=== PATIENT | male | born 1955 | race Caucasian/White ===

== ENCOUNTER 2016-11-06 10:06 | Emergency (ER) | payer OTHER ==
[2016-11-06] MEDS ORDERED: Ketorolac INJ* 30 MG/ML 1 ML VIAL IV PUSH ONE (14:00)
[2016-11-06] MEDS ORDERED: NS 0.9% 1000 ML* 1,000 ML IV ONE (14:03)
[2016-11-06 14:30] LABS: Hematocrit 39 % (42-52); Mean Corpuscular HGB Conc 34 g/dl (31-36); Mean Corpuscular Hemoglobin 28 pg (27-31); Mean Corpuscular Volume 83 fL (80-94); Mean Platelet Volume 8 um3 (7.4-10.4); Red Blood Count 4.63 10^6/ul (4.0-5.4); Red Cell Distribution Width 13 % (10.5-15); White Blood Count 9.7 10^3/ul (3.5-10.8)
[2016-11-06 14:47] LABS: Albumin 3.8 g/dL (3.2-5.2); BUN/Creatinine Ratio 11.4 (8-20); C Reactive Protein 137.71 mg/L (< 5.00); Calcium 9.3 mg/dL (8.6-10.3); EGFR African American 43.8 (>60); EGFR Non-African American 34.1 (>60); Globulin 4.4 g/dL (2-4); Potassium 4.2 mmol/L (3.5-5.0); Total Bilirubin 0.5 mg/dL (0.2-1.0); Total Protein 8.2 g/dL (6.4-8.9)
--- NOTE | 2016-11-06 16:01 | RAD ---
INDICATION: RIGHT lower extremity edema, redness, infection. COMPARISON: January 02, 2016 TECHNIQUE: Jackson scale, color Doppler, and spectral analysis of the deep veins of the RIGHT lower extremity. Vessel compression, phasicity, and augmentation assessed. REPORT: Subcutaneous edema visualized most prominent from level of the knee distal. No loculated soft tissue fluid collection visualized. Normal morphology RIGHT inguinal lymph nodes visualized. The RIGHT common femoral, great saphenous, profunda femoral, femoral, popliteal, and posterior tibial veins are patent. Only one of the peroneal veins could be visualized and appears patent. Patency of the contralateral common femoral vein documented. IMPRESSION: 1. No evidence for above-knee RIGHT lower extremity DVT. 2. Assessment of the RIGHT calf is limited with visualization of only 1 peroneal vein. 3. Extensive subcutaneous edema.
[2016-11-06 17:27] VITALS: BP 164/74
--- NOTE | 2017-01-04 12:41 | ED ---
Lower Extremity - HPI Summary HPI Summary: Pt here w/ possible Rt LE infection. Has redness and swelling which started 5 days ago. Denies fever, chills,N/V/D, weakness, chest pain, SOB. No known injury. Has diabetes - sugars are well controlled. Worse w/ movement, somewhat better w/ rest. - History of Current Complaint Chief Complaint: EDExtremityLower Stated Complaint: INFECTION RIGHT LEG Time Seen by Provider: 11/06/16 13:19 Hx Obtained From: Patient Pain Intensity: 2 Pain Scale Used: 0-10 Numeric - Allergies/Home Medications Allergies/Adverse Reactions: Allergies Allergy/AdvReac Type Severity Reaction Status Date / Time BP med Allergy Rash Uncoded 12/26/16 21:08 PMH/Surg Hx/FS Hx/Imm Hx Previously Healthy: Yes Endocrine/Hematology History: Reports: Hx Diabetes - TYPE 2 / ON ORAL MEDS Denies: Hx Anticoagulant Therapy, Hx Blood Disorders, Hx Thyroid Disease, Hx Coagulopothy Cardiovascular History: Reports: Hx Angina, Hx Hypercholesterolemia, Hx Hypertension, Other Cardiovascular Problems/Disorders - GOUT Denies: Hx Coronary Artery Disease, Hx Deep Vein Thrombosis, Hx Myocardial Infarction, Hx Pacemaker/ICD, Hx Valvular Heart Disease Respiratory History: Denies: Hx Asthma, Hx Chronic Obstructive Pulmonary Disease (COPD) GI History: Denies: Hx Ulcer Musculoskeletal History: Reports: Hx Gout, Other Musculoskeletal History - HIP PAIN Denies: Hx Arthritis, Hx Osteoporosis, Hx Scoliosis Sensory History: Reports: Hx Contacts or Glasses Denies: Hx Hearing Aid Opthamlomology History: Reports: Hx Contacts or Glasses Neurological History: Reports: Hx Headaches Denies: Other Neuro Impairments/Disorders Psychiatric History: Reports: Hx Anxiety, Hx Panic Disorder - Surgical History Surgery Procedure, Year, and Place: POLYPS REMOVED INTESTINE. APPENDECTOMY. KNEE SURGERY 1998 Hx Anesthesia Reactions: No Infectious Disease History: Denies: Hx Clostridium Difficile, Hx Hepatitis, Hx Human Immunodeficiency Virus (HIV), Hx of Known/Suspected MRSA, Hx Shingles, Hx Tuberculosis, Hx Known/ Suspected VRE, Hx Known/Suspected VRSA, History Other Infectious Disease, Traveled Outside the [place] in Last 30 Days - Family History Known Family History: Positive: Cardiac Disease, Other - father - asthma - Social History Alcohol Use: None Hx Substance Use: No Substance Use Type: Reports: None Hx Tobacco Use: No Smoking Status (MU): Never Smoked Tobacco Review of Systems Constitutional: Negative Eyes: Negative Cardiovascular: Negative Respiratory: Negative Positive: no symptoms reported Musculoskeletal: Other - see HPI Skin: Other - see HPI Neurological: Negative Psychological: Normal All Other Systems Reviewed And Are Negative: Yes Physical Exam Triage Information Reviewed: Yes Vital Signs On Initial Exam: Initial Vitals Temp Pulse Resp BP Pulse Ox 98.5 F 94 16 152/81 98 11/06/16 10:13 11/06/16 10:13 11/06/16 10:13 11/06/16 10:13 11/06/16 10:13 Vital Signs Reviewed: Yes Appearance: Positive: Well-Appearing, No Pain Distress, Well-Nourished Skin: Positive: Warm, Dry - mild erythema w/ mild edema over Rt LE - no skin breakdown Musculoskeletal: Positive: Strength/ROM Intact Neurological: Positive: Normal, Sensory/Motor Intact, Alert, Oriented to Person Place, Time Psychiatric: Positive: Normal - Brianna Coma Scale Coma Scale Total: 15 Diagnostics - Vital Signs Vital Signs Temp Pulse Resp BP Pulse Ox 11/06/16 17:09 99.7 F 89 16 164/74 11/06/16 16:05 99.6 F 85 16 147/72 94 11/06/16 11:48 98.5 F 86 18 169/83 98 11/06/16 10:13 98.5 F 94 16 152/81 98 - Laboratory Lab Results: Lab Results 11/06/16 11/06/16 11/06/16 Range/Units 14:20 14:20 14:20 WBC 9.7 (3.5-10.8) 10^3/ul RBC 4.63 (4.0-5.4) 10^6/ul Hgb 13.0 L (14.0-18.0) g/dl Hct 39 L (42-52) % MCV 83 (80-94) fL MCH 28 (27-31) pg MCHC 34 (31-36) g/dl RDW 13 (10.5-15) % Plt Count 335 (150-450) 10^3/ul MPV 8 (7.4-10.4) um3 Neut % (Auto) 71.2 (38-83) % Lymph % (Auto) 16.2 L (25-47) % [place] % (Auto) 9.4 H (1-9) % Eos % (Auto) 1.9 (0-6) % Baso % (Auto) 1.3 (0-2) % Absolute Neuts (auto) 6.9 (1.5-7.7) 10^3/ul Absolute Lymphs (auto) 1.6 (1.0-4.8) 10^3/ul Absolute Monos (auto) 0.9 H (0-0.8) 10^3/ul Absolute Eos (auto) 0.2 (0-0.6) 10^3/ul Absolute Basos (auto) 0.1 (0-0.2) 10^3/ul Absolute Nucleated RBC 0.03 10^3/ul Nucleated RBC % 0.4 Sodium 135 (133-145) mmol/L Potassium 4.2 (3.5-5.0) mmol/L Chloride 101 (101-111) mmol/L Carbon Dioxide 25 (22-32) mmol/L Anion Gap 9 (2-11) mmol/L BUN 23 (6-24) mg/dL Creatinine 2.01 H (0.67-1.17) mg/dL Est GFR ( Amer) 43.8 (>60) Est GFR (Non-Af Amer) 34.1 (>60) BUN/Creatinine Ratio 11.4 (8-20) Glucose 89 (70-100) mg/dL Lactic Acid 0.9 (0.5-2.0) mmol/L Calcium 9.3 (8.6-10.3) mg/dL Total Bilirubin 0.50 (0.2-1.0) mg/dL AST 12 L (13-39) U/L ALT 11 (7-52) U/L Alkaline Phosphatase 52 (34-104) U/L C-Reactive Protein 137.71 H (< 5.00) mg/L Total Protein 8.2 (6.4-8.9) g/dL Albumin 3.8 (3.2-5.2) g/dL Globulin 4.4 H (2-4) g/dL Albumin/Globulin Ratio 0.9 L (1-3) Result Diagrams: 11/06/16 14:20 11/06/16 14:20 Lab Statement: Any lab studies that have been ordered have been reviewed, and results considered in the medical decision making process. Lower Extremity Course/Dx - Course Course Of Treatment: DVT study neg - pt appears to have cellulitis - labs and vitals are unremarkable for systemic infection. Will start PO anbx and have pt f /u w/ PCP in a few days for wound recheck. Also educated about monitoring for gross changes in glucose levels and to report to PCP or ED if these present. Reviewed danger s/sx as well for when to return to ED. Pt voices understanding. - Diagnoses Provider Diagnoses: Cellulitis, leg Discharge - Discharge Plan Condition: Stable Disposition: HOME Patient Education Materials: Cellulitis (ED) Referrals: Daiana Bautista [Primary Care Provider] - Additional Instructions: You appear to have a cellulitis in your leg. This is a skin infection. Complete antibiotics as directed. Follow-up with PCP Friday for wound recheck. In the meantime, rest, elevate and take ibuprofen 600mg with food every 6 hours alternating with acetaminophen 650mg every 6 hours for pain/fever. It is also important that you take your diabetes medications as directed, check your glucose levels and eat a healthy diabetic diet during illness to ensure proper healing. *If symptoms are worse and/or you develop fever, chills, increased glucose despite taking ibuprofen alternating with acetaminophen for pain and fever, return to ED
== END 2016-11-06 17:09 | disposition home or self-care (01) ==
LOC: ED 10:06
DX: L03.119 Cellulitis of unspecified part of limb (principal)
CPT/HCPCS: 36415; 80053; 83605; 85025; 86140; 96374; 99282; J1885

== ENCOUNTER 2016-12-26 21:01 | Emergency (ER) | payer OTHER ==
[2016-12-26 21:08] VITALS: BP 158/78
[2016-12-26] MEDS ORDERED: Sulfamethox/Trimethoprim DS 800/160* TAB PO ONE (21:21)
--- NOTE | 2016-12-26 21:27 | UC ---
Upper Extremity HPI - HPI Summary HPI Summary: Pain, redness, and swelling in R posterior elbow since the middle of last night. Yesterday afternoon had blood draw for annual labs at [facility] in R antecubital fossa. Concerned about blood clots. Denies falls, contusion, trauma to elbow, recent or distant skin injuries, or chronic sources of pressure on the area. - History of Current Complaint Chief Complaint: UCUpperExtremity Stated Complaint: ARM PAIN Time Seen by Provider: 12/26/16 21:03 Hx Obtained From: Patient ?: No Onset/Duration: Gradual Onset, Lasting Hours Severity Initially: Mild Severity Currently: Moderate Location Of Pain: Is Discrete @ Character: Throbbing, Stiffness Aggravating Factor(s): Movement Alleviating Factor(s): Nothing - Allergies/Home Medications Allergies/Adverse Reactions: Allergies Allergy/AdvReac Type Severity Reaction Status Date / Time BP med Allergy Rash Uncoded 12/26/16 21:08 Home Medications: Home Medications Acetaminophen W/ Codeine [Acetaminophen/Codeine #3 300-30 mg] 1 tab PO PRN 12/26 [History] metFORMIN* [Glucophage 500 MG TAB *] 1,000 mg PO DAILY 12/26/16 [History Confirmed 12/26/16] PMH/Surg Hx/FS Hx/Imm Hx Previously Healthy: Yes - Surgical History Surgical History: Yes Surgery Procedure, Year, and Place: POLYPS REMOVED INTESTINE. APPENDECTOMY. KNEE SURGERY 1998 - Family History Known Family History: Positive: Cardiac Disease, Other - father - asthma - Social History Occupation: Retired Lives: With Family Alcohol Use: None Substance Use Type: None Smoking Status (MU): Never Smoked Tobacco - Immunization History Most Recent Influenza Vaccination: FALL 2014 Most Recent Tetanus Shot: UP TO DATE Most Recent Pneumonia Vaccination: 10/12/2013 Review of Systems Constitutional: Negative Skin: Other - redness R elbow Eyes: Negative ENT: Negative Respiratory: Negative Cardiovascular: Negative Gastrointestinal: Negative Genitourinary: Negative Motor: Negative Neurovascular: Negative Musculoskeletal: Negative Neurological: Negative Psychological: Negative All Other Systems Reviewed And Are Negative: Yes Physical Exam Triage Information Reviewed: Yes Appearance: Well-Appearing, Obese Vital Signs: Initial Vital Signs Temp 99.8 F 12/26/16 21:04 Pulse 64 12/26/16 21:04 Resp 16 12/26/16 21:04 BP 158/78 12/26/16 21:04 Pulse Ox 100 12/26/16 21:04 Vital Signs Reviewed: Yes Eye Exam: Normal Eyes: Positive: Conjunctiva Clear ENT Exam: Normal ENT: Positive: Normal ENT inspection, Hearing grossly normal, Pharynx normal, TMs normal Dental Exam: Normal Neck exam: Normal Neck: Positive: Supple, Nontender, No Lymphadenopathy Respiratory Exam: Normal Respiratory: Positive: Chest non-tender, Lungs clear, Normal breath sounds, No respiratory distress, No accessory muscle use Cardiovascular Exam: Normal Cardiovascular: Positive: RRR, No Murmur Musculoskeletal: Positive: Strength Intact, ROM Intact Neurological Exam: Normal Neurological: Positive: Alert Psychological Exam: Normal Skin Exam: Other - Red, hot swollen skin on R posterior elbow approx 10cm x 12cm. No fluctuant mass in skin or bursa, no skin injury visible. Venipuncture site on R antecubital fossa unremarkable. Upper Extremity Course/Dx - Differential Dx/Diagnosis Provider Diagnoses: Cellulitis R elbow Discharge - Discharge Plan Condition: Stable Disposition: HOME Prescriptions: Sulfamethox/Trimethoprim DS* [Bactrim DS 800/160 TAB*] 1 tab PO BID #14 tab Patient Education Materials: Cellulitis (ED) Referrals: Daiana Bautista [Primary Care Provider] - Additional Instructions: Apply warm soaks and elevate the arm when possible. You should see marked improvement in your pain, redness, and swelling within 48 hours. If you are not improving, and especially if you are worsening, please go to the emergency department for further care. Images Front/Back of Body, Lg (Toombs): 1 - well-defined oval area of redness, warmth, tenderness, swelling
== END 2016-12-26 21:30 | disposition home or self-care (01) ==
LOC: UCEAST 21:01
DX: L03.113 Cellulitis of right upper limb (principal); E66.9 Obesity, unspecified; Z88.8 Allergy status to other drugs, medicaments and biological substances
CPT/HCPCS: 99212; A9270-GY; G0463

== ENCOUNTER 2016-12-29 09:41 | Inpatient (IN) | payer OTHER ==
[2016-12-29 11:24] LABS: Hematocrit 33 % (42-52); Hemoglobin 11.2 g/dl (14.0-18.0); Mean Corpuscular HGB Conc 34 g/dl (31-36); Mean Corpuscular Hemoglobin 28 pg (27-31); Mean Corpuscular Volume 82 fL (80-94); Mean Platelet Volume 8 um3 (7.4-10.4); Red Blood Count 4.05 10^6/ul (4.0-5.4); Red Cell Distribution Width 13 % (10.5-15)
[2016-12-29 11:43] LABS: Albumin 3.4 g/dL (3.2-5.2); BUN/Creatinine Ratio 14.1 (8-20); C Reactive Protein 98.19 mg/L (< 5.00); Calcium 8.5 mg/dL (8.6-10.3); EGFR African American 25.1 (>60); EGFR Non-African American 19.5 (>60); Potassium 4.3 mmol/L (3.5-5.0); Total Bilirubin 0.3 mg/dL (0.2-1.0); Total Protein 7.4 g/dL (6.4-8.9)
--- NOTE | 2016-12-29 11:54 | RAD ---
HISTORY: Right upper extremity pain and swelling. COMPARISON: Similar ultrasound examination dated November 06, 2016 TECHNIQUE: Multiple transverse and longitudinal ultrasound images were obtained of the veins of the right lower extremity upper extremity using grayscale, color Doppler, and spectral Doppler imaging with and without compression and with augmentation. FINDINGS: VEINS: The axillary, brachial, basilic and cephalic are compressible throughout their course, with normal flow on color Doppler imaging and normal response to augmentation on spectral Doppler imaging. The subclavian vein exhibits appropriate augmentation and phasicity. The radial and ulnar veins are compressible. Evidence of adequate flow is identified in the right internal jugular and subclavian vein as well. SOFT TISSUES: Sonographic evidence of subcutaneous edema is seen overlying the right forearm. IMPRESSION: No sonographic evidence of deep vein thrombosis.
[2016-12-29] MEDS ORDERED: cefTRIAXone VIAL(*) 1,000 MG in NS 0.9% 50 ML* 50 ML IVPB ONE (12:25)
[2016-12-29] MEDS ORDERED: cefTRIAXone(*) 1 GM ADVAN ONE (13:04)
[2016-12-29] MEDS ORDERED: Acetaminophen TAB* 325 MG PO PRN (14:02)
[2016-12-29] MEDS ORDERED: Ondansetron INJ* 2 MG/ML VIAL IV PRN (14:02)
[2016-12-29] MEDS ORDERED: Dextrose 50% Syringe 50 ML* 25 GM/50 ML SYRINGE IV PUSH PRN (14:05)
[2016-12-29] MEDS: NS 0.9% 1000 ML* 1,000 ML IV SCH (16:22)
[2016-12-29] MEDS: Insulin LISPRO* 1 UNITS UNIT SUBCUT SCH (17:27)
[2016-12-29] MEDS: oxyCODONE/Acetamin 5/325 MG* TAB PO PRN (20:08)
[2016-12-29] MEDS: Heparin VIAL(*) 5000 UNITS/ML VIAL (FIVE THOUSAND) SUBCUT SCH (21:43)
--- NOTE | 2016-12-29 22:25 | HP ---
ATTENDING ADDENDUM NOW INCLUDED ON THIS REPORT CC: Daiana Bautista, [place], [place]* MEDICINE HISTORY AND PHYSICAL: DATE OF ADMISSION: 12/29/16 PROVIDER: Peewee Conn NP ATTENDING PHYSICIAN: Dr. Emily Steel *(as dictated by Peewee Conn NP). PRIMARY CARE PROVIDER: LIDA Melgar, [facility]. CHIEF COMPLAINT: Right upper extremity swelling following blood draw, now with nausea and dizziness. HISTORY OF PRESENT ILLNESS: Mr. Carrillo is a 61-year-old male patient, who reports having a blood draw at the [facility] at [place] on Friday, 25 of December. The patient states the blood draw was normal with no complaints of excess pain or trauma. However, the following day, he reports not being able to bend his arm. He did have the blood drawn from his antecubital site. He reported swelling and pain to the arm and reports it was warm to the touch. He did report to [facility] for further evaluation and was started on Bactrim. The patient states that he was taking his Bactrim; however, the swelling has progressed and has now extended to his hand. He reports pain in the joint, but is able to move the joints. He also reports decreased p.o. intake and dizziness, lightheadedness over the past few days secondary to starting his Bactrim. The patient denies any recent falls or contusions to the right upper extremity as well as recent trauma or injury or compression. He denies any fever or chills at home. He denies any cold or flu symptoms. He does not have any chest, pain, palpitations, or racing heartbeats. He does report right upper extremity edema. He denies any cough or shortness of breath , abdominal pain, vomiting, or diarrhea. He denies any dysuria, although he has decreased urinary output. He denies any focal weakness, sensory loss, visual or hearing changes, or any other than new joint or muscle pains. PAST MEDICAL HISTORY: 1. Hypertension. 2. Hyperlipidemia. 3. Diabetes mellitus, type 2. 4. History of anxiety. 5. History of gout. The patient states that this has resolved since he stopped using alcohol. PAST SURGICAL HISTORY: 1. Appendectomy. 2. Knee surgery. HOME MEDICATIONS: The patient is unsure of what he takes. He does report takin. Metoprolol XL. 2. Metformin. 3. Bactrim. 4. Amlodipine, but he cannot confirm the doses. [facility] The patient basically also takes cholesterol medication and states he was previously on Neurontin, but then it caused some diarrhea. ALLERGIES: Include a BLOOD PRESSURE MEDICATION that is unknown. FAMILY HISTORY: Reports history of heart disease in the father and history of diabetes in his mother. SOCIAL HISTORY: The patient denies any former or current tobacco use. He reports previous alcohol use but has stopped and does not drink currently. He denies any illicit drug use. He is not working. He is currently on disability. He lives alone. His son, Amie Carrillo, is his healthcare proxy in the event of emergency. REVIEW OF SYSTEMS: As previously mentioned, all others not mentioned are negative. PHYSICAL EXAMINATION GENERAL: Mr. Carrillo is a pleasant middle-aged male patient who is lying in ED stretcher in no acute distress. VITAL SIGNS: As follows; temperature 97, heart rate , respiratory rate 22 , blood pressure 129/67, O2 saturation 95% on room air. HEENT: Head is atraumatic, normocephalic. Face is symmetrical. Pupils are equal, round, and reactive to light. Oral mucosa appears moist. The patient has poor dentition. NECK: Supple. No lymphadenopathy appreciated. RESPIRATORY: Lungs are clear to auscultation with no accessory muscle use. CARDIAC: S1, S2 heart sounds. The patient has a systolic murmur. There is no peripheral edema to lower extremities. Distal pulses are 1+ in the lower extremities and 1+ to the upper extremities. There is right upper extremity edema. ABDOMEN: Soft, nontender, nondistended. Bowel sounds are present times all 4 quadrants. MUSCULOSKELETAL: There is no clubbing or cyanosis. The patient appears to have full range of motion. There is some mildly limited range of motion to the right hand finger joints, although they can be moved passively. The patient is able to demonstrate movement, although it does seem to cause some pain. NEURO: The patient is able to move all extremities. Cranial nerves II through XII are grossly intact. The patient with mildly decreased sensation to light touch and pinprick to lower extremities. PSYCH: He is alert and oriented x3. SKIN: Erythema and edema noted to the right upper extremity with notable edema up in the lateral portion of the lower right arm as well as to the dorsal surface of the hand. The venipuncture site to the right antecubital space is not visualized. There was no fluctuance or mass noted over the elbow, wrist joints or finger joints. No open areas or pockets of drainage noted. DIAGNOSTIC STUDIES/LAB DATA: CBC: WBC 9.0, hemoglobin , hematocrit 33, platelet count 242. CMP: Sodium 132, potassium 4.3, chloride 100, carbon dioxide 22, BUN 46, creatinine 3.26, glucose 104, lactic acid 1.1, calcium 8.5. Total bilirubin 0.3, AST 11, ALT 9, alk phos 52. CRP 98.19. Albumin 3.4. Venous Doppler study of the right lower extremity shows no sonographic evidence of deep vein thrombosis, no sonographic evidence of subcutaneous edema in the right forearm. Old medical records were reviewed. ASSESSMENT AND PLAN: Mr. Carrillo is a 61-year-old male patient with past medical history significant for previous cellulitis, hypertension, hyperlipidemia, diabetes, and gout who presents today with concern for continued right upper extremity cellulitis as well as acute kidney injury. We will admit him as observation patient to the medicine floor. Plan is as follows : 1. Cellulitis: Of note, the patient was here at our convenient care in October and was also diagnosed with cellulitis at that time, although that was to the patient's leg. At that time, he was treated with Bactrim and Augmentin. The patient also reports a previous history of gout and of note was seen last year in the hospital with what appeared to be either gout flare-up or arthritis. The patient is not a strong historian, it is unclear as why he keeps getting the recurrent cellulitis. I will check a hemoglobin A1c, although his random glucose does appear to be well controlled. In any case the patient was previously on Bactrim, which may have been contributing to his symptoms of nausea. We will switch him to Kefzol q.8. We will continue to monitor. At this point in time, there does not seem to be significant joint involvement. The majority of the swelling is located over the lateral portion of his right arm as well as dorsum of his hand. We will continue to follow closely. 2. Acute kidney injury: This is an acute on chronic kidney injury. The patient's last labs from October 2016 showed creatinine of 2.01. I am unclear what his baseline is and we will attempt to obtain some labs from the [facility] on Friday; however, his creatinine today is 3.26. He does report poor p.o. intake , which indicates that he likely has hypovolemia secondary to recent nausea. This may also be contributing to his complaints of dizziness and lightheadedness. We will hydrate the patient with normal saline and recheck his BMP tomorrow, also carefully monitor his I's and O's. 3. Hyponatremia: Likely secondary to hypovolemic state, secondary to dehydration from nausea. We will hydrate the patient with fluid and recheck tomorrow. 4. History of hypertension: The patient's blood pressure is currently within normal limits. We will need to confirm with home medications at this time. The patient is able to confirm that he is on amlodipine, metoprolol, which I will continue. The rest of the medications we will confirm with the [facility] tomorrow, Friday. 5. Diabetes mellitus: The patient states he is on metformin, which we will hold while he is here especially in light of his renal function. We will continue him on lispro sliding scale insulin and check fingerstick blood glucose h.s. and a.c. 6. Hyperlipidemia: The patient states he is on a statin medication. He is unable to tell me what medication that is. [facility] and resume when confirmed. 7. Peripheral neuropathy: The patient reports that he was previously on Neurontin, but stopped this because he feels this is causing him diarrhea. Again, we will obtain records from the [facility] to better clarify this. 8. History of anxiety: The patient states he does not take any medications for this. Continue to offer supportive care. 9. History of gout: The patient is not on any maintenance medications and denies any recent flare-ups. 10. FEN: Continue with IV hydration. The patient was ordered consistent carbohydrate diet. 11. Code status: The patient is a full code. 12. DVT prophylaxis: He is ordered subcu heparin. 13. Disposition: Admit to Medicine under observation status. Discharge to home when medically stable. TIME SPENT: Time spent on this admission was approximately 60 minutes, more than half that time was spent [id number] with the patient obtaining history and physical, performing the physical examination, and reviewing the plan of care. Plan of care was also reviewed with my attending, Dr. Steel, who is in agreement. PEEWEE CONN NP ADDENDUM: Mr. Carrillo is a 61-year-old male, who was treated as an outpatient for his arm cellulitis with Bactrim. Today, he presents complaining of continuation of symptoms of arm redness with creatinine elevated from his usual baseline. He is going to be admitted, treated with intravenous antibiotics for cellulitis. His acute renal failure is most likely a combination of spurious elevation of creatinine due to Bactrim as well as most likely the ongoing infection. For further details of the patient's presentation and plan, please see history and physical dictated by Peewee Conn NP, on 12/29/16, with which I agree. EMILY STEEL MD [id number]/[facility] #: [id number]/CPS #: [id number] MAG
--- NOTE | 2016-12-29 22:33 | HP ---
HISTORY AND PHYSICAL:* ADDENDUM: Mr. Carrillo is a 61-year-old male, who was treated as an outpatient for his arm cellulitis with Bactrim. Today, he presents complaining of continuation of symptoms of arm redness with creatinine elevated from his usual baseline. He is going to be admitted, treated with intravenous antibiotics for cellulitis. His acute renal failure is most likely a combination of spurious elevation of creatinine due to Bactrim as well as most likely the ongoing infection. For further details of the patient's presentation and plan, please see history and physical dictated by Keren Padilla NP, on 12/29/16, with which I agree. [id number]/[facility] #: [id number] MTDHeather
[2016-12-30] MEDS: ceFAZolin VIAL(*) 1 GM in NS 0.9% 50 ML* 50 ML IVPB SCH ×3 (00:13→23:55)
[2016-12-30] MEDS: NS 0.9% 1000 ML* 1,000 ML IV SCH (03:20)
[2016-12-30] MEDS: Heparin VIAL(*) 5000 UNITS/ML VIAL (FIVE THOUSAND) SUBCUT SCH ×3 (05:56→22:30)
[2016-12-30 06:05] LABS: Hematocrit 33 % (42-52); Hemoglobin 11.2 g/dl (14.0-18.0); Mean Corpuscular HGB Conc 34 g/dl (31-36); Mean Corpuscular Hemoglobin 28 pg (27-31); Mean Corpuscular Volume 82 fL (80-94); Mean Platelet Volume 9 um3 (7.4-10.4); Red Blood Count 3.98 10^6/ul (4.0-5.4); Red Cell Distribution Width 13 % (10.5-15); White Blood Count 7.8 10^3/ul (3.5-10.8)
[2016-12-30 06:33] LABS: BUN/Creatinine Ratio 15.2 (8-20); C Reactive Protein 69.13 mg/L (< 5.00); Calcium 8.4 mg/dL (8.6-10.3); EGFR African American 29.6 (>60)
[2016-12-30] MEDS: Metoprolol Succinate XL TAB* 25 MG PO SCH (08:34)
[2016-12-30] MEDS: amLODIPine TAB* 5 MG PO SCH (08:35)
[2016-12-30] MEDS: Insulin LISPRO* 1 UNITS UNIT SUBCUT SCH ×3 (08:35→17:29)
--- NOTE | 2016-12-30 08:59 | PN ---
Subjective Date of Service: 12/30/16 Interval History: Patient seen and examined at bedside. Reports right arm swelling and pain is mildly better but still endorses pain with extension/flexion movements of fingers and elbow. Denies CP, SOB, fever/chills. Denies any further dizziness or nausea. Family History: Unchanged from Admission Social History: Unchanged from Admission Past Medical History: Unchanged from Admission Objective Active Medications: Acetaminophen (Tylenol Tab*) 650 mg PO Q4H PRN PRN Reason: FEVER/PAIN Amlodipine Besylate (Norvasc Tab*) 10 mg PO DAILY [facility] Last Admin: 12/30/16 08:35 Dose: 10 mg Dextrose (D50w Syringe 50 Ml*) 12.5 gm IV PUSH .FOR FS < 60 - SS PRN PRN Reason: FS < 60 Heparin Sodium (Porcine) (Heparin Vial(*)) 5,000 units SUBCUT Q8HR [facility] Last Admin: 12/30/16 05:56 Dose: 5,000 units Cefazolin Sodium 1 gm/ Sodium (Chloride) 50 mls @ 200 mls/hr IVPB Q12H [facility] Last Admin: 12/30/16 00:13 Dose: 200 mls/hr Sodium Chloride (Ns 0.9% 1000 Ml*) 1,000 mls @ 100 mls/hr IV PER RATE [facility] Stop: 12/31/16 00:14 Last Admin: 12/30/16 03:20 Dose: 100 mls/hr Insulin Human Lispro (Humalog*) 0 units SUBCUT AC [facility] PRN Reason: Protocol Last Admin: 12/30/16 08:35 Dose: Not Given Metoprolol Succinate (Toprol Xl Tab*) 75 mg PO DAILY [facility] Last Admin: 12/30/16 08:34 Dose: 75 mg Ondansetron HCl (Zofran Inj*) 4 mg IV Q6H PRN PRN Reason: NAUSEA/VOMITING Oxycodone/Acetaminophen (Percocet 5/325 Tab*) 1 tab PO Q4H PRN PRN Reason: Pain Last Admin: 12/29/16 20:08 Dose: 1 tab Vital Signs 12/29/16 12/29/16 12/29/16 15:11 15:24 16:46 Temperature 98.0 F 98.0 F Pulse Rate 63 63 Respiratory 18 18 18 Rate Blood Pressure 143/77 143/77 (mmHg) O2 Sat by Pulse 98 98 Oximetry 12/29/16 12/29/16 12/29/16 19:46 20:08 22:08 Temperature 98.2 F Pulse Rate 65 Respiratory 17 17 16 Rate Blood Pressure 126/62 (mmHg) O2 Sat by Pulse 94 Oximetry 12/30/16 12/30/16 12/30/16 00:25 04:15 07:44 Temperature 97.6 F 97.7 F 97.9 F Pulse Rate 59 64 63 Respiratory 16 Rate Blood Pressure 127/54 132/56 150/71 (mmHg) O2 Sat by Pulse 94 93 94 Oximetry Oxygen Devices in Use Now: None Appearance: Male patient, sitting on edge of bed, eating breakfast, NAD Eyes: PERRLA Ears/Nose/Mouth/Throat: Mucous Membranes Moist Respiratory: Symmetrical Chest Expansion and Respiratory Effort, Clear to Auscultation Cardiovascular: NL Sounds; No Murmurs; No JVD, RRR Abdominal: NL Sounds; No Tenderness; No Distention Extremities: - - RUE edema to lateral and posterior forearm and elbow and along dorsum of right hand and fingers. No fluctuance or mass noted over elbow or wrist. Neurological: Alert and Oriented x 3 Lines/Tubes/Other Access: Clean, Dry and Intact Peripheral IV Nutrition: Taking PO's Result Diagrams: 12/30/16 05:19 12/30/16 05:19 Diagnostic Imaging: Doppler RUE: No sonographic evidence of DVT Assess/Plan/Problems-Billing Assessment: Mr. Carrillo is a 61 yo male with a PMH of HTN, HLD, DM, anxiety, and gout who presented to the ED on 12/29 with concern for dizziness, nausea, RUE edema and pain; patient previously on Bactrim prescribed by with no improvement. Patient also found to have JAJA. - Patient Problems (1) Cellulitis of right upper extremity Code(s): L03.113 - CELLULITIS OF RIGHT UPPER LIMB Comment: Patient seen by [facility] last week and prescribed Bactrim. Patient had little improvement in edema and erythema and reported subsequent dizziness and nausea. No fluctuance or mass seen over elbow, at wrist, or in finger joints. Continue cefazolin. Will consult ID, given recurrence of cellulitis and atypical distribution. (2) Acute kidney injury Code(s): N17.9 - ACUTE KIDNEY FAILURE, UNSPECIFIED Comment: Suspect acute on chronic process Suspect secondary to dehydration and Bactrim Now improving Obtain records from [facility] to establish baseline. (3) Diabetes Code(s): E11.9 - TYPE 2 DIABETES MELLITUS WITHOUT COMPLICATIONS Comment: HgbA1c 5.9 Continue FSBG with Lispro SSI Resume home metformin at discharge. (4) HTN (hypertension) Code(s): I10 - ESSENTIAL (PRIMARY) HYPERTENSION Comment: Mostly normotensive Continue home metoprolol, amlodipine. (5) HLD (hyperlipidemia) Code(s): E78.5 - HYPERLIPIDEMIA, UNSPECIFIED Comment: Obtain [facility] med list. Patient does not have documented hx of statin use. Continue heart healthy diet. (6) DVT prophylaxis Comment: SQ heparin Status and Disposition: OBV to inpatient. Anticipate dc in 2-3 days.
[2016-12-30 09:25] LABS: Uric Acid 9.9 mg/dL (4.4-7.6)
[2016-12-30] MEDS ORDERED: Vancomycin(*) 1,500 MG in NS 0.9% 250 ML* 250 ML IVPB ONE (14:00)
--- NOTE | 2016-12-30 14:18 | RAD ---
Indication: RIGHT forearm swelling and redness radiating into the fingertips. Cellulitis. Comparison: December 30, 2016 radiographs. Technique: Noncontrast MRI from the RIGHT elbow through the RIGHT wrist and metacarpal phalangeal joints. Multiplanar reformation. Report: Normal articular alignment. Negative for fracture. Small elbow joint effusion. No periosteal reaction or osteolysis evident. Extensive infiltrative subcutaneous edema from the visualized distal upper arm through the wrist with relative sparing of the radial aspect. No significant edema evident within the muscular compartments. No appreciable fluid within the dorsal or volar tendons sheaths at the wrist. Negative for subcutaneous emphysema. Soft tissue calcification is noted over the dorsal ulnar aspect of the elbow and proximal forearm. IMPRESSION: 1. The constellation of findings is consistent with extensive cellulitis given the clinical context. 2. Potential olecranon bursitis with calcified loose bodies. Correlate with clinical assessment. 3. No compelling CT evidence for presence of a loculated soft tissue plane abscess collection.
--- NOTE | 2016-12-30 14:50 | RAD ---
Indication: Right hand pain. 4 views of the right hand demonstrates no fracture. No other bone or joint abnormality is noted. IMPRESSION: Unremarkable right hand.
--- NOTE | 2016-12-30 14:51 | RAD ---
Indication: Right forearm swelling. 2 views of the right forearm demonstrates no fracture or dislocation. No other bone or joint abnormality is identified. IMPRESSION: No fracture of the right forearm is noted.
--- NOTE | 2016-12-30 15:26 | RAD ---
INDICATION: Soft tissue swelling COMPARISON: None TECHNIQUE: AP, lateral, and oblique views were obtained. FINDINGS: There are no acute bony findings. There is mild spurring from the coronoid process and olecranon There is diffuse subcutaneous edema with loss of the normal fat muscle interface. This extends into the forearm. There is no joint effusion. The elbow articulates normally. IMPRESSION: DIFFUSE SOFT TISSUE SWELLING ABOUT THE ELBOW EXTENDING INTO THE FOREARM. NO FRACTURE OR FOREIGN BODY.
[2016-12-30] MEDS ORDERED: Vancomycin per Pharmacy* NOTE FOLLOW UP PRN (15:57)
--- NOTE | 2016-12-30 16:14 | CONS ---
CONSULTATION REPORT: DATE OF CONSULTATION: 12/30/16 REQUESTING PROVIDER: Keren Padilla NP CONSULTING SERVICE: Infectious Disease. REASON FOR CONSULTATION: Right arm pain and swelling. IMPRESSION: 1. Right arm swelling and pain from the elbow to the fingertips, worse at the elbow, MCP joint, PIP and DIP joints; decreased finger flexion and extension; decreased elbow extension and flexion. The wrist is nontender and his range of motion is okay at the wrist. He has likely cellulitis, possible suppurative tenosynovitis, possible elbow septic arthritis. Myositis is a consideration as well given the diffuse aspect of this process. He is not febrile. He does not have bad pain with palpation of the musculature of the forearm, so I think myositis less likely as well as a fasciitis less likely. 2. Diabetes. RECOMMENDATIONS: Agree with cefazolin. I will add vancomycin in the event this is a resistant Staphylococcal infection. CT scan is pending. I would also ask Orthopedics to see him given what appears to be joint involvement of the right elbow and flexor tendons of the wrist. HISTORY OF PRESENT ILLNESS: This is a 61-year-old diabetic admitted with right arm pain and swelling. He has no particular injury, though he did have a blood draw last week. He a day later, developed some pain and swelling in the forearm , could not bend his fingers as well. On the , he came to the hospital. He has been afebrile. His CRP was 98 yesterday; it is down to 70 today. He was started on ceftriaxone, changed to cefazolin today. His creatinine was 3.2 yesterday; it is 2.8 today. He is feeling a bit better today. Energy and appetite improved. He has ongoing pain in the elbow and fingers. It is harder to bend both the elbow and the fingers. His wrist feels okay as far as moving that goes. He has not had anything like this in the past. He does not recall any particular injury. PAST MEDICAL HISTORY: 1. Diabetes. 2. Obesity. 3. Hypertension. 4. Hyperlipidemia. 5. Anxiety. 6. Gout. 7. Status post appendectomy. 8. Status post knee surgery. MEDICATIONS: 1. Tylenol. 2. Heparin subcutaneous injection. 3. Cefazolin 1 g every 12 hours. 4. Amlodipine. ALLERGIES: UNKNOWN BLOOD PRESSURE MEDICATION. FAMILY HISTORY: Father with heart disease. Mother with diabetes. SOCIAL HISTORY: He lives in [place]. No travel or sick contacts. No injection drugs. REVIEW OF SYSTEMS: All negative for review of systems except as noted above in the history of present illness. PHYSICAL EXAMINATION: Vital Signs: Temperature 36.6, heart rate 60, respiratory rate 16, blood pressure 150/70, O2 sat 94% on room air. In general , he is awake, not in distress. Neurologic: He is oriented x3. Follows all commands. HEENT: There is no conjunctival hemorrhage. Oropharynx without lesions. Neck: Supple without nuchal rigidity. Heart: Regular rate and rhythm without murmurs, rubs, or gallops. Lungs: Clear to auscultation bilaterally. Abdomen: Soft, nontender, nondistended. Skin: There is no rash or splinter hemorrhages. Musculoskeletal: There is no spine tenderness to palpation. The right elbow has decreased flexion and extension due to pain. It is okay with supination and pronation. The right wrist, there is no pain with flexion and extension. The MCP and PIP symptoms, flexion is decreased due to pain. There is no crepitus or fluctuance or tenderness from the elbow to the wrist nor is there is in the musculature of the fingers. LABORATORY DATA: CRP 70. Creatinine 2.8. White blood cell count 7, hemoglobin 11, platelets 244,000. Please see impression and recommendations outlined above, which I have discussed with Keren Padilla NP. Thanks for asking me to see Mr. Carrillo in consultation. [id number]/[facility] #: [id number] MTDD
[2016-12-30] MEDS: oxyCODONE/Acetamin 5/325 MG* TAB PO PRN (19:39)
[2016-12-31] MEDS: Vancomycin(*) 1,000 MG in NS 0.9% 250 ML* 250 ML IVPB SCH ×2 (04:31→16:53)
[2016-12-31] MEDS: Heparin VIAL(*) 5000 UNITS/ML VIAL (FIVE THOUSAND) SUBCUT SCH ×3 (05:35→21:32)
[2016-12-31 07:05] LABS: BUN/Creatinine Ratio 15.5 (8-20); Calcium 8.5 mg/dL (8.6-10.3); EGFR African American 37.1 (>60); EGFR Non-African American 28.9 (>60); Potassium 4.1 mmol/L (3.5-5.0)
--- NOTE | 2016-12-31 07:51 | RAD ---
INDICATION: Right forearm cellulitis evaluate for effusion. COMPARISON: Comparison is made with a prior x-ray study of the right forearm and CT of the right forearm from December 30, 2016. TECHNIQUE: Axial, sagittal and coronal T1 and T2-weighted images of the right forearm were obtained. FINDINGS: There is a large amount of soft tissue swelling with fluid tracking mainly within the subcutaneous tissues most consistent with cellulitis. In addition there is mild fluid seen within the interfascial muscle planes consistent with fasciitis. The bones are normal in signal intensity without evidence for osteomyelitis. There is a small effusion within the elbow joint. No focal fluid collection or abscess is seen. IMPRESSION: 1. FINDINGS MOST CONSISTENT WITH CELLULITIS AND FASCIITIS. NO EVIDENCE FOR ABSCESS. 2. SMALL EFFUSION WITHIN THE ELBOW JOINT.
[2016-12-31] MEDS: Insulin LISPRO* 1 UNITS UNIT SUBCUT SCH ×3 (07:58→16:59)
--- NOTE | 2016-12-31 08:45 | PN ---
Subjective Date of Service: 12/31/16 Interval History: Patient seen and examined at bedside. He denies fever/chills, CP, SOB, abd pain, n/v. He reports his right arm is starting to feel better today and notes less redness and swelling. Better ROM of noted today. Family History: Unchanged from Admission Social History: Unchanged from Admission Past Medical History: Unchanged from Admission Objective Active Medications: Acetaminophen (Tylenol Tab*) 650 mg PO Q4H PRN PRN Reason: FEVER/PAIN Amlodipine Besylate (Norvasc Tab*) 10 mg PO DAILY [facility] Last Admin: 12/30/16 08:35 Dose: 10 mg Dextrose (D50w Syringe 50 Ml*) 12.5 gm IV PUSH .FOR FS < 60 - SS PRN PRN Reason: FS < 60 Heparin Sodium (Porcine) (Heparin Vial(*)) 5,000 units SUBCUT Q8HR [facility] Last Admin: 12/31/16 05:35 Dose: 5,000 units Cefazolin Sodium 1 gm/ Sodium (Chloride) 50 mls @ 200 mls/hr IVPB Q12H [facility] Last Admin: 12/30/16 23:55 Dose: 200 mls/hr Vancomycin HCl 1,000 mg/ (Sodium Chloride) 250 mls @ 166.667 mls/hr IVPB Q12H [facility] Last Admin: 12/31/16 04:31 Dose: 166.667 mls/hr Insulin Human Lispro (Humalog*) 0 units SUBCUT AC [facility] PRN Reason: Protocol Last Admin: 12/31/16 07:58 Dose: Not Given Metoprolol Succinate (Toprol Xl Tab*) 75 mg PO DAILY [facility] Last Admin: 12/30/16 08:34 Dose: 75 mg Ondansetron HCl (Zofran Inj*) 4 mg IV Q6H PRN PRN Reason: NAUSEA/VOMITING Oxycodone/Acetaminophen (Percocet 5/325 Tab*) 1 tab PO Q4H PRN PRN Reason: Pain Last Admin: 12/30/16 19:39 Dose: 1 tab Pharmacy Consult (Vancomycin Per Pharmacy*) 1 note FOLLOW UP . PRN PRN Reason: PER PROTOCOL Pharmacy Profile Note (Vancomycin Trough Check) 1 note FOLLOW UP 1700 ONE Stop: 01/01/17 17:01 Vital Signs 12/30/16 12/30/16 12/30/16 11:33 15:38 15:47 Temperature 97.9 F 97.6 F 97.6 F Pulse Rate 55 61 61 Respiratory 16 16 16 Rate Blood Pressure 136/71 150/66 150/66 (mmHg) O2 Sat by Pulse 98 96 Oximetry 12/30/16 12/30/16 12/30/16 18:27 18:34 19:39 Temperature 97.8 F 97.8 F Pulse Rate 69 69 Respiratory 16 16 16 Rate Blood Pressure 164/68 164/68 (mmHg) O2 Sat by Pulse 98 98 Oximetry 12/30/16 12/30/16 12/30/16 20:00 21:39 23:20 Temperature 97.9 F Pulse Rate 62 Respiratory 16 16 16 Rate Blood Pressure 155/67 (mmHg) O2 Sat by Pulse 96 Oximetry 12/31/16 12/31/16 03:49 07:35 Temperature 97.7 F 97.7 F Pulse Rate 61 53 Respiratory 16 18 Rate Blood Pressure 156/75 143/64 (mmHg) O2 Sat by Pulse 98 98 Oximetry Oxygen Devices in Use Now: None Appearance: Male patient, lying in bed, NAD Eyes: PERRLA Ears/Nose/Mouth/Throat: Mucous Membranes Moist Respiratory: Symmetrical Chest Expansion and Respiratory Effort, Clear to Auscultation Cardiovascular: NL Sounds; No Murmurs; No JVD, RRR Abdominal: NL Sounds; No Tenderness; No Distention Extremities: - - RUE edema along lateral/posterior forearm, extending from elbow to finger joints. Improved flexion/extension of elbow, finger joint flexion still limited secondary to pain, PROM achieved Neurological: Alert and Oriented x 3, NL Muscle Strength and Tone Lines/Tubes/Other Access: Clean, Dry and Intact Peripheral IV Result Diagrams: 12/30/16 05:19 12/31/16 06:34 Diagnostic Imaging: Doppler RUE: No sonographic evidence of DVT RUE CT: extensive cellulitis, potential olecranon bursitis with calcified loose bodies. No compelling CT evidence for presence of a loculated soft tissue plane abscess collection. RUE MRI: findings most consistent with cellulitis and fascitis. No evidence for abscess. Small effusion within the elbow joint. XR of right hand, forearm, elbow: unremarkable R hand. No fx of right forearm present. Diffuse soft tissue swelling about the elbow, extending into the forearm; no fracture or foreign body of elbow. Assess/Plan/Problems-Billing Assessment: Mr. Carrillo is a 61 yo male with a PMH of HTN, HLD, DM, anxiety, and gout who presented to the ED on 12/29 with concern for dizziness, nausea, RUE edema and pain; patient previously on Bactrim prescribed by CC with no improvement. Patient also found to have JAJA. - Patient Problems (1) Cellulitis of right upper extremity Code(s): L03.113 - CELLULITIS OF RIGHT UPPER LIMB Comment: Improving, previously failed outpatient tx with Bactrim. Patient seen in consultation by Dr. Rodriguez, orthopedics, who saw no significant fluid collection in need of aspiration. Continue cefazolin and vancomycin. Appreciate ID consult. No sonographic evidence of DVT CT shows extensive cellulitis, potential olecranon bursitis with calcified loose bodies. No compelling CT evidence for presence of a loculated soft tissue plane abscess collection. MRI: findings most consistent with cellulitis and fascitis. No evidence for abscess. Small effusion within the elbow joint. Continue close monitoring of affected extremity. (2) Acute kidney injury Code(s): N17.9 - ACUTE KIDNEY FAILURE, UNSPECIFIED Comment: Suspect acute on chronic process Suspect secondary to dehydration and Bactrim Now improving Obtain records from [facility] to establish baseline, still pending (3) Diabetes Code(s): E11.9 - TYPE 2 DIABETES MELLITUS WITHOUT COMPLICATIONS Comment: HgbA1c 5.9 Continue FSBG with Lispro SSI Resume home metformin at discharge. (4) HTN (hypertension) Code(s): I10 - ESSENTIAL (PRIMARY) HYPERTENSION Comment: Mildly elevated BP, suspect some aspect of pain contributing. Continue home metoprolol, amlodipine. Pain management (5) HLD (hyperlipidemia) Code(s): E78.5 - HYPERLIPIDEMIA, UNSPECIFIED Comment: Obtain [facility] med list (still pending). Patient does not have documented hx of statin use. Continue heart healthy diet. (6) DVT prophylaxis Comment: SQ heparin Status and Disposition: Inpatient. Extended LOS for infection and need for IV abx.
[2016-12-31] MEDS: amLODIPine TAB* 5 MG PO SCH (09:20)
[2016-12-31] MEDS: Metoprolol Succinate XL TAB* 25 MG PO SCH (09:20)
[2016-12-31] MEDS: ceFAZolin VIAL(*) 1 GM in NS 0.9% 50 ML* 50 ML IVPB SCH ×3 (13:00→20:02)
--- NOTE | 2016-12-31 14:21 | PN ---
Progress Note - Progress Note SOAP: Subjective: DOS: 12/31/16 CC: arm infection HPI: 61 yo man with right arm and hand swelling a few days after phlebotomy. No other trauma he recalled. Right elbow and finger joints most painful and stiff. Improved motion in elbow and flexion and fingers, still diffusely swollen. No rash, fever, or diarrhea. Objective: [] Vital Signs Temp 36.5 C 12/31/16 07:35 Pulse 53 12/31/16 07:35 Resp 18 12/31/16 07:35 BP 143/64 12/31/16 07:35 Pulse Ox 98 12/31/16 07:35 Intake & Output 12/30/16 12/31/16 12/31/16 18:59 06:59 18:59 Intake Total 1700 1160 120 Output Total 2225 Balance 1700 -1065 120 Weight 220 lb 1.6 oz Intake: IV Fluids 35 NS (0.9%) 35 IVPB 325 ABX - CEFAZOLIN 65 ABX - VANCOMYCIN 260 Oral 1700 800 120 Output: Urine 2225 Other: Estimated Void Medium # Bowel Movements 0 Estimated Stool Amount Small # Voids 2 Gen:Awake, no distress HEENT:PERRL, MMM Neck:supple Heart:RRR no murmur Lungs:CTA BL Abd:+BS NTND soft Skin: no rash MSK: right elbow olecranon effusion, improved ROM with elbow flex/ext/pronation/ supination though mild snider, diffuse edema through fingers, with no muscle tenderness or crepitus. decr flexion/extension in MCP and PIP joints. wrist flexion and extension normal MRI: fasciitis and cellulitis in forearm Laboratory Results - last 24 hr 12/30/16 12/31/16 12/31/16 17:01 06:34 07:35 Sodium 134 Potassium 4.1 Chloride 105 Carbon Dioxide 21 L Anion Gap 8 BUN 36 H Creatinine 2.32 H Est GFR ( Amer) 37.1 Est GFR (Non-Af Amer) 28.9 BUN/Creatinine Ratio 15.5 Glucose 76 POC Glucose (mg/dL) 89 81 Calcium 8.5 L 12/31/16 11:37 Sodium Potassium Chloride Carbon Dioxide Anion Gap BUN Creatinine Est GFR ( Amer) Est GFR (Non-Af Amer) BUN/Creatinine Ratio Glucose POC Glucose (mg/dL) 188 H Calcium MRI right forearm; cellulitis and fasciitis, small elbow effusion Assessment: 1. Right arm infection; cellulitis and fasciitis; infectious, no evidence of necrotizing fasciitis as he is slowly improving 2. right elbow effusion with decreased but improving ROM so septic joint less likely 3. T2DM 4. gout Plan: 1. continue vancomycin and ceftriaxone, follow exam closely, assuming continued improvement will plan to change to PO abx treatment for home. If elbow getting worse will have IR aspirate. Discussed with Keren Padilla NP 35 minutes floor time >50% face to face counseling regarding next steps in antibiotic treatment, all questions answered.
[2016-12-31] MEDS: oxyCODONE/Acetamin 5/325 MG* TAB PO PRN (20:01)
[2017-01-01] MEDS: ceFAZolin VIAL(*) 1 GM in NS 0.9% 50 ML* 50 ML IVPB SCH ×3 (03:31→19:43)
[2017-01-01] MEDS: Vancomycin(*) 1,000 MG in NS 0.9% 250 ML* 250 ML IVPB SCH ×2 (04:13→18:31)
[2017-01-01] MEDS: Heparin VIAL(*) 5000 UNITS/ML VIAL (FIVE THOUSAND) SUBCUT SCH ×2 (06:04→14:12)
--- NOTE | 2017-01-01 07:45 | PN ---
Subjective Date of Service: 01/01/17 Interval History: Patient seen and examined at bedside. Denies fever/chills, CP, SOB, dizziness, n /v. Feels right hand is more swollen and painful today. Better ROM and less pain in elbow joint today. Patient has been trying to elevate extremity but often still dangles hand over edge of pillow. Family History: Unchanged from Admission Social History: Unchanged from Admission Past Medical History: Unchanged from Admission Objective Active Medications: Acetaminophen (Tylenol Tab*) 650 mg PO Q4H PRN PRN Reason: FEVER/PAIN Amlodipine Besylate (Norvasc Tab*) 10 mg PO DAILY [facility] Last Admin: 12/31/16 09:20 Dose: 10 mg Dextrose (D50w Syringe 50 Ml*) 12.5 gm IV PUSH .FOR FS < 60 - SS PRN PRN Reason: FS < 60 Heparin Sodium (Porcine) (Heparin Vial(*)) 5,000 units SUBCUT Q8HR [facility] Last Admin: 01/01/17 06:04 Dose: 5,000 units Vancomycin HCl 1,000 mg/ (Sodium Chloride) 250 mls @ 166.667 mls/hr IVPB Q12H [facility] Last Admin: 01/01/17 04:13 Dose: 166.667 mls/hr Cefazolin Sodium 1 gm/ Sodium (Chloride) 50 mls @ 200 mls/hr IVPB Q8H [facility] Last Admin: 01/01/17 03:31 Dose: 200 mls/hr Insulin Human Lispro (Humalog*) 0 units SUBCUT AC [facility] PRN Reason: Protocol Last Admin: 12/31/16 16:59 Dose: Not Given Metoprolol Succinate (Toprol Xl Tab*) 75 mg PO DAILY [facility] Last Admin: 12/31/16 09:20 Dose: 75 mg Ondansetron HCl (Zofran Inj*) 4 mg IV Q6H PRN PRN Reason: NAUSEA/VOMITING Oxycodone/Acetaminophen (Percocet 5/325 Tab*) 1 tab PO Q4H PRN PRN Reason: Pain Last Admin: 12/31/16 20:01 Dose: 1 tab Pharmacy Consult (Vancomycin Per Pharmacy*) 1 note FOLLOW UP . PRN PRN Reason: PER PROTOCOL Pharmacy Profile Note (Vancomycin Trough Check) 1 note FOLLOW UP 1700 ONE Stop: 01/01/17 17:01 Vital Signs 12/31/16 12/31/16 12/31/16 08:00 15:36 15:37 Temperature 98.0 F 98.0 F Pulse Rate 58 58 Respiratory 16 16 16 Rate Blood Pressure 151/74 151/74 (mmHg) O2 Sat by Pulse 98 98 Oximetry 12/31/16 12/31/16 12/31/16 19:52 20:00 20:01 Temperature 97.9 F Pulse Rate 61 Respiratory 16 19 19 Rate Blood Pressure 185/85 (mmHg) O2 Sat by Pulse 100 Oximetry 12/31/16 12/31/16 12/31/16 20:10 22:01 23:39 Temperature 97.7 F Pulse Rate 64 Respiratory 18 16 Rate Blood Pressure 164/78 136/54 (mmHg) O2 Sat by Pulse 95 Oximetry 01/01/17 03:56 Temperature 97.6 F Pulse Rate 62 Respiratory 16 Rate Blood Pressure 141/58 (mmHg) O2 Sat by Pulse 97 Oximetry Oxygen Devices in Use Now: None Appearance: Male patient, OOB to chair, NAD Eyes: PERRLA Ears/Nose/Mouth/Throat: Mucous Membranes Moist Respiratory: Symmetrical Chest Expansion and Respiratory Effort, Clear to Auscultation Cardiovascular: NL Sounds; No Murmurs; No JVD, RRR Abdominal: NL Sounds; No Tenderness; No Distention Extremities: - - RUE edema and erythema, improved, though right hand appears mildly more edematous today Neurological: Alert and Oriented x 3 Result Diagrams: 12/30/16 05:19 12/31/16 06:34 Diagnostic Imaging: Doppler RUE: No sonographic evidence of DVT RUE CT: extensive cellulitis, potential olecranon bursitis with calcified loose bodies. No compelling CT evidence for presence of a loculated soft tissue plane abscess collection. RUE MRI: findings most consistent with cellulitis and fascitis. No evidence for abscess. Small effusion within the elbow joint. XR of right hand, forearm, elbow: unremarkable R hand. No fx of right forearm present. Diffuse soft tissue swelling about the elbow, extending into the forearm; no fracture or foreign body of elbow. Assess/Plan/Problems-Billing Assessment: Mr. Carrillo is a 61 yo male with a PMH of HTN, HLD, DM, anxiety, and gout who presented to the ED on 12/29 with concern for dizziness, nausea, RUE edema and pain; patient previously on Bactrim prescribed by CC with no improvement. Patient also found to have JAJA. - Patient Problems (1) Cellulitis of right upper extremity Code(s): L03.113 - CELLULITIS OF RIGHT UPPER LIMB Comment: Slowly improving, previously failed outpatient tx with Bactrim. Patient seen in consultation by Dr. Rodriguez, orthopedics, who saw no significant fluid collection in need of aspiration. Continue cefazolin and vancomycin. Appreciate ID consult. No sonographic evidence of DVT CT shows extensive cellulitis, potential olecranon bursitis with calcified loose bodies. No compelling CT evidence for presence of a loculated soft tissue plane abscess collection. MRI: findings most consistent with cellulitis and fascitis. No evidence for abscess. Small effusion within the elbow joint. Continue close monitoring of affected extremity. (2) Acute kidney injury Code(s): N17.9 - ACUTE KIDNEY FAILURE, UNSPECIFIED Comment: Suspect acute on chronic process Suspect secondary to dehydration and Bactrim Now improving Obtain records from [facility] to establish baseline, still pending (3) Diabetes Code(s): E11.9 - TYPE 2 DIABETES MELLITUS WITHOUT COMPLICATIONS Comment: HgbA1c 5.9 Continue FSBG with Lispro SSI Resume home metformin at discharge. (4) HTN (hypertension) Code(s): I10 - ESSENTIAL (PRIMARY) HYPERTENSION Comment: Mildly elevated BP, suspect some aspect of pain contributing. Continue home metoprolol, amlodipine. Pain management (5) HLD (hyperlipidemia) Code(s): E78.5 - HYPERLIPIDEMIA, UNSPECIFIED Comment: Obtain [facility] med list (still pending). Patient does not have documented hx of statin use. Continue heart healthy diet. (6) DVT prophylaxis Comment: SQ heparin Status and Disposition: Inpatient. Extended LOS for infection and need for IV abx.
[2017-01-01] MEDS: Insulin LISPRO* 1 UNITS UNIT SUBCUT SCH ×3 (08:02→16:49)
[2017-01-01 08:53] LABS: Hematocrit 34 % (42-52); Hemoglobin 11.5 g/dl (14.0-18.0); Mean Corpuscular HGB Conc 34 g/dl (31-36); Mean Corpuscular Hemoglobin 28 pg (27-31); Mean Corpuscular Volume 82 fL (80-94); Mean Platelet Volume 8 um3 (7.4-10.4); Red Blood Count 4.19 10^6/ul (4.0-5.4); Red Cell Distribution Width 13 % (10.5-15); White Blood Count 8.2 10^3/ul (3.5-10.8)
[2017-01-01] MEDS: amLODIPine TAB* 5 MG PO SCH (08:59)
[2017-01-01] MEDS: oxyCODONE/Acetamin 5/325 MG* TAB PO PRN ×2 (09:00→19:44)
[2017-01-01] MEDS: Metoprolol Succinate XL TAB* 25 MG PO SCH (09:00)
[2017-01-01 09:09] LABS: BUN/Creatinine Ratio 15.5 (8-20); C Reactive Protein 38.71 mg/L (< 5.00); Calcium 8.9 mg/dL (8.6-10.3); EGFR African American 44.1 (>60); EGFR Non-African American 34.3 (>60); Potassium 4.7 mmol/L (3.5-5.0)
--- NOTE | 2017-01-01 09:53 | PN ---
Progress Note - Progress Note SOAP: Subjective: DOS: 01/01/17 CC: arm infection HPI: 61 yo man with right arm and hand swelling a few days after phlebotomy. No other trauma he recalled. Elbow, forearm and wrist are improving. Today fingers are more swollen and thumb and index finger hurt to move. The 3-5 fingers do not. No fever, rash, or diarrhea, eating well. Objective: [] Vital Signs Temp 36.4 C 01/01/17 07:42 Pulse 56 01/01/17 07:42 Resp 16 01/01/17 09:00 BP 151/76 01/01/17 07:42 Pulse Ox 98 01/01/17 07:42 Intake & Output 12/31/16 01/01/17 01/01/17 18:59 06:59 18:59 Intake Total 720 1526 Output Total 550 1300 Balance 170 226 Weight 220 lb Intake: IV Fluids 50 20 ABX - VANCOMYCIN 50 NS (0.9%) 20 IVPB 666 ABX - CEFAZOLIN 130 ABX - VANCOMYCIN 536 Oral 670 840 Output: Urine 550 1300 Other: Estimated Void Medium # Bowel Movements 1 Estimated Stool Amount Medium # Voids 1 Gen:Awake, no distress HEENT:PERRL, MMM Neck:supple Heart:RRR no murmur Lungs:CTA BL Abd:+BS NTND soft Skin: no rash MSK: right elbow olecranon effusion, improved ROM with elbow flex/ext/pronation/ supination, no wrist pain with ROM or palpation. 1st MCP and CMC joint are tender to palpation, no erythema or warmth, pain with ROM. Laboratory Results - last 24 hr 12/31/16 12/31/16 12/31/16 11:37 16:52 20:01 WBC RBC Hgb Hct MCV MCH MCHC RDW Plt Count MPV Neut % (Auto) Lymph % (Auto) [place] % (Auto) Eos % (Auto) Baso % (Auto) Absolute Neuts (auto) Absolute Lymphs (auto) Absolute Monos (auto) Absolute Eos (auto) Absolute Basos (auto) Absolute Nucleated RBC Nucleated RBC % Sodium Potassium Chloride Carbon Dioxide Anion Gap BUN Creatinine Est GFR ( Amer) Est GFR (Non-Af Amer) BUN/Creatinine Ratio Glucose POC Glucose (mg/dL) 188 H 95 143 H Calcium C-Reactive Protein 01/01/17 01/01/17 01/01/17 08:00 08:41 08:41 WBC 8.2 RBC 4.19 Hgb 11.5 L Hct 34 L MCV 82 MCH 28 MCHC 34 RDW 13 Plt Count 323 MPV 8 Neut % (Auto) 65.5 Lymph % (Auto) 20.1 L [place] % (Auto) 9.4 H Eos % (Auto) 3.6 Baso % (Auto) 1.4 Absolute Neuts (auto) 5.4 Absolute Lymphs (auto) 1.7 Absolute Monos (auto) 0.8 Absolute Eos (auto) 0.3 Absolute Basos (auto) 0.1 Absolute Nucleated RBC 0.01 Nucleated RBC % 0.1 Sodium 132 L Potassium 4.7 Chloride 103 Carbon Dioxide 21 L Anion Gap 8 BUN 31 H Creatinine 2.00 H Est GFR ( Amer) 44.1 Est GFR (Non-Af Amer) 34.3 BUN/Creatinine Ratio 15.5 Glucose 87 POC Glucose (mg/dL) 93 Calcium 8.9 C-Reactive Protein 38.71 H Assessment: 1. Right arm infection; fasciitis and cellulitis; overall improving, remaining issue is the CMC and MCP joint tenderness, may be due to dependent edema 2. T2DM 3. gout Plan: 1. continue vancomycin and ceftriaxone, schedule tyelnol and add ice pack for fingers; focus on elevating hand Discussed with Keren Padilla NP 35 minutes floor time >50% face to face counseling regarding evaluation and treatment of his hand pain, all questions answered.
[2017-01-01] MEDS ORDERED: Cyclobenzaprine TAB* 10 MG PO PRN (13:15)
--- NOTE | 2017-01-01 13:39 | ED ---
I, Oh,Sokelly, scribed for Chencho Armstrong MD on 12/29/16 at 1022 . Upper Extremity Pain - HPI Summary HPI Summary: This 61 y/o male presents to ED for RUE pain and swelling since yesterday. Positive nausea, lightheaded dizziness, mild exertional SOB. Negative CP, BLACKWOOD, or neck pain. Pt was evaluated 4 days ago and had blood drawn from RUE. Pt went to [facility] 3 days ago for similar RUE swelling and pain, and pt was evaluated for cellulitis. PMHx includes HTN, DM, gout, and anxiety/depression that is medically controlled. - History of Current Complaint Chief Complaint: EDDizziness Stated Complaint: DIZZY/NAUSEA Time Seen by Provider: 12/29/16 10:10 Hx Obtained From: Patient, Medical Records Mechanism Of Injury: Unknown Onset/Duration: Started Days Ago, Still Present Timing: Constant Pain Location: Forearm - RUE Character: Dull Aggravating Factor(s): Nothing Alleviating Factor(s): Nothing Associated Signs & Symptoms: Positive: SOB - exertional, Nausea, Other - lightheaded dizziness. Negative: Chest Pain, Vomiting - Allergies/Home Medications Allergies/Adverse Reactions: Allergies Allergy/AdvReac Type Severity Reaction Status Date / Time BP med Allergy Rash Uncoded 12/26/16 21:08 Home Medications: Home Medications Aspirin 81 MG TAB 1 tab PO DAILY 12/31/16 [History Confirmed 12/31/16] Atorvastatin* [Lipitor*] 80 mg PO DAILY 01/01/17 [History Confirmed 01/01/17] Hydrochlorothiazide TAB* [Hydrodiuril TAB*] 25 mg PO DAILY 01/01/17 [History Confirmed 01/01/17] PMH/Surg Hx/FS Hx/Imm Hx Endocrine/Hematology History: Reports: Hx Diabetes - TYPE 2 / ON ORAL MEDS Denies: Hx Thyroid Disease Cardiovascular History: Reports: Hx Angina, Hx Hypercholesterolemia, Hx Hypertension, Other Cardiovascular Problems/Disorders - GOUT Denies: Hx Coronary Artery Disease, Hx Myocardial Infarction, Hx Pacemaker/ ICD, Hx Valvular Heart Disease Respiratory History: Denies: Hx Asthma, Hx Chronic Obstructive Pulmonary Disease (COPD) GI History: Denies: Hx Ulcer Musculoskeletal History: Reports: Hx Gout, Other Musculoskeletal History - HIP PAIN Denies: Hx Arthritis, Hx Osteoporosis, Hx Scoliosis Sensory History: Reports: Hx Contacts or Glasses Denies: Hx Hearing Aid Opthamlomology History: Reports: Hx Contacts or Glasses Neurological History: Reports: Hx Headaches Denies: Other Neuro Impairments/Disorders Psychiatric History: Reports: Hx Anxiety, Hx Panic Disorder - Surgical History Surgery Procedure, Year, and Place: POLYPS REMOVED INTESTINE. APPENDECTOMY. KNEE SURGERY 1998 Hx Anesthesia Reactions: No Infectious Disease History: Denies: Hx Clostridium Difficile, Hx Hepatitis, Hx Human Immunodeficiency Virus (HIV), Hx of Known/Suspected MRSA, Hx Shingles, Hx Tuberculosis, Hx Known/ Suspected VRE, Hx Known/Suspected VRSA, History Other Infectious Disease, Traveled Outside the [place] in Last 30 Days - Family History Known Family History: Positive: Cardiac Disease, Other - father - asthma - Social History Alcohol Use: None Hx Substance Use: No Substance Use Type: Reports: None Hx Tobacco Use: No Smoking Status (MU): Never Smoked Tobacco Review of Systems Negative: Fever Negative: Chest Pain Positive: Shortness Of Breath - exertional Positive: Nausea. Negative: Vomiting Musculoskeletal: Other - Negative neck pain Positive: Edema - RUE, Other - RUE pain All Other Systems Reviewed And Are Negative: Yes Physical Exam - Summary Physical Exam Summary: VITAL SIGNS: Reviewed. GENERAL: Patient is a well-developed and nourished MALE who is lying comfortable in the stretcher. Patient is not in any acute respiratory distress. HEAD AND FACE: No signs of trauma. No ecchymosis, hematomas or skull depressions. No sinus tenderness. EYES: PERRLA, EOMI x 2, No injected conjunctiva, no nystagmus. EARS: Hearing grossly intact. Ear canals and tympanic membranes are within normal limits. MOUTH: Oropharynx within normal limits. NECK: Supple, trachea is midline, no adenopathy, no JVD, no carotid bruit, no c- spine tenderness, neck with full ROM. CHEST: Symmetric, no tenderness at palpation LUNGS: Clear to auscultation bilaterally. No wheezing or crackles. CVS: Regular rate and rhythm, S1 and S2 present, no murmurs or gallops appreciated. ABDOMEN: Soft, non-tender. No signs of distention. No rebound no guarding, and no masses palpated. Bowel sounds are normal. EXTREMITIES: FROM in all major joints, no edema, no cyanosis or clubbing. RUE: Good cap refills. 2+ radial pulse. Decreased sensation on palm. Swelling from elbow to hand. FROM and intact motor strength. NEURO: Alert and oriented x 3. No acute neurological deficits. Speech is normal and follows commands. SKIN: Dry and warm Triage Information Reviewed: Yes Vital Signs On Initial Exam: Initial Vitals Temp Pulse Resp BP Pulse Ox 97.0 F 57 16 128/62 97 12/29/16 09:48 12/29/16 09:48 12/29/16 09:48 12/29/16 09:48 12/29/16 09:48 Vital Signs Reviewed: Yes Diagnostics - Vital Signs Vital Signs Temp Pulse Resp BP Pulse Ox 12/29/16 09:48 97.0 F 57 16 128/62 97 - Laboratory Lab Results: Lab Results 12/29/16 12/29/16 12/29/16 Range/Units 11:15 11:15 11:15 WBC 9.0 (3.5-10.8) 10^3/ul RBC 4.05 (4.0-5.4) 10^6/ul Hgb 11.2 L (14.0-18.0) g/dl Hct 33 L (42-52) % MCV 82 (80-94) fL MCH 28 (27-31) pg MCHC 34 (31-36) g/dl RDW 13 (10.5-15) % Plt Count 242 (150-450) 10^3/ul MPV 8 (7.4-10.4) um3 Neut % (Auto) 75.0 (38-83) % Lymph % (Auto) 11.9 L (25-47) % [place] % (Auto) 10.4 H (1-9) % Eos % (Auto) 1.7 (0-6) % Baso % (Auto) 1.0 (0-2) % Absolute Neuts (auto) 6.8 (1.5-7.7) 10^3/ul Absolute Lymphs (auto) 1.1 (1.0-4.8) 10^3/ul Absolute Monos (auto) 0.9 H (0-0.8) 10^3/ul Absolute Eos (auto) 0.2 (0-0.6) 10^3/ul Absolute Basos (auto) 0.1 (0-0.2) 10^3/ul Absolute Nucleated RBC 0.01 10^3/ul Nucleated RBC % 0.1 Sodium 132 L (133-145) mmol/L Potassium 4.3 (3.5-5.0) mmol/L Chloride 100 L (101-111) mmol/L Carbon Dioxide 22 (22-32) mmol/L Anion Gap 10 (2-11) mmol/L BUN 46 H (6-24) mg/dL Creatinine 3.26 H (0.67-1.17) mg/dL Est GFR ( Amer) 25.1 (>60) Est GFR (Non-Af Amer) 19.5 (>60) BUN/Creatinine Ratio 14.1 (8-20) Glucose 104 H (70-100) mg/dL POC Glucose (mg/dL) (74-106) mg/dL Hemoglobin A1c (Less than 6.0) % Lactic Acid 1.1 (0.5-2.0) mmol/L Uric Acid (4.4-7.6) mg/dL Calcium 8.5 L (8.6-10.3) mg/dL Total Bilirubin 0.30 (0.2-1.0) mg/dL AST 11 L (13-39) U/L ALT 9 (7-52) U/L Alkaline Phosphatase 52 (34-104) U/L Total Creatine Kinase (10-223) U/L C-Reactive Protein 98.19 H (< 5.00) mg/L Total Protein 7.4 (6.4-8.9) g/dL Albumin 3.4 (3.2-5.2) g/dL Globulin 4.0 (2-4) g/dL Albumin/Globulin Ratio 0.9 L (1-3) 12/29/16 12/29/16 12/30/16 Range/Units 11:15 17:18 05:19 WBC 7.8 (3.5-10.8) 10^3/ul RBC 3.98 L (4.0-5.4) 10^6/ul Hgb 11.2 L (14.0-18.0) g/dl Hct 33 L (42-52) % MCV 82 (80-94) fL MCH 28 (27-31) pg MCHC 34 (31-36) g/dl RDW 13 (10.5-15) % Plt Count 244 (150-450) 10^3/ul MPV 9 (7.4-10.4) um3 Neut % (Auto) 70.8 (38-83) % Lymph % (Auto) 17.0 L (25-47) % [place] % (Auto) 9.4 H (1-9) % Eos % (Auto) 1.8 (0-6) % Baso % (Auto) 1.0 (0-2) % Absolute Neuts (auto) 5.5 (1.5-7.7) 10^3/ul Absolute Lymphs (auto) 1.3 (1.0-4.8) 10^3/ul Absolute Monos (auto) 0.7 (0-0.8) 10^3/ul Absolute Eos (auto) 0.1 (0-0.6) 10^3/ul Absolute Basos (auto) 0.1 (0-0.2) 10^3/ul Absolute Nucleated RBC 0 10^3/ul Nucleated RBC % 0 Sodium (133-145) mmol/L Potassium (3.5-5.0) mmol/L Chloride (101-111) mmol/L Carbon Dioxide (22-32) mmol/L Anion Gap (2-11) mmol/L BUN (6-24) mg/dL Creatinine (0.67-1.17) mg/dL Est GFR ( Amer) (>60) Est GFR (Non-Af Amer) (>60) BUN/Creatinine Ratio (8-20) Glucose (70-100) mg/dL POC Glucose (mg/dL) 92 (74-106) mg/dL Hemoglobin A1c 5.9 (Less than 6.0) % Lactic Acid (0.5-2.0) mmol/L Uric Acid (4.4-7.6) mg/dL Calcium (8.6-10.3) mg/dL Total Bilirubin (0.2-1.0) mg/dL AST (13-39) U/L ALT (7-52) U/L Alkaline Phosphatase (34-104) U/L Total Creatine Kinase (10-223) U/L C-Reactive Protein (< 5.00) mg/L Total Protein (6.4-8.9) g/dL Albumin (3.2-5.2) g/dL Globulin (2-4) g/dL Albumin/Globulin Ratio (1-3) 12/30/16 12/30/16 Range/Units 05:19 07:51 WBC (3.5-10.8) 10^3/ul RBC (4.0-5.4) 10^6/ul Hgb (14.0-18.0) g/dl Hct (42-52) % MCV (80-94) fL MCH (27-31) pg MCHC (31-36) g/dl RDW (10.5-15) % Plt Count (150-450) 10^3/ul MPV (7.4-10.4) um3 Neut % (Auto) (38-83) % Lymph % (Auto) (25-47) % [place] % (Auto) (1-9) % Eos % (Auto) (0-6) % Baso % (Auto) (0-2) % Absolute Neuts (auto) (1.5-7.7) 10^3/ul Absolute Lymphs (auto) (1.0-4.8) 10^3/ul Absolute Monos (auto) (0-0.8) 10^3/ul Absolute Eos (auto) (0-0.6) 10^3/ul Absolute Basos (auto) (0-0.2) 10^3/ul Absolute Nucleated RBC 10^3/ul Nucleated RBC % Sodium 132 L (133-145) mmol/L Potassium 4.0 (3.5-5.0) mmol/L Chloride 105 (101-111) mmol/L Carbon Dioxide 22 (22-32) mmol/L Anion Gap 5 (2-11) mmol/L BUN 43 H (6-24) mg/dL Creatinine 2.82 H (0.67-1.17) mg/dL Est GFR ( Amer) 29.6 (>60) Est GFR (Non-Af Amer) 23.0 (>60) BUN/Creatinine Ratio 15.2 (8-20) Glucose 86 (70-100) mg/dL POC Glucose (mg/dL) 117 H (74-106) mg/dL Hemoglobin A1c (Less than 6.0) % Lactic Acid (0.5-2.0) mmol/L Uric Acid 9.9 H (4.4-7.6) mg/dL Calcium 8.4 L (8.6-10.3) mg/dL Total Bilirubin (0.2-1.0) mg/dL AST (13-39) U/L ALT (7-52) U/L Alkaline Phosphatase (34-104) U/L Total Creatine Kinase 48 (10-223) U/L C-Reactive Protein 69.13 H (< 5.00) mg/L Total Protein (6.4-8.9) g/dL Albumin (3.2-5.2) g/dL Globulin (2-4) g/dL Albumin/Globulin Ratio (1-3) Result Diagrams: 01/01/17 08:41 01/01/17 08:41 Lab Statement: Any lab studies that have been ordered have been reviewed, and results considered in the medical decision making process. - Additional Comments Diagnostic Additional Comments: Venous Doppler Study -- no sonographic evidence of DVT. Re-Evaluation - Re-Evaluation First Eval Re-Evaluation Time: 13:08 Comment: MD in room to update pt on US venous doppler and plan of care. Course/Dx - Course Assessment/Plan: This 61 y/o male presents to ED for RUE pain and swelling since yesterday. Positive nausea, lightheaded dizziness, mild exertional SOB. Negative CP, BLACKWOOD, or neck pain. Pt was evaluated 4 days ago and had blood drawn from RUE. Pt went to [facility] 3 days ago for similar RUE swelling and pain, and pt was evaluated for cellulitis. PMHx includes HTN, DM, gout, and anxiety/ depression that is medically controlled. Blood work is wnl except for mild anemia, sodium of 132, acute on chronic renal failure, and CRP of 98.18. US is negative for sonographic evidence of DVT. Therefore, I believe his symptoms are secondary to Cellulitis s/p IV access not responding to outpatient therapy. Pt was given rocephin IV. Physical exam and findings were discussed with Dr. Thurman, who accepts pt's admission. Pt is hemodynamically stable and A&Ox3. - Diagnoses Differential Diagnosis/HQI/PQRI: Positive: Bursitis, Other - DVT, Cellulitis, Abscess Provider Diagnoses: Cellulitis of the UE - Physician Notifications Discussed Care of Patient With: Miller Thurman Time Discussed With Above Provider: 13:10 Discharge - Discharge Plan Condition: Improved Disposition: ADMITTED TO [facility] The documentation as recorded by the scribeUrban Soohyun accurately reflects the service I personally performed and the decisions made by me, Chencho Armstrong MD.
[2017-01-01] MEDS ORDERED: Vancomycin Trough Check NOTE FOLLOW UP ONE (17:00)
[2017-01-02] MEDS: Heparin VIAL(*) 5000 UNITS/ML VIAL (FIVE THOUSAND) SUBCUT SCH ×4 (02:11→22:52)
[2017-01-02] MEDS: ceFAZolin VIAL(*) 1 GM in NS 0.9% 50 ML* 50 ML IVPB SCH ×3 (03:42→20:21)
[2017-01-02] MEDS: Vancomycin(*) 750 MG in NS 0.9% 250 ML* 250 ML IVPB SCH ×2 (06:14→17:35)
--- NOTE | 2017-01-02 07:53 | PN ---
Subjective Date of Service: 01/02/17 Interval History: Patient seen and examined at bedside. He is sitting in his chair with his hand and wrist dangling over the armrest. He reports that he thinks his wrist is getting more swollen but can't really tell. He denies any increased pain to the wrist or to the upper extremity. We did discuss that this may likely be dependent edema, as his arm appears swollen in different places over the course of the day. Patient encouraged to keep his RUE consistently elevated. He agrees this "makes sense" as he has noticed that the swelling has moved as well. He does report less swelling to the hand today and less redness. He can now fully extend and flex the elbow and has mildly improved ROM to finger joints. Denies fever/chills, CP, SOB or other concerns. Family History: Unchanged from Admission Social History: Unchanged from Admission Past Medical History: Unchanged from Admission Objective Active Medications: Acetaminophen (Tylenol Tab*) 650 mg PO Q4H PRN PRN Reason: FEVER/PAIN Amlodipine Besylate (Norvasc Tab*) 10 mg PO DAILY [facility] Aspirin (Aspirin Ec Low Dose*) 81 mg PO DAILY [facility] Atorvastatin Calcium (Lipitor*) 80 mg PO DAILY [facility] Cyclobenzaprine HCl (Flexeril Tab*) 10 mg PO BID PRN PRN Reason: SPASMS Dextrose (D50w Syringe 50 Ml*) 12.5 gm IV PUSH .FOR FS < 60 - SS PRN PRN Reason: FS < 60 Heparin Sodium (Porcine) (Heparin Vial(*)) 5,000 units SUBCUT Q8HR [facility] Last Admin: 01/02/17 04:43 Dose: 5,000 units Cefazolin Sodium 1 gm/ Sodium (Chloride) 50 mls @ 200 mls/hr IVPB Q8H [facility] Last Admin: 01/02/17 03:42 Dose: 200 mls/hr Vancomycin HCl 750 mg/ Sodium (Chloride) 250 mls @ 166.667 mls/hr IVPB Q12H [facility] Last Admin: 01/02/17 06:14 Dose: 166.667 mls/hr Insulin Human Lispro (Humalog*) 0 units SUBCUT AC [facility] PRN Reason: Protocol Last Admin: 01/01/17 16:49 Dose: Not Given Metoprolol Succinate (Toprol Xl Tab*) 75 mg PO DAILY [facility] Last Admin: 01/01/17 09:00 Dose: 75 mg Ondansetron HCl (Zofran Inj*) 4 mg IV Q6H PRN PRN Reason: NAUSEA/VOMITING Oxycodone/Acetaminophen (Percocet 5/325 Tab*) 1 tab PO Q4H PRN PRN Reason: Pain Last Admin: 01/01/17 19:44 Dose: 1 tab Pharmacy Consult (Vancomycin Per Pharmacy*) 1 note FOLLOW UP . PRN PRN Reason: PER PROTOCOL Pharmacy Profile Note (Vancomycin Trough Check) 1 note FOLLOW UP 0530 ONE Stop: 01/04/17 05:31 Vital Signs 01/01/17 01/01/17 01/01/17 08:00 09:00 11:00 Temperature Pulse Rate Respiratory 16 16 14 Rate Blood Pressure (mmHg) O2 Sat by Pulse Oximetry 01/01/17 01/01/17 01/01/17 15:41 19:44 20:00 Temperature 97.5 F Pulse Rate 56 Respiratory 16 14 12 Rate Blood Pressure 147/67 (mmHg) O2 Sat by Pulse 99 Oximetry 01/01/17 01/01/17 01/02/17 21:44 23:21 03:23 Temperature 98.0 F 98.2 F Pulse Rate 65 57 Respiratory 12 15 15 Rate Blood Pressure 160/65 142/57 (mmHg) O2 Sat by Pulse 99 97 Oximetry 01/02/17 07:29 Temperature 97.7 F Pulse Rate 57 Respiratory 18 Rate Blood Pressure 150/66 (mmHg) O2 Sat by Pulse 99 Oximetry Oxygen Devices in Use Now: None Appearance: Male patient, OOB to chair, NAD Eyes: PERRLA Ears/Nose/Mouth/Throat: Mucous Membranes Moist Neck: NL Appearance and Movements; NL JVP Respiratory: Symmetrical Chest Expansion and Respiratory Effort, Clear to Auscultation Cardiovascular: NL Sounds; No Murmurs; No JVD, RRR Abdominal: NL Sounds; No Tenderness; No Distention Extremities: - - RUE edema, improved, mild erythema over dorsal aspect of right hand Neurological: Alert and Oriented x 3 Lines/Tubes/Other Access: Clean, Dry and Intact Peripheral IV Result Diagrams: 01/01/17 08:41 01/01/17 08:41 Additional Lab and Data: Lab Results 12/29/16 12/29/16 12/29/16 Range/Units 11:15 11:15 11:15 WBC 9.0 (3.5-10.8) 10^3/ul RBC 4.05 (4.0-5.4) 10^6/ul Hgb 11.2 L (14.0-18.0) g/dl Hct 33 L (42-52) % MCV 82 (80-94) fL MCH 28 (27-31) pg MCHC 34 (31-36) g/dl RDW 13 (10.5-15) % Plt Count 242 (150-450) 10^3/ul MPV 8 (7.4-10.4) um3 Neut % (Auto) 75.0 (38-83) % Lymph % (Auto) 11.9 L (25-47) % [place] % (Auto) 10.4 H (1-9) % Eos % (Auto) 1.7 (0-6) % Baso % (Auto) 1.0 (0-2) % Absolute Neuts (auto) 6.8 (1.5-7.7) 10^3/ul Absolute Lymphs (auto) 1.1 (1.0-4.8) 10^3/ul Absolute Monos (auto) 0.9 H (0-0.8) 10^3/ul Absolute Eos (auto) 0.2 (0-0.6) 10^3/ul Absolute Basos (auto) 0.1 (0-0.2) 10^3/ul Absolute Nucleated RBC 0.01 10^3/ul Nucleated RBC % 0.1 Sodium 132 L (133-145) mmol/L Potassium 4.3 (3.5-5.0) mmol/L Chloride 100 L (101-111) mmol/L Carbon Dioxide 22 (22-32) mmol/L Anion Gap 10 (2-11) mmol/L BUN 46 H (6-24) mg/dL Creatinine 3.26 H (0.67-1.17) mg/dL Est GFR ( Amer) 25.1 (>60) Est GFR (Non-Af Amer) 19.5 (>60) BUN/Creatinine Ratio 14.1 (8-20) Glucose 104 H (70-100) mg/dL POC Glucose (mg/dL) (74-106) mg/dL Hemoglobin A1c (Less than 6.0) % Lactic Acid 1.1 (0.5-2.0) mmol/L Uric Acid (4.4-7.6) mg/dL Calcium 8.5 L (8.6-10.3) mg/dL Total Bilirubin 0.30 (0.2-1.0) mg/dL AST 11 L (13-39) U/L ALT 9 (7-52) U/L Alkaline Phosphatase 52 (34-104) U/L Total Creatine Kinase (10-223) U/L C-Reactive Protein 98.19 H (< 5.00) mg/L Total Protein 7.4 (6.4-8.9) g/dL Albumin 3.4 (3.2-5.2) g/dL Globulin 4.0 (2-4) g/dL Albumin/Globulin Ratio 0.9 L (1-3) 12/29/16 12/29/16 12/30/16 Range/Units 11:15 17:18 05:19 WBC 7.8 (3.5-10.8) 10^3/ul RBC 3.98 L (4.0-5.4) 10^6/ul Hgb 11.2 L (14.0-18.0) g/dl Hct 33 L (42-52) % MCV 82 (80-94) fL MCH 28 (27-31) pg MCHC 34 (31-36) g/dl RDW 13 (10.5-15) % Plt Count 244 (150-450) 10^3/ul MPV 9 (7.4-10.4) um3 Neut % (Auto) 70.8 (38-83) % Lymph % (Auto) 17.0 L (25-47) % [place] % (Auto) 9.4 H (1-9) % Eos % (Auto) 1.8 (0-6) % Baso % (Auto) 1.0 (0-2) % Absolute Neuts (auto) 5.5 (1.5-7.7) 10^3/ul Absolute Lymphs (auto) 1.3 (1.0-4.8) 10^3/ul Absolute Monos (auto) 0.7 (0-0.8) 10^3/ul Absolute Eos (auto) 0.1 (0-0.6) 10^3/ul Absolute Basos (auto) 0.1 (0-0.2) 10^3/ul Absolute Nucleated RBC 0 10^3/ul Nucleated RBC % 0 Sodium (133-145) mmol/L Potassium (3.5-5.0) mmol/L Chloride (101-111) mmol/L Carbon Dioxide (22-32) mmol/L Anion Gap (2-11) mmol/L BUN (6-24) mg/dL Creatinine (0.67-1.17) mg/dL Est GFR ( Amer) (>60) Est GFR (Non-Af Amer) (>60) BUN/Creatinine Ratio (8-20) Glucose (70-100) mg/dL POC Glucose (mg/dL) 92 (74-106) mg/dL Hemoglobin A1c 5.9 (Less than 6.0) % Lactic Acid (0.5-2.0) mmol/L Uric Acid (4.4-7.6) mg/dL Calcium (8.6-10.3) mg/dL Total Bilirubin (0.2-1.0) mg/dL AST (13-39) U/L ALT (7-52) U/L Alkaline Phosphatase (34-104) U/L Total Creatine Kinase (10-223) U/L C-Reactive Protein (< 5.00) mg/L Total Protein (6.4-8.9) g/dL Albumin (3.2-5.2) g/dL Globulin (2-4) g/dL Albumin/Globulin Ratio (1-3) 12/30/16 12/30/16 Range/Units 05:19 07:51 WBC (3.5-10.8) 10^3/ul RBC (4.0-5.4) 10^6/ul Hgb (14.0-18.0) g/dl Hct (42-52) % MCV (80-94) fL MCH (27-31) pg MCHC (31-36) g/dl RDW (10.5-15) % Plt Count (150-450) 10^3/ul MPV (7.4-10.4) um3 Neut % (Auto) (38-83) % Lymph % (Auto) (25-47) % [place] % (Auto) (1-9) % Eos % (Auto) (0-6) % Baso % (Auto) (0-2) % Absolute Neuts (auto) (1.5-7.7) 10^3/ul Absolute Lymphs (auto) (1.0-4.8) 10^3/ul Absolute Monos (auto) (0-0.8) 10^3/ul Absolute Eos (auto) (0-0.6) 10^3/ul Absolute Basos (auto) (0-0.2) 10^3/ul Absolute Nucleated RBC 10^3/ul Nucleated RBC % Sodium 132 L (133-145) mmol/L Potassium 4.0 (3.5-5.0) mmol/L Chloride 105 (101-111) mmol/L Carbon Dioxide 22 (22-32) mmol/L Anion Gap 5 (2-11) mmol/L BUN 43 H (6-24) mg/dL Creatinine 2.82 H (0.67-1.17) mg/dL Est GFR ( Amer) 29.6 (>60) Est GFR (Non-Af Amer) 23.0 (>60) BUN/Creatinine Ratio 15.2 (8-20) Glucose 86 (70-100) mg/dL POC Glucose (mg/dL) 117 H (74-106) mg/dL Hemoglobin A1c (Less than 6.0) % Lactic Acid (0.5-2.0) mmol/L Uric Acid 9.9 H (4.4-7.6) mg/dL Calcium 8.4 L (8.6-10.3) mg/dL Total Bilirubin (0.2-1.0) mg/dL AST (13-39) U/L ALT (7-52) U/L Alkaline Phosphatase (34-104) U/L Total Creatine Kinase 48 (10-223) U/L C-Reactive Protein 69.13 H (< 5.00) mg/L Total Protein (6.4-8.9) g/dL Albumin (3.2-5.2) g/dL Globulin (2-4) g/dL Albumin/Globulin Ratio (1-3) Diagnostic Imaging: Doppler RUE: No sonographic evidence of DVT RUE CT: extensive cellulitis, potential olecranon bursitis with calcified loose bodies. No compelling CT evidence for presence of a loculated soft tissue plane abscess collection. RUE MRI: findings most consistent with cellulitis and fascitis. No evidence for abscess. Small effusion within the elbow joint. XR of right hand, forearm, elbow: unremarkable R hand. No fx of right forearm present. Diffuse soft tissue swelling about the elbow, extending into the forearm; no fracture or foreign body of elbow. Assess/Plan/Problems-Billing Assessment: Mr. Carrillo is a 61 yo male with a PMH of HTN, HLD, DM, anxiety, and gout who presented to the ED on 12/29 with concern for dizziness, nausea, RUE edema and pain; patient previously on Bactrim prescribed by [facility] with no improvement. Patient also found to have JAJA. - Patient Problems (1) Cellulitis of right upper extremity Code(s): L03.113 - CELLULITIS OF RIGHT UPPER LIMB Comment: Slowly improving, previously failed outpatient tx with Bactrim. Patient seen in consultation by Dr. Rodriguez, orthopedics, who saw no significant fluid collection in need of aspiration. Continue cefazolin and vancomycin. Encourage extremity elevation and ice packs to hand/ Appreciate ID consult. No sonographic evidence of DVT CT shows extensive cellulitis, potential olecranon bursitis with calcified loose bodies. No compelling CT evidence for presence of a loculated soft tissue plane abscess collection. MRI: findings most consistent with cellulitis and fascitis. No evidence for abscess. Small effusion within the elbow joint. Continue close monitoring of affected extremity. (2) Acute kidney injury Code(s): N17.9 - ACUTE KIDNEY FAILURE, UNSPECIFIED Comment: Suspect acute on chronic process Suspect secondary to dehydration and Bactrim Now improving [facility] show previous creatinine 1.8 (3) Diabetes Code(s): E11.9 - TYPE 2 DIABETES MELLITUS WITHOUT COMPLICATIONS Comment: HgbA1c 5.9 Continue FSBG with Lispro SSI Resume home metformin at discharge. (4) HTN (hypertension) Code(s): I10 - ESSENTIAL (PRIMARY) HYPERTENSION Comment: Worsening BP control trend over the course of the day and overnight. HR averages in 60s with occasional dips in 50s. Will try BID dosing of metoprolol for better BP control. Continue amlodipine. Pain management (5) HLD (hyperlipidemia) Code(s): E78.5 - HYPERLIPIDEMIA, UNSPECIFIED Comment: Continue atorvastatin. (6) DVT prophylaxis Comment: SQ heparin Status and Disposition: Inpatient. Extended LOS for infection and need for IV abx.
[2017-01-02] MEDS: Insulin LISPRO* 1 UNITS UNIT SUBCUT SCH ×3 (07:58→16:53)
[2017-01-02] MEDS: Metoprolol Succinate XL TAB* 25 MG PO SCH (08:06)
[2017-01-02] MEDS: Aspirin EC Low Dose* 81 MG TAB.EC PO SCH (08:06)
[2017-01-02] MEDS: amLODIPine TAB* 5 MG PO SCH (08:06)
[2017-01-02] MEDS: Atorvastatin* 80 MG TAB PO SCH (08:06)
[2017-01-02] MEDS: oxyCODONE/Acetamin 5/325 MG* TAB PO PRN ×2 (08:07→20:20)
[2017-01-02] MEDS ORDERED: Metoprolol Succinate XL TAB* 50 MG PO SCH (09:00)
--- NOTE | 2017-01-02 10:24 | PN ---
Progress Note - Progress Note SOAP: Subjective: DOS: 01/02/17 CC: arm infection HPI: 61 yo man with right arm and hand swelling a few days after phlebotomy. No other trauma he recalled. Elbow ROM nearly back to normal, wrist normal, moving all fingers more. Slept well then woke up with 1st MCP pain, resolved with oxycodone. No fever, rash, or diarrhea. Objective: [] Vital Signs Temp 36.5 C 01/02/17 07:29 Pulse 57 01/02/17 07:29 Resp 16 01/02/17 09:48 BP 150/66 01/02/17 07:29 Pulse Ox 99 01/02/17 07:29 Intake & Output 01/01/17 01/02/17 01/02/17 18:59 06:59 18:59 Intake Total 2245 964 Output Total 200 1000 Balance 2044 Weight 223 lb 6.4 oz Intake: IV Fluids 30 29 NS (0.9%) 30 29 IVPB 55 135 ABX - CEFAZOLIN 55 135 Oral 2160 800 Output: Urine 200 1000 Other: # Bowel Movements 1 # Voids 4 Gen:Awake, no distress HEENT:PERRL, MMM Neck:supple Heart:RRR no murmur Lungs:CTA BL Abd:+BS NTND soft Skin: no rash MSK: right elbow olecranon effusion, improved ROM with elbow flex/ext/pronation/ supination, no wrist pain with ROM or palpation. Dorsal hand edema. 1st MCP tender to palpation, no erythema or warmth, no pain with ROM. Laboratory Results - last 24 hr 01/01/17 01/01/17 01/01/17 12:07 16:42 16:48 POC Glucose (mg/dL) 108 H 114 H Vancomycin Trough 21.4 01/02/17 07:47 POC Glucose (mg/dL) 92 Vancomycin Trough Assessment: 1. Right arm infection; fasciitis and cellulitis; overall improving, remaining issue is MCP joint tenderness, which is also improved 2. T2DM 3. gout Plan: 1. continue vancomycin goal tr 15-20 and ceftriaxone, schedule tylenol and add ice pack for fingers; focus on elevating hand, hand exercise discussed Discussed with Keren Padilla NP 35 minutes floor time >50% face to face counseling regarding evaluation and treatment of hand infection which is slowly improving. All questions answered.
[2017-01-02] MEDS ORDERED: Metoprolol Succinate XL TAB* 25 MG PO ONE (20:00)
[2017-01-03] MEDS: ceFAZolin VIAL(*) 1 GM in NS 0.9% 50 ML* 50 ML IVPB SCH (05:01)
[2017-01-03] MEDS: Heparin VIAL(*) 5000 UNITS/ML VIAL (FIVE THOUSAND) SUBCUT SCH ×3 (05:51→22:21)
[2017-01-03] MEDS: Vancomycin(*) 750 MG in NS 0.9% 250 ML* 250 ML IVPB SCH ×2 (05:51→18:00)
[2017-01-03 05:57] LABS: Hematocrit 31 % (42-52); Hemoglobin 10.3 g/dl (14.0-18.0); Mean Corpuscular HGB Conc 34 g/dl (31-36); Mean Corpuscular Hemoglobin 28 pg (27-31); Mean Corpuscular Volume 82 fL (80-94); Mean Platelet Volume 8 um3 (7.4-10.4); Red Blood Count 3.75 10^6/ul (4.0-5.4); Red Cell Distribution Width 13 % (10.5-15); White Blood Count 9.5 10^3/ul (3.5-10.8)
[2017-01-03 06:16] LABS: BUN/Creatinine Ratio 17.4 (8-20); C Reactive Protein 46.82 mg/L (< 5.00); Calcium 8.4 mg/dL (8.6-10.3); EGFR African American 54.2 (>60); EGFR Non-African American 42.2 (>60); Potassium 4.6 mmol/L (3.5-5.0)
[2017-01-03] MEDS: Insulin LISPRO* 1 UNITS UNIT SUBCUT SCH ×3 (07:28→16:44)
[2017-01-03] MEDS: amLODIPine TAB* 5 MG PO SCH (08:17)
[2017-01-03] MEDS: oxyCODONE/Acetamin 5/325 MG* TAB PO PRN ×2 (08:17→19:45)
[2017-01-03] MEDS: Metoprolol Succinate XL TAB* 50 MG PO SCH ×2 (08:17→19:45)
[2017-01-03] MEDS: Atorvastatin* 80 MG TAB PO SCH (08:17)
[2017-01-03] MEDS: Aspirin EC Low Dose* 81 MG TAB.EC PO SCH (08:17)
--- NOTE | 2017-01-03 09:25 | PN ---
Progress Note - Progress Note Date of Service: 01/03/17 SOAP: Subjective: CC: arm infection HPI: 61 yo man with right arm and hand swelling a few days after phlebotomy. Elbow improving still as is forearm but hand and fingers more swoll No fever, rash, or diarrhea. Objective: [] Vital Signs Temp 36.5 C 01/02/17 07:29 Pulse 57 01/02/17 07:29 Resp 16 01/02/17 09:48 BP 150/66 01/02/17 07:29 Pulse Ox 99 01/02/17 07:29 Intake & Output 01/01/17 01/02/17 01/02/17 18:59 06:59 18:59 Intake Total 2245 964 Output Total 200 1000 Balance 2044 Weight 223 lb 6.4 oz Intake: IV Fluids 30 29 NS (0.9%) 30 29 IVPB 55 135 ABX - CEFAZOLIN 55 135 Oral 2160 800 Output: Urine 200 1000 Other: # Bowel Movements 1 # Voids 4 Gen:Awake, no distress HEENT:PERRL, MMM Neck:supple Heart:RRR no murmur Lungs:CTA BL Abd:+BS NTND soft Skin: no rash MSK: right elbow olecranon effusion, improved ROM with elbow flex/ext/pronation/ supination, no wrist pain with ROM or palpation. Diffuse dorsal hand edema, tender, on crepitus or fluctuance, diffuse finger edema which is non tender. Laboratory Results - last 24 hr 01/02/17 01/02/17 01/03/17 11:50 16:38 05:12 WBC 9.5 RBC 3.75 L Hgb 10.3 L Hct 31 L MCV 82 MCH 28 MCHC 34 RDW 13 Plt Count 275 MPV 8 Neut % (Auto) 72.3 Lymph % (Auto) 15.2 L [place] % (Auto) 8.6 Eos % (Auto) 2.8 Baso % (Auto) 1.1 Absolute Neuts (auto) 6.9 Absolute Lymphs (auto) 1.5 Absolute Monos (auto) 0.8 Absolute Eos (auto) 0.3 Absolute Basos (auto) 0.1 Absolute Nucleated RBC 0 Nucleated RBC % 0 Sodium Potassium Chloride Carbon Dioxide Anion Gap BUN Creatinine Est GFR ( Amer) Est GFR (Non-Af Amer) BUN/Creatinine Ratio Glucose POC Glucose (mg/dL) 138 H 111 H Calcium C-Reactive Protein 01/03/17 01/03/17 05:12 07:27 WBC RBC Hgb Hct MCV MCH MCHC RDW Plt Count MPV Neut % (Auto) Lymph % (Auto) [place] % (Auto) Eos % (Auto) Baso % (Auto) Absolute Neuts (auto) Absolute Lymphs (auto) Absolute Monos (auto) Absolute Eos (auto) Absolute Basos (auto) Absolute Nucleated RBC Nucleated RBC % Sodium 134 Potassium 4.6 Chloride 105 Carbon Dioxide 21 L Anion Gap 8 BUN 29 H Creatinine 1.67 H Est GFR ( Amer) 54.2 Est GFR (Non-Af Amer) 42.2 BUN/Creatinine Ratio 17.4 Glucose 102 H POC Glucose (mg/dL) 80 Calcium 8.4 L C-Reactive Protein 46.82 H Assessment: 1. Right arm infection; fasciitis and cellulitis; overall improving 2. Right hand cellulitis, worse today 3. elevated CRP 4. T2DM 5. gout Plan: 1. continue vancomycin goal tr 15-20 and ceftriaxone, schedule tylenol and add ice pack for fingers; Recheck US for DVT and CT hand for abscess. Ortho re- evaluation. Discussed with Keren Padilla NP 35 minutes floor time >50% face to face counseling regarding evaluation and treatment of hand infection including repeat imaging. All questions answered.
--- NOTE | 2017-01-03 09:54 | PN ---
Subjective Date of Service: 01/03/17 Interval History: Patient seen and examined at bedside. Right hand more edematous today with some decreased ROM. Reports improvement in elbow ROM Denies fever/chills, CP, SOB, n/v. Family History: Unchanged from Admission Social History: Unchanged from Admission Past Medical History: Unchanged from Admission Objective Active Medications: Acetaminophen (Tylenol Tab*) 650 mg PO Q4H PRN PRN Reason: FEVER/PAIN Amlodipine Besylate (Norvasc Tab*) 10 mg PO DAILY [facility] Last Admin: 01/03/17 08:17 Dose: 10 mg Aspirin (Aspirin Ec Low Dose*) 81 mg PO DAILY [facility] Last Admin: 01/03/17 08:17 Dose: 81 mg Atorvastatin Calcium (Lipitor*) 80 mg PO DAILY [facility] Last Admin: 01/03/17 08:17 Dose: 80 mg Cyclobenzaprine HCl (Flexeril Tab*) 10 mg PO BID PRN PRN Reason: SPASMS Dextrose (D50w Syringe 50 Ml*) 12.5 gm IV PUSH .FOR FS < 60 - SS PRN PRN Reason: FS < 60 Heparin Sodium (Porcine) (Heparin Vial(*)) 5,000 units SUBCUT Q8HR [facility] Last Admin: 01/03/17 05:51 Dose: 5,000 units Cefazolin Sodium 1 gm/ Sodium (Chloride) 50 mls @ 200 mls/hr IVPB Q8H [facility] Last Admin: 01/03/17 05:01 Dose: 200 mls/hr Vancomycin HCl 750 mg/ Sodium (Chloride) 250 mls @ 166.667 mls/hr IVPB Q12H [facility] Last Admin: 01/03/17 05:51 Dose: 166.667 mls/hr Insulin Human Lispro (Humalog*) 0 units SUBCUT AC [facility] PRN Reason: Protocol Last Admin: 01/03/17 07:28 Dose: Not Given Metoprolol Succinate (Toprol Xl Tab*) 50 mg PO BID [facility] Last Admin: 01/03/17 08:17 Dose: 50 mg Ondansetron HCl (Zofran Inj*) 4 mg IV Q6H PRN PRN Reason: NAUSEA/VOMITING Oxycodone/Acetaminophen (Percocet 5/325 Tab*) 1 tab PO Q4H PRN PRN Reason: Pain Last Admin: 01/03/17 08:17 Dose: 1 tab Pharmacy Consult (Vancomycin Per Pharmacy*) 1 note FOLLOW UP . PRN PRN Reason: PER PROTOCOL Pharmacy Profile Note (Vancomycin Trough Check) 1 note FOLLOW UP 05 ONE Stop: 01/04/17 05:31 Vital Signs 01/02/17 01/02/17 01/02/17 15:34 19:40 20:00 Temperature 97.3 F 97.5 F Pulse Rate 58 64 Respiratory 16 16 16 Rate Blood Pressure 149/78 171/74 (mmHg) O2 Sat by Pulse 100 100 Oximetry 01/02/17 01/02/17 01/02/17 20:20 22:20 23:44 Temperature 98.3 F Pulse Rate 60 Respiratory 16 16 13 Rate Blood Pressure 159/62 (mmHg) O2 Sat by Pulse Oximetry 01/02/17 01/03/17 01/03/17 23:57 07:35 08:01 Temperature 97.6 F Pulse Rate 64 59 Respiratory 16 17 Rate Blood Pressure 152/75 (mmHg) O2 Sat by Pulse 94 100 Oximetry 01/03/17 01/03/17 08:17 09:54 Temperature Pulse Rate Respiratory 16 16 Rate Blood Pressure (mmHg) O2 Sat by Pulse Oximetry Oxygen Devices in Use Now: None Appearance: Male patient, OOB to chair, NAD Eyes: PERRLA Ears/Nose/Mouth/Throat: Mucous Membranes Moist Respiratory: Symmetrical Chest Expansion and Respiratory Effort, Clear to Auscultation Cardiovascular: NL Sounds; No Murmurs; No JVD, RRR Abdominal: NL Sounds; No Tenderness; No Distention Extremities: - - right hand edema and erythema extending to 1st, 2nd, and 3rd finger joints Neurological: Alert and Oriented x 3 Lines/Tubes/Other Access: Clean, Dry and Intact Peripheral IV Result Diagrams: 01/03/17 05:12 01/03/17 05:12 Additional Lab and Data: Lab Results 12/29/16 12/29/16 12/29/16 Range/Units 11:15 11:15 11:15 WBC 9.0 (3.5-10.8) 10^3/ul RBC 4.05 (4.0-5.4) 10^6/ul Hgb 11.2 L (14.0-18.0) g/dl Hct 33 L (42-52) % MCV 82 (80-94) fL MCH 28 (27-31) pg MCHC 34 (31-36) g/dl RDW 13 (10.5-15) % Plt Count 242 (150-450) 10^3/ul MPV 8 (7.4-10.4) um3 Neut % (Auto) 75.0 (38-83) % Lymph % (Auto) 11.9 L (25-47) % [place] % (Auto) 10.4 H (1-9) % Eos % (Auto) 1.7 (0-6) % Baso % (Auto) 1.0 (0-2) % Absolute Neuts (auto) 6.8 (1.5-7.7) 10^3/ul Absolute Lymphs (auto) 1.1 (1.0-4.8) 10^3/ul Absolute Monos (auto) 0.9 H (0-0.8) 10^3/ul Absolute Eos (auto) 0.2 (0-0.6) 10^3/ul Absolute Basos (auto) 0.1 (0-0.2) 10^3/ul Absolute Nucleated RBC 0.01 10^3/ul Nucleated RBC % 0.1 Sodium 132 L (133-145) mmol/L Potassium 4.3 (3.5-5.0) mmol/L Chloride 100 L (101-111) mmol/L Carbon Dioxide 22 (22-32) mmol/L Anion Gap 10 (2-11) mmol/L BUN 46 H (6-24) mg/dL Creatinine 3.26 H (0.67-1.17) mg/dL Est GFR ( Amer) 25.1 (>60) Est GFR (Non-Af Amer) 19.5 (>60) BUN/Creatinine Ratio 14.1 (8-20) Glucose 104 H (70-100) mg/dL POC Glucose (mg/dL) (74-106) mg/dL Hemoglobin A1c (Less than 6.0) % Lactic Acid 1.1 (0.5-2.0) mmol/L Uric Acid (4.4-7.6) mg/dL Calcium 8.5 L (8.6-10.3) mg/dL Total Bilirubin 0.30 (0.2-1.0) mg/dL AST 11 L (13-39) U/L ALT 9 (7-52) U/L Alkaline Phosphatase 52 (34-104) U/L Total Creatine Kinase (10-223) U/L C-Reactive Protein 98.19 H (< 5.00) mg/L Total Protein 7.4 (6.4-8.9) g/dL Albumin 3.4 (3.2-5.2) g/dL Globulin 4.0 (2-4) g/dL Albumin/Globulin Ratio 0.9 L (1-3) 12/29/16 12/29/16 12/30/16 Range/Units 11:15 17:18 05:19 WBC 7.8 (3.5-10.8) 10^3/ul RBC 3.98 L (4.0-5.4) 10^6/ul Hgb 11.2 L (14.0-18.0) g/dl Hct 33 L (42-52) % MCV 82 (80-94) fL MCH 28 (27-31) pg MCHC 34 (31-36) g/dl RDW 13 (10.5-15) % Plt Count 244 (150-450) 10^3/ul MPV 9 (7.4-10.4) um3 Neut % (Auto) 70.8 (38-83) % Lymph % (Auto) 17.0 L (25-47) % [place] % (Auto) 9.4 H (1-9) % Eos % (Auto) 1.8 (0-6) % Baso % (Auto) 1.0 (0-2) % Absolute Neuts (auto) 5.5 (1.5-7.7) 10^3/ul Absolute Lymphs (auto) 1.3 (1.0-4.8) 10^3/ul Absolute Monos (auto) 0.7 (0-0.8) 10^3/ul Absolute Eos (auto) 0.1 (0-0.6) 10^3/ul Absolute Basos (auto) 0.1 (0-0.2) 10^3/ul Absolute Nucleated RBC 0 10^3/ul Nucleated RBC % 0 Sodium (133-145) mmol/L Potassium (3.5-5.0) mmol/L Chloride (101-111) mmol/L Carbon Dioxide (22-32) mmol/L Anion Gap (2-11) mmol/L BUN (6-24) mg/dL Creatinine (0.67-1.17) mg/dL Est GFR ( Amer) (>60) Est GFR (Non-Af Amer) (>60) BUN/Creatinine Ratio (8-20) Glucose (70-100) mg/dL POC Glucose (mg/dL) 92 (74-106) mg/dL Hemoglobin A1c 5.9 (Less than 6.0) % Lactic Acid (0.5-2.0) mmol/L Uric Acid (4.4-7.6) mg/dL Calcium (8.6-10.3) mg/dL Total Bilirubin (0.2-1.0) mg/dL AST (13-39) U/L ALT (7-52) U/L Alkaline Phosphatase (34-104) U/L Total Creatine Kinase (10-223) U/L C-Reactive Protein (< 5.00) mg/L Total Protein (6.4-8.9) g/dL Albumin (3.2-5.2) g/dL Globulin (2-4) g/dL Albumin/Globulin Ratio (1-3) 12/30/16 12/30/16 Range/Units 05:19 07:51 WBC (3.5-10.8) 10^3/ul RBC (4.0-5.4) 10^6/ul Hgb (14.0-18.0) g/dl Hct (42-52) % MCV (80-94) fL MCH (27-31) pg MCHC (31-36) g/dl RDW (10.5-15) % Plt Count (150-450) 10^3/ul MPV (7.4-10.4) um3 Neut % (Auto) (38-83) % Lymph % (Auto) (25-47) % [place] % (Auto) (1-9) % Eos % (Auto) (0-6) % Baso % (Auto) (0-2) % Absolute Neuts (auto) (1.5-7.7) 10^3/ul Absolute Lymphs (auto) (1.0-4.8) 10^3/ul Absolute Monos (auto) (0-0.8) 10^3/ul Absolute Eos (auto) (0-0.6) 10^3/ul Absolute Basos (auto) (0-0.2) 10^3/ul Absolute Nucleated RBC 10^3/ul Nucleated RBC % Sodium 132 L (133-145) mmol/L Potassium 4.0 (3.5-5.0) mmol/L Chloride 105 (101-111) mmol/L Carbon Dioxide 22 (22-32) mmol/L Anion Gap 5 (2-11) mmol/L BUN 43 H (6-24) mg/dL Creatinine 2.82 H (0.67-1.17) mg/dL Est GFR ( Amer) 29.6 (>60) Est GFR (Non-Af Amer) 23.0 (>60) BUN/Creatinine Ratio 15.2 (8-20) Glucose 86 (70-100) mg/dL POC Glucose (mg/dL) 117 H (74-106) mg/dL Hemoglobin A1c (Less than 6.0) % Lactic Acid (0.5-2.0) mmol/L Uric Acid 9.9 H (4.4-7.6) mg/dL Calcium 8.4 L (8.6-10.3) mg/dL Total Bilirubin (0.2-1.0) mg/dL AST (13-39) U/L ALT (7-52) U/L Alkaline Phosphatase (34-104) U/L Total Creatine Kinase 48 (10-223) U/L C-Reactive Protein 69.13 H (< 5.00) mg/L Total Protein (6.4-8.9) g/dL Albumin (3.2-5.2) g/dL Globulin (2-4) g/dL Albumin/Globulin Ratio (1-3) Diagnostic Imaging: Doppler RUE: No sonographic evidence of DVT RUE CT: extensive cellulitis, potential olecranon bursitis with calcified loose bodies. No compelling CT evidence for presence of a loculated soft tissue plane abscess collection. RUE MRI: findings most consistent with cellulitis and fascitis. No evidence for abscess. Small effusion within the elbow joint. XR of right hand, forearm, elbow: unremarkable R hand. No fx of right forearm present. Diffuse soft tissue swelling about the elbow, extending into the forearm; no fracture or foreign body of elbow. Assess/Plan/Problems-Billing Assessment: Mr. Carrillo is a 61 yo male with a PMH of HTN, HLD, DM, anxiety, and gout who presented to the ED on 12/29 with concern for dizziness, nausea, RUE edema and pain; patient previously on Bactrim prescribed by CC with no improvement. Patient also found to have JAJA. - Patient Problems (1) Cellulitis of right upper extremity Code(s): L03.113 - CELLULITIS OF RIGHT UPPER LIMB Comment: Cellulitis and fascitis of RUE Now with worsening right hand edema, previously failed outpatient tx with Bactrim. CRP increased from previous Continue cefazolin and vancomycin. Encourage extremity elevation and ice packs to hand Appreciate ID consult. Repeat US, CT of RUE to r/o abscess Consult to ortho for evaluation of hand (spoke with Dr. Malagon) (2) Acute kidney injury Code(s): N17.9 - ACUTE KIDNEY FAILURE, UNSPECIFIED Comment: Suspect acute on chronic process Suspect secondary to dehydration and Bactrim [facility] creatinine 1.8 (3) Diabetes Code(s): E11.9 - TYPE 2 DIABETES MELLITUS WITHOUT COMPLICATIONS Comment: HgbA1c 5.9 Continue FSBG with Lispro SSI Resume home metformin at discharge. (4) HTN (hypertension) Code(s): I10 - ESSENTIAL (PRIMARY) HYPERTENSION Comment: Worsening BP control trend over the course of the day and overnight. HR averages in 60s with occasional dips in 50s. Will try BID dosing of metoprolol for better BP control. Continue amlodipine. Pain management (5) HLD (hyperlipidemia) Code(s): E78.5 - HYPERLIPIDEMIA, UNSPECIFIED Comment: Continue atorvastatin. (6) DVT prophylaxis Comment: SQ heparin Status and Disposition: Inpatient. Extended LOS for infection and need for IV abx.
--- NOTE | 2017-01-03 12:16 | RAD ---
INDICATION: RIGHT hand pain and edema. Extensive cellulitis of the RIGHT arm and hand. Anticoagulated. COMPARISON: No relevant prior exams available on the [facility] PACS for comparison. TECHNIQUE: Duplex ultrasound of the RIGHT internal jugular, subclavian, axillary, brachial, radial, ulnar, basilic, and cephalic veins. With the exception of the non accessible subclavian vein compressibility of venous segments assessed. Augmentation and phasicity assessed throughout. REPORT: The deep RIGHT internal jugular, subclavian, axial, brachial, radial, and ulnar veins are patent. The superficial basilic and cephalic veins are patent. Extensive subcutaneous edema at the RIGHT upper arm and forearm. Patency of the LEFT documented subclavian vein documented. IMPRESSION: No evidence for RIGHT upper extremity deep venous thrombosis.
[2017-01-03] MEDS: cefTRIAXone VIAL(*) 1,000 MG in NS 0.9% 50 ML* 50 ML IVPB SCH (13:25)
--- NOTE | 2017-01-03 14:21 | RAD ---
INDICATION: Right hand cellulitis. COMPARISON: Comparison is made with a prior x-ray study of the right hand from December 30, 2016. TECHNIQUE: Axial, sagittal and coronal T1 and T2-weighted images of the right hand were obtained. FINDINGS: There is diffuse soft tissue swelling present in the superficial and deep soft tissues of the hand and wrist. This is most prominent in the subcutaneous tissues along the dorsal aspect of the hand and wrist. No focal fluid collection or abscess is seen. The bones are normal in signal intensity without evidence for osteomyelitis. IMPRESSION: FINDINGS MOST CONSISTENT WITH CELLULITIS AND FASCIITIS. NO EVIDENCE FOR ABSCESS.
[2017-01-04] MEDS ORDERED: Vancomycin Trough Check NOTE FOLLOW UP ONE (05:30)
[2017-01-04 06:48] LABS: BUN/Creatinine Ratio 17.9 (8-20); C Reactive Protein 63.89 mg/L (< 5.00); Calcium 8.5 mg/dL (8.6-10.3); EGFR African American 58.7 (>60); EGFR Non-African American 45.6 (>60); Potassium 4.7 mmol/L (3.5-5.0)
[2017-01-04] MEDS: Heparin VIAL(*) 5000 UNITS/ML VIAL (FIVE THOUSAND) SUBCUT SCH ×2 (06:56→14:15)
--- NOTE | 2017-01-04 07:32 | CONS ---
CONSULTATION NOTE: DATE OF CONSULT: 01/03/17 REASON FOR CONSULTATION: Evaluate for right upper extremity infection. HISTORY OF PRESENT ILLNESS: The patient is a 61-year-old man, who has been an inpatient at [facility] since 12/29/16, who was admitted with right upper extremity infection, presumptive cellulitis with failed outpatient oral antibiotic treatment. The patient's elbow swelling has improved, but his hand swelling has worsened and a new orthopedic consultation request was made. The patient notes that he had a blood draw at the [facility] approximately 10 days ago. The next day, 12/25/16, the patient developed right upper extremity pain and swelling about the forearm and elbow. He describes going to [facility] on 12/25/16 where he was diagnosed with right upper extremity cellulitis and he was discharged on Bactrim oral antibiosis. Unfortunately, the pain and swelling worsened and the patient presented to [facility] on 12/29/16, and was admitted for treatment of cellulitis. The patient was noted in the emergency department on December 29 to have some nausea, dizziness, lightheadedness and some mild exertional shortness of breath as well as swelling from the right elbow to the right hand. The patient denied fever, sweats, chills and has throughout his course in the hospital. An ultrasound of his right upper extremity was negative for DVT. The patient was diagnosed with right upper extremity cellulitis and started on IV ceftriaxone. The patient had imaging to rule out a fluid collection. This included a CT scan on 12/30/16, which showed no fluid collection; however, it showed extensive soft tissue swelling consistent with cellulitis and possibly olecranon bursitis secondary to some calcific loose bodies in the olecranon bursa. An MRI done on the same day was described as showing cellulitis and fasciitis as well as loose bodies in the olecranon bursa. Orthopedic Surgery was first called on 12/30/[address] Rodriguez instructed on the ordering of advanced imaging and diagnosed the patient with cellulitis. The patient has been followed by Dr. Chencho Valiente, who advised regarding the treatment with vancomycin and Ancef, but that has subsequently been changed to ceftriaxone and vancomycin, which are still active now. The patient describes and his progress and consultation notes describe an improvement in his right elbow and forearm symptoms, but a slight worsening in the last day or so in his hand symptoms. Principally they describe increased swelling in the right hand. The patient describes no fever, sweats or chills now. The patient describes swelling in the right hand with minimal pain in the right hand. He denies any current shoulder or elbow pain and denies having any streaking erythema of this arm in the recent past. The patient was diagnosed with cellulitis of the lower leg in October of 2016 and was treated with Bactrim and Augmentin. He also has been treated in the last year for a gouty attack per a Medicine note. No current numbness or tingling. No fevers, sweats or chills. No other joint pain. PHYSICAL EXAMINATION: Temperature is 97.7 degrees Fahrenheit, heart rate 63, respirations 18, blood pressure 154/73 and O2 sat 99% on room air. These were vitals obtained at 7:39 p.m. on January 03. No acute distress. The patient appears comfortable. The patient does not appear in any pain. Appropriate mood and affect, although the patient seems somewhat distracted. The patient's family and guests could barely take their eyes off their telephone screens to listen to my questions. The patient's history, although he was not certain of the timeline of the symptoms, meshes well with the consultation and progress notes from which I gathered much of his history. Alert and oriented x3. Appropriate dress and hygiene. Non-antalgic gait. Well coordinated upper extremities. Right upper extremity exam demonstrates no palpable lymphadenopathy about the right axilla or epitrochleal area about the medial elbow. There is no erythematous streaking of the arm. No pain and full passive range of motion of the right elbow and no weakness with resistive elbow flexion and extension. No bogginess about the olecranon bursa. No soft tissue swelling appreciated about the right elbow. No tenderness to palpation about the right forearm or wrist. No pain with passive range of motion of the wrist. The patient has some global soft tissue swelling, severe about the right hand. However, the patient only has minimal tenderness to palpation. With vigorous palpation, he had some inconsistent tenderness at the level of the MP joints including between the index and long finger, and long finger and ring finger MP joints. No warmth to the right hand. No open skin. No bruising. The patient has limited active and passive range of motion of the fingers secondary to this soft tissue swelling. His fingers are spread in the abducted position, likely secondary to the swelling. No pain with passive range of motion of all digits. Neurovascularly intact distally with cap refill less than 2 seconds to all digits. Sensation intact to all digits and motor intact to AIN, PIN, and ulnar nerve distributed musculature. Hand compartments are soft. IMAGING: MRI and CT reports from 12/30/16 were both reviewed by me and they show no fluid collections. Those reports show soft tissue swelling consistent with cellulitis and/or fasciitis. MRI from 01/03/17, report reviewed by me, and it reads diffuse soft tissue swelling in the superficial and deeper soft tissues of the hand and wrist, most prominent in the dorsal hand and wrist. No fluid collection or abscess consistent with cellulitis and fascitis. LABORATORY DATA: Laboratories: White blood cell count on January 03 of 9.5, white blood cell count within normal range on December 29, December 30 and January 01 as well. CRP 46.82. ASSESSMENT: 1. Right hand soft tissue swelling, severe. 2. Possible right hand cellulitis and/or fasciitis. PLAN: 1. As I discussed with the hospitalist team this morning upon examining the patient, to my mind, the patient has no clear sign of infection currently on exam today. He has no skin erythema. His tenderness to palpation is rather minimal and could be explained by the soft tissue swelling itself. No clear collection on advanced imaging is visualized. However, I have only seen and examined the patient in one point in time and I certainly differ partially to the prior diagnosis of cellulitis. The patient has had no constitutional symptoms of an infection and has had a normal white count, although has an elevated CRP which is certainly nonspecific. No exam sign of necrotizing fasciitis, tendon tenosynovitis, infected joint. 2. I felt that whatever the patient's prior diagnosis, possible elbow or forearm cellulitis, it seems that right now he has a significant amount of dependent soft tissue edema in his hand and fingers. For this, I recommended aggressive physical therapy with a hand therapist, inpatient, to prevent stiffness and to move the fingers and the make the soft tissue swelling resolve more quickly. 3. Just in case, despite the relatively benign exam, I recommended ordering an MRI scan to rule out a collar button abscess or another possible location of fluid collection in the hand that might lead to this significant amount of soft tissue swelling. As was described above, this MRI scan came back showing no fluid collection. 4. Continue IV antibiotics given the past diagnosis of cellulitis, corroborated by Dr. Cooper. 5. I will reexamine the patient in the morning and check on change in hand exam. ADDENDUM: On the morning of 01/04/17, the patient's exam showed erythema of the skin of the hand, mild, about the dorsum. This is clearly an infection and a cellulitis. I appreciate the opportunity to do the consultation. [id number]/CPS #: [id number]
[2017-01-04] MEDS: Insulin LISPRO* 1 UNITS UNIT SUBCUT SCH ×3 (08:35→17:28)
[2017-01-04] MEDS: Atorvastatin* 80 MG TAB PO SCH (09:07)
[2017-01-04] MEDS: Metoprolol Succinate XL TAB* 50 MG PO SCH ×2 (09:08→20:36)
[2017-01-04] MEDS: Aspirin EC Low Dose* 81 MG TAB.EC PO SCH (09:08)
[2017-01-04] MEDS: oxyCODONE/Acetamin 5/325 MG* TAB PO PRN ×2 (09:23→18:03)
--- NOTE | 2017-01-04 09:25 | PN ---
Progress Note - Progress Note Date of Service: 01/04/17 SOAP: Subjective: Denies fevers, sweats, chills. Seen by therapy yesterday and given exercises for R hand. MRI and upper extremity US yesterday. Minimal pain at baseline R hand. Describes taking Objective: NAD. Comfortable-appearing, in no obvious discomfort except when hand examined. RUE: - No palpable annd/or tender lymphadenopathy - No erythematous streaking - FROM, pain-free of elbow, forearm, wrist - No swelling or TTP elbow, forearm, wrist - Hand - Severe hand swelling of soft tissue with fingers abducted - Erythema of skin of hand dorsum - No open skin - TTP mild throughout hand, worst about the index finger MP joint and thumb IP joint - No consistent pain whatsoever with PROM fingers - With AROM, no significant pain, although patient struggles to make anything close to a fist given stiffness throughout hand - NVID Selected Entries 01/04/17 07:23 Temperature 98.3 F Pulse Rate 58 Respiratory 16 Rate Blood Pressure 150/71 (mmHg) O2 Sat by Pulse 100 Oximetry Laboratory Tests 01/03/17 01/03/17 01/04/17 05:12 05:12 06:15 WBC 9.5 Creatinine 1.56 H C-Reactive Protein 46.82 H 63.89 H MRI: (01/03/17) inflammation throughout the hand, subcutaneous tissue and fascia , more dorsal than volar hand; no clear fluid collection US: (01/03/17) negative for DVT Assessment: 1. Right hand cellulitis and severe soft tissue swelling Plan: 1. No current sign on exam of necrotizing fasciitis, infected tenosynovitis, infected joint, compartment syndrome. No fluid collection by MRI (x2). So no surgical indication at this time. 2. There is the question of why hand is not improving despite IV antibiotics, although I have only seen hand yesterday and today, and the upper extremity ( including the elbow and forearm) as a whole has improved significantly on IV antibiotics this week. 3. Continue IV antibiotics. Defer to Dr. Cooper on particular coverage. 4. Aggressive hand therapy to dissipate soft tissue swelling and regain ROM fingers and prevent stiffness.
--- NOTE | 2017-01-04 09:34 | PN ---
Subjective Date of Service: 01/04/17 Interval History: Mr. Carrillo reports feeling well today. He believes that his right hand swelling is essentially unchanged from yesterday. He has some pain with ROM. He denies other complaint including chest pain, SOB, nausea, or abdominal pain. Family History: Unchanged from Admission Social History: Unchanged from Admission Past Medical History: Unchanged from Admission Objective Active Medications: Acetaminophen (Tylenol Tab*) 650 mg PO Q4H PRN Amlodipine Besylate (Norvasc Tab*) 10 mg PO DAILY AMY Aspirin (Aspirin Ec Low Dose*) 81 mg PO DAILY AMY Atorvastatin Calcium (Lipitor*) 80 mg PO DAILY AMY Cyclobenzaprine HCl (Flexeril Tab*) 10 mg PO BID PRN Dextrose (D50w Syringe 50 Ml*) 12.5 gm IV PUSH .FOR FS < 60 - SS PRN Docusate Sodium (Colace Cap*) 100 mg PO DAILY PRN Heparin Sodium (Porcine) (Heparin Vial(*)) 5,000 units SUBCUT Q8HR AMY Ceftriaxone Sodium 1,000 mg/ (Sodium Chloride) 50 mls @ 200 mls/hr IVPB Q24H AMY Vancomycin HCl 500 mg/ Sodium (Chloride) 250 mls @ 166.667 mls/hr IVPB Q12H AMY Insulin Human Lispro (Humalog*) 0 units SUBCUT AC AMY Metoprolol Succinate (Toprol Xl Tab*) 50 mg PO BID AMY Ondansetron HCl (Zofran Inj*) 4 mg IV Q6H PRN Oxycodone/Acetaminophen (Percocet 5/325 Tab*) 1 tab PO Q4H PRN Pharmacy Consult (Vancomycin Per Pharmacy*) 1 note FOLLOW UP . PRN Pharmacy Profile Note (Vancomycin Trough Check) 1 note FOLLOW UP 0530 ONE Polyethylene Glycol/Electrolytes (Miralax*) 17 gm PO DAILY PRN Senna (Senokot Tab*) 1 tab PO BEDTIME PRN Vital Signs 01/03/17 01/03/17 01/03/17 09:54 16:05 19:39 Temperature 98.2 F 97.7 F Pulse Rate 61 63 Respiratory 16 16 18 Rate Blood Pressure 151/75 154/73 (mmHg) O2 Sat by Pulse 100 99 Oximetry 01/03/17 01/03/17 01/03/17 19:45 20:00 21:45 Temperature Pulse Rate Respiratory 18 18 18 Rate Blood Pressure (mmHg) O2 Sat by Pulse Oximetry 01/03/17 01/04/17 01/04/17 23:40 03:56 07:23 Temperature 98.4 F 98.2 F 98.3 F Pulse Rate 61 65 58 Respiratory 16 16 16 Rate Blood Pressure 143/60 158/62 150/71 (mmHg) O2 Sat by Pulse 95 98 100 Oximetry 01/04/17 09:23 Temperature Pulse Rate Respiratory 16 Rate Blood Pressure (mmHg) O2 Sat by Pulse Oximetry Oxygen Devices in Use Now: None Appearance: Male sitting up on edge of bed in NAD Eyes: No Scleral Icterus Ears/Nose/Mouth/Throat: Mucous Membranes Moist Neck: Trachea Midline Respiratory: Symmetrical Chest Expansion and Respiratory Effort, Clear to Auscultation Cardiovascular: NL Sounds; No Murmurs; No JVD, No Edema Abdominal: NL Sounds; No Tenderness; No Distention Lymphatic: No Cervical Adenopathy Extremities: - - Right hand significantly swollen along dorsal aspect, some minimal erythema. Fingers are not significantly swollen. Patient has limited ROM. Skin: No Rash or Ulcers Neurological: Alert and Oriented x 3, NL Muscle Strength and Tone Nutrition: Taking PO's Result Diagrams: 01/03/17 05:12 01/04/17 06:15 Additional Lab and Data: Lab Results 12/29/16 12/29/16 12/29/16 Range/Units 11:15 11:15 11:15 WBC 9.0 (3.5-10.8) 10^3/ul RBC 4.05 (4.0-5.4) 10^6/ul Hgb 11.2 L (14.0-18.0) g/dl Hct 33 L (42-52) % MCV 82 (80-94) fL MCH 28 (27-31) pg MCHC 34 (31-36) g/dl RDW 13 (10.5-15) % Plt Count 242 (150-450) 10^3/ul MPV 8 (7.4-10.4) um3 Neut % (Auto) 75.0 (38-83) % Lymph % (Auto) 11.9 L (25-47) % [place] % (Auto) 10.4 H (1-9) % Eos % (Auto) 1.7 (0-6) % Baso % (Auto) 1.0 (0-2) % Absolute Neuts (auto) 6.8 (1.5-7.7) 10^3/ul Absolute Lymphs (auto) 1.1 (1.0-4.8) 10^3/ul Absolute Monos (auto) 0.9 H (0-0.8) 10^3/ul Absolute Eos (auto) 0.2 (0-0.6) 10^3/ul Absolute Basos (auto) 0.1 (0-0.2) 10^3/ul Absolute Nucleated RBC 0.01 10^3/ul Nucleated RBC % 0.1 Sodium 132 L (133-145) mmol/L Potassium 4.3 (3.5-5.0) mmol/L Chloride 100 L (101-111) mmol/L Carbon Dioxide 22 (22-32) mmol/L Anion Gap 10 (2-11) mmol/L BUN 46 H (6-24) mg/dL Creatinine 3.26 H (0.67-1.17) mg/dL Est GFR ( Amer) 25.1 (>60) Est GFR (Non-Af Amer) 19.5 (>60) BUN/Creatinine Ratio 14.1 (8-20) Glucose 104 H (70-100) mg/dL POC Glucose (mg/dL) (74-106) mg/dL Hemoglobin A1c (Less than 6.0) % Lactic Acid 1.1 (0.5-2.0) mmol/L Uric Acid (4.4-7.6) mg/dL Calcium 8.5 L (8.6-10.3) mg/dL Total Bilirubin 0.30 (0.2-1.0) mg/dL AST 11 L (13-39) U/L ALT 9 (7-52) U/L Alkaline Phosphatase 52 (34-104) U/L Total Creatine Kinase (10-223) U/L C-Reactive Protein 98.19 H (< 5.00) mg/L Total Protein 7.4 (6.4-8.9) g/dL Albumin 3.4 (3.2-5.2) g/dL Globulin 4.0 (2-4) g/dL Albumin/Globulin Ratio 0.9 L (1-3) 12/29/16 12/29/16 12/30/16 Range/Units 11:15 17:18 05:19 WBC 7.8 (3.5-10.8) 10^3/ul RBC 3.98 L (4.0-5.4) 10^6/ul Hgb 11.2 L (14.0-18.0) g/dl Hct 33 L (42-52) % MCV 82 (80-94) fL MCH 28 (27-31) pg MCHC 34 (31-36) g/dl RDW 13 (10.5-15) % Plt Count 244 (150-450) 10^3/ul MPV 9 (7.4-10.4) um3 Neut % (Auto) 70.8 (38-83) % Lymph % (Auto) 17.0 L (25-47) % [place] % (Auto) 9.4 H (1-9) % Eos % (Auto) 1.8 (0-6) % Baso % (Auto) 1.0 (0-2) % Absolute Neuts (auto) 5.5 (1.5-7.7) 10^3/ul Absolute Lymphs (auto) 1.3 (1.0-4.8) 10^3/ul Absolute Monos (auto) 0.7 (0-0.8) 10^3/ul Absolute Eos (auto) 0.1 (0-0.6) 10^3/ul Absolute Basos (auto) 0.1 (0-0.2) 10^3/ul Absolute Nucleated RBC 0 10^3/ul Nucleated RBC % 0 Sodium (133-145) mmol/L Potassium (3.5-5.0) mmol/L Chloride (101-111) mmol/L Carbon Dioxide (22-32) mmol/L Anion Gap (2-11) mmol/L BUN (6-24) mg/dL Creatinine (0.67-1.17) mg/dL Est GFR ( Amer) (>60) Est GFR (Non-Af Amer) (>60) BUN/Creatinine Ratio (8-20) Glucose (70-100) mg/dL POC Glucose (mg/dL) 92 (74-106) mg/dL Hemoglobin A1c 5.9 (Less than 6.0) % Lactic Acid (0.5-2.0) mmol/L Uric Acid (4.4-7.6) mg/dL Calcium (8.6-10.3) mg/dL Total Bilirubin (0.2-1.0) mg/dL AST (13-39) U/L ALT (7-52) U/L Alkaline Phosphatase (34-104) U/L Total Creatine Kinase (10-223) U/L C-Reactive Protein (< 5.00) mg/L Total Protein (6.4-8.9) g/dL Albumin (3.2-5.2) g/dL Globulin (2-4) g/dL Albumin/Globulin Ratio (1-3) 12/30/16 12/30/16 Range/Units 05:19 07:51 WBC (3.5-10.8) 10^3/ul RBC (4.0-5.4) 10^6/ul Hgb (14.0-18.0) g/dl Hct (42-52) % MCV (80-94) fL MCH (27-31) pg MCHC (31-36) g/dl RDW (10.5-15) % Plt Count (150-450) 10^3/ul MPV (7.4-10.4) um3 Neut % (Auto) (38-83) % Lymph % (Auto) (25-47) % [place] % (Auto) (1-9) % Eos % (Auto) (0-6) % Baso % (Auto) (0-2) % Absolute Neuts (auto) (1.5-7.7) 10^3/ul Absolute Lymphs (auto) (1.0-4.8) 10^3/ul Absolute Monos (auto) (0-0.8) 10^3/ul Absolute Eos (auto) (0-0.6) 10^3/ul Absolute Basos (auto) (0-0.2) 10^3/ul Absolute Nucleated RBC 10^3/ul Nucleated RBC % Sodium 132 L (133-145) mmol/L Potassium 4.0 (3.5-5.0) mmol/L Chloride 105 (101-111) mmol/L Carbon Dioxide 22 (22-32) mmol/L Anion Gap 5 (2-11) mmol/L BUN 43 H (6-24) mg/dL Creatinine 2.82 H (0.67-1.17) mg/dL Est GFR ( Amer) 29.6 (>60) Est GFR (Non-Af Amer) 23.0 (>60) BUN/Creatinine Ratio 15.2 (8-20) Glucose 86 (70-100) mg/dL POC Glucose (mg/dL) 117 H (74-106) mg/dL Hemoglobin A1c (Less than 6.0) % Lactic Acid (0.5-2.0) mmol/L Uric Acid 9.9 H (4.4-7.6) mg/dL Calcium 8.4 L (8.6-10.3) mg/dL Total Bilirubin (0.2-1.0) mg/dL AST (13-39) U/L ALT (7-52) U/L Alkaline Phosphatase (34-104) U/L Total Creatine Kinase 48 (10-223) U/L C-Reactive Protein 69.13 H (< 5.00) mg/L Total Protein (6.4-8.9) g/dL Albumin (3.2-5.2) g/dL Globulin (2-4) g/dL Albumin/Globulin Ratio (1-3) Diagnostic Imaging: Doppler RUE: No sonographic evidence of DVT RUE CT: extensive cellulitis, potential olecranon bursitis with calcified loose bodies. No compelling CT evidence for presence of a loculated soft tissue plane abscess collection. RUE MRI: findings most consistent with cellulitis and fascitis. No evidence for abscess. Small effusion within the elbow joint. XR of right hand, forearm, elbow: unremarkable R hand. No fx of right forearm present. Diffuse soft tissue swelling about the elbow, extending into the forearm; no fracture or foreign body of elbow. Assess/Plan/Problems-Billing Assessment: Mr. Carrillo is a 61 yo male with a PMH of HTN, HLD, DM, anxiety, and gout who presented to the ED on 12/29 with concern for dizziness, nausea, RUE edema and pain and diagnosed with RUE cellulitis s/p recent [facility]. - Patient Problems (1) Cellulitis of right upper extremity Comment: - Yesterday pt had worsening right hand edema and rising CRP. Essentially unchanged today. - MRI of upper extremity continues to only show cellulitis and fascitis without fluid collection. - Appreciate ID consult. Continue ceftriaxone and vancomycin. - Appreciate Ortho consult. Encourage extremity elevation and ice packs to hand. (2) Acute kidney injury Comment: - Resolved. - Acute on chronic kidney disease, stage 3. Suspect secondary to dehydration and Bactrim. (3) Diabetes Comment: - BGs well controlled. HgbA1c 5.9. - Continue FSBG with Lispro SSI. - Resume home metformin at discharge. (4) HTN (hypertension) Comment: - SBP 140-150s. - Continue increased dose of metoprolol and continue home amlodipine. (5) HLD (hyperlipidemia) Comment: - Total cholesterol 185. - Continue atorvastatin. (6) DVT prophylaxis Comment: - SQ heparin. (7) Full code status Status and Disposition: Inpatient. Extended LOS for infection and need for IV abx. Anticipate discharge to home when medically stable.
[2017-01-04] MEDS: Vancomycin(*) 750 MG in NS 0.9% 250 ML* 250 ML IVPB SCH (11:37)
[2017-01-04] MEDS: amLODIPine TAB* 5 MG PO SCH (11:45)
[2017-01-04] MEDS: Docusate CAP* 100 MG PO PRN (12:10)
[2017-01-04] MEDS: Polyethylene Glycol 3350* 17 GM PACKET PO PRN (12:10)
[2017-01-04] MEDS: cefTRIAXone VIAL(*) 1,000 MG in NS 0.9% 50 ML* 50 ML IVPB SCH (12:11)
[2017-01-04] MEDS ORDERED: Senna TAB PO PRN (21:00)
[2017-01-05] MEDS: Heparin VIAL(*) 5000 UNITS/ML VIAL (FIVE THOUSAND) SUBCUT SCH ×4 (00:51→22:43)
[2017-01-05 05:42] LABS: EGFR African American 61.9 (>60); EGFR Non-African American 48.1 (>60)
[2017-01-05] MEDS: Vancomycin(*) 500 MG in NS 0.9% 250 ML* 250 ML IVPB SCH ×2 (06:53→17:59)
--- NOTE | 2017-01-05 08:08 | PN ---
Subjective Date of Service: 01/05/17 Interval History: Mr. Carrillo reports that his right hand was very painful this morning but it is much better after pain medication. He concurs that his hand seems a bit less swollen today. He denies chest pain, SOB, nausea, or abdominal pain. Family History: Unchanged from Admission Social History: Unchanged from Admission Past Medical History: Unchanged from Admission Objective Active Medications: Acetaminophen (Tylenol Tab*) 650 mg PO Q4H PRN Amlodipine Besylate (Norvasc Tab*) 10 mg PO DAILY AMY Aspirin (Aspirin Ec Low Dose*) 81 mg PO DAILY AMY Atorvastatin Calcium (Lipitor*) 80 mg PO DAILY AMY Cyclobenzaprine HCl (Flexeril Tab*) 10 mg PO BID PRN Dextrose (D50w Syringe 50 Ml*) 12.5 gm IV PUSH .FOR FS < 60 - SS PRN Docusate Sodium (Colace Cap*) 100 mg PO DAILY PRN Heparin Sodium (Porcine) (Heparin Vial(*)) 5,000 units SUBCUT Q8HR AMY Ceftriaxone Sodium 1,000 mg/ (Sodium Chloride) 50 mls @ 200 mls/hr IVPB Q24H AMY Vancomycin HCl 500 mg/ Sodium (Chloride) 250 mls @ 166.667 mls/hr IVPB Q12H AMY Insulin Human Lispro (Humalog*) 0 units SUBCUT AC AMY Metoprolol Succinate (Toprol Xl Tab*) 50 mg PO BID AMY Ondansetron HCl (Zofran Inj*) 4 mg IV Q6H PRN Oxycodone/Acetaminophen (Percocet 5/325 Tab*) 1 tab PO Q4H PRN Pharmacy Consult (Vancomycin Per Pharmacy*) 1 note FOLLOW UP . PRN Pharmacy Profile Note (Vancomycin Trough Check) 1 note FOLLOW UP 0530 ONE Polyethylene Glycol/Electrolytes (Miralax*) 17 gm PO DAILY PRN Senna (Senokot Tab*) 1 tab PO BEDTIME PRN Vital Signs 01/04/17 01/04/17 01/04/17 09:23 11:23 11:47 Temperature 98.1 F Pulse Rate 57 Respiratory 16 16 16 Rate Blood Pressure 140/67 (mmHg) O2 Sat by Pulse 100 Oximetry 01/04/17 01/04/17 01/04/17 16:26 18:03 19:34 Temperature 97.6 F Pulse Rate 59 Respiratory 16 16 16 Rate Blood Pressure 156/72 (mmHg) O2 Sat by Pulse 99 Oximetry 01/04/17 01/04/17 01/04/17 19:38 19:40 20:34 Temperature 98.1 F Pulse Rate 58 Respiratory 16 16 16 Rate Blood Pressure 154/70 (mmHg) O2 Sat by Pulse 98 Oximetry 01/04/17 01/05/17 01/05/17 23:24 03:36 07:16 Temperature 97.9 F 98.0 F 97.5 F Pulse Rate 57 65 63 Respiratory 16 16 16 Rate Blood Pressure 144/53 160/80 159/74 (mmHg) O2 Sat by Pulse 95 98 99 Oximetry Oxygen Devices in Use Now: None Appearance: Male sitting up in chair in NAD Eyes: No Scleral Icterus Ears/Nose/Mouth/Throat: Mucous Membranes Moist Neck: Trachea Midline Respiratory: Symmetrical Chest Expansion and Respiratory Effort, Clear to Auscultation Cardiovascular: NL Sounds; No Murmurs; No JVD Abdominal: NL Sounds; No Tenderness; No Distention Lymphatic: No Cervical Adenopathy Extremities: - - Right hand less swollen than yesterday, skin intact, ROM limited by pain Skin: No Rash or Ulcers Neurological: Alert and Oriented x 3, NL Muscle Strength and Tone Nutrition: Taking PO's Result Diagrams: 01/03/17 05:12 01/05/17 04:59 Additional Lab and Data: Lab Results 12/29/16 12/29/16 12/29/16 Range/Units 11:15 11:15 11:15 WBC 9.0 (3.5-10.8) 10^3/ul RBC 4.05 (4.0-5.4) 10^6/ul Hgb 11.2 L (14.0-18.0) g/dl Hct 33 L (42-52) % MCV 82 (80-94) fL MCH 28 (27-31) pg MCHC 34 (31-36) g/dl RDW 13 (10.5-15) % Plt Count 242 (150-450) 10^3/ul MPV 8 (7.4-10.4) um3 Neut % (Auto) 75.0 (38-83) % Lymph % (Auto) 11.9 L (25-47) % [place] % (Auto) 10.4 H (1-9) % Eos % (Auto) 1.7 (0-6) % Baso % (Auto) 1.0 (0-2) % Absolute Neuts (auto) 6.8 (1.5-7.7) 10^3/ul Absolute Lymphs (auto) 1.1 (1.0-4.8) 10^3/ul Absolute Monos (auto) 0.9 H (0-0.8) 10^3/ul Absolute Eos (auto) 0.2 (0-0.6) 10^3/ul Absolute Basos (auto) 0.1 (0-0.2) 10^3/ul Absolute Nucleated RBC 0.01 10^3/ul Nucleated RBC % 0.1 Sodium 132 L (133-145) mmol/L Potassium 4.3 (3.5-5.0) mmol/L Chloride 100 L (101-111) mmol/L Carbon Dioxide 22 (22-32) mmol/L Anion Gap 10 (2-11) mmol/L BUN 46 H (6-24) mg/dL Creatinine 3.26 H (0.67-1.17) mg/dL Est GFR ( Amer) 25.1 (>60) Est GFR (Non-Af Amer) 19.5 (>60) BUN/Creatinine Ratio 14.1 (8-20) Glucose 104 H (70-100) mg/dL POC Glucose (mg/dL) (74-106) mg/dL Hemoglobin A1c (Less than 6.0) % Lactic Acid 1.1 (0.5-2.0) mmol/L Uric Acid (4.4-7.6) mg/dL Calcium 8.5 L (8.6-10.3) mg/dL Total Bilirubin 0.30 (0.2-1.0) mg/dL AST 11 L (13-39) U/L ALT 9 (7-52) U/L Alkaline Phosphatase 52 (34-104) U/L Total Creatine Kinase (10-223) U/L C-Reactive Protein 98.19 H (< 5.00) mg/L Total Protein 7.4 (6.4-8.9) g/dL Albumin 3.4 (3.2-5.2) g/dL Globulin 4.0 (2-4) g/dL Albumin/Globulin Ratio 0.9 L (1-3) 12/29/16 12/29/1612/30/17 Range/Units 11:15 17:18 05:19 WBC 7.8 (3.5-10.8) 10^3/ul RBC 3.98 L (4.0-5.4) 10^6/ul Hgb 11.2 L (14.0-18.0) g/dl Hct 33 L (42-52) % MCV 82 (80-94) fL MCH 28 (27-31) pg MCHC 34 (31-36) g/dl RDW 13 (10.5-15) % Plt Count 244 (150-450) 10^3/ul MPV 9 (7.4-10.4) um3 Neut % (Auto) 70.8 (38-83) % Lymph % (Auto) 17.0 L (25-47) % [place] % (Auto) 9.4 H (1-9) % Eos % (Auto) 1.8 (0-6) % Baso % (Auto) 1.0 (0-2) % Absolute Neuts (auto) 5.5 (1.5-7.7) 10^3/ul Absolute Lymphs (auto) 1.3 (1.0-4.8) 10^3/ul Absolute Monos (auto) 0.7 (0-0.8) 10^3/ul Absolute Eos (auto) 0.1 (0-0.6) 10^3/ul Absolute Basos (auto) 0.1 (0-0.2) 10^3/ul Absolute Nucleated RBC 0 10^3/ul Nucleated RBC % 0 Sodium (133-145) mmol/L Potassium (3.5-5.0) mmol/L Chloride (101-111) mmol/L Carbon Dioxide (22-32) mmol/L Anion Gap (2-11) mmol/L BUN (6-24) mg/dL Creatinine (0.67-1.17) mg/dL Est GFR ( Amer) (>60) Est GFR (Non-Af Amer) (>60) BUN/Creatinine Ratio (8-20) Glucose (70-100) mg/dL POC Glucose (mg/dL) 92 (74-106) mg/dL Hemoglobin A1c 5.9 (Less than 6.0) % Lactic Acid (0.5-2.0) mmol/L Uric Acid (4.4-7.6) mg/dL Calcium (8.6-10.3) mg/dL Total Bilirubin (0.2-1.0) mg/dL AST (13-39) U/L ALT (7-52) U/L Alkaline Phosphatase (34-104) U/L Total Creatine Kinase (10-223) U/L C-Reactive Protein (< 5.00) mg/L Total Protein (6.4-8.9) g/dL Albumin (3.2-5.2) g/dL Globulin (2-4) g/dL Albumin/Globulin Ratio (1-3) 12/30/16 12/30/16 Range/Units 05:19 07:51 WBC (3.5-10.8) 10^3/ul RBC (4.0-5.4) 10^6/ul Hgb (14.0-18.0) g/dl Hct (42-52) % MCV (80-94) fL MCH (27-31) pg MCHC (31-36) g/dl RDW (10.5-15) % Plt Count (150-450) 10^3/ul MPV (7.4-10.4) um3 Neut % (Auto) (38-83) % Lymph % (Auto) (25-47) % [place] % (Auto) (1-9) % Eos % (Auto) (0-6) % Baso % (Auto) (0-2) % Absolute Neuts (auto) (1.5-7.7) 10^3/ul Absolute Lymphs (auto) (1.0-4.8) 10^3/ul Absolute Monos (auto) (0-0.8) 10^3/ul Absolute Eos (auto) (0-0.6) 10^3/ul Absolute Basos (auto) (0-0.2) 10^3/ul Absolute Nucleated RBC 10^3/ul Nucleated RBC % Sodium 132 L (133-145) mmol/L Potassium 4.0 (3.5-5.0) mmol/L Chloride 105 (101-111) mmol/L Carbon Dioxide 22 (22-32) mmol/L Anion Gap 5 (2-11) mmol/L BUN 43 H (6-24) mg/dL Creatinine 2.82 H (0.67-1.17) mg/dL Est GFR ( Amer) 29.6 (>60) Est GFR (Non-Af Amer) 23.0 (>60) BUN/Creatinine Ratio 15.2 (8-20) Glucose 86 (70-100) mg/dL POC Glucose (mg/dL) 117 H (74-106) mg/dL Hemoglobin A1c (Less than 6.0) % Lactic Acid (0.5-2.0) mmol/L Uric Acid 9.9 H (4.4-7.6) mg/dL Calcium 8.4 L (8.6-10.3) mg/dL Total Bilirubin (0.2-1.0) mg/dL AST (13-39) U/L ALT (7-52) U/L Alkaline Phosphatase (34-104) U/L Total Creatine Kinase 48 (10-223) U/L C-Reactive Protein 69.13 H (< 5.00) mg/L Total Protein (6.4-8.9) g/dL Albumin (3.2-5.2) g/dL Globulin (2-4) g/dL Albumin/Globulin Ratio (1-3) Diagnostic Imaging: Doppler RUE: No sonographic evidence of DVT RUE CT: extensive cellulitis, potential olecranon bursitis with calcified loose bodies. No compelling CT evidence for presence of a loculated soft tissue plane abscess collection. RUE MRI: findings most consistent with cellulitis and fascitis. No evidence for abscess. Small effusion within the elbow joint. XR of right hand, forearm, elbow: unremarkable R hand. No fx of right forearm present. Diffuse soft tissue swelling about the elbow, extending into the forearm; no fracture or foreign body of elbow. Assess/Plan/Problems-Billing Assessment: Mr. Carrillo is a 61 yo male with a PMH of HTN, HLD, DM, anxiety, and gout who presented to the ED on 12/29 with concern for dizziness, nausea, RUE edema and pain and diagnosed with RUE cellulitis s/p [facility]. - Patient Problems (1) Cellulitis of right upper extremity Comment: - Hand swelling decreased today. - MRI of upper extremity continues to only show cellulitis and fascitis without fluid collection. - Appreciate ID consult. Continue ceftriaxone and vancomycin. - Appreciate Ortho consult. Encourage extremity elevation and ice packs to hand. (2) Acute kidney injury Comment: - Resolved. - Acute on chronic kidney disease, stage 3. Suspect secondary to dehydration and Bactrim. (3) Diabetes Comment: - BGs well controlled. HgbA1c 5.9. - Continue FSBG with Lispro SSI. - Resume home metformin at discharge. (4) HTN (hypertension) Comment: - SBP 140-150s. - Continue increased dose of metoprolol and continue home amlodipine. (5) HLD (hyperlipidemia) Comment: - Total cholesterol 185. - Continue atorvastatin. (6) DVT prophylaxis Comment: - SQ heparin. (7) Full code status Status and Disposition: Inpatient. Extended LOS for infection and need for IV abx. Anticipate discharge to home when medically stable.
[2017-01-05] MEDS: Metoprolol Succinate XL TAB* 50 MG PO SCH ×2 (08:29→19:56)
[2017-01-05] MEDS: Aspirin EC Low Dose* 81 MG TAB.EC PO SCH (08:29)
[2017-01-05] MEDS: amLODIPine TAB* 5 MG PO SCH (08:29)
[2017-01-05] MEDS: Atorvastatin* 80 MG TAB PO SCH (08:30)
[2017-01-05] MEDS: Insulin LISPRO* 1 UNITS UNIT SUBCUT SCH ×3 (08:31→17:14)
[2017-01-05] MEDS: oxyCODONE/Acetamin 5/325 MG* TAB PO PRN ×2 (08:31→16:35)
[2017-01-05] MEDS: Docusate CAP* 100 MG PO PRN (08:31)
[2017-01-05] MEDS: Polyethylene Glycol 3350* 17 GM PACKET PO PRN (08:34)
[2017-01-05] MEDS: cefTRIAXone VIAL(*) 1,000 MG in NS 0.9% 50 ML* 50 ML IVPB SCH (12:43)
[2017-01-06] MEDS: oxyCODONE/Acetamin 5/325 MG* TAB PO PRN ×3 (04:57→21:51)
[2017-01-06] MEDS: Heparin VIAL(*) 5000 UNITS/ML VIAL (FIVE THOUSAND) SUBCUT SCH ×3 (04:58→21:51)
[2017-01-06] MEDS: Vancomycin(*) 500 MG in NS 0.9% 250 ML* 250 ML IVPB SCH ×2 (04:59→17:30)
[2017-01-06 07:06] LABS: EGFR African American 62.8 (>60); EGFR Non-African American 48.9 (>60)
[2017-01-06] MEDS: Insulin LISPRO* 1 UNITS UNIT SUBCUT SCH ×3 (07:40→17:31)
[2017-01-06] MEDS: Aspirin EC Low Dose* 81 MG TAB.EC PO SCH (07:52)
[2017-01-06] MEDS: Atorvastatin* 80 MG TAB PO SCH (07:52)
[2017-01-06] MEDS: amLODIPine TAB* 5 MG PO SCH (07:52)
[2017-01-06] MEDS: Metoprolol Succinate XL TAB* 50 MG PO SCH ×2 (07:52→21:51)
--- NOTE | 2017-01-06 08:46 | PN ---
Subjective Date of Service: 01/06/17 Interval History: Mr. Carrillo feels that the pain and swelling to his right hand are essentially unchanged. He denies other complaint including chest pain, SOB, nausea, or abdominal pain. Family History: Unchanged from Admission Social History: Unchanged from Admission Past Medical History: Unchanged from Admission Objective Active Medications: Acetaminophen (Tylenol Tab*) 650 mg PO Q4H PRN Amlodipine Besylate (Norvasc Tab*) 10 mg PO DAILY AMY Aspirin (Aspirin Ec Low Dose*) 81 mg PO DAILY AMY Atorvastatin Calcium (Lipitor*) 80 mg PO DAILY AMY Cyclobenzaprine HCl (Flexeril Tab*) 10 mg PO BID PRN Dextrose (D50w Syringe 50 Ml*) 12.5 gm IV PUSH .FOR FS < 60 - SS PRN Docusate Sodium (Colace Cap*) 100 mg PO DAILY PRN Heparin Sodium (Porcine) (Heparin Vial(*)) 5,000 units SUBCUT Q8HR AMY Ceftriaxone Sodium 1,000 mg/ (Sodium Chloride) 50 mls @ 200 mls/hr IVPB Q24H AMY Vancomycin HCl 500 mg/ Sodium (Chloride) 250 mls @ 166.667 mls/hr IVPB Q12H AMY Insulin Human Lispro (Humalog*) 0 units SUBCUT AC AMY Metoprolol Succinate (Toprol Xl Tab*) 50 mg PO BID AMY Ondansetron HCl (Zofran Inj*) 4 mg IV Q6H PRN Oxycodone/Acetaminophen (Percocet 5/325 Tab*) 1 tab PO Q4H PRN Pharmacy Consult (Vancomycin Per Pharmacy*) 1 note FOLLOW UP . PRN Pharmacy Profile Note (Vancomycin Trough Check) 1 note FOLLOW UP 0530 ONE Polyethylene Glycol/Electrolytes (Miralax*) 17 gm PO DAILY PRN Senna (Senokot Tab*) 1 tab PO BEDTIME PRN Vital Signs 01/05/17 01/05/17 01/05/17 10:31 11:48 15:35 Temperature 98.1 F 97.7 F Pulse Rate 56 63 Respiratory 16 16 17 Rate Blood Pressure 150/72 197/88 (mmHg) O2 Sat by Pulse 99 99 Oximetry 01/05/17 01/05/17 01/05/17 16:35 18:35 20:00 Temperature Pulse Rate Respiratory 16 18 18 Rate Blood Pressure (mmHg) O2 Sat by Pulse Oximetry 01/05/17 01/05/17 01/05/17 20:33 20:35 23:31 Temperature 98.2 F Pulse Rate 61 66 Respiratory 18 18 Rate Blood Pressure 158/70 161/68 (mmHg) O2 Sat by Pulse 100 96 Oximetry 01/06/17 01/06/17 01/06/17 03:42 04:57 06:57 Temperature 98.0 F Pulse Rate 71 Respiratory 16 16 16 Rate Blood Pressure 149/64 (mmHg) O2 Sat by Pulse 98 Oximetry 01/06/17 07:47 Temperature 97.6 F Pulse Rate 58 Respiratory 18 Rate Blood Pressure 155/78 (mmHg) O2 Sat by Pulse 99 Oximetry Oxygen Devices in Use Now: None Appearance: Male sitting up in chair in NAD Eyes: No Scleral Icterus Ears/Nose/Mouth/Throat: Mucous Membranes Moist Neck: Trachea Midline Respiratory: Symmetrical Chest Expansion and Respiratory Effort, Clear to Auscultation Cardiovascular: NL Sounds; No Murmurs; No JVD Abdominal: NL Sounds; No Tenderness; No Distention Extremities: - - Right hand swelling unchanged, ROM unchanged Skin: No Rash or Ulcers Neurological: Alert and Oriented x 3, NL Muscle Strength and Tone Nutrition: Taking PO's Result Diagrams: 01/03/17 05:12 01/06/17 06:29 Additional Lab and Data: Lab Results 12/29/16 12/29/16 12/29/16 Range/Units 11:15 11:15 11:15 WBC 9.0 (3.5-10.8) 10^3/ul RBC 4.05 (4.0-5.4) 10^6/ul Hgb 11.2 L (14.0-18.0) g/dl Hct 33 L (42-52) % MCV 82 (80-94) fL MCH 28 (27-31) pg MCHC 34 (31-36) g/dl RDW 13 (10.5-15) % Plt Count 242 (150-450) 10^3/ul MPV 8 (7.4-10.4) um3 Neut % (Auto) 75.0 (38-83) % Lymph % (Auto) 11.9 L (25-47) % [place] % (Auto) 10.4 H (1-9) % Eos % (Auto) 1.7 (0-6) % Baso % (Auto) 1.0 (0-2) % Absolute Neuts (auto) 6.8 (1.5-7.7) 10^3/ul Absolute Lymphs (auto) 1.1 (1.0-4.8) 10^3/ul Absolute Monos (auto) 0.9 H (0-0.8) 10^3/ul Absolute Eos (auto) 0.2 (0-0.6) 10^3/ul Absolute Basos (auto) 0.1 (0-0.2) 10^3/ul Absolute Nucleated RBC 0.01 10^3/ul Nucleated RBC % 0.1 Sodium 132 L (133-145) mmol/L Potassium 4.3 (3.5-5.0) mmol/L Chloride 100 L (101-111) mmol/L Carbon Dioxide 22 (22-32) mmol/L Anion Gap 10 (2-11) mmol/L BUN 46 H (6-24) mg/dL Creatinine 3.26 H (0.67-1.17) mg/dL Est GFR ( Amer) 25.1 (>60) Est GFR (Non-Af Amer) 19.5 (>60) BUN/Creatinine Ratio 14.1 (8-20) Glucose 104 H (70-100) mg/dL POC Glucose (mg/dL) (74-106) mg/dL Hemoglobin A1c (Less than 6.0) % Lactic Acid 1.1 (0.5-2.0) mmol/L Uric Acid (4.4-7.6) mg/dL Calcium 8.5 L (8.6-10.3) mg/dL Total Bilirubin 0.30 (0.2-1.0) mg/dL AST 11 L (13-39) U/L ALT 9 (7-52) U/L Alkaline Phosphatase 52 (34-104) U/L Total Creatine Kinase (10-223) U/L C-Reactive Protein 98.19 H (< 5.00) mg/L Total Protein 7.4 (6.4-8.9) g/dL Albumin 3.4 (3.2-5.2) g/dL Globulin 4.0 (2-4) g/dL Albumin/Globulin Ratio 0.9 L (1-3) 06/18/17 06/18/17 06/19/17 Range/Units 11:15 17:18 05:19 WBC 7.8 (3.5-10.8) 10^3/ul RBC 3.98 L (4.0-5.4) 10^6/ul Hgb 11.2 L (14.0-18.0) g/dl Hct 33 L (42-52) % MCV 82 (80-94) fL MCH 28 (27-31) pg MCHC 34 (31-36) g/dl RDW 13 (10.5-15) % Plt Count 244 (150-450) 10^3/ul MPV 9 (7.4-10.4) um3 Neut % (Auto) 70.8 (38-83) % Lymph % (Auto) 17.0 L (25-47) % [place] % (Auto) 9.4 H (1-9) % Eos % (Auto) 1.8 (0-6) % Baso % (Auto) 1.0 (0-2) % Absolute Neuts (auto) 5.5 (1.5-7.7) 10^3/ul Absolute Lymphs (auto) 1.3 (1.0-4.8) 10^3/ul Absolute Monos (auto) 0.7 (0-0.8) 10^3/ul Absolute Eos (auto) 0.1 (0-0.6) 10^3/ul Absolute Basos (auto) 0.1 (0-0.2) 10^3/ul Absolute Nucleated RBC 0 10^3/ul Nucleated RBC % 0 Sodium (133-145) mmol/L Potassium (3.5-5.0) mmol/L Chloride (101-111) mmol/L Carbon Dioxide (22-32) mmol/L Anion Gap (2-11) mmol/L BUN (6-24) mg/dL Creatinine (0.67-1.17) mg/dL Est GFR ( Amer) (>60) Est GFR (Non-Af Amer) (>60) BUN/Creatinine Ratio (8-20) Glucose (70-100) mg/dL POC Glucose (mg/dL) 92 (74-106) mg/dL Hemoglobin A1c 5.9 (Less than 6.0) % Lactic Acid (0.5-2.0) mmol/L Uric Acid (4.4-7.6) mg/dL Calcium (8.6-10.3) mg/dL Total Bilirubin (0.2-1.0) mg/dL AST (13-39) U/L ALT (7-52) U/L Alkaline Phosphatase (34-104) U/L Total Creatine Kinase (10-223) U/L C-Reactive Protein (< 5.00) mg/L Total Protein (6.4-8.9) g/dL Albumin (3.2-5.2) g/dL Globulin (2-4) g/dL Albumin/Globulin Ratio (1-3) 12/30/16 12/30/16 Range/Units 05:19 07:51 WBC (3.5-10.8) 10^3/ul RBC (4.0-5.4) 10^6/ul Hgb (14.0-18.0) g/dl Hct (42-52) % MCV (80-94) fL MCH (27-31) pg MCHC (31-36) g/dl RDW (10.5-15) % Plt Count (150-450) 10^3/ul MPV (7.4-10.4) um3 Neut % (Auto) (38-83) % Lymph % (Auto) (25-47) % [place] % (Auto) (1-9) % Eos % (Auto) (0-6) % Baso % (Auto) (0-2) % Absolute Neuts (auto) (1.5-7.7) 10^3/ul Absolute Lymphs (auto) (1.0-4.8) 10^3/ul Absolute Monos (auto) (0-0.8) 10^3/ul Absolute Eos (auto) (0-0.6) 10^3/ul Absolute Basos (auto) (0-0.2) 10^3/ul Absolute Nucleated RBC 10^3/ul Nucleated RBC % Sodium 132 L (133-145) mmol/L Potassium 4.0 (3.5-5.0) mmol/L Chloride 105 (101-111) mmol/L Carbon Dioxide 22 (22-32) mmol/L Anion Gap 5 (2-11) mmol/L BUN 43 H (6-24) mg/dL Creatinine 2.82 H (0.67-1.17) mg/dL Est GFR ( Amer) 29.6 (>60) Est GFR (Non-Af Amer) 23.0 (>60) BUN/Creatinine Ratio 15.2 (8-20) Glucose 86 (70-100) mg/dL POC Glucose (mg/dL) 117 H (74-106) mg/dL Hemoglobin A1c (Less than 6.0) % Lactic Acid (0.5-2.0) mmol/L Uric Acid 9.9 H (4.4-7.6) mg/dL Calcium 8.4 L (8.6-10.3) mg/dL Total Bilirubin (0.2-1.0) mg/dL AST (13-39) U/L ALT (7-52) U/L Alkaline Phosphatase (34-104) U/L Total Creatine Kinase 48 (10-223) U/L C-Reactive Protein 69.13 H (< 5.00) mg/L Total Protein (6.4-8.9) g/dL Albumin (3.2-5.2) g/dL Globulin (2-4) g/dL Albumin/Globulin Ratio (1-3) Diagnostic Imaging: Doppler RUE: No sonographic evidence of DVT RUE CT: extensive cellulitis, potential olecranon bursitis with calcified loose bodies. No compelling CT evidence for presence of a loculated soft tissue plane abscess collection. RUE MRI: findings most consistent with cellulitis and fascitis. No evidence for abscess. Small effusion within the elbow joint. XR of right hand, forearm, elbow: unremarkable R hand. No fx of right forearm present. Diffuse soft tissue swelling about the elbow, extending into the forearm; no fracture or foreign body of elbow. Assess/Plan/Problems-Billing Assessment: Mr. Carrillo is a 61 yo male with a PMH of HTN, HLD, DM, anxiety, and gout who presented to the ED on 12/29 with concern for dizziness, nausea, RUE edema and pain and diagnosed with RUE cellulitis s/p [facility]. - Patient Problems (1) Cellulitis of right upper extremity Comment: - Hand swelling unchanged today. - MRI of upper extremity continues to only show cellulitis and fascitis without fluid collection. - Appreciate ID consult. Continue ceftriaxone and vancomycin. Question if perhaps patient could have gout attack given that his swelling are unchanged despite treatment. Patient has history of gout with significant hand swelling in the past, colchicine started. - Appreciate Ortho consult. Encourage extremity elevation and ice packs to hand. (2) Acute kidney injury Comment: - Resolved. - Acute on chronic kidney disease, stage 3. Suspect secondary to dehydration and Bactrim. (3) Diabetes Comment: - BGs well controlled. HgbA1c 5.9. - Continue FSBG with Lispro SSI. - Resume home metformin at discharge. (4) HTN (hypertension) Comment: - SBP 150-160s. - Increased dose of metoprolol again, continue max dose amlodipine. Patient has a severe allergy to lisinopril in the past. (5) HLD (hyperlipidemia) Comment: - Total cholesterol 185. - Continue atorvastatin. (6) DVT prophylaxis Comment: - SQ heparin. (7) Full code status Status and Disposition: Inpatient. Extended LOS for infection and need for IV abx. Anticipate discharge to home when medically stable.
[2017-01-06] MEDS ORDERED: Lisinopril TAB* 5 MG PO SCH (09:00)
[2017-01-06 10:04] LABS: C Reactive Protein 45.64 mg/L (< 5.00)
--- NOTE | 2017-01-06 11:06 | PN ---
Progress Note - Progress Note Date of Service: 01/06/17 SOAP: Subjective: []Patient seen OOB in chair. He still c/o pain in the MCP joint of the right hand, about the same the last couple of days. He has been trying to work on ROM of his hand and fingers. Objective: [] Vital Signs Temp 97.6 F 01/06/17 07:47 Pulse 58 01/06/17 07:47 Resp 18 01/06/17 08:00 BP 155/78 01/06/17 07:47 Pulse Ox 99 01/06/17 07:47 Intake & Output 01/05/17 01/06/17 01/06/17 18:59 06:59 18:59 Intake Total 1885 600 812 Balance 1885 600 812 Weight 230 lb 12.8 oz Intake: IVPB 385 ABX - CEFTRIAXONE 385 Oral 1500 600 812 Other: # Bowel Movements 1 Estimated Stool Amount Medium # Voids 1 Laboratory Results - last 24 hr 01/05/17 01/05/17 01/06/17 12:26 16:37 06:29 BUN 28 H Creatinine 1.47 H Est GFR ( Amer) 62.8 Est GFR (Non-Af Amer) 48.9 POC Glucose (mg/dL) 149 H 195 H C-Reactive Protein 45.64 H 01/06/17 07:33 BUN Creatinine Est GFR ( Amer) Est GFR (Non-Af Amer) POC Glucose (mg/dL) 88 C-Reactive Protein Right hand edematous dorsally with 1+ pitting. Remains tender to palpation over the 2nd MCP joint. Motion of this joint and the PIP joint of the second digit minimal. Less tenderness at IP joint of the thumb. Fairly good ROM 3- 5th digits. Sensation intact throughout. Assessment: []Cellulitis right hand ? gout MCP joint - uric acid elevated 9.9 on 12/30/16 Plan: []Currently on Vanco and ceftriaxone continue to encourage ROM hand and fingers Will follow
[2017-01-06] MEDS: cefTRIAXone VIAL(*) 1,000 MG in NS 0.9% 50 ML* 50 ML IVPB SCH (11:23)
--- NOTE | 2017-01-06 12:04 | PN ---
Progress Note - Progress Note Date of Service: 01/06/17 SOAP: Subjective: CC: hand pain HPI: 61 yo man with right arm and hand swelling a few days after phlebotomy. Elbow continues to improve. Right hand swollen, fingers less so. The 1st MCP is most painful. Hurts to move. Objective: [] Vital Signs Temp 36.4 C 01/06/17 07:47 Pulse 58 01/06/17 07:47 Resp 18 01/06/17 08:00 BP 155/78 01/06/17 07:47 Pulse Ox 99 01/06/17 07:47 Intake & Output 01/05/17 01/06/17 01/06/17 18:59 06:59 18:59 Intake Total 1885 600 812 Balance 1885 600 812 Weight 230 lb 12.8 oz Intake: IVPB 385 ABX - CEFTRIAXONE 385 Oral 1500 600 812 Other: # Bowel Movements 1 Estimated Stool Amount Medium # Voids 1 Gen:Awake, no distress HEENT:PERRL, MMM Neck:supple Heart:RRR no murmur Lungs:CTA BL Abd:+BS NTND soft Skin: no rash MSK: right elbow olecranon effusion, improved ROM with elbow flex/ext/pronation/ supination, no wrist pain with ROM or palpation. Diffuse dorsal hand edema, tender, on crepitus or fluctuance, diffuse finger edema which is non tender. Had gout in the past that seemed similar. Laboratory Results - last 24 hr 01/05/17 01/05/17 01/06/17 12:26 16:37 06:29 BUN 28 H Creatinine 1.47 H Est GFR ( Amer) 62.8 Est GFR (Non-Af Amer) 48.9 POC Glucose (mg/dL) 149 H 195 H C-Reactive Protein 45.64 H 01/06/17 01/06/17 07:33 11:27 BUN Creatinine Est GFR ( Amer) Est GFR (Non-Af Amer) POC Glucose (mg/dL) 88 112 H C-Reactive Protein Assessment: 1. Right arm infection; fasciitis and cellulitis; overall improving 2. Right hand cellulitis, worse today 3. elevated CRP 4. T2DM 5. gout 6. Acute kidney injury, resolved 7. CKD Plan: 1. continue vancomycin goal tr 15-20 and ceftriaxone. 2. Gout was raised by orthopedics; will add colchicine .6 po bid Discussed with Nancie Amaral NP
[2017-01-06] MEDS: Colchicine* 0.6 MG TAB PO SCH (21:51)
[2017-01-07] MEDS ORDERED: Vancomycin Trough Check NOTE FOLLOW UP ONE (05:30)
[2017-01-07] MEDS: oxyCODONE/Acetamin 5/325 MG* TAB PO PRN ×3 (05:59→21:54)
[2017-01-07] MEDS: Heparin VIAL(*) 5000 UNITS/ML VIAL (FIVE THOUSAND) SUBCUT SCH ×3 (05:59→21:55)
[2017-01-07 07:40] LABS: EGFR African American 59.1 (>60)
[2017-01-07] MEDS: Insulin LISPRO* 1 UNITS UNIT SUBCUT SCH ×3 (08:01→17:18)
[2017-01-07] MEDS: Vancomycin(*) 500 MG in NS 0.9% 250 ML* 250 ML IVPB SCH ×2 (08:08→21:53)
[2017-01-07] MEDS: Metoprolol Succinate XL TAB* 50 MG PO SCH ×2 (08:14→21:54)
[2017-01-07] MEDS: Atorvastatin* 80 MG TAB PO SCH (08:14)
[2017-01-07] MEDS: Colchicine* 0.6 MG TAB PO SCH ×2 (08:14→22:35)
[2017-01-07] MEDS: Aspirin EC Low Dose* 81 MG TAB.EC PO SCH (08:14)
[2017-01-07] MEDS: amLODIPine TAB* 5 MG PO SCH (08:14)
--- NOTE | 2017-01-07 10:51 | PN ---
Subjective Date of Service: 01/07/17 Interval History: Mr. Carrillo states that he is feeling well but doesn't think that the pain or swelling to his right hand has changed at all overnight. He denies other complaint including chest pain, SOB, nausea, or abdominal pain. Family History: Unchanged from Admission Social History: Unchanged from Admission Past Medical History: Unchanged from Admission Objective Active Medications: Acetaminophen (Tylenol Tab*) 650 mg PO Q4H PRN Amlodipine Besylate (Norvasc Tab*) 10 mg PO DAILY AMY Aspirin (Aspirin Ec Low Dose*) 81 mg PO DAILY AMY Atorvastatin Calcium (Lipitor*) 80 mg PO DAILY AMY Colchicine (Colcrys*) 0.6 mg PO BID AMY Cyclobenzaprine HCl (Flexeril Tab*) 10 mg PO BID PRN Dextrose (D50w Syringe 50 Ml*) 12.5 gm IV PUSH .FOR FS < 60 - SS PRN Docusate Sodium (Colace Cap*) 100 mg PO DAILY PRN Heparin Sodium (Porcine) (Heparin Vial(*)) 5,000 units SUBCUT Q8HR AMY Ceftriaxone Sodium 1,000 mg/ (Sodium Chloride) 50 mls @ 200 mls/hr IVPB Q24H AMY Vancomycin HCl 500 mg/ Sodium (Chloride) 250 mls @ 166.667 mls/hr IVPB Q12H AMY Insulin Human Lispro (Humalog*) 0 units SUBCUT AC AMY Metoprolol Succinate (Toprol Xl Tab*) 75 mg PO BID AMY Ondansetron HCl (Zofran Inj*) 4 mg IV Q6H PRN Oxycodone/Acetaminophen (Percocet 5/325 Tab*) 1 tab PO Q4H PRN Pharmacy Consult (Vancomycin Per Pharmacy*) 1 note FOLLOW UP . PRN Polyethylene Glycol/Electrolytes (Miralax*) 17 gm PO DAILY PRN Senna (Senokot Tab*) 1 tab PO BEDTIME PRN Vital Signs 01/06/17 01/06/17 01/06/17 15:32 16:12 18:12 Temperature 98.9 F Pulse Rate 60 Respiratory 18 16 18 Rate Blood Pressure 150/77 (mmHg) O2 Sat by Pulse 97 Oximetry 01/06/17 01/06/17 01/06/17 19:37 19:38 21:51 Temperature 97.7 F Pulse Rate 62 Respiratory 16 18 17 Rate Blood Pressure 173/75 (mmHg) O2 Sat by Pulse 99 Oximetry 01/06/17 01/07/17 01/07/17 23:51 03:48 05:59 Temperature 97.7 F 97.7 F Pulse Rate 57 59 Respiratory 18 16 14 Rate Blood Pressure 135/58 150/63 (mmHg) O2 Sat by Pulse 97 98 Oximetry 01/07/17 01/07/17 01/07/17 07:21 07:59 08:00 Temperature 97.3 F Pulse Rate 54 Respiratory 16 16 16 Rate Blood Pressure 140/69 (mmHg) O2 Sat by Pulse 100 Oximetry Oxygen Devices in Use Now: None Appearance: Male sitting up in chair in NAD Eyes: No Scleral Icterus Ears/Nose/Mouth/Throat: Mucous Membranes Moist Neck: Trachea Midline Respiratory: Symmetrical Chest Expansion and Respiratory Effort, Clear to Auscultation Cardiovascular: NL Sounds; No Murmurs; No JVD, No Edema Abdominal: NL Sounds; No Tenderness; No Distention Lymphatic: No Cervical Adenopathy Extremities: - - Persistent unchanged edema, ROM unchanged Skin: No Rash or Ulcers Neurological: Alert and Oriented x 3, NL Muscle Strength and Tone Nutrition: Taking PO's Result Diagrams: 01/03/17 05:12 01/07/17 06:36 Additional Lab and Data: Lab Results 12/29/16 12/29/16 12/29/16 Range/Units 11:15 11:15 11:15 WBC 9.0 (3.5-10.8) 10^3/ul RBC 4.05 (4.0-5.4) 10^6/ul Hgb 11.2 L (14.0-18.0) g/dl Hct 33 L (42-52) % MCV 82 (80-94) fL MCH 28 (27-31) pg MCHC 34 (31-36) g/dl RDW 13 (10.5-15) % Plt Count 242 (150-450) 10^3/ul MPV 8 (7.4-10.4) um3 Neut % (Auto) 75.0 (38-83) % Lymph % (Auto) 11.9 L (25-47) % [place] % (Auto) 10.4 H (1-9) % Eos % (Auto) 1.7 (0-6) % Baso % (Auto) 1.0 (0-2) % Absolute Neuts (auto) 6.8 (1.5-7.7) 10^3/ul Absolute Lymphs (auto) 1.1 (1.0-4.8) 10^3/ul Absolute Monos (auto) 0.9 H (0-0.8) 10^3/ul Absolute Eos (auto) 0.2 (0-0.6) 10^3/ul Absolute Basos (auto) 0.1 (0-0.2) 10^3/ul Absolute Nucleated RBC 0.01 10^3/ul Nucleated RBC % 0.1 Sodium 132 L (133-145) mmol/L Potassium 4.3 (3.5-5.0) mmol/L Chloride 100 L (101-111) mmol/L Carbon Dioxide 22 (22-32) mmol/L Anion Gap 10 (2-11) mmol/L BUN 46 H (6-24) mg/dL Creatinine 3.26 H (0.67-1.17) mg/dL Est GFR ( Amer) 25.1 (>60) Est GFR (Non-Af Amer) 19.5 (>60) BUN/Creatinine Ratio 14.1 (8-20) Glucose 104 H (70-100) mg/dL POC Glucose (mg/dL) (74-106) mg/dL Hemoglobin A1c (Less than 6.0) % Lactic Acid 1.1 (0.5-2.0) mmol/L Uric Acid (4.4-7.6) mg/dL Calcium 8.5 L (8.6-10.3) mg/dL Total Bilirubin 0.30 (0.2-1.0) mg/dL AST 11 L (13-39) U/L ALT 9 (7-52) U/L Alkaline Phosphatase 52 (34-104) U/L Total Creatine Kinase (10-223) U/L C-Reactive Protein 98.19 H (< 5.00) mg/L Total Protein 7.4 (6.4-8.9) g/dL Albumin 3.4 (3.2-5.2) g/dL Globulin 4.0 (2-4) g/dL Albumin/Globulin Ratio 0.9 L (1-3) 12/29/16 12/29/16 12/30/16 Range/Units 11:15 17:18 05:19 WBC 7.8 (3.5-10.8) 10^3/ul RBC 3.98 L (4.0-5.4) 10^6/ul Hgb 11.2 L (14.0-18.0) g/dl Hct 33 L (42-52) % MCV 82 (80-94) fL MCH 28 (27-31) pg MCHC 34 (31-36) g/dl RDW 13 (10.5-15) % Plt Count 244 (150-450) 10^3/ul MPV 9 (7.4-10.4) um3 Neut % (Auto) 70.8 (38-83) % Lymph % (Auto) 17.0 L (25-47) % [place] % (Auto) 9.4 H (1-9) % Eos % (Auto) 1.8 (0-6) % Baso % (Auto) 1.0 (0-2) % Absolute Neuts (auto) 5.5 (1.5-7.7) 10^3/ul Absolute Lymphs (auto) 1.3 (1.0-4.8) 10^3/ul Absolute Monos (auto) 0.7 (0-0.8) 10^3/ul Absolute Eos (auto) 0.1 (0-0.6) 10^3/ul Absolute Basos (auto) 0.1 (0-0.2) 10^3/ul Absolute Nucleated RBC 0 10^3/ul Nucleated RBC % 0 Sodium (133-145) mmol/L Potassium (3.5-5.0) mmol/L Chloride (101-111) mmol/L Carbon Dioxide (22-32) mmol/L Anion Gap (2-11) mmol/L BUN (6-24) mg/dL Creatinine (0.67-1.17) mg/dL Est GFR ( Amer) (>60) Est GFR (Non-Af Amer) (>60) BUN/Creatinine Ratio (8-20) Glucose (70-100) mg/dL POC Glucose (mg/dL) 92 (74-106) mg/dL Hemoglobin A1c 5.9 (Less than 6.0) % Lactic Acid (0.5-2.0) mmol/L Uric Acid (4.4-7.6) mg/dL Calcium (8.6-10.3) mg/dL Total Bilirubin (0.2-1.0) mg/dL AST (13-39) U/L ALT (7-52) U/L Alkaline Phosphatase (34-104) U/L Total Creatine Kinase (10-223) U/L C-Reactive Protein (< 5.00) mg/L Total Protein (6.4-8.9) g/dL Albumin (3.2-5.2) g/dL Globulin (2-4) g/dL Albumin/Globulin Ratio (1-3) 12/30/16 12/30/16 Range/Units 05:19 07:51 WBC (3.5-10.8) 10^3/ul RBC (4.0-5.4) 10^6/ul Hgb (14.0-18.0) g/dl Hct (42-52) % MCV (80-94) fL MCH (27-31) pg MCHC (31-36) g/dl RDW (10.5-15) % Plt Count (150-450) 10^3/ul MPV (7.4-10.4) um3 Neut % (Auto) (38-83) % Lymph % (Auto) (25-47) % [place] % (Auto) (1-9) % Eos % (Auto) (0-6) % Baso % (Auto) (0-2) % Absolute Neuts (auto) (1.5-7.7) 10^3/ul Absolute Lymphs (auto) (1.0-4.8) 10^3/ul Absolute Monos (auto) (0-0.8) 10^3/ul Absolute Eos (auto) (0-0.6) 10^3/ul Absolute Basos (auto) (0-0.2) 10^3/ul Absolute Nucleated RBC 10^3/ul Nucleated RBC % Sodium 132 L (133-145) mmol/L Potassium 4.0 (3.5-5.0) mmol/L Chloride 105 (101-111) mmol/L Carbon Dioxide 22 (22-32) mmol/L Anion Gap 5 (2-11) mmol/L BUN 43 H (6-24) mg/dL Creatinine 2.82 H (0.67-1.17) mg/dL Est GFR ( Amer) 29.6 (>60) Est GFR (Non-Af Amer) 23.0 (>60) BUN/Creatinine Ratio 15.2 (8-20) Glucose 86 (70-100) mg/dL POC Glucose (mg/dL) 117 H (74-106) mg/dL Hemoglobin A1c (Less than 6.0) % Lactic Acid (0.5-2.0) mmol/L Uric Acid 9.9 H (4.4-7.6) mg/dL Calcium 8.4 L (8.6-10.3) mg/dL Total Bilirubin (0.2-1.0) mg/dL AST (13-39) U/L ALT (7-52) U/L Alkaline Phosphatase (34-104) U/L Total Creatine Kinase 48 (10-223) U/L C-Reactive Protein 69.13 H (< 5.00) mg/L Total Protein (6.4-8.9) g/dL Albumin (3.2-5.2) g/dL Globulin (2-4) g/dL Albumin/Globulin Ratio (1-3) Diagnostic Imaging: Doppler RUE: No sonographic evidence of DVT RUE CT: extensive cellulitis, potential olecranon bursitis with calcified loose bodies. No compelling CT evidence for presence of a loculated soft tissue plane abscess collection. RUE MRI: findings most consistent with cellulitis and fascitis. No evidence for abscess. Small effusion within the elbow joint. XR of right hand, forearm, elbow: unremarkable R hand. No fx of right forearm present. Diffuse soft tissue swelling about the elbow, extending into the forearm; no fracture or foreign body of elbow. Assess/Plan/Problems-Billing Assessment: Mr. Carrillo is a 61 yo male with a PMH of HTN, HLD, DM, anxiety, and gout who presented to the ED on 12/29 with concern for dizziness, nausea, RUE edema and pain and diagnosed with RUE cellulitis s/p [facility]. - Patient Problems (1) Cellulitis of right upper extremity Comment: - Hand swelling essentially unchanged. - MRI of upper extremity continues to only show cellulitis and fascitis without fluid collection. - Appreciate ID consult. Continue ceftriaxone and vancomycin. Question if perhaps patient could have gout attack given that his swelling are unchanged despite treatment. Patient has history of gout with significant hand swelling in the past, colchicine started. - Appreciate Ortho consult. Encourage extremity elevation and ice packs to hand. (2) Acute kidney injury Comment: - Resolved. - Acute on chronic kidney disease, stage 3. Suspect secondary to dehydration and Bactrim. (3) Diabetes Comment: - BGs well controlled. HgbA1c 5.9. - Continue FSBG with Lispro SSI. - Resume home metformin at discharge. (4) HTN (hypertension) Comment: - SBP now 140-150s. - Increased dose of metoprolol again, continue max dose amlodipine. Patient has a severe allergy to lisinopril in the past. (5) HLD (hyperlipidemia) Comment: - Total cholesterol 185. - Continue atorvastatin. (6) DVT prophylaxis Comment: - SQ heparin. (7) Full code status Status and Disposition: Inpatient. Extended LOS for infection and need for IV abx. Anticipate discharge to home when medically stable.
--- NOTE | 2017-01-07 11:31 | PN ---
Progress Note - Progress Note Date of Service: 01/07/17 SOAP: Subjective: [Pt reports minimal improvement R hand. Cont's to c/o most pain at 2nd MP joint. Pain 8/10 but managed by po meds. Using squeeze ball for ROM. Elevating and moving fingers as able.] Objective: [A and O x 3, NAD R hand with significant edema - pitting. Light erythema over 2 nd MP joint. TTP 2nd MP joint. Limited ROM index finger. Better motion in other fingers, thumb but increase pain with motion. Skin intact Vital Signs: Temp Pulse Resp BP Pulse Ox 97.3 F 54 16 140/69 100 01/07/17 07:21 01/07/17 07:21 01/07/17 08:00 01/07/17 07:21 01/07/17 07:21 Laboratory Results - last 24 hr 01/06/17 01/06/17 01/07/17 11:27 16:14 06:36 BUN Creatinine Est GFR ( Amer) Est GFR (Non-Af Amer) POC Glucose (mg/dL) 112 H 159 H Vancomycin Trough 15.5 01/07/17 01/07/17 06:36 07:52 BUN 29 H Creatinine 1.55 H Est GFR ( Amer) 59.1 Est GFR (Non-Af Amer) 46.0 POC Glucose (mg/dL) 78 Vancomycin Trough ] Assessment: [Cellulitis, ? gout R hand] Plan: [Con't abx per ID Colchicine per medicine Con't PT R hand - encourage ROM hand, fingers Will con't to follow]
[2017-01-07] MEDS: cefTRIAXone VIAL(*) 1,000 MG in NS 0.9% 50 ML* 50 ML IVPB SCH (14:07)
[2017-01-07] MEDS: Docusate CAP* 100 MG PO PRN (21:54)
[2017-01-08] MEDS: Heparin VIAL(*) 5000 UNITS/ML VIAL (FIVE THOUSAND) SUBCUT SCH (05:46)
[2017-01-08 05:48] LABS: BUN/Creatinine Ratio 22.5 (8-20); C Reactive Protein 28.14 mg/L (< 5.00); Calcium 8.5 mg/dL (8.6-10.3); EGFR African American 60.9 (>60); EGFR Non-African American 47.4 (>60); Potassium 5.1 mmol/L (3.5-5.0)
[2017-01-08] MEDS: oxyCODONE/Acetamin 5/325 MG* TAB PO PRN (05:50)
[2017-01-08 07:48] VITALS: BP 135/59
[2017-01-08] MEDS: Atorvastatin* 80 MG TAB PO SCH (08:47)
[2017-01-08] MEDS: Metoprolol Succinate XL TAB* 50 MG PO SCH (08:47)
[2017-01-08] MEDS: Aspirin EC Low Dose* 81 MG TAB.EC PO SCH (08:47)
[2017-01-08] MEDS: amLODIPine TAB* 5 MG PO SCH (08:47)
[2017-01-08] MEDS: Colchicine* 0.6 MG TAB PO SCH (08:47)
[2017-01-08] MEDS ORDERED: Vancomycin(*) 500 MG in NS 0.9% 250 ML* 250 ML IVPB SCH (09:00)
--- NOTE | 2017-01-08 09:44 | PN ---
Progress Note - Progress Note Date of Service: 01/08/17 SOAP: Subjective: CC: hand swelling HPI: 61 yo man with right arm and hand swelling. Elbow and wrist normal Right hand swollenand fingers less swollen. The 1st MCP less painful and pain with ROM resolved. Finger ROM improving. Objective: [] Laboratory Results - last 24 hr 01/07/17 01/07/17 01/08/17 12:30 16:53 05:22 Sodium 134 Potassium 5.1 H Chloride 107 Carbon Dioxide 22 Anion Gap 5 BUN 34 H Creatinine 1.51 H Est GFR ( Amer) 60.9 Est GFR (Non-Af Amer) 47.4 BUN/Creatinine Ratio 22.5 H Glucose 89 POC Glucose (mg/dL) 90 73 L Calcium 8.5 L C-Reactive Protein 28.14 H Gen:Awake, no distress HEENT:PERRL, MMM Neck:supple Heart:RRR no murmur Lungs:CTA BL Abd:+BS NTND soft Skin: no rash MSK: right elbow olecranon effusion, normal ROM with elbow flex/ext/pronation/ supination, no wrist pain with ROM or palpation. Diffuse dorsal hand edema, less tender 1st MCP; finger flexion decreased Assessment: 1. Right arm infection; fasciitis and cellulitis; overall improving 2. possible gout flair 3. elevated CRP, improving 4. T2DM 5. gout 6. CKD Plan: 1. change to doxycycline 100 mg po bid and cipro 500 mg po bid x10 more days, continue colchicine, fu with me and ortho. He agrees to retunr here if worsening pain, swelling, or decreased ability to move fingers 35 minutes floor time >50% face to face in counseling regarding treatment and symptoms to monitor for, need for close follow up, all questions answered. Discussed with Nancie Amaral NP
--- NOTE | 2017-01-08 10:00 | PN ---
Subjective Date of Service: 01/08/17 Interval History: Mr. Carrillo states that he is feeling good today. He feels that there is decreased pain and swelling to his right hand has decreased. He denies other complaint and is eager for discharge to home. Family History: Unchanged from Admission Social History: Unchanged from Admission Past Medical History: Unchanged from Admission Objective Active Medications: Acetaminophen (Tylenol Tab*) 650 mg PO Q4H PRN Amlodipine Besylate (Norvasc Tab*) 10 mg PO DAILY AMY Aspirin (Aspirin Ec Low Dose*) 81 mg PO DAILY AMY Atorvastatin Calcium (Lipitor*) 80 mg PO DAILY AMY Colchicine (Colcrys*) 0.6 mg PO BID AMY Cyclobenzaprine HCl (Flexeril Tab*) 10 mg PO BID PRN Dextrose (D50w Syringe 50 Ml*) 12.5 gm IV PUSH .FOR FS < 60 - SS PRN Docusate Sodium (Colace Cap*) 100 mg PO DAILY PRN Heparin Sodium (Porcine) (Heparin Vial(*)) 5,000 units SUBCUT Q8HR AMY Ceftriaxone Sodium 1,000 mg/ (Sodium Chloride) 50 mls @ 200 mls/hr IVPB Q24H AMY Vancomycin HCl 500 mg/ Sodium (Chloride) 250 mls @ 166.667 mls/hr IVPB 0900, 2100 AMY Metoprolol Succinate (Toprol Xl Tab*) 75 mg PO BID AMY Ondansetron HCl (Zofran Inj*) 4 mg IV Q6H PRN Oxycodone/Acetaminophen (Percocet 5/325 Tab*) 1 tab PO Q4H PRN Pharmacy Consult (Vancomycin Per Pharmacy*) 1 note FOLLOW UP . PRN Polyethylene Glycol/Electrolytes (Miralax*) 17 gm PO DAILY PRN Senna (Senokot Tab*) 1 tab PO BEDTIME PRN Vital Signs 01/07/17 01/07/17 01/07/17 15:46 15:59 17:59 Temperature 97.4 F Pulse Rate 59 Respiratory 16 16 18 Rate Blood Pressure 152/79 (mmHg) O2 Sat by Pulse 99 Oximetry 01/07/17 01/07/17 01/07/17 19:42 19:44 21:54 Temperature 98.0 F Pulse Rate 59 Respiratory 15 16 18 Rate Blood Pressure 143/70 (mmHg) O2 Sat by Pulse 97 Oximetry 01/07/17 01/07/1701/08/17 23:24 23:54 03:35 Temperature 97.8 F 98.0 F Pulse Rate 59 58 Respiratory 16 18 18 Rate Blood Pressure 154/68 151/66 (mmHg) O2 Sat by Pulse 98 96 Oximetry 01/08/17 01/08/17 01/08/17 05:50 07:33 07:48 Temperature 97.5 F Pulse Rate 58 Respiratory 18 18 16 Rate Blood Pressure 135/59 (mmHg) O2 Sat by Pulse 100 Oximetry 01/08/17 07:50 Temperature Pulse Rate Respiratory 18 Rate Blood Pressure (mmHg) O2 Sat by Pulse Oximetry Oxygen Devices in Use Now: None Appearance: Male sitting up in bed in NAD Eyes: No Scleral Icterus Ears/Nose/Mouth/Throat: Mucous Membranes Moist Neck: NL Appearance and Movements; NL JVP Respiratory: Symmetrical Chest Expansion and Respiratory Effort, Clear to Auscultation Cardiovascular: NL Sounds; No Murmurs; No JVD, No Edema Abdominal: NL Sounds; No Tenderness; No Distention Lymphatic: No Cervical Adenopathy Extremities: - - Improvement in swelling and pain Skin: No Rash or Ulcers Neurological: Alert and Oriented x 3, NL Muscle Strength and Tone Nutrition: Taking PO's Result Diagrams: 01/03/17 05:12 01/08/17 05:22 Additional Lab and Data: Lab Results 12/29/16 12/29/16 12/29/16 Range/Units 11:15 11:15 11:15 WBC 9.0 (3.5-10.8) 10^3/ul RBC 4.05 (4.0-5.4) 10^6/ul Hgb 11.2 L (14.0-18.0) g/dl Hct 33 L (42-52) % MCV 82 (80-94) fL MCH 28 (27-31) pg MCHC 34 (31-36) g/dl RDW 13 (10.5-15) % Plt Count 242 (150-450) 10^3/ul MPV 8 (7.4-10.4) um3 Neut % (Auto) 75.0 (38-83) % Lymph % (Auto) 11.9 L (25-47) % [place] % (Auto) 10.4 H (1-9) % Eos % (Auto) 1.7 (0-6) % Baso % (Auto) 1.0 (0-2) % Absolute Neuts (auto) 6.8 (1.5-7.7) 10^3/ul Absolute Lymphs (auto) 1.1 (1.0-4.8) 10^3/ul Absolute Monos (auto) 0.9 H (0-0.8) 10^3/ul Absolute Eos (auto) 0.2 (0-0.6) 10^3/ul Absolute Basos (auto) 0.1 (0-0.2) 10^3/ul Absolute Nucleated RBC 0.01 10^3/ul Nucleated RBC % 0.1 Sodium 132 L (133-145) mmol/L Potassium 4.3 (3.5-5.0) mmol/L Chloride 100 L (101-111) mmol/L Carbon Dioxide 22 (22-32) mmol/L Anion Gap 10 (2-11) mmol/L BUN 46 H (6-24) mg/dL Creatinine 3.26 H (0.67-1.17) mg/dL Est GFR ( Amer) 25.1 (>60) Est GFR (Non-Af Amer) 19.5 (>60) BUN/Creatinine Ratio 14.1 (8-20) Glucose 104 H (70-100) mg/dL POC Glucose (mg/dL) (74-106) mg/dL Hemoglobin A1c (Less than 6.0) % Lactic Acid 1.1 (0.5-2.0) mmol/L Uric Acid (4.4-7.6) mg/dL Calcium 8.5 L (8.6-10.3) mg/dL Total Bilirubin 0.30 (0.2-1.0) mg/dL AST 11 L (13-39) U/L ALT 9 (7-52) U/L Alkaline Phosphatase 52 (34-104) U/L Total Creatine Kinase (10-223) U/L C-Reactive Protein 98.19 H (< 5.00) mg/L Total Protein 7.4 (6.4-8.9) g/dL Albumin 3.4 (3.2-5.2) g/dL Globulin 4.0 (2-4) g/dL Albumin/Globulin Ratio 0.9 L (1-3) 12/29/16 12/29/16 12/30/16 Range/Units 11:15 17:18 05:19 WBC 7.8 (3.5-10.8) 10^3/ul RBC 3.98 L (4.0-5.4) 10^6/ul Hgb 11.2 L (14.0-18.0) g/dl Hct 33 L (42-52) % MCV 82 (80-94) fL MCH 28 (27-31) pg MCHC 34 (31-36) g/dl RDW 13 (10.5-15) % Plt Count 244 (150-450) 10^3/ul MPV 9 (7.4-10.4) um3 Neut % (Auto) 70.8 (38-83) % Lymph % (Auto) 17.0 L (25-47) % [place] % (Auto) 9.4 H (1-9) % Eos % (Auto) 1.8 (0-6) % Baso % (Auto) 1.0 (0-2) % Absolute Neuts (auto) 5.5 (1.5-7.7) 10^3/ul Absolute Lymphs (auto) 1.3 (1.0-4.8) 10^3/ul Absolute Monos (auto) 0.7 (0-0.8) 10^3/ul Absolute Eos (auto) 0.1 (0-0.6) 10^3/ul Absolute Basos (auto) 0.1 (0-0.2) 10^3/ul Absolute Nucleated RBC 0 10^3/ul Nucleated RBC % 0 Sodium (133-145) mmol/L Potassium (3.5-5.0) mmol/L Chloride (101-111) mmol/L Carbon Dioxide (22-32) mmol/L Anion Gap (2-11) mmol/L BUN (6-24) mg/dL Creatinine (0.67-1.17) mg/dL Est GFR ( Amer) (>60) Est GFR (Non-Af Amer) (>60) BUN/Creatinine Ratio (8-20) Glucose (70-100) mg/dL POC Glucose (mg/dL) 92 (74-106) mg/dL Hemoglobin A1c 5.9 (Less than 6.0) % Lactic Acid (0.5-2.0) mmol/L Uric Acid (4.4-7.6) mg/dL Calcium (8.6-10.3) mg/dL Total Bilirubin (0.2-1.0) mg/dL AST (13-39) U/L ALT (7-52) U/L Alkaline Phosphatase (34-104) U/L Total Creatine Kinase (10-223) U/L C-Reactive Protein (< 5.00) mg/L Total Protein (6.4-8.9) g/dL Albumin (3.2-5.2) g/dL Globulin (2-4) g/dL Albumin/Globulin Ratio (1-3) 12/30/16 12/30/16 Range/Units 05:19 07:51 WBC (3.5-10.8) 10^3/ul RBC (4.0-5.4) 10^6/ul Hgb (14.0-18.0) g/dl Hct (42-52) % MCV (80-94) fL MCH (27-31) pg MCHC (31-36) g/dl RDW (10.5-15) % Plt Count (150-450) 10^3/ul MPV (7.4-10.4) um3 Neut % (Auto) (38-83) % Lymph % (Auto) (25-47) % [place] % (Auto) (1-9) % Eos % (Auto) (0-6) % Baso % (Auto) (0-2) % Absolute Neuts (auto) (1.5-7.7) 10^3/ul Absolute Lymphs (auto) (1.0-4.8) 10^3/ul Absolute Monos (auto) (0-0.8) 10^3/ul Absolute Eos (auto) (0-0.6) 10^3/ul Absolute Basos (auto) (0-0.2) 10^3/ul Absolute Nucleated RBC 10^3/ul Nucleated RBC % Sodium 132 L (133-145) mmol/L Potassium 4.0 (3.5-5.0) mmol/L Chloride 105 (101-111) mmol/L Carbon Dioxide 22 (22-32) mmol/L Anion Gap 5 (2-11) mmol/L BUN 43 H (6-24) mg/dL Creatinine 2.82 H (0.67-1.17) mg/dL Est GFR ( Amer) 29.6 (>60) Est GFR (Non-Af Amer) 23.0 (>60) BUN/Creatinine Ratio 15.2 (8-20) Glucose 86 (70-100) mg/dL POC Glucose (mg/dL) 117 H (74-106) mg/dL Hemoglobin A1c (Less than 6.0) % Lactic Acid (0.5-2.0) mmol/L Uric Acid 9.9 H (4.4-7.6) mg/dL Calcium 8.4 L (8.6-10.3) mg/dL Total Bilirubin (0.2-1.0) mg/dL AST (13-39) U/L ALT (7-52) U/L Alkaline Phosphatase (34-104) U/L Total Creatine Kinase 48 (10-223) U/L C-Reactive Protein 69.13 H (< 5.00) mg/L Total Protein (6.4-8.9) g/dL Albumin (3.2-5.2) g/dL Globulin (2-4) g/dL Albumin/Globulin Ratio (1-3) Diagnostic Imaging: Doppler RUE: No sonographic evidence of DVT RUE CT: extensive cellulitis, potential olecranon bursitis with calcified loose bodies. No compelling CT evidence for presence of a loculated soft tissue plane abscess collection. RUE MRI: findings most consistent with cellulitis and fascitis. No evidence for abscess. Small effusion within the elbow joint. XR of right hand, forearm, elbow: unremarkable R hand. No fx of right forearm present. Diffuse soft tissue swelling about the elbow, extending into the forearm; no fracture or foreign body of elbow. Assess/Plan/Problems-Billing Assessment: Mr. Carrillo is a 61 yo male with a PMH of HTN, HLD, DM, anxiety, and gout who presented to the ED on 12/29 with concern for dizziness, nausea, RUE edema and pain and diagnosed with RUE cellulitis s/p [facility]. - Patient Problems (1) Cellulitis of right upper extremity Comment: - Hand swelling improved. - MRI of upper extremity continues to only show cellulitis and fascitis without fluid collection. - Appreciate ID consult. Switch to oral doxycycline and cipro for 14 day. Question if perhaps patient could have gout attack given that his swelling are unchanged despite treatment. Patient has history of gout with significant hand swelling in the past, continue colchicine. - Appreciate Ortho consult. Encourage extremity elevation and ice packs to hand. (2) Acute kidney injury Comment: - Resolved. - Acute on chronic kidney disease, stage 3. Suspect secondary to dehydration and Bactrim. (3) Diabetes Comment: - BGs well controlled. HgbA1c 5.9. - Continue FSBG with Lispro SSI. - Resume home metformin at discharge. (4) HTN (hypertension) Comment: - SBP now 140-150s. - Increased dose of metoprolol again, continue max dose amlodipine. Patient has a severe allergy to lisinopril in the past. (5) HLD (hyperlipidemia) Comment: - Total cholesterol 185. - Continue atorvastatin. (6) DVT prophylaxis Comment: - SQ heparin. (7) Full code status Status and Disposition: Inpatient. Extended LOS for infection and need for IV abx. Anticipate discharge to home when medically stable.
--- NOTE | 2017-01-08 10:47 | PN ---
Progress Note - Progress Note Date of Service: 01/08/17 SOAP: Subjective: []Patient seen OOB resting in his chair. He reports overall improvement in pain in his right hand. He feels his motion is improving as well. Objective: [] Vital Signs Temp 97.5 F 01/08/17 07:33 Pulse 58 01/08/17 07:33 Resp 18 01/08/17 07:50 BP 135/59 01/08/17 07:33 Pulse Ox 100 01/08/17 07:33 Intake & Output 01/07/17 01/08/17 01/08/17 18:59 06:59 18:59 Intake Total 1472 950 250 Balance 1472 950 250 Weight 233 lb 14.4 oz Intake: IV Fluids 322 290 ABX - CEFTRIAXONE 52 ABX - VANCOMYCIN 270 270 NS (0.9%) 20 IVPB 20 250 ABX - CEFTRIAXONE 10 ABX - VANCOMYCIN 10 250 Oral 1130 660 Other: Estimated Void Medium Large # Bowel Movements 1 0 Estimated Stool Amount Medium # Voids 3 Laboratory Results - last 24 hr 01/07/17 01/07/17 01/08/17 12:30 16:53 05:22 Sodium 134 Potassium 5.1 H Chloride 107 Carbon Dioxide 22 Anion Gap 5 BUN 34 H Creatinine 1.51 H Est GFR ( Amer) 60.9 Est GFR (Non-Af Amer) 47.4 BUN/Creatinine Ratio 22.5 H Glucose 89 POC Glucose (mg/dL) 90 73 L Calcium 8.5 L C-Reactive Protein 28.14 H Right hand erythema has improved, still swollen. He has better ROM of thumb and index finger today. Less tender over MCP joint and index finger Assessment: []Cellulitis/ fasciitis improving Possible gout flare- improving on colchicine Plan: []Dr. Cooper recommends transition to po doxycycline and Cipro for 10days Follow up with Dr. Hopper in 7- 10 days, Ortho office and Dr. Cooper as scheduled
[2017-01-08] MEDS: cefTRIAXone VIAL(*) 1,000 MG in NS 0.9% 50 ML* 50 ML IVPB SCH (11:34)
--- NOTE | 2017-01-09 07:09 | DS ---
CC: Daiana Bautista; Dr. Horta; Dr. Cooper.* DISCHARGE SUMMARY: DATE OF ADMISSION: 12/29/16 DATE OF DISCHARGE: 01/08/17 PRIMARY CARE PHYSICIAN: Daiana Bautista NP ORTHOPEDIC SURGEON: Dr. Horta. ATTENDING PHYSICIAN: Dr. Emily Steel* (dictation provided by Nancie Amaral NP) PRIMARY DIAGNOSES: 1. Right hand cellulitis. 2. Suspected gout. 3. Acute kidney injury (now resolved). SECONDARY DIAGNOSES: 1. Hypertension. 2. Hyperlipidemia. 3. Type 2 diabetes, non-insulin dependant. 4. Anxiety. 5. History of gout. 6. Chronic kidney disease. PAST SURGICAL HISTORY: 1. Appendectomy. 2. Knee surgery. MEDICATIONS AT THE TIME OF DISCHARGE: Will be: 1. Cipro 500 mg p.o. b.i.d. x14 days. 2. Doxycycline 100 mg p.o. b.i.d. x14 days. 3. Metoprolol succinate 75 mg p.o. b.i.d. (increased dose). 4. Amlodipine 10 mg p.o. daily. 5. Cyclobenzaprine 10 mg p.o. b.i.d. p.r.n. 6. Colchicine 0.6 mg p.o. b.i.d. 7. Atorvastatin 80 mg p.o. daily. 8. Aspirin 81 mg p.o. daily. 9. Metformin 1000 mg p.o. daily. HOSPITAL COURSE: Mr. Carrillo is a 61-year-old male who presented to the emergency room on 12/29/16 with concern for right upper extremity swelling following a blood draw. Please see the dictated H and P from Keren Padilla NP for complete details. In brief, the patient reports that he had a blood draw prior to admission at the [facility] on 12/25/16. Shortly thereafter, he noted pain and swelling in his antecubital area and then into the elbow. He went to [facility] where he was started on Bactrim. Despite Bactrim he continued to have pain and swelling and then became lightheaded and dizzy over the ensuing few days. In the emergency room, it was found that he had cellulitis to the right upper extremity. He also had acute kidney injury. It was suspected that the acute kidney injury was secondary to Bactrim and dehydration. The patient had venous Doppler study to the arm on 12/29/16 which was read as follows: "Sonographic evidence of subcutaneous edema is seen overlying the right forearm. No sonographic evidence of DVT." He had an upper extremity CT on 12/30/16 which was read as follows: "The constellation of findings is consistent with extensive cellulitis given the clinical context. Potential olecranon bursitis with calcified loose bodies correlate with clinical assessment. No compelling CT evidence for presence of a loculated soft tissue plain abscess collection." The patient then had an upper extremity MRI which is read as follows: "Findings most consistent with cellulitis and fascitis. No evidence for abscess, small effusion within the elbow joint". The patient was seen in consultation by Dr. Cooper from Infectious Diseases. Please see his note for complete details, but in brief he recommended the patient continue with cephazolin and added vancomycin out of concern for any possible resistant staphylococcal infection. The patient was seen in consult by Dr. Hopper from orthopedic services. He agreed that there was cellulitis, but found no evidence for abscess, necrotizing fascitis, infected tenosynovitis , infected joint or compartment syndrome. Mr. Andersen hand remains swollen and painful over the ensuing few days. He did go for a repeat venous Doppler study on 01/03/17 which showed "no evidence for right upper extremity DVT." He then had a repeat upper extremity MRI which showed "findings most consistent with cellulitis and fascitis. No evidence for abscess." The patient continued on ceftriaxone and vancomycin throughout the hospitalization and he was followed by orthopedic services and ID. His white blood cell count remained normal throughout the hospitalization. He remained afebrile. His acute kidney injury from admission where his creatinine was 3.26 resolved with fluids and discontinuation of Bactrim and his creatinine at the time of discharge is 1.51. Mr. Andersen hand remains swollen, but it is improved from arrival. He has pain at the right MCP joint that is improved. He range of motion continues to improve. Plans are for him to be discharged to home to complete a 14-day course of antibiotics with close followup with both orthopedic services and infectious diseases. The patient is also to continue with physical therapy exercises. Because Mr. Andersen hand swelling has improved so minimally despite broad- spectrum antibiotics intravenously. There was also concern that perhaps this is reflective of a gout attack. He does have a history of gout in the past to the hand and he has been started on colchicine in the event that that is also playing a role. Mr. Carrillo is medically stable for discharge home today to follow up with Dr. Horta and Dr. Cooper. DISPOSITION: Home. DIET: Consistent carbohydrate. ACTIVITY: As tolerated with physical therapy exercises for the right hand. FOLLOWUP PLANS: 1. Please follow up with Dr. Horta on January 15 at 10:30 a.m. 2. Please follow up with Dr. Cooper. His office will call for an appointment. 3. Please follow up with nurse practitioner Daiana Bautista within the next month regarding monitoring for his kidney and other comorbid conditions. I will note that the patient's potassium was unexpectedly high this morning at 5.1. I have asked that he recheck his potassium on Friday and have those results sent to Daiana Bautista's office. NANCIE AMARAL, ALISON [id number]/[facility] #: [id number] MTDHeather
== END 2017-01-08 13:15 | disposition home or self-care (01) | DRG 383 ==
LOC: ED 09:41 → MED 13:33 → OBSVTOIN 12-30 09:30
PROVIDERS: ADMIT Internal Medicine; ATTEND Internal Medicine
DX: L03.113 Cellulitis of right upper limb (principal); E11.22 Type 2 diabetes mellitus with diabetic chronic kidney disease; E13.42 Other specified diabetes mellitus with diabetic polyneuropathy; N17.9 Acute kidney failure, unspecified; N18.3 Chronic kidney disease, stage 3 (moderate); E87.1 Hypo-osmolality and hyponatremia; I12.9 Hypertensive chronic kidney disease with stage 1 through stage 4 chronic kidney disease, or unspecified chronic kidney disease; E78.5 Hyperlipidemia, unspecified; M72.9 Fibroblastic disorder, unspecified; F41.9 Anxiety disorder, unspecified; M10.9 Gout, unspecified; Z79.84 Long term (current) use of oral hypoglycemic drugs; Z79.82 Long term (current) use of aspirin
CPT/HCPCS: 36415; 80048; 80053; 80202; 82550; 82565; 83036; 83605; 84520; 84550; 85025; 86140; 93005; A9270-GY; J0690; J0696; J1644; J3370

== ENCOUNTER 2017-01-09 02:52 | Emergency (ER) | payer OTHER ==
--- NOTE | 2017-01-09 03:50 | ED ---
Trista Reyes Rebecca, scribed for Serge Jaramillo MD on 01/09/17 at 0316 . Complex/Multi-Sys Presentation - HPI Summary HPI Summary: Pt is a 61 y/o M who presents to ED c/o sx consistent with his typical panic attacks s/p his cat startling him. Reports at 0100 this morning his cat jumped on the bed and got close to him, which is typically alright but tonight it let to onset of sx similar to prior panic attacks. He currently c/o SOB and a "trapped feeling." Sx began suddenly at 0100 and have been constant since onset. Sx aggravated by his cat startling him, alleviated by nothing. PMHx anxiety and panic disorder. Pt was D/C 12 hours ago from [address] [place] [address]. - History Of Current Complaint Chief Complaint: EDGeneral Time Seen by Provider: 01/09/17 03:07 Hx Obtained From: Patient Onset/Duration: Sudden Onset, Still Present Timing: Constant Severity Currently: None Aggravating Factor(s): Cat startling him Alleviating Factor(s): Nothing Associated Signs And Symptoms: Positive: SOB, Other - "trapped feeling" - Allergies/Home Medications Allergies/Adverse Reactions: Allergies Allergy/AdvReac Type Severity Reaction Status Date / Time Lisinopril Allergy Difficulty Verified 01/06/17 15:37 Breathing Niacin Allergy Rash Verified 01/06/17 15:37 PMH/Surg Hx/FS Hx/Imm Hx Endocrine/Hematology History: Reports: Hx Diabetes - TYPE 2 / ON ORAL MEDS Denies: Hx Thyroid Disease Cardiovascular History: Reports: Hx Angina, Hx Hypercholesterolemia, Hx Hypertension, Other Cardiovascular Problems/Disorders - GOUT Denies: Hx Coronary Artery Disease, Hx Myocardial Infarction, Hx Pacemaker/ ICD, Hx Valvular Heart Disease Respiratory History: Denies: Hx Asthma, Hx Chronic Obstructive Pulmonary Disease (COPD) GI History: Denies: Hx Ulcer Musculoskeletal History: Reports: Hx Gout, Other Musculoskeletal History - HIP PAIN Denies: Hx Arthritis, Hx Osteoporosis, Hx Scoliosis Sensory History: Reports: Hx Contacts or Glasses Denies: Hx Hearing Aid Opthamlomology History: Reports: Hx Contacts or Glasses Neurological History: Reports: Hx Headaches Denies: Other Neuro Impairments/Disorders Psychiatric History: Reports: Hx Anxiety, Hx Panic Disorder - Surgical History Surgery Procedure, Year, and Place: POLYPS REMOVED INTESTINE. APPENDECTOMY. KNEE SURGERY 1998 Hx Anesthesia Reactions: No Infectious Disease History: Denies: Hx Clostridium Difficile, Hx Hepatitis, Hx Human Immunodeficiency Virus (HIV), Hx of Known/Suspected MRSA, Hx Shingles, Hx Tuberculosis, Hx Known/ Suspected VRE, Hx Known/Suspected VRSA, History Other Infectious Disease, Traveled Outside the [place] in Last 30 Days - Family History Known Family History: Positive: Cardiac Disease, Other - father - asthma - Social History Alcohol Use: None Hx Substance Use: No Substance Use Type: Reports: None Hx Tobacco Use: No Smoking Status (MU): Never Smoked Tobacco Review of Systems Positive: Other - "trapped feeling" Positive: Shortness Of Breath All Other Systems Reviewed And Are Negative: Yes Physical Exam Triage Information Reviewed: Yes Vital Signs On Initial Exam: Initial Vitals Temp Pulse Resp BP Pulse Ox 98 F 66 20 175/80 97 01/09/17 02:52 01/09/17 02:52 01/09/17 02:52 01/09/17 02:52 01/09/17 02:52 Vital Signs Reviewed: Yes Appearance: Positive: Well-Appearing, No Pain Distress Skin: Positive: Warm Head/Face: Positive: Normal Head/Face Inspection Eyes: Positive: ANDERS ENT: Positive: Hearing grossly normal Neck: Positive: Supple Respiratory/Lung Sounds: Positive: Clear to Auscultation, Breath Sounds Present Cardiovascular: Positive: RRR Abdomen Description: Positive: Nontender, Soft Bowel Sounds: Positive: Present Musculoskeletal: Positive: Strength/ROM Intact Neurological: Positive: Alert, Oriented to Person Place, Time Psychiatric: Positive: Affect/Mood Appropriate Diagnostics - Vital Signs Vital Signs Temp Pulse Resp BP Pulse Ox 01/09/17 02:52 98 F 66 20 175/80 97 - Laboratory Lab Statement: Any lab studies that have been ordered have been reviewed, and results considered in the medical decision making process. - Radiology CXR Xray Interpretation: No Acute Changes Radiology Interpretation Completed By: ED Physician Re-Evaluation - Re-Evaluation First Eval Change: Improved Complex Multi-Symp Course/Dx Assessment/Plan: Pt is a 61 y/o M who presents to ED c/o SOB and "trapped feeling" which are sx consistent with his typical panic attacks s/p his cat startling him at 0100 this morning. Sx have been constant since onset. PMHx anxiety and panic disorder. Pt was D/C 12 hours ago from [address] [place] [address]. CXR reveals no acute findings. Pt will be D/C to home with Dx of URI. He understands and agrees. - Diagnoses Provider Diagnoses: Upper respiratory infection Discharge - Discharge Plan Condition: Stable Disposition: HOME Patient Education Materials: Upper Respiratory Infection (ED) Referrals: Daiana Bautista [Primary Care Provider] - 3 Days The documentation as recorded by the Trista gifford Rebecca accurately reflects the service I personally performed and the decisions made by , Serge Jaramillo MD.
[2017-01-09 03:59] VITALS: BP 159/74
--- NOTE | 2017-01-09 07:33 | RAD ---
HISTORY: Shortness of breath COMPARISONS: Sepsis February 19, 2016 VIEWS: 2: Frontal dual-energy and lateral views of the chest. FINDINGS: CARDIOMEDIASTINAL SILHOUETTE: The cardiomediastinal silhouette is normal. MELISA: The melisa are normal. PLEURA: The costophrenic angles are sharp. No pleural abnormalities are noted. LUNG PARENCHYMA: There is hyperinflation with flattening of the diaphragm and expansion of the AP diameter of the chest. ABDOMEN: The upper abdomen is clear. There is no subphrenic gas. BONES AND SOFT TISSUES: Degenerative changes are noted along the spine. OTHER: None. IMPRESSION: HYPERINFLATION, CONSISTENT WITH COPD. NO ACTIVE CARDIOPULMONARY DISEASE.
== END 2017-01-09 03:57 | disposition home or self-care (01) ==
LOC: ED 02:52
DX: J06.9 Acute upper respiratory infection, unspecified (principal); E11.9 Type 2 diabetes mellitus without complications; Z79.84 Long term (current) use of oral hypoglycemic drugs; E78.00 Pure hypercholesterolemia, unspecified; I10 Essential (primary) hypertension; M10.9 Gout, unspecified; F41.0 Panic disorder [episodic paroxysmal anxiety]
CPT/HCPCS: 71020

== ENCOUNTER 2017-07-02 08:33 | Emergency (ER) | payer OTHER ==
[2017-07-02 09:59] LABS: Hematocrit 35 % (42-52); Hemoglobin 11.9 g/dl (14.0-18.0); Mean Corpuscular HGB Conc 34 g/dl (31-36); Mean Corpuscular Hemoglobin 28 pg (27-31); Mean Corpuscular Volume 83 fL (80-94); Mean Platelet Volume 8 um3 (7.4-10.4); Red Blood Count 4.21 10^6/ul (4.0-5.4); Red Cell Distribution Width 14 % (10.5-15); White Blood Count 10.1 10^3/ul (3.5-10.8)
[2017-07-02 10:18] LABS: Albumin 3.4 g/dL (3.2-5.2); BUN/Creatinine Ratio 13.9 (8-20); C Reactive Protein 53.54 mg/L (< 5.00); Calcium 8.7 mg/dL (8.6-10.3); EGFR African American 34.9 (>60); EGFR Non-African American 27.1 (>60); Globulin 3.9 g/dL (2-4); Potassium 4.3 mmol/L (3.5-5.0); Total Bilirubin 0.4 mg/dL (0.2-1.0); Total Protein 7.3 g/dL (6.4-8.9); Uric Acid 9.2 mg/dL (4.4-7.6)
[2017-07-02 10:58] LABS: Erythrocyte Sed Rate 87 mm/Hr (0-20)
[2017-07-02] MEDS ORDERED: NS 0.9% 1000 ML* 1,000 ML BOLUS SCH (11:30)
--- NOTE | 2017-07-02 12:46 | RAD ---
INDICATION: Pain and swelling. COMPARISON: November 06, 2016 TECHNIQUE: Duplex interrogation of the Lowerextremity was performed. FINDINGS: Deep veins: The common femoral, great saphenous, profunda femoris, proximal, mid, and distal deep femoral, popliteal, posterior tibial, and peroneal veins are patent. There is normal compressibility, augmentation, and phasic flow. Superficial veins: There are no findings of superficial thrombophlebitis. Popliteal fossa:There is no evidence of a popliteal cyst. Soft tissues:There is dependent edema. IMPRESSION: Normal examination. No evidence of deep venous thrombosis
[2017-07-02 14:03] LABS: BUN/Creatinine Ratio 13.9 (8-20); Calcium 8.6 mg/dL (8.6-10.3); Potassium 4.3 mmol/L (3.5-5.0)
[2017-07-02 14:59] LABS: Urine Bacteria Absent (Absent); Urine Bilirubin Negative (Negative); Urine Glucose 1+(50 mg/dL) (Negative); Urine Nitrite Negative (Negative)
[2017-07-02] MEDS ORDERED: HYDROcodone/ACETAMIN 5-325 MG* 1 TAB PO ONE (15:15)
[2017-07-02 15:29] VITALS: BP 168/74
--- NOTE | 2017-07-03 11:07 | ED ---
Wesly Reyes Gabriel, scribed for Courtney Carrillo MD on 07/02/17 at 0911 . Lower Extremity - HPI Summary HPI Summary: This patient is a 61 year old M resenting to [facility] with a chief complaint of RLE pain since 06/27/17. The patient rates the pain 8/10 in severity and throughout the entire right leg. Patient reports edema and chills. Patient denies injury, nausea, and vomiting. Patient states he has had cellulitis but no clots in his legs. In January he had an infection in his arm and was hospitalized for 10 days. History of NIDDM and gout. - History of Current Complaint Chief Complaint: EDExtremityLower Stated Complaint: RIGHT LEG PAIN Time Seen by Provider: 07/02/17 09:02 Hx Obtained From: Patient Mechanism Of Injury: Other - none Onset of Pain: Days - 06/27/17 Onset/Duration: Still Present Severity Initially: Moderate Severity Currently: Moderate Pain Intensity: 8 Pain Scale Used: 0-10 Numeric Timing: Constant Location: Is Diffuse - throught RLE Associated Signs And Symptoms: Positive: Negative - injury, nausea, vomiting, Swelling, Knee Pain, Other - chills Aggravating Factor(s): Nothing Alleviating Factor(s): Nothing Able to Bear Weight: Yes - Risk Factors Gout Risk Factors: Age Over 40, Male, Diabetes, Renal Disease - Allergies/Home Medications Allergies/Adverse Reactions: Allergies Allergy/AdvReac Type Severity Reaction Status Date / Time Lisinopril Allergy Difficulty Verified 07/02/17 08:44 Breathing Niacin Allergy Rash Verified 07/02/17 08:44 PMH/Surg Hx/FS Hx/Imm Hx Previously Healthy: No Endocrine/Hematology History: Reports: Hx Diabetes - TYPE 2 / ON ORAL MEDS Denies: Hx Thyroid Disease Cardiovascular History: Reports: Hx Angina, Hx Hypercholesterolemia, Hx Hypertension Denies: Hx Coronary Artery Disease, Hx Myocardial Infarction, Hx Pacemaker/ ICD, Hx Valvular Heart Disease Respiratory History: Denies: Hx Asthma, Hx Chronic Obstructive Pulmonary Disease (COPD) GI History: Denies: Hx Ulcer Musculoskeletal History: Reports: Hx Gout Denies: Hx Arthritis, Hx Osteoporosis, Hx Scoliosis Sensory History: Reports: Hx Contacts or Glasses Denies: Hx Hearing Aid Opthamlomology History: Reports: Hx Contacts or Glasses Neurological History: Reports: Hx Headaches Denies: Other Neuro Impairments/Disorders Psychiatric History: Reports: Hx Anxiety, Hx Panic Disorder - Surgical History Surgery Procedure, Year, and Place: POLYPS REMOVED INTESTINE. APPENDECTOMY. KNEE SURGERY 1998 Hx Anesthesia Reactions: No Infectious Disease History: No Infectious Disease History: Denies: Hx Clostridium Difficile, Hx Hepatitis, Hx Human Immunodeficiency Virus (HIV), Hx of Known/Suspected MRSA, Hx Shingles, Hx Tuberculosis, Hx Known/ Suspected VRE, Hx Known/Suspected VRSA, History Other Infectious Disease, Traveled Outside the [place] in Last 30 Days - Family History Known Family History: Positive: Cardiac Disease, Hypertension, Other - father - asthma - Social History Lives: With Family Alcohol Use: None Hx Substance Use: No Substance Use Type: Reports: None Hx Tobacco Use: No Smoking Status (MU): Never Smoked Tobacco Review of Systems Constitutional: Negative - injury Positive: Chills Negative: Vomiting, Nausea Positive: Edema - RLE , Other - RLE pain All Other Systems Reviewed And Are Negative: Yes Physical Exam - Summary Physical Exam Summary: Appearance: Well-appearing, Mild pain distress, Obese Skin: Warm, color reflects adequate perfusion; pt's RLE is not red, or hot, minimal swelling, no foot ulcers or lesions Head: Normal Head/Face inspection Eyes: Conjunctiva clear ENT: Normal appearance Neck: Supple Respiratory: Lungs clear, Normal breath sounds, no respiratory distress Cardio: RRR, No murmur, pulses normal, brisk capillary refill Abdomen: soft, nontender Bowel sounds: present Musculoskeletal: Strength Intact/ ROM intact. 1+ Edema in RLE with minimal calf tenderness Neuro: Alert, muscle tone normal,facial symmetry, speech normal, sensory/motor intact Triage Information Reviewed: Yes Vital Signs On Initial Exam: Initial Vitals Temp Pulse Resp BP Pulse Ox 98.6 F 57 16 144/76 98 07/02/17 08:45 07/02/17 08:45 07/02/17 08:45 07/02/17 08:45 07/02/17 08:45 Vital Signs Reviewed: Yes Diagnostics - Vital Signs Vital Signs Temp Pulse Resp BP Pulse Ox 07/02/17 08:45 98.6 F 57 16 144/76 98 - Laboratory Lab Results: Lab Results 07/02/17 07/02/17 07/02/17 Range/Units 09:30 09:30 09:30 WBC 10.1 (3.5-10.8) 10^3/ul RBC 4.21 (4.0-5.4) 10^6/ul Hgb 11.9 L (14.0-18.0) g/dl Hct 35 L (42-52) % MCV 83 (80-94) fL MCH 28 (27-31) pg MCHC 34 (31-36) g/dl RDW 14 (10.5-15) % Plt Count 274 (150-450) 10^3/ul MPV 8 (7.4-10.4) um3 Neut % (Auto) 75.4 (38-83) % Lymph % (Auto) 12.8 L (25-47) % [place] % (Auto) 9.5 H (1-9) % Eos % (Auto) 1.6 (0-6) % Baso % (Auto) 0.7 (0-2) % Absolute Neuts (auto) 7.6 (1.5-7.7) 10^3/ul Absolute Lymphs (auto) 1.3 (1.0-4.8) 10^3/ul Absolute Monos (auto) 1.0 H (0-0.8) 10^3/ul Absolute Eos (auto) 0.2 (0-0.6) 10^3/ul Absolute Basos (auto) 0.1 (0-0.2) 10^3/ul Absolute Nucleated RBC 0 10^3/ul Nucleated RBC % 0 ESR 87 H (0-20) mm/Hr INR (Anticoag Therapy) 0.99 (0.77-1.02) Sodium 133 (133-145) mmol/L Potassium 4.3 (3.5-5.0) mmol/L Chloride 103 (101-111) mmol/L Carbon Dioxide 24 (22-32) mmol/L Anion Gap 6 (2-11) mmol/L BUN 34 H (6-24) mg/dL Creatinine 2.45 H (0.67-1.17) mg/dL Est GFR ( Amer) 34.9 (>60) Est GFR (Non-Af Amer) 27.1 (>60) BUN/Creatinine Ratio 13.9 (8-20) Glucose 134 H (70-100) mg/dL POC Glucose (mg/dL) (70-100) mg/dL Lactic Acid (0.5-2.0) mmol/L Uric Acid 9.2 H (4.4-7.6) mg/dL Calcium 8.7 (8.6-10.3) mg/dL Total Bilirubin 0.40 (0.2-1.0) mg/dL AST 11 L (13-39) U/L ALT 11 (7-52) U/L Alkaline Phosphatase 47 (34-104) U/L C-Reactive Protein 53.54 H (< 5.00) mg/L Total Protein 7.3 (6.4-8.9) g/dL Albumin 3.4 (3.2-5.2) g/dL Globulin 3.9 (2-4) g/dL Albumin/Globulin Ratio 0.9 L (1-3) Urine Color Urine Appearance Urine pH (5-9) Ur Specific [place] (1.010-1.030) Urine Protein (Negative) Urine Ketones (Negative) Urine Blood (Negative) Urine Nitrate (Negative) Urine Bilirubin (Negative) Urine Urobilinogen (Negative) Ur Leukocyte Esterase (Negative) Urine WBC (Auto) (Absent) Urine RBC (Auto) (Absent) Urine Bacteria (Absent) Urine Glucose (Negative) 07/02/17 07/02/17 07/02/17 Range/Units 09:30 13:34 14:08 WBC (3.5-10.8) 10^3/ul RBC (4.0-5.4) 10^6/ul Hgb (14.0-18.0) g/dl Hct (42-52) % MCV (80-94) fL MCH (27-31) pg MCHC (31-36) g/dl RDW (10.5-15) % Plt Count (150-450) 10^3/ul MPV (7.4-10.4) um3 Neut % (Auto) (38-83) % Lymph % (Auto) (25-47) % [place] % (Auto) (1-9) % Eos % (Auto) (0-6) % Baso % (Auto) (0-2) % Absolute Neuts (auto) (1.5-7.7) 10^3/ul Absolute Lymphs (auto) (1.0-4.8) 10^3/ul Absolute Monos (auto) (0-0.8) 10^3/ul Absolute Eos (auto) (0-0.6) 10^3/ul Absolute Basos (auto) (0-0.2) 10^3/ul Absolute Nucleated RBC 10^3/ul Nucleated RBC % ESR (0-20) mm/Hr INR (Anticoag Therapy) (0.77-1.02) Sodium 135 (133-145) mmol/L Potassium 4.3 (3.5-5.0) mmol/L Chloride 104 (101-111) mmol/L Carbon Dioxide 27 (22-32) mmol/L Anion Gap 4 (2-11) mmol/L BUN 33 H (6-24) mg/dL Creatinine 2.38 H (0.67-1.17) mg/dL Est GFR ( Amer) 36.0 (>60) Est GFR (Non-Af Amer) 28.0 (>60) BUN/Creatinine Ratio 13.9 (8-20) Glucose 83 (70-100) mg/dL POC Glucose (mg/dL) 71 (70-100) mg/dL Lactic Acid 0.7 (0.5-2.0) mmol/L Uric Acid (4.4-7.6) mg/dL Calcium 8.6 (8.6-10.3) mg/dL Total Bilirubin (0.2-1.0) mg/dL AST (13-39) U/L ALT (7-52) U/L Alkaline Phosphatase (34-104) U/L C-Reactive Protein (< 5.00) mg/L Total Protein (6.4-8.9) g/dL Albumin (3.2-5.2) g/dL Globulin (2-4) g/dL Albumin/Globulin Ratio (1-3) Urine Color Urine Appearance Urine pH (5-9) Ur Specific [place] (1.010-1.030) Urine Protein (Negative) Urine Ketones (Negative) Urine Blood (Negative) Urine Nitrate (Negative) Urine Bilirubin (Negative) Urine Urobilinogen (Negative) Ur Leukocyte Esterase (Negative) Urine WBC (Auto) (Absent) Urine RBC (Auto) (Absent) Urine Bacteria (Absent) Urine Glucose (Negative) 07/02/17 Range/Units 14:28 WBC (3.5-10.8) 10^3/ul RBC (4.0-5.4) 10^6/ul Hgb (14.0-18.0) g/dl Hct (42-52) % MCV (80-94) fL MCH (27-31) pg MCHC (31-36) g/dl RDW (10.5-15) % Plt Count (150-450) 10^3/ul MPV (7.4-10.4) um3 Neut % (Auto) (38-83) % Lymph % (Auto) (25-47) % Town[place] % (Auto) (1-9) % Eos % (Auto) (0-6) % Baso % (Auto) (0-2) % Absolute Neuts (auto) (1.5-7.7) 10^3/ul Absolute Lymphs (auto) (1.0-4.8) 10^3/ul Absolute Monos (auto) (0-0.8) 10^3/ul Absolute Eos (auto) (0-0.6) 10^3/ul Absolute Basos (auto) (0-0.2) 10^3/ul Absolute Nucleated RBC 10^3/ul Nucleated RBC % ESR (0-20) mm/Hr INR (Anticoag Therapy) (0.77-1.02) Sodium (133-145) mmol/L Potassium (3.5-5.0) mmol/L Chloride (101-111) mmol/L Carbon Dioxide (22-32) mmol/L Anion Gap (2-11) mmol/L BUN (6-24) mg/dL Creatinine (0.67-1.17) mg/dL Est GFR ( Amer) (>60) Est GFR (Non-Af Amer) (>60) BUN/Creatinine Ratio (8-20) Glucose (70-100) mg/dL POC Glucose (mg/dL) (70-100) mg/dL Lactic Acid (0.5-2.0) mmol/L Uric Acid (4.4-7.6) mg/dL Calcium (8.6-10.3) mg/dL Total Bilirubin (0.2-1.0) mg/dL AST (13-39) U/L ALT (7-52) U/L Alkaline Phosphatase (34-104) U/L C-Reactive Protein (< 5.00) mg/L Total Protein (6.4-8.9) g/dL Albumin (3.2-5.2) g/dL Globulin (2-4) g/dL Albumin/Globulin Ratio (1-3) Urine Color Yellow Urine Appearance Clear Urine pH 6.0 (5-9) Ur Specific [place] 1.012 (1.010-1.030) Urine Protein 3+(>=500 mg/dl) H (Negative) Urine Ketones Negative (Negative) Urine Blood 1+ H (Negative) Urine Nitrate Negative (Negative) Urine Bilirubin Negative (Negative) Urine Urobilinogen Negative (Negative) Ur Leukocyte Esterase Negative (Negative) Urine WBC (Auto) Trace(0-5/hpf) (Absent) Urine RBC (Auto) Trace(0-2/hpf) (Absent) Urine Bacteria Absent (Absent) Urine Glucose 1+(50 mg/dl) H (Negative) Result Diagrams: 07/02/17 09:30 07/02/17 13:34 Lab Statement: Any lab studies that have been ordered have been reviewed, and results considered in the medical decision making process. - Additional Comments Diagnostic Additional Comments: Venous Doppler study reveals, per radiologist, Normal examination. No evidence of deep venous thrombosis ED physician has reviewed this radiology report. Re-Evaluation - Re-Evaluation First Eval Re-Evaluation Time: 13:30 Change: Unchanged - renal function still abnormal after hydration. Second Eval Re-Evaluation Time: 14:00 Change: Unchanged - FS glu 71, pt given sandwich Third Eval Re-Evaluation Time: 15:20 Change: Improved - discussed discharge plan to have f/u labs and eval on . Pt given percocet x 2 for pain. Lower Extremity Course/Dx - Course Course Of Treatment: elevated 9.2. Elevated creatinine is new, but has been this elevated on 12/30/16, was also this elevated in 2016. After a l liter of saline creatinine went from 2.45 to 2.[address]. D[address] Steel and Pt's PCP at [facility], Daiana Bautista. Will manage care as an outpt. cephalexin interval decreased to tid fro qid for his renal function. norco interval decreased from q 4 to q 8 based on his renal function. Pt and family are agreeable to discharge and voice understanding of follow up and treatment plan. - Diagnoses Differential Diagnosis/HQI/PQRI: Positive: Arthritis, Cellulitis, DVT, Gout, Infection, Septic Arthritis, Sprain, Strain Provider Diagnoses: Uncontrolled hypertension, Pain in right lower leg, Acute kidney injury superimposed on chronic kidney disease, Elevated uric acid in blood - Physician Notifications Discussed Care Of Patient With: Emily Steel Time Discussed With Above Provider: 14:24 Instructed by Provider To: Other - We discussed patient care with Dr. Steel and they stated that the patient could most likely be treated as an outpatient. Discussed with Daiana Bautista and she will order labs in 2 days and follow up. She would like pt on antibiotics because of his history of cellulitis and foot ulcers and his diabetes. Have adjusted his cephalexin for his kidney function. Discharge - Discharge Plan Condition: Stable Disposition: HOME Prescriptions: Cephalexin CAP* [Keflex 500 CAP*] 500 mg PO TID #30 cap HYDROcodone/ACETAMIN 5-325 MG* [[place] 5-325 TAB*] 1 tab PO Q8H PRN #12 tab MDD 3 PRN Reason: Pain Patient Education Materials: Impaired Kidney Function (ED), Leg Pain (ED) Referrals: Daiana Bautista [Primary Care Provider] - (Friday07/04/17 at 0900 definite, with repeat labs. ) Additional Instructions: We talked to Daiana Bautista about your tests today. She recommended the antibiotic because you have had a lot of problems with foot ulcers. She will also repeat labs to check on your kidney function. You were given one liter of fluids while you were in the ER, and it did not change your kidney function. We gave you a copy of your tests done today. Please bring these with you to your appointment with Daiana Bautista on this Friday07/04/17 at 0900. Patients Cephalexin dose has been adjusted due to his decreased renal function. Consult Consult: 14:39 We discussed patient care with Dr. Bautista, patients PCP and they stated that she will see the patient on Friday and repeat his labs. The documentation as recorded by the Wesly gifford Gabriel accurately reflects the service I personally performed and the decisions made by me, Courtney Carrillo MD.
== END 2017-07-02 15:28 | disposition home or self-care (01) ==
LOC: ED 08:33
DX: I10 Essential (primary) hypertension (principal); N18.9 Chronic kidney disease, unspecified; M79.605 Pain in left leg; E79.0 Hyperuricemia without signs of inflammatory arthritis and tophaceous disease
CPT/HCPCS: 36415; 80048; 80053; 81003; 81015; 83605; 84550; 85025; 85610; 85652; 86140; 99283

== ENCOUNTER 2017-08-12 06:48 | Emergency (ER) | payer OTHER ==
[2017-08-12 08:01] LABS: ABS Basophils 0.1 10^3/ul (0-0.2); ABS Eosinophils 0.2 10^3/ul (0-0.6); ABS Lymphocytes 1.2 10^3/ul (1.0-4.8); ABS Monocytes 0.6 10^3/ul (0-0.8); ABS Neutrophils 4.7 10^3/ul (1.5-7.7); ABS Nucleated RBC 0 10^3/ul; Eosinophil % 2.5 % (0-6); Hematocrit 33 % (42-52); Hemoglobin 11.2 g/dl (14.0-18.0); Lymphocyte % 17.8 % (25-47); Mean Corpuscular HGB Conc 34 g/dl (31-36); Mean Corpuscular Hemoglobin 28 pg (27-31); Mean Corpuscular Volume 82 fL (80-94); Mean Platelet Volume 8 um3 (7.4-10.4); Nucleated Red Blood Cells % 0; Platelet Count 236 10^3/ul (150-450); Red Blood Count 4.04 10^6/ul (4.0-5.4); Red Cell Distribution Width 14 % (10.5-15); White Blood Count 6.7 10^3/ul (3.5-10.8)
[2017-08-12 08:11] LABS: EGFR Non-African American 29.3 (>60)
[2017-08-12 09:03] LABS: Urine Appearance Clear; Urine Blood Negative (Negative); Urine Color Yellow; Urine Ketones Negative (Negative); Urine Protein 3+(>=500 mg/dL) (Negative); Urine Specific Gravity 1.012 (1.010-1.030); Urine Urobilinogen Negative (Negative)
[2017-08-12 10:33] VITALS: BP 183/81
--- NOTE | 2017-08-13 17:34 | ED ---
Lalit Reyes Angela, scribed for Chencho Armstrong MD on 08/12/17 at 0717 . Psychiatric Complaint - HPI Summary HPI Summary: This pt is a 61 y/o male [facility] c/o recent panic attacks for the past few mornings. Pt reports that today he woke up at 03:00 from sleep with a panic attack. He states that when he has a panic attack, he can't breathe , feels "sick to his stomach," and can't lay or sit up. Denies SI or HI. Pt notes his PCP has recently prescribed him new thyroid and chest pain medications. He reports his panic attack episodes began after these new medications. Pt denies chest pain or SOB. - History Of Current Complaint Chief Complaint: EDGeneral Time Seen by Provider: 08/12/17 07:06 Hx Obtained From: Patient Onset/Duration: Lasting Days, Still Present Timing: Days Severity Initially: Mild Severity Currently: Moderate Character: Manic Aggravating Factor(s): Nothing Alleviating Factor(s): Nothing Associated Signs And Symptoms: Positive: Paranoid Behavior, Sleep Disturbance Has Suicidal: Denies: Thoughts, With A Plan Has Homicidal: Denies: Thoughts, With A Plan - Allergies/Home Medications Allergies/Adverse Reactions: Allergies Allergy/AdvReac Type Severity Reaction Status Date / Time MS Lisinopril [Lisinopril] Allergy Difficulty Verified 07/02/17 08:44 Breathing MS Niacin [Niacin] Allergy Rash Verified 07/02/17 08:44 Home Medications: Home Medications Aspirin EC Low Dose* [Ecotrin EC Low Dose 81 MG*] 81 mg PO DAILY 08/12/17 [ History Confirmed 08/12/17] Cholecalciferol TAB* [Vitamin D TAB*] 3,000 units PO DAILY 08/12/17 [History Confirmed 08/12/17] Isosorbide Mononitrate ER TAB* [Imdur ER TAB*] 30 mg PO DAILY 08/12/17 [History Confirmed 08/12/17] Levothyroxine TAB* [Synthroid TAB*] 25 mcg PO DAILY 08/12/17 [History Confirmed 08/12/17] Metoprolol Succinate XL TAB* [Toprol XL TAB*] 125 mg PO DAILY 08/12/17 [History Confirmed 08/12/17] Senna/Docusate (NF) [Sennokot-S] 1 tab PO DAILY 08/12/17 [History Confirmed ] PMH/Surg Hx/FS Hx/Imm Hx Endocrine/Hematology History: Reports: Hx Diabetes - TYPE 2 / ON ORAL MEDS Denies: Hx Thyroid Disease Cardiovascular History: Reports: Hx Angina, Hx Hypercholesterolemia, Hx Hypertension, Other Cardiovascular Problems/Disorders - GOUT Denies: Hx Coronary Artery Disease, Hx Myocardial Infarction, Hx Pacemaker/ ICD, Hx Valvular Heart Disease Respiratory History: Denies: Hx Asthma, Hx Chronic Obstructive Pulmonary Disease (COPD) GI History: Denies: Hx Ulcer Musculoskeletal History: Reports: Hx Gout, Other Musculoskeletal History - HIP PAIN Denies: Hx Arthritis, Hx Osteoporosis, Hx Scoliosis Sensory History: Reports: Hx Contacts or Glasses Denies: Hx Hearing Aid Opthamlomology History: Reports: Hx Contacts or Glasses Neurological History: Reports: Hx Headaches Denies: Other Neuro Impairments/Disorders Psychiatric History: Reports: Hx Anxiety, Hx Panic Disorder - Surgical History Surgery Procedure, Year, and Place: POLYPS REMOVED INTESTINE. APPENDECTOMY. KNEE SURGERY 1998 Hx Anesthesia Reactions: No Infectious Disease History: No Infectious Disease History: Denies: Hx Clostridium Difficile, Hx Hepatitis, Hx Human Immunodeficiency Virus (HIV), Hx of Known/Suspected MRSA, Hx Shingles, Hx Tuberculosis, Hx Known/ Suspected VRE, Hx Known/Suspected VRSA, History Other Infectious Disease, Traveled Outside the [place] in Last 30 Days - Family History Known Family History: Positive: Cardiac Disease, Hypertension, Other - father - asthma - Social History Alcohol Use: None Hx Substance Use: No Substance Use Type: Reports: None Hx Tobacco Use: No Smoking Status (MU): Never Smoked Tobacco Review of Systems Negative: Fever, Chills Negative: Chest Pain Negative: Shortness Of Breath Psychological: Other - panic attacks All Other Systems Reviewed And Are Negative: Yes Physical Exam - Summary Physical Exam Summary: VITAL SIGNS: Reviewed. GENERAL: Patient is a well-developed and nourished male who is lying comfortable in the stretcher. Patient is not in any acute respiratory distress. HEAD AND FACE: No signs of trauma. No ecchymosis, hematomas or skull depressions. No sinus tenderness. EYES: PERRLA, EOMI x 2, No injected conjunctiva, no nystagmus. EARS: Hearing grossly intact. Ear canals and tympanic membranes are within normal limits. MOUTH: Oropharynx within normal limits. NECK: Supple, trachea is midline, no adenopathy, no JVD, no carotid bruit, no c- spine tenderness, neck with full ROM. CHEST: Symmetric, no tenderness at palpation LUNGS: Clear to auscultation bilaterally. No wheezing or crackles. CVS: Regular rate and rhythm, S1 and S2 present, no murmurs or gallops appreciated. ABDOMEN: Soft, non-tender. No signs of distention. No rebound no guarding, and no masses palpated. Bowel sounds are normal. EXTREMITIES: FROM in all major joints, no edema, no cyanosis or clubbing. NEURO: Alert and oriented x 3. No acute neurological deficits. Speech is normal and follows commands. SKIN: Dry and warm PSYCH: quiet, and denies any suicidal thoughts or plan. No homicidal thoughts or plan. No signs of psychosis or pressure speech. No tangential speech. Triage Information Reviewed: Yes Vital Signs On Initial Exam: Initial Vitals Temp Pulse Resp BP Pulse Ox 98.0 F 63 18 166/78 97 08/12/17 06:50 08/12/17 06:50 08/12/17 06:50 08/12/17 06:50 08/12/17 06:50 Vital Signs Reviewed: Yes Diagnostics - Vital Signs Vital Signs Temp Pulse Resp BP Pulse Ox 08/12/17 06:50 98.0 F 63 18 166/78 97 - Laboratory Lab Results: Lab Results 08/12/17 08/12/17 08/12/17 Range/Units 07:45 07:45 08:44 WBC 6.7 (3.5-10.8) 10^3/ul RBC 4.04 (4.0-5.4) 10^6/ul Hgb 11.2 L (14.0-18.0) g/dl Hct 33 L (42-52) % MCV 82 (80-94) fL MCH 28 (27-31) pg MCHC 34 (31-36) g/dl RDW 14 (10.5-15) % Plt Count 236 (150-450) 10^3/ul MPV 8 (7.4-10.4) um3 Neut % (Auto) 69.4 (38-83) % Lymph % (Auto) 17.8 L (25-47) % [place] % (Auto) 8.9 (1-9) % Eos % (Auto) 2.5 (0-6) % Baso % (Auto) 1.4 (0-2) % Absolute Neuts (auto) 4.7 (1.5-7.7) 10^3/ul Absolute Lymphs (auto) 1.2 (1.0-4.8) 10^3/ul Absolute Monos (auto) 0.6 (0-0.8) 10^3/ul Absolute Eos (auto) 0.2 (0-0.6) 10^3/ul Absolute Basos (auto) 0.1 (0-0.2) 10^3/ul Absolute Nucleated RBC 0 10^3/ul Nucleated RBC % 0 Sodium 135 (133-145) mmol/L Potassium 4.7 (3.5-5.0) mmol/L Chloride 106 (101-111) mmol/L Carbon Dioxide 24 (22-32) mmol/L Anion Gap 5 (2-11) mmol/L BUN 31 H (6-24) mg/dL Creatinine 2.29 H (0.67-1.17) mg/dL Est GFR ( Amer) 37.7 (>60) Est GFR (Non-Af Amer) 29.3 (>60) BUN/Creatinine Ratio 13.5 (8-20) Glucose 112 H (70-100) mg/dL Calcium 8.8 (8.6-10.3) mg/dL Total Bilirubin 0.30 (0.2-1.0) mg/dL AST 11 L (13-39) U/L ALT 9 (7-52) U/L Alkaline Phosphatase 45 (34-104) U/L Total Protein 6.9 (6.4-8.9) g/dL Albumin 3.3 (3.2-5.2) g/dL Globulin 3.6 (2-4) g/dL Albumin/Globulin Ratio 0.9 L (1-3) TSH 4.52 (0.34-5.60) mcIU/mL Urine Color Urine Appearance Urine pH (5-9) Ur Specific [place] (1.010-1.030) Urine Protein (Negative) Urine Ketones (Negative) Urine Blood (Negative) Urine Nitrate (Negative) Urine Bilirubin (Negative) Urine Urobilinogen (Negative) Ur Leukocyte Esterase (Negative) Urine WBC (Auto) (Absent) Urine RBC (Auto) (Absent) Urine Bacteria (Absent) Urine Glucose (Negative) Salicylates < 2.50 (<30) mg/dL Urine Opiates Screen Presumptive positive H (None Detect) Acetaminophen < 15 mcg/mL Ur Barbiturates Screen None detected (None Detect) Ur Phencyclidine Scrn None detected (None Detect) Ur Amphetamines Screen None detected (None Detect) U Benzodiazepines Scrn None detected (None Detect) Urine Cocaine Screen None detected (None Detect) U Cannabinoids Screen None detected (None Detect) Serum Alcohol < 10 (<10) mg/dL 08/12/17 Range/Units 08:44 WBC (3.5-10.8) 10^3/ul RBC (4.0-5.4) 10^6/ul Hgb (14.0-18.0) g/dl Hct (42-52) % MCV (80-94) fL MCH (27-31) pg MCHC (31-36) g/dl RDW (10.5-15) % Plt Count (150-450) 10^3/ul MPV (7.4-10.4) um3 Neut % (Auto) (38-83) % Lymph % (Auto) (25-47) % [place] % (Auto) (1-9) % Eos % (Auto) (0-6) % Baso % (Auto) (0-2) % Absolute Neuts (auto) (1.5-7.7) 10^3/ul Absolute Lymphs (auto) (1.0-4.8) 10^3/ul Absolute Monos (auto) (0-0.8) 10^3/ul Absolute Eos (auto) (0-0.6) 10^3/ul Absolute Basos (auto) (0-0.2) 10^3/ul Absolute Nucleated RBC 10^3/ul Nucleated RBC % Sodium (133-145) mmol/L Potassium (3.5-5.0) mmol/L Chloride (101-111) mmol/L Carbon Dioxide (22-32) mmol/L Anion Gap (2-11) mmol/L BUN (6-24) mg/dL Creatinine (0.67-1.17) mg/dL Est GFR ( Amer) (>60) Est GFR (Non-Af Amer) (>60) BUN/Creatinine Ratio (8-20) Glucose (70-100) mg/dL Calcium (8.6-10.3) mg/dL Total Bilirubin (0.2-1.0) mg/dL AST (13-39) U/L ALT (7-52) U/L Alkaline Phosphatase (34-104) U/L Total Protein (6.4-8.9) g/dL Albumin (3.2-5.2) g/dL Globulin (2-4) g/dL Albumin/Globulin Ratio (1-3) TSH (0.34-5.60) mcIU/mL Urine Color Yellow Urine Appearance Clear Urine pH 7.0 (5-9) Ur Specific [place] 1.012 (1.010-1.030) Urine Protein 3+(>=500 mg/dl) H (Negative) Urine Ketones Negative (Negative) Urine Blood Negative (Negative) Urine Nitrate Negative (Negative) Urine Bilirubin Negative (Negative) Urine Urobilinogen Negative (Negative) Ur Leukocyte Esterase Negative (Negative) Urine WBC (Auto) Absent (Absent) Urine RBC (Auto) Absent (Absent) Urine Bacteria Absent (Absent) Urine Glucose 1+(50 mg/dl) H (Negative) Salicylates (<30) mg/dL Urine Opiates Screen (None Detect) Acetaminophen mcg/mL Ur Barbiturates Screen (None Detect) Ur Phencyclidine Scrn (None Detect) Ur Amphetamines Screen (None Detect) U Benzodiazepines Scrn (None Detect) Urine Cocaine Screen (None Detect) U Cannabinoids Screen (None Detect) Serum Alcohol (<10) mg/dL Result Diagrams: 08/12/17 07:45 08/12/17 07:45 Lab Statement: Any lab studies that have been ordered have been reviewed, and results considered in the medical decision making process. - EKG 07:29 Cardiac Rate: NL EKG Rhythm: Sinus Rhythm - at 61 bpm EKG Interpretation: No ST elevation. Normal axis. Course/Dx - Course Course Of Treatment: This pt is a 61 y/o male presenting to [facility] c/o recent panic attacks for the past few mornings. Pt reports that today he woke up at 03: 00 from sleep with a panic attack. He states that when he has a panic attack, he can't breathe, feels "sick to his stomach," and can't lay or sit up. Denies SI or HI. Pt notes his PCP has recently prescribed him new thyroid and chest pain medications. He reports his panic attack episodes began after these new medications. Pt denies chest pain or SOB. Test results without any significant abnormalities except for slight anemia, chronic renal failure. Urinalysis is negative for UTI. Urine toxicology shows positive presumptive for opiates. In the ED course, the pt has been stable since arrival. It seems he had a panic attack this morning. He reported he began to have these symptoms after he started to take levothyroxine. Since the pt is asymptomatic and test results are negative, I will discharge the pt home with follow up from PCP. Pt is hemodynamically stable, alert and oriented x3. - Differential Dx/Clinical Impression Differential Diagnosis/HQI/PQRI: Positive: Acute Psychosis, Anxiety, Depression Provider Diagnosis: Anxiety Discharge - Discharge Plan Condition: Stable Disposition: HOME Prescriptions: hydrOXYzine HCL TAB* [Atarax 25 MG TAB*] 25 mg PO TID PRN #20 tab PRN Reason: Anxiety Patient Education Materials: Anxiety (ED) Referrals: Daiana Bautista [Primary Care Provider] - 3 Days Additional Instructions: Please follow up with your primary care provider. RETURN TO THE ED FOR ANY WORSENING SYMPTOMS. The documentation as recorded by the Lalit gifford Angela accurately reflects the service I personally performed and the decisions made by me, Chencho Armstrong MD.
== END 2017-08-12 10:33 | disposition home or self-care (01) ==
LOC: ED 06:48
DX: F41.9 Anxiety disorder, unspecified (principal); Z88.8 Allergy status to other drugs, medicaments and biological substances
CPT/HCPCS: 36415; 80053; 80307; 80320; 80329; 81003; 81015; 84443; 85025; 93005; 99283; G0480

== ENCOUNTER 2017-08-23 11:27 | Inpatient (IN) | payer OTHER ==
[2017-08-23 12:13] LABS: ABS Basophils 0.1 10^3/ul (0-0.2); ABS Eosinophils 0.3 10^3/ul (0-0.6); ABS Lymphocytes 1.5 10^3/ul (1.0-4.8); ABS Monocytes 0.9 10^3/ul (0-0.8); ABS Neutrophils 6.2 10^3/ul (1.5-7.7); ABS Nucleated RBC 0 10^3/ul; Eosinophil % 3.1 % (0-6); Hematocrit 30 % (42-52); Lymphocyte % 16.4 % (25-47); Mean Corpuscular HGB Conc 33 g/dl (31-36); Mean Corpuscular Hemoglobin 28 pg (27-31); Mean Corpuscular Volume 84 fL (80-94); Mean Platelet Volume 8 um3 (7.4-10.4); Nucleated Red Blood Cells % 0; Platelet Count 242 10^3/ul (150-450); Red Blood Count 3.61 10^6/ul (4.0-5.4); Red Cell Distribution Width 15 % (10.5-15)
[2017-08-23 12:25] LABS: EGFR Non-African American 32.6 (>60)
--- NOTE | 2017-08-23 12:48 | RAD ---
INDICATION: 3 days shortness of breath with worsening. Hypertension. Cardiac disease. Comparison: August 18, 2017 Technique: Upright AP 1220 hours Report: Clear lungs and pleural spaces accounting for normal bronchovascular markings and superimposed soft tissues with large body habitus. Negative for pneumothorax. Top normal heart size. Unremarkable central pulmonary vasculature and mediastinal contours. IMPRESSION: No evidence for acute intrathoracic disease.
[2017-08-23 14:38] LABS: Urine Appearance Clear; Urine Blood 1+ (Negative); Urine Color Yellow; Urine Ketones Negative (Negative); Urine Protein 3+(>=500 mg/dL) (Negative); Urine Specific Gravity 1.012 (1.010-1.030); Urine Urobilinogen Negative (Negative)
[2017-08-23] MEDS ORDERED: Furosemide IV* 10 MG/ML VIAL (40 MG) IV SLOW PU ONE (15:34)
[2017-08-23] MEDS ORDERED: Dextrose 50% Syringe 50 ML* 25 GM/50 ML SYRINGE IV PUSH PRN (17:43)
--- NOTE | 2017-08-23 18:32 | ED ---
Benson Reyes Thomas, scribed for Chencho Armstrong MD on 08/23/17 at 1214 . Shortness of Breath - HPI Summary HPI Summary: The patient is a 61 year old male presenting with shortness of breath at rest for the last week. He has gained 20 pounds in the last month. He has swelling to his face, legs, and abdomen. He denies chest pain. - History of Current Complaint Chief Complaint: EDShortnessOfBreath Time Seen by Provider: 08/23/17 11:35 Hx Obtained From: Patient Onset/Duration: Lasting Weeks - 1, Still Present Current Severity: Moderate Dyspnea At: Rest Aggrevating Factors: Other - Exertion Alleviating Factors: Nothing Associated Signs & Symptoms: Negative - chest pain, Edema - face, legs, abdomen Related History: Obesity - Allergy/Home Medications Allergies/Adverse Reactions: Allergies Allergy/AdvReac Type Severity Reaction Status Date / Time MS Lisinopril [Lisinopril] Allergy Difficulty Verified 07/02/17 08:44 Breathing MS Niacin [Niacin] Allergy Rash Verified 07/02/17 08:44 PMH/Surg Hx/FS Hx/Imm Hx Endocrine/Hematology History: Reports: Hx Diabetes - TYPE 2 / ON ORAL MEDS Denies: Hx Thyroid Disease Cardiovascular History: Reports: Hx Angina, Hx Hypercholesterolemia, Hx Hypertension, Other Cardiovascular Problems/Disorders - GOUT Denies: Hx Coronary Artery Disease, Hx Myocardial Infarction, Hx Pacemaker/ ICD, Hx Valvular Heart Disease Respiratory History: Denies: Hx Asthma, Hx Chronic Obstructive Pulmonary Disease (COPD), Other Respiratory Problems/Disorders GI History: Denies: Hx Ulcer Musculoskeletal History: Reports: Hx Gout, Other Musculoskeletal History - HIP PAIN Denies: Hx Arthritis, Hx Osteoporosis, Hx Scoliosis Sensory History: Reports: Hx Contacts or Glasses Denies: Hx Hearing Aid Opthamlomology History: Reports: Hx Contacts or Glasses Neurological History: Reports: Hx Headaches Denies: Other Neuro Impairments/Disorders Psychiatric History: Reports: Hx Anxiety, Hx Panic Disorder - Surgical History Surgery Procedure, Year, and Place: POLYPS REMOVED INTESTINE. APPENDECTOMY. KNEE SURGERY 1998 Hx Anesthesia Reactions: No Infectious Disease History: No Infectious Disease History: Denies: Hx Clostridium Difficile, Hx Hepatitis, Hx Human Immunodeficiency Virus (HIV), Hx of Known/Suspected MRSA, Hx Shingles, Hx Tuberculosis, Hx Known/ Suspected VRE, Hx Known/Suspected VRSA, History Other Infectious Disease, Traveled Outside the [place] in Last 30 Days - Family History Known Family History: Positive: Cardiac Disease, Hypertension, Other - father - asthma - Social History Alcohol Use: None Hx Substance Use: No Substance Use Type: Reports: None Hx Tobacco Use: No Smoking Status (MU): Never Smoked Tobacco Review of Systems Negative: Chest Pain Positive: Shortness Of Breath Positive: Other - Abdomen swelling Positive: Edema - legs All Other Systems Reviewed And Are Negative: Yes Physical Exam - Summary Physical Exam Summary: VITAL SIGNS: Reviewed. GENERAL: Patient is an elderly male in some distress secondary to shortness of breath. . HEAD AND FACE: Swelling to the face. No signs of trauma. No ecchymosis, hematomas or skull depressions. No sinus tenderness. EYES: PERRLA, EOMI x 2, No injected conjunctiva, no nystagmus. EARS: Hearing grossly intact. Ear canals and tympanic membranes are within normal limits. MOUTH: Oropharynx within normal limits. NECK: Supple, trachea is midline, no adenopathy, no JVD, no carotid bruit, no c- spine tenderness, neck with full ROM. CHEST: Symmetric, no tenderness at palpation LUNGS: Crackles in both bases of the lungs. CVS: Regular rate and rhythm, S1 and S2 present, no murmurs or gallops appreciated. ABDOMEN: Soft, non-tender. Swelling. No rebound no guarding, and no masses palpated. Bowel sounds are normal. EXTREMITIES: Swelling to the bilateral lower extremities, 2+. FROM in all major joints, no edema, no cyanosis or clubbing. NEURO: Alert and oriented x 3. No acute neurological deficits. Speech is normal and follows commands. SKIN: Dry and warm Triage Information Reviewed: Yes Vital Signs On Initial Exam: Initial Vitals Temp Pulse Resp BP Pulse Ox 98.2 F 65 24 154/78 97 08/23/17 11:28 08/23/17 11:28 08/23/17 11:28 08/23/17 11:28 08/23/17 11:28 Vital Signs Reviewed: Yes Diagnostics - Vital Signs Vital Signs Temp Pulse Resp BP Pulse Ox 08/23/17 12:08 94 08/23/17 12:00 63 16 102/52 95 08/23/17 11:41 154/68 08/23/17 11:28 98.2 F 65 24 154/78 97 - Laboratory Lab Results: Lab Results 08/23/17 08/23/17 08/23/17 Range/Units 12:00 12:00 12:00 WBC 9.0 (3.5-10.8) 10^3/ul RBC 3.61 L (4.0-5.4) 10^6/ul Hgb 10.0 L (14.0-18.0) g/dl Hct 30 L (42-52) % MCV 84 (80-94) fL MCH 28 (27-31) pg MCHC 33 (31-36) g/dl RDW 15 (10.5-15) % Plt Count 242 (150-450) 10^3/ul MPV 8 (7.4-10.4) um3 Neut % (Auto) 69.0 (38-83) % Lymph % (Auto) 16.4 L (25-47) % Stephenson % (Auto) 10.1 H (1-9) % Eos % (Auto) 3.1 (0-6) % Baso % (Auto) 1.4 (0-2) % Absolute Neuts (auto) 6.2 (1.5-7.7) 10^3/ul Absolute Lymphs (auto) 1.5 (1.0-4.8) 10^3/ul Absolute Monos (auto) 0.9 H (0-0.8) 10^3/ul Absolute Eos (auto) 0.3 (0-0.6) 10^3/ul Absolute Basos (auto) 0.1 (0-0.2) 10^3/ul Absolute Nucleated RBC 0 10^3/ul Nucleated RBC % 0 APTT (26.0-36.3) seconds D-Dimer, Quantitative (Less Than 230) ng/mL ABG pH (7.35-7.45) ABG pCO2 (35-45) mmHg ABG pO2 (80-100) mmHg ABG HCO3 (19-31) mmol/L ABG O2 Saturation (95-98) % ABG Base Excess (-2.0-2.0) Sodium 133 (133-145) mmol/L Potassium 4.7 (3.5-5.0) mmol/L Chloride 105 (101-111) mmol/L Carbon Dioxide 22 (22-32) mmol/L Anion Gap 6 (2-11) mmol/L BUN 31 H (6-24) mg/dL Creatinine 2.09 H (0.67-1.17) mg/dL Est GFR ( Amer) 41.9 (>60) Est GFR (Non-Af Amer) 32.6 (>60) BUN/Creatinine Ratio 14.8 (8-20) Glucose 118 H (70-100) mg/dL Lactic Acid 1.6 (0.5-2.0) mmol/L Calcium 8.6 (8.6-10.3) mg/dL Total Bilirubin 0.30 (0.2-1.0) mg/dL AST 10 L (13-39) U/L ALT 10 (7-52) U/L Alkaline Phosphatase 44 (34-104) U/L Total Creatine Kinase 84 (10-223) U/L CK-MB (CK-2) 4.6 (0.6-6.3) ng/mL Troponin I 0.00 (<0.04) ng/mL C-Reactive Protein 13.32 H (< 5.00) mg/L B-Natriuretic Peptide ( - 100) pg/mL Total Protein 6.6 (6.4-8.9) g/dL Albumin 3.3 (3.2-5.2) g/dL Globulin 3.3 (2-4) g/dL Albumin/Globulin Ratio 1.0 (1-3) Urine Color Urine Appearance Urine pH (5-9) Ur Specific Hastings (1.010-1.030) Urine Protein (Negative) Urine Ketones (Negative) Urine Blood (Negative) Urine Nitrate (Negative) Urine Bilirubin (Negative) Urine Urobilinogen (Negative) Ur Leukocyte Esterase (Negative) Urine WBC (Auto) (Absent) Urine RBC (Auto) (Absent) Urine Bacteria (Absent) Urine Glucose (Negative) Influenza A (Rapid) (Negative) Influenza B (Rapid) (Negative) 08/23/17 08/23/17 08/23/17 Range/Units 12:00 12:00 12:18 WBC (3.5-10.8) 10^3/ul RBC (4.0-5.4) 10^6/ul Hgb (14.0-18.0) g/dl Hct (42-52) % MCV (80-94) fL MCH (27-31) pg MCHC (31-36) g/dl RDW (10.5-15) % Plt Count (150-450) 10^3/ul MPV (7.4-10.4) um3 Neut % (Auto) (38-83) % Lymph % (Auto) (25-47) % Stephenson % (Auto) (1-9) % Eos % (Auto) (0-6) % Baso % (Auto) (0-2) % Absolute Neuts (auto) (1.5-7.7) 10^3/ul Absolute Lymphs (auto) (1.0-4.8) 10^3/ul Absolute Monos (auto) (0-0.8) 10^3/ul Absolute Eos (auto) (0-0.6) 10^3/ul Absolute Basos (auto) (0-0.2) 10^3/ul Absolute Nucleated RBC 10^3/ul Nucleated RBC % APTT 30.9 (26.0-36.3) seconds D-Dimer, Quantitative 370 H (Less Than 230) ng/mL ABG pH (7.35-7.45) ABG pCO2 (35-45) mmHg ABG pO2 (80-100) mmHg ABG HCO3 (19-31) mmol/L ABG O2 Saturation (95-98) % ABG Base Excess (-2.0-2.0) Sodium (133-145) mmol/L Potassium (3.5-5.0) mmol/L Chloride (101-111) mmol/L Carbon Dioxide (22-32) mmol/L Anion Gap (2-11) mmol/L BUN (6-24) mg/dL Creatinine (0.67-1.17) mg/dL Est GFR ( Amer) (>60) Est GFR (Non-Af Amer) (>60) BUN/Creatinine Ratio (8-20) Glucose (70-100) mg/dL Lactic Acid (0.5-2.0) mmol/L Calcium (8.6-10.3) mg/dL Total Bilirubin (0.2-1.0) mg/dL AST (13-39) U/L ALT (7-52) U/L Alkaline Phosphatase (34-104) U/L Total Creatine Kinase (10-223) U/L CK-MB (CK-2) (0.6-6.3) ng/mL Troponin I (<0.04) ng/mL C-Reactive Protein (< 5.00) mg/L B-Natriuretic Peptide 390 H ( - 100) pg/mL Total Protein (6.4-8.9) g/dL Albumin (3.2-5.2) g/dL Globulin (2-4) g/dL Albumin/Globulin Ratio (1-3) Urine Color Urine Appearance Urine pH (5-9) Ur Specific Hastings (1.010-1.030) Urine Protein (Negative) Urine Ketones (Negative) Urine Blood (Negative) Urine Nitrate (Negative) Urine Bilirubin (Negative) Urine Urobilinogen (Negative) Ur Leukocyte Esterase (Negative) Urine WBC (Auto) (Absent) Urine RBC (Auto) (Absent) Urine Bacteria (Absent) Urine Glucose (Negative) Influenza A (Rapid) Negative (Negative) Influenza B (Rapid) Negative (Negative) 08/23/17 08/23/17 Range/Units 12:30 14:25 WBC (3.5-10.8) 10^3/ul RBC (4.0-5.4) 10^6/ul Hgb (14.0-18.0) g/dl Hct (42-52) % MCV (80-94) fL MCH (27-31) pg MCHC (31-36) g/dl RDW (10.5-15) % Plt Count (150-450) 10^3/ul MPV (7.4-10.4) um3 Neut % (Auto) (38-83) % Lymph % (Auto) (25-47) % Stephenson % (Auto) (1-9) % Eos % (Auto) (0-6) % Baso % (Auto) (0-2) % Absolute Neuts (auto) (1.5-7.7) 10^3/ul Absolute Lymphs (auto) (1.0-4.8) 10^3/ul Absolute Monos (auto) (0-0.8) 10^3/ul Absolute Eos (auto) (0-0.6) 10^3/ul Absolute Basos (auto) (0-0.2) 10^3/ul Absolute Nucleated RBC 10^3/ul Nucleated RBC % APTT (26.0-36.3) seconds D-Dimer, Quantitative (Less Than 230) ng/mL ABG pH 7.38 (7.35-7.45) ABG pCO2 38 (35-45) mmHg ABG pO2 68 L (80-100) mmHg ABG HCO3 23.0 (19-31) mmol/L ABG O2 Saturation 97.4 (95-98) % ABG Base Excess -2.4 L (-2.0-2.0) Sodium (133-145) mmol/L Potassium (3.5-5.0) mmol/L Chloride (101-111) mmol/L Carbon Dioxide (22-32) mmol/L Anion Gap (2-11) mmol/L BUN (6-24) mg/dL Creatinine (0.67-1.17) mg/dL Est GFR ( Amer) (>60) Est GFR (Non-Af Amer) (>60) BUN/Creatinine Ratio (8-20) Glucose (70-100) mg/dL Lactic Acid (0.5-2.0) mmol/L Calcium (8.6-10.3) mg/dL Total Bilirubin (0.2-1.0) mg/dL AST (13-39) U/L ALT (7-52) U/L Alkaline Phosphatase (34-104) U/L Total Creatine Kinase (10-223) U/L CK-MB (CK-2) (0.6-6.3) ng/mL Troponin I (<0.04) ng/mL C-Reactive Protein (< 5.00) mg/L B-Natriuretic Peptide ( - 100) pg/mL Total Protein (6.4-8.9) g/dL Albumin (3.2-5.2) g/dL Globulin (2-4) g/dL Albumin/Globulin Ratio (1-3) Urine Color Yellow Urine Appearance Clear Urine pH 5.0 (5-9) Ur Specific Hastings 1.012 (1.010-1.030) Urine Protein 3+(>=500 mg/dl) H (Negative) Urine Ketones Negative (Negative) Urine Blood 1+ H (Negative) Urine Nitrate Negative (Negative) Urine Bilirubin Negative (Negative) Urine Urobilinogen Negative (Negative) Ur Leukocyte Esterase Negative (Negative) Urine WBC (Auto) Trace(0-5/hpf) (Absent) Urine RBC (Auto) Trace(0-2/hpf) (Absent) Urine Bacteria Absent (Absent) Urine Glucose 1+(50 mg/dl) H (Negative) Influenza A (Rapid) (Negative) Influenza B (Rapid) (Negative) Result Diagrams: 08/23/17 12:00 08/23/17 12:00 Lab Statement: Any lab studies that have been ordered have been reviewed, and results considered in the medical decision making process. - Radiology CXR Xray Interpretation: No Acute Changes - No evidence for acute intrathoracic disease. Dr. Armstrong has reviewed this report. Radiology Interpretation Completed By: Radiologist - EKG 11:44 Cardiac Rate: NL EKG Rhythm: Sinus Rhythm - at 61 BPM EKG Interpretation: No ST elevations. Course/Dx - Course Assessment/Plan: The patient is a 61 year old male presenting with shortness of breath at rest for the last week. He has gained 20 pounds in the last month. He has swelling to his face, legs, and abdomen. He denies chest pain. Test results are without significant abnormalities except a slight anemia, chronic renal failure, BNP 390, urinalysis negative for UTI. ABG shows 7.38, pCO2 38, pO2 68, H203 23, O2 sat 97.4, and base excess -2.4. Influenza A and B are negative. In the ED course, the patient was given Lasix. The patient was asked to ambulate, but when he does so he becomes short of breath with taking only ten steps. The D -dimer is elevated; however, because of renal failure, I am unable to do a CTA of the chest. Therefore, we will do a VQ scan, but VQ scan is not available on the weekends at this hospital. I discussed the case with Dr. Steel, who accepts the patient for admission. She will treat the patient prophylactically for PE. The patient is hemodynamically stable and alert and oriented x3. - Diagnoses Differential Diagnosis/HQI/PQRI: Positive: Bronchitis, CHF, Chest Wall Pain, COPD Exacerbation, Pneumonia, Pulmonary Embolism Provider Diagnoses: Bilateral lower extremity edema, CHF (congestive heart failure), Rule out PE - Physician Notifications Discussed Care of Patient With: Emily Steel Time Discussed With Above Provider: 15:52 Instructed by Provider To: Admit As Inpatient Discharge - Discharge Plan Condition: Stable Disposition: ADMITTED TO [facility] documentation as recorded by the Benson gifford Thomas accurately reflects the service I personally performed and the decisions made by , Chencho Armstrong MD.
[2017-08-23] MEDS: Furosemide IV* 10 MG/ML 10 ML VIAL (100 MG) IV SCH (21:09)
[2017-08-23] MEDS: Heparin VIAL(*) 5000 UNITS/ML VIAL (FIVE THOUSAND) SUBCUT SCH (21:15)
[2017-08-23] MEDS: Insulin LISPRO* 1 UNITS UNIT SUBCUT SCH (21:15)
--- NOTE | 2017-08-23 23:10 | HP ---
CC: Daiana Bautista NP * HISTORY AND PHYSICAL: DATE OF ADMISSION: 08/23/17 PRIMARY CARE PROVIDER: Daiana Bautista NP, from [facility]. CHIEF COMPLAINT: "Swollen all over and can't breathe." HISTORY OF PRESENT ILLNESS: Mr. Carrillo is a 61-year-old male with history of hypertension, hyperlipidemia, diabetes, chronic kidney disease, who presented to the hospital complaining of gaining 20 pounds in the past 2 weeks. The patient stated it originally started around the time of 08/12/17 when he presented to the emergency department complaining of attacks of anxiety when he lies flat in the middle of the night. He was treated with Thorazine and discharged home. A week later, he saw his primary care provider who started him on a "diuretic," but the diuretic did not work and the patient continued to gain weight. Today, he presented with generalized edema with oxygen saturation in the high 80% on room air. He is going to be admitted with diagnosis of anasarca. PAST MEDICAL HISTORY: 1. Hypertension. 2. Hyperlipidemia. 3. Diabetes, type 2. 4. Anxiety. 5. History of gout. 6. History of chronic kidney disease, stage 3. PAST SURGICAL HISTORY: Appendectomy, knee surgery. MEDICATIONS: Include: 1. He was recently started on unknown diuretic. 2. Metoprolol succinate 125 mg daily. 3. Levothyroxine 25 mcg daily. 4. Imdur 30 mg daily. 5. Vitamin D3 3000 units daily. 6. Aspirin 81 mg daily. 7. Metformin 1000 mg daily. 8. Hydroxyzine 25 mg 3 times a day. 9. Amlodipine 10 mg daily. ALLERGIES: Include LISINOPRIL and NIACIN. FAMILY HISTORY: Positive for father with history of MD and pacemaker. SOCIAL HISTORY: The patient is on disability for what he states was a bad episode of Lyme disease a couple of years ago and problems with bilateral hips ever since. He denies any tobacco, alcohol, or drug use. He lives alone. His surrogate decision maker is his son. REVIEW OF SYSTEMS: Positive for paroxysmal nocturnal dyspnea. Positive for orthopnea. Positive for weight gain of approximately 20 pounds. Positive for shortness of breath. All the remaining 12 systems were reviewed with the patient, and were otherwise negative. PHYSICAL EXAMINATION GENERAL: The patient is a very pleasant 61-year-old male, whose weight is 240 pounds. The patient is in no acute distress. Alert, awake, and oriented x3. VITAL SIGNS: Blood pressure of 147/80, heart rate of 59 and regular, respiratory rate 12, oxygen saturation 95% on 2 L oxygen via nasal cannula, temperature of 98.2. HEENT: Head: Atraumatic, normocephalic. Eyes: Pupils are equal and reactive to light and accommodation. Oropharynx clear. Mucosa moist. NECK: Supple. Positive for JVD bilaterally. No bruits bilaterally. RESPIRATORY: Diffuse rales in bilateral lung auscultation. ABDOMEN: Protuberant, distended, soft, nontender. Bowel sounds are present in all 4 quadrants. EXTREMITIES: There is +2 pitting pedal edema over the entire bilateral lower extremities. Pulses are poorly palpable. There is edema, but there is good capillary refill and no clubbing or cyanosis. PSYCHIATRIC: Oriented x3, with no evidence of anxiety or depression. NEURO: Cranial nerves II through XII grossly intact. Motor strength is 5/5 bilaterally. SKIN: On evaluation of the skin, no ecchymotic areas or rashes noted. DIAGNOSTIC STUDIES/LAB DATA: Showed white blood cell count of 9.0, hemoglobin 10.3, hematocrit 30, and platelets 242. Sodium 133, potassium 4.7, chloride 105 , carbon dioxide 22, BUN 31, creatinine 2.09. Liver function tests are unremarkable. Brain natriuretic peptide was 390. C-reactive protein was 13. TSH last checked on 08/12/17 was 4.5. D-dimer of 370 consistent with prior report. ABG showed pH of 7.38, PCO2 of 38, PO2 of 68. Urinalysis shows +3 protein, otherwise unremarkable. Portable chest x-ray. Impression: "No evidence of acute intrathoracic disease. " EKG shows normal sinus rhythm with heart rate of 61 beats per minute with nonspecific intraventricular conduction delay. No ST changes. ASSESSMENT AND PLAN: 1. Generalized anasarca and the patient with history of chronic kidney disease and proteinuria on urinalysis. At this point, the patient is going to be evaluated for possibility of nephrotic syndrome versus CHF. The patient is going to be admitted to telemetry monitored bed and diuresed with intravenous Lasix. Daily weights as well as input and output summaries are going to be obtained. I will also evaluate the patient for nephrotic syndrome with 24-hour urine collection for protein. 2. In regards to the patient's diabetes, metformin is going to be held. I do not believe the patient should be on metformin for his creatinine at baseline of above 2. He is going to be on insulin sliding scale for the time being. 3. For hypertension, the patient is going to be continued on metoprolol, but I will hold the patient's Imdur and Norvasc. I suspect the patient's blood pressure may be lower once diureses started. 4. In regards to elevated D-dimer, at this point, the patient's D-dimer had been elevated in the past at the same level. He does not complain of chest pain , he has rales on lung evaluation. I suspect the congestive heart failure and anasarca is more likely cause of the patient's hypoxemia and not pulmonary embolism. 5. For DVT prophylaxis, the patient is going to be placed on heparin subcutaneously. 6. The patient's code status is full. His surrogate is his son. TIME SPENT: Approximately 65 minutes was spent on admission of this patient, more than half that time was spent [id number] with the patient doing the interview and physical exam. [id number]/CPS #: [id number] MTDD
[2017-08-24] MEDS: Albuterol 2.5 MG/3 ML NEB.SOL* (0.083%) INH PRN ×2 (04:55→15:38)
[2017-08-24] MEDS: Levothyroxine TAB* 25 MCG TAB PO SCH (05:44)
[2017-08-24] MEDS: Heparin VIAL(*) 5000 UNITS/ML VIAL (FIVE THOUSAND) SUBCUT SCH ×3 (05:45→20:55)
[2017-08-24 06:30] LABS: ABS Basophils 0.1 10^3/ul (0-0.2); ABS Eosinophils 0.2 10^3/ul (0-0.6); ABS Lymphocytes 1.6 10^3/ul (1.0-4.8); ABS Monocytes 0.8 10^3/ul (0-0.8); ABS Neutrophils 5.1 10^3/ul (1.5-7.7); ABS Nucleated RBC 0 10^3/ul; Eosinophil % 2.3 % (0-6); Hematocrit 29 % (42-52); Hemoglobin 9.9 g/dl (14.0-18.0); Lymphocyte % 20.3 % (25-47); Mean Corpuscular HGB Conc 34 g/dl (31-36); Mean Corpuscular Hemoglobin 28 pg (27-31); Mean Corpuscular Volume 82 fL (80-94); Mean Platelet Volume 8 um3 (7.4-10.4); Nucleated Red Blood Cells % 0; Platelet Count 239 10^3/ul (150-450); Red Blood Count 3.54 10^6/ul (4.0-5.4); Red Cell Distribution Width 15 % (10.5-15); White Blood Count 7.8 10^3/ul (3.5-10.8)
[2017-08-24 06:39] LABS: EGFR Non-African American 30.2 (>60)
[2017-08-24] MEDS: Insulin LISPRO* 1 UNITS UNIT SUBCUT SCH ×4 (08:22→20:54)
[2017-08-24] MEDS: Furosemide IV* 10 MG/ML 10 ML VIAL (100 MG) IV SCH ×2 (08:40→16:49)
[2017-08-24] MEDS: Aspirin EC Low Dose* 81 MG TAB.EC PO SCH (08:40)
[2017-08-24] MEDS: Cholecalciferol TAB* 1000 UNITS PO SCH (08:40)
[2017-08-24] MEDS: Metoprolol Succinate XL TAB* 50 MG PO SCH (08:41)
--- NOTE | 2017-08-24 12:50 | ECHO ---
Patient: GISELLE SOLANO [facility] Rec#: [id number] : 1955 Date: 08/24/2017 Age: 61y Height: 177.8 cm / 70.0 in Weight: 106.6 kg / 234.9 lbs Sex: M BSA: 2.2 Room#: 447 Admit Date#: 08/23/2017 Type: Inpatient Referring: Emily Steel MD Reading: Trey Garcia MD Cafeteria Aide: Velvet Espinal RN RDCS CC: Daiana Bautista Transthoracic Echocardiogram Indication: CHF, anasarca BP: 134/47 HR: 68 Rhythm: NSR Findings History: HTN, HLD, DM, CKD, obesity Technical Comments: The study quality is fair. The study is technically limited due to patient body habitus. Completed at 1130. Left Ventricle: The left ventricular chamber size is normal. Mild to moderate concentric left ventricular hypertrophy is observed. There is a prominent septal knuckle.and mild dynamic LVOT obstruction. Global left ventricular wall motion and contractility are within normal limits. There is normal left ventricular systolic function. The estimated ejection fraction is 60-65%. There is septal flattening of the interventricular septum consistent with right ventricular volume or pressure overload. Abnormal left ventricular diastolic function is observed. The left ventricular diastolic filling pattern is consistent with pseudonormalization. Left Atrium: The left atrium is slightly dilated. Right Ventricle: The right ventricle wall thickness is mildly increased. The right ventricular cavity size is normal. The right ventricular global systolic function is normal. Right Atrium: The right atrial cavity size is normal. Aortic Valve: The aortic valve is trileaflet. The aortic valve leaflets are mildly thickened. There is aortic annular calcification. There is no evidence of aortic regurgitation. There is no evidence of aortic stenosis. Mitral Valve: The mitral valve leaflets are mildly thickened. There is mild mitral regurgitation. There is no evidence of mitral stenosis. Tricuspid Valve: The tricuspid valve leaflets are normal. There is trace to mild tricuspid regurgitation. Unable to estimate the right ventricular systolic pressure. Pulmonic Valve: The pulmonic valve appears normal. There is a trace pulmonic regurgitation. There is no pulmonic stenosis. Pericardium: There is no significant pericardial effusion. A pericardial fat pad is visualized. Aorta: There is mild dilatation of the ascending aorta. The aortic arch is not well visualized. There is no dilation of the aortic root. Pulmonary Artery: The main pulmonary artery is not well visualized. Venous: The inferior vena cava is dilated. There is less than 50% respiratory change in the inferior vena cava dimension. Summary: There was not any prior study for comparison. Conclusions Mild to moderate concentric left ventricular hypertrophy is observed. There is a prominent septal knuckle and mild dynamic LVOT obstruction. The estimated ejection fraction is 60-65%. There is septal flattening of the interventricular septum consistent with right ventricular volume or pressure overload. The left ventricular diastolic filling pattern is consistent with pseudonormalization. The right ventricle wall thickness is mildly increased. The aortic valve leaflets are mildly thickened. There is mild mitral regurgitation. There is trace to mild tricuspid regurgitation. Measurements Name Value Normal Range RVDdMajor (2D) 4.4 cm (2.2 - 4.4) RVAW (2D) 0.9 cm (0.2 - 0.5) RAd ISD 4CH 4.7 cm (3.4 - 4.9) RA (A4C)W 4 cm (2.9 - 4.6) IVSd (2D) 1.4 cm (0.6 - 1) LVPWd (2D) 1.3 cm (0.6 - 1) LVIDd (2D) 4 cm (3.6 - 5.4) LVIDs (2D) 3.1 cm - LV FS (2D) 23 % (25 - 45) Aortic Annulus 2 cm (1.4 - 2.6) Ao root diameter (2D) 2.8 cm (2.1 - 3.5) Ascending Ao 3.5 cm (2.1 - 3.4) LA dimension (AP) 2D 3.5 cm (2.3 - 3.8) LAd ISD 4CH 5.4 cm (2.9 - 5.3) LA ISD 4CH W 3.9 cm (2.5 - 4.5) Name Value Normal Range LA ESV SP 4CH (A/L) 58 ml - LA ESV SP 2CH (A/L) 70 ml - LA ESV BP (A/L) 68 ml - LA ESV BP (A/L) index 31 ml/m2 - LA ESV SP 4CH (MOD) 49 ml - LA ESV SP 2CH (MOD) 65 ml - Name Value Normal Range MV E-wave Vmax 1.5 m/sec - MV deceleration time 185 msec - MV A-wave Vmax 0.9 m/sec - MV E:A ratio 1.7 ratio - LV septal e' Vmax 0.08 m/sec - LV lateral e' Vmax 0.09 m/sec - LV E:e' septal ratio 18.8 ratio - LV E:e' lateral ratio 16.7 ratio - Name Value Normal Range AV Vmax 2.2 m/sec - AV VTI 50.2 cm - AV peak gradient 19.5 mmHg - AV mean gradient 10.4 mmHg - LVOT diameter 2 cm - LVOT Vmax 2.2 m/sec - LVOT VTI 46.7 cm - LVOT peak gradient 19 mmHg - LVOT mean gradient 10 mmHg - LAURA (continuity Vmax) 3.2 cm2 - LAURA (continuity VTI) 3 cm2 - Name Value Normal Range MV Vmax 1.6 m/sec - MV VTI 43.8 cm - MV peak gradient 10.3 mmHg - MV mean gradient 3.7 mmHg - MV PHT 81 msec - MVA (PHT) 2.7 cm2 - MVA (continuity VTI) 3.5 cm2 - Name Value Normal Range IVC diameter 2.2 cm - Name Value Normal Range PV Vmax 1.2 m/sec -
--- NOTE | 2017-08-24 15:23 | PN ---
Subjective Date of Service: 08/24/17 Interval History: pt feels a little better. Still SOB, urinating "a lot" Objective Active Medications: Acetaminophen (Tylenol Tab*) 650 mg PO Q4H PRN PRN Reason: FEVER/PAIN Albuterol (Ventolin 2.5 Mg/3 Ml Neb.Janessa*) 2.5 mg INH [id number] AWAKE PRN PRN Reason: sob/wheezing Last Admin: 08/24/17 04:55 Dose: 2.5 mg Albuterol/Ipratropium (Duoneb (Albuterol 2.5 Mg/Ipratropium 0.5 Mg)) 1 neb INH [id number] AWAKE [facility] Aspirin (Aspirin Ec Low Dose*) 81 mg PO DAILY [facility] Last Admin: 08/24/17 08:40 Dose: 81 mg Cholecalciferol (Vitamin D Tab*) 3,000 units PO DAILY [facility] Last Admin: 08/24/17 08:40 Dose: 3,000 units Dextrose (D50w Syringe 50 Ml*) 12.5 gm IV PUSH .FOR FS < 60 - SS PRN PRN Reason: FS < 60 Furosemide (Lasix Iv*) 40 mg IV 0800,1700 [facility] Last Admin: 08/24/17 08:40 Dose: 40 mg Heparin Sodium (Porcine) (Heparin Vial(*)) 5,000 units SUBCUT Q8HR [facility] Last Admin: 08/24/17 14:04 Dose: 5,000 units Hydroxyzine HCl (Atarax Tab*) 25 mg PO TID PRN PRN Reason: ANXIETY Insulin Human Lispro (Humalog*) 0 units SUBCUT ACHS [facility] PRN Reason: Protocol Last Admin: 08/24/17 12:39 Dose: 1 unit Levothyroxine Sodium (Synthroid Tab*) 25 mcg PO DAILY@0600 [facility] Last Admin: 08/24/17 05:44 Dose: 25 mcg Metoprolol Succinate (Toprol Xl Tab*) 125 mg PO DAILY [facility] Last Admin: 08/24/17 08:41 Dose: 125 mg Vital Signs - 8 hr 08/24/17 08/24/17 08/24/17 07:45 08:00 11:36 Temperature 98.0 F 97.8 F Pulse Rate 67 58 Respiratory 16 16 20 Rate Blood Pressure 155/75 151/71 (mmHg) O2 Sat by Pulse 92 97 Oximetry Oxygen Devices in Use Now: None Appearance: 61 yo m in nAD, aAOx3 Eyes: No Scleral Icterus Ears/Nose/Mouth/Throat: NL Teeth, Lips, Gums, Mucous Membranes Moist Neck: NL Appearance and Movements; NL JVP, Trachea Midline Respiratory: - - rales b/l upper lung wheezes b/l Cardiovascular: NL Sounds; No Murmurs; No JVD, RRR Abdominal: NL Sounds; No Tenderness; No Distention Lymphatic: No Cervical Adenopathy Extremities: No Clubbing, Cyanosis, - - b/l leg edema +2 Skin: No Rash or Ulcers, No Nodules or Sclerosis Result Diagrams: 08/24/17 06:09 08/24/17 06:09 Additional Lab and Data: Lab Results 08/23/17 08/23/17 08/23/17 Range/Units 12:00 12:00 12:00 WBC 9.0 (3.5-10.8) 10^3/ul RBC 3.61 L (4.0-5.4) 10^6/ul Hgb 10.0 L (14.0-18.0) g/dl Hct 30 L (42-52) % MCV 84 (80-94) fL MCH 28 (27-31) pg MCHC 33 (31-36) g/dl RDW 15 (10.5-15) % Plt Count 242 (150-450) 10^3/ul MPV 8 (7.4-10.4) um3 Neut % (Auto) 69.0 (38-83) % Lymph % (Auto) 16.4 L (25-47) % [place] % (Auto) 10.1 H (1-9) % Eos % (Auto) 3.1 (0-6) % Baso % (Auto) 1.4 (0-2) % Absolute Neuts (auto) 6.2 (1.5-7.7) 10^3/ul Absolute Lymphs (auto) 1.5 (1.0-4.8) 10^3/ul Absolute Monos (auto) 0.9 H (0-0.8) 10^3/ul Absolute Eos (auto) 0.3 (0-0.6) 10^3/ul Absolute Basos (auto) 0.1 (0-0.2) 10^3/ul Absolute Nucleated RBC 0 10^3/ul Nucleated RBC % 0 APTT (26.0-36.3) seconds D-Dimer, Quantitative (Less Than 230) ng/mL ABG pH (7.35-7.45) ABG pCO2 (35-45) mmHg ABG pO2 (80-100) mmHg ABG HCO3 (19-31) mmol/L ABG O2 Saturation (95-98) % ABG Base Excess (-2.0-2.0) Sodium 133 (133-145) mmol/L Potassium 4.7 (3.5-5.0) mmol/L Chloride 105 (101-111) mmol/L Carbon Dioxide 22 (22-32) mmol/L Anion Gap 6 (2-11) mmol/L BUN 31 H (6-24) mg/dL Creatinine 2.09 H (0.67-1.17) mg/dL Est GFR ( Amer) 41.9 (>60) Est GFR (Non-Af Amer) 32.6 (>60) BUN/Creatinine Ratio 14.8 (8-20) Glucose 118 H (70-100) mg/dL Lactic Acid 1.6 (0.5-2.0) mmol/L Calcium 8.6 (8.6-10.3) mg/dL Total Bilirubin 0.30 (0.2-1.0) mg/dL AST 10 L (13-39) U/L ALT 10 (7-52) U/L Alkaline Phosphatase 44 (34-104) U/L Total Creatine Kinase 84 (10-223) U/L CK-MB (CK-2) 4.6 (0.6-6.3) ng/mL Troponin I 0.00 (<0.04) ng/mL C-Reactive Protein 13.32 H (< 5.00) mg/L B-Natriuretic Peptide ( - 100) pg/mL Total Protein 6.6 (6.4-8.9) g/dL Albumin 3.3 (3.2-5.2) g/dL Globulin 3.3 (2-4) g/dL Albumin/Globulin Ratio 1.0 (1-3) Urine Color Urine Appearance Urine pH (5-9) Ur Specific [place] (1.010-1.030) Urine Protein (Negative) Urine Ketones (Negative) Urine Blood (Negative) Urine Nitrate (Negative) Urine Bilirubin (Negative) Urine Urobilinogen (Negative) Ur Leukocyte Esterase (Negative) Urine WBC (Auto) (Absent) Urine RBC (Auto) (Absent) Urine Bacteria (Absent) Urine Glucose (Negative) Influenza A (Rapid) (Negative) Influenza B (Rapid) (Negative) 08/23/17 08/23/17 08/23/17 Range/Units 12:00 12:00 12:18 WBC (3.5-10.8) 10^3/ul RBC (4.0-5.4) 10^6/ul Hgb (14.0-18.0) g/dl Hct (42-52) % MCV (80-94) fL MCH (27-31) pg MCHC (31-36) g/dl RDW (10.5-15) % Plt Count (150-450) 10^3/ul MPV (7.4-10.4) um3 Neut % (Auto) (38-83) % Lymph % (Auto) (25-47) % [place] % (Auto) (1-9) % Eos % (Auto) (0-6) % Baso % (Auto) (0-2) % Absolute Neuts (auto) (1.5-7.7) 10^3/ul Absolute Lymphs (auto) (1.0-4.8) 10^3/ul Absolute Monos (auto) (0-0.8) 10^3/ul Absolute Eos (auto) (0-0.6) 10^3/ul Absolute Basos (auto) (0-0.2) 10^3/ul Absolute Nucleated RBC 10^3/ul Nucleated RBC % APTT 30.9 (26.0-36.3) seconds D-Dimer, Quantitative 370 H (Less Than 230) ng/mL ABG pH (7.35-7.45) ABG pCO2 (35-45) mmHg ABG pO2 (80-100) mmHg ABG HCO3 (19-31) mmol/L ABG O2 Saturation (95-98) % ABG Base Excess (-2.0-2.0) Sodium (133-145) mmol/L Potassium (3.5-5.0) mmol/L Chloride (101-111) mmol/L Carbon Dioxide (22-32) mmol/L Anion Gap (2-11) mmol/L BUN (6-24) mg/dL Creatinine (0.67-1.17) mg/dL Est GFR ( Amer) (>60) Est GFR (Non-Af Amer) (>60) BUN/Creatinine Ratio (8-20) Glucose (70-100) mg/dL Lactic Acid (0.5-2.0) mmol/L Calcium (8.6-10.3) mg/dL Total Bilirubin (0.2-1.0) mg/dL AST (13-39) U/L ALT (7-52) U/L Alkaline Phosphatase (34-104) U/L Total Creatine Kinase (10-223) U/L CK-MB (CK-2) (0.6-6.3) ng/mL Troponin I (<0.04) ng/mL C-Reactive Protein (< 5.00) mg/L B-Natriuretic Peptide 390 H ( - 100) pg/mL Total Protein (6.4-8.9) g/dL Albumin (3.2-5.2) g/dL Globulin (2-4) g/dL Albumin/Globulin Ratio (1-3) Urine Color Urine Appearance Urine pH (5-9) Ur Specific [place] (1.010-1.030) Urine Protein (Negative) Urine Ketones (Negative) Urine Blood (Negative) Urine Nitrate (Negative) Urine Bilirubin (Negative) Urine Urobilinogen (Negative) Ur Leukocyte Esterase (Negative) Urine WBC (Auto) (Absent) Urine RBC (Auto) (Absent) Urine Bacteria (Absent) Urine Glucose (Negative) Influenza A (Rapid) Negative (Negative) Influenza B (Rapid) Negative (Negative) 08/23/17 08/23/17 Range/Units 12:30 14:25 WBC (3.5-10.8) 10^3/ul RBC (4.0-5.4) 10^6/ul Hgb (14.0-18.0) g/dl Hct (42-52) % MCV (80-94) fL MCH (27-31) pg MCHC (31-36) g/dl RDW (10.5-15) % Plt Count (150-450) 10^3/ul MPV (7.4-10.4) um3 Neut % (Auto) (38-83) % Lymph % (Auto) (25-47) % [place] % (Auto) (1-9) % Eos % (Auto) (0-6) % Baso % (Auto) (0-2) % Absolute Neuts (auto) (1.5-7.7) 10^3/ul Absolute Lymphs (auto) (1.0-4.8) 10^3/ul Absolute Monos (auto) (0-0.8) 10^3/ul Absolute Eos (auto) (0-0.6) 10^3/ul Absolute Basos (auto) (0-0.2) 10^3/ul Absolute Nucleated RBC 10^3/ul Nucleated RBC % APTT (26.0-36.3) seconds D-Dimer, Quantitative (Less Than 230) ng/mL ABG pH 7.38 (7.35-7.45) ABG pCO2 38 (35-45) mmHg ABG pO2 68 L (80-100) mmHg ABG HCO3 23.0 (19-31) mmol/L ABG O2 Saturation 97.4 (95-98) % ABG Base Excess -2.4 L (-2.0-2.0) Sodium (133-145) mmol/L Potassium (3.5-5.0) mmol/L Chloride (101-111) mmol/L Carbon Dioxide (22-32) mmol/L Anion Gap (2-11) mmol/L BUN (6-24) mg/dL Creatinine (0.67-1.17) mg/dL Est GFR ( Amer) (>60) Est GFR (Non-Af Amer) (>60) BUN/Creatinine Ratio (8-20) Glucose (70-100) mg/dL Lactic Acid (0.5-2.0) mmol/L Calcium (8.6-10.3) mg/dL Total Bilirubin (0.2-1.0) mg/dL AST (13-39) U/L ALT (7-52) U/L Alkaline Phosphatase (34-104) U/L Total Creatine Kinase (10-223) U/L CK-MB (CK-2) (0.6-6.3) ng/mL Troponin I (<0.04) ng/mL C-Reactive Protein (< 5.00) mg/L B-Natriuretic Peptide ( - 100) pg/mL Total Protein (6.4-8.9) g/dL Albumin (3.2-5.2) g/dL Globulin (2-4) g/dL Albumin/Globulin Ratio (1-3) Urine Color Yellow Urine Appearance Clear Urine pH 5.0 (5-9) Ur Specific [place] 1.012 (1.010-1.030) Urine Protein 3+(>=500 mg/dl) H (Negative) Urine Ketones Negative (Negative) Urine Blood 1+ H (Negative) Urine Nitrate Negative (Negative) Urine Bilirubin Negative (Negative) Urine Urobilinogen Negative (Negative) Ur Leukocyte Esterase Negative (Negative) Urine WBC (Auto) Trace(0-5/hpf) (Absent) Urine RBC (Auto) Trace(0-2/hpf) (Absent) Urine Bacteria Absent (Absent) Urine Glucose 1+(50 mg/dl) H (Negative) Influenza A (Rapid) (Negative) Influenza B (Rapid) (Negative) Assess/Plan/Problems-Billing Assessment: 61 yo M with h/o HTN, CKD stage 3, DM presents with anasarca - Patient Problems (1) Anasarca associated with disorder of kidney Comment: suspect due to proteinuria 24 U collection for protein is pending cont Lasix slowsly improving (2) HTN (hypertension) Comment: SBP now 140-150s. cont metoprolol , restart amlodipine. Patient has a severe allergy to lisinopril in the past. Holding Imdur (3) Diabetes Comment: holding metformin due to creatinine>1.5. cont ISS (4) CKD stage 3 due to type 2 diabetes mellitus Comment: creat at baseline (5) DVT prophylaxis Comment: - SQ heparin. Status and Disposition: inpatient
[2017-08-24] MEDS: amLODIPine TAB* 5 MG PO SCH (16:49)
[2017-08-24] MEDS ORDERED: Albuterol/Ipratropium NEB.SOL* Albuterol 2.5 MG/Ipratropium 0.5 MG 3 ML INH SCH (19:00)
[2017-08-24] MEDS: Albuterol/Ipratropium NEB.SOL* Albuterol 2.5 MG/Ipratropium 0.5 MG 3 ML INH SCH (21:06)
[2017-08-25] MEDS: Albuterol/Ipratropium NEB.SOL* Albuterol 2.5 MG/Ipratropium 0.5 MG 3 ML INH SCH ×4 (01:35→20:54)
[2017-08-25] MEDS: Heparin VIAL(*) 5000 UNITS/ML VIAL (FIVE THOUSAND) SUBCUT SCH ×3 (05:38→21:12)
[2017-08-25] MEDS: Levothyroxine TAB* 25 MCG TAB PO SCH (05:38)
[2017-08-25 06:30] LABS: EGFR Non-African American 29.3 (>60)
[2017-08-25] MEDS: Furosemide IV* 10 MG/ML 10 ML VIAL (100 MG) IV SCH ×2 (08:50→17:09)
[2017-08-25] MEDS: Cholecalciferol TAB* 1000 UNITS PO SCH (08:51)
[2017-08-25] MEDS: Aspirin EC Low Dose* 81 MG TAB.EC PO SCH (08:51)
[2017-08-25] MEDS: Metoprolol Succinate XL TAB* 50 MG PO SCH (08:51)
[2017-08-25] MEDS: Insulin LISPRO* 1 UNITS UNIT SUBCUT SCH ×4 (08:52→20:47)
[2017-08-25] MEDS: amLODIPine TAB* 5 MG PO SCH (08:52)
[2017-08-25] MEDS: Isosorbide Mononitrate ER TAB* 30 MG PO SCH (08:58)
[2017-08-25] MEDS: Acetaminophen TAB* 325 MG PO PRN (10:56)
--- NOTE | 2017-08-25 16:39 | PN ---
Subjective Date of Service: 08/25/17 Interval History: pt feels less SOB, legs still swollen Objective Active Medications: Acetaminophen (Tylenol Tab*) 650 mg PO Q4H PRN PRN Reason: FEVER/PAIN Last Admin: 08/25/17 10:56 Dose: 650 mg Albuterol (Ventolin 2.5 Mg/3 Ml Neb.Janessa*) 2.5 mg INH [id number] AWAKE PRN PRN Reason: sob/wheezing Last Admin: 08/24/17 15:38 Dose: 2.5 mg Albuterol/Ipratropium (Duoneb (Albuterol 2.5 Mg/Ipratropium 0.5 Mg)) 1 neb INH [id number] AWAKE [facility] Last Admin: 08/25/17 13:07 Dose: 1 neb Amlodipine Besylate (Norvasc Tab*) 10 mg PO DAILY [facility] Last Admin: 08/25/17 08:52 Dose: 10 mg Aspirin (Aspirin Ec Low Dose*) 81 mg PO DAILY [facility] Last Admin: 08/25/17 08:51 Dose: 81 mg Cholecalciferol (Vitamin D Tab*) 3,000 units PO DAILY [facility] Last Admin: 08/25/17 08:51 Dose: 3,000 units Dextrose (D50w Syringe 50 Ml*) 12.5 gm IV PUSH .FOR FS < 60 - SS PRN PRN Reason: FS < 60 Furosemide (Lasix Iv*) 40 mg IV 0800,1700 [facility] Last Admin: 08/25/17 08:50 Dose: 40 mg Heparin Sodium (Porcine) (Heparin Vial(*)) 5,000 units SUBCUT Q8HR [facility] Last Admin: 08/25/17 14:16 Dose: 5,000 units Hydroxyzine HCl (Atarax Tab*) 25 mg PO TID PRN PRN Reason: ANXIETY Insulin Human Lispro (Humalog*) 0 units SUBCUT ACHS [facility] PRN Reason: Protocol Last Admin: 08/25/17 12:32 Dose: Not Given Isosorbide Mononitrate (Imdur Er Tab*) 30 mg PO DAILY [facility] Last Admin: 08/25/17 08:58 Dose: 30 mg Levothyroxine Sodium (Synthroid Tab*) 25 mcg PO DAILY@0600 [facility] Last Admin: 08/25/17 05:38 Dose: 25 mcg Metoprolol Succinate (Toprol Xl Tab*) 125 mg PO DAILY [facility] Last Admin: 08/25/17 08:51 Dose: 125 mg Vital Signs - 8 hr 08/25/17 08/25/17 11:24 13:07 Temperature 98.8 F Pulse Rate 63 67 Respiratory 18 17 Rate Blood Pressure 155/72 (mmHg) O2 Sat by Pulse 97 95 Oximetry Oxygen Devices in Use Now: None Appearance: 61 yo M in NAD, AAOx3 Eyes: No Scleral Icterus, PERRLA Ears/Nose/Mouth/Throat: NL Teeth, Lips, Gums, Mucous Membranes Moist Neck: NL Appearance and Movements; NL JVP, Trachea Midline Respiratory: Symmetrical Chest Expansion and Respiratory Effort, - - crackles at b/l bases Cardiovascular: NL Sounds; No Murmurs; No JVD, RRR Abdominal: NL Sounds; No Tenderness; No Distention Lymphatic: No Cervical Adenopathy Extremities: No Clubbing, Cyanosis, - - extensive edema b/l legs still present Skin: No Nodules or Sclerosis Neurological: Alert and Oriented x 3, NL Muscle Strength and Tone Result Diagrams: 08/24/17 06:09 08/25/17 05:48 Additional Lab and Data: Lab Results 08/23/17 08/23/17 08/23/17 Range/Units 12:00 12:00 12:00 WBC 9.0 (3.5-10.8) 10^3/ul RBC 3.61 L (4.0-5.4) 10^6/ul Hgb 10.0 L (14.0-18.0) g/dl Hct 30 L (42-52) % MCV 84 (80-94) fL MCH 28 (27-31) pg MCHC 33 (31-36) g/dl RDW 15 (10.5-15) % Plt Count 242 (150-450) 10^3/ul MPV 8 (7.4-10.4) um3 Neut % (Auto) 69.0 (38-83) % Lymph % (Auto) 16.4 L (25-47) % [place] % (Auto) 10.1 H (1-9) % Eos % (Auto) 3.1 (0-6) % Baso % (Auto) 1.4 (0-2) % Absolute Neuts (auto) 6.2 (1.5-7.7) 10^3/ul Absolute Lymphs (auto) 1.5 (1.0-4.8) 10^3/ul Absolute Monos (auto) 0.9 H (0-0.8) 10^3/ul Absolute Eos (auto) 0.3 (0-0.6) 10^3/ul Absolute Basos (auto) 0.1 (0-0.2) 10^3/ul Absolute Nucleated RBC 0 10^3/ul Nucleated RBC % 0 APTT (26.0-36.3) seconds D-Dimer, Quantitative (Less Than 230) ng/mL ABG pH (7.35-7.45) ABG pCO2 (35-45) mmHg ABG pO2 (80-100) mmHg ABG HCO3 (19-31) mmol/L ABG O2 Saturation (95-98) % ABG Base Excess (-2.0-2.0) Sodium 133 (133-145) mmol/L Potassium 4.7 (3.5-5.0) mmol/L Chloride 105 (101-111) mmol/L Carbon Dioxide 22 (22-32) mmol/L Anion Gap 6 (2-11) mmol/L BUN 31 H (6-24) mg/dL Creatinine 2.09 H (0.67-1.17) mg/dL Est GFR ( Amer) 41.9 (>60) Est GFR (Non-Af Amer) 32.6 (>60) BUN/Creatinine Ratio 14.8 (8-20) Glucose 118 H (70-100) mg/dL Lactic Acid 1.6 (0.5-2.0) mmol/L Calcium 8.6 (8.6-10.3) mg/dL Total Bilirubin 0.30 (0.2-1.0) mg/dL AST 10 L (13-39) U/L ALT 10 (7-52) U/L Alkaline Phosphatase 44 (34-104) U/L Total Creatine Kinase 84 (10-223) U/L CK-MB (CK-2) 4.6 (0.6-6.3) ng/mL Troponin I 0.00 (<0.04) ng/mL C-Reactive Protein 13.32 H (< 5.00) mg/L B-Natriuretic Peptide ( - 100) pg/mL Total Protein 6.6 (6.4-8.9) g/dL Albumin 3.3 (3.2-5.2) g/dL Globulin 3.3 (2-4) g/dL Albumin/Globulin Ratio 1.0 (1-3) Urine Color Urine Appearance Urine pH (5-9) Ur Specific [place] (1.010-1.030) Urine Protein (Negative) Urine Ketones (Negative) Urine Blood (Negative) Urine Nitrate (Negative) Urine Bilirubin (Negative) Urine Urobilinogen (Negative) Ur Leukocyte Esterase (Negative) Urine WBC (Auto) (Absent) Urine RBC (Auto) (Absent) Urine Bacteria (Absent) Urine Glucose (Negative) Influenza A (Rapid) (Negative) Influenza B (Rapid) (Negative) 08/23/17 08/23/17 08/23/17 Range/Units 12:00 12:00 12:18 WBC (3.5-10.8) 10^3/ul RBC (4.0-5.4) 10^6/ul Hgb (14.0-18.0) g/dl Hct (42-52) % MCV (80-94) fL MCH (27-31) pg MCHC (31-36) g/dl RDW (10.5-15) % Plt Count (150-450) 10^3/ul MPV (7.4-10.4) um3 Neut % (Auto) (38-83) % Lymph % (Auto) (25-47) % [place] % (Auto) (1-9) % Eos % (Auto) (0-6) % Baso % (Auto) (0-2) % Absolute Neuts (auto) (1.5-7.7) 10^3/ul Absolute Lymphs (auto) (1.0-4.8) 10^3/ul Absolute Monos (auto) (0-0.8) 10^3/ul Absolute Eos (auto) (0-0.6) 10^3/ul Absolute Basos (auto) (0-0.2) 10^3/ul Absolute Nucleated RBC 10^3/ul Nucleated RBC % APTT 30.9 (26.0-36.3) seconds D-Dimer, Quantitative 370 H (Less Than 230) ng/mL ABG pH (7.35-7.45) ABG pCO2 (35-45) mmHg ABG pO2 (80-100) mmHg ABG HCO3 (19-31) mmol/L ABG O2 Saturation (95-98) % ABG Base Excess (-2.0-2.0) Sodium (133-145) mmol/L Potassium (3.5-5.0) mmol/L Chloride (101-111) mmol/L Carbon Dioxide (22-32) mmol/L Anion Gap (2-11) mmol/L BUN (6-24) mg/dL Creatinine (0.67-1.17) mg/dL Est GFR ( Amer) (>60) Est GFR (Non-Af Amer) (>60) BUN/Creatinine Ratio (8-20) Glucose (70-100) mg/dL Lactic Acid (0.5-2.0) mmol/L Calcium (8.6-10.3) mg/dL Total Bilirubin (0.2-1.0) mg/dL AST (13-39) U/L ALT (7-52) U/L Alkaline Phosphatase (34-104) U/L Total Creatine Kinase (10-223) U/L CK-MB (CK-2) (0.6-6.3) ng/mL Troponin I (<0.04) ng/mL C-Reactive Protein (< 5.00) mg/L B-Natriuretic Peptide 390 H ( - 100) pg/mL Total Protein (6.4-8.9) g/dL Albumin (3.2-5.2) g/dL Globulin (2-4) g/dL Albumin/Globulin Ratio (1-3) Urine Color Urine Appearance Urine pH (5-9) Ur Specific [place] (1.010-1.030) Urine Protein (Negative) Urine Ketones (Negative) Urine Blood (Negative) Urine Nitrate (Negative) Urine Bilirubin (Negative) Urine Urobilinogen (Negative) Ur Leukocyte Esterase (Negative) Urine WBC (Auto) (Absent) Urine RBC (Auto) (Absent) Urine Bacteria (Absent) Urine Glucose (Negative) Influenza A (Rapid) Negative (Negative) Influenza B (Rapid) Negative (Negative) 08/23/17 08/23/17 Range/Units 12:30 14:25 WBC (3.5-10.8) 10^3/ul RBC (4.0-5.4) 10^6/ul Hgb (14.0-18.0) g/dl Hct (42-52) % MCV (80-94) fL MCH (27-31) pg MCHC (31-36) g/dl RDW (10.5-15) % Plt Count (150-450) 10^3/ul MPV (7.4-10.4) um3 Neut % (Auto) (38-83) % Lymph % (Auto) (25-47) % [place] % (Auto) (1-9) % Eos % (Auto) (0-6) % Baso % (Auto) (0-2) % Absolute Neuts (auto) (1.5-7.7) 10^3/ul Absolute Lymphs (auto) (1.0-4.8) 10^3/ul Absolute Monos (auto) (0-0.8) 10^3/ul Absolute Eos (auto) (0-0.6) 10^3/ul Absolute Basos (auto) (0-0.2) 10^3/ul Absolute Nucleated RBC 10^3/ul Nucleated RBC % APTT (26.0-36.3) seconds D-Dimer, Quantitative (Less Than 230) ng/mL ABG pH 7.38 (7.35-7.45) ABG pCO2 38 (35-45) mmHg ABG pO2 68 L (80-100) mmHg ABG HCO3 23.0 (19-31) mmol/L ABG O2 Saturation 97.4 (95-98) % ABG Base Excess -2.4 L (-2.0-2.0) Sodium (133-145) mmol/L Potassium (3.5-5.0) mmol/L Chloride (101-111) mmol/L Carbon Dioxide (22-32) mmol/L Anion Gap (2-11) mmol/L BUN (6-24) mg/dL Creatinine (0.67-1.17) mg/dL Est GFR ( Amer) (>60) Est GFR (Non-Af Amer) (>60) BUN/Creatinine Ratio (8-20) Glucose (70-100) mg/dL Lactic Acid (0.5-2.0) mmol/L Calcium (8.6-10.3) mg/dL Total Bilirubin (0.2-1.0) mg/dL AST (13-39) U/L ALT (7-52) U/L Alkaline Phosphatase (34-104) U/L Total Creatine Kinase (10-223) U/L CK-MB (CK-2) (0.6-6.3) ng/mL Troponin I (<0.04) ng/mL C-Reactive Protein (< 5.00) mg/L B-Natriuretic Peptide ( - 100) pg/mL Total Protein (6.4-8.9) g/dL Albumin (3.2-5.2) g/dL Globulin (2-4) g/dL Albumin/Globulin Ratio (1-3) Urine Color Yellow Urine Appearance Clear Urine pH 5.0 (5-9) Ur Specific [place] 1.012 (1.010-1.030) Urine Protein 3+(>=500 mg/dl) H (Negative) Urine Ketones Negative (Negative) Urine Blood 1+ H (Negative) Urine Nitrate Negative (Negative) Urine Bilirubin Negative (Negative) Urine Urobilinogen Negative (Negative) Ur Leukocyte Esterase Negative (Negative) Urine WBC (Auto) Trace(0-5/hpf) (Absent) Urine RBC (Auto) Trace(0-2/hpf) (Absent) Urine Bacteria Absent (Absent) Urine Glucose 1+(50 mg/dl) H (Negative) Influenza A (Rapid) (Negative) Influenza B (Rapid) (Negative) Assess/Plan/Problems-Billing Assessment: 61 yo M with h/o HTN, CKD stage 3, DM presents with anasarca - Patient Problems (1) Anasarca associated with disorder of kidney Comment: suspect due to proteinuria 24 U collection for protein is pending cont Lasix slowly improving appreciate Dr. Will's consult. echo shows EF 65% and no major valvular abnormalities (2) HTN (hypertension) Comment: SBP now 140-150s. cont metoprolol , amlodipine. Patient has a severe allergy to lisinopril in the past. restarting Imdur (3) Diabetes Comment: holding metformin due to creatinine>1.5. cont ISS (4) CKD stage 3 due to type 2 diabetes mellitus Comment: creat with mild worsening during diuresis (5) DVT prophylaxis Comment: - SQ heparin. Status and Disposition: inpatient
--- NOTE | 2017-08-25 20:08 | CONS ---
CC: Daiana Bautista NP, [facility] * NEPHROLOGY CONSULTATION: DATE OF CONSULT: 08/25/17 HISTORY OF PRESENT ILLNESS: Mr. Carrillo is a 61-year-old gentleman who has approximately a 5-year known history of diabetes mellitus, but thinks he probably had diabetes for about 10 years prior to that. His course has been complicated by the development of neuropathy approximately 3 to 4 years ago. He has not had been told that he has retinopathy. There is also the possibility there is diabetic gastroparesis and that he has early satiety and delayed gastric emptying. He presented on this occasion because of worsening edema and shortness of breath. He tells me that his medications have been changed around a great deal recently. He was recently started on levothyroxine for hypothyroidism. He had a diuretic added to his regimen because of worsening of swelling, but his swelling got worse even in the phase of the diuretic. There has been an attempt to diurese him here in the hospital and with this, it has been noted that his creatinine has been rising precipitating this consultation. He is a little less swollen now than he was on presentation , but he stills thinks he has a great deal of swelling. He does not have a history of orthopnea nor paroxysmal nocturnal dyspnea, but he does have occasional episodes of left parasternal dull chest pain. He tells me recently he was started on a medication for the chest pain. From his drug list, my guess is that it is the Imdur. He has a history of hypertension. He is unsure how long duration that has been. He has a history of anxiety. He has had gout in the past. He carries a history of stage 3 chronic kidney disease. PAST SURGICAL HISTORY: Previous surgical history is significant for surgery on his knees. He has had an appendectomy. MEDICATIONS: His medications at the time of admission included: 1. The previously mentioned unknown diuretic. 2. Metoprolol 125 mg daily. 3. Levothyroxine 25 mcg daily. 4. Imdur 30 mg daily. 5. Vitamin D 3000 units daily. 6. Aspirin 81 mg daily. 7. Metformin 1000 mg daily. 8. Hydroxyzine 25 mg 3 times a day. 9. Amlodipine 10 mg daily. ALLERGIES: He is allergic to LISINOPRIL, he does not know the nature of that allergy and to NIACIN, which produced a rash. FAMILY HISTORY: Significant that his father had coronary artery disease. SOCIAL HISTORY: He is disabled with pain to his hips and his legs, which he states is related to an episode of Lyme disease. He does not use tobacco, alcohol, or recreational drugs. He has had a history of taking ibuprofen in the past for aches and pains, but he has not had any for a few months. REVIEW OF SYSTEMS: Interestingly enough, he was noted to have both paroxysmal nocturnal dyspnea and orthopnea on history and physical; however, he denied these to me. He claims to have had a 20-pound weight gain recently, but he tells me he does not weigh himself. He does have a history of dyspnea on exertion. No visual defects. No swallowing problems. No nausea or vomiting. No changes in his bowel habits. PHYSICAL EXAMINATION: He is an obese, edematous white gentleman, who appears to be comfortable, but sitting at 90 degrees. His blood pressure is 155/72 with a pulse of 63, respiratory rate of 18, he is afebrile. HEENT: He is normocephalic. He is anicteric. His extraocular muscles are intact. Mucous membranes are moist. The chest revealed diffuse rales and he had some rhonchi to the mid lung sanchez laterally on both sides. Heart revealed a regular rhythm. I was unable to hear any murmurs. The abdomen is protuberant, distended. Bowel sounds are positive. He is nontender. Bones, Joints, Extremities: He has got 2+ edema well up above his knees. He has got trophic changes to his lower extremities starting at about the level of his ankles. Neuro: He moves all 4 extremities well. He seems alert and oriented. LABORATORY DATA: Review of his laboratory studies reveals a white count of 7.8 , hemoglobin of 9.9. He had a hemoglobin of 11.2 on 08/12/17. He has got normochromic, normocytic indices. Platelet count of 239,000. At the time of admission, his pH was 7.38, pCO2 38, pO2 68. Sodium 136, potassium 4.4, total CO2 20, chloride 105, BUN 29, creatinine 2.9. At the time of admission, his creatinine was 2.09. He has had a creatinine in the mid 2s in June. His creatinine in December 2016 was approximately 1.5. He did have an episode of worsening renal function at that time with an episode of cellulitis at that time ; however, that recovered. Glucose 77. Uric acid 9.2. Calcium 8.3 with an albumin of 3.3. TSH was 4.52 on 08/12/17. Urinalysis revealed 3+ glucose, 3+ protein, 1+ blood with trace rbc's and trace wbc's. 24-hour urine protein revealed 5360 mg. IMPRESSION: 1. Diabetes mellitus type 2. 2. Chronic renal disease stage 3. 3. Nephrotic syndrome. 4. Hypothyroidism. 5. Hypertension. 6. Diabetic neuropathy. 7. Diabetic gastroparesis. Likely, his renal function was actually worse then would have been predicted on the basis of dilution and probably as he is being diuresed, that level of renal insufficiency is being unmasked. We do have ways to go and my guess is perhaps 15 pounds of fluid to be diuresed. I would like to leave him with trace edema in order to avoid orthostatic hypotension. At some point, we should see a phosphorus. It would be appropriate this stage to see a 1,25-dihydroxyvitamin D level. It certainly would be nice to get him on angiotensin receptor lona since he has an allergy to lisinopril; however, I would be very cautious of this at this stage of his renal insufficiency. Some nephro protection can be gotten from the nondihydropyridine calcium channel blockers like diltiazem or verapamil and perhaps conversion from amlodipine would be reasonable. We should see an erythropoietin level to help evaluate his normochromic normocytic anemia. I have discussed the case with Dr. Steel. [id number]/[facility] #: [id number] MAG
[2017-08-25] MEDS: hydrOXYzine HCL TAB* 25 MG PO PRN (23:59)
[2017-08-26] MEDS: Albuterol/Ipratropium NEB.SOL* Albuterol 2.5 MG/Ipratropium 0.5 MG 3 ML INH SCH ×2 (01:06→08:28)
[2017-08-26] MEDS: Heparin VIAL(*) 5000 UNITS/ML VIAL (FIVE THOUSAND) SUBCUT SCH ×3 (05:58→20:18)
[2017-08-26] MEDS: Levothyroxine TAB* 25 MCG TAB PO SCH (05:58)
[2017-08-26 06:18] LABS: EGFR Non-African American 28.2 (>60)
[2017-08-26] MEDS: Insulin LISPRO* 1 UNITS UNIT SUBCUT SCH ×4 (07:57→22:43)
[2017-08-26] MEDS: amLODIPine TAB* 5 MG PO SCH (08:41)
[2017-08-26] MEDS: Metoprolol Succinate XL TAB* 50 MG PO SCH (08:41)
[2017-08-26] MEDS: Cholecalciferol TAB* 1000 UNITS PO SCH (08:41)
[2017-08-26] MEDS: Furosemide IV* 10 MG/ML 10 ML VIAL (100 MG) IV SCH ×2 (08:41→18:06)
[2017-08-26] MEDS: Aspirin EC Low Dose* 81 MG TAB.EC PO SCH (08:41)
[2017-08-26] MEDS: Isosorbide Mononitrate ER TAB* 30 MG PO SCH (08:41)
[2017-08-26] MEDS: Acetaminophen TAB* 325 MG PO PRN (10:28)
--- NOTE | 2017-08-26 15:59 | PN ---
Subjective Date of Service: 08/26/17 Interval History: Pt feels better, breathing is easier. wt loss and diuresis stalled-lost only 1 lbs in 24H Objective Active Medications: Acetaminophen (Tylenol Tab*) 650 mg PO Q4H PRN PRN Reason: FEVER/PAIN Last Admin: 08/26/17 10:28 Dose: 650 mg Albuterol (Ventolin 2.5 Mg/3 Ml Neb.Janessa*) 2.5 mg INH RT.[id number] AWAKE PRN PRN Reason: sob/wheezing Last Admin: 08/24/17 15:38 Dose: 2.5 mg Amlodipine Besylate (Norvasc Tab*) 10 mg PO DAILY [facility] Last Admin: 08/26/17 08:41 Dose: 10 mg Aspirin (Aspirin Ec Low Dose*) 81 mg PO DAILY [facility] Last Admin: 08/26/17 08:41 Dose: 81 mg Cholecalciferol (Vitamin D Tab*) 3,000 units PO DAILY [facility] Last Admin: 08/26/17 08:41 Dose: 3,000 units Dextrose (D50w Syringe 50 Ml*) 12.5 gm IV PUSH .FOR FS < 60 - SS PRN PRN Reason: FS < 60 Furosemide (Lasix Iv*) 60 mg IV 0800,1700 [facility] Heparin Sodium (Porcine) (Heparin Vial(*)) 5,000 units SUBCUT Q8HR [facility] Last Admin: 08/26/17 14:39 Dose: 5,000 units Hydroxyzine HCl (Atarax Tab*) 25 mg PO TID PRN PRN Reason: ANXIETY Last Admin: 08/25/17 23:59 Dose: 25 mg Insulin Human Lispro (Humalog*) 0 units SUBCUT ACHS [facility] PRN Reason: Protocol Last Admin: 08/26/17 11:54 Dose: Not Given Isosorbide Mononitrate (Imdur Er Tab*) 30 mg PO DAILY [facility] Last Admin: 08/26/17 08:41 Dose: 30 mg Levothyroxine Sodium (Synthroid Tab*) 25 mcg PO DAILY@0600 [facility] Last Admin: 08/26/17 05:58 Dose: 25 mcg Metoprolol Succinate (Toprol Xl Tab*) 125 mg PO DAILY [facility] Last Admin: 08/26/17 08:41 Dose: 125 mg Vital Signs - 8 hr 08/26/17 08/26/17 08:30 08:55 Pulse Rate 66 64 Respiratory 14 15 Rate O2 Sat by Pulse 95 95 Oximetry Oxygen Devices in Use Now: None Appearance: 61 yo M in nAD, aAOx3 Eyes: No Scleral Icterus, PERRLA Ears/Nose/Mouth/Throat: NL Teeth, Lips, Gums, Mucous Membranes Moist Neck: NL Appearance and Movements; NL JVP, Trachea Midline Respiratory: Symmetrical Chest Expansion and Respiratory Effort, Clear to Auscultation Cardiovascular: NL Sounds; No Murmurs; No JVD, RRR Abdominal: NL Sounds; No Tenderness; No Distention, No Hepatosplenomegaly Lymphatic: No Cervical Adenopathy Extremities: No Clubbing, Cyanosis, - - leg edema unchanged Skin: No Nodules or Sclerosis Neurological: Alert and Oriented x 3, NL Muscle Strength and Tone Result Diagrams: 08/24/17 06:09 08/26/17 05:28 Additional Lab and Data: Lab Results 08/23/17 08/23/17 08/23/17 Range/Units 12:00 12:00 12:00 WBC 9.0 (3.5-10.8) 10^3/ul RBC 3.61 L (4.0-5.4) 10^6/ul Hgb 10.0 L (14.0-18.0) g/dl Hct 30 L (42-52) % MCV 84 (80-94) fL MCH 28 (27-31) pg MCHC 33 (31-36) g/dl RDW 15 (10.5-15) % Plt Count 242 (150-450) 10^3/ul MPV 8 (7.4-10.4) um3 Neut % (Auto) 69.0 (38-83) % Lymph % (Auto) 16.4 L (25-47) % Alcorn % (Auto) 10.1 H (1-9) % Eos % (Auto) 3.1 (0-6) % Baso % (Auto) 1.4 (0-2) % Absolute Neuts (auto) 6.2 (1.5-7.7) 10^3/ul Absolute Lymphs (auto) 1.5 (1.0-4.8) 10^3/ul Absolute Monos (auto) 0.9 H (0-0.8) 10^3/ul Absolute Eos (auto) 0.3 (0-0.6) 10^3/ul Absolute Basos (auto) 0.1 (0-0.2) 10^3/ul Absolute Nucleated RBC 0 10^3/ul Nucleated RBC % 0 APTT (26.0-36.3) seconds D-Dimer, Quantitative (Less Than 230) ng/mL ABG pH (7.35-7.45) ABG pCO2 (35-45) mmHg ABG pO2 (80-100) mmHg ABG HCO3 (19-31) mmol/L ABG O2 Saturation (95-98) % ABG Base Excess (-2.0-2.0) Sodium 133 (133-145) mmol/L Potassium 4.7 (3.5-5.0) mmol/L Chloride 105 (101-111) mmol/L Carbon Dioxide 22 (22-32) mmol/L Anion Gap 6 (2-11) mmol/L BUN 31 H (6-24) mg/dL Creatinine 2.09 H (0.67-1.17) mg/dL Est GFR ( Amer) 41.9 (>60) Est GFR (Non-Af Amer) 32.6 (>60) BUN/Creatinine Ratio 14.8 (8-20) Glucose 118 H (70-100) mg/dL Lactic Acid 1.6 (0.5-2.0) mmol/L Calcium 8.6 (8.6-10.3) mg/dL Total Bilirubin 0.30 (0.2-1.0) mg/dL AST 10 L (13-39) U/L ALT 10 (7-52) U/L Alkaline Phosphatase 44 (34-104) U/L Total Creatine Kinase 84 (10-223) U/L CK-MB (CK-2) 4.6 (0.6-6.3) ng/mL Troponin I 0.00 (<0.04) ng/mL C-Reactive Protein 13.32 H (< 5.00) mg/L B-Natriuretic Peptide ( - 100) pg/mL Total Protein 6.6 (6.4-8.9) g/dL Albumin 3.3 (3.2-5.2) g/dL Globulin 3.3 (2-4) g/dL Albumin/Globulin Ratio 1.0 (1-3) Urine Color Urine Appearance Urine pH (5-9) Ur Specific [place] (1.010-1.030) Urine Protein (Negative) Urine Ketones (Negative) Urine Blood (Negative) Urine Nitrate (Negative) Urine Bilirubin (Negative) Urine Urobilinogen (Negative) Ur Leukocyte Esterase (Negative) Urine WBC (Auto) (Absent) Urine RBC (Auto) (Absent) Urine Bacteria (Absent) Urine Glucose (Negative) Influenza A (Rapid) (Negative) Influenza B (Rapid) (Negative) 08/23/17 08/23/17 08/23/17 Range/Units 12:00 12:00 12:18 WBC (3.5-10.8) 10^3/ul RBC (4.0-5.4) 10^6/ul Hgb (14.0-18.0) g/dl Hct (42-52) % MCV (80-94) fL MCH (27-31) pg MCHC (31-36) g/dl RDW (10.5-15) % Plt Count (150-450) 10^3/ul MPV (7.4-10.4) um3 Neut % (Auto) (38-83) % Lymph % (Auto) (25-47) % Alcorn % (Auto) (1-9) % Eos % (Auto) (0-6) % Baso % (Auto) (0-2) % Absolute Neuts (auto) (1.5-7.7) 10^3/ul Absolute Lymphs (auto) (1.0-4.8) 10^3/ul Absolute Monos (auto) (0-0.8) 10^3/ul Absolute Eos (auto) (0-0.6) 10^3/ul Absolute Basos (auto) (0-0.2) 10^3/ul Absolute Nucleated RBC 10^3/ul Nucleated RBC % APTT 30.9 (26.0-36.3) seconds D-Dimer, Quantitative 370 H (Less Than 230) ng/mL ABG pH (7.35-7.45) ABG pCO2 (35-45) mmHg ABG pO2 (80-100) mmHg ABG HCO3 (19-31) mmol/L ABG O2 Saturation (95-98) % ABG Base Excess (-2.0-2.0) Sodium (133-145) mmol/L Potassium (3.5-5.0) mmol/L Chloride (101-111) mmol/L Carbon Dioxide (22-32) mmol/L Anion Gap (2-11) mmol/L BUN (6-24) mg/dL Creatinine (0.67-1.17) mg/dL Est GFR ( Amer) (>60) Est GFR (Non-Af Amer) (>60) BUN/Creatinine Ratio (8-20) Glucose (70-100) mg/dL Lactic Acid (0.5-2.0) mmol/L Calcium (8.6-10.3) mg/dL Total Bilirubin (0.2-1.0) mg/dL AST (13-39) U/L ALT (7-52) U/L Alkaline Phosphatase (34-104) U/L Total Creatine Kinase (10-223) U/L CK-MB (CK-2) (0.6-6.3) ng/mL Troponin I (<0.04) ng/mL C-Reactive Protein (< 5.00) mg/L B-Natriuretic Peptide 390 H ( - 100) pg/mL Total Protein (6.4-8.9) g/dL Albumin (3.2-5.2) g/dL Globulin (2-4) g/dL Albumin/Globulin Ratio (1-3) Urine Color Urine Appearance Urine pH (5-9) Ur Specific [place] (1.010-1.030) Urine Protein (Negative) Urine Ketones (Negative) Urine Blood (Negative) Urine Nitrate (Negative) Urine Bilirubin (Negative) Urine Urobilinogen (Negative) Ur Leukocyte Esterase (Negative) Urine WBC (Auto) (Absent) Urine RBC (Auto) (Absent) Urine Bacteria (Absent) Urine Glucose (Negative) Influenza A (Rapid) Negative (Negative) Influenza B (Rapid) Negative (Negative) 08/23/17 08/23/17 Range/Units 12:30 14:25 WBC (3.5-10.8) 10^3/ul RBC (4.0-5.4) 10^6/ul Hgb (14.0-18.0) g/dl Hct (42-52) % MCV (80-94) fL MCH (27-31) pg MCHC (31-36) g/dl RDW (10.5-15) % Plt Count (150-450) 10^3/ul MPV (7.4-10.4) um3 Neut % (Auto) (38-83) % Lymph % (Auto) (25-47) % Alcorn % (Auto) (1-9) % Eos % (Auto) (0-6) % Baso % (Auto) (0-2) % Absolute Neuts (auto) (1.5-7.7) 10^3/ul Absolute Lymphs (auto) (1.0-4.8) 10^3/ul Absolute Monos (auto) (0-0.8) 10^3/ul Absolute Eos (auto) (0-0.6) 10^3/ul Absolute Basos (auto) (0-0.2) 10^3/ul Absolute Nucleated RBC 10^3/ul Nucleated RBC % APTT (26.0-36.3) seconds D-Dimer, Quantitative (Less Than 230) ng/mL ABG pH 7.38 (7.35-7.45) ABG pCO2 38 (35-45) mmHg ABG pO2 68 L (80-100) mmHg ABG HCO3 23.0 (19-31) mmol/L ABG O2 Saturation 97.4 (95-98) % ABG Base Excess -2.4 L (-2.0-2.0) Sodium (133-145) mmol/L Potassium (3.5-5.0) mmol/L Chloride (101-111) mmol/L Carbon Dioxide (22-32) mmol/L Anion Gap (2-11) mmol/L BUN (6-24) mg/dL Creatinine (0.67-1.17) mg/dL Est GFR ( Amer) (>60) Est GFR (Non-Af Amer) (>60) BUN/Creatinine Ratio (8-20) Glucose (70-100) mg/dL Lactic Acid (0.5-2.0) mmol/L Calcium (8.6-10.3) mg/dL Total Bilirubin (0.2-1.0) mg/dL AST (13-39) U/L ALT (7-52) U/L Alkaline Phosphatase (34-104) U/L Total Creatine Kinase (10-223) U/L CK-MB (CK-2) (0.6-6.3) ng/mL Troponin I (<0.04) ng/mL C-Reactive Protein (< 5.00) mg/L B-Natriuretic Peptide ( - 100) pg/mL Total Protein (6.4-8.9) g/dL Albumin (3.2-5.2) g/dL Globulin (2-4) g/dL Albumin/Globulin Ratio (1-3) Urine Color Yellow Urine Appearance Clear Urine pH 5.0 (5-9) Ur Specific [place] 1.012 (1.010-1.030) Urine Protein 3+(>=500 mg/dl) H (Negative) Urine Ketones Negative (Negative) Urine Blood 1+ H (Negative) Urine Nitrate Negative (Negative) Urine Bilirubin Negative (Negative) Urine Urobilinogen Negative (Negative) Ur Leukocyte Esterase Negative (Negative) Urine WBC (Auto) Trace(0-5/hpf) (Absent) Urine RBC (Auto) Trace(0-2/hpf) (Absent) Urine Bacteria Absent (Absent) Urine Glucose 1+(50 mg/dl) H (Negative) Influenza A (Rapid) (Negative) Influenza B (Rapid) (Negative) Assess/Plan/Problems-Billing Assessment: 61 yo M with h/o HTN, CKD stage 3, DM presents with anasarca - Patient Problems (1) Anasarca associated with disorder of kidney Comment: due to proteinuria/nephrotic syndrome-pt has over 5 grams of protine on his 24H urine collection will increase Lasix to 60 mg BID slowly improving appreciate Dr. Will's consult. echo shows EF 65% and no major valvular abnormalities (2) HTN (hypertension) Comment: SBP now 140-150s. cont metoprolol , amlodipine, Imdur. Patient has a severe allergy to lisinopril in the past. (3) Diabetes Comment: holding metformin due to creatinine>1.5. cont ISS (4) CKD stage 3 due to type 2 diabetes mellitus Comment: creat with mild worsening during diuresis (5) DVT prophylaxis Comment: - SQ heparin. Status and Disposition: inpatient
[2017-08-26] MEDS: hydrOXYzine HCL TAB* 25 MG PO PRN (23:05)
[2017-08-27] MEDS: Heparin VIAL(*) 5000 UNITS/ML VIAL (FIVE THOUSAND) SUBCUT SCH ×3 (05:26→21:32)
[2017-08-27] MEDS: Levothyroxine TAB* 25 MCG TAB PO SCH (05:26)
[2017-08-27] MEDS: Insulin LISPRO* 1 UNITS UNIT SUBCUT SCH ×4 (08:21→21:32)
[2017-08-27] MEDS: Furosemide IV* 10 MG/ML 10 ML VIAL (100 MG) IV SCH ×2 (09:00→18:05)
[2017-08-27] MEDS: Isosorbide Mononitrate ER TAB* 30 MG PO SCH (09:01)
[2017-08-27] MEDS: amLODIPine TAB* 5 MG PO SCH (09:01)
[2017-08-27] MEDS: Aspirin EC Low Dose* 81 MG TAB.EC PO SCH (09:01)
[2017-08-27] MEDS: Cholecalciferol TAB* 1000 UNITS PO SCH (09:01)
[2017-08-27] MEDS: Metoprolol Succinate XL TAB* 50 MG PO SCH (09:01)
[2017-08-27] MEDS: Losartan TAB* 25 MG PO SCH (11:37)
[2017-08-27] MEDS ORDERED: Metolazone TAB* 5 MG PO ONE (16:30)
--- NOTE | 2017-08-27 16:37 | PN ---
Subjective Date of Service: 08/27/17 Interval History: has lost 16 lbs since admission. still LE's markedly edematous. still has to sleep with head elevated off bed Objective Active Medications: Acetaminophen (Tylenol Tab*) 650 mg PO Q4H PRN PRN Reason: FEVER/PAIN Last Admin: 08/26/17 10:28 Dose: 650 mg Albuterol (Ventolin 2.5 Mg/3 Ml Neb.Janessa*) 2.5 mg INH [id number] AWAKE PRN PRN Reason: sob/wheezing Last Admin: 08/24/17 15:38 Dose: 2.5 mg Amlodipine Besylate (Norvasc Tab*) 10 mg PO DAILY [facility] Last Admin: 08/27/17 09:01 Dose: 10 mg Aspirin (Aspirin Ec Low Dose*) 81 mg PO DAILY [facility] Last Admin: 08/27/17 09:01 Dose: 81 mg Cholecalciferol (Vitamin D Tab*) 3,000 units PO DAILY [facility] Last Admin: 08/27/17 09:01 Dose: 3,000 units Dextrose (D50w Syringe 50 Ml*) 12.5 gm IV PUSH .FOR FS < 60 - SS PRN PRN Reason: FS < 60 Furosemide (Lasix Iv*) 60 mg IV 0800,1700 [facility] Last Admin: 08/27/17 09:00 Dose: 60 mg Heparin Sodium (Porcine) (Heparin Vial(*)) 5,000 units SUBCUT Q8HR [facility] Last Admin: 08/27/17 14:05 Dose: 5,000 units Hydroxyzine HCl (Atarax Tab*) 25 mg PO TID PRN PRN Reason: ANXIETY Last Admin: 08/26/17 23:05 Dose: 25 mg Insulin Human Lispro (Humalog*) 0 units SUBCUT ACHS [facility] PRN Reason: Protocol Last Admin: 08/27/17 11:43 Dose: Not Given Isosorbide Mononitrate (Imdur Er Tab*) 30 mg PO DAILY [facility] Last Admin: 08/27/17 09:01 Dose: 30 mg Levothyroxine Sodium (Synthroid Tab*) 25 mcg PO DAILY@0600 [facility] Last Admin: 08/27/17 05:26 Dose: 25 mcg Losartan Potassium (Cozaar Tab*) 25 mg PO DAILY [facility] Last Admin: 08/27/17 11:37 Dose: 25 mg Metoprolol Succinate (Toprol Xl Tab*) 125 mg PO DAILY [facility] Last Admin: 08/27/17 09:01 Dose: 125 mg Vital Signs - 8 hr 08/27/17 08/27/17 09:14 11:29 Temperature 98.3 F Pulse Rate 57 Respiratory 18 16 Rate Blood Pressure 141/61 (mmHg) O2 Sat by Pulse 96 Oximetry Oxygen Devices in Use Now: None Appearance: 61 yo M in nAD, aAOx3 Eyes: No Scleral Icterus, PERRLA Ears/Nose/Mouth/Throat: NL Teeth, Lips, Gums, Mucous Membranes Moist Neck: NL Appearance and Movements; NL JVP, Trachea Midline Respiratory: Symmetrical Chest Expansion and Respiratory Effort, Clear to Auscultation Cardiovascular: NL Sounds; No Murmurs; No JVD, RRR Abdominal: NL Sounds; No Tenderness; No Distention Lymphatic: No Cervical Adenopathy Extremities: No Clubbing, Cyanosis, - - +2 pitting edema entire b/l LE's Skin: No Rash or Ulcers, No Nodules or Sclerosis Neurological: Alert and Oriented x 3, NL Muscle Strength and Tone Result Diagrams: 08/24/17 06:09 08/26/17 05:28 Additional Lab and Data: Lab Results 08/23/17 08/23/17 08/23/17 Range/Units 12:00 12:00 12:00 WBC 9.0 (3.5-10.8) 10^3/ul RBC 3.61 L (4.0-5.4) 10^6/ul Hgb 10.0 L (14.0-18.0) g/dl Hct 30 L (42-52) % MCV 84 (80-94) fL MCH 28 (27-31) pg MCHC 33 (31-36) g/dl RDW 15 (10.5-15) % Plt Count 242 (150-450) 10^3/ul MPV 8 (7.4-10.4) um3 Neut % (Auto) 69.0 (38-83) % Lymph % (Auto) 16.4 L (25-47) % [place] % (Auto) 10.1 H (1-9) % Eos % (Auto) 3.1 (0-6) % Baso % (Auto) 1.4 (0-2) % Absolute Neuts (auto) 6.2 (1.5-7.7) 10^3/ul Absolute Lymphs (auto) 1.5 (1.0-4.8) 10^3/ul Absolute Monos (auto) 0.9 H (0-0.8) 10^3/ul Absolute Eos (auto) 0.3 (0-0.6) 10^3/ul Absolute Basos (auto) 0.1 (0-0.2) 10^3/ul Absolute Nucleated RBC 0 10^3/ul Nucleated RBC % 0 APTT (26.0-36.3) seconds D-Dimer, Quantitative (Less Than 230) ng/mL ABG pH (7.35-7.45) ABG pCO2 (35-45) mmHg ABG pO2 (80-100) mmHg ABG HCO3 (19-31) mmol/L ABG O2 Saturation (95-98) % ABG Base Excess (-2.0-2.0) Sodium 133 (133-145) mmol/L Potassium 4.7 (3.5-5.0) mmol/L Chloride 105 (101-111) mmol/L Carbon Dioxide 22 (22-32) mmol/L Anion Gap 6 (2-11) mmol/L BUN 31 H (6-24) mg/dL Creatinine 2.09 H (0.67-1.17) mg/dL Est GFR ( Amer) 41.9 (>60) Est GFR (Non-Af Amer) 32.6 (>60) BUN/Creatinine Ratio 14.8 (8-20) Glucose 118 H (70-100) mg/dL Lactic Acid 1.6 (0.5-2.0) mmol/L Calcium 8.6 (8.6-10.3) mg/dL Total Bilirubin 0.30 (0.2-1.0) mg/dL AST 10 L (13-39) U/L ALT 10 (7-52) U/L Alkaline Phosphatase 44 (34-104) U/L Total Creatine Kinase 84 (10-223) U/L CK-MB (CK-2) 4.6 (0.6-6.3) ng/mL Troponin I 0.00 (<0.04) ng/mL C-Reactive Protein 13.32 H (< 5.00) mg/L B-Natriuretic Peptide ( - 100) pg/mL Total Protein 6.6 (6.4-8.9) g/dL Albumin 3.3 (3.2-5.2) g/dL Globulin 3.3 (2-4) g/dL Albumin/Globulin Ratio 1.0 (1-3) Urine Color Urine Appearance Urine pH (5-9) Ur Specific [place] (1.010-1.030) Urine Protein (Negative) Urine Ketones (Negative) Urine Blood (Negative) Urine Nitrate (Negative) Urine Bilirubin (Negative) Urine Urobilinogen (Negative) Ur Leukocyte Esterase (Negative) Urine WBC (Auto) (Absent) Urine RBC (Auto) (Absent) Urine Bacteria (Absent) Urine Glucose (Negative) Influenza A (Rapid) (Negative) Influenza B (Rapid) (Negative) 08/23/17 08/23/17 08/23/17 Range/Units 12:00 12:00 12:18 WBC (3.5-10.8) 10^3/ul RBC (4.0-5.4) 10^6/ul Hgb (14.0-18.0) g/dl Hct (42-52) % MCV (80-94) fL MCH (27-31) pg MCHC (31-36) g/dl RDW (10.5-15) % Plt Count (150-450) 10^3/ul MPV (7.4-10.4) um3 Neut % (Auto) (38-83) % Lymph % (Auto) (25-47) % [place] % (Auto) (1-9) % Eos % (Auto) (0-6) % Baso % (Auto) (0-2) % Absolute Neuts (auto) (1.5-7.7) 10^3/ul Absolute Lymphs (auto) (1.0-4.8) 10^3/ul Absolute Monos (auto) (0-0.8) 10^3/ul Absolute Eos (auto) (0-0.6) 10^3/ul Absolute Basos (auto) (0-0.2) 10^3/ul Absolute Nucleated RBC 10^3/ul Nucleated RBC % APTT 30.9 (26.0-36.3) seconds D-Dimer, Quantitative 370 H (Less Than 230) ng/mL ABG pH (7.35-7.45) ABG pCO2 (35-45) mmHg ABG pO2 (80-100) mmHg ABG HCO3 (19-31) mmol/L ABG O2 Saturation (95-98) % ABG Base Excess (-2.0-2.0) Sodium (133-145) mmol/L Potassium (3.5-5.0) mmol/L Chloride (101-111) mmol/L Carbon Dioxide (22-32) mmol/L Anion Gap (2-11) mmol/L BUN (6-24) mg/dL Creatinine (0.67-1.17) mg/dL Est GFR ( Amer) (>60) Est GFR (Non-Af Amer) (>60) BUN/Creatinine Ratio (8-20) Glucose (70-100) mg/dL Lactic Acid (0.5-2.0) mmol/L Calcium (8.6-10.3) mg/dL Total Bilirubin (0.2-1.0) mg/dL AST (13-39) U/L ALT (7-52) U/L Alkaline Phosphatase (34-104) U/L Total Creatine Kinase (10-223) U/L CK-MB (CK-2) (0.6-6.3) ng/mL Troponin I (<0.04) ng/mL C-Reactive Protein (< 5.00) mg/L B-Natriuretic Peptide 390 H ( - 100) pg/mL Total Protein (6.4-8.9) g/dL Albumin (3.2-5.2) g/dL Globulin (2-4) g/dL Albumin/Globulin Ratio (1-3) Urine Color Urine Appearance Urine pH (5-9) Ur Specific [place] (1.010-1.030) Urine Protein (Negative) Urine Ketones (Negative) Urine Blood (Negative) Urine Nitrate (Negative) Urine Bilirubin (Negative) Urine Urobilinogen (Negative) Ur Leukocyte Esterase (Negative) Urine WBC (Auto) (Absent) Urine RBC (Auto) (Absent) Urine Bacteria (Absent) Urine Glucose (Negative) Influenza A (Rapid) Negative (Negative) Influenza B (Rapid) Negative (Negative) 08/23/17 08/23/17 Range/Units 12:30 14:25 WBC (3.5-10.8) 10^3/ul RBC (4.0-5.4) 10^6/ul Hgb (14.0-18.0) g/dl Hct (42-52) % MCV (80-94) fL MCH (27-31) pg MCHC (31-36) g/dl RDW (10.5-15) % Plt Count (150-450) 10^3/ul MPV (7.4-10.4) um3 Neut % (Auto) (38-83) % Lymph % (Auto) (25-47) % [place] % (Auto) (1-9) % Eos % (Auto) (0-6) % Baso % (Auto) (0-2) % Absolute Neuts (auto) (1.5-7.7) 10^3/ul Absolute Lymphs (auto) (1.0-4.8) 10^3/ul Absolute Monos (auto) (0-0.8) 10^3/ul Absolute Eos (auto) (0-0.6) 10^3/ul Absolute Basos (auto) (0-0.2) 10^3/ul Absolute Nucleated RBC 10^3/ul Nucleated RBC % APTT (26.0-36.3) seconds D-Dimer, Quantitative (Less Than 230) ng/mL ABG pH 7.38 (7.35-7.45) ABG pCO2 38 (35-45) mmHg ABG pO2 68 L (80-100) mmHg ABG HCO3 23.0 (19-31) mmol/L ABG O2 Saturation 97.4 (95-98) % ABG Base Excess -2.4 L (-2.0-2.0) Sodium (133-145) mmol/L Potassium (3.5-5.0) mmol/L Chloride (101-111) mmol/L Carbon Dioxide (22-32) mmol/L Anion Gap (2-11) mmol/L BUN (6-24) mg/dL Creatinine (0.67-1.17) mg/dL Est GFR ( Amer) (>60) Est GFR (Non-Af Amer) (>60) BUN/Creatinine Ratio (8-20) Glucose (70-100) mg/dL Lactic Acid (0.5-2.0) mmol/L Calcium (8.6-10.3) mg/dL Total Bilirubin (0.2-1.0) mg/dL AST (13-39) U/L ALT (7-52) U/L Alkaline Phosphatase (34-104) U/L Total Creatine Kinase (10-223) U/L CK-MB (CK-2) (0.6-6.3) ng/mL Troponin I (<0.04) ng/mL C-Reactive Protein (< 5.00) mg/L B-Natriuretic Peptide ( - 100) pg/mL Total Protein (6.4-8.9) g/dL Albumin (3.2-5.2) g/dL Globulin (2-4) g/dL Albumin/Globulin Ratio (1-3) Urine Color Yellow Urine Appearance Clear Urine pH 5.0 (5-9) Ur Specific [place] 1.012 (1.010-1.030) Urine Protein 3+(>=500 mg/dl) H (Negative) Urine Ketones Negative (Negative) Urine Blood 1+ H (Negative) Urine Nitrate Negative (Negative) Urine Bilirubin Negative (Negative) Urine Urobilinogen Negative (Negative) Ur Leukocyte Esterase Negative (Negative) Urine WBC (Auto) Trace(0-5/hpf) (Absent) Urine RBC (Auto) Trace(0-2/hpf) (Absent) Urine Bacteria Absent (Absent) Urine Glucose 1+(50 mg/dl) H (Negative) Influenza A (Rapid) (Negative) Influenza B (Rapid) (Negative) Assess/Plan/Problems-Billing Assessment: 61 yo M with h/o HTN, CKD stage 3, DM presents with anasarca - Patient Problems (1) Anasarca associated with disorder of kidney Comment: due to proteinuria/nephrotic syndrome-pt has over 5 grams of protine on his 24H urine collection will increase Lasix to 60 mg BID and add Zaroxolyn today slowly improving appreciate Dr. Will's consult. echo shows EF 65% and no major valvular abnormalities (2) HTN (hypertension) Comment: SBP now 140-150s. Losartan started today cont metoprolol , amlodipine, Imdur. Patient has a severe allergy to lisinopril in the past. (3) Diabetes Comment: holding metformin due to creatinine>1.5. cont ISS (4) CKD stage 3 due to type 2 diabetes mellitus Comment: creat with mild worsening during diuresis (5) DVT prophylaxis Comment: - SQ heparin. Status and Disposition: inpatient
[2017-08-27] MEDS: hydrOXYzine HCL TAB* 25 MG PO PRN (21:40)
[2017-08-27] MEDS: Acetaminophen TAB* 325 MG PO PRN (21:40)
[2017-08-28] MEDS: Heparin VIAL(*) 5000 UNITS/ML VIAL (FIVE THOUSAND) SUBCUT SCH ×2 (05:15→13:36)
[2017-08-28] MEDS: Levothyroxine TAB* 25 MCG TAB PO SCH (05:15)
[2017-08-28 06:01] LABS: ABS Basophils 0.1 10^3/ul (0-0.2); ABS Eosinophils 0.2 10^3/ul (0-0.6); ABS Lymphocytes 1.5 10^3/ul (1.0-4.8); ABS Monocytes 1.1 10^3/ul (0-0.8); ABS Neutrophils 3.8 10^3/ul (1.5-7.7); ABS Nucleated RBC 0 10^3/ul; Eosinophil % 3.3 % (0-6); Hematocrit 29 % (42-52); Hemoglobin 9.7 g/dl (14.0-18.0); Lymphocyte % 22.5 % (25-47); Mean Corpuscular HGB Conc 33 g/dl (31-36); Mean Corpuscular Hemoglobin 27 pg (27-31); Mean Corpuscular Volume 82 fL (80-94); Mean Platelet Volume 8 um3 (7.4-10.4); Nucleated Red Blood Cells % 0; Platelet Count 246 10^3/ul (150-450); Red Blood Count 3.56 10^6/ul (4.0-5.4); Red Cell Distribution Width 14 % (10.5-15); White Blood Count 6.7 10^3/ul (3.5-10.8)
[2017-08-28 06:21] LABS: EGFR Non-African American 25.5 (>60)
[2017-08-28] MEDS: Insulin LISPRO* 1 UNITS UNIT SUBCUT SCH ×2 (07:47→12:16)
[2017-08-28] MEDS ORDERED: Metolazone TAB* 5 MG PO SCH (09:00)
[2017-08-28 09:35] VITALS: BP 154/82
[2017-08-28] MEDS: Acetaminophen TAB* 325 MG PO PRN (09:38)
[2017-08-28] MEDS: Metoprolol Succinate XL TAB* 50 MG PO SCH (09:40)
[2017-08-28] MEDS: Losartan TAB* 25 MG PO SCH (09:41)
[2017-08-28] MEDS: Cholecalciferol TAB* 1000 UNITS PO SCH (09:42)
[2017-08-28] MEDS: Aspirin EC Low Dose* 81 MG TAB.EC PO SCH (09:42)
[2017-08-28] MEDS: amLODIPine TAB* 5 MG PO SCH (09:43)
[2017-08-28] MEDS: Isosorbide Mononitrate ER TAB* 30 MG PO SCH (09:43)
[2017-08-28] MEDS: Furosemide IV* 10 MG/ML 10 ML VIAL (100 MG) IV SCH ×2 (10:27→10:34)
[2017-08-28] MEDS ORDERED: Furosemide IV* 10 MG/ML 10 ML VIAL (100 MG) IV SCH (18:00)
--- NOTE | 2017-08-29 11:21 | DS ---
ADDENDUM NOW INCLUDED ON THIS REPORT CC: Daiana Bautista NP; Dr. Will * DISCHARGE SUMMARY: DATE OF ADMISSION: 08/23/17 DATE OF DISCHARGE: 08/28/17 PRIMARY CARE PROVIDER: Daiana Bautista NP from [facility]. DISCHARGE DIAGNOSIS: Anasarca due to nephrotic syndrome secondary to chronic kidney disease. SECONDARY DIAGNOSES: 1. Hypertension. 2. Hyperlipidemia. 3. Diabetes. 4. Anxiety. 5. History of gout. 6. History of chronic kidney disease, stage 3. MEDICATIONS AT DISCHARGE: Include: 1. Lasix 40 mg twice a day. 2. Zaroxolyn 5 mg in the morning daily. 3. Metoprolol succinate 125 mg daily. 4. Cozaar 25 mg daily. 5. Synthroid 25 mcg daily. 6. Imdur 30 mg daily. 7. Atarax 25 mg t.i.d. p.r.n. anxiety. 8. Vitamin D3, 3000 units daily. 9. Aspirin 81 mg daily. 10. Norvasc 10 mg daily. LABORATORY DATA AND STUDIES PERFORMED DURING THE HOSPITAL STAY: Included: On , white blood cell count of 6.7, hemoglobin of 9.7, hematocrit of 29, MCA of 82, and platelets of 246. Sodium was 134, potassium 3.7, chloride 100, carbon dioxide 27, BUN 34, creatinine 2.58. The patient's sugars for the past 3 days were ranging between 79 to 147 without the use of metformin, on diabetic diet only. The patients vitamin D3 level was 17. Brain natriuretic peptide was 390 at admission and C-reactive protein was 13. Liver function tests were unremarkable at admission. The patient's 24-hour urine collection, protein level was over 5 g, 5360 mg; total urine volume at that point was 4000 mL and urine random total protein was 134. Transthoracic echocardiogram obtained on 08/23/17 showed EF of 60% to 65% with mild dynamic LVOT obstruction and moderate concentric LVH and left ventricular diastolic filling pattern consistent with pseudonormalization. There was mild mitral regurgitation and aortic valve leaflets were mildly thickened and mild tricuspid regurgitation. CONSULTATIONS DURING THE HOSPITAL STAY: Included Dr. Will from Nephrology. HOSPITALIZATION COURSE: Louie Carrillo is a 61-year-old male who presented to the hospital with worsening shortness of breath, edema and anxiety. The patient stated that originally he came into the hospital 2 weeks before complaining of shortness of breath when he lies down and he thought it was anxiety attacks. He was placed on Atarax and discharged home. He presented once again to the hospital. He stated that he gained approximately 20 pounds. He was hypoxemic and had generalized anasarca. He was noted to have marked proteinuria on his urinalysis and noted to have nephrotic syndrome range proteinuria on 24-hour urine collection. He was admitted to the hospital and diuresed with intravenous Lasix for several days. He was initially placed on 40 mg of Lasix for a couple of days and was increased to 60 mg of Lasix. On the last day prior to discharge, he was given a dose of Zaroxolyn. His weight improved dramatically from 254 pounds at admission to 232 pounds at discharge. He diuresed over 20 pounds. At discharge, the patient was recommended to continue diuretic at p.o. version of 40 mg of Lasix daily with an addition of Zaroxolyn in the morning. The patient's weight at discharge was 232 pounds and he is asked to weigh himself daily and to call Dr. Will, follow up with his primary care provider's office if his weight increases 5 pounds or above. He was educated on both diabetic and renal diet. Due to his renal function worsening during diuresis with a creatinine of 2.58 at the time of discharge, his metformin was discontinued. His sugars were actually rather well controlled with a glucose levels in between 150s to 75 on diabetic diet. He was educated at home to use diabetic, renal and cardiac diet. His blood pressure also had been rather uncontrolled and he was started on losartan due to his history of TORRI inhibitor allergy. 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 Otherwise, his breathing is not impaired and he is able to lie flat without any dyspnea. He is going to be discharged home. Recommendation is to follow up with Ms. Bautista and Dr. Will within the next week. We are also setting the patient with telemedicine as well as visiting nurse association at discharge. PHYSICAL EXAMINATION AT TIME OF DISCHARGE: Blood pressure of 143/66, heart rate of 57 and regular, respiratory rate 16, oxygen saturation 96% on room air. General: The patient is a very pleasant 61-year-old male with a weight today of 232 pounds. The patient is in no acute distress. Alert, awake, and oriented x3. HEENT: Head atraumatic, normocephalic. Eyes: Pupils equal, reactive to light and accommodation. Oropharynx clear. Mucosa moist. Neck: Supple. No JVD. No bruits bilaterally. Cardiovascular: Regular rate and rhythm. No murmur. Respiratory: Clear to auscultation bilaterally. Abdomen: Soft, nontender. Bowel sounds present in all 4 quadrants. Extremities: There is diffuse bilateral lower extremity edema +2 over the entire feet to the groins. The edema is definitely less pronounced than it was but still it is +2. On psychiatric evaluation, the patient is oriented x3 with no evidence of anxiety or depression. Please note that this is a short summary of the patient's hospitalization. Please refer to further medical record for details. TIME SPENT: Approximately 35 minutes were spent on the patient's discharge. ADDENDUM: Please note that the patient has low vitamin D level. This patient was placed on Calcitriol at 0.25 mcg daily at discharge. [id number]/CPS #: [id number] A- [id number]/CPS #: [id number] MAG
--- NOTE | 2017-08-29 12:03 | DS ---
DISCHARGE SUMMARY: ADDENDUM: Please note that the patient has low vitamin D level. This patient was placed on Calcitriol at 0.25 mcg daily at discharge. [id number]/[facility] #: [id number] [facility]PITALHeather
== END 2017-08-28 16:00 | disposition home health service (06) | DRG 468 ==
LOC: ED 11:27 → MEDTELE 16:42
PROVIDERS: ADMIT Internal Medicine; ATTEND Internal Medicine
DX: I12.9 Hypertensive chronic kidney disease with stage 1 through stage 4 chronic kidney disease, or unspecified chronic kidney disease (principal); E11.22 Type 2 diabetes mellitus with diabetic chronic kidney disease; K31.84 Gastroparesis; E11.40 Type 2 diabetes mellitus with diabetic neuropathy, unspecified; N18.3 Chronic kidney disease, stage 3 (moderate); E78.5 Hyperlipidemia, unspecified; M10.9 Gout, unspecified; I08.1 Rheumatic disorders of both mitral and tricuspid valves; I51.7 Cardiomegaly; R09.02 Hypoxemia; R06.00 Dyspnea, unspecified; F41.0 Panic disorder [episodic paroxysmal anxiety]; E03.9 Hypothyroidism, unspecified; E11.43 Type 2 diabetes mellitus with diabetic autonomic (poly)neuropathy; Z79.82 Long term (current) use of aspirin; Z88.8 Allergy status to other drugs, medicaments and biological substances; Z82.49 Family history of ischemic heart disease and other diseases of the circulatory system; Z82.5 Family history of asthma and other chronic lower respiratory diseases
CPT/HCPCS: 36415; 36600; 71045; 80048; 80053; 81003; 81015; 82550; 82553; 82652; 82668; 82803; 83605; 83735; 83880; 84100; 84156; 84484; 85025; 85379; 85730; 86140; 87040; 87502; 93005; 93306; 94640; 94760; 99284; A9270-GY; J1644; J1940

== ENCOUNTER 2017-10-10 10:14 | Emergency (ER) | payer OTHER ==
[2017-10-10 11:01] LABS: ABS Basophils 0.1 10^3/ul (0-0.2); ABS Eosinophils 0.3 10^3/ul (0-0.6); ABS Lymphocytes 1.5 10^3/ul (1.0-4.8); ABS Monocytes 0.6 10^3/ul (0-0.8); ABS Neutrophils 4.4 10^3/ul (1.5-7.7); ABS Nucleated RBC 0 10^3/ul; Eosinophil % 3.9 % (0-6); Hematocrit 31 % (42-52); Hemoglobin 10.5 g/dl (14.0-18.0); Lymphocyte % 21.8 % (25-47); Mean Corpuscular HGB Conc 34 g/dl (31-36); Mean Corpuscular Hemoglobin 27 pg (27-31); Mean Corpuscular Volume 80 fL (80-94); Mean Platelet Volume 7.4 um3 (7.4-10.4); Nucleated Red Blood Cells % 0; Platelet Count 267 10^3/ul (150-450); Red Blood Count 3.91 10^6/ul (4.0-5.4); Red Cell Distribution Width 15 % (10.5-15); White Blood Count 6.9 10^3/ul (3.5-10.8)
[2017-10-10 11:16] LABS: EGFR Non-African American 27.1 (>60)
[2017-10-10] MEDS ORDERED: Furosemide IV* 10 MG/ML 10 ML VIAL (100 MG) IV ONE (11:23)
[2017-10-10] MEDS ORDERED: Furosemide IV* 10 MG/ML VIAL (40 MG) ONE (11:26)
--- NOTE | 2017-10-10 11:26 | RAD ---
HISTORY: Difficulty breathing COMPARISONS: August 23, 2017 VIEWS: 4: Frontal dual-energy and lateral views of the chest. FINDINGS: CARDIOMEDIASTINAL SILHOUETTE: The cardiomediastinal silhouette is normal. MELISA: The melisa are normal. PLEURA: The costophrenic angles are sharp. No pleural abnormalities are noted. LUNG PARENCHYMA: There is hyperinflation with flattening of the diaphragm and expansion of the AP diameter of the chest. ABDOMEN: The upper abdomen is clear. There is no subphrenic gas. BONES AND SOFT TISSUES: No bone or soft tissue abnormalities are noted. OTHER: None. IMPRESSION: HYPERINFLATION, CONSISTENT WITH COPD. NO ACTIVE CARDIOPULMONARY DISEASE.
[2017-10-10 13:46] VITALS: BP 156/74
--- NOTE | 2017-10-10 16:46 | ED ---
Bebeto Reyes Jason, scribed for Amando Farrell MD on 10/10/17 at 1154 . Lower Extremity - HPI Summary HPI Summary: 61 year old male with a history of CHF and was directed from Urgent care for further evaluation after presenting there with worsening Bilateral lower extremity edema and some SOB after his lasix medication ran out 3 days ago. He denies any CP, palpitations. He denies any history of PE/DVT. Patient reports that he was given a precription for Lasix at Urgent care. - History of Current Complaint Chief Complaint: EDShortnessOfBreath Stated Complaint: DIFF BREATHING Time Seen by Provider: 10/10/17 10:50 Hx Obtained From: Patient Onset/Duration: Still Present - 3 days ago Pain Intensity: 0 Pain Scale Used: 0-10 Numeric Timing: Constant Associated Signs And Symptoms: Positive: Negative - CP, palpitation, fevers, chills, nausea, and vomiting. Aggravating Factor(s): Nothing Alleviating Factor(s): Nothing - Allergies/Home Medications Allergies/Adverse Reactions: Allergies Allergy/AdvReac Type Severity Reaction Status Date / Time lisinopril Allergy Difficulty Verified 10/10/17 10:22 Breathing niacin Allergy Rash Verified 10/10/17 10:22 PMH/Surg Hx/FS Hx/Imm Hx Previously Healthy: No Endocrine/Hematology History: Reports: Hx Diabetes - TYPE 2 / ON ORAL MEDS Denies: Hx Thyroid Disease Cardiovascular History: Reports: Hx Angina, Hx Hypercholesterolemia, Hx Hypertension, Other Cardiovascular Problems/Disorders - GOUT Denies: Hx Coronary Artery Disease, Hx Myocardial Infarction, Hx Pacemaker/ ICD, Hx Valvular Heart Disease Respiratory History: Reports: Hx Pneumonia Denies: Hx Asthma, Hx Chronic Obstructive Pulmonary Disease (COPD), Other Respiratory Problems/Disorders GI History: Denies: Hx Ulcer Musculoskeletal History: Reports: Hx Gout, Other Musculoskeletal History - HIP PAIN Denies: Hx Arthritis, Hx Osteoporosis, Hx Scoliosis Sensory History: Reports: Hx Contacts or Glasses Denies: Hx Hearing Aid Opthamlomology History: Reports: Hx Contacts or Glasses Neurological History: Reports: Hx Headaches Denies: Other Neuro Impairments/Disorders Psychiatric History: Reports: Hx Anxiety, Hx Panic Disorder - Surgical History Surgery Procedure, Year, and Place: POLYPS REMOVED INTESTINE. APPENDECTOMY. KNEE SURGERY 1998 Hx Anesthesia Reactions: No Infectious Disease History: No Infectious Disease History: Denies: Hx Clostridium Difficile, Hx Hepatitis, Hx Human Immunodeficiency Virus (HIV), Hx of Known/Suspected MRSA, Hx Shingles, Hx Tuberculosis, Hx Known/ Suspected VRE, Hx Known/Suspected VRSA, History Other Infectious Disease, Traveled Outside the [place] in Last 30 Days - Family History Known Family History: Positive: Cardiac Disease, Hypertension, Other - father - asthma - Social History Alcohol Use: None Alcohol Amount: quit Hx Substance Use: No Substance Use Type: Reports: None Hx Tobacco Use: No Smoking Status (MU): Never Smoked Tobacco Review of Systems Negative: Fever, Chills Negative: Palpitations, Chest Pain Positive: Shortness Of Breath - minimal Negative: Vomiting, Nausea Positive: Other - bilateral lower extremity swelling All Other Systems Reviewed And Are Negative: Yes Physical Exam - Summary Physical Exam Summary: Constitutional: Well-developed, Well-nourished, Alert. (-) Distressed Skin: Warm, Dry HENT: Normocephalic; Atraumatic Eyes: Conjunctiva normal Neck: Musculoskeletal ROM normal neck. (-) JVD, (-) Stridor, (-) Tracheal deviation Cardio: Rhythm regular, rate normal, Heart sounds normal; Intact distal pulses; The pedal pulses are 2+ and symmetric. Radial pulses are 2+ and symmetric. (-) Murmur Pulmonary/Chest wall: Effort normal. (-) Respiratory distress, (-) Wheezes, (-) Rales Abd: Soft, (-) Tenderness, (-) Distension, (-) Guarding, (-) Rebound Musculoskeletal: 2+ bilateral lower extremity lower edema Lymph: (-) Cervical adenopathy Neuro: Alert, Oriented x3 Psych: Mood and affect Normal Triage Information Reviewed: Yes Vital Signs On Initial Exam: Initial Vitals BP 139/69 10/10/17 10:20 Vital Signs Reviewed: Yes Diagnostics - Vital Signs Vital Signs Temp Pulse Resp BP Pulse Ox 10/10/17 11:40 57 14 138/79 96 10/10/17 11:00 56 16 96 10/10/17 10:30 57 15 145/87 97 10/10/17 10:21 98.2 F 75 22 139/69 97 10/10/17 10:20 139/69 - Laboratory Lab Results: Lab Results 10/10/17 10/10/17 10/10/17 Range/Units 10:50 10:50 10:50 WBC 6.9 (3.5-10.8) 10^3/ul RBC 3.91 L (4.0-5.4) 10^6/ul Hgb 10.5 L (14.0-18.0) g/dl Hct 31 L (42-52) % MCV 80 (80-94) fL MCH 27 (27-31) pg MCHC 34 (31-36) g/dl RDW 15 (10.5-15) % Plt Count 267 (150-450) 10^3/ul MPV 7.4 (7.4-10.4) um3 Neut % (Auto) 64.2 (38-83) % Lymph % (Auto) 21.8 L (25-47) % Aurora % (Auto) 8.7 H (0-7) % Eos % (Auto) 3.9 (0-6) % Baso % (Auto) 1.4 (0-2) % Absolute Neuts (auto) 4.4 (1.5-7.7) 10^3/ul Absolute Lymphs (auto) 1.5 (1.0-4.8) 10^3/ul Absolute Monos (auto) 0.6 (0-0.8) 10^3/ul Absolute Eos (auto) 0.3 (0-0.6) 10^3/ul Absolute Basos (auto) 0.1 (0-0.2) 10^3/ul Absolute Nucleated RBC 0 10^3/ul Nucleated RBC % 0 Sodium 137 L (139-145) mmol/L Potassium 4.8 (3.5-5.0) mmol/L Chloride 106 (101-111) mmol/L Carbon Dioxide 25 (22-32) mmol/L Anion Gap 6 (2-11) mmol/L BUN 43 H (6-24) mg/dL Creatinine 2.45 H (0.67-1.17) mg/dL Est GFR ( Amer) 34.9 (>60) Est GFR (Non-Af Amer) 27.1 (>60) BUN/Creatinine Ratio 17.6 (8-20) Glucose 98 (70-100) mg/dL Lactic Acid (0.5-2.0) mmol/L Calcium 8.8 (8.6-10.3) mg/dL Total Bilirubin 0.30 (0.2-1.0) mg/dL AST 11 L (13-39) U/L ALT 13 (7-52) U/L Alkaline Phosphatase 47 (34-104) U/L Troponin I 0.00 (<0.04) ng/mL B-Natriuretic Peptide 353 H ( - 100) pg/mL Total Protein 7.3 (6.4-8.9) g/dL Albumin 3.5 (3.2-5.2) g/dL Globulin 3.8 (2-4) g/dL Albumin/Globulin Ratio 0.9 L (1-3) 10/10/17 Range/Units 10:50 WBC (3.5-10.8) 10^3/ul RBC (4.0-5.4) 10^6/ul Hgb (14.0-18.0) g/dl Hct (42-52) % MCV (80-94) fL MCH (27-31) pg MCHC (31-36) g/dl RDW (10.5-15) % Plt Count (150-450) 10^3/ul MPV (7.4-10.4) um3 Neut % (Auto) (38-83) % Lymph % (Auto) (25-47) % Aurora % (Auto) (0-7) % Eos % (Auto) (0-6) % Baso % (Auto) (0-2) % Absolute Neuts (auto) (1.5-7.7) 10^3/ul Absolute Lymphs (auto) (1.0-4.8) 10^3/ul Absolute Monos (auto) (0-0.8) 10^3/ul Absolute Eos (auto) (0-0.6) 10^3/ul Absolute Basos (auto) (0-0.2) 10^3/ul Absolute Nucleated RBC 10^3/ul Nucleated RBC % Sodium (139-145) mmol/L Potassium (3.5-5.0) mmol/L Chloride (101-111) mmol/L Carbon Dioxide (22-32) mmol/L Anion Gap (2-11) mmol/L BUN (6-24) mg/dL Creatinine (0.67-1.17) mg/dL Est GFR ( Amer) (>60) Est GFR (Non-Af Amer) (>60) BUN/Creatinine Ratio (8-20) Glucose (70-100) mg/dL Lactic Acid 0.5 (0.5-2.0) mmol/L Calcium (8.6-10.3) mg/dL Total Bilirubin (0.2-1.0) mg/dL AST (13-39) U/L ALT (7-52) U/L Alkaline Phosphatase (34-104) U/L Troponin I (<0.04) ng/mL B-Natriuretic Peptide ( - 100) pg/mL Total Protein (6.4-8.9) g/dL Albumin (3.2-5.2) g/dL Globulin (2-4) g/dL Albumin/Globulin Ratio (1-3) Result Diagrams: 10/10/17 10:50 10/10/17 10:50 Lab Statement: Any lab studies that have been ordered have been reviewed, and results considered in the medical decision making process. - Radiology cxr Radiology Interpretation Completed By: Radiologist - CXR reveals, per radiologist, HYPERINFLATION, CONSISTENT WITH COPD. NO ACTIVE CARDIOPULMONARY DISEASE. ED physician has reviewed this radiology report. - EKG 1031 Cardiac Rate: Bradycardia EKG Rhythm: Sinus Bradycardia - [address] Segment: Normal Ectopy: None Re-Evaluation - Re-Evaluation First Eval Re-Evaluation Time: 13:05 Change: Improved Comment: Patient condition improveed. Pt is hemodynamically stable and has good urine output after IV lasix. Patient will be discharged. Patient is agreeable with this plan. Lower Extremity Course/Dx - Course Course Of Treatment: 61 year old male who presents with worsening leg edema and mild SOB after his Lasix ran out. Owrk up is remarkable for BNP of 353, XCR shows no edema. Patient is completely HD stable and was given a dose of IV Lasix with good urine output. Patient is safe for discharge home with strict return precautions and will otherwise follow up with his PCP. Patient already has a Prescription for Lasix - Diagnoses Provider Diagnoses: CHF (congestive heart failure), Medication refill Discharge - Sign-Out/Discharge Documenting (check all that apply): Discharge - Discharge Plan Condition: Improved Disposition: HOME Patient Education Materials: Heart Failure (ED) Referrals: Daiana Bautista [Primary Care Provider] - Additional Instructions: RETURN TO THE EMERGENCY DEPARTMENT FOR CHANGING OR WORSENING SYMPTOMS - Billing Disposition and Condition Condition: IMPROVED Disposition: HOME The documentation as recorded by the Bebeto gifford Jason accurately reflects the service I personally performed and the decisions made by , Amando Farrell MD.
== END 2017-10-10 13:49 | disposition home or self-care (01) ==
LOC: ED 10:14
DX: I11.0 Hypertensive heart disease with heart failure (principal); I50.9 Heart failure, unspecified; E11.9 Type 2 diabetes mellitus without complications; I20.9 Angina pectoris, unspecified
CPT/HCPCS: 36415; 71046; 80053; 83605; 83880; 84484; 85025; 93005; 99283; J1940

== ENCOUNTER 2017-10-12 20:42 | Emergency (ER) | payer OTHER ==
[2017-10-12 21:32] LABS: ABS Basophils 0.1 10^3/ul (0-0.2); ABS Eosinophils 0.3 10^3/ul (0-0.6); ABS Lymphocytes 1.6 10^3/ul (1.0-4.8); ABS Monocytes 0.7 10^3/ul (0-0.8); ABS Neutrophils 5.3 10^3/ul (1.5-7.7); ABS Nucleated RBC 0 10^3/ul; Eosinophil % 3.7 % (0-6); Hematocrit 31 % (42-52); Hemoglobin 10.4 g/dl (14.0-18.0); Lymphocyte % 19.7 % (25-47); Mean Corpuscular HGB Conc 34 g/dl (31-36); Mean Corpuscular Hemoglobin 27 pg (27-31); Mean Corpuscular Volume 80 fL (80-94); Nucleated Red Blood Cells % 0; Platelet Count 287 10^3/ul (150-450); Red Blood Count 3.84 10^6/ul (4.0-5.4); Red Cell Distribution Width 15 % (10.5-15)
[2017-10-12 21:40] LABS: INR 0.97 (0.77-1.02)
[2017-10-12 21:42] LABS: EGFR Non-African American 22.8 (>60)
--- NOTE | 2017-10-12 21:47 | RAD ---
HISTORY: Shortness of breath COMPARISONS: October 10, 2017 VIEWS: 1: frontal portable view of the chest at 9:38 PM FINDINGS: LINES AND TUBES: None. CARDIOMEDIASTINAL SILHOUETTE: The cardiomediastinal silhouette is normal for portable technique. PLEURA: The costophrenic angles are sharp. No pleural abnormalities are noted. LUNG PARENCHYMA: The lungs are clear. ABDOMEN: The upper abdomen is clear. There is no subphrenic gas. BONES AND SOFT TISSUES: No bone or soft tissue abnormalities are noted. IMPRESSION: NO ACTIVE CARDIOPULMONARY DISEASE.
[2017-10-12 23:25] VITALS: BP 136/62
--- NOTE | 2017-10-12 23:26 | ED ---
Frederick Reyes Julia, scribed for Harleen Lacey MD on 10/12/17 at 2109 . Shortness of Breath - HPI Summary HPI Summary: This patient is a 61 year old M presenting to [facility] with a chief complaint of SOB and intermittent throat tightening since 18:30. SOB aggravated by exertion. Pt states he took "water pill" at 18:30. He has been taking it for the past month. He was in ED two days ago because he ran out of his prescription. He was given another prescription and has been taking them since . He states he takes one pill in the morning and one at night. - History of Current Complaint Chief Complaint: EDShortnessOfBreath Time Seen by Provider: 10/12/17 20:55 Hx Obtained From: Patient Onset/Duration: Lasting Hours Timing: Constant Dyspnea At: Rest Aggrevating Factors: Other - exertion Associated Signs & Symptoms: Nasal Congestion - "throat tightening" - Allergy/Home Medications Allergies/Adverse Reactions: Allergies Allergy/AdvReac Type Severity Reaction Status Date / Time lisinopril Allergy Difficulty Verified 10/12/17 21:09 Breathing niacin Allergy Rash Verified 10/12/17 21:09 PMH/Surg Hx/FS Hx/Imm Hx Endocrine/Hematology History: Reports: Hx Diabetes - TYPE 2 / ON ORAL MEDS Denies: Hx Thyroid Disease Cardiovascular History: Reports: Hx Angina, Hx Hypercholesterolemia, Hx Hypertension, Other Cardiovascular Problems/Disorders - GOUT Denies: Hx Coronary Artery Disease, Hx Myocardial Infarction, Hx Pacemaker/ ICD, Hx Valvular Heart Disease Respiratory History: Reports: Hx Pneumonia Denies: Hx Asthma, Hx Chronic Obstructive Pulmonary Disease (COPD), Other Respiratory Problems/Disorders GI History: Denies: Hx Ulcer Musculoskeletal History: Reports: Hx Gout, Other Musculoskeletal History - HIP PAIN Denies: Hx Arthritis, Hx Osteoporosis, Hx Scoliosis Sensory History: Reports: Hx Contacts or Glasses Denies: Hx Hearing Aid Opthamlomology History: Reports: Hx Contacts or Glasses Neurological History: Reports: Hx Headaches Denies: Other Neuro Impairments/Disorders Psychiatric History: Reports: Hx Anxiety, Hx Panic Disorder - Surgical History Surgery Procedure, Year, and Place: POLYPS REMOVED INTESTINE. APPENDECTOMY. KNEE SURGERY 1998 Hx Anesthesia Reactions: No Infectious Disease History: No Infectious Disease History: Denies: Hx Clostridium Difficile, Hx Hepatitis, Hx Human Immunodeficiency Virus (HIV), Hx of Known/Suspected MRSA, Hx Shingles, Hx Tuberculosis, Hx Known/ Suspected VRE, Hx Known/Suspected VRSA, History Other Infectious Disease, Traveled Outside the [place] in Last 30 Days - Family History Known Family History: Positive: Cardiac Disease, Hypertension, Other - father - asthma, emphysema - Social History Alcohol Use: None Alcohol Amount: quit Hx Substance Use: No Substance Use Type: Reports: None Hx Tobacco Use: No Smoking Status (MU): Never Smoked Tobacco Review of Systems Positive: Other - throat tightening Positive: Shortness Of Breath All Other Systems Reviewed And Are Negative: Yes Physical Exam - Summary Physical Exam Summary: VITAL SIGNS: Reviewed. GENERAL: Patient is a well-developed and nourished male who is lying comfortable in the stretcher. Patient is not in any acute respiratory distress. HEAD AND FACE: No signs of trauma. No ecchymosis, hematomas or skull depressions. No sinus tenderness. EYES: PERRLA, EOMI x 2, No injected conjunctiva, no nystagmus. EARS: Hearing grossly intact. Ear canals and tympanic membranes are within normal limits. MOUTH: Oropharynx within normal limits. NECK: Supple, trachea is midline, no adenopathy, no JVD, no carotid bruit, no c- spine tenderness, neck with full ROM. CHEST: Symmetric, no tenderness at palpation LUNGS: Clear to auscultation bilaterally. No wheezing or crackles. CVS: Regular rate and rhythm, S1 and S2 present, no murmurs or gallops appreciated. ABDOMEN: Soft, non-tender. Abdomen is distended. No rebound no guarding, and no masses palpated. Bowel sounds are normal. EXTREMITIES: FROM in all major joints, bilateral lower extremity edema, no cyanosis or clubbing. NEURO: Alert and oriented x 3. No acute neurological deficits. Speech is normal and follows commands. SKIN: Dry and warm Triage Information Reviewed: Yes Vital Signs On Initial Exam: Initial Vitals Temp Pulse Resp BP Pulse Ox 97.8 F 59 24 158/76 99 10/12/17 20:45 10/12/17 20:45 10/12/17 20:45 10/12/17 20:45 10/12/17 20:45 Vital Signs Reviewed: Yes Diagnostics - Vital Signs Vital Signs Temp Pulse Resp BP Pulse Ox 10/12/17 20:45 97.8 F 59 24 158/76 99 - Laboratory Result Diagrams: 10/12/17 21:15 10/12/17 21:15 Lab Statement: Any lab studies that have been ordered have been reviewed, and results considered in the medical decision making process. - Radiology CXR Radiology Interpretation Completed By: Radiologist - NO ACTIVE CARDIOPULMONARY DISEASE. ED Physcian has reviewed this report. - EKG 2127 Cardiac Rate: Bradycardia - at 57 BPM EKG Rhythm: Sinus Bradycardia EKG Interpretation: Normal axis. Normal interval. No ischemic changes. Re-Evaluation - Re-Evaluation 1 Re-Evaluation Time: 22:45 Comment: Results discussed with pt. Pt will be discharged. Pt instructed to decrease Lasix to 40mg once a day and to keep appointment with Dr. Will. Course/Dx - Course Course Of Treatment: Pt presents with SOB and intermittent throat tightening since 18:30. SOB aggravated by exertion. Pt states he took "water pill" at 18: 30. Pt has a hx of renal insufficency. Pt's difficulty breathing is most likely due to anxiety. Kidney function is slightly worse than before. Pt instructed to decrease Laasix to 40mg once a day. And EKG and CXR are of no acute concern.Bloodwork obtained. Pt is instructed to follow up with Dr. Will as scheduled on 11/02/17. - Diagnoses Provider Diagnoses: Anxiety, Chronic renal insufficiency Discharge - Sign-Out/Discharge Documenting (check all that apply): Discharge - Discharge Plan Condition: Stable Disposition: HOME Patient Education Materials: Anxiety (ED), Impaired Kidney Function (ED) Referrals: Alonzo Will MD [Medical Doctor] - 2 Weeks (Follow up with Dr. Will as scheduled on 11/02/17.) Additional Instructions: Decrease Lasix to 40mg once a day. RETURN TO THE EMERGENCY DEPARTMENT FOR CHANGING OR WORSENING SYMPTOMS. The documentation as recorded by the Frederick gifford Julia accurately reflects the service I personally performed and the decisions made by me, Harleen Lacey MD.
== END 2017-10-12 23:07 | disposition home or self-care (01) ==
LOC: ED 20:42
DX: F41.9 Anxiety disorder, unspecified (principal); E11.22 Type 2 diabetes mellitus with diabetic chronic kidney disease; I12.9 Hypertensive chronic kidney disease with stage 1 through stage 4 chronic kidney disease, or unspecified chronic kidney disease; N18.9 Chronic kidney disease, unspecified; Z79.84 Long term (current) use of oral hypoglycemic drugs; R06.02 Shortness of breath; E78.00 Pure hypercholesterolemia, unspecified; Z88.8 Allergy status to other drugs, medicaments and biological substances
CPT/HCPCS: 36415; 71045; 80053; 83735; 83880; 84484; 85025; 85610; 85730; 93005; 99282

== ENCOUNTER 2017-10-30 20:22 | Emergency (ER) | payer OTHER ==
--- NOTE | 2017-10-30 22:00 | RAD ---
INDICATION: Cough and congestion. COMPARISON: Comparison is made with a prior study from October 10, 2017. TECHNIQUE: Dual-energy PA and lateral views of the chest were obtained. FINDINGS: The heart is within normal limits in size. Mediastinal and hilar contours appear within normal limits. There is a small patchy infiltrate adjacent to the left heart border. The lungs are otherwise clear. No pleural effusion is seen. IMPRESSION: SMALL LEFT LOWER LOBE INFILTRATE.
[2017-10-30] MEDS ORDERED: Albuterol/Ipratropium NEB.SOL* Albuterol 2.5 MG/Ipratropium 0.5 MG 3 ML INH ONE (22:09)
[2017-10-30 22:20] LABS: ABS Basophils 0.1 10^3/ul (0-0.2); ABS Eosinophils 0.3 10^3/ul (0-0.6); ABS Lymphocytes 1.2 10^3/ul (1.0-4.8); ABS Monocytes 0.8 10^3/ul (0-0.8); ABS Nucleated RBC 0 10^3/ul; Eosinophil % 3.6 % (0-6); Hematocrit 30 % (42-52); Hemoglobin 10.1 g/dl (14.0-18.0); Lymphocyte % 15.8 % (25-47); Mean Corpuscular HGB Conc 34 g/dl (31-36); Mean Corpuscular Hemoglobin 27 pg (27-31); Mean Corpuscular Volume 80 fL (80-94); Mean Platelet Volume 7.3 um3 (7.4-10.4); Nucleated Red Blood Cells % 0.1; Platelet Count 232 10^3/ul (150-450); Red Blood Count 3.78 10^6/ul (4.0-5.4); Red Cell Distribution Width 15 % (10.5-15); White Blood Count 7.3 10^3/ul (3.5-10.8)
[2017-10-30 22:37] LABS: EGFR Non-African American 22.6 (>60)
--- NOTE | 2017-10-30 22:42 | ED ---
Respiratory - HPI Summary HPI Summary: 61 male presents to ED with complaints of shortness of breath, cough, nasal and chest congestion that has been ongoing for the past 2 days. States cough is productive at times. Denies hemoptysis. States shortness of breath is worse on exertion and when lying down. She is having coughing fits. Denies fever chills, nausea or vomiting, bodyaches, abdominal pain, headache or chest pain. Was seen by PCP today and given an antibiotic that he cannot recall the name of. States he took 1 days dose and has not had relief. Is also taking over-the -counter cough medication he is not know the name of. Past medical history significant for hypertension, anemia and chronic kidney disease and diabetes. No known respiratory issues. Does have history of pneumonia - History of Current Complaint Chief Complaint: EDUpperRespComplaint Stated Complaint: COUGH Time Seen by Provider: 10/30/17 21:13 Hx Obtained From: Patient Onset/Duration: Sudden Onset, Lasting Days, Still Present Initial Severity: Mild Current Severity: Moderate Pain Intensity: 6 Character: Wheezing, Cough (Productive) Sputum Amount: Scant Sputum Color: Yellow Aggravating Factor(s): URI, Deep Breaths, Recumbent Position Associated Signs and Symptoms: SOB - Quadrant, Wheezing, Chest Pain with Cough - Endocrine - Allergy/Home Medications Allergies/Adverse Reactions: Allergies Allergy/AdvReac Type Severity Reaction Status Date / Time lisinopril Allergy Difficulty Verified 10/30/17 20:30 Breathing niacin Allergy Rash Verified 10/30/17 20:30 Home Medications: Home Medications Furosemide TAB* [Lasix TAB*] 40 mg PO DAILY 10/30/17 [History Confirmed 10/30/17 ] PMH/Surg Hx/FS Hx/Imm Hx Endocrine/Hematology History: Reports: Hx Diabetes - TYPE 2 / ON ORAL MEDS Denies: Hx Thyroid Disease Cardiovascular History: Reports: Hx Angina, Hx Hypercholesterolemia, Hx Hypertension, Other Cardiovascular Problems/Disorders - GOUT Denies: Hx Coronary Artery Disease, Hx Myocardial Infarction, Hx Pacemaker/ ICD, Hx Valvular Heart Disease Respiratory History: Reports: Hx Pneumonia Denies: Hx Asthma, Hx Chronic Obstructive Pulmonary Disease (COPD), Other Respiratory Problems/Disorders GI History: Denies: Hx Ulcer Musculoskeletal History: Reports: Hx Gout, Other Musculoskeletal History - HIP PAIN Denies: Hx Arthritis, Hx Osteoporosis, Hx Scoliosis Sensory History: Reports: Hx Contacts or Glasses Denies: Hx Hearing Aid Opthamlomology History: Reports: Hx Contacts or Glasses Neurological History: Reports: Hx Headaches Denies: Other Neuro Impairments/Disorders Psychiatric History: Reports: Hx Anxiety, Hx Panic Disorder - Surgical History Surgery Procedure, Year, and Place: POLYPS REMOVED INTESTINE. APPENDECTOMY. KNEE SURGERY 1998 Hx Anesthesia Reactions: No Infectious Disease History: No Infectious Disease History: Denies: Hx Clostridium Difficile, Hx Hepatitis, Hx Human Immunodeficiency Virus (HIV), Hx of Known/Suspected MRSA, Hx Shingles, Hx Tuberculosis, Hx Known/ Suspected VRE, Hx Known/Suspected VRSA, History Other Infectious Disease, Traveled Outside the [place] in Last 30 Days - Family History Known Family History: Positive: Cardiac Disease, Hypertension, Other - father - asthma, emphysema - Social History Alcohol Use: None Alcohol Amount: quit Hx Substance Use: No Substance Use Type: Reports: None Hx Tobacco Use: No Smoking Status (MU): Never Smoked Tobacco Review of Systems Constitutional: Negative ENT: Negative Cardiovascular: Negative Positive: Shortness Of Breath, Cough Gastrointestinal: Negative Musculoskeletal: Negative Neurological: Negative All Other Systems Reviewed And Are Negative: Yes Physical Exam Triage Information Reviewed: Yes Vital Signs On Initial Exam: Initial Vitals Temp Pulse Resp BP Pulse Ox 98.4 F 64 16 162/75 95 10/30/17 20:25 10/30/17 20:25 10/30/17 20:25 10/30/17 20:25 10/30/17 20:25 95 O2 noted. Vital Signs Reviewed: Yes Appearance: Positive: Well-Appearing, No Pain Distress, Well-Nourished Skin: Positive: Warm, Skin Color Reflects Adequate Perfusion, Dry. Negative: Cold, Numb, Cyanosis @, Pale, Erythema @ Head/Face: Positive: Normal Head/Face Inspection Eyes: Positive: Conjunctiva Clear ENT: Positive: Pharynx normal Neck: Positive: Supple, Nontender Respiratory/Lung Sounds: Positive: Clear to Auscultation, Breath Sounds Present , Decreased Breath Sounds, Rhonchi - Left lower, Wheezes - Diffuse worse on left lower lung field. Audible wheezing was heard without stethoscope as well. Negative: Subcutaneous Emphysema, Stridor, Tracheal Deviation, Unable to speak in full sentences, Fatigue Cardiovascular: Positive: Normal, RRR, Pulses are Symmetrical in both Upper and Lower Extremities. Negative: Murmur, Rub Abdomen Description: Positive: Nontender, Soft Bowel Sounds: Positive: Present Musculoskeletal: Positive: Normal, Strength/ROM Intact Neurological: Positive: Normal, Sensory/Motor Intact, Alert, Oriented to Person Place, Time, NV Bundle Intact Distally, Normal Gait Diagnostics - Vital Signs Vital Signs Temp Pulse Resp BP Pulse Ox 10/30/17 22:20 65 20 95 10/30/17 20:25 98.4 F 64 16 162/75 95 - Laboratory Lab Results: Lab Results 10/30/17 10/30/17 10/30/17 Range/Units 21:46 22:09 22:09 WBC 7.3 (3.5-10.8) 10^3/ul RBC 3.78 L (4.0-5.4) 10^6/ul Hgb 10.1 L (14.0-18.0) g/dl Hct 30 L (42-52) % MCV 80 (80-94) fL MCH 27 (27-31) pg MCHC 34 (31-36) g/dl RDW 15 (10.5-15) % Plt Count 232 (150-450) 10^3/ul MPV 7.3 L (7.4-10.4) um3 Neut % (Auto) 68.0 (38-83) % Lymph % (Auto) 15.8 L (25-47) % [place] % (Auto) 11.3 H (0-7) % Eos % (Auto) 3.6 (0-6) % Baso % (Auto) 1.3 (0-2) % Absolute Neuts (auto) 5.0 (1.5-7.7) 10^3/ul Absolute Lymphs (auto) 1.2 (1.0-4.8) 10^3/ul Absolute Monos (auto) 0.8 (0-0.8) 10^3/ul Absolute Eos (auto) 0.3 (0-0.6) 10^3/ul Absolute Basos (auto) 0.1 (0-0.2) 10^3/ul Absolute Nucleated RBC 0 10^3/ul Nucleated RBC % 0.1 Sodium 134 L (139-145) mmol/L Potassium 4.3 (3.5-5.0) mmol/L Chloride 102 (101-111) mmol/L Carbon Dioxide 24 (22-32) mmol/L Anion Gap 8 (2-11) mmol/L BUN 42 H (6-24) mg/dL Creatinine 2.87 H (0.67-1.17) mg/dL Est GFR ( Amer) 29.0 (>60) Est GFR (Non-Af Amer) 22.6 (>60) BUN/Creatinine Ratio 14.6 (8-20) Glucose 88 (70-100) mg/dL Lactic Acid (0.5-2.0) mmol/L Calcium 8.7 (8.6-10.3) mg/dL Total Bilirubin 0.30 (0.2-1.0) mg/dL AST 12 L (13-39) U/L ALT 14 (7-52) U/L Alkaline Phosphatase 38 (34-104) U/L Total Protein 7.4 (6.4-8.9) g/dL Albumin 3.6 (3.2-5.2) g/dL Globulin 3.8 (2-4) g/dL Albumin/Globulin Ratio 0.9 L (1-3) Influenza A (Rapid) Negative (Negative) Influenza B (Rapid) Negative (Negative) 10/30/17 Range/Units 22:09 WBC (3.5-10.8) 10^3/ul RBC (4.0-5.4) 10^6/ul Hgb (14.0-18.0) g/dl Hct (42-52) % MCV (80-94) fL MCH (27-31) pg MCHC (31-36) g/dl RDW (10.5-15) % Plt Count (150-450) 10^3/ul MPV (7.4-10.4) um3 Neut % (Auto) (38-83) % Lymph % (Auto) (25-47) % [place] % (Auto) (0-7) % Eos % (Auto) (0-6) % Baso % (Auto) (0-2) % Absolute Neuts (auto) (1.5-7.7) 10^3/ul Absolute Lymphs (auto) (1.0-4.8) 10^3/ul Absolute Monos (auto) (0-0.8) 10^3/ul Absolute Eos (auto) (0-0.6) 10^3/ul Absolute Basos (auto) (0-0.2) 10^3/ul Absolute Nucleated RBC 10^3/ul Nucleated RBC % Sodium (139-145) mmol/L Potassium (3.5-5.0) mmol/L Chloride (101-111) mmol/L Carbon Dioxide (22-32) mmol/L Anion Gap (2-11) mmol/L BUN (6-24) mg/dL Creatinine (0.67-1.17) mg/dL Est GFR ( Amer) (>60) Est GFR (Non-Af Amer) (>60) BUN/Creatinine Ratio (8-20) Glucose (70-100) mg/dL Lactic Acid 0.4 L (0.5-2.0) mmol/L Calcium (8.6-10.3) mg/dL Total Bilirubin (0.2-1.0) mg/dL AST (13-39) U/L ALT (7-52) U/L Alkaline Phosphatase (34-104) U/L Total Protein (6.4-8.9) g/dL Albumin (3.2-5.2) g/dL Globulin (2-4) g/dL Albumin/Globulin Ratio (1-3) Influenza A (Rapid) (Negative) Influenza B (Rapid) (Negative) Result Diagrams: 10/30/17 22:09 10/30/17 22:09 Lab Statement: Any lab studies that have been ordered have been reviewed, and results considered in the medical decision making process. - Radiology chest Xray Interpretation: Positive (See Comments) Radiology Interpretation Completed By: Radiologist - IMPRESSION: SMALL LEFT LOWER LOBE INFILTRATE. Re-Evaluation - Re-Evaluation First Eval Re-Evaluation Time: 22:50 Change: Improved - Had relief after DuoNeb. Wheezing was still present however improved some. Updated on labs and imaging results. Up-to-date on plan patient under understands and agrees. Will be discharged. Disposition - Course Course Of Treatment: Labs, ABGs, chest x-ray, influenza swab obtained. Labs unremarkable other than chronic anemia and renal disease. ABG is normal with a O2 of 95%. Influenza negative. Patient had slightly elevated blood pressure however is already being treated for HTN recheck and follow-up with PCP. Chest x-ray showed small left lower lobe infiltrate. Patient given DuoNeb while in ED and had significant relief. Given first dose of azithromycin and prednisone while in ED. Discontinue anitbiotic (believed to be amoxicillin) given prior as unknown. JULIAN wallace was low risk 1 and recommends outpatient treatment. will continue at short 3 day course prednisone and azithromycin at home along with inhaler. Recommend coricidin, salt water garlges, saline nasal sprays. O2 96% at discharge. Increase fluid intake and get plenty of rest. Follow-up with PCP in one to 2 days to ensure improvement. Aware worsening signs and symptoms to watch out for. No other concerns at this time. Normal physical exam otherwise. - Differential Dx - Cardiopulmonary Differential Diagnoses - Cardiopulmonary: Bronchitis, Lower Resp Infection - Diagnoses Provider Diagnoses: Pneumonia Discharge - Sign-Out/Discharge Documenting (check all that apply): Discharge - Discharge Plan Condition: Good Disposition: HOME Prescriptions: Albuterol HFA INHALER* [Ventolin HFA Inhaler*] 1 - 2 puff INH Q4H PRN #1 mdi PRN Reason: Sob/Wheezing Azithromycin TAB* [Zithromax TAB (Z-TABITHA) 250 mg #6 tabs] 250 mg PO DAILY #4 tab predniSONE TAB* [Deltasone TAB*] 20 mg PO DAILY #2 tab Patient Education Materials: Community Acquired Pneumonia (ED) Referrals: Daiana Bautista [Primary Care Provider] - Additional Instructions: Take prescribed medication as directed starting tomorrow. Discontinue other antibiotic. Remember that the steroid can ambulate your glucose and be sure to keep a close eye over the next 1-2 weeks. Recommend taking CordicinBP which is [id number] to help with congestion and cough. Use inhaler every 4 hours for shortness of breath and wheezing. Increase fluid intake and get plenty of rest. Hot showers and humidified air. Salt water gargles and nasal saline rinses. If symptoms worsen, persist or new symptoms develop please return to ED as we discussed. Follow-up with her primary care provider in 2 days to ensure improvement, sooner if needed. - Billing Disposition and Condition Condition: GOOD Disposition: HOME
[2017-10-30] MEDS ORDERED: predniSONE TAB* 20 MG PO ONE (23:27)
[2017-10-30] MEDS ORDERED: Azithromycin TAB* 250 MG PO ONE (23:29)
[2017-10-30 23:54] VITALS: BP 134/65
== END 2017-10-31 00:15 | disposition home or self-care (01) ==
LOC: ED 20:22
DX: J18.9 Pneumonia, unspecified organism (principal); R06.02 Shortness of breath; R05 Cough; R09.89 Other specified symptoms and signs involving the circulatory and respiratory systems
CPT/HCPCS: 36415; 36600; 71046; 80053; 82803; 83605; 85025; 87502; 94640; 99283; A9270-GY; J7512

== ENCOUNTER 2017-11-02 14:57 | Inpatient (IN) | payer OTHER ==
[2017-11-02] MEDS ORDERED: methylPREDNISolone 125 MG* 2 ML VIAL IV ONE (15:19)
[2017-11-02] MEDS ORDERED: cefTRIAXone(*) 1 GM in NS 0.9% 50 ML* 50 ML IVPB ONE (15:19)
[2017-11-02] MEDS ORDERED: Albuterol/Ipratropium NEB.SOL* Albuterol 2.5 MG/Ipratropium 0.5 MG 3 ML INH ONE (15:19)
[2017-11-02] MEDS ORDERED: cefTRIAXone(*) 1 GM ADVAN/BAG ONE (15:23)
[2017-11-02 15:29] LABS: ABS Basophils 0.1 10^3/ul (0-0.2); ABS Eosinophils 0.1 10^3/ul (0-0.6); ABS Lymphocytes 1.7 10^3/ul (1.0-4.8); ABS Monocytes 0.8 10^3/ul (0-0.8); ABS Neutrophils 5.6 10^3/ul (1.5-7.7); ABS Nucleated RBC 0 10^3/ul; Eosinophil % 1.3 % (0-6); Hematocrit 30 % (42-52); Hemoglobin 10.1 g/dl (14.0-18.0); Lymphocyte % 20.6 % (25-47); Mean Corpuscular HGB Conc 34 g/dl (31-36); Mean Corpuscular Hemoglobin 27 pg (27-31); Mean Corpuscular Volume 80 fL (80-94); Mean Platelet Volume 7.9 um3 (7.4-10.4); Nucleated Red Blood Cells % 0.1; Platelet Count 238 10^3/ul (150-450); Red Blood Count 3.76 10^6/ul (4.0-5.4); Red Cell Distribution Width 14 % (10.5-15); White Blood Count 8.3 10^3/ul (3.5-10.8)
[2017-11-02 15:39] LABS: INR 0.94 (0.77-1.02)
[2017-11-02 15:44] LABS: EGFR Non-African American 19.9 (>60)
--- NOTE | 2017-11-02 16:25 | RAD ---
Indication: Shortness of breath. Single frontal view of the chest performed at 1610 hours was reviewed. Comparison is made with previous exam dated October 30, 2017. No mediastinal shift is noted. Heart is of normal size and configuration. Lung sanchez appear clear. IMPRESSION: NO ACTIVE CARDIOPULMONARY DISEASE IS NOTED.
--- NOTE | 2017-11-02 17:52 | ED ---
Benson Reyes Thomas, scribed for Jt Haskins MD on 11/02/17 at 1521 . Shortness of Breath - HPI Summary HPI Summary: The patient is a 61 year old male complaining of shortness of breath for the last 1-2 weeks that has worsened in the last few days. The shortness of breath is aggravated by lying supine and exertion. The patient complains of a mildly productive cough and bilateral pedal edema. He [place] [facility] [place], after which he was put on antibiotics and steroids. The patient denies fevers and chills. - History of Current Complaint Chief Complaint: EDShortnessOfBreath Time Seen by Provider: 11/02/17 15:03 Hx Obtained From: Patient Onset/Duration: Lasting Weeks - 1-2, Still Present, Worse Since Timing: Constant Aggrevating Factors: Recumbent Position, Other - Exertion Alleviating Factors: Other - He is on steroids and abx Associated Signs & Symptoms: Cough (Productive) - mildly - Allergy/Home Medications Allergies/Adverse Reactions: Allergies Allergy/AdvReac Type Severity Reaction Status Date / Time lisinopril Allergy Difficulty Verified 11/02/17 15:00 Breathing niacin Allergy Rash Verified 11/02/17 15:00 PMH/Surg Hx/FS Hx/Imm Hx Endocrine/Hematology History: Reports: Hx Diabetes - TYPE 2 / ON ORAL MEDS Denies: Hx Thyroid Disease Cardiovascular History: Reports: Hx Angina, Hx Hypercholesterolemia, Hx Hypertension, Other Cardiovascular Problems/Disorders - GOUT Denies: Hx Coronary Artery Disease, Hx Myocardial Infarction, Hx Pacemaker/ ICD, Hx Valvular Heart Disease Respiratory History: Reports: Hx Pneumonia Denies: Hx Asthma, Hx Chronic Obstructive Pulmonary Disease (COPD), Other Respiratory Problems/Disorders GI History: Denies: Hx Ulcer Musculoskeletal History: Reports: Hx Gout, Other Musculoskeletal History - HIP PAIN Denies: Hx Arthritis, Hx Osteoporosis, Hx Scoliosis Sensory History: Reports: Hx Contacts or Glasses Denies: Hx Hearing Aid Opthamlomology History: Reports: Hx Contacts or Glasses Neurological History: Reports: Hx Headaches Denies: Other Neuro Impairments/Disorders Psychiatric History: Reports: Hx Anxiety, Hx Panic Disorder - Surgical History Surgery Procedure, Year, and Place: POLYPS REMOVED INTESTINE. APPENDECTOMY. KNEE SURGERY 1998 Hx Anesthesia Reactions: No Infectious Disease History: No Infectious Disease History: Denies: Hx Clostridium Difficile, Hx Hepatitis, Hx Human Immunodeficiency Virus (HIV), Hx of Known/Suspected MRSA, Hx Shingles, Hx Tuberculosis, Hx Known/ Suspected VRE, Hx Known/Suspected VRSA, History Other Infectious Disease, Traveled Outside the [place] in Last 30 Days - Family History Known Family History: Positive: Cardiac Disease, Hypertension, Other - father - asthma, emphysema - Social History Alcohol Use: None Alcohol Amount: quit Hx Substance Use: No Substance Use Type: Reports: None Hx Tobacco Use: No Smoking Status (MU): Never Smoked Tobacco Review of Systems Negative: Fever, Chills Positive: Shortness Of Breath, Cough Positive: Edema All Other Systems Reviewed And Are Negative: Yes Physical Exam - Summary Physical Exam Summary: General: well-appearing, no pain distress, mild to moderate respiratory distress Skin: warm, color reflects adequate perfusion, dry Head: normal Eyes: EOMI, ANDERS ENT: normal Neck: supple, nontender Respiratory: He has wheezes bilaterally. He has mild to moderate respiratory distress. Cardiovascular: RRR Abdomen: soft, nontender Bowel: present Musculoskeletal: Strength/ROM intact. There is bilateral pedal edema. Neurological: normal, sensory/motor intact, A&O x3 Psychological: affect/mood appropriate Triage Information Reviewed: Yes Vital Signs On Initial Exam: Initial Vitals Temp Pulse Resp BP Pulse Ox 97.6 F 66 22 121/55 95 11/02/17 15:01 11/02/17 15:01 11/02/17 15:01 11/02/17 15:01 11/02/17 15:01 Vital Signs Reviewed: Yes Diagnostics - Vital Signs Vital Signs Temp Pulse Resp BP Pulse Ox 11/02/17 15:09 64 26 125/65 94 11/02/17 15:08 65 15 95 11/02/17 15:01 97.6 F 66 22 121/55 95 - Laboratory Lab Results: Lab Results 11/02/17 11/02/17 11/02/17 Range/Units 15:15 15:15 15:15 WBC (3.5-10.8) 10^3/ul RBC (4.0-5.4) 10^6/ul Hgb (14.0-18.0) g/dl Hct (42-52) % MCV (80-94) fL MCH (27-31) pg MCHC (31-36) g/dl RDW (10.5-15) % Plt Count (150-450) 10^3/ul MPV (7.4-10.4) um3 Neut % (Auto) (38-83) % Lymph % (Auto) (25-47) % [place] % (Auto) (0-7) % Eos % (Auto) (0-6) % Baso % (Auto) (0-2) % Absolute Neuts (auto) (1.5-7.7) 10^3/ul Absolute Lymphs (auto) (1.0-4.8) 10^3/ul Absolute Monos (auto) (0-0.8) 10^3/ul Absolute Eos (auto) (0-0.6) 10^3/ul Absolute Basos (auto) (0-0.2) 10^3/ul Absolute Nucleated RBC 10^3/ul Nucleated RBC % INR (Anticoag Therapy) 0.94 (0.77-1.02) APTT 26.8 (26.0-36.3) seconds VBG pH (7.33-7.43) VBG pCO2 (41-51) mmHg VBG pO2 (35-45) mmHg VBG HCO3 (24-28) mmol/L VBG O2 Saturation (70-80) % VBG Base Excess (0-4) Sodium 133 L (139-145) mmol/L Potassium 3.7 (3.5-5.0) mmol/L Chloride 101 (101-111) mmol/L Carbon Dioxide 21 L (22-32) mmol/L Anion Gap 11 (2-11) mmol/L BUN 63 H (6-24) mg/dL Creatinine 3.20 H (0.67-1.17) mg/dL Est GFR ( Amer) 25.6 (>60) Est GFR (Non-Af Amer) 19.9 (>60) BUN/Creatinine Ratio 19.7 (8-20) Glucose 181 H (70-100) mg/dL Lactic Acid 1.4 (0.5-2.0) mmol/L Calcium 8.5 L (8.6-10.3) mg/dL Magnesium 2.2 (1.9-2.7) mg/dL Total Bilirubin 0.20 (0.2-1.0) mg/dL AST 12 L (13-39) U/L ALT 18 (7-52) U/L Alkaline Phosphatase 39 (34-104) U/L Total Creatine Kinase 136 (10-223) U/L CK-MB (CK-2) 3.2 (0.6-6.3) ng/mL Troponin I 0.01 (<0.04) ng/mL C-Reactive Protein 2.57 (< 5.00) mg/L B-Natriuretic Peptide ( - 100) pg/mL Total Protein 7.4 (6.4-8.9) g/dL Albumin 3.6 (3.2-5.2) g/dL Globulin 3.8 (2-4) g/dL Albumin/Globulin Ratio 0.9 L (1-3) Lipase 51 (11.0-82.0) U/L TSH 0.94 (0.34-5.60) mcIU/mL 11/02/17 11/02/17 11/02/17 Range/Units 15:15 15:15 15:46 WBC 8.3 (3.5-10.8) 10^3/ul RBC 3.76 L (4.0-5.4) 10^6/ul Hgb 10.1 L (14.0-18.0) g/dl Hct 30 L (42-52) % MCV 80 (80-94) fL MCH 27 (27-31) pg MCHC 34 (31-36) g/dl RDW 14 (10.5-15) % Plt Count 238 (150-450) 10^3/ul MPV 7.9 (7.4-10.4) um3 Neut % (Auto) 67.9 (38-83) % Lymph % (Auto) 20.6 L (25-47) % [place] % (Auto) 9.2 H (0-7) % Eos % (Auto) 1.3 (0-6) % Baso % (Auto) 1.0 (0-2) % Absolute Neuts (auto) 5.6 (1.5-7.7) 10^3/ul Absolute Lymphs (auto) 1.7 (1.0-4.8) 10^3/ul Absolute Monos (auto) 0.8 (0-0.8) 10^3/ul Absolute Eos (auto) 0.1 (0-0.6) 10^3/ul Absolute Basos (auto) 0.1 (0-0.2) 10^3/ul Absolute Nucleated RBC 0 10^3/ul Nucleated RBC % 0.1 INR (Anticoag Therapy) (0.77-1.02) APTT (26.0-36.3) seconds VBG pH 7.36 (7.33-7.43) VBG pCO2 36 L (41-51) mmHg VBG pO2 53 H (35-45) mmHg VBG HCO3 21.2 L (24-28) mmol/L VBG O2 Saturation 91.8 H (70-80) % VBG Base Excess -4.6 L (0-4) Sodium (139-145) mmol/L Potassium (3.5-5.0) mmol/L Chloride (101-111) mmol/L Carbon Dioxide (22-32) mmol/L Anion Gap (2-11) mmol/L BUN (6-24) mg/dL Creatinine (0.67-1.17) mg/dL Est GFR ( Amer) (>60) Est GFR (Non-Af Amer) (>60) BUN/Creatinine Ratio (8-20) Glucose (70-100) mg/dL Lactic Acid (0.5-2.0) mmol/L Calcium (8.6-10.3) mg/dL Magnesium (1.9-2.7) mg/dL Total Bilirubin (0.2-1.0) mg/dL AST (13-39) U/L ALT (7-52) U/L Alkaline Phosphatase (34-104) U/L Total Creatine Kinase (10-223) U/L CK-MB (CK-2) (0.6-6.3) ng/mL Troponin I (<0.04) ng/mL C-Reactive Protein (< 5.00) mg/L B-Natriuretic Peptide 401 H ( - 100) pg/mL Total Protein (6.4-8.9) g/dL Albumin (3.2-5.2) g/dL Globulin (2-4) g/dL Albumin/Globulin Ratio (1-3) Lipase (11.0-82.0) U/L TSH (0.34-5.60) mcIU/mL Result Diagrams: 11/02/17 15:15 11/02/17 15:15 Lab Statement: Any lab studies that have been ordered have been reviewed, and results considered in the medical decision making process. - Radiology CXR Xray Interpretation: No Acute Changes - Impression: No active cardiopulmonary disease is noted. Dr. Haskins has reviewed this report. Radiology Interpretation Completed By: Radiologist - EKG 15:45 Cardiac Rate: NL EKG Rhythm: Sinus Rhythm - at 64 BPM Ectopy: None EKG Interpretation: Minimal ST elevations in anterior leads. Course/Dx - Course Course Of Treatment: IMPROVED IN ED AFTER DUONEB AND SOLUMEDROL. ADMIT HOSPITALIST. Assessment/Plan: Medications reviewed. - Diagnoses Provider Diagnoses: COPD (chronic obstructive pulmonary disease), Dyspnea, Bronchitis, Edema of both legs - Physician Notifications Discussed Care of Patient With: Miller Thurman Time Discussed With Above Provider: 17:08 Instructed by Provider To: Admit As Inpatient Discharge - Sign-Out/Discharge Documenting (check all that apply): Discharge - Patient admitted by Dr. Thurman - Discharge Plan Condition: Stable Disposition: ADMITTED TO [facility] Referrals: Daiana Bautista [Primary Care Provider] - - Billing Disposition and Condition Condition: STABLE [place] [place] The documentation as recorded by the Benson gifford Thomas accurately reflects the service I personally performed and the decisions made by , Jt Haskins MD.
[2017-11-02] MEDS ORDERED: NS 0.9% 1000 ML* 1,000 ML IV SCH (19:15)
--- NOTE | 2017-11-02 22:19 | HP ---
HISTORY AND PHYSICAL: DATE OF ADMISSION: 11/02/17 PROVIDER: Sarmad Costa NP ATTENDING PHYSICIAN: Dr. Ramsey* (report dictated by Sarmad Costa NP). PRIMARY CARE PROVIDER: Daiana Bautista NP, [facility]. CHIEF COMPLAINT: Shortness of breath. HISTORY OF PRESENT ILLNESS: Mr. Carrillo is a 61-year-old male with a past medical history of hypertension, hyperlipidemia, type 2 diabetes, chronic kidney disease, and history of anasarca secondary to nephrotic syndrome secondary to chronic kidney disease, who presents to the emergency department today with report of shortness of breath and cough and wheezing. The patient was seen by his primary care provider this week and was given a prescription for antibiotics for possible pneumonia. He then presented to the emergency department on 10/30/17 for shortness of breath, cough, and was diagnosed with COPD exacerbation, possible pneumonia and was discharged home on azithromycin and prednisone. The patient reports that for the past couple of days, he has continued to have cough and shortness of breath and wheezing reporting today. He became short of breath, he became dizzy and thought he was going to pass out. He came to the emergency department for further evaluation. I also note that he was seen on 10/10/17 in the ER for possible CHF and on 10/12/17 again for shortness of breath, which was thought to be secondary to anxiety per the ER provider's notes. In the emergency department, the patient was given 125 mg of IV Solu-Medrol and ceftriaxone. He has no noted leukocytosis and he is oxygenating well on room air. He does have significant wheezing and loud cough. The patient reports that he has had occasional sputum production. He denies any fevers or chills. He reports p.o. intake reporting he has not been eating or drinking much. He denies abdominal pain, difficulty urinating and no diarrhea or constipation. He reports some lower extremity swelling at his baseline and denies that this is any worse. Denies orthopnea. He denies a history of tobacco abuse and denies ever being diagnosed with asthma or COPD in the past. PAST MEDICAL HISTORY: 1. Hypertension. 2. Hyperlipidemia. 3. Type 2 diabetes. 4. Anxiety. 5. Gout. 6. History of chronic kidney disease stage 3. 7. History of anasarca secondary to nephrotic syndrome secondary to chronic kidney disease, is followed by Dr. Will. 8. Possible congestive heart failure. 9. Diabetic neuropathy. 10. Diabetic gastroparesis. PAST SURGICAL HISTORY: 1. Knee surgery. 2. Appendectomy. CURRENT MEDICATIONS: 1. Prednisone 20 mg p.o. daily. 2. Norvasc 10 mg p.o. daily. 3. Metoprolol succinate XL 125 mg p.o. daily. 4. Zaroxolyn 5 mg p.o. daily. 5. Cozaar 25 mg p.o. daily. 6. Synthroid 125 mcg p.o. daily. 7. Isosorbide mononitrate ER 30 mg p.o. daily. 8. Lasix 20 mg p.o. daily. 9. Vitamin D 3000 units p.o. daily. 10. Calcitriol 0.25 mcg p.o. daily. 11. Azithromycin 250 mg p.o. daily. 12. Aspirin 81 mg p.o. daily. 13. Albuterol HFA inhaler 1 to 2 puffs INH q. 4 hours p.r.n. ALLERGIES: LISINOPRIL, NIACIN. FAMILY HISTORY: Reviewed and noncontributory. SOCIAL HISTORY: The patient denies tobacco abuse. Rare alcohol use. He is on disability. He lives alone and has 4 children. His son, Tone Carrillo is his health care proxy. REVIEW OF SYSTEMS: A 14-point review of systems was performed. All the positives and negatives are mentioned in the history of present illness. Otherwise negative. PHYSICAL EXAMINATION GENERAL APPEARANCE: Chronically ill, obese male, sitting up in the emergency department stretcher, alert and oriented x3, in no acute distress. VITAL SIGNS: Temperature 97.6, heart rate 67, respirations 21, O2 sat 95% on room air, blood pressure 143/73. HEENT: Head is normocephalic, atraumatic. Pupils are equal and reactive to light. Oropharynx is clear. Moist mucous membranes. Poor dentition. NECK: Supple. LUNGS: Bilateral expiratory and inspiratory wheezing. Mild coarse rhonchi throughout. CARDIAC: S1, S2. Regular rate and rhythm. No murmur, rub, or gallop appreciated. ABDOMEN: Obese, soft, nontender, nondistended, bowel sounds throughout. EXTREMITIES: No clubbing or cyanosis is noted. 1 to 2+ lower extremity edema noted bilaterally. NEURO: Alert and oriented x3. Cranial nerves II through XII are grossly intact. ASSESSMENT AND PLAN: Mr. Carrillo is a 61-year-old male with a past medical history of hypertension, hyperlipidemia, type 2 diabetes, chronic kidney disease , congestive heart failure, history of nephrotic syndrome who presents to the emergency department today with report of 7 to 10 days of cough, runny nose, shortness of breath and wheezing and diagnosed with pneumonia earlier this week and started on azithromycin and prednisone who had worsening shortness of breath and presents to the emergency department today. 1. Chronic obstructive pulmonary disease exacerbation. The patient was given a dose of ceftriaxone in the emergency department. He will be continued on ceftriaxone 1 g q. 24 hours. He received Solu-Medrol 125 mg IV in the ER. We will continue him on 40 mg IV q. 8 hours. He is oxygenating well on room air. It is unclear if he has accompanied pneumonia but my suspicion is that this was viral illness, which developed into the chronic obstructive pulmonary disease exacerbation. He denies any history of tobacco abuse or asthma in the past, unable to identify a history of exposures. It appears that he has some reactive airway disease from his viral illness. I do feel that he would benefit to see Dr. Oviedo, cracker sprayer as an outpatient. We will continue DuoNeb. Obtain sputum culture. The patient's chest x-ray impression reads "no active cardiopulmonary disease is noted." 2. Chronic kidney disease. The creatinine appears to be a little bit above his baseline, most likely secondary to poor p.o. intake. He is also on diuretics. Plan to hold diuretics. He was not given any IV fluids in the emergency department. Plan to give him 1 L as he does appear to be dry. Recheck creatinine in the morning. 3. Hypertension, controlled. Continue amlodipine, isosorbide mononitrate, losartan. 4. Hypothyroidism. Continue Synthroid 25 mcg p.o. daily. 5. Congestive heart failure? I did see the patient has congested heart failure listed on his medical record and he is on Lasix and Zaroxolyn. He does have a history of anasarca secondary to his renal function. It is unclear though as to why he is on these diuretics. May need to obtain records from his PCP or discuss with Dr. Will. 6. Type 2 diabetes. Fingerstick blood glucose a.c. and h.s., lispro sliding scale. 7. DVT prophylaxis. Heparin subcu. 8. Code status. Full code. 9. Inpatient to medical unit. TIME SPENT: Approximately 60 minutes was spent on this admission. SARMAD COSTA, BENCH CARPENTER [id number]/CPS #: [id number] MAG
[2017-11-02] MEDS: Heparin VIAL(*) 5000 UNITS/ML VIAL (FIVE THOUSAND) SUBCUT SCH (22:22)
[2017-11-02] MEDS: methylPREDNISolone SOD 40 MG* 1 ML VIAL IV SCH (22:22)
[2017-11-02] MEDS: Albuterol/Ipratropium NEB.SOL* Albuterol 2.5 MG/Ipratropium 0.5 MG 3 ML INH PRN (23:10)
[2017-11-03] MEDS: Albuterol/Ipratropium NEB.SOL* Albuterol 2.5 MG/Ipratropium 0.5 MG 3 ML INH PRN (03:33)
[2017-11-03 04:24] LABS: Urine Appearance Clear; Urine Blood Negative (Negative); Urine Color Yellow; Urine Ketones Negative (Negative); Urine Protein 3+(>=500 mg/dL) (Negative); Urine Specific Gravity 1.015 (1.010-1.030); Urine Urobilinogen Negative (Negative)
[2017-11-03] MEDS: methylPREDNISolone SOD 40 MG* 1 ML VIAL IV SCH ×2 (05:29→13:31)
[2017-11-03] MEDS: Levothyroxine TAB* 25 MCG TAB PO SCH (05:29)
[2017-11-03] MEDS: Heparin VIAL(*) 5000 UNITS/ML VIAL (FIVE THOUSAND) SUBCUT SCH ×3 (05:29→21:42)
[2017-11-03 06:05] LABS: ABS Basophils 0 10^3/ul (0-0.2); ABS Eosinophils 0 10^3/ul (0-0.6); ABS Lymphocytes 0.6 10^3/ul (1.0-4.8); ABS Monocytes 0.1 10^3/ul (0-0.8); ABS Neutrophils 5.9 10^3/ul (1.5-7.7); ABS Nucleated RBC 0 10^3/ul; Eosinophil % 0 % (0-6); Hematocrit 29 % (42-52); Hemoglobin 9.7 g/dl (14.0-18.0); Lymphocyte % 8.9 % (25-47); Mean Corpuscular HGB Conc 34 g/dl (31-36); Mean Corpuscular Hemoglobin 27 pg (27-31); Mean Corpuscular Volume 80 fL (80-94); Mean Platelet Volume 8.3 um3 (7.4-10.4); Nucleated Red Blood Cells % 0; Platelet Count 219 10^3/ul (150-450); Red Blood Count 3.62 10^6/ul (4.0-5.4); Red Cell Distribution Width 15 % (10.5-15); White Blood Count 6.5 10^3/ul (3.5-10.8)
[2017-11-03 06:27] LABS: EGFR Non-African American 21.6 (>60)
[2017-11-03] MEDS ORDERED: Dextrose 50% Syringe 50 ML* 25 GM/50 ML SYRINGE IV PUSH PRN (07:31)
[2017-11-03] MEDS: Metoprolol Succinate XL TAB* 50 MG PO SCH (08:13)
[2017-11-03] MEDS: Aspirin EC TAB* 81 MG TAB.EC PO SCH (08:13)
[2017-11-03] MEDS: Isosorbide Mononitrate ER TAB* 30 MG PO SCH (08:14)
[2017-11-03] MEDS: Losartan TAB* 25 MG PO SCH (08:14)
[2017-11-03] MEDS: amLODIPine TAB* 5 MG PO SCH (08:14)
[2017-11-03] MEDS: Cholecalciferol TAB* 1000 UNITS PO SCH (08:15)
[2017-11-03] MEDS ORDERED: Calcitriol CAP* 0.25 MCG PO SCH (09:00)
[2017-11-03] MEDS ORDERED: Insulin LISPRO* 1 UNITS UNIT SUBCUT ONE (09:33)
[2017-11-03] MEDS: Insulin LISPRO* 1 UNITS UNIT SUBCUT SCH ×4 (09:36→21:41)
[2017-11-03] MEDS ORDERED: Furosemide IV* 10 MG/ML 2 ML VIAL (20 MG) IV SLOW PU ONE (10:28)
[2017-11-03] MEDS: Albuterol/Ipratropium NEB.SOL* Albuterol 2.5 MG/Ipratropium 0.5 MG 3 ML INH SCH ×4 (11:01→23:16)
[2017-11-03] MEDS ORDERED: cefTRIAXone(*) 1 GM in NS 0.9% 50 ML* 50 ML IVPB SCH (15:00)
--- NOTE | 2017-11-03 16:19 | PN ---
Subjective Date of Service: 11/03/17 Interval History: Patient states his is still significantly short of breath, much worse with exertion, worsened from baseline. Patient has an infrequent cough which brings up white sputum. Patient denies F/C, N/V, abdominal pain, diarrhea, constipation , or other pain. Patient states that he has been having some leg swelling and has not been weighing himself at home. Family History: Unchanged from Admission Social History: Unchanged from Admission Past Medical History: Unchanged from Admission Objective Active Medications: Albuterol/Ipratropium (Duoneb (Albuterol 2.5 Mg/Ipratropium 0.5 Mg)) 1 neb INH [id number] AWAKE [facility] Last Admin: 11/03/17 14:51 Dose: 1 neb Amlodipine Besylate (Norvasc Tab*) 10 mg PO DAILY [facility] Last Admin: 11/03/17 08:14 Dose: 10 mg Aspirin (Aspirin Ec Tab*) 81 mg PO DAILY [facility] Last Admin: 11/03/17 08:13 Dose: 81 mg Cholecalciferol (Vitamin D Tab*) 3,000 units PO DAILY [facility] Last Admin: 11/03/17 08:15 Dose: 3,000 units Dextrose (D50w Syringe 50 Ml*) 12.5 gm IV PUSH .FOR FS < 60 - SS PRN PRN Reason: FS < 60 Furosemide (Lasix Tab*) 40 mg PO DAILY [facility] Heparin Sodium (Porcine) (Heparin Vial(*)) 5,000 units SUBCUT Q8HR [facility] Last Admin: 11/03/17 13:29 Dose: 5,000 units Doxycycline Hyclate 100 mg/ (Sodium Chloride) 250 mls @ 250 mls/hr IVPB Q12H [facility] Insulin Human Lispro (Humalog*) 0 units SUBCUT ACHS [facility] PRN Reason: Protocol Last Admin: 11/03/17 12:30 Dose: 9 units Isosorbide Mononitrate (Imdur Er Tab*) 30 mg PO DAILY [facility] Last Admin: 11/03/17 08:14 Dose: 30 mg Levothyroxine Sodium (Synthroid Tab*) 25 mcg PO 0600 [facility] Last Admin: 11/03/17 05:29 Dose: 25 mcg Losartan Potassium (Cozaar Tab*) 25 mg PO DAILY [facility] Last Admin: 11/03/17 08:14 Dose: 25 mg Metolazone (Zaroxolyn Tab*) 5 mg PO DAILY@0830 [facility] Metoprolol Succinate (Toprol Xl Tab*) 125 mg PO DAILY [facility] Last Admin: 11/03/17 08:13 Dose: 125 mg Prednisone (Deltasone Tab*) 50 mg PO DAILY [facility] Vital Signs - 8 hr 11/03/17 11/03/17 11/03/17 10:58 11:02 14:57 Temperature 97.7 F Pulse Rate 72 78 72 Respiratory 18 16 17 Rate Blood Pressure 130/51 (mmHg) O2 Sat by Pulse 98 98 97 Oximetry 11/03/17 15:25 Temperature 97.6 F Pulse Rate 81 Respiratory 22 Rate Blood Pressure 152/64 (mmHg) O2 Sat by Pulse 98 Oximetry Oxygen Devices in Use Now: None Appearance: Patient is a 61yo male who appears stated age and is sitting in the bed with increased WOB. Eyes: No Scleral Icterus, PERRLA Ears/Nose/Mouth/Throat: NL Teeth, Lips, Gums, Clear Oropharnyx, Mucous Membranes Moist Neck: NL Appearance and Movements; NL JVP, Trachea Midline Respiratory: Symmetrical Chest Expansion and Respiratory Effort, - - Wheezes and rhonchi throughout. Cardiovascular: NL Sounds; No Murmurs; No JVD, RRR, - - 1+ edema in B/L LE. Abdominal: NL Sounds; No Tenderness; No Distention, No Hepatosplenomegaly Lymphatic: No Cervical Adenopathy Extremities: No Clubbing, Cyanosis Skin: No Rash or Ulcers, No Nodules or Sclerosis Neurological: Alert and Oriented x 3, NL Sensation, NL Muscle Strength and Tone , - - CN II-XII intact. Result Diagrams: 11/03/17 05:28 11/03/17 05:28 Additional Lab and Data: Lab Results Microbiology and Other Data: Microbiology 11/03/17 15:35 Influenza Types A,B Antigen (RASHEED) - Final Nasal Specimen received for Influenza A/B Molecular testing Assess/Plan/Problems-Billing Assessment: Patient is a 61yo male with a PMH for Nephrotic syndrome with CKD III, CHF, HTN , DMII, HLD who presents with wheezing and cough for over a week and is being treated with steroids, antibiotics, inhalers for bronchitis and is being diuresed for fluid overload. - Patient Problems (1) Bronchitis Current Visit: Yes Status: Acute Code(s): J40 - BRONCHITIS, NOT SPECIFIED ACUTE OR CHRONIC SNOMED Code(s): 16946998 Comment: Patient is wheezing significantly. No history of obstructive lung disease. No infiltrate on exam. Likely bronchitis, continue steroids, inhalers, and antibiotics for anti-inflammatory properties. (2) (HFpEF) heart failure with preserved ejection fraction Current Visit: Yes Status: Acute Code(s): I50.30 - UNSPECIFIED DIASTOLIC ( CONGESTIVE) HEART FAILURE SNOMED Code(s): 85020933 Comment: Patient's weight is increased 10 pounds since August, likely a component of fluid overload contributing to SOB. Resume home diuretics. Monitor renal function closely. (3) CKD stage 3 due to type 2 diabetes mellitus Current Visit: No Status: Acute Code(s): E11.22 - TYPE 2 DIABETES MELLITUS W DIABETIC CHRONIC KIDNEY DISEASE; N18.3 - CHRONIC KIDNEY DISEASE, STAGE 3 ( MODERATE) SNOMED Code(s): 683763724296 Comment: Cret increased from baseline and better with fluids but patient has increased weight 10 pounds since August dry weight. Resume home diuretics and monitor closely. (4) Diabetes Current Visit: No Status: Chronic Code(s): E11.9 - TYPE 2 DIABETES MELLITUS WITHOUT COMPLICATIONS SNOMED Code(s): 20638419 Comment: SSI, Blood Glucose only moderately well controlled likely due to steroids. (5) HLD (hyperlipidemia) Current Visit: No Status: Chronic Code(s): E78.5 - HYPERLIPIDEMIA, UNSPECIFIED SNOMED Code(s): 23450551 Comment: Continue atorvastatin. (6) HTN (hypertension) Current Visit: No Status: Chronic Code(s): I10 - ESSENTIAL (PRIMARY) HYPERTENSION SNOMED Code(s): 81575867 Comment: SBP controlled. cont metoprolol, amlodipine, Imdur, losartan, diuretics. (7) DVT prophylaxis Current Visit: No Status: Acute Priority: Medium Code(s): VRX5432 - SNOMED Code(s): 977824588 Comment: - SQ heparin. (8) Full code status Current Visit: No Status: Acute Code(s): Z78.9 - OTHER SPECIFIED HEALTH STATUS SNOMED Code(s): 901043988 Status and Disposition: Admitted inpatient.
[2017-11-03] MEDS: DOXYcycline IV* 100 MG in NS 0.9% 250 ML* 250 ML IVPB SCH (17:13)
[2017-11-04] MEDS ORDERED: Acetaminophen TAB* 325 MG PO PRN (00:32)
[2017-11-04] MEDS: traMADol TAB* 50 MG PO PRN ×3 (03:18→23:21)
[2017-11-04] MEDS: DOXYcycline IV* 100 MG in NS 0.9% 250 ML* 250 ML IVPB SCH ×2 (04:22→17:06)
[2017-11-04] MEDS: Heparin VIAL(*) 5000 UNITS/ML VIAL (FIVE THOUSAND) SUBCUT SCH ×3 (05:35→21:05)
[2017-11-04] MEDS: Levothyroxine TAB* 25 MCG TAB PO SCH (05:35)
[2017-11-04 06:47] LABS: ABS Basophils 0 10^3/ul (0-0.2); ABS Eosinophils 0 10^3/ul (0-0.6); ABS Lymphocytes 0.7 10^3/ul (1.0-4.8); ABS Monocytes 0.5 10^3/ul (0-0.8); ABS Neutrophils 11.4 10^3/ul (1.5-7.7); ABS Nucleated RBC 0 10^3/ul; Eosinophil % 0 % (0-6); Hematocrit 30 % (42-52); Lymphocyte % 5.9 % (25-47); Mean Corpuscular HGB Conc 33 g/dl (31-36); Mean Corpuscular Hemoglobin 27 pg (27-31); Mean Corpuscular Volume 79 fL (80-94); Mean Platelet Volume 8.4 um3 (7.4-10.4); Nucleated Red Blood Cells % 0; Platelet Count 263 10^3/ul (150-450); Red Blood Count 3.76 10^6/ul (4.0-5.4); Red Cell Distribution Width 14 % (10.5-15); White Blood Count 12.7 10^3/ul (3.5-10.8)
[2017-11-04 07:05] LABS: EGFR Non-African American 23.5 (>60)
[2017-11-04] MEDS: Metolazone TAB* 5 MG PO SCH (07:36)
[2017-11-04] MEDS: Albuterol/Ipratropium NEB.SOL* Albuterol 2.5 MG/Ipratropium 0.5 MG 3 ML INH SCH ×3 (07:48→11:40)
[2017-11-04] MEDS: Metoprolol Succinate XL TAB* 50 MG PO SCH (09:13)
[2017-11-04] MEDS: Losartan TAB* 25 MG PO SCH (09:14)
[2017-11-04] MEDS: predniSONE TAB* 50 MG PO SCH (09:14)
[2017-11-04] MEDS: Furosemide TAB* 40 MG PO SCH (09:14)
[2017-11-04] MEDS: Isosorbide Mononitrate ER TAB* 30 MG PO SCH (09:14)
[2017-11-04] MEDS: amLODIPine TAB* 5 MG PO SCH (09:14)
[2017-11-04] MEDS: Aspirin EC TAB* 81 MG TAB.EC PO SCH (09:14)
[2017-11-04] MEDS: Insulin GLARGINE(*) 1 UNITS UNIT SUBCUT SCH (09:15)
[2017-11-04] MEDS: Cholecalciferol TAB* 1000 UNITS PO SCH (09:15)
[2017-11-04] MEDS: Insulin LISPRO* 1 UNITS UNIT SUBCUT SCH ×4 (09:16→21:05)
[2017-11-04] MEDS: Albuterol 2.5 MG/3 ML NEB.SOL* (0.083%) INH PRN ×4 (12:15→23:34)
--- NOTE | 2017-11-04 16:12 | PN ---
Subjective Date of Service: 11/04/17 Interval History: Patient has decreased SOB today but persistent wheezing and orthopnea. Increased urination after diuretics yesterday. Comparable swelling in legs to yesterday. Patient denied F/C, N/V, abdominal pain, Diarrhea, CP. Patient has persistent dry cough, Patient states that he has a pain in his side from coughing. Family History: Unchanged from Admission Social History: Unchanged from Admission Past Medical History: Unchanged from Admission Objective Active Medications: Acetaminophen (Tylenol Tab*) 650 mg PO Q6H PRN PRN Reason: FEVER/PAIN Albuterol (Ventolin 2.5 Mg/3 Ml Neb.Janessa*) 2.5 mg INH Q4H PRN PRN Reason: SOB/WHEEZING Last Admin: 11/04/17 12:15 Dose: 2.5 mg Amlodipine Besylate (Norvasc Tab*) 10 mg PO DAILY [facility] Last Admin: 11/04/17 09:14 Dose: 10 mg Aspirin (Aspirin Ec Tab*) 81 mg PO DAILY [facility] Last Admin: 11/04/17 09:14 Dose: 81 mg Cholecalciferol (Vitamin D Tab*) 3,000 units PO DAILY [facility] Last Admin: 11/04/17 09:15 Dose: 3,000 units Dextrose (D50w Syringe 50 Ml*) 12.5 gm IV PUSH .FOR FS < 60 - SS PRN PRN Reason: FS < 60 Furosemide (Lasix Tab*) 40 mg PO DAILY [facility] Last Admin: 11/04/17 09:14 Dose: 40 mg Heparin Sodium (Porcine) (Heparin Vial(*)) 5,000 units SUBCUT Q8HR [facility] Last Admin: 11/04/17 14:58 Dose: Not Given Doxycycline Hyclate 100 mg/ (Sodium Chloride) 250 mls @ 250 mls/hr IVPB Q12H [facility] Last Admin: 11/04/17 04:22 Dose: 250 mls/hr Insulin Glargine (Lantus(*)) 15 units SUBCUT Q24H [facility] Last Admin: 11/04/17 09:15 Dose: 15 unit Insulin Human Lispro (Humalog*) 0 units SUBCUT ACHS [facility] PRN Reason: Protocol Last Admin: 11/04/17 12:25 Dose: 9 units Isosorbide Mononitrate (Imdur Er Tab*) 30 mg PO DAILY [facility] Last Admin: 11/04/17 09:14 Dose: 30 mg Levothyroxine Sodium (Synthroid Tab*) 25 mcg PO 0600 [facility] Last Admin: 11/04/17 05:35 Dose: 25 mcg Losartan Potassium (Cozaar Tab*) 25 mg PO DAILY [facility] Last Admin: 11/04/17 09:14 Dose: 25 mg Metolazone (Zaroxolyn Tab*) 5 mg PO DAILY@0830 [facility] Last Admin: 11/04/17 07:36 Dose: 5 mg Metoprolol Succinate (Toprol Xl Tab*) 125 mg PO DAILY [facility] Last Admin: 11/04/17 09:13 Dose: 125 mg Prednisone (Deltasone Tab*) 50 mg PO DAILY [facility] Last Admin: 11/04/17 09:14 Dose: 50 mg Tramadol HCl (Ultram*) 50 mg PO Q6H PRN PRN Reason: PAIN Last Admin: 11/04/17 12:26 Dose: 50 mg Vital Signs - 8 hr 11/04/17 11/04/17 11/04/17 11:07 12:15 12:26 Temperature 97.6 F Pulse Rate 79 79 Respiratory 16 16 18 Rate Blood Pressure 160/67 (mmHg) O2 Sat by Pulse 96 96 Oximetry 11/04/17 11/04/17 14:58 15:56 Temperature 97.8 F Pulse Rate 71 Respiratory 18 18 Rate Blood Pressure 146/54 (mmHg) O2 Sat by Pulse 95 Oximetry Oxygen Devices in Use Now: None Appearance: Patient is a 62yo male who appears stated age and is sitting in the bed in [facility]. Eyes: No Scleral Icterus, PERRLA Ears/Nose/Mouth/Throat: NL Teeth, Lips, Gums, Clear Oropharnyx, Mucous Membranes Moist Neck: NL Appearance and Movements; NL JVP, Trachea Midline Respiratory: Symmetrical Chest Expansion and Respiratory Effort, - - Wheezes and Rhonchi throughout. Cardiovascular: NL Sounds; No Murmurs; No JVD, RRR, - - 2+ edema in B/L LE. Abdominal: NL Sounds; No Tenderness; No Distention, No Hepatosplenomegaly Lymphatic: No Cervical Adenopathy Extremities: No Edema, No Clubbing, Cyanosis Skin: No Rash or Ulcers, No Nodules or Sclerosis Neurological: Alert and Oriented x 3, NL Sensation, NL Muscle Strength and Tone , - - CN II-XII intact Result Diagrams: 11/04/17 06:19 11/04/17 06:19 Additional Lab and Data: Lab Results Microbiology and Other Data: Microbiology 11/03/17 15:35 Influenza Types A,B Antigen (RASHEED) - Final Nasal Specimen received for Influenza A/B Molecular testing Assess/Plan/Problems-Billing Assessment: Patient is a 61yo male with a PMH for Nephrotic syndrome with CKD III, CHF, HTN , DMII, HLD who presents with wheezing and cough for over a week and is being treated with steroids, antibiotics, inhalers for bronchitis and is being diuresed for fluid overload. - Patient Problems (1) Bronchitis Current Visit: Yes Status: Acute Code(s): J40 - BRONCHITIS, NOT SPECIFIED ACUTE OR CHRONIC SNOMED Code(s): 09077832 Comment: Patient is wheezing significantly. No history of obstructive lung disease. No infiltrate on exam. Likely bronchitis, continue steroids, inhalers, and antibiotics for anti-inflammatory properties. Slightly increased form yesterday. (2) (HFpEF) heart failure with preserved ejection fraction Current Visit: Yes Status: Acute Code(s): I50.30 - UNSPECIFIED DIASTOLIC ( CONGESTIVE) HEART FAILURE SNOMED Code(s): 84929537 Comment: Patient's weight is increased 10 pounds since August and then 4 more pounds since yesterday despite subjective diuresis. Likely a component of fluid overload contributing to SOB. Resume home diuretics. Monitor renal function closely. Wrap legs and keep elevated. (3) CKD stage 3 due to type 2 diabetes mellitus Current Visit: No Status: Acute Code(s): E11.22 - TYPE 2 DIABETES MELLITUS W DIABETIC CHRONIC KIDNEY DISEASE; N18.3 - CHRONIC KIDNEY DISEASE, STAGE 3 ( MODERATE) SNOMED Code(s): 340433371126 Comment: Cret increased from baseline and better with fluids but patient has increased weight 10 pounds since August dry weight. Resume home diuretics and monitor closely. (4) Diabetes Current Visit: No Status: Chronic Code(s): E11.9 - TYPE 2 DIABETES MELLITUS WITHOUT COMPLICATIONS SNOMED Code(s): 17117167 Comment: SSI and basal coverage. Blood Glucose only moderately well controlled likely due to steroids. (5) HLD (hyperlipidemia) Current Visit: No Status: Chronic Code(s): E78.5 - HYPERLIPIDEMIA, UNSPECIFIED SNOMED Code(s): 42180491 Comment: Continue atorvastatin. (6) HTN (hypertension) Current Visit: No Status: Chronic Code(s): I10 - ESSENTIAL (PRIMARY) HYPERTENSION SNOMED Code(s): 54965014 Comment: SBP controlled. cont metoprolol, amlodipine, Imdur, losartan, diuretics. (7) DVT prophylaxis Current Visit: No Status: Acute Priority: Medium Code(s): SLH4887 - SNOMED Code(s): 144996182 Comment: - SQ heparin. (8) Full code status Current Visit: No Status: Acute Code(s): Z78.9 - OTHER SPECIFIED HEALTH STATUS SNOMED Code(s): 504969962 Status and Disposition: Admitted inpatient.
[2017-11-05] MEDS: DOXYcycline IV* 100 MG in NS 0.9% 250 ML* 250 ML IVPB SCH ×2 (05:33→17:11)
[2017-11-05] MEDS: Levothyroxine TAB* 25 MCG TAB PO SCH (05:43)
[2017-11-05] MEDS: Heparin VIAL(*) 5000 UNITS/ML VIAL (FIVE THOUSAND) SUBCUT SCH ×3 (05:44→22:07)
[2017-11-05] MEDS: Albuterol 2.5 MG/3 ML NEB.SOL* (0.083%) INH PRN ×3 (05:46→22:06)
[2017-11-05] MEDS: Metoprolol Succinate XL TAB* 50 MG PO SCH (08:28)
[2017-11-05] MEDS: Metolazone TAB* 5 MG PO SCH (08:29)
[2017-11-05] MEDS: Cholecalciferol TAB* 1000 UNITS PO SCH (08:29)
[2017-11-05] MEDS: Losartan TAB* 25 MG PO SCH (08:29)
[2017-11-05] MEDS: Aspirin EC TAB* 81 MG TAB.EC PO SCH (08:30)
[2017-11-05] MEDS: predniSONE TAB* 50 MG PO SCH (08:30)
[2017-11-05] MEDS: amLODIPine TAB* 5 MG PO SCH (08:31)
[2017-11-05] MEDS: Furosemide TAB* 40 MG PO SCH (08:31)
[2017-11-05] MEDS: Isosorbide Mononitrate ER TAB* 30 MG PO SCH (08:31)
[2017-11-05] MEDS: Insulin GLARGINE(*) 1 UNITS UNIT SUBCUT SCH (08:32)
[2017-11-05] MEDS: Insulin LISPRO* 1 UNITS UNIT SUBCUT SCH ×4 (08:32→22:07)
[2017-11-05 08:44] LABS: ABS Basophils 0 10^3/ul (0-0.2); ABS Eosinophils 0 10^3/ul (0-0.6); ABS Lymphocytes 0.8 10^3/ul (1.0-4.8); ABS Monocytes 0.8 10^3/ul (0-0.8); ABS Neutrophils 11.3 10^3/ul (1.5-7.7); ABS Nucleated RBC 0 10^3/ul; Eosinophil % 0 % (0-6); Hematocrit 31 % (42-52); Hemoglobin 10.3 g/dl (14.0-18.0); Lymphocyte % 5.9 % (25-47); Mean Corpuscular HGB Conc 33 g/dl (31-36); Mean Corpuscular Hemoglobin 27 pg (27-31); Mean Corpuscular Volume 79 fL (80-94); Mean Platelet Volume 8.3 um3 (7.4-10.4); Nucleated Red Blood Cells % 0.1; Platelet Count 291 10^3/ul (150-450); Red Blood Count 3.88 10^6/ul (4.0-5.4); Red Cell Distribution Width 15 % (10.5-15); White Blood Count 12.9 10^3/ul (3.5-10.8)
[2017-11-05 09:20] LABS: EGFR Non-African American 23.9 (>60)
[2017-11-05] MEDS ORDERED: Furosemide IV* 10 MG/ML VIAL (40 MG) IV SLOW PU ONE (09:24)
[2017-11-05] MEDS: traMADol TAB* 50 MG PO PRN ×2 (10:23→22:07)
--- NOTE | 2017-11-05 11:41 | PN ---
Subjective Date of Service: 11/05/17 Interval History: Patient states his breathing is improved subjectively and that he is now able to lay flat when sleeping which was not previously possible. Patient states he has been urinating a lot. Denies F/C, N/V, CP, Abdominal pain, Dysuria, Rash, Dizziness, palpitations, or other pain. Patient states agreement with plan of care, but has not been compliant with keeping feet elevated and continues to gain weight. Family History: Unchanged from Admission Social History: Unchanged from Admission Past Medical History: Unchanged from Admission Objective Active Medications: Acetaminophen (Tylenol Tab*) 650 mg PO Q6H PRN PRN Reason: FEVER/PAIN Albuterol (Ventolin 2.5 Mg/3 Ml Neb.Janessa*) 2.5 mg INH Q4H PRN PRN Reason: SOB/WHEEZING Last Admin: 11/05/17 10:44 Dose: 2.5 mg Amlodipine Besylate (Norvasc Tab*) 10 mg PO DAILY [facility] Last Admin: 11/05/17 08:31 Dose: 10 mg Aspirin (Aspirin Ec Tab*) 81 mg PO DAILY [facility] Last Admin: 11/05/17 08:30 Dose: 81 mg Cholecalciferol (Vitamin D Tab*) 3,000 units PO DAILY [facility] Last Admin: 11/05/17 08:29 Dose: 3,000 units Dextrose (D50w Syringe 50 Ml*) 12.5 gm IV PUSH .FOR FS < 60 - SS PRN PRN Reason: FS < 60 Furosemide (Lasix Iv*) 20 mg IV SLOW PU BID [facility] Heparin Sodium (Porcine) (Heparin Vial(*)) 5,000 units SUBCUT Q8HR [facility] Last Admin: 11/05/17 05:44 Dose: 5,000 units Doxycycline Hyclate 100 mg/ (Sodium Chloride) 250 mls @ 250 mls/hr IVPB Q12H [facility] Last Admin: 11/05/17 05:33 Dose: 250 mls/hr Insulin Glargine (Lantus(*)) 15 units SUBCUT Q24H [facility] Last Admin: 11/05/17 08:32 Dose: 15 unit Insulin Human Lispro (Humalog*) 0 units SUBCUT ACHS [facility] PRN Reason: Protocol Last Admin: 11/05/17 08:32 Dose: 2 units Isosorbide Mononitrate (Imdur Er Tab*) 30 mg PO DAILY [facility] Last Admin: 11/05/17 08:31 Dose: 30 mg Levothyroxine Sodium (Synthroid Tab*) 25 mcg PO 0600 [facility] Last Admin: 11/05/17 05:43 Dose: 25 mcg Losartan Potassium (Cozaar Tab*) 25 mg PO DAILY [facility] Last Admin: 11/05/17 08:29 Dose: 25 mg Metolazone (Zaroxolyn Tab*) 5 mg PO DAILY@0830 [facility] Last Admin: 11/05/17 08:29 Dose: 5 mg Metoprolol Succinate (Toprol Xl Tab*) 125 mg PO DAILY [facility] Last Admin: 11/05/17 08:28 Dose: 125 mg Prednisone (Deltasone Tab*) 50 mg PO DAILY [facility] Last Admin: 11/05/17 08:30 Dose: 50 mg Tramadol HCl (Ultram*) 50 mg PO Q6H PRN PRN Reason: PAIN Last Admin: 11/05/17 10:23 Dose: 50 mg Vital Signs - 8 hr 11/05/17 11/05/17 11/05/17 05:31 07:37 08:00 Temperature 97.7 F 97.1 F Pulse Rate 73 76 Respiratory 20 20 20 Rate Blood Pressure 158/68 156/70 (mmHg) O2 Sat by Pulse 96 97 Oximetry 11/05/17 11/05/17 10:23 10:46 Temperature Pulse Rate 66 Respiratory 18 18 Rate Blood Pressure (mmHg) O2 Sat by Pulse 96 Oximetry Oxygen Devices in Use Now: None Appearance: Patient is a 62yo male who appears stated age and is sitting in the bed in [facility]. Eyes: No Scleral Icterus, PERRLA Ears/Nose/Mouth/Throat: NL Teeth, Lips, Gums, Clear Oropharnyx, Mucous Membranes Moist Neck: NL Appearance and Movements; NL JVP, Trachea Midline Respiratory: Symmetrical Chest Expansion and Respiratory Effort, - - Expiratory Wheezes and prolonged expiratory phase throughout. Cardiovascular: NL Sounds; No Murmurs; No JVD, RRR, - - 3+ pitting edema in B/L LE. Abdominal: NL Sounds; No Tenderness; No Distention, No Hepatosplenomegaly Lymphatic: No Cervical Adenopathy Extremities: No Clubbing, Cyanosis Skin: No Rash or Ulcers, No Nodules or Sclerosis Neurological: Alert and Oriented x 3, NL Sensation, NL Muscle Strength and Tone , - - CN II-XII intact. Result Diagrams: 11/05/17 08:21 11/05/17 08:21 Additional Lab and Data: Lab Results Microbiology and Other Data: Microbiology 11/03/17 15:35 Influenza Types A,B Antigen (RASHEED) - Final Nasal Specimen received for Influenza A/B Molecular testing Assess/Plan/Problems-Billing Assessment: Patient is a 61yo male with a PMH for Nephrotic syndrome with CKD III, CHF, HTN , DMII, HLD who presents with wheezing and cough for over a week and is being treated with steroids, antibiotics, inhalers for bronchitis and is being diuresed for fluid overload. - Patient Problems (1) Bronchitis Current Visit: Yes Status: Acute Code(s): J40 - BRONCHITIS, NOT SPECIFIED ACUTE OR CHRONIC SNOMED Code(s): 72903634 Comment: Patient is wheezing significantly. No history of obstructive lung disease. No infiltrate on exam. Likely bronchitis, continue steroids, inhalers, and antibiotics for anti-inflammatory properties. Slightly decreased from yesterday. Plan for 5 days of steroids and antibiotics. (2) (HFpEF) heart failure with preserved ejection fraction Current Visit: Yes Status: Acute Code(s): I50.30 - UNSPECIFIED DIASTOLIC ( CONGESTIVE) HEART FAILURE SNOMED Code(s): 60751436 Comment: Patient's weight is increased 10 pounds since August and then 4 more pounds since yesterday despite subjective diuresis. Likely a component of fluid overload contributing to SOB. Increase Lasix, continue Metolazone. Monitor renal function closely. Wrap legs and keep elevated. (3) CKD stage 3 due to type 2 diabetes mellitus Current Visit: No Status: Acute Code(s): E11.22 - TYPE 2 DIABETES MELLITUS W DIABETIC CHRONIC KIDNEY DISEASE; N18.3 - CHRONIC KIDNEY DISEASE, STAGE 3 ( MODERATE) SNOMED Code(s): 605737248593 Comment: Cret increased from baseline and better with fluids but patient has increased weight 18 pounds since August dry weight. (4) Diabetes Current Visit: No Status: Chronic Code(s): E11.9 - TYPE 2 DIABETES MELLITUS WITHOUT COMPLICATIONS SNOMED Code(s): 08536739 Comment: SSI and basal coverage. Blood Glucose only moderately well controlled likely due to steroids. (5) HLD (hyperlipidemia) Current Visit: No Status: Chronic Code(s): E78.5 - HYPERLIPIDEMIA, UNSPECIFIED SNOMED Code(s): 51357240 Comment: Continue atorvastatin. (6) HTN (hypertension) Current Visit: No Status: Chronic Code(s): I10 - ESSENTIAL (PRIMARY) HYPERTENSION SNOMED Code(s): 64856499 Comment: SBP controlled. cont metoprolol, amlodipine, Imdur, losartan, diuretics. (7) DVT prophylaxis Current Visit: No Status: Acute Priority: Medium Code(s): KLA6105 - SNOMED Code(s): 971501154 Comment: - SQ heparin. (8) Full code status Current Visit: No Status: Acute Code(s): Z78.9 - OTHER SPECIFIED HEALTH STATUS SNOMED Code(s): 794138971 Status and Disposition: Admitted inpatient.
[2017-11-05] MEDS ORDERED: Furosemide IV* 10 MG/ML 2 ML VIAL (20 MG) IV SLOW PU SCH (21:00)
[2017-11-05] MEDS: Furosemide IV* 10 MG/ML VIAL (40 MG) IV SLOW PU SCH (22:07)
[2017-11-06] MEDS: traMADol TAB* 50 MG PO PRN (05:41)
[2017-11-06] MEDS: Levothyroxine TAB* 25 MCG TAB PO SCH (05:41)
[2017-11-06] MEDS: Heparin VIAL(*) 5000 UNITS/ML VIAL (FIVE THOUSAND) SUBCUT SCH ×3 (05:42→20:56)
[2017-11-06] MEDS: DOXYcycline IV* 100 MG in NS 0.9% 250 ML* 250 ML IVPB SCH ×2 (05:44→18:20)
[2017-11-06 06:34] LABS: ABS Basophils 0 10^3/ul (0-0.2); ABS Eosinophils 0 10^3/ul (0-0.6); ABS Monocytes 0.7 10^3/ul (0-0.8); ABS Neutrophils 8.2 10^3/ul (1.5-7.7); ABS Nucleated RBC 0 10^3/ul; Eosinophil % 0 % (0-6); Hematocrit 32 % (42-52); Hemoglobin 10.6 g/dl (14.0-18.0); Lymphocyte % 10.2 % (25-47); Mean Corpuscular HGB Conc 34 g/dl (31-36); Mean Corpuscular Hemoglobin 27 pg (27-31); Mean Corpuscular Volume 79 fL (80-94); Mean Platelet Volume 8.5 um3 (7.4-10.4); Nucleated Red Blood Cells % 0.1; Platelet Count 287 10^3/ul (150-450); Red Blood Count 3.97 10^6/ul (4.0-5.4); Red Cell Distribution Width 14 % (10.5-15); White Blood Count 9.9 10^3/ul (3.5-10.8)
[2017-11-06 06:52] LABS: EGFR Non-African American 23.3 (>60)
[2017-11-06] MEDS: Metoprolol Succinate XL TAB* 50 MG PO SCH (08:29)
[2017-11-06] MEDS: Losartan TAB* 25 MG PO SCH (08:29)
[2017-11-06] MEDS: Furosemide IV* 10 MG/ML VIAL (40 MG) IV SLOW PU SCH (08:29)
[2017-11-06] MEDS: Cholecalciferol TAB* 1000 UNITS PO SCH (08:30)
[2017-11-06] MEDS: Isosorbide Mononitrate ER TAB* 30 MG PO SCH (08:31)
[2017-11-06] MEDS: amLODIPine TAB* 5 MG PO SCH (08:31)
[2017-11-06] MEDS: Aspirin EC TAB* 81 MG TAB.EC PO SCH (08:31)
[2017-11-06] MEDS: predniSONE TAB* 50 MG PO SCH (08:31)
[2017-11-06] MEDS: Metolazone TAB* 5 MG PO SCH (08:32)
[2017-11-06] MEDS ORDERED: Furosemide IV* 10 MG/ML 10 ML VIAL (100 MG) IV ONE (08:56)
[2017-11-06] MEDS: Insulin LISPRO* 1 UNITS UNIT SUBCUT SCH ×4 (09:08→20:56)
[2017-11-06] MEDS: Insulin GLARGINE(*) 1 UNITS UNIT SUBCUT SCH (09:45)
--- NOTE | 2017-11-06 16:59 | PN ---
Subjective Date of Service: 11/06/17 Interval History: Pt feel better. Breathing is much improved. edema slowly improving Family History: Unchanged from Admission Social History: Unchanged from Admission Past Medical History: Unchanged from Admission Objective Active Medications: Acetaminophen (Tylenol Tab*) 650 mg PO Q6H PRN PRN Reason: FEVER/PAIN Albuterol (Ventolin 2.5 Mg/3 Ml Neb.Janessa*) 2.5 mg INH Q4H PRN PRN Reason: SOB/WHEEZING Last Admin: 11/05/17 22:06 Dose: 2.5 mg Amlodipine Besylate (Norvasc Tab*) 10 mg PO DAILY [facility] Last Admin: 11/06/17 08:31 Dose: 10 mg Aspirin (Aspirin Ec Tab*) 81 mg PO DAILY [facility] Last Admin: 11/06/17 08:31 Dose: 81 mg Cholecalciferol (Vitamin D Tab*) 3,000 units PO DAILY [facility] Last Admin: 11/06/17 08:30 Dose: 3,000 units Dextrose (D50w Syringe 50 Ml*) 12.5 gm IV PUSH .FOR FS < 60 - SS PRN PRN Reason: FS < 60 Furosemide (Lasix Iv*) 60 mg IV 0800,1700 [facility] Heparin Sodium (Porcine) (Heparin Vial(*)) 5,000 units SUBCUT Q8HR [facility] Last Admin: 11/06/17 14:10 Dose: 5,000 units Insulin Human Lispro (Humalog*) 0 units SUBCUT ACHS [facility] PRN Reason: Protocol Last Admin: 11/06/17 12:31 Dose: 3 units Isosorbide Mononitrate (Imdur Er Tab*) 30 mg PO DAILY [facility] Last Admin: 11/06/17 08:31 Dose: 30 mg Levothyroxine Sodium (Synthroid Tab*) 25 mcg PO 0600 [facility] Last Admin: 11/06/17 05:41 Dose: 25 mcg Losartan Potassium (Cozaar Tab*) 25 mg PO DAILY [facility] Last Admin: 11/06/17 08:29 Dose: 25 mg Metolazone (Zaroxolyn Tab*) 5 mg PO DAILY@0830 [facility] Last Admin: 11/06/17 08:32 Dose: 5 mg Metoprolol Succinate (Toprol Xl Tab*) 125 mg PO DAILY [facility] Last Admin: 11/06/17 08:29 Dose: 125 mg Tramadol HCl (Ultram*) 50 mg PO Q6H PRN PRN Reason: PAIN Last Admin: 11/06/17 05:41 Dose: 50 mg Vital Signs - 8 hr 11/06/17 11/06/17 11/06/17 10:15 11:27 13:57 Temperature 97.5 F Pulse Rate 62 69 Respiratory 16 16 15 Rate Blood Pressure 139/62 139/63 (mmHg) O2 Sat by Pulse 96 98 Oximetry 11/06/17 15:50 Temperature 97.6 F Pulse Rate 57 Respiratory 16 Rate Blood Pressure 133/71 (mmHg) O2 Sat by Pulse 97 Oximetry Oxygen Devices in Use Now: None Appearance: 62 yo M in NAD, AAOx3 Eyes: No Scleral Icterus, PERRLA Ears/Nose/Mouth/Throat: NL Teeth, Lips, Gums, Mucous Membranes Moist Neck: NL Appearance and Movements; NL JVP, Trachea Midline Respiratory: Symmetrical Chest Expansion and Respiratory Effort, Clear to Auscultation Cardiovascular: NL Sounds; No Murmurs; No JVD Abdominal: NL Sounds; No Tenderness; No Distention, No Hepatosplenomegaly Lymphatic: No Cervical Adenopathy Extremities: No Clubbing, Cyanosis, - - +2 pitting edema entire LE's b/l Skin: No Rash or Ulcers, No Nodules or Sclerosis Neurological: Alert and Oriented x 3, NL Muscle Strength and Tone Result Diagrams: 11/06/17 05:58 11/06/17 05:58 Additional Lab and Data: Lab Results Microbiology and Other Data: Microbiology 11/03/17 15:35 Influenza Types A,B Antigen (RASHEED) - Final Nasal Specimen received for Influenza A/B Molecular testing Assess/Plan/Problems-Billing Assessment: Patient is a 61yo male with a PMH for Nephrotic syndrome with CKD III, CHF, HTN , DMII, HLD who presents with wheezing and cough for over a week and is being treated with steroids, antibiotics, inhalers for bronchitis and is being diuresed for fluid overload. - Patient Problems (1) SOB (shortness of breath) Comment: on presentation was likley related to a combination of acute bronchitis and fluid retention due to anasarca (2) Bronchitis Comment: Today no wheezing appreciated. will stop steroids and doxy and monitor. (3) Acute kidney injury Comment: - Resolved after diuresis - Acute on chronic kidney disease, stage 3. (4) Anasarca associated with disorder of kidney Comment: due to proteinuria/nephrotic syndrome-pt had over 5 grams of protein on his 24H urine collection in 08/31 will increase Lasix to 60 mg BID and cont Zaroxolyn today slowly improving echo showe EF 65% and no major valvular abnormalities in 08/31 (5) CKD stage 3 due to type 2 diabetes mellitus Comment: Creat increased from baseline now improved after diuresis. Wt gain of 18 pounds since August (6) Diabetes Comment: SSI . Blood Glucose only moderately well controlled likely due to steroids. (7) DVT prophylaxis Comment: - SQ heparin. Status and Disposition: Admitted inpatient.
[2017-11-06] MEDS: Furosemide IV* 10 MG/ML 10 ML VIAL (100 MG) IV SCH (17:37)
[2017-11-07] MEDS: Levothyroxine TAB* 25 MCG TAB PO SCH (05:27)
[2017-11-07] MEDS: Heparin VIAL(*) 5000 UNITS/ML VIAL (FIVE THOUSAND) SUBCUT SCH (05:27)
[2017-11-07] MEDS: Insulin LISPRO* 1 UNITS UNIT SUBCUT SCH ×2 (07:53→12:39)
[2017-11-07 08:24] VITALS: BP 156/65
[2017-11-07] MEDS: Metolazone TAB* 5 MG PO SCH (08:26)
[2017-11-07] MEDS: Aspirin EC TAB* 81 MG TAB.EC PO SCH (08:26)
[2017-11-07] MEDS: amLODIPine TAB* 5 MG PO SCH (08:26)
[2017-11-07] MEDS: Metoprolol Succinate XL TAB* 50 MG PO SCH (08:26)
[2017-11-07] MEDS: Cholecalciferol TAB* 1000 UNITS PO SCH (08:26)
[2017-11-07] MEDS: Isosorbide Mononitrate ER TAB* 30 MG PO SCH (08:27)
[2017-11-07] MEDS: Losartan TAB* 25 MG PO SCH (08:27)
[2017-11-07] MEDS: Furosemide IV* 10 MG/ML 10 ML VIAL (100 MG) IV SCH (08:31)
[2017-11-07] MEDS ORDERED: Furosemide IV* 10 MG/ML 10 ML VIAL (100 MG) IV SCH (09:00)
--- NOTE | 2017-11-07 12:15 | DS ---
CC: Daiana Bautista NP; Dr. Bo DISCHARGE SUMMARY: DATE OF ADMISSION: 11/02/17 DATE OF DISCHARGE: 11/07/17 PRIMARY CARE PROVIDER: Daiana Bautista NP from [facility]. DISCHARGE DIAGNOSES: 1. Shortness of breath due to combination of acute diastolic congestive heart failure as well as acute bronchitis. 2. Anasarca. SECONDARY DIAGNOSES: 1. History of nephrotic syndrome. 2. History of chronic kidney disease stage 3 due to diabetes. 3. Diabetes type 2. At this point, diet controlled. 4. Hypertension. 5. Hyperlipidemia. 6. Anxiety. 7. History of gout. MEDICATIONS AT DISCHARGE: Include: 1. Lasix, which was increased back to 40 mg BID 2. Amlodipine 10 mg daily. 3. Albuterol inhaler on p.r.n. basis. 4. Aspirin 81 mg daily. 5. Calcitriol 0.25 mcg daily. 6. Vitamin D 3000 units daily. 7. Imdur 30 mg daily. 8. Levothyroxine 25 mcg daily. 9. Losartan 25 mg daily. 10. Zaroxolyn 5 mg daily. 11. Metoprolol succinate 125 mg daily. LABORATORY DATA AND STUDIES PERFORMED DURING THE HOSPITAL STAY: Included: On 11/06/17, white blood cell count of 9.9, hemoglobin 10.6, hematocrit of 32, and platelets of 287. On 11/06/17, sodium of 133, potassium 4.3, chloride 102, carbon dioxide 20, BUN 93, creatinine 2.78. The patient's hemoglobin A1c was noted to be 7.1 during the hospital stay. Portable chest x-ray obtained on admission, impression: "No active cardiopulmonary disease was noted." Influenza test obtained on admission was negative. Urine cultures were negative. HOSPITALIZATION COURSE: Louie Carrillo is a 62-year-old male with history of anasarca due to nephrotic syndrome secondary to chronic kidney disease and diabetes, who presented to the hospital complaining of shortness of breath. A couple of days prior, he was in the emergency department diagnosed with upper respiratory infection and treated with prednisone and azithromycin. During the hospital stay, initially he was placed on doxycycline and steroids for respiratory wheezes and bronchospasm. He was diagnosed with acute bronchitis. He also was noted to be approximately 18 pounds over his weight from August 2017 and was also diagnosed with possible acute diastolic CHF and anasarca and treated aggressively with intravenous furosemide with fair results. By the time of discharge, the patient was comfortable and not short of breath anymore with only mild wheezes at the bases of his lungs. His weight at discharge is 244 pounds. The patient was recommended to increase his Lasix to twice a day as he previously took. He is recommended to check his weight on a daily basis and maintain his weight at 244 pounds or below. If his weight increases over 3 pounds above that limit, the patient is to call either his primary care provider or Dr. Bo for further recommendations. DIET AT DISCHARGE: Diabetic and cardiac. PHYSICAL EXAM AT THE TIME OF DISCHARGE: Blood pressure 132/59, heart rate of 59 and regular, respiratory rate 20, oxygen saturation 97% on room air, temperature 97.7. General: This is a very pleasant 62-year-old male who is in no acute distress. Alert, awake, and oriented x3. HEENT: Head is atraumatic, normocephalic. Eyes: Pupils are equal and reactive to light and accommodation. Oropharynx clear. Mucosa moist. Neck: Supple. No JVD. No bruits bilaterally. Cardiovascular: Regular rate and rhythm with 1/6 systolic ejection murmur on auscultation of the right upper sternal border. Respiratory : Faint bibasilar wheezes. Abdomen: Soft, nontender. Bowel sounds present in all 4 quadrants. Extremities: There is +2 bilateral pitting edema that is improved from prior. Pulses are +2 bilaterally. There is no clubbing or cyanosis. Neuro Evaluation: Speech clear. Cranial nerves II through XII grossly intact. Motor strength is 5/5 bilaterally. Please note that this is a short summary of the patient's hospitalization. Please refer to further medical records for details. TIME SPENT: Approximately 40 minutes was spent on the patient's discharge. [id number]/[facility] #: [id number] [facility] SYSTEMHeather
== END 2017-11-07 13:00 | disposition home or self-care (01) | DRG 194 ==
LOC: ED 14:57 → MED 17:41
PROVIDERS: ADMIT Internal Medicine; ATTEND Internal Medicine
DX: I13.0 Hypertensive heart and chronic kidney disease with heart failure and stage 1 through stage 4 chronic kidney disease, or unspecified chronic kidney disease (principal); I50.31 Acute diastolic (congestive) heart failure; N17.9 Acute kidney failure, unspecified; J20.9 Acute bronchitis, unspecified; E78.00 Pure hypercholesterolemia, unspecified; M10.9 Gout, unspecified; F41.0 Panic disorder [episodic paroxysmal anxiety]; N18.3 Chronic kidney disease, stage 3 (moderate); E11.22 Type 2 diabetes mellitus with diabetic chronic kidney disease; E11.40 Type 2 diabetes mellitus with diabetic neuropathy, unspecified; E11.21 Type 2 diabetes mellitus with diabetic nephropathy; E11.43 Type 2 diabetes mellitus with diabetic autonomic (poly)neuropathy; K31.84 Gastroparesis; E03.9 Hypothyroidism, unspecified; Z88.1 Allergy status to other antibiotic agents; Z88.8 Allergy status to other drugs, medicaments and biological substances; Z87.01 Personal history of pneumonia (recurrent); Z86.010 Personal history of colon polyps; Z82.49 Family history of ischemic heart disease and other diseases of the circulatory system; Z82.5 Family history of asthma and other chronic lower respiratory diseases; Z72.89 Other problems related to lifestyle; Z79.82 Long term (current) use of aspirin
CPT/HCPCS: 36415; 71045; 80048; 80053; 81003; 81015; 82550; 82553; 82803; 83036; 83605; 83690; 83735; 83880; 84443; 84484; 85025; 85610; 85730; 86140; 87040; 87086; 87502; 93005; 94640; 99284; A9270-GY; J0696; J1644; J1940; J2920; J2930; J7512

== ENCOUNTER 2018-03-31 15:39 | Emergency (ER) | payer OTHER ==
--- NOTE | 2018-03-31 16:36 | ED ---
Complex/Multi-Sys Presentation - HPI Summary HPI Summary: This patient is a 62 year old M BIBA to [facility] upon referral from the [place] [facility] with a chief complaint lower back pain since several months ago. The patient reports his back pain worsened since 2 days ago. Patient notes the pain is worse on the left side of his back. The patient rates the pain 10/10 in severity. Symptoms aggravated by position change. Symptoms alleviated by nothing. Pt also notes intermittent left hand swelling for several months. The patient reports that the swelling in his hand began after his nephew fell on his hand. Patient reports cough, congestion, difficulty walking, nausea, and fever for the last few days. Patient denies dysuria or diarrhea. Per triage note , patient reports shortness of breath and generalized malaise. Patient notes that he has been taking aspirin and ibuprofen. - History Of Current Complaint Chief Complaint: EDGeneral Time Seen by Provider: 03/31/18 16:22 Hx Obtained From: Patient Onset/Duration: Gradual Onset, Lasting Weeks, Still Present, Worse Since - 2 days ago Timing: Constant Severity Currently: Severe Severity Initially: Severe Location: Pain At: - lower back Aggravating Factor(s): position change Alleviating Factor(s): nothing Associated Signs And Symptoms: Positive: Weakness, SOB, Cough, Edema - in left hand, Nausea, Back Pain - L>R, Decreased Oral Intake, Fever. Negative: Diarrhea , Dysuria - Allergies/Home Medications Allergies/Adverse Reactions: Allergies Allergy/AdvReac Type Severity Reaction Status Date / Time lisinopril Allergy Difficulty Verified 03/31/18 16:24 Breathing niacin Allergy Rash Verified 03/31/18 16:24 PMH/Surg Hx/FS Hx/Imm Hx Endocrine/Hematology History: Reports: Hx Diabetes - TYPE 2 / ON ORAL MEDS, Hx Thyroid Disease Cardiovascular History: Reports: Hx Angina, Hx Hypercholesterolemia, Hx Hypertension Denies: Hx Coronary Artery Disease, Hx Myocardial Infarction, Hx Pacemaker/ ICD, Hx Valvular Heart Disease, Other Cardiovascular Problems/Disorders Respiratory History: Reports: Hx Chronic Obstructive Pulmonary Disease (COPD), Hx Pneumonia, Other Respiratory Problems/Disorders - uses albuterol inhaler at home Denies: Hx Asthma GI History: Denies: Hx Ulcer History: Reports: Other Problems/Disorders - Chronic kidney disease stage 3 Musculoskeletal History: Reports: Hx Gout, Other Musculoskeletal History - HIP PAIN Denies: Hx Arthritis, Hx Osteoporosis, Hx Scoliosis Sensory History: Reports: Hx Contacts or Glasses Denies: Hx Hearing Aid Opthamlomology History: Reports: Hx Contacts or Glasses Neurological History: Reports: Hx Headaches Denies: Other Neuro Impairments/Disorders Psychiatric History: Reports: Hx Anxiety, Hx Panic Disorder - Surgical History Surgery Procedure, Year, and Place: POLYPS REMOVED INTESTINE. APPENDECTOMY. KNEE SURGERY 1998 Hx Anesthesia Reactions: No - Immunization History Immunizations Up to Date: Yes Infectious Disease History: No Infectious Disease History: Denies: Hx Clostridium Difficile, Hx Hepatitis, Hx Human Immunodeficiency Virus (HIV), Hx of Known/Suspected MRSA, Hx Shingles, Hx Tuberculosis, Hx Known/ Suspected VRE, Hx Known/Suspected VRSA, History Other Infectious Disease, Traveled Outside the [place] in Last 30 Days - Family History Known Family History: Positive: Cardiac Disease, Hypertension, Other - father - asthma, emphysema - Social History Alcohol Use: None Alcohol Amount: quit Hx Substance Use: No Substance Use Type: Reports: None Hx Tobacco Use: No Smoking Status (MU): Never Smoked Tobacco Review of Systems Positive: Fever, Fatigue Positive: Other - nasal congestion Positive: Shortness Of Breath, Cough Positive: Nausea. Negative: Diarrhea Negative: dysuria Musculoskeletal: Other - lower back pain Positive: Edema - swelling in left hand All Other Systems Reviewed And Are Negative: Yes Physical Exam - Summary Physical Exam Summary: Appearance: The patient is well-nourished in no acute distress and in no acute pain. Skin: The skin is warm and dry and skin color reflects adequate perfusion. HEENT: The head is normocephalic and atraumatic. The pupils are equal and reactive. The conjunctivae are clear and without drainage. Nares are patent and without drainage. Mouth reveals moist mucous membranes and the throat is without erythema and exudate. The external ears are intact. The ear canals are patent and without drainage. The tympanic membranes are intact. Neck: The neck is supple with full range of motion and non-tender. There are no carotid bruits. There is no neck vein distension. Respiratory: Chest is non-tender. Lungs are clear to auscultation and breath sounds are symmetrical and equal. Cardiovascular: Heart is regular rate and rhythm. There is no murmur or rub auscultated. Pulses are symmetrical and equal. Abdomen: The abdomen is soft and non-tender. There are normal bowel sounds heard in all four quadrants and there is no organomegaly palpated. Musculoskeletal: Tenderness on left paralumbar area with decreased ROM secondary to pain. Left hand is diffusely swollen and tender. There is good capillary refill. There is peripheral edema elicited. There is no calf tenderness elicited. Neurological: Patient is alert and oriented to person, place and time. The patient has symmetrical motor strength in all four extremities. Cranial nerves are grossly intact. Deep tendon reflexes are symmetrical and equal in all four extremities. Psychiatric: The patient has an appropriate affect and does not exhibit any anxiety or depression. Triage Information Reviewed: Yes Vital Signs On Initial Exam: Initial Vitals Temp Pulse Resp BP Pulse Ox 98 F 64 16 155/87 100 03/31/18 15:51 03/31/18 15:51 03/31/18 15:51 03/31/18 15:51 03/31/18 15:51 Vital Signs Reviewed: Yes Diagnostics - Vital Signs Vital Signs Temp Pulse Resp BP Pulse Ox 03/31/18 15:51 98 F 64 16 155/87 100 - Laboratory Result Diagrams: 03/31/18 17:50 03/31/18 17:50 Lab Statement: Any lab studies that have been ordered have been reviewed, and results considered in the medical decision making process. - Radiology Left Hand XR Xray Interpretation: No Acute Changes - IMPRESSION: NO ACUTE OSSEOUS INJURY. IF SYMPTOMS PERSIST, RECOMMEND REPEAT IMAGING. Dr. Ricardo has reviewed this report Radiology Interpretation Completed By: Radiologist - CT Lumbar Spine CT CT Interpretation: No Acute Changes - IMPRESSION: SCOLIOSIS. DEGENERATIVE DISC DISEASE AND OSTEOARTHRITIS. THERE IS NO ACUTE OSSEOUS INJURY TO THE CERVICAL SPINE. THE APPEARANCE IS SIMILAR TO FEBRUARY 12, [address] Ricardo has reviewed this report. CT Interpretation Completed By: Radiologist - EKG 17:31 Cardiac Rate: NL - at 62 bpm EKG Rhythm: Sinus Rhythm ST Segment: Normal Ectopy: None EKG Interpretation: NSR at [address], no ectopy, no STEMI Re-Evaluation - Re-Evaluation 1st re-eval Re-Evaluation Time: 19:04 Change: Improved Comment: discussed imaging results with patient Complex Multi-Symp Course/Dx Course Of Treatment: Mr. Carrillo presented to the emergency department with a couple weeks of low back pain getting gradually worse in the last couple of days it's been quite severe. It is worse with movement although he still has some pain when lying perfectly still it is very minor. He also complains of pain in his left hand after his nephew fell on it 2 days ago. His left hand was swollen he was tender to any range of motion and took paraspinal palpation in the lumbar area. X-ray of his left hand and CT of his low back were both unremarkable for acute fracture. He did have a spot of blood in his urine but clinically this is not telesales representative of a kidney stone with bilateral pain and aggravation by movement. He was given a prescription for tramadol and recommended close follow-up. - Diagnoses Provider Diagnoses: Low back strain, Contusion of left hand Discharge - Sign-Out/Discharge Documenting (check all that apply): Patient Departure - discharge - Discharge Plan Condition: Stable Disposition: HOME Prescriptions: traMADol TAB* [Ultram*] 50 mg PO Q6HR PRN #20 tab MDD 4 PRN Reason: Pain Patient Education Materials: Low Back Strain (ED) Referrals: Daiana Bautista [Primary Care Provider] - Additional Instructions: Follow up with primary care physician in 2-3 days. Return to the emergency department with any new or worsening symptoms. - Billing Disposition and Condition Condition: STABLE Disposition: Home - Attestation Statements Document Initiated by Scribe: Yes Documenting Scribe: Flor Ryder Provider For Whom Debbie is Documenting (Include Credential): Mando Ricardo MD Scribe Attestation: Flor Reyes, scribed for Mando Ricardo MD on 03/31/18 at 2030. Scribe Documentation Reviewed: Yes Provider Attestation: The documentation as recorded by the suryaibFlor trevino accurately reflects the service I personally performed and the decisions made by me, Mando Ricardo MD
--- NOTE | 2018-03-31 17:38 | RAD ---
HISTORY: trauma COMPARISONS: None TECHNIQUE: Multiple contiguous axial CT scans were obtained of the lumbar spine without intravenous contrast, with coronal and sagittal multiplanar reformations. FINDINGS: SPINAL CANAL: Evaluation of the central canal is limited on CT technique; however, there is no obvious canalicular mass or epidural hemorrhage. ALIGNMENT: There is a scoliotic curvature of the spine. VERTEBRAL BODIES: Again noted is deformity of the L5 vertebral body similar to 2016 examination. There is multilevel anterolateral marginal osteophyte formation. The vertebral bodies are otherwise preserved in height without acute displaced fracture. JOINTS: There is diffuse facet osteoarthritis most pronounced at L4-L5 and L5-S1 on the right MUSCULATURE: Unremarkable INTERVERTEBRAL DISCS: There is diffuse loss of intervertebral disc height throughout the spine. AXIAL IMAGES: There is bilateral neuroforaminal narrowing most pronounced at L5-S1. There is no osseous central canal stenosis. The appearance is similar to 2016 examination. SOFT TISSUES: The visualized soft tissues of the abdomen are unremarkable. OTHER: None IMPRESSION: SCOLIOSIS. DEGENERATIVE DISC DISEASE AND OSTEOARTHRITIS. THERE IS NO ACUTE OSSEOUS INJURY TO THE CERVICAL SPINE. THE APPEARANCE IS SIMILAR TO FEBRUARY 12, 2016 EXAMINATION.
--- NOTE | 2018-03-31 17:39 | RAD ---
HISTORY: Left hand injury COMPARISONS: September 02, 2015 VIEWS: 3 , Frontal, lateral, and oblique views of the left hand FINDINGS: BONE DENSITY: Normal. BONES: There is a small exostosis versus remote posttraumatic deformity of the distal fifth metacarpal. This is stable. There is no acute displaced fracture . JOINTS: There is no arthropathy. ALIGNMENT: There is no dislocation. SOFT TISSUES: Unremarkable. OTHER FINDINGS: None. IMPRESSION: NO ACUTE OSSEOUS INJURY. IF SYMPTOMS PERSIST, RECOMMEND REPEAT IMAGING.
[2018-03-31 18:00] LABS: ABS Basophils 0.1 10^3/ul (0-0.2); ABS Eosinophils 0.4 10^3/ul (0-0.6); ABS Lymphocytes 1.5 10^3/ul (1.0-4.8); ABS Neutrophils 7.7 10^3/ul (1.5-7.7); ABS Nucleated RBC 0 10^3/ul; Eosinophil % 3.4 % (0-6); Hematocrit 30 % (42-52); Hemoglobin 10.1 g/dl (14.0-18.0); Lymphocyte % 14.1 % (25-47); Mean Corpuscular HGB Conc 33 g/dl (31-36); Mean Corpuscular Hemoglobin 26 pg (27-31); Mean Corpuscular Volume 78 fL (80-94); Mean Platelet Volume 7.5 um3 (7.4-10.4); Nucleated Red Blood Cells % 0; Platelet Count 333 10^3/ul (150-450); Red Cell Distribution Width 14 % (10.5-15); White Blood Count 10.7 10^3/ul (3.5-10.8)
[2018-03-31 18:05] LABS: INR 1.13 (0.77-1.02)
[2018-03-31 18:09] LABS: Urine Appearance Clear; Urine Blood 1+ (Negative); Urine Color Yellow; Urine Ketones Negative (Negative); Urine Protein 3+(>=500 mg/dL) (Negative); Urine Red Blood Cell 2+(6-10/hpf) (Absent); Urine Specific Gravity 1.013 (1.010-1.030); Urine Urobilinogen Negative (Negative); Urine White Blood Cell Trace(0-5/hpf) (Absent)
[2018-03-31 18:25] LABS: EGFR Non-African American 22.5 (>60)
[2018-03-31 19:54] VITALS: BP 156/78
== END 2018-03-31 19:57 | disposition home or self-care (01) ==
LOC: ED 15:39
DX: S39.012A Strain of muscle, fascia and tendon of lower back, initial encounter (principal); S60.222A Contusion of left hand, initial encounter; W50.0XXA Accidental hit or strike by another person, initial encounter; Y92.9 Unspecified place or not applicable; E11.9 Type 2 diabetes mellitus without complications; M41.9 Scoliosis, unspecified; M51.36 Other intervertebral disc degeneration, lumbar region; M47.9 Spondylosis, unspecified; Z88.8 Allergy status to other drugs, medicaments and biological substances; Z79.84 Long term (current) use of oral hypoglycemic drugs
CPT/HCPCS: 36415; 72131; 80053; 81003; 81015; 83605; 83735; 83880; 84443; 84484; 85025; 85610; 86140; 87086; 93005; 99284

== ENCOUNTER 2018-06-04 07:12 | Inpatient (IN) | payer OTHER ==
[2018-06-04] MEDS ORDERED: NS 0.9% 1000 ML* 1,000 ML IV ONE (07:33)
[2018-06-04] MEDS ORDERED: Ondansetron INJ* 2 MG/ML VIAL IV ONE (07:33)
[2018-06-04] MEDS ORDERED: Morphine VIAL* 4 MG/ML VIAL (1 ml vial) IV ONE (07:33)
[2018-06-04] MEDS ORDERED: Piperacillin/Tazobac ADVAN(*) 3.375 GM in NS 0.9% 100 ML* 100 ML IVPB ONE (07:37)
[2018-06-04] MEDS ORDERED: Vancomycin(*) 1,000 MG in NS 0.9% 250 ML* 250 ML IVPB ONE (07:37)
--- NOTE | 2018-06-04 07:45 | ED ---
Lower Extremity - HPI Summary HPI Summary: Pt. is a 62 y.o male who presents to the ER for a worsening infection to his right great toe x roughly 2 months. Hx of DM and is currently managed by diet. Pt. states he has been following with the [place] [facility] for wound care. Pt. states that he finished an antibiotic a few days ago but is unsure of name of antibx. Pt. states that wound was feeling better with antibx but pain has increased since stopping antibx. Pt. denies fever/chills, N/V. Past medical hx of DM, HTN , COPD, CKD. Moving and touching right foot makes sx worse. Pt. states pain starts in right foot and radiates into hip. Nothing makes sxs better. - History of Current Complaint Chief Complaint: EDExtremityLower Stated Complaint: RT FOOT PAIN Time Seen by Provider: 06/04/18 07:22 Hx Obtained From: Patient Pain Intensity: 10 - Allergies/Home Medications Allergies/Adverse Reactions: Allergies Allergy/AdvReac Type Severity Reaction Status Date / Time lisinopril Allergy Difficulty Verified 03/31/18 16:24 Breathing niacin Allergy Rash Verified 03/31/18 16:24 PMH/Surg Hx/FS Hx/Imm Hx Previously Healthy: Yes Endocrine/Hematology History: Reports: Hx Diabetes - TYPE 2 / ON ORAL MEDS, Hx Thyroid Disease Cardiovascular History: Reports: Hx Angina, Hx Hypercholesterolemia, Hx Hypertension Denies: Hx Coronary Artery Disease, Hx Myocardial Infarction, Hx Pacemaker/ ICD, Hx Valvular Heart Disease, Other Cardiovascular Problems/Disorders Respiratory History: Reports: Hx Chronic Obstructive Pulmonary Disease (COPD), Hx Pneumonia, Other Respiratory Problems/Disorders - uses albuterol inhaler at home Denies: Hx Asthma GI History: Denies: Hx Ulcer History: Reports: Other Problems/Disorders - Chronic kidney disease stage 3 Musculoskeletal History: Reports: Hx Gout, Other Musculoskeletal History - HIP PAIN Denies: Hx Arthritis, Hx Osteoporosis, Hx Scoliosis Sensory History: Reports: Hx Contacts or Glasses Denies: Hx Hearing Aid Opthamlomology History: Reports: Hx Contacts or Glasses Neurological History: Reports: Hx Headaches Denies: Other Neuro Impairments/Disorders Psychiatric History: Reports: Hx Anxiety, Hx Panic Disorder - Surgical History Surgery Procedure, Year, and Place: POLYPS REMOVED INTESTINE. APPENDECTOMY. KNEE SURGERY 1998 Hx Anesthesia Reactions: No Infectious Disease History: No Infectious Disease History: Denies: Hx Clostridium Difficile, Hx Hepatitis, Hx Human Immunodeficiency Virus (HIV), Hx of Known/Suspected MRSA, Hx Shingles, Hx Tuberculosis, Hx Known/ Suspected VRE, Hx Known/Suspected VRSA, History Other Infectious Disease, Traveled Outside the [place] in Last 30 Days - Family History Known Family History: Positive: Cardiac Disease, Hypertension, Other - father - asthma, emphysema - Social History Alcohol Use: None Alcohol Amount: quit Hx Substance Use: No Substance Use Type: Reports: None Hx Tobacco Use: No Smoking Status (MU): Never Smoked Tobacco Review of Systems Constitutional: Negative Negative: Fever, Chills Gastrointestinal: Negative Positive: Other - wound and pain to right great toe All Other Systems Reviewed And Are Negative: Yes Physical Exam Triage Information Reviewed: Yes Vital Signs On Initial Exam: Initial Vitals Temp Pulse Resp BP Pulse Ox 97.1 F 67 20 153/71 99 06/04/18 07:12 06/04/18 07:12 06/04/18 07:12 06/04/18 07:12 06/04/18 07:12 Vital Signs Reviewed: Yes Appearance: Positive: Pain Distress - Pt. lying in bed, appears in pain but nontoxic. Appears older than stated age. Family member present. Skin: Positive: Warm, Dry Head/Face: Positive: Normal Head/Face Inspection Eyes: Positive: Normal, EOMI Neck: Positive: Supple Cardiovascular: Positive: Normal, RRR Musculoskeletal: Positive: Other - Maceration noted around right right great nailbed with surrouding erythema that extends to foot. Area is very tender to palpation. Ulceratio noted to the pedal aspect of distal toe. +1 pitting edema. Palpable PT pulse. Neurological: Positive: Normal, CN Intact II-III Psychiatric: Positive: Affect/Mood Appropriate Diagnostics - Vital Signs Vital Signs Temp Pulse Resp BP Pulse Ox 06/04/18 07:31 15 157/84 06/04/18 07:30 68 21 99 06/04/18 07:12 97.1 F 67 20 153/71 99 - Laboratory Result Diagrams: 06/04/18 07:47 06/04/18 07:47 Lab Statement: Any lab studies that have been ordered have been reviewed, and results considered in the medical decision making process. Lower Extremity Course/Dx - Course Course Of Treatment: Pt. presenting for worsening wound to right great toe despite a course of PO antibx. Pt. is afebrile with stable VS. Labs, cultures and xray ordered. Will start on vanc and zosyn and IV fluids. Morphine ordered for pain. CBC shows mild leukocytosis. CKD. Glucose 116. Xray is consistent with osteomylitis in great toe, reading per radiology. I spoke with hopsitalist , Dr. Hester, and she will admit pt. for IV antibx and likely orthopedic consult. Results discussed with pt. He understands and agrees with plan. - Diagnoses Differential Diagnosis/HQI/PQRI: Positive: Arthritis, Cellulitis, Fracture ( Closed), Gout, Infection, Osteomyelitis, Sprain, Strain Provider Diagnoses: Osteomyelitis Discharge - Sign-Out/Discharge Documenting (check all that apply): Patient Departure - Discharge Plan Condition: Stable Disposition: ADMITTED TO [facility] Referrals: Daiana Bautista [Primary Care Provider] - - Billing Disposition and Condition Condition: STABLE Disposition: Admitted to [facility]
[2018-06-04 08:08] LABS: ABS Basophils 0.1 10^3/ul (0-0.2); ABS Eosinophils 0.3 10^3/ul (0-0.6); ABS Lymphocytes 0.9 10^3/ul (1.0-4.8); ABS Neutrophils 8.9 10^3/ul (1.5-7.7); ABS Nucleated RBC 0 10^3/ul; Eosinophil % 2.7 % (0-6); Hematocrit 30 % (42-52); Hemoglobin 10.4 g/dl (14.0-18.0); Lymphocyte % 8.1 % (25-47); Mean Corpuscular HGB Conc 34 g/dl (31-36); Mean Corpuscular Hemoglobin 26 pg (27-31); Mean Corpuscular Volume 76 fL (80-94); Mean Platelet Volume 7.8 fL (7.4-10.4); Nucleated Red Blood Cells % 0.1; Platelet Count 309 10^3/ul (150-450); Red Blood Count 4.01 10^6/ul (4.00-5.40); Red Cell Distribution Width 15 % (10.5-15); White Blood Count 11.2 10^3/ul (3.5-10.8)
[2018-06-04 08:17] LABS: EGFR Non-African American 27.5 (>60)
[2018-06-04] MEDS ORDERED: Acetaminophen TAB* 325 MG PO ONE (09:05)
[2018-06-04] MEDS ORDERED: Albuterol HFA INHALER* 8 gm MDI INH PRN (10:33)
[2018-06-04] MEDS ORDERED: Dextrose 50% Syringe 50 ML* 25 GM/50 ML SYRINGE IV PUSH PRN (10:41)
[2018-06-04] MEDS ORDERED: Acetaminophen TAB* 325 MG PO PRN (10:42)
[2018-06-04] MEDS ORDERED: Vancomycin(*) 500 MG in NS 0.9% 250 ML* 250 ML IVPB ONE (11:00)
[2018-06-04] MEDS ORDERED: Vancomycin per Pharmacy* NOTE FOLLOW UP SCH (11:00)
[2018-06-04] MEDS: Furosemide TAB* 40 MG PO SCH ×2 (11:55→21:41)
[2018-06-04] MEDS: Losartan TAB* 25 MG PO SCH (11:55)
[2018-06-04] MEDS: Isosorbide Mononitrate ER TAB* 30 MG PO SCH (11:55)
[2018-06-04] MEDS: Calcitriol CAP* 0.25 MCG PO SCH (11:55)
[2018-06-04] MEDS: amLODIPine TAB* 5 MG PO SCH (11:55)
[2018-06-04] MEDS: Levothyroxine TAB* 25 MCG TAB PO SCH (11:55)
[2018-06-04] MEDS: Metoprolol Succinate XL TAB* 25 MG PO SCH (11:55)
[2018-06-04] MEDS: Aspirin EC TAB* 81 MG TAB.EC PO SCH (11:58)
[2018-06-04] MEDS: Cholecalciferol TAB* 1000 UNITS PO SCH (11:58)
[2018-06-04] MEDS: Metolazone TAB* 5 MG PO SCH (11:58)
[2018-06-04] MEDS: Insulin LISPRO* 1 UNITS UNIT SUBCUT SCH ×3 (12:12→20:16)
[2018-06-04] MEDS: Cefepime 1 GM in Dextrose(*) 1 GM/50 ML BAG IV SCH ×2 (12:12→23:10)
[2018-06-04] MEDS: Gabapentin CAP(*) 100 MG PO SCH ×2 (13:40→21:41)
[2018-06-04] MEDS: Heparin VIAL(*) 5000 UNITS/ML VIAL (FIVE THOUSAND) SUBCUT SCH ×2 (13:40→21:41)
[2018-06-04] MEDS: Morphine INJ* 2 MG/ML 1 ML SYRINGE (TWO MG - NEW SYRINGE VERSION) IV PRN ×2 (13:45→21:41)
--- NOTE | 2018-06-04 15:30 | HP ---
CC: Daiana Bautista NP, at the [facility]; Dr. Ruperto Whitaker* HISTORY AND PHYSICAL: DATE OF ADMISSION: 06/04/18 TIME OF EVALUATION: 09:15 a.m. PRIMARY CARE PROVIDER: Daiana Bautista NP, at the [facility]. CONSULTING ORTHOPEDIST: Dr. Ruperto Whitaker. CHIEF COMPLAINT: "My toe hurts." HISTORY OF PRESENT ILLNESS: Mr. Carrillo is a 62-year-old male with a past medical history of hypertension, hyperlipidemia, anxiety, gout, CKD x3, nephrotic syndrome, possible congestive heart failure, type 2 diabetes with diabetic neuropathy and diabetic gastroparesis, who presents to the emergency room with complaints of right toe pain. The patient states that he has had right hallux pain for months. He states that he is being followed at the [place], saw the diesel automotive technician in [place] and had some debridement done and was advised to have dry gauze dressings every day for discharge. He was treated with an unknown antibiotic as an outpatient for roughly 20 days and he states that he did not feel any improvement as the toe was still swollen, red, the wound still had drainage and over this past week, the pain has also increased to the point that he could not tolerate anymore and came into the emergency room today. He denies fever, chills, diaphoresis, chest pain, palpitation, shortness of breath, or other complaints. PAST MEDICAL HISTORY: 1. Type 2 diabetes with diabetic neuropathy and gastroparesis. 2. Hypertension. 3. Hyperlipidemia. 4. Anxiety. 5. Gout. 6. Nephrotic syndrome with CKD stage 3. 7. Possible congestive heart failure. PAST SURGICAL HISTORY: 1. Status post knee surgery. 2. Status post appendectomy. MEDICATION LIST: 1. Albuterol HFA 1 to 2 puffs inhale q.4 hours p.r.n. shortness of breath. 2. Amlodipine 10 mg p.o. daily. 3. Aspirin 81 mg p.o. daily. 4. Calcitriol 0.25 mcg p.o. daily. 5. Cholecalciferol 2000 units p.o. daily. 6. Furosemide 40 mg p.o. b.i.d. 7. Imdur 30 mg p.o. daily. 8. Levothyroxine 25 mcg p.o. daily. 9. Losartan 25 mg p.o. daily. 10. Metolazone 5 mg p.o. daily. 11. Metoprolol succinate 125 mg p.o. daily. ALLERGIES: With LISINOPRIL, the patient had difficulty breathing and with NIACIN, she had a rash. FAMILY HISTORY: The patient's father had a history of NM, pacemaker, and also asthma. SOCIAL HISTORY: The patient denies history of tobacco or drug use. He is a former drinker, but has quit 5 years ago. REVIEW OF SYSTEMS: A 14-point review of systems was performed and all the pertinent negative and positive findings are in the HPI. PHYSICAL EXAMINATION GENERAL: The patient is a pleasant elderly gentleman, sitting in the ED stretcher, in no acute distress. VITAL SIGNS: Temperature 98.0, heart rate is 66, respiratory rate is 18, oxygen saturation 99% on room air, blood pressure is 141/66. CHEST: Breath sounds bilaterally with no added sounds. CVS: Normal S1 and S2. Regular rate and rhythm. ABDOMEN: Obese. Bowel sounds present. EXTREMITIES: The patient has hyperkeratosis of his foot. The right hallux is edematous, erythematous with a callus that appears to have been recently debrided. There is no discharge at this time. Pulses are diminished on both feet, but capillary refill is good. Sensation is decreased. DIAGNOSTIC STUDIES/LAB DATA: The patient had a CBC that showed WBC of 11.2, hemoglobin of 10.4, hematocrit of 30, platelets 309,000 with 79% neutrophils. Chemistry showed a sodium of 138, potassium of 4.8, chloride of 109, bicarb of 21, BUN of 44, creatinine of 2.4, glucose of 160, lactic acid of 0.5, calcium of 8.8. LFTs showed a total bilirubin of 0.3, AST of 12, ALT of 21, alk phos of 51. Right foot x-ray shows findings suggestive of osteomyelitis involving the distal phalanx of the great toe. ASSESSMENT AND PLAN: Mr. Carrillo is a 62-year-old male with a past medical history of hypertension, hyperlipidemia, type 2 diabetes with diabetic neuropathy, and gastroparesis, anxiety, gout, nephrotic syndrome, with CKD stage 3, possible congestive heart failure, who presents to the emergency room with complaints of right hallux pain, found to have diabetic foot infection/ osteomyelitis. 1. Diabetic foot infection/hallux osteomyelitis. The patient would be admitted as an inpatient to the medical floor and he would be treated empirically with vancomycin and cefepime. Consultation will be requested with orthopedist (Dr. Whitaker) to determine a further debridement or any other surgical approach is indicated. I am going to check his CRP and ESR. We will also check an MALLORIE. 2. Type 2 diabetes. The patient states that all his diabetes medications were discontinued because his numbers were "very good" and he was supposed to just treated with diet. I am going to request the records from the [facility] and we will also check hemoglobin A1c. For now, we are going to monitor his fingersticks and cover with lispro sliding scale. 3. Hypertension. It is controlled. We will continue aspirin, Imdur, metoprolol. 4. Nephrotic syndrome/chronic kidney disease stage 3. The patient's renal function is stable and we will continue metolazone and furosemide. 5. DVT prophylaxis: The patient has a score of 2 on the DVT Prophylaxis Risk Assessment Guide and will be started on subcutaneous heparin. 6. Code status is full. TIME SPENT: Approximately 50 minutes were spent with the patient interview, medical records review, physical examination to complete this admission, more than half of this time was spent [id number] with the patient and coordination of care. [id number]/[facility] #: [id number] MAG
--- NOTE | 2018-06-04 19:27 | CONS ---
CONSULTATION REPORT: DATE OF CONSULT: 06/04/18 HISTORY OF PRESENT ILLNESS: Louie is a pleasant 62-year-old gentleman who is currently living with his mother in the area, but he has been getting his medical care in the past at the [facility]. He is not sure how long ago he saw his primary care doctor, but claims he saw a program coordinator executive education within the last month. At any rate, he has had ulceration of the right great toe with swelling and drainage for an indefinite period of time. He is having some tenderness and streaking now up into the midfoot and he has a plain radiograph that clearly shows osteomyelitis of the distal phalanx. I discussed with Louie today the possibility of losing his great toe, which I would proceed with in the near future and I think he needs to have this in order to debulk the infection load in his right foot. PAST MEDICAL HISTORY: His medical history is outlined in the previous note from the intake physician including his history of angina, hypercholesterolemia , hypertension, coronary artery disease. He is also a type 2 diabetic, supposedly oral controlled or diet controlled. There is also a history of some anxiety. He also has asthma, uses alcohol inhaler and he is doing some wheezing today at bedside. PHYSICAL EXAM: Examination of the right foot shows a warm erythematous foot. Swelling is mostly limited to the great toe which is greatly enlarged, puffy red with a large plantar ulcer that looks chronic, probably a month or 2 at least, and some clear serous drainage, nothing particularly foul smelling. DIAGNOSTIC STUDIES: Plain radiographs do show osteolytic lesion of the distal phalanx right great toe. ASSESSMENT AND PLAN: The patient with chronic osteomyelitis of his right great toe, diabetic ulcer and poor soft tissues. Plan will be first MTP disarticulation right great toe. We will work toward medical clearance and scheduling. [id number]/[facility] #: [id number] MAG
[2018-06-05] MEDS: Heparin VIAL(*) 5000 UNITS/ML VIAL (FIVE THOUSAND) SUBCUT SCH ×3 (05:59→21:17)
[2018-06-05] MEDS ORDERED: Vancomycin Random Level* NOTE FOLLOW UP ONE (06:00)
[2018-06-05] MEDS: Insulin LISPRO* 1 UNITS UNIT SUBCUT SCH ×4 (08:00→21:04)
[2018-06-05 08:34] LABS: ABS Basophils 0.1 10^3/ul (0-0.2); ABS Eosinophils 0.1 10^3/ul (0-0.6); ABS Lymphocytes 1.1 10^3/ul (1.0-4.8); ABS Monocytes 1.3 10^3/ul (0-0.8); ABS Neutrophils 8.3 10^3/ul (1.5-7.7); ABS Nucleated RBC 0 10^3/ul; Eosinophil % 0.8 % (0-6); Hematocrit 29 % (42-52); Hemoglobin 9.6 g/dl (14.0-18.0); Lymphocyte % 10.2 % (25-47); Mean Corpuscular HGB Conc 33 g/dl (31-36); Mean Corpuscular Hemoglobin 25 pg (27-31); Mean Corpuscular Volume 76 fL (80-94); Mean Platelet Volume 7.6 fL (7.4-10.4); Nucleated Red Blood Cells % 0.1; Platelet Count 250 10^3/ul (150-450); Red Blood Count 3.81 10^6/ul (4.00-5.40); Red Cell Distribution Width 15 % (10.5-15); White Blood Count 10.9 10^3/ul (3.5-10.8)
[2018-06-05 08:42] LABS: INR 1.24 (0.77-1.02)
[2018-06-05 08:50] LABS: EGFR Non-African American 24.7 (>60)
[2018-06-05] MEDS: Levothyroxine TAB* 25 MCG TAB PO SCH (09:00)
[2018-06-05] MEDS: Metoprolol Succinate XL TAB* 25 MG PO SCH (09:00)
[2018-06-05] MEDS: amLODIPine TAB* 5 MG PO SCH (09:00)
[2018-06-05] MEDS: Isosorbide Mononitrate ER TAB* 30 MG PO SCH (09:01)
[2018-06-05] MEDS: Gabapentin CAP(*) 100 MG PO SCH ×3 (09:01→21:16)
[2018-06-05] MEDS: Losartan TAB* 25 MG PO SCH (09:01)
[2018-06-05] MEDS: Furosemide TAB* 40 MG PO SCH ×2 (09:02→21:16)
[2018-06-05] MEDS: Metolazone TAB* 5 MG PO SCH (09:02)
[2018-06-05] MEDS: Calcitriol CAP* 0.25 MCG PO SCH (09:04)
[2018-06-05] MEDS: Aspirin EC TAB* 81 MG TAB.EC PO SCH (09:04)
[2018-06-05] MEDS: Cholecalciferol TAB* 1000 UNITS PO SCH (09:04)
[2018-06-05] MEDS ORDERED: Bupivacaine 0.5% SDV PF* 30ML VIAL ONE ×2 (09:16→11:09)
[2018-06-05] MEDS ORDERED: Lidocaine 2% PF * 5 ML VIAL ONE ×2 (09:16→11:08)
[2018-06-05] MEDS ORDERED: Famotidine IV* 10 MG/ML 2 ML (20 mg) IV ONE (09:36)
[2018-06-05] MEDS ORDERED: Ondansetron INJ* 2 MG/ML VIAL ONE (09:36)
[2018-06-05] MEDS ORDERED: Buffered Lidocaine 0.9% SYRIN* 5 ML/SYR SYRINGE INTRADERM ONE (09:36)
[2018-06-05] MEDS ORDERED: fentaNYL* 50 MCG/ML 2 ML VIAL (100 MCG VIAL) IV PRN (09:39)
[2018-06-05] MEDS ORDERED: Naloxone* 0.4 MG/ML 1 ML VIAL IV PRN (09:39)
[2018-06-05] MEDS ORDERED: Vancomycin(*) 1,250 MG in NS 0.9% 250 ML* 250 ML IVPB ONE (10:00)
[2018-06-05] MEDS: Cefepime 1 GM in Dextrose(*) 1 GM/50 ML BAG IV SCH ×2 (11:04→22:36)
--- NOTE | 2018-06-05 11:13 | PN ---
Subjective Date of Service: 06/05/18 Interval History: HOSPITALIST PROGRESS NOTE Patient seen and examined at bedside. Care reviewed and d/w Darlene Abrams RN. He feels a little better today. States his toe pain is less intense, was able to get some sleep last night. He has no complaints of chest pain at rest or with exertion and denies dyspnea or palpitations. Family History: Unchanged from Admission Social History: Unchanged from Admission Past Medical History: Unchanged from Admission Objective Active Medications: Acetaminophen (Tylenol Tab*) 650 mg PO Q6H PRN PRN Reason: pain/fever Last Admin: 06/05/18 00:32 Dose: 650 mg Albuterol (Ventolin Hfa Inhaler*) 2 puff INH Q4H PRN PRN Reason: SOB/WHEEZING Last Admin: 06/04/18 13:49 Dose: 2 puff Amlodipine Besylate (Norvasc Tab*) 10 mg PO DAILY [facility] Last Admin: 06/05/18 09:00 Dose: 10 mg Aspirin (Aspirin Ec Tab*) 81 mg PO DAILY [facility] Last Admin: 06/05/18 09:04 Dose: Not Given Calcitriol (Rocaltrol Cap*) 0.25 mcg PO DAILY [facility] Last Admin: 06/05/18 09:04 Dose: Not Given Cholecalciferol (Vitamin D Tab*) 3,000 units PO DAILY [facility] Last Admin: 06/05/18 09:04 Dose: Not Given Dextrose (D50w Syringe 50 Ml*) 12.5 gm IV PUSH .FOR FS < 60 - SS PRN PRN Reason: FS < 60 Fentanyl Citrate (Fentanyl*) 25 mcg IV Q5M PRN PRN Reason: PAIN - MODERATE Furosemide (Lasix Tab*) 40 mg PO BID [facility] Last Admin: 06/05/18 09:02 Dose: 40 mg Gabapentin (Neurontin Cap(*)) 100 mg PO TID [facility] Last Admin: 06/05/18 09:01 Dose: 100 mg Heparin Sodium (Porcine) (Heparin Vial(*)) 5,000 units SUBCUT Q8HR [facility] Last Admin: 06/05/18 05:59 Dose: Not Given Cefepime HCl (Maxipime 1 Gm In Dextrose Duplex (*)) 1 gm in 50 mls @ 100 mls/ hr IV Q12H [facility] Last Admin: 06/04/18 23:10 Dose: 100 mls/hr Lactated Ringer's (Lactated Ringers 1000 Ml Bag*) 1,000 mls @ 125 mls/hr IV PER RATE [facility] Vancomycin HCl 1,250 mg/ (Sodium Chloride) 250 mls @ 166.667 mls/hr IVPB ONCE ONE Stop: 06/05/18 11:29 Insulin Human Lispro (Humalog*) 0 units SUBCUT ACHS [facility]; Protocol Last Admin: 06/05/18 08:00 Dose: Not Given Isosorbide Mononitrate (Imdur Er Tab*) 30 mg PO DAILY [facility] Last Admin: 06/05/18 09:01 Dose: 30 mg Levothyroxine Sodium (Synthroid Tab*) 25 mcg PO DAILY [facility] Last Admin: 06/05/18 09:00 Dose: 25 mcg Losartan Potassium (Cozaar Tab*) 25 mg PO DAILY [facility] Last Admin: 06/05/18 09:01 Dose: 25 mg Metolazone (Zaroxolyn Tab*) 5 mg PO DAILY [facility] Last Admin: 06/05/18 09:02 Dose: 5 mg Metoprolol Succinate (Toprol Xl Tab*) 125 mg PO DAILY [facility] Last Admin: 06/05/18 09:00 Dose: 125 mg Morphine Sulfate (Morphine Inj ((Syringe))*) 2 mg IV Q1H PRN PRN Reason: SEVERE PAIN Last Admin: 06/04/18 21:41 Dose: 2 mg Naloxone HCl (Narcan*) 0.08 mg IV Q2M PRN PRN Reason: severe induced resp depression Ondansetron HCl (Zofran Inj*) 4 mg .SEE ORDER ONCE ONE Stop: 06/05/18 09:37 Pharmacy Consult (Vancomycin Per Pharmacy*) 1 note FOLLOW UP .VANC PER PHARMACY [facility] Pharmacy Consult (Vancomycin Random Level*) 1 note FOLLOW UP ONCE ONE Stop: 06/06/18 06:01 Vital Signs - 8 hr 06/05/18 06/05/18 06/05/18 03:52 08:00 08:59 Temperature 98.5 F 99.3 F Pulse Rate 68 69 Respiratory 16 22 22 Rate Blood Pressure 134/54 140/63 (mmHg) O2 Sat by Pulse 95 95 Oximetry 06/05/18 09:01 Temperature Pulse Rate Respiratory 22 Rate Blood Pressure (mmHg) O2 Sat by Pulse Oximetry Oxygen Devices in Use Now: None Appearance: Pleasant elderly gentleman lying in bed in NAD Eyes: No Scleral Icterus Ears/Nose/Mouth/Throat: Mucous Membranes Moist Neck: Trachea Midline Respiratory: Symmetrical Chest Expansion and Respiratory Effort, Clear to Auscultation Cardiovascular: RRR - Normal S1 and S2 Abdominal: NL Sounds; No Tenderness; No Distention Extremities: - - Right hallux edema and erythema Neurological: Alert and Oriented x 3, NL Muscle Strength and Tone Result Diagrams: 06/05/18 08:26 06/05/18 08:26 Microbiology and Other Data: Microbiology 06/04/18 07:47 Aerobic Blood Culture - Preliminary Blood Venous Anaerobic Blood Culture - Preliminary No Growth Day 1 Blood MRSA/MSSA (PCR) - Final Mrsa Positive S.aureus Positive Assess/Plan/Problems-Billing Assessment: Mr Carrillo is a 62yo M with PMH of type 2 DM, diabetic neuropathy and gastroparesis, HTN HLD, gout, anxiety, nephrotic syndrome with CKD stage 3, diastolic CHF, who presented to ED with c/o 2 months of right hallux wound, pain , worsening with edema and erythema, found to have hallux osteomyelitis. - Patient Problems (1) MRSA (methicillin resistant Staphylococcus aureus) septicemia Comment: - Patient spiked fever yesterday and blood culture is growing MRSA. - Source is toe osteomyelitis. - Check transthoracic echocardiogram. - Repeat blood cultures. (2) Toe osteomyelitis, right Comment: - With diabetic foot infection. - Ortho input appreciated - plan for MTP disarticulation today. - Patient has no c/o chest pain, palpitations or dyspnea. Echo from 08/31 shows preserved EF and no wall motions abnormalities. EKG negative for ischemic changes. RCRI is 2 predicting a 2.4-3.6% risk of cardiac complications. Patient is optimized for proposed procedure. - Continue Vancomycin and Cefepime. (3) Diabetes Comment: - A1c is 6.8. - Continue Lispro SS. (4) HTN (hypertension) Comment: - Controlled. - Continue metoprolol, amlodipine, Imdur, losartan, diuretics. (5) HLD (hyperlipidemia) Comment: - Continue atorvastatin. (6) Nephrotic syndrome Comment: - Continue Furosemide and metolazone. (7) DVT prophylaxis Comment: - SQ heparin. (8) Full code status Status and Disposition: Inpatient for management of toe osteomyelitis / diabetic foot infection / MRSA septicemia failed outpatient therapy.
[2018-06-05] MEDS: Morphine INJ* 2 MG/ML 1 ML SYRINGE (TWO MG - NEW SYRINGE VERSION) IV PRN (11:33)
[2018-06-05] MEDS ORDERED: Midazolam* 1 MG/ML 5 ML VIAL (5 MG) ONE (12:01)
[2018-06-05] MEDS ORDERED: KETAMINE HCL* 50 MG/ML 10 ML VIAL ONE (12:01)
[2018-06-05] MEDS ORDERED: fentaNYL* 50 MCG/ML 2 ML VIAL (100 MCG VIAL) ONE (12:01)
[2018-06-05] MEDS ORDERED: Propofol* 10 MG/ML 20 ML BTL IV PUSH ONE (12:51)
[2018-06-05] MEDS ORDERED: Perflutren Lipid Microsphere* 3 ML VIAL ONE (15:17)
[2018-06-05] MEDS: HYDROcodone/ACETAMIN 5-325 MG* 1 TAB PO PRN (15:51)
--- NOTE | 2018-06-05 19:12 | ECHO ---
Patient: GISELLE SOLANO [facility] Rec#: [id number] : 1955 Date: 06/05/2018 Age: 62y Height: 178 cm / 70.1 in Weight: 103.5 kg / 228.1 lbs Sex: M BSA: 2.21 Room#: 422 Admit Date#: 06/04/2018 Type: Inpatient Referring: Cortney Vigil MD Reading: Nirali Bauer MD Quilt Maker: Izabela Gonzalez RDCS CC: Daiana Bautista Transthoracic Echocardiogram Indication: Bacteremia BP: 140/63 HR: 66 Rhythm: NSR Findings History: HTN, HLD, DM, CKD, obesity. Technical Comments: The study was technically limited due to the patient's inability to lay in the left lateral decubitus position. Completed at 1610. Left Ventricle: The left ventricular chamber size is normal. Mild to moderate concentric left ventricular hypertrophy is observed. There is a prominent septal knuckle. Global left ventricular wall motion and contractility are within normal limits. There is normal left ventricular systolic function. The estimated ejection fraction is 60-65%. There is septal flattening of the interventricular septum consistent with right ventricular volume or pressure overload. Abnormal left ventricular diastolic function is observed. Left Atrium: The left atrium is mildly dilated. Right Ventricle: The right ventricle is moderately dilated. The right ventricular global systolic function is normal. Right Atrium: The right atrium is slightly dilated. Aortic Valve: The aortic valve structure is not well visualized. The aortic valve leaflets are mildly thickened. There is aortic annular calcification. There is no evidence of aortic regurgitation. There is no evidence of aortic stenosis. The mean gradient of the aortic valve is 10 mmHg. The peak instantaneous gradient of the aortic valve is 20 mmHg. The aortic valve area, by VTI's, is calculated at 2.3 cm2. Mitral Valve: There is mitral annular calcification. The mitral valve leaflets are mildly thickened. There is mild mitral regurgitation. There is no evidence of mitral stenosis. No vegetation is observed on the mitral valve. Tricuspid Valve: The tricuspid valve leaflets are normal. There is trace tricuspid regurgitation. Unable to estimate the right ventricular systolic pressure. There is no tricuspid stenosis. No vegetation is observed on the tricuspid valve. Pulmonic Valve: The pulmonic valve appears normal. There is a trace pulmonic regurgitation. There is no pulmonic stenosis. No vegetation is observed on the pulmonic valve. Pericardium: There is no significant pericardial effusion. A pericardial fat pad is visualized. Aorta: There is no dilatation of the ascending aorta. The aortic arch is not well visualized. The aortic root is normal in size. Pulmonary Artery: The main pulmonary artery is not well visualized. Venous: The inferior vena cava is dilated. There is a greater than 50% respiratory change in the inferior vena cava dimension. Contrast: Definity was used to optimize study. 3 mL of diluted Definity were utilized. Intravenous contrast was used to enhance endocardial border definition. Conclusions Mild to moderate concentric left ventricular hypertrophy is observed with septal prominence. Global left ventricular wall motion and contractility are within normal limits. The estimated ejection fraction is 60-65%. Abnormal left ventricular diastolic function is observed. The right ventricle is moderately dilated. The right ventricular global systolic function is normal. Sclerotic valves but no vegetations noted. The aortic valve leaflets are mildly thickened with good excursion and function. There is mitral annular calcification. The mitral valve leaflets are mildly thickened. There is mild mitral regurgitation. There is trace tricuspid regurgitation. There is a trace pulmonic regurgitation. Compared with prior echo of 08/23/17, LVH seen previously, ventricular function is stable, septal flattening seen previously, valvular sclerosis and insufficiency not significantly changed. Measurements Name Value Normal Range RVIDd (AP) 2D 3.7 cm (0.9 - 2.6) RVDdMajor (2D) 5.1 cm (2.2 - 4.4) RAd ISD 4CH 4.9 cm (3.4 - 4.9) RA (A4C)W 4.7 cm (2.9 - 4.6) IVSd (2D) 1.3 cm (0.6 - 1) LVPWd (2D) 1.3 cm (0.6 - 1) LVIDd (2D) 4.3 cm (3.6 - 5.4) LVIDs (2D) 3 cm - LV FS (2D) 30 % (25 - 45) Aortic Annulus 2.2 cm (1.4 - 2.6) Ao root diameter (2D) 3 cm (2.1 - 3.5) Ascending Ao 2.8 cm (2.1 - 3.4) LA dimension (AP) 2D 4.4 cm (2.3 - 3.8) LAd ISD 4CH 5.7 cm (2.9 - 5.3) LA ISD 4CH W 4.3 cm (2.5 - 4.5) Name Value Normal Range LA ESV BP (A/L) index 36 ml/m2 - Name Value Normal Range MV E-wave Vmax 1.3 m/sec - MV deceleration time 224 msec - MV A-wave Vmax 0.9 m/sec - MV E:A ratio 1.4 ratio - LV septal e' Vmax 0.07 m/sec - LV lateral e' Vmax 0.11 m/sec - LV E:e' septal ratio 18.5 ratio - LV E:e' lateral ratio 11.8 ratio - Name Value Normal Range AV Vmax 2.3 m/sec - AV VTI 49.4 cm - AV peak gradient 20 mmHg - AV mean gradient 10 mmHg - LVOT diameter 2 cm - LVOT Vmax 1.7 m/sec - LVOT VTI 36.9 cm - LVOT peak gradient 11 mmHg - LVOT mean gradient 3 mmHg - LAURA (continuity Vmax) 2.3 cm2 - LAURA (continuity VTI) 2.3 cm2 - Name Value Normal Range MV Vmax 1.5 m/sec - MV VTI 42.6 cm - MV peak gradient 9 mmHg - MV mean gradient 3 mmHg - MV PHT 84 msec - MVA (PHT) 2.6 cm2 - MVA (continuity VTI) 2.7 cm2 - Name Value Normal Range IVC diameter 2.2 cm - Name Value Normal Range PV Vmax 1.4 m/sec - PV peak gradient 8 mmHg -
[2018-06-06] MEDS: Morphine INJ* 2 MG/ML 1 ML SYRINGE (TWO MG - NEW SYRINGE VERSION) IV PRN (03:25)
[2018-06-06] MEDS ORDERED: Vancomycin Random Level* NOTE FOLLOW UP ONE (06:00)
[2018-06-06 06:22] LABS: ABS Basophils 0.1 10^3/ul (0-0.2); ABS Eosinophils 0.1 10^3/ul (0-0.6); ABS Monocytes 1.3 10^3/ul (0-0.8); ABS Neutrophils 8.5 10^3/ul (1.5-7.7); ABS Nucleated RBC 0 10^3/ul; Eosinophil % 1.3 % (0-6); Hematocrit 27 % (42-52); Lymphocyte % 9.1 % (25-47); Mean Corpuscular HGB Conc 33 g/dl (31-36); Mean Corpuscular Hemoglobin 25 pg (27-31); Mean Corpuscular Volume 76 fL (80-94); Mean Platelet Volume 8.4 fL (7.4-10.4); Nucleated Red Blood Cells % 0.1; Platelet Count 263 10^3/ul (150-450); Red Blood Count 3.58 10^6/ul (4.00-5.40); Red Cell Distribution Width 15 % (10.5-15); White Blood Count 11.1 10^3/ul (3.5-10.8)
[2018-06-06 06:44] LABS: EGFR Non-African American 22.2 (>60)
[2018-06-06] MEDS: Heparin VIAL(*) 5000 UNITS/ML VIAL (FIVE THOUSAND) SUBCUT SCH ×3 (07:08→20:52)
[2018-06-06] MEDS: Metoprolol Succinate XL TAB* 25 MG PO SCH (08:17)
[2018-06-06] MEDS: Metolazone TAB* 5 MG PO SCH (08:18)
[2018-06-06] MEDS: HYDROcodone/ACETAMIN 5-325 MG* 1 TAB PO PRN ×4 (08:18→20:50)
[2018-06-06] MEDS: Cholecalciferol TAB* 1000 UNITS PO SCH (08:18)
[2018-06-06] MEDS: Levothyroxine TAB* 25 MCG TAB PO SCH (08:18)
[2018-06-06] MEDS: amLODIPine TAB* 5 MG PO SCH (08:18)
[2018-06-06] MEDS: Isosorbide Mononitrate ER TAB* 30 MG PO SCH (08:18)
[2018-06-06] MEDS: Calcitriol CAP* 0.25 MCG PO SCH (08:18)
[2018-06-06] MEDS: Losartan TAB* 25 MG PO SCH (08:19)
[2018-06-06] MEDS: Gabapentin CAP(*) 100 MG PO SCH ×3 (08:19→20:50)
[2018-06-06] MEDS: Aspirin EC TAB* 81 MG TAB.EC PO SCH (08:19)
[2018-06-06] MEDS: Insulin LISPRO* 1 UNITS UNIT SUBCUT SCH ×4 (08:22→20:43)
[2018-06-06] MEDS: Furosemide TAB* 40 MG PO SCH ×2 (08:46→20:50)
--- NOTE | 2018-06-06 09:53 | PN ---
Progress Note - Progress Note Date of Service: 06/06/18 SOAP: Subjective: [Pt was seen in bed today sitting and eating breakfast. Pt states that he is doing better and feels that his pain is well controlled on pain medication. He denies any chest pain, SOB, Nausea, vomiting, palpitations, fevers or chills. ] Objective: [Gen:A&Ox3, NAD MSK, RLE: Dressing is c/d/i, Able to df/pf. No TTP along the calf. Able to wiggle exposed toes. ] Assessment: [S/P Right first MTP disarticulation ] Plan: [- Continue with heel WB in post op shoe Continue with current pain medication Discharge when ready per hospitalists Follow up with Dr. Whitaker in 10 days ]
[2018-06-06] MEDS: Cefepime 1 GM in Dextrose(*) 1 GM/50 ML BAG IV SCH (11:49)
[2018-06-06] MEDS ORDERED: Vancomycin(*) 1,000 MG in NS 0.9% 250 ML* 250 ML IVPB ONE (12:30)
--- NOTE | 2018-06-06 16:27 | PN ---
Subjective Date of Service: 06/06/18 Interval History: HOSPITALIST PROGRESS NOTE Patient seen and examined at bedside. Care reviewed and d/w Darlene Abrams RN. He feels better today. Pain is well controlled, denies N/V, tolerating diet well. Family History: Unchanged from Admission Social History: Unchanged from Admission Past Medical History: Unchanged from Admission Objective Active Medications: Acetaminophen (Tylenol Tab*) 650 mg PO Q6H PRN PRN Reason: pain/fever Last Admin: 06/05/18 00:32 Dose: 650 mg Hydrocodone Bitart/Acetaminophen ([place] 5-325 Tab*) 1 tab PO Q4H PRN PRN Reason: PAIN Last Admin: 06/06/18 12:34 Dose: 1 tab Albuterol (Ventolin Hfa Inhaler*) 2 puff INH Q4H PRN PRN Reason: SOB/WHEEZING Last Admin: 06/04/18 13:49 Dose: 2 puff Amlodipine Besylate (Norvasc Tab*) 10 mg PO DAILY [facility] Last Admin: 06/06/18 08:18 Dose: 10 mg Aspirin (Aspirin Ec Tab*) 81 mg PO DAILY [facility] Last Admin: 06/06/18 08:19 Dose: 81 mg Calcitriol (Rocaltrol Cap*) 0.25 mcg PO DAILY [facility] Last Admin: 06/06/18 08:18 Dose: 0.25 mcg Cholecalciferol (Vitamin D Tab*) 3,000 units PO DAILY [facility] Last Admin: 06/06/18 08:18 Dose: 3,000 units Dextrose (D50w Syringe 50 Ml*) 12.5 gm IV PUSH .FOR FS < 60 - SS PRN PRN Reason: FS < 60 Furosemide (Lasix Tab*) 40 mg PO BID [facility] Last Admin: 06/06/18 08:46 Dose: 40 mg Gabapentin (Neurontin Cap(*)) 100 mg PO TID [facility] Last Admin: 06/06/18 12:34 Dose: 100 mg Heparin Sodium (Porcine) (Heparin Vial(*)) 5,000 units SUBCUT Q8HR [facility] Last Admin: 06/06/18 12:36 Dose: 5,000 units Cefepime HCl (Maxipime 1 Gm In Dextrose Duplex (*)) 1 gm in 50 mls @ 100 mls/ hr IV Q12H [facility] Last Admin: 11/24/18 11:49 Dose: 100 mls/hr Insulin Human Lispro (Humalog*) 0 units SUBCUT ACHS [facility]; Protocol Last Admin: 06/06/18 12:36 Dose: 3 units Isosorbide Mononitrate (Imdur Er Tab*) 30 mg PO DAILY [facility] Last Admin: 06/06/18 08:18 Dose: 30 mg Levothyroxine Sodium (Synthroid Tab*) 25 mcg PO DAILY [facility] Last Admin: 06/06/18 08:18 Dose: 25 mcg Losartan Potassium (Cozaar Tab*) 25 mg PO DAILY [facility] Last Admin: 06/06/18 08:19 Dose: 25 mg Metolazone (Zaroxolyn Tab*) 5 mg PO DAILY [facility] Last Admin: 06/06/18 08:18 Dose: 5 mg Metoprolol Succinate (Toprol Xl Tab*) 125 mg PO DAILY [facility] Last Admin: 06/06/18 08:17 Dose: 125 mg Morphine Sulfate (Morphine Inj ((Syringe))*) 2 mg IV Q1H PRN PRN Reason: SEVERE PAIN Last Admin: 06/06/18 03:25 Dose: 2 mg Pharmacy Consult (Vancomycin Per Pharmacy*) 1 note FOLLOW UP .VANC PER PHARMACY [facility] Pharmacy Consult (Vancomycin Random Level*) 1 note FOLLOW UP ONCE ONE Stop: 06/07/18 06:01 Vital Signs - 8 hr 06/06/18 06/06/18 06/06/18 11:21 11:52 12:34 Temperature 98.3 F Pulse Rate 61 Respiratory 18 18 18 Rate Blood Pressure 115/55 (mmHg) O2 Sat by Pulse 99 Oximetry 06/06/18 15:13 Temperature Pulse Rate Respiratory 22 Rate Blood Pressure (mmHg) O2 Sat by Pulse Oximetry Oxygen Devices in Use Now: None Appearance: Pleasant elderly gentleman sitting up in bed in [facility]. Eyes: No Scleral Icterus Ears/Nose/Mouth/Throat: Mucous Membranes Moist Neck: Trachea Midline Respiratory: Symmetrical Chest Expansion and Respiratory Effort, Clear to Auscultation Cardiovascular: RRR - Normal S1 and S2 Extremities: - - CDI to right foot, good capillary refill, no calf tenderness Neurological: Alert and Oriented x 3, NL Muscle Strength and Tone Result Diagrams: 06/06/18 05:47 06/06/18 05:47 Microbiology and Other Data: Microbiology 06/04/18 07:47 Aerobic Blood Culture - Preliminary Blood Venous Anaerobic Blood Culture - Preliminary No Growth Day 1 Blood MRSA/MSSA (PCR) - Final Mrsa Positive S.aureus Positive Assess/Plan/Problems-Billing Assessment: Mr Carrillo is a 62yo M with PMH of type 2 DM, diabetic neuropathy and gastroparesis, HTN HLD, gout, anxiety, nephrotic syndrome with CKD stage 3, diastolic CHF, who presented to ED with c/o 2 months of right hallux wound, pain , worsening with edema and erythema, found to have hallux osteomyelitis. - Patient Problems (1) MRSA (methicillin resistant Staphylococcus aureus) septicemia Comment: - Patient spiked fever yesterday and blood culture is growing MRSA. - Source is toe osteomyelitis. - Transthoracic echocardiogram negative for vegetations - will d/w ID if transesophageal echo indicated. - Repeat blood cultures pending. (2) Toe osteomyelitis, right Comment: - With diabetic foot infection. - Ortho input appreciated - s/p 1st MTP disarticulation 06/05/18. Heel WB with post op shoe as tolerated. - PT evaluation. - Continue Vancomycin. (3) Diabetes Comment: - A1c is 6.8. - Continue Lispro SS. (4) HTN (hypertension) Comment: - Controlled. - Continue metoprolol, amlodipine, Imdur, losartan, diuretics. (5) HLD (hyperlipidemia) Comment: - Continue atorvastatin. (6) Nephrotic syndrome Comment: - Continue Furosemide and metolazone. (7) DVT prophylaxis Comment: - SQ heparin. (8) Full code status Status and Disposition: Inpatient for management of toe osteomyelitis / diabetic foot infection / MRSA septicemia failed outpatient therapy.
[2018-06-07] MEDS: HYDROcodone/ACETAMIN 5-325 MG* 1 TAB PO PRN ×5 (00:35→21:08)
[2018-06-07] MEDS: Heparin VIAL(*) 5000 UNITS/ML VIAL (FIVE THOUSAND) SUBCUT SCH ×3 (05:09→20:58)
[2018-06-07] MEDS ORDERED: Vancomycin Random Level* NOTE FOLLOW UP ONE (06:00)
[2018-06-07 06:42] LABS: EGFR Non-African American 17.5 (>60)
[2018-06-07] MEDS: Insulin LISPRO* 1 UNITS UNIT SUBCUT SCH ×4 (08:06→20:59)
[2018-06-07] MEDS: Furosemide TAB* 40 MG PO SCH ×2 (08:56→20:59)
[2018-06-07] MEDS: Gabapentin CAP(*) 100 MG PO SCH ×3 (08:56→20:58)
[2018-06-07] MEDS: Losartan TAB* 25 MG PO SCH (08:56)
[2018-06-07] MEDS: Cholecalciferol TAB* 1000 UNITS PO SCH (08:57)
[2018-06-07] MEDS: Aspirin EC TAB* 81 MG TAB.EC PO SCH (08:57)
[2018-06-07] MEDS: amLODIPine TAB* 5 MG PO SCH (08:57)
[2018-06-07] MEDS: Metolazone TAB* 5 MG PO SCH (08:58)
[2018-06-07] MEDS: Metoprolol Succinate XL TAB* 25 MG PO SCH (08:58)
[2018-06-07] MEDS: Metoprolol Succinate XL TAB* 100 MG PO SCH (08:58)
[2018-06-07] MEDS: Isosorbide Mononitrate ER TAB* 30 MG PO SCH (08:58)
[2018-06-07] MEDS: Levothyroxine TAB* 25 MCG TAB PO SCH (08:58)
[2018-06-07] MEDS: Calcitriol CAP* 0.25 MCG PO SCH (08:59)
--- NOTE | 2018-06-07 09:07 | PN ---
Progress Note - Progress Note Date of Service: 06/07/18 SOAP: Subjective: Pt was seen in bed today. Pt states that he is doing better and feels that his pain is well controlled on pain medication. He denies any chest pain, SOB, Nausea, vomiting, palpitations, fevers or chills. ] Objective: [Gen:A&Ox3, NAD MSK, RLE: Dressing is c/d/i, Able to df/pf. No TTP along the calf. Able to wiggle exposed toes. ] Vital Signs Temp 97.8 F 06/07/18 08:22 Pulse 73 06/07/18 08:22 Resp 18 06/07/18 08:56 BP 135/54 06/07/18 08:22 Pulse Ox 94 06/07/18 08:22 Intake & Output 06/06/18 06/07/18 06/07/18 18:59 06:59 18:59 Intake Total 1595 240 480 Output Total 825 750 Balance 770 -510 480 Weight 233 lb Intake: IV Fluids 387 ABX - CEFEPIME 52 ABX - VANCOMYCIN 265 NS 70 IVPB 58 ABX - CEFEPIME 58 Oral 1150 240 480 Output: Urine 825 750 Other: Estimated Void Medium Large # Bowel Movements 0 # Voids 1 1 Assessment: [S/P Right first MTP disarticulation ] Plan: [- Continue with heel WB in post op shoe Continue with current pain medication Discharge when ready per hospitalists Follow up with Dr. Whitaker in 10 days Keep splint on and dry until post op visit ]
--- NOTE | 2018-06-07 15:11 | PN ---
Subjective Date of Service: 06/07/18 Interval History: HOSPITALIST PROGRESS NOTE Patient seen and examined at bedside. Care reviewed and d/w Darlene Abrams RN. He feels well today, pain is controlled. Offers no complaints. Family History: Unchanged from Admission Social History: Unchanged from Admission Past Medical History: Unchanged from Admission Objective Active Medications: Acetaminophen (Tylenol Tab*) 650 mg PO Q6H PRN PRN Reason: pain/fever Last Admin: 06/05/18 00:32 Dose: 650 mg Hydrocodone Bitart/Acetaminophen ([place] 5-325 Tab*) 1 tab PO Q4H PRN PRN Reason: PAIN Last Admin: 06/07/18 13:20 Dose: 1 tab Albuterol (Ventolin Hfa Inhaler*) 2 puff INH Q4H PRN PRN Reason: SOB/WHEEZING Last Admin: 06/04/18 13:49 Dose: 2 puff Amlodipine Besylate (Norvasc Tab*) 10 mg PO DAILY [facility] Last Admin: 06/07/18 08:57 Dose: 10 mg Aspirin (Aspirin Ec Tab*) 81 mg PO DAILY [facility] Last Admin: 06/07/18 08:57 Dose: 81 mg Calcitriol (Rocaltrol Cap*) 0.25 mcg PO DAILY [facility] Last Admin: 06/07/18 08:59 Dose: 0.25 mcg Cholecalciferol (Vitamin D Tab*) 3,000 units PO DAILY [facility] Last Admin: 06/07/18 08:57 Dose: 3,000 units Dextrose (D50w Syringe 50 Ml*) 12.5 gm IV PUSH .FOR FS < 60 - SS PRN PRN Reason: FS < 60 Furosemide (Lasix Tab*) 40 mg PO BID [facility] Last Admin: 06/07/18 08:56 Dose: 40 mg Gabapentin (Neurontin Cap(*)) 100 mg PO TID [facility] Last Admin: 06/07/18 13:20 Dose: 100 mg Heparin Sodium (Porcine) (Heparin Vial(*)) 5,000 units SUBCUT Q8HR [facility] Last Admin: 06/07/18 13:21 Dose: 5,000 units Insulin Human Lispro (Humalog*) 0 units SUBCUT ACHS [facility]; Protocol Last Admin: 06/07/18 12:33 Dose: Not Given Isosorbide Mononitrate (Imdur Er Tab*) 30 mg PO DAILY [facility] Last Admin: 06/07/18 08:58 Dose: 30 mg Levothyroxine Sodium (Synthroid Tab*) 25 mcg PO DAILY [facility] Last Admin: 06/07/18 08:58 Dose: 25 mcg Losartan Potassium (Cozaar Tab*) 25 mg PO DAILY [facility] Last Admin: 06/07/18 08:56 Dose: 25 mg Metolazone (Zaroxolyn Tab*) 5 mg PO DAILY [facility] Last Admin: 06/07/18 08:58 Dose: 5 mg Metoprolol Succinate (Toprol Xl Tab*) 100 mg PO DAILY [facility] Last Admin: 06/07/18 08:58 Dose: 100 mg Metoprolol Succinate (Toprol Xl Tab*) 25 mg PO DAILY [facility] Last Admin: 06/07/18 08:58 Dose: 25 mg Morphine Sulfate (Morphine Inj ((Syringe))*) 2 mg IV Q1H PRN PRN Reason: SEVERE PAIN Last Admin: 06/06/18 03:25 Dose: 2 mg Pharmacy Consult (Vancomycin Per Pharmacy*) 1 note FOLLOW UP .VANC PER PHARMACY [facility] Pharmacy Consult (Vancomycin Random Level*) 1 note FOLLOW UP ONCE ONE Stop: 06/08/18 06:01 Vital Signs - 8 hr 06/07/18 06/07/18 06/07/18 08:00 08:06 08:22 Temperature 97.8 F Pulse Rate 73 Respiratory 22 22 16 Rate Blood Pressure 135/54 (mmHg) O2 Sat by Pulse 95 94 Oximetry 06/07/18 06/07/18 06/07/18 08:56 10:48 12:50 Temperature 98.2 F Pulse Rate 62 Respiratory 18 24 16 Rate Blood Pressure 119/62 (mmHg) O2 Sat by Pulse 96 Oximetry 06/07/18 13:20 Temperature Pulse Rate Respiratory 16 Rate Blood Pressure (mmHg) O2 Sat by Pulse Oximetry Oxygen Devices in Use Now: None Appearance: Pleasant gentleman sitting up in bed in NAD Eyes: No Scleral Icterus Ears/Nose/Mouth/Throat: Mucous Membranes Moist Neck: Trachea Midline Respiratory: Symmetrical Chest Expansion and Respiratory Effort, Clear to Auscultation Cardiovascular: RRR - Normal S1 and S2 Extremities: - - CDI to right foot Neurological: Alert and Oriented x 3, NL Muscle Strength and Tone Result Diagrams: 06/06/18 05:47 06/07/18 05:34 Microbiology and Other Data: Microbiology 06/04/18 07:47 Aerobic Blood Culture - Preliminary Blood Venous Anaerobic Blood Culture - Preliminary No Growth Day 1 Blood MRSA/MSSA (PCR) - Final Mrsa Positive S.aureus Positive Assess/Plan/Problems-Billing Assessment: Mr Carrillo is a 62yo M with PMH of type 2 DM, diabetic neuropathy and gastroparesis, HTN HLD, gout, anxiety, nephrotic syndrome with CKD stage 3, diastolic CHF, who presented to ED with c/o 2 months of right hallux wound, pain , worsening with edema and erythema, found to have hallux osteomyelitis. - Patient Problems (1) MRSA (methicillin resistant Staphylococcus aureus) septicemia Comment: - Patient spiked fever on admission and blood culture grew MRSA. - Source is toe osteomyelitis. - Transthoracic echocardiogram negative for vegetations - will d/w ID if transesophageal echo indicated. - Repeat blood cultures show no growth so far. (2) Toe osteomyelitis, right Comment: - With diabetic foot infection. - Ortho input appreciated - s/p 1st MTP disarticulation 06/05/18. Heel WB with post op shoe as tolerated. - PT evaluation. - Continue Vancomycin. (3) Diabetes Comment: - A1c is 6.8. - Continue Lispro SS. (4) HTN (hypertension) Comment: - Controlled. - Continue metoprolol, amlodipine, Imdur, losartan, diuretics. (5) HLD (hyperlipidemia) Comment: - Continue atorvastatin. (6) Nephrotic syndrome Comment: - Continue Furosemide and metolazone. (7) DVT prophylaxis Comment: - SQ heparin. (8) Full code status Status and Disposition: Inpatient for management of toe osteomyelitis / diabetic foot infection / MRSA septicemia failed outpatient therapy.
--- NOTE | 2018-06-08 03:45 | OP ---
DATE OF OPERATION: 06/05/18 - ROOM #422 DATE OF : 57 SURGEON: Bhaskar Whitaker MD PHP MYSQL DEVELOPER: Gena Peterson PA-C. PRE-OP DIAGNOSES: Right first toe infection, osteomyelitis. POST-OP DIAGNOSES: Right first toe infection, osteomyelitis. OPERATIVE PROCEDURE: Disarticulation, right first MTP joint. DESCRIPTION OF PROCEDURE: The patient was taken to the operating room where a transverse elliptical incision was made over the base of the first proximal phalanx. We dissected proximally to disarticulate the MTP joint and the toe sent to Pathology. Local cultures were sent. We dropped the tourniquet to obtain hemostasis. We irrigated thoroughly closing with dorsal to plantar deep 2-0 Vicryl sutures and Prolene for the skin and a compression dressing applied. [id number]/[facility] #: [id number] MTDHeather
[2018-06-08] MEDS: HYDROcodone/ACETAMIN 5-325 MG* 1 TAB PO PRN ×3 (05:54→21:34)
[2018-06-08] MEDS: Heparin VIAL(*) 5000 UNITS/ML VIAL (FIVE THOUSAND) SUBCUT SCH ×3 (05:54→21:34)
[2018-06-08] MEDS ORDERED: Vancomycin Random Level* NOTE FOLLOW UP ONE (06:00)
[2018-06-08 07:11] LABS: EGFR Non-African American 15.4 (>60)
[2018-06-08] MEDS: Insulin LISPRO* 1 UNITS UNIT SUBCUT SCH ×4 (09:42→20:06)
[2018-06-08] MEDS: Metoprolol Succinate XL TAB* 25 MG PO SCH (09:57)
[2018-06-08] MEDS: Metolazone TAB* 5 MG PO SCH (09:57)
[2018-06-08] MEDS: Isosorbide Mononitrate ER TAB* 30 MG PO SCH (09:57)
[2018-06-08] MEDS: Metoprolol Succinate XL TAB* 100 MG PO SCH (09:57)
[2018-06-08] MEDS: Levothyroxine TAB* 25 MCG TAB PO SCH (09:57)
[2018-06-08] MEDS: Cholecalciferol TAB* 1000 UNITS PO SCH (09:57)
[2018-06-08] MEDS: Aspirin EC TAB* 81 MG TAB.EC PO SCH (09:58)
[2018-06-08] MEDS: Gabapentin CAP(*) 100 MG PO SCH ×3 (09:58→20:01)
[2018-06-08] MEDS: amLODIPine TAB* 5 MG PO SCH (09:58)
[2018-06-08] MEDS: Calcitriol CAP* 0.25 MCG PO SCH (09:58)
[2018-06-08] MEDS: Furosemide TAB* 40 MG PO SCH ×2 (09:58→20:01)
[2018-06-08] MEDS: Losartan TAB* 25 MG PO SCH (09:58)
[2018-06-08] MEDS ORDERED: Vancomycin(*) 750 MG in NS 0.9% 250 ML* 250 ML IVPB ONE (11:00)
--- NOTE | 2018-06-08 14:08 | PN ---
Subjective Date of Service: 06/08/18 Interval History: HOSPITALIST PROGRESS NOTE Patient seen and examined at bedside. Care reviewed and d/w Kianna Field RN. He offers no complaints today. Pain is controlled. Still feels a little unsteady with heel WB and walker. Family History: Unchanged from Admission Social History: Unchanged from Admission Past Medical History: Unchanged from Admission Objective Active Medications: Acetaminophen (Tylenol Tab*) 650 mg PO Q6H PRN PRN Reason: pain/fever Last Admin: 06/05/18 00:32 Dose: 650 mg Hydrocodone Bitart/Acetaminophen ([place] 5-325 Tab*) 1 tab PO Q4H PRN PRN Reason: PAIN Last Admin: 06/08/18 05:54 Dose: 1 tab Albuterol (Ventolin Hfa Inhaler*) 2 puff INH Q4H PRN PRN Reason: SOB/WHEEZING Last Admin: 06/04/18 13:49 Dose: 2 puff Amlodipine Besylate (Norvasc Tab*) 10 mg PO DAILY [facility] Last Admin: 06/08/18 09:58 Dose: 10 mg Aspirin (Aspirin Ec Tab*) 81 mg PO DAILY [facility] Last Admin: 06/08/18 09:58 Dose: 81 mg Calcitriol (Rocaltrol Cap*) 0.25 mcg PO DAILY [facility] Last Admin: 06/08/18 09:58 Dose: 0.25 mcg Cholecalciferol (Vitamin D Tab*) 3,000 units PO DAILY [facility] Last Admin: 06/08/18 09:57 Dose: 3,000 units Dextrose (D50w Syringe 50 Ml*) 12.5 gm IV PUSH .FOR FS < 60 - SS PRN PRN Reason: FS < 60 Furosemide (Lasix Tab*) 40 mg PO BID [facility] Last Admin: 06/08/18 09:58 Dose: 40 mg Gabapentin (Neurontin Cap(*)) 100 mg PO TID [facility] Last Admin: 06/08/18 09:58 Dose: 100 mg Heparin Sodium (Porcine) (Heparin Vial(*)) 5,000 units SUBCUT Q8HR [facility] Last Admin: 06/08/18 05:54 Dose: 5,000 units Linezolid (Zyvox 600 Mg Ivpremix(*)) 600 mg in 300 mls @ 300 mls/hr IVPB Q12H [facility] Insulin Human Lispro (Humalog*) 0 units SUBCUT ACHS [facility]; Protocol Last Admin: 06/08/18 09:42 Dose: Not Given Isosorbide Mononitrate (Imdur Er Tab*) 30 mg PO DAILY [facility] Last Admin: 06/08/18 09:57 Dose: 30 mg Levothyroxine Sodium (Synthroid Tab*) 25 mcg PO DAILY@0600 [facility] Losartan Potassium (Cozaar Tab*) 25 mg PO DAILY [facility] Last Admin: 06/08/18 09:58 Dose: 25 mg Metolazone (Zaroxolyn Tab*) 5 mg PO DAILY@0830 [facility] Metoprolol Succinate (Toprol Xl Tab*) 100 mg PO DAILY [facility] Last Admin: 06/08/18 09:57 Dose: 100 mg Metoprolol Succinate (Toprol Xl Tab*) 25 mg PO DAILY [facility] Last Admin: 06/08/18 09:57 Dose: 25 mg Morphine Sulfate (Morphine Inj ((Syringe))*) 2 mg IV Q1H PRN PRN Reason: SEVERE PAIN Last Admin: 06/06/18 03:25 Dose: 2 mg Vital Signs - 8 hr 06/08/18 06/08/18 06/08/18 08:00 08:32 09:58 Temperature 98.6 F Pulse Rate 68 Respiratory 19 13 16 Rate Blood Pressure 134/64 (mmHg) O2 Sat by Pulse 97 97 Oximetry Oxygen Devices in Use Now: None Appearance: Pleasant gentleman sitting up in bed in NAD. Eyes: No Scleral Icterus Ears/Nose/Mouth/Throat: Mucous Membranes Moist Neck: Trachea Midline Respiratory: Symmetrical Chest Expansion and Respiratory Effort, Clear to Auscultation Cardiovascular: RRR - Normal S1 and S2 Extremities: - - CDI to right foot Neurological: Alert and Oriented x 3, NL Muscle Strength and Tone Result Diagrams: 06/06/18 05:47 06/08/18 06:35 Microbiology and Other Data: Microbiology 06/04/18 07:47 Aerobic Blood Culture - Preliminary Blood Venous Anaerobic Blood Culture - Preliminary No Growth Day 1 Blood MRSA/MSSA (PCR) - Final Mrsa Positive S.aureus Positive Assess/Plan/Problems-Billing Assessment: Mr Carrillo is a 62yo M with PMH of type 2 DM, diabetic neuropathy and gastroparesis, HTN HLD, gout, anxiety, nephrotic syndrome with CKD stage 3, diastolic CHF, who presented to ED with c/o 2 months of right hallux wound, pain , worsening with edema and erythema, found to have hallux osteomyelitis. - Patient Problems (1) MRSA (methicillin resistant Staphylococcus aureus) septicemia Comment: - Patient spiked fever on admission and blood culture grew MRSA. - Source is toe osteomyelitis. - Transthoracic echocardiogram negative for vegetations - will d/w ID if transesophageal echo indicated. - Repeat blood cultures show no growth so far. (2) Toe osteomyelitis, right Comment: - With diabetic foot infection. - Ortho input appreciated - s/p 1st MTP disarticulation 06/05/18. Heel WB with post op shoe as tolerated. - PT evaluation. - ID recommended switching Vanco to Linezolide. (3) Diabetes Comment: - A1c is 6.8. - Continue Lispro SS. (4) HTN (hypertension) Comment: - Controlled. - Continue metoprolol, amlodipine, Imdur, losartan, diuretics. (5) HLD (hyperlipidemia) Comment: - Continue atorvastatin. (6) Nephrotic syndrome Comment: - Continue Furosemide and metolazone. (7) DVT prophylaxis Comment: - SQ heparin. (8) Full code status Status and Disposition: Inpatient for management of toe osteomyelitis / diabetic foot infection / MRSA septicemia failed outpatient therapy.
--- NOTE | 2018-06-08 14:23 | CONS ---
CONSULTATION REPORT: DATE OF CONSULT: 06/08/18 REQUESTING PHYSICIAN: Dr. Marx. CONSULTING SERVICE: Infectious Disease. REASON FOR CONSULT: Foot infection. IMPRESSION: 1. Acute osteomyelitis, right great toe due to Methicillin-resistant Staphylococcus aureus with Methicillin-resistant Staphylococcus aureus in 1 of 4 blood culture bottles, cleared on followup after antibiotics. Now status post great toe amputation, which he tolerated well. He had only 1 of 4 bottles growing Staph. A transthoracic echocardiogram was benign. He has no new murmur and no peripheral stigmata of infective endocarditis. I think his pretest probability for infective endocarditis is low and does not require transesophageal echocardiogram. 2. Nephrotic syndrome. 3. Acute kidney injury, question acute tubular necrosis in contribution of vancomycin. 4. Diabetes with neuropathy and gastroparesis. RECOMMENDATIONS: We will continue his IV antibiotics. Because of his increase in creatinine, we will stop the vancomycin and place him on linezolid 600 mg IV twice daily. He will have 10 days of IV antibiotics from the time of his negative blood cultures, which were on 06/06/18. HISTORY OF PRESENT ILLNESS: This is a 62-year-old male with diabetes, nephrotic syndrome, and a right great toe ulceration, which has been present about 6 weeks. He was treated with oral antibiotics as an outpatient for a couple of weeks and following with his primary. He was not having much improvement and had worsening redness and started having a little bit of pain, so he came to the hospital on 06/04/18. The blood cultures drawn, that 1 of 4 growing MRSA. He had a fever, he was started on vancomycin. He had amputation of the great toe on 06/05/18, which he tolerated well. Followup blood cultures on the 06/05/18 and 06/06/18 are negative. He has had some malaise, but energy is getting better. He is putting weight on the foot. His creatinine was 2.4 on admission and is 4 now. BUN was 40, it is 65. He is continued on his diuretic regimen for nephrotic syndrome. He is continuing to pee without irrigation or pain. PAST MEDICAL HISTORY: 1. Nephrotic syndrome. 2. Diabetes with neuropathy, nephropathy, and gastroparesis. 3. Obesity. 4. Hypertension. 5. Hyperlipidemia. 6. Anxiety. 7. Gout. 8. Status post appendectomy. MEDICATIONS: 1. Tylenol. 2. Amlodipine. 3. Aspirin. 4. Calcitriol. 5. Cholecalciferol. 6. Lasix. 7. Gabapentin. 8. Heparin subcutaneous injection. 9. Imdur. 10. Levothyroxine. 11. Losartan. 12. Metolazone. 13. Vancomycin. ALLERGIES: LISINOPRIL caused dyspnea and NIACIN caused rash. FAMILY HISTORY: Father had [place] and asthma. SOCIAL HISTORY: He is a , had been in the [employer] sometime in [place]. He is a nonsmoker. No travel. REVIEW OF SYSTEMS: A 14-point review was all negative, except as noted above in the history of present illness. PHYSICAL EXAM: Vital Signs: Temperature 37, heart rate 70, respiratory rate 13 , blood pressure 134/64, oxygen saturation 97% on room air. In general, he is alert, not in distress. Neurologic: He is oriented x3, follows commands. He has decreased sensation to light touch in both feet. HEENT: There is no conjunctival hemorrhage. Oropharynx without lesions. Neck is supple without mass. Heart is regular rate and rhythm without murmurs, rubs, or gallops. Lungs are clear to auscultation bilaterally. Abdomen: Soft, nontender, and nondistended. There is bowel sounds present. Skin: There is no rash or splinter hemorrhage. Musculoskeletal: No spinous tenderness to palpation. The right foot is wrapped. There is 2+ bilateral lower extremity edema, which is pitting. LABORATORY DATA: White blood cell count 11, hemoglobin 9, platelets 263, MCV of 76. Creatinine is 3.99, BUN 65. The vancomycin trough was 19. Please see impressions and recommendations outlined above, which I have discussed with Dr. Marx. Thanks for asking me to see Mr. Carrillo in consultation. [id number]/[facility] #: [id number] [facility] HOSPITALHeather
--- NOTE | 2018-06-08 15:34 | PN ---
Progress Note - Progress Note Date of Service: 06/08/18 SOAP: Subjective: [] Patient was seen and examined at bedside. He denies pain of his RLE. Objective: []General: NAD RLE: Dressing CDI. Able to wiggle exposed toes. Capillary refill less than two seconds distally. BL calves with 2+ pitting edema, no erythema or palpable cords Assessment: []PRE-OP DIAGNOSES: Right first toe infection, osteomyelitis. OPERATIVE PROCEDURE: Disarticulation, right first MTP joint. Plan: []Appreciate ID consult. Needs 10 days of linezolid 600 mg IV BID Heel WB in post op shoe FU Dr Whitaker next week. Keep dressing CDI Vital Signs Temp 98.2 F 06/08/18 12:27 Pulse 59 06/08/18 12:27 Resp 16 06/08/18 14:34 BP 131/68 06/08/18 12:27 Pulse Ox 94 06/08/18 12:27 Intake & Output 06/07/18 06/08/18 06/08/18 18:59 06:59 18:59 Intake Total 1800 520 600 Output Total 1100 Balance 1800 -580 600 Weight 230 lb 9.6 oz Intake: Oral 1800 520 600 Output: Urine 1100 Other: Estimated Void Large # Bowel Movements 0 # Voids 1 Laboratory Last Values WBC 11.1 10^3/ul (3.5-10.8) H 06/06/18 05:47 RBC 3.58 10^6/ul (4.00-5.40) L 06/06/18 05:47 Hgb 9.0 g/dl (14.0-18.0) L 06/06/18 05:47 Hct 27 % (42-52) L 06/06/18 05:47 MCV 76 fL (80-94) L 06/06/18 05:47 MCH 25 pg (27-31) L 06/06/18 05:47 MCHC 33 g/dl (31-36) 06/06/18 05:47 RDW 15 % (10.5-15) 06/06/18 05:47 Plt Count 263 10^3/ul (150-450) 06/06/18 05:47 MPV 8.4 fL (7.4-10.4) 06/06/18 05:47 Neut % (Auto) 76.6 % (38-83) 06/06/18 05:47 Lymph % (Auto) 9.1 % (25-47) L 06/06/18 05:47 [place] % (Auto) 12.0 % (0-7) H 06/06/18 05:47 Eos % (Auto) 1.3 % (0-6) 06/06/18 05:47 Baso % (Auto) 1.0 % (0-2) 06/06/18 05:47 Absolute Neuts (auto) 8.5 10^3/ul (1.5-7.7) H 06/06/18 05:47 Absolute Lymphs (auto) 1.0 10^3/ul (1.0-4.8) 06/06/18 05:47 Absolute Monos (auto) 1.3 10^3/ul (0-0.8) H 06/06/18 05:47 Absolute Eos (auto) 0.1 10^3/ul (0-0.6) 06/06/18 05:47 Absolute Basos (auto) 0.1 10^3/ul (0-0.2) 06/06/18 05:47 Absolute Nucleated RBC 0 10^3/ul 06/06/18 05:47 Nucleated RBC % 0.1 06/06/18 05:47 ESR 120 mm/Hr (0-20) H 06/06/18 05:47 INR (Anticoag Therapy) 1.24 (0.77-1.02) H 06/05/18 08:26 APTT 28.4 seconds (26.0-36.3) 06/05/18 08:26 Sodium 136 mmol/L (135-145) 06/06/18 05:47 Potassium 4.4 mmol/L (3.5-5.0) 06/06/18 05:47 Chloride 105 mmol/L (101-111) 06/06/18 05:47 Carbon Dioxide 21 mmol/L (22-32) L 06/06/18 05:47 Anion Gap 10 mmol/L (2-11) 06/06/18 05:47 BUN 65 mg/dL (6-24) H 06/08/18 06:35 Creatinine 3.99 mg/dL (0.67-1.17) H 06/08/18 06:35 Est GFR ( Amer) 18.6 (>60) 06/08/18 06:35 Est GFR (Non-Af Amer) 15.4 (>60) 06/08/18 06:35 BUN/Creatinine Ratio 17.2 (8-20) 06/06/18 05:47 Glucose 132 mg/dL (70-100) H 06/06/18 05:47 POC Glucose (mg/dL) 124 mg/dL (70-100) H 06/08/18 11:46 Hemoglobin A1c 6.8 % (4.0-5.6) H 06/05/18 08:26 Lactic Acid 0.5 mmol/L (0.5-2.0) 06/04/18 07:47 Calcium 8.5 mg/dL (8.6-10.3) L 06/06/18 05:47 Total Bilirubin 0.30 mg/dL (0.2-1.0) 06/04/18 07:47 AST 12 U/L (13-39) L 06/04/18 07:47 ALT 21 U/L (7-52) 06/04/18 07:47 Alkaline Phosphatase 51 U/L (34-104) 06/04/18 07:47 C-Reactive Protein 224.22 mg/L (<8.01) H 06/06/18 05:47 Total Protein 7.7 g/dL (6.4-8.9) 06/04/18 07:47 Albumin 3.5 g/dL (3.2-5.2) 06/04/18 07:47 Globulin 4.2 g/dL (2-4) H 06/04/18 07:47 Albumin/Globulin Ratio 0.8 (1-3) L 06/04/18 07:47 Random Vancomycin 19.0 mcg/mL 06/08/18 06:35
[2018-06-09] MEDS: HYDROcodone/ACETAMIN 5-325 MG* 1 TAB PO PRN (01:16)
[2018-06-09] MEDS: Levothyroxine TAB* 25 MCG TAB PO SCH (05:43)
[2018-06-09] MEDS: Heparin VIAL(*) 5000 UNITS/ML VIAL (FIVE THOUSAND) SUBCUT SCH ×3 (05:43→21:20)
[2018-06-09] MEDS ORDERED: Vancomycin Random Level* NOTE FOLLOW UP ONE (06:00)
[2018-06-09 06:49] LABS: ABS Basophils 0.1 10^3/ul (0-0.2); ABS Eosinophils 0.3 10^3/ul (0-0.6); ABS Lymphocytes 1.4 10^3/ul (1.0-4.8); ABS Monocytes 0.7 10^3/ul (0-0.8); ABS Neutrophils 4.1 10^3/ul (1.5-7.7); ABS Nucleated RBC 0 10^3/ul; Hematocrit 27 % (42-52); Hemoglobin 8.9 g/dl (14.0-18.0); Lymphocyte % 20.9 %; Mean Corpuscular HGB Conc 33 g/dl (31-36); Mean Corpuscular Hemoglobin 25 pg (27-31); Mean Corpuscular Volume 76 fL (80-94); Mean Platelet Volume 8.5 fL (7.4-10.4); Nucleated Red Blood Cells % 0.1; Platelet Count 300 10^3/ul (150-450); Red Blood Count 3.57 10^6/ul (4.00-5.40); Red Cell Distribution Width 15 % (10.5-15); White Blood Count 6.6 10^3/ul (3.5-10.8)
[2018-06-09 07:06] LABS: EGFR Non-African American 15.6 (>60)
[2018-06-09] MEDS: Insulin LISPRO* 1 UNITS UNIT SUBCUT SCH ×4 (07:24→21:20)
[2018-06-09] MEDS: Cholecalciferol TAB* 1000 UNITS PO SCH (09:15)
[2018-06-09] MEDS: Calcitriol CAP* 0.25 MCG PO SCH (09:16)
[2018-06-09] MEDS: amLODIPine TAB* 5 MG PO SCH (09:16)
[2018-06-09] MEDS: Metolazone TAB* 5 MG PO SCH (09:17)
[2018-06-09] MEDS: Isosorbide Mononitrate ER TAB* 30 MG PO SCH (09:17)
[2018-06-09] MEDS: Gabapentin CAP(*) 100 MG PO SCH ×3 (09:17→21:18)
[2018-06-09] MEDS: Metoprolol Succinate XL TAB* 100 MG PO SCH (09:17)
[2018-06-09] MEDS: Metoprolol Succinate XL TAB* 25 MG PO SCH (09:17)
[2018-06-09] MEDS: Aspirin EC TAB* 81 MG TAB.EC PO SCH (09:17)
[2018-06-09] MEDS: Losartan TAB* 25 MG PO SCH (09:17)
[2018-06-09] MEDS: Linezolid 600 MG IVPREMIX(*) 600 MG/300 ML BAG IVPB SCH ×2 (09:20→21:29)
[2018-06-09] MEDS: Furosemide TAB* 40 MG PO SCH ×2 (10:11→21:19)
--- NOTE | 2018-06-09 12:26 | PN ---
Progress Note - Progress Note Date of Service: 06/09/18 SOAP: Subjective: []Patient seen and examined at bedside. No RLE pain. No other complaints today. Objective: []General: NAD RLE: Dressing CDI. Able to wiggle exposed toes. Capillary refill less than two seconds distally. Lacks sensation distally at baseline. R calf with 2+ pitting edema, no erythema, tenderness or palpable cords L calf with 1+ pitting edema, no erythema, tenderness or palpable cords Assessment: []PRE-OP DIAGNOSES: Right first toe infection, osteomyelitis. OPERATIVE PROCEDURE: Disarticulation, right first MTP joint. Plan: []Appreciate ID consult. Needs 10 days of linezolid 600 mg IV BID Heel WB in post op shoe FU Dr Whitaker next week. Keep dressing CDI Vital Signs Temp 97.9 F 06/09/18 07:58 Pulse 57 06/09/18 07:58 Resp 16 06/09/18 12:15 BP 144/68 06/09/18 07:58 Pulse Ox 99 06/09/18 07:58 Intake & Output 06/08/18 06/09/18 06/09/18 18:59 06:59 18:59 Intake Total 1750 0 Output Total 750 500 Balance 1000 -500 Weight 235 lb 1.6 oz Intake: Oral 1750 0 Output: Urine 750 500 Other: Estimated Void Small # Bowel Movements 0 # Voids 1 Laboratory Last Values WBC 6.6 10^3/ul (3.5-10.8) 06/09/18 06:22 RBC 3.57 10^6/ul (4.00-5.40) L 06/09/18 06:22 Hgb 8.9 g/dl (14.0-18.0) L 06/09/18 06:22 Hct 27 % (42-52) L 06/09/18 06:22 MCV 76 fL (80-94) L 06/09/18 06:22 MCH 25 pg (27-31) L 06/09/18 06:22 MCHC 33 g/dl (31-36) 06/09/18 06:22 RDW 15 % (10.5-15) 06/09/18 06:22 Plt Count 300 10^3/ul (150-450) 06/09/18 06:22 MPV 8.5 fL (7.4-10.4) 06/09/18 06:22 Neut % (Auto) 61.9 % 06/09/18 06:22 Lymph % (Auto) 20.9 % 06/09/18 06:22 Luna % (Auto) 11.3 % 06/09/18 06:22 Eos % (Auto) 5.0 % 06/09/18 06:22 Baso % (Auto) 0.9 % 06/09/18 06:22 Absolute Neuts (auto) 4.1 10^3/ul (1.5-7.7) 06/09/18 06:22 Absolute Lymphs (auto) 1.4 10^3/ul (1.0-4.8) 06/09/18 06:22 Absolute Monos (auto) 0.7 10^3/ul (0-0.8) 06/09/18 06:22 Absolute Eos (auto) 0.3 10^3/ul (0-0.6) 06/09/18 06:22 Absolute Basos (auto) 0.1 10^3/ul (0-0.2) 06/09/18 06:22 Absolute Nucleated RBC 0 10^3/ul 06/09/18 06:22 Nucleated RBC % 0.1 06/09/18 06:22 ESR 120 mm/Hr (0-20) H 06/06/18 05:47 INR (Anticoag Therapy) 1.24 (0.77-1.02) H 06/05/18 08:26 APTT 28.4 seconds (26.0-36.3) 06/05/18 08:26 Sodium 132 mmol/L (135-145) L 06/09/18 06:22 Potassium 5.0 mmol/L (3.5-5.0) 06/09/18 06:22 Chloride 102 mmol/L (101-111) 06/09/18 06:22 Carbon Dioxide 20 mmol/L (22-32) L 06/09/18 06:22 Anion Gap 10 mmol/L (2-11) 06/09/18 06:22 BUN 72 mg/dL (6-24) H 06/09/18 06:22 Creatinine 3.95 mg/dL (0.67-1.17) H 06/09/18 06:22 Est GFR ( Amer) 18.8 (>60) 06/09/18 06:22 Est GFR (Non-Af Amer) 15.6 (>60) 06/09/18 06:22 BUN/Creatinine Ratio 18.2 (8-20) 06/09/18 06:22 Glucose 84 mg/dL (70-100) 06/09/18 06:22 POC Glucose (mg/dL) 91 mg/dL (70-100) 06/09/18 07:18 Hemoglobin A1c 6.8 % (4.0-5.6) H 06/05/18 08:26 Lactic Acid 0.5 mmol/L (0.5-2.0) 06/04/18 07:47 Calcium 8.7 mg/dL (8.6-10.3) 06/09/18 06:22 Total Bilirubin 0.30 mg/dL (0.2-1.0) 06/04/18 07:47 AST 12 U/L (13-39) L 06/04/18 07:47 ALT 21 U/L (7-52) 06/04/18 07:47 Alkaline Phosphatase 51 U/L (34-104) 06/04/18 07:47 C-Reactive Protein 224.22 mg/L (<8.01) H 06/06/18 05:47 Total Protein 7.7 g/dL (6.4-8.9) 06/04/18 07:47 Albumin 3.5 g/dL (3.2-5.2) 06/04/18 07:47 Globulin 4.2 g/dL (2-4) H 06/04/18 07:47 Albumin/Globulin Ratio 0.8 (1-3) L 06/04/18 07:47 Random Vancomycin 16.5 mcg/mL 06/09/18 06:22
[2018-06-09] MEDS: Sodium Citrate/Citric Acid* 15 ML UDC PO SCH ×2 (13:06→21:15)
--- NOTE | 2018-06-09 14:10 | PN ---
Subjective Date of Service: 06/09/18 Interval History: HOSPITALIST PROGRESS NOTE Patient seen and examined at bedside. Care reviewed and d/w Brenda Praod RN. He offers no new complaints today, feels well. Family History: Unchanged from Admission Social History: Unchanged from Admission Past Medical History: Unchanged from Admission Objective Active Medications: Acetaminophen (Tylenol Tab*) 650 mg PO Q6H PRN PRN Reason: pain/fever Last Admin: 06/05/18 00:32 Dose: 650 mg Hydrocodone Bitart/Acetaminophen ([place] 5-325 Tab*) 1 tab PO Q4H PRN PRN Reason: PAIN Last Admin: 06/09/18 01:16 Dose: 1 tab Albuterol (Ventolin Hfa Inhaler*) 2 puff INH Q4H PRN PRN Reason: SOB/WHEEZING Last Admin: 06/04/18 13:49 Dose: 2 puff Amlodipine Besylate (Norvasc Tab*) 10 mg PO DAILY [facility] Last Admin: 06/09/18 09:16 Dose: 10 mg Aspirin (Aspirin Ec Tab*) 81 mg PO DAILY [facility] Last Admin: 06/09/18 09:17 Dose: 81 mg Calcitriol (Rocaltrol Cap*) 0.25 mcg PO DAILY [facility] Last Admin: 06/09/18 09:16 Dose: 0.25 mcg Cholecalciferol (Vitamin D Tab*) 3,000 units PO DAILY [facility] Last Admin: 06/09/18 09:15 Dose: 3,000 units Citric Acid/Sodium Citrate (Bicitra*) 15 ml PO TID [facility] Last Admin: 06/09/18 13:06 Dose: 15 ml Dextrose (D50w Syringe 50 Ml*) 12.5 gm IV PUSH .FOR FS < 60 - SS PRN PRN Reason: FS < 60 Furosemide (Lasix Tab*) 40 mg PO BID [facility] Last Admin: 06/09/18 10:11 Dose: 40 mg Gabapentin (Neurontin Cap(*)) 100 mg PO TID [facility] Last Admin: 06/09/18 13:06 Dose: 100 mg Heparin Sodium (Porcine) (Heparin Vial(*)) 5,000 units SUBCUT Q8HR [facility] Last Admin: 06/09/18 13:06 Dose: 5,000 units Linezolid (Zyvox 600 Mg Ivpremix(*)) 600 mg in 300 mls @ 300 mls/hr IVPB Q12H [facility] Last Admin: 06/09/18 09:20 Dose: 300 mls/hr Insulin Human Lispro (Humalog*) 0 units SUBCUT ACHS [facility]; Protocol Last Admin: 06/09/18 13:06 Dose: 2 units Isosorbide Mononitrate (Imdur Er Tab*) 30 mg PO DAILY [facility] Last Admin: 06/09/18 09:17 Dose: 30 mg Levothyroxine Sodium (Synthroid Tab*) 25 mcg PO DAILY@0600 [facility] Last Admin: 06/09/18 05:43 Dose: 25 mcg Losartan Potassium (Cozaar Tab*) 25 mg PO DAILY [facility] Last Admin: 06/09/18 09:17 Dose: 25 mg Metolazone (Zaroxolyn Tab*) 5 mg PO DAILY@0830 [facility] Last Admin: 06/09/18 09:17 Dose: 5 mg Metoprolol Succinate (Toprol Xl Tab*) 100 mg PO DAILY [facility] Last Admin: 06/09/18 09:17 Dose: 100 mg Metoprolol Succinate (Toprol Xl Tab*) 25 mg PO DAILY [facility] Last Admin: 06/09/18 09:17 Dose: 25 mg Morphine Sulfate (Morphine Inj ((Syringe))*) 2 mg IV Q1H PRN PRN Reason: SEVERE PAIN Last Admin: 06/06/18 03:25 Dose: 2 mg Vital Signs - 8 hr 06/09/18 06/09/18 06/09/18 07:25 07:58 09:17 Temperature 97.9 F Pulse Rate 57 Respiratory 18 14 16 Rate Blood Pressure 144/68 (mmHg) O2 Sat by Pulse 99 Oximetry 06/09/18 06/09/18 06/09/18 11:20 12:15 13:06 Temperature 97.6 F Pulse Rate 60 Respiratory 15 16 16 Rate Blood Pressure 134/81 (mmHg) O2 Sat by Pulse 99 Oximetry 06/09/18 13:45 Temperature Pulse Rate Respiratory Rate Blood Pressure (mmHg) O2 Sat by Pulse 99 Oximetry Oxygen Devices in Use Now: None Appearance: Pleasant gentleman sitting up in a chair in NAD. Eyes: No Scleral Icterus Ears/Nose/Mouth/Throat: Mucous Membranes Moist Neck: Trachea Midline Respiratory: Symmetrical Chest Expansion and Respiratory Effort, Clear to Auscultation Cardiovascular: RRR - Normal S1 and S2 Extremities: - - CDI to right foot Neurological: Alert and Oriented x 3, NL Muscle Strength and Tone Result Diagrams: 06/09/18 06:22 06/09/18 06:22 Microbiology and Other Data: Microbiology 06/04/18 07:47 Aerobic Blood Culture - Preliminary Blood Venous Anaerobic Blood Culture - Preliminary No Growth Day 1 Blood MRSA/MSSA (PCR) - Final Mrsa Positive S.aureus Positive Assess/Plan/Problems-Billing Assessment: Mr Carrillo is a 62yo M with PMH of type 2 DM, diabetic neuropathy and gastroparesis, HTN HLD, gout, anxiety, nephrotic syndrome with CKD stage 3, diastolic CHF, who presented to ED with c/o 2 months of right hallux wound, pain , worsening with edema and erythema, found to have hallux osteomyelitis. - Patient Problems (1) MRSA (methicillin resistant Staphylococcus aureus) septicemia Comment: - Patient spiked fever on admission and blood culture grew MRSA. - Source is toe osteomyelitis. - Transthoracic echocardiogram negative for vegetations - will d/w ID if transesophageal echo indicated. - Repeat blood cultures show no growth so far. (2) Toe osteomyelitis, right Comment: - With diabetic foot infection. - Ortho input appreciated - s/p 1st MTP disarticulation 06/05/18. Heel WB with post op shoe as tolerated. - ID input appreciated - plan for 10 days of Linezolide. (3) JAJA (acute kidney injury) Comment: - On CKD stage 3 - d/w Nephrology - agree with changing Vanco to Linezolide and recommends monitoring of renal function and buffering of acidosis with Bicitra. (4) Diabetes Comment: - A1c is 6.8. - Continue Lispro SS. (5) HTN (hypertension) Comment: - Controlled. - Continue metoprolol, amlodipine, Imdur, losartan, diuretics. (6) HLD (hyperlipidemia) Comment: - Continue atorvastatin. (7) Nephrotic syndrome Comment: - Continue Furosemide and metolazone. (8) DVT prophylaxis Comment: - SQ heparin. (9) Full code status Status and Disposition: Inpatient for management of toe osteomyelitis / diabetic foot infection / MRSA septicemia failed outpatient therapy. Will need KENYATTA. DIL updated at bedside.
[2018-06-10] MEDS: Levothyroxine TAB* 25 MCG TAB PO SCH (06:46)
[2018-06-10] MEDS: Heparin VIAL(*) 5000 UNITS/ML VIAL (FIVE THOUSAND) SUBCUT SCH ×3 (06:47→22:00)
[2018-06-10] MEDS: Morphine INJ* 2 MG/ML 1 ML SYRINGE (TWO MG - NEW SYRINGE VERSION) IV PRN ×2 (06:52→21:53)
[2018-06-10] MEDS: Insulin LISPRO* 1 UNITS UNIT SUBCUT SCH ×4 (08:08→22:12)
[2018-06-10] MEDS: Sodium Citrate/Citric Acid* 15 ML UDC PO SCH ×3 (08:18→21:56)
[2018-06-10] MEDS: Metolazone TAB* 5 MG PO SCH (08:18)
[2018-06-10] MEDS: Gabapentin CAP(*) 100 MG PO SCH ×3 (08:18→21:58)
[2018-06-10] MEDS: Furosemide TAB* 40 MG PO SCH ×2 (08:19→21:58)
[2018-06-10] MEDS: Cholecalciferol TAB* 1000 UNITS PO SCH (08:19)
[2018-06-10] MEDS: Isosorbide Mononitrate ER TAB* 30 MG PO SCH (08:19)
[2018-06-10] MEDS: Aspirin EC TAB* 81 MG TAB.EC PO SCH (08:19)
[2018-06-10] MEDS: Calcitriol CAP* 0.25 MCG PO SCH (08:19)
[2018-06-10] MEDS: Metoprolol Succinate XL TAB* 100 MG PO SCH (08:19)
[2018-06-10] MEDS: Losartan TAB* 25 MG PO SCH (08:19)
[2018-06-10] MEDS: amLODIPine TAB* 5 MG PO SCH (08:19)
[2018-06-10] MEDS: Metoprolol Succinate XL TAB* 25 MG PO SCH (08:19)
[2018-06-10] MEDS: Linezolid 600 MG IVPREMIX(*) 600 MG/300 ML BAG IVPB SCH ×2 (08:27→22:30)
[2018-06-10 10:27] LABS: EGFR Non-African American 16.9 (>60)
--- NOTE | 2018-06-10 18:02 | PN ---
Subjective Date of Service: 06/10/18 Interval History: Feels good, feels tired. No pain. His family is visiting. He has a good appetite, is eating well, moving his bowels, urinating. Family History: Unchanged from Admission Social History: Unchanged from Admission Past Medical History: Unchanged from Admission Objective Active Medications: Acetaminophen (Tylenol Tab*) 650 mg PO Q6H PRN PRN Reason: pain/fever Last Admin: 06/05/18 00:32 Dose: 650 mg Hydrocodone Bitart/Acetaminophen ([place] 5-325 Tab*) 1 tab PO Q4H PRN PRN Reason: PAIN Last Admin: 06/09/18 01:16 Dose: 1 tab Albuterol (Ventolin Hfa Inhaler*) 2 puff INH Q4H PRN PRN Reason: SOB/WHEEZING Last Admin: 06/04/18 13:49 Dose: 2 puff Amlodipine Besylate (Norvasc Tab*) 10 mg PO DAILY [facility] Last Admin: 06/10/18 08:19 Dose: 10 mg Aspirin (Aspirin Ec Tab*) 81 mg PO DAILY [facility] Last Admin: 06/10/18 08:19 Dose: 81 mg Calcitriol (Rocaltrol Cap*) 0.25 mcg PO DAILY [facility] Last Admin: 06/10/18 08:19 Dose: 0.25 mcg Cholecalciferol (Vitamin D Tab*) 3,000 units PO DAILY [facility] Last Admin: 06/10/18 08:19 Dose: 3,000 units Citric Acid/Sodium Citrate (Bicitra*) 15 ml PO TID [facility] Last Admin: 06/10/18 13:48 Dose: 15 ml Dextrose (D50w Syringe 50 Ml*) 12.5 gm IV PUSH .FOR FS < 60 - SS PRN PRN Reason: FS < 60 Furosemide (Lasix Tab*) 40 mg PO BID [facility] Last Admin: 06/10/18 08:19 Dose: 40 mg Gabapentin (Neurontin Cap(*)) 100 mg PO TID [facility] Last Admin: 06/10/18 13:48 Dose: 100 mg Heparin Sodium (Porcine) (Heparin Vial(*)) 5,000 units SUBCUT Q8HR [facility] Last Admin: 06/10/18 13:49 Dose: 5,000 units Linezolid (Zyvox 600 Mg Ivpremix(*)) 600 mg in 300 mls @ 300 mls/hr IVPB Q12H [facility] Last Admin: 06/10/18 08:27 Dose: 300 mls/hr Insulin Human Lispro (Humalog*) 0 units SUBCUT ACHS [facility]; Protocol Last Admin: 06/10/18 17:02 Dose: 2 units Isosorbide Mononitrate (Imdur Er Tab*) 30 mg PO DAILY [facility] Last Admin: 06/10/18 08:19 Dose: 30 mg Levothyroxine Sodium (Synthroid Tab*) 25 mcg PO DAILY@0600 [facility] Last Admin: 06/10/18 06:46 Dose: 25 mcg Losartan Potassium (Cozaar Tab*) 25 mg PO DAILY [facility] Last Admin: 06/10/18 08:19 Dose: 25 mg Metolazone (Zaroxolyn Tab*) 5 mg PO DAILY@0830 [facility] Last Admin: 06/10/18 08:18 Dose: 5 mg Metoprolol Succinate (Toprol Xl Tab*) 100 mg PO DAILY [facility] Last Admin: 06/10/18 08:19 Dose: 100 mg Metoprolol Succinate (Toprol Xl Tab*) 25 mg PO DAILY [facility] Last Admin: 06/10/18 08:19 Dose: 25 mg Morphine Sulfate (Morphine Inj ((Syringe))*) 2 mg IV Q1H PRN PRN Reason: SEVERE PAIN Last Admin: 06/10/18 06:52 Dose: 2 mg Vital Signs - 8 hr 06/10/18 06/10/18 06/10/18 11:18 13:48 14:16 Temperature 98.3 F Pulse Rate 55 Respiratory 18 16 16 Rate Blood Pressure 117/64 (mmHg) O2 Sat by Pulse 95 Oximetry 06/10/18 06/10/18 06/10/18 15:36 15:38 17:03 Temperature 98.5 F 98.5 F Pulse Rate 69 58 Respiratory 17 15 Rate Blood Pressure 129/71 129/61 (mmHg) O2 Sat by Pulse 96 96 92 Oximetry Oxygen Devices in Use Now: None Appearance: alert, resting in bed, nontoxic Eyes: No Scleral Icterus Ears/Nose/Mouth/Throat: NL Teeth, Lips, Gums Neck: NL Appearance and Movements; NL JVP Respiratory: Symmetrical Chest Expansion and Respiratory Effort Cardiovascular: NL Sounds; No Murmurs; No JVD Abdominal: NL Sounds; No Tenderness; No Distention Lymphatic: No Cervical Adenopathy Extremities: - - RLE >LLE, tiffany wrapped and boot, mild erythema extending beyond the tiffany Neurological: Alert and Oriented x 3 Result Diagrams: 06/09/18 06:22 06/10/18 09:35 Microbiology and Other Data: Microbiology 06/04/18 07:47 Aerobic Blood Culture - Preliminary Blood Venous Anaerobic Blood Culture - Preliminary No Growth Day 1 Blood MRSA/MSSA (PCR) - Final Mrsa Positive S.aureus Positive Assess/Plan/Problems-Billing Assessment: Mr Crarillo is a 62yo M with PMH of type 2 DM, diabetic neuropathy and gastroparesis, HTN HLD, gout, anxiety, nephrotic syndrome with CKD stage 3, diastolic CHF, who presented to ED with c/o 2 months of right hallux wound, pain , worsening with edema and erythema, found to have hallux osteomyelitis. - Patient Problems (1) JAJA (acute kidney injury) Current Visit: Yes Status: Acute Code(s): N17.9 - ACUTE KIDNEY FAILURE, UNSPECIFIED SNOMED Code(s): 90846289 Comment: On CKD stage 3 Vanc switched to linezolid with slight improvement today creatinine seems to have peaked (2) MRSA (methicillin resistant Staphylococcus aureus) septicemia Current Visit: Yes Status: Acute Code(s): A41.02 - SEPSIS DUE TO METHICILLIN RESISTANT STAPHYLOCOCCUS AUREUS SNOMED Code(s): 099267494 Comment: Source is toe osteomyelitis. Transthoracic echocardiogram negative for vegetations Repeat blood cultures show no growth. Continue linezolid per ID recommendations (3) Toe osteomyelitis, right Current Visit: Yes Status: Acute Code(s): M86.9 - OSTEOMYELITIS, UNSPECIFIED SNOMED Code(s): 87596243 Comment: With diabetic foot infection. S/p 1st MTP disarticulation 06/05/18. Heel WB with post op shoe as tolerated. (4) Diabetes Current Visit: Yes Status: Chronic Code(s): E11.9 - TYPE 2 DIABETES MELLITUS WITHOUT COMPLICATIONS SNOMED Code(s): 36098455 Comment: A1c is 6.8. Continue Lispro SS. (5) (HFpEF) heart failure with preserved ejection fraction Current Visit: No Status: Acute Code(s): I50.30 - UNSPECIFIED DIASTOLIC ( CONGESTIVE) HEART FAILURE SNOMED Code(s): 235038657 Comment: appears euvolemic today Status and Disposition: Awaiting insurance auth for residential transfer .
[2018-06-10] MEDS ORDERED: Morphine VIAL* 4 MG/ML VIAL (1 ml vial) IV PRN (21:36)
[2018-06-11 05:44] LABS: ABS Basophils 0 10^3/ul (0-0.2); ABS Eosinophils 0.3 10^3/ul (0-0.6); ABS Lymphocytes 1.3 10^3/ul (1.0-4.8); ABS Monocytes 0.6 10^3/ul (0-0.8); ABS Nucleated RBC 0 10^3/ul; Eosinophil % 5.1 %; Hematocrit 26 % (42-52); Hemoglobin 8.7 g/dl (14.0-18.0); Lymphocyte % 20.2 %; Mean Corpuscular HGB Conc 33 g/dl (31-36); Mean Corpuscular Hemoglobin 25 pg (27-31); Mean Corpuscular Volume 76 fL (80-94); Mean Platelet Volume 7.9 fL (7.4-10.4); Nucleated Red Blood Cells % 0; Platelet Count 331 10^3/ul (150-450); Red Blood Count 3.46 10^6/ul (4.00-5.40); Red Cell Distribution Width 15 % (10.5-15); White Blood Count 6.2 10^3/ul (3.5-10.8)
[2018-06-11 06:03] LABS: EGFR Non-African American 18.1 (>60)
[2018-06-11] MEDS: Levothyroxine TAB* 25 MCG TAB PO SCH (06:29)
[2018-06-11] MEDS: Heparin VIAL(*) 5000 UNITS/ML VIAL (FIVE THOUSAND) SUBCUT SCH ×3 (06:30→22:42)
[2018-06-11] MEDS: Insulin LISPRO* 1 UNITS UNIT SUBCUT SCH ×4 (07:31→21:05)
--- NOTE | 2018-06-11 07:45 | PN ---
Subjective Date of Service: 06/11/18 Interval History: Mr. Carrillo feels good. He walked to the hallway and the bathroom without difficulty. He has some pain in the foot that required morphine last night, but he took oxycodone today with some relief. Family History: Unchanged from Admission Social History: Unchanged from Admission Past Medical History: Unchanged from Admission Objective Active Medications: Acetaminophen (Tylenol Tab*) 650 mg PO Q6H PRN PRN Reason: pain/fever Last Admin: 06/05/18 00:32 Dose: 650 mg Hydrocodone Bitart/Acetaminophen ([place] 5-325 Tab*) 1 tab PO Q4H PRN PRN Reason: PAIN Last Admin: 06/09/18 01:16 Dose: 1 tab Albuterol (Ventolin Hfa Inhaler*) 2 puff INH Q4H PRN PRN Reason: SOB/WHEEZING Last Admin: 06/04/18 13:49 Dose: 2 puff Amlodipine Besylate (Norvasc Tab*) 10 mg PO DAILY [facility] Last Admin: 06/10/18 08:19 Dose: 10 mg Aspirin (Aspirin Ec Tab*) 81 mg PO DAILY [facility] Last Admin: 06/10/18 08:19 Dose: 81 mg Calcitriol (Rocaltrol Cap*) 0.25 mcg PO DAILY [facility] Last Admin: 06/10/18 08:19 Dose: 0.25 mcg Cholecalciferol (Vitamin D Tab*) 3,000 units PO DAILY [facility] Last Admin: 06/10/18 08:19 Dose: 3,000 units Citric Acid/Sodium Citrate (Bicitra*) 15 ml PO TID [facility] Last Admin: 06/10/18 21:56 Dose: 15 ml Dextrose (D50w Syringe 50 Ml*) 12.5 gm IV PUSH .FOR FS < 60 - SS PRN PRN Reason: FS < 60 Furosemide (Lasix Tab*) 40 mg PO BID [facility] Last Admin: 06/10/18 21:58 Dose: 40 mg Gabapentin (Neurontin Cap(*)) 100 mg PO TID [facility] Last Admin: 06/10/18 21:58 Dose: 100 mg Heparin Sodium (Porcine) (Heparin Vial(*)) 5,000 units SUBCUT Q8HR [facility] Last Admin: 06/11/18 06:30 Dose: 5,000 units Linezolid (Zyvox 600 Mg Ivpremix(*)) 600 mg in 300 mls @ 300 mls/hr IVPB Q12H [facility] Last Admin: 06/10/18 22:30 Dose: 300 mls/hr Insulin Human Lispro (Humalog*) 0 units SUBCUT ACHS [facility]; Protocol Last Admin: 06/11/18 07:31 Dose: Not Given Isosorbide Mononitrate (Imdur Er Tab*) 30 mg PO DAILY [facility] Last Admin: 06/10/18 08:19 Dose: 30 mg Levothyroxine Sodium (Synthroid Tab*) 25 mcg PO DAILY@0600 [facility] Last Admin: 06/11/18 06:29 Dose: 25 mcg Losartan Potassium (Cozaar Tab*) 25 mg PO DAILY [facility] Last Admin: 06/10/18 08:19 Dose: 25 mg Metolazone (Zaroxolyn Tab*) 5 mg PO DAILY@0830 [facility] Last Admin: 06/10/18 08:18 Dose: 5 mg Metoprolol Succinate (Toprol Xl Tab*) 100 mg PO DAILY [facility] Last Admin: 06/10/18 08:19 Dose: 100 mg Metoprolol Succinate (Toprol Xl Tab*) 25 mg PO DAILY [facility] Last Admin: 06/10/18 08:19 Dose: 25 mg Morphine Sulfate (Morphine Vial*) 2 mg IV Q6H PRN PRN Reason: SEVERE PAIN Vital Signs - 8 hr 06/11/18 06/11/18 06/11/18 00:16 00:31 03:14 Temperature 97.8 F 97.9 F Pulse Rate 55 59 Respiratory 18 16 18 Rate Blood Pressure 120/45 (mmHg) O2 Sat by Pulse 94 95 Oximetry 06/11/18 06/11/18 04:36 07:25 Temperature 97.6 F Pulse Rate 58 Respiratory 15 Rate Blood Pressure 123/50 142/69 (mmHg) O2 Sat by Pulse 96 Oximetry Oxygen Devices in Use Now: None Appearance: resting in bed, daydreaming of being in [place] Eyes: No Scleral Icterus Ears/Nose/Mouth/Throat: NL Teeth, Lips, Gums Neck: NL Appearance and Movements; NL JVP Respiratory: Symmetrical Chest Expansion and Respiratory Effort Cardiovascular: NL Sounds; No Murmurs; No JVD, RRR Abdominal: NL Sounds; No Tenderness; No Distention Lymphatic: No Cervical Adenopathy Extremities: - - 2+ edema b/l, right boot in place Neurological: Alert and Oriented x 3 Result Diagrams: 06/11/18 05:27 06/11/18 05:27 Microbiology and Other Data: Microbiology 06/04/18 07:47 Aerobic Blood Culture - Preliminary Blood Venous Anaerobic Blood Culture - Preliminary No Growth Day 1 Blood MRSA/MSSA (PCR) - Final Mrsa Positive S.aureus Positive Assess/Plan/Problems-Billing Assessment: Mr Carrillo is a 62yo M with PMH of type 2 DM, diabetic neuropathy and gastroparesis, HTN HLD, gout, anxiety, nephrotic syndrome with CKD stage 3, diastolic CHF, who presented to ED with c/o 2 months of right hallux wound, pain , worsening with edema and erythema, found to have hallux osteomyelitis. - Patient Problems (1) JAJA (acute kidney injury) Current Visit: Yes Status: Acute Code(s): N17.9 - ACUTE KIDNEY FAILURE, UNSPECIFIED SNOMED Code(s): 22599998 Comment: On CKD stage 3 Vanc switched to linezolid with ongoing improvement today Needs close nephrology follow up; says he does not have a buccaro (2) MRSA (methicillin resistant Staphylococcus aureus) septicemia Current Visit: Yes Status: Acute Code(s): A41.02 - SEPSIS DUE TO METHICILLIN RESISTANT STAPHYLOCOCCUS AUREUS SNOMED Code(s): 306765882 Comment: Source is toe osteomyelitis. Transthoracic echocardiogram negative for vegetations Repeat blood cultures show no growth (as of 06/06). Continue linezolid per ID recommendations--> end date 06/16 (3) Toe osteomyelitis, right Current Visit: Yes Status: Acute Code(s): M86.9 - OSTEOMYELITIS, UNSPECIFIED SNOMED Code(s): 95923956 Comment: With diabetic foot infection. S/p 1st MTP disarticulation 06/05/18. Heel WB with post op shoe as tolerated. (4) Diabetes Current Visit: Yes Status: Chronic Code(s): E11.9 - TYPE 2 DIABETES MELLITUS WITHOUT COMPLICATIONS SNOMED Code(s): 13303657 Comment: A1c is 6.8. Continue Lispro SS. (5) (HFpEF) heart failure with preserved ejection fraction Current Visit: No Status: Acute Code(s): I50.30 - UNSPECIFIED DIASTOLIC ( CONGESTIVE) HEART FAILURE SNOMED Code(s): 850423969 Comment: a little volume overloaded today; give extra dose of lasix Status and Disposition: Awaiting insurance auth for [facility] transfer .
[2018-06-11] MEDS: Linezolid 600 MG IVPREMIX(*) 600 MG/300 ML BAG IVPB SCH ×2 (08:04→22:49)
[2018-06-11] MEDS: amLODIPine TAB* 5 MG PO SCH (08:10)
[2018-06-11] MEDS: Metoprolol Succinate XL TAB* 100 MG PO SCH (08:10)
[2018-06-11] MEDS: Cholecalciferol TAB* 1000 UNITS PO SCH (08:11)
[2018-06-11] MEDS: Gabapentin CAP(*) 100 MG PO SCH ×3 (08:11→19:48)
[2018-06-11] MEDS: Sodium Citrate/Citric Acid* 15 ML UDC PO SCH ×3 (08:11→19:46)
[2018-06-11] MEDS: Metolazone TAB* 5 MG PO SCH (08:12)
[2018-06-11] MEDS: Isosorbide Mononitrate ER TAB* 30 MG PO SCH (08:12)
[2018-06-11] MEDS: Losartan TAB* 25 MG PO SCH (08:13)
[2018-06-11] MEDS: Aspirin EC TAB* 81 MG TAB.EC PO SCH (08:13)
[2018-06-11] MEDS: Metoprolol Succinate XL TAB* 25 MG PO SCH (08:13)
[2018-06-11] MEDS: Calcitriol CAP* 0.25 MCG PO SCH (08:13)
[2018-06-11] MEDS: Furosemide TAB* 40 MG PO SCH ×2 (08:13→19:49)
--- NOTE | 2018-06-11 09:45 | PN ---
Progress Note - Progress Note Date of Service: 06/11/18 SOAP: Subjective: CC: osteomyelitis HPI: 62 year old man with right great toe osteomyelitis and fever, tolerated amputation well. Feeling better, no fever, rash, or diarrhea. Objective: Vital Signs Temp 36.4 C 06/11/18 07:25 Pulse 58 06/11/18 07:25 Resp 16 06/11/18 08:11 BP 142/69 06/11/18 07:25 Pulse Ox 96 06/11/18 07:25 Intake & Output 06/10/18 06/11/18 06/11/18 18:59 06:59 18:59 Intake Total 1070 600 600 Output Total 1210 725 Balance -140 -125 600 Weight 232 lb 9.6 oz Intake: Oral 1070 600 600 Output: Urine 1210 725 Other: Estimated Void Medium # Voids 3 Gen:awake, no distress HEENT: no thrush Heart:RRR no murmur Lungs:CTA BL Abd:+BS NTND soft Skin: no rash MSK: right foot wrapped Laboratory Results - last 24 hr 06/10/18 06/10/18 06/10/18 09:35 11:41 16:18 WBC RBC Hgb Hct MCV MCH MCHC RDW Plt Count MPV Neut % (Auto) Lymph % (Auto) [place] % (Auto) Eos % (Auto) Baso % (Auto) Absolute Neuts (auto) Absolute Lymphs (auto) Absolute Monos (auto) Absolute Eos (auto) Absolute Basos (auto) Absolute Nucleated RBC Nucleated RBC % Sodium 130 L Potassium 5.1 H Chloride 98 L Carbon Dioxide 21 L Anion Gap 11 BUN 73 H Creatinine 3.67 H Est GFR ( Amer) 20.5 Est GFR (Non-Af Amer) 16.9 BUN/Creatinine Ratio 19.9 Glucose 189 H POC Glucose (mg/dL) 120 H 135 H Calcium 8.6 06/10/18 06/11/18 06/11/18 22:10 05:27 05:27 WBC 6.2 RBC 3.46 L Hgb 8.7 L Hct 26 L MCV 76 L MCH 25 L MCHC 33 RDW 15 Plt Count 331 MPV 7.9 Neut % (Auto) 63.7 Lymph % (Auto) 20.2 [place] % (Auto) 10.3 Eos % (Auto) 5.1 Baso % (Auto) 0.7 Absolute Neuts (auto) 4.0 Absolute Lymphs (auto) 1.3 Absolute Monos (auto) 0.6 Absolute Eos (auto) 0.3 Absolute Basos (auto) 0 Absolute Nucleated RBC 0 Nucleated RBC % 0 Sodium 131 L Potassium 5.0 Chloride 100 L Carbon Dioxide 24 Anion Gap 7 BUN 73 H Creatinine 3.47 H Est GFR ( Amer) 21.9 Est GFR (Non-Af Amer) 18.1 BUN/Creatinine Ratio 21.0 H Glucose 84 POC Glucose (mg/dL) 127 H Calcium 8.5 L 06/11/18 07:21 WBC RBC Hgb Hct MCV MCH MCHC RDW Plt Count MPV Neut % (Auto) Lymph % (Auto) [place] % (Auto) Eos % (Auto) Baso % (Auto) Absolute Neuts (auto) Absolute Lymphs (auto) Absolute Monos (auto) Absolute Eos (auto) Absolute Basos (auto) Absolute Nucleated RBC Nucleated RBC % Sodium Potassium Chloride Carbon Dioxide Anion Gap BUN Creatinine Est GFR ( Amer) Est GFR (Non-Af Amer) BUN/Creatinine Ratio Glucose POC Glucose (mg/dL) 89 Calcium Assessment: 1. MRSA chronic osteomyelitis right great toe s/p 1st MTP disarticulation 2. MRSA bacteremia 07/17 BC, cleared, no stigmata IE 3. obesity 4. T2DM Plan: 1. Day 7 IV antibiotics; will change to doxycycline 100 mg po bid for 21 more days, fu with me 1-[address] Zhang
[2018-06-11] MEDS: HYDROcodone/ACETAMIN 5-325 MG* 1 TAB PO PRN ×2 (12:02→19:46)
--- NOTE | 2018-06-11 14:32 | PN ---
Progress Note - Progress Note Date of Service: 06/11/18 SOAP: Subjective: []Patient seen and examined at bedside. No complaints today. Denies RLE pain, CP , SOB, dizziness, nausea. Objective: []]General: NAD RLE: Dressing changed, incision CDI without discharge or surrounding erythema. Able to wiggle remaining toes. Capillary refill less than two seconds distally. Assessment: []PRE-OP DIAGNOSES: Right first toe infection, osteomyelitis. OPERATIVE PROCEDURE: Disarticulation, right first MTP joint. Plan: [] Heel WB in post op shoe FU Dr Whitaker next week. Keep dressing CDI ABX plans per ID: doxycycline 100 mg po bid for 21 more days, fu with me 1-2 weeks Vital Signs Temp 97.9 F 06/11/18 11:05 Pulse 51 06/11/18 11:05 Resp 18 06/11/18 12:57 BP 118/61 06/11/18 11:05 Pulse Ox 98 06/11/18 11:05 Intake & Output 06/10/18 06/11/18 06/11/18 18:59 06:59 18:59 Intake Total 1070 600 900 Output Total 1210 725 Balance -140 -125 900 Weight 232 lb 9.6 oz Intake: Oral 1070 600 900 Output: Urine 1210 725 Other: Estimated Void Medium # Voids 3 Laboratory Last Values WBC 6.2 10^3/ul (3.5-10.8) 06/11/18 05:27 RBC 3.46 10^6/ul (4.00-5.40) L 06/11/18 05:27 Hgb 8.7 g/dl (14.0-18.0) L 06/11/18 05:27 Hct 26 % (42-52) L 06/11/18 05:27 MCV 76 fL (80-94) L 06/11/18 05:27 MCH 25 pg (27-31) L 06/11/18 05:27 MCHC 33 g/dl (31-36) 06/11/18 05:27 RDW 15 % (10.5-15) 06/11/18 05:27 Plt Count 331 10^3/ul (150-450) 06/11/18 05:27 MPV 7.9 fL (7.4-10.4) 06/11/18 05:27 Neut % (Auto) 63.7 % 06/11/18 05:27 Lymph % (Auto) 20.2 % 06/11/18 05:27 [place] % (Auto) 10.3 % 06/11/18 05:27 Eos % (Auto) 5.1 % 06/11/18 05:27 Baso % (Auto) 0.7 % 06/11/18 05:27 Absolute Neuts (auto) 4.0 10^3/ul (1.5-7.7) 06/11/18 05:27 Absolute Lymphs (auto) 1.3 10^3/ul (1.0-4.8) 06/11/18 05:27 Absolute Monos (auto) 0.6 10^3/ul (0-0.8) 06/11/18 05:27 Absolute Eos (auto) 0.3 10^3/ul (0-0.6) 06/11/18 05:27 Absolute Basos (auto) 0 10^3/ul (0-0.2) 06/11/18 05:27 Absolute Nucleated RBC 0 10^3/ul 06/11/18 05:27 Nucleated RBC % 0 06/11/18 05:27 ESR 120 mm/Hr (0-20) H 06/06/18 05:47 INR (Anticoag Therapy) 1.24 (0.77-1.02) H 06/05/18 08:26 APTT 28.4 seconds (26.0-36.3) 06/05/18 08:26 Sodium 131 mmol/L (135-145) L 06/11/18 05:27 Potassium 5.0 mmol/L (3.5-5.0) 06/11/18 05:27 Chloride 100 mmol/L (101-111) L 06/11/18 05:27 Carbon Dioxide 24 mmol/L (22-32) 06/11/18 05:27 Anion Gap 7 mmol/L (2-11) 06/11/18 05:27 BUN 73 mg/dL (6-24) H 06/11/18 05:27 Creatinine 3.47 mg/dL (0.67-1.17) H 06/11/18 05:27 Est GFR ( Amer) 21.9 (>60) 06/11/18 05:27 Est GFR (Non-Af Amer) 18.1 (>60) 06/11/18 05:27 BUN/Creatinine Ratio 21.0 (8-20) H 06/11/18 05:27 Glucose 84 mg/dL (70-100) 06/11/18 05:27 POC Glucose (mg/dL) 178 mg/dL (70-100) H 06/11/18 11:33 Hemoglobin A1c 6.8 % (4.0-5.6) H 06/05/18 08:26 Lactic Acid 0.5 mmol/L (0.5-2.0) 06/04/18 07:47 Calcium 8.5 mg/dL (8.6-10.3) L 06/11/18 05:27 Total Bilirubin 0.30 mg/dL (0.2-1.0) 06/04/18 07:47 AST 12 U/L (13-39) L 06/04/18 07:47 ALT 21 U/L (7-52) 06/04/18 07:47 Alkaline Phosphatase 51 U/L (34-104) 06/04/18 07:47 C-Reactive Protein 224.22 mg/L (<8.01) H 06/06/18 05:47 Total Protein 7.7 g/dL (6.4-8.9) 06/04/18 07:47 Albumin 3.5 g/dL (3.2-5.2) 06/04/18 07:47 Globulin 4.2 g/dL (2-4) H 06/04/18 07:47 Albumin/Globulin Ratio 0.8 (1-3) L 06/04/18 07:47 Random Vancomycin 16.5 mcg/mL 06/09/18 06:22
[2018-06-12] MEDS: HYDROcodone/ACETAMIN 5-325 MG* 1 TAB PO PRN ×3 (00:15→13:55)
[2018-06-12 05:58] LABS: Hematocrit 27 % (42-52); Hemoglobin 9.1 g/dl (14.0-18.0); Mean Corpuscular HGB Conc 33 g/dl (31-36); Mean Corpuscular Hemoglobin 25 pg (27-31); Mean Corpuscular Volume 76 fL (80-94); Mean Platelet Volume 7.9 fL (7.4-10.4); Platelet Count 344 10^3/ul (150-450); Red Blood Count 3.59 10^6/ul (4.00-5.40); Red Cell Distribution Width 15 % (10.5-15)
[2018-06-12 06:11] LABS: EGFR Non-African American 19.4 (>60)
[2018-06-12] MEDS: Heparin VIAL(*) 5000 UNITS/ML VIAL (FIVE THOUSAND) SUBCUT SCH ×3 (06:17→20:30)
[2018-06-12] MEDS: Levothyroxine TAB* 25 MCG TAB PO SCH (06:18)
[2018-06-12] MEDS: Insulin LISPRO* 1 UNITS UNIT SUBCUT SCH ×4 (08:52→20:29)
[2018-06-12] MEDS: Metolazone TAB* 5 MG PO SCH (09:44)
[2018-06-12] MEDS: Metoprolol Succinate XL TAB* 25 MG PO SCH (09:44)
[2018-06-12] MEDS: Isosorbide Mononitrate ER TAB* 30 MG PO SCH (09:44)
[2018-06-12] MEDS: DOXYcycline CAP(*) 100 MG PO SCH ×2 (09:44→20:31)
[2018-06-12] MEDS: Losartan TAB* 25 MG PO SCH (09:44)
[2018-06-12] MEDS: Metoprolol Succinate XL TAB* 100 MG PO SCH (09:44)
[2018-06-12] MEDS: Gabapentin CAP(*) 100 MG PO SCH ×3 (09:44→20:31)
[2018-06-12] MEDS: Calcitriol CAP* 0.25 MCG PO SCH (09:45)
[2018-06-12] MEDS: Furosemide TAB* 40 MG PO SCH ×2 (09:45→20:31)
[2018-06-12] MEDS: Aspirin EC TAB* 81 MG TAB.EC PO SCH (09:45)
[2018-06-12] MEDS: Cholecalciferol TAB* 1000 UNITS PO SCH (09:45)
[2018-06-12] MEDS: Sodium Citrate/Citric Acid* 15 ML UDC PO SCH ×3 (09:45→20:28)
[2018-06-12] MEDS: amLODIPine TAB* 5 MG PO SCH (09:45)
[2018-06-12] MEDS: oxyCODONE TAB* 5 MG TAB PO PRN (20:31)
[2018-06-13] MEDS: oxyCODONE TAB* 5 MG TAB PO PRN ×2 (02:36→09:03)
[2018-06-13] MEDS: Levothyroxine TAB* 25 MCG TAB PO SCH (05:51)
[2018-06-13] MEDS: Heparin VIAL(*) 5000 UNITS/ML VIAL (FIVE THOUSAND) SUBCUT SCH ×3 (05:52→21:40)
[2018-06-13] MEDS: Insulin LISPRO* 1 UNITS UNIT SUBCUT SCH ×4 (07:52→20:04)
[2018-06-13] MEDS: Furosemide TAB* 40 MG PO SCH ×2 (09:03→20:18)
[2018-06-13] MEDS: Sodium Citrate/Citric Acid* 15 ML UDC PO SCH ×3 (09:03→20:19)
[2018-06-13] MEDS: Cholecalciferol TAB* 1000 UNITS PO SCH (09:04)
[2018-06-13] MEDS: amLODIPine TAB* 5 MG PO SCH (09:04)
[2018-06-13] MEDS: Losartan TAB* 25 MG PO SCH (09:04)
[2018-06-13] MEDS: Metoprolol Succinate XL TAB* 25 MG PO SCH (09:04)
[2018-06-13] MEDS: Isosorbide Mononitrate ER TAB* 30 MG PO SCH (09:05)
[2018-06-13] MEDS: Aspirin EC TAB* 81 MG TAB.EC PO SCH (09:05)
[2018-06-13] MEDS: Metolazone TAB* 5 MG PO SCH (09:05)
[2018-06-13] MEDS: Gabapentin CAP(*) 100 MG PO SCH ×3 (09:05→20:18)
[2018-06-13] MEDS: Calcitriol CAP* 0.25 MCG PO SCH (09:05)
[2018-06-13] MEDS: Metoprolol Succinate XL TAB* 100 MG PO SCH (09:05)
[2018-06-13] MEDS: DOXYcycline CAP(*) 100 MG PO SCH ×2 (09:05→20:18)
[2018-06-13 10:33] LABS: Hematocrit 30 % (42-52); Hemoglobin 9.7 g/dl (14.0-18.0); Mean Corpuscular HGB Conc 32 g/dl (31-36); Mean Corpuscular Hemoglobin 25 pg (27-31); Mean Corpuscular Volume 77 fL (80-94); Mean Platelet Volume 7.8 fL (7.4-10.4); Platelet Count 436 10^3/ul (150-450); Red Blood Count 3.93 10^6/ul (4.00-5.40); Red Cell Distribution Width 15 % (10.5-15); White Blood Count 6.8 10^3/ul (3.5-10.8)
[2018-06-13 10:44] LABS: EGFR Non-African American 19.6 (>60)
--- NOTE | 2018-06-13 11:19 | PN ---
Progress Note - Progress Note Date of Service: 06/13/18 SOAP: Subjective: Pt is doing well. Pain controlled. Denies CP/SOB, F/C, calf pain Objective: PE- 62 y/o WDWN M NAD RLE- dressing c/d/i, calf soft NT, +DF/PF ankle, NVI Vital Signs Temp Pulse Resp BP Pulse Ox 97.7 F 63 16 159/70 98 06/13/18 07:46 06/13/18 07:46 06/13/18 09:05 06/13/18 07:46 06/13/18 07:54 Laboratory Results - last 24 hr 06/12/18 06/12/18 06/12/18 12:16 16:54 19:52 WBC RBC Hgb Hct MCV MCH MCHC RDW Plt Count MPV Sodium Potassium Chloride Carbon Dioxide Anion Gap BUN Creatinine Est GFR ( Amer) Est GFR (Non-Af Amer) BUN/Creatinine Ratio Glucose POC Glucose (mg/dL) 108 H 100 140 H Calcium 06/13/18 06/13/18 06/13/18 07:49 10:16 10:16 WBC 6.8 RBC 3.93 L Hgb 9.7 L Hct 30 L MCV 77 L MCH 25 L MCHC 32 RDW 15 Plt Count 436 MPV 7.8 Sodium 134 L Potassium 5.4 H Chloride 96 L Carbon Dioxide 29 Anion Gap 9 BUN 69 H Creatinine 3.24 H Est GFR ( Amer) 23.7 Est GFR (Non-Af Amer) 19.6 BUN/Creatinine Ratio 21.3 H Glucose 102 H POC Glucose (mg/dL) 80 Calcium 9.2 Assessment: PRE-OP DIAGNOSES: Right first toe infection, osteomyelitis. S/P Disarticulation, right first MTP joint. Plan: Heel WB in post op shoe FU Dr Whitaker next week. Keep dressing CDI ABX plans per ID: doxycycline 100 mg po bid for 21 more days, fu with Dr. Pinto 1-2 weeks
--- NOTE | 2018-06-13 14:20 | PN ---
Subjective Date of Service: 06/13/18 Interval History: Mr. Carrillo feels good, he is cracking jokes and is in good spirits about having to stay until Friday due to insurance issues with senior living approval. He has no pain, he has been walking around his room, and has no complaints. He has a good appetite, is urinating well, moving his bowels, and has no pain. Family History: Unchanged from Admission Social History: Unchanged from Admission Past Medical History: Unchanged from Admission Objective Active Medications: Acetaminophen (Tylenol Tab*) 650 mg PO Q6H PRN PRN Reason: pain/fever Last Admin: 06/05/18 00:32 Dose: 650 mg Albuterol (Ventolin Hfa Inhaler*) 2 puff INH Q4H PRN PRN Reason: SOB/WHEEZING Last Admin: 06/04/18 13:49 Dose: 2 puff Amlodipine Besylate (Norvasc Tab*) 10 mg PO DAILY [facility] Last Admin: 06/13/18 09:04 Dose: 10 mg Aspirin (Aspirin Ec Tab*) 81 mg PO DAILY [facility] Last Admin: 06/13/18 09:05 Dose: 81 mg Calcitriol (Rocaltrol Cap*) 0.25 mcg PO DAILY [facility] Last Admin: 06/13/18 09:05 Dose: 0.25 mcg Cholecalciferol (Vitamin D Tab*) 3,000 units PO DAILY [facility] Last Admin: 06/13/18 09:04 Dose: 3,000 units Citric Acid/Sodium Citrate (Bicitra*) 15 ml PO TID [facility] Last Admin: 06/13/18 13:45 Dose: 15 ml Dextrose (D50w Syringe 50 Ml*) 12.5 gm IV PUSH .FOR FS < 60 - SS PRN PRN Reason: FS < 60 Doxycycline Hyclate (Vibramycin Cap(*)) 100 mg PO BID [facility] Last Admin: 06/13/18 09:05 Dose: 100 mg Furosemide (Lasix Tab*) 40 mg PO BID [facility] Last Admin: 06/13/18 09:03 Dose: 40 mg Gabapentin (Neurontin Cap(*)) 100 mg PO TID [facility] Last Admin: 06/13/18 13:44 Dose: 100 mg Heparin Sodium (Porcine) (Heparin Vial(*)) 5,000 units SUBCUT Q8HR [facility] Last Admin: 12/01/18 13:45 Dose: 5,000 units Insulin Human Lispro (Humalog*) 0 units SUBCUT [facility]; Protocol Last Admin: 06/13/18 13:48 Dose: Not Given Isosorbide Mononitrate (Imdur Er Tab*) 30 mg PO DAILY [facility] Last Admin: 06/13/18 09:05 Dose: 30 mg Levothyroxine Sodium (Synthroid Tab*) 25 mcg PO DAILY@0600 [facility] Last Admin: 06/13/18 05:51 Dose: 25 mcg Losartan Potassium (Cozaar Tab*) 25 mg PO DAILY [facility] Last Admin: 06/13/18 09:04 Dose: 25 mg Metolazone (Zaroxolyn Tab*) 5 mg PO DAILY@0830 [facility] Last Admin: 06/13/18 09:05 Dose: 5 mg Metoprolol Succinate (Toprol Xl Tab*) 100 mg PO DAILY [facility] Last Admin: 06/13/18 09:05 Dose: 100 mg Metoprolol Succinate (Toprol Xl Tab*) 25 mg PO DAILY [facility] Last Admin: 06/13/18 09:04 Dose: 25 mg Morphine Sulfate (Morphine Vial*) 2 mg IV Q6H PRN PRN Reason: SEVERE PAIN Oxycodone HCl (Roxycodone Tab*) 5 mg PO Q4H PRN PRN Reason: PAIN Last Admin: 06/13/18 09:03 Dose: 5 mg Vital Signs - 8 hr 06/13/18 06/13/18 06/13/18 07:46 07:54 09:03 Temperature 97.7 F Pulse Rate 63 Respiratory 18 18 18 Rate Blood Pressure 159/70 (mmHg) O2 Sat by Pulse 94 98 Oximetry 06/13/18 06/13/18 06/13/18 09:05 11:13 13:44 Temperature 97.8 F Pulse Rate 53 Respiratory 16 17 16 Rate Blood Pressure 145/67 (mmHg) O2 Sat by Pulse 97 Oximetry 06/13/18 13:45 Temperature Pulse Rate Respiratory 16 Rate Blood Pressure (mmHg) O2 Sat by Pulse Oximetry Oxygen Devices in Use Now: None Appearance: alert, well appering, pleasant Eyes: No Scleral Icterus Ears/Nose/Mouth/Throat: NL Teeth, Lips, Gums Neck: NL Appearance and Movements; NL JVP Respiratory: Symmetrical Chest Expansion and Respiratory Effort Cardiovascular: NL Sounds; No Murmurs; No JVD, RRR Abdominal: NL Sounds; No Tenderness; No Distention Lymphatic: No Cervical Adenopathy Extremities: - - right foot is wrapped with some erythema proximally Skin: - - seborrheic dermatitis Result Diagrams: 06/13/18 10:16 06/13/18 10:16 Microbiology and Other Data: Microbiology 06/04/18 07:47 Aerobic Blood Culture - Preliminary Blood Venous Anaerobic Blood Culture - Preliminary No Growth Day 1 Blood MRSA/MSSA (PCR) - Final Mrsa Positive S.aureus Positive Assess/Plan/Problems-Billing Assessment: Mr Carrillo is a 62yo M with PMH of type 2 DM, diabetic neuropathy and gastroparesis, HTN HLD, gout, anxiety, nephrotic syndrome with CKD stage 3, diastolic CHF, who presented to ED with c/o 2 months of right hallux wound, pain , worsening with edema and erythema, found to have hallux osteomyelitis. 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 Transthoracic echocardiogram negative for vegetations Repeat blood cultures show no growth (as of 06/06). Continue linezolid per ID recommendations--> end date 06/16 (4) Toe osteomyelitis, right Current Visit: Yes Status: Acute Code(s): M86.9 - OSTEOMYELITIS, UNSPECIFIED SNOMED Code(s): 29834805 Comment: With diabetic foot infection. S/p 1st MTP disarticulation 06/05/18. Heel WB with post op shoe as tolerated. (5) Diabetes Current Visit: Yes Status: Chronic Code(s): E11.9 - TYPE 2 DIABETES MELLITUS WITHOUT COMPLICATIONS SNOMED Code(s): 67255146 Comment: A1c is 6.8. Continue Lispro SS. BGs have been at goal. (6) (HFpEF) heart failure with preserved ejection fraction Current Visit: No Status: Acute Code(s): I50.30 - UNSPECIFIED DIASTOLIC ( CONGESTIVE) HEART FAILURE SNOMED Code(s): 928523490 Comment: euvolemic Status and Disposition: Awaiting insurance auth for senior living transfer .
[2018-06-13] MEDS ORDERED: Sodium Polystyrene ORAL.SOL* 15 GM/60 ML BTL PO ONE (14:34)
[2018-06-14] MEDS: Heparin VIAL(*) 5000 UNITS/ML VIAL (FIVE THOUSAND) SUBCUT SCH ×2 (05:41→12:50)
[2018-06-14] MEDS: Levothyroxine TAB* 25 MCG TAB PO SCH (05:42)
[2018-06-14] MEDS: oxyCODONE TAB* 5 MG TAB PO PRN ×3 (05:47→20:38)
[2018-06-14 07:13] LABS: Hematocrit 27 % (42-52); Hemoglobin 9.1 g/dl (14.0-18.0); Mean Corpuscular HGB Conc 34 g/dl (31-36); Mean Corpuscular Hemoglobin 26 pg (27-31); Mean Corpuscular Volume 76 fL (80-94); Mean Platelet Volume 7.9 fL (7.4-10.4); Platelet Count 350 10^3/ul (150-450); Red Blood Count 3.52 10^6/ul (4.00-5.40); Red Cell Distribution Width 15 % (10.5-15); White Blood Count 6.7 10^3/ul (3.5-10.8)
[2018-06-14 07:32] LABS: EGFR Non-African American 19.4 (>60)
[2018-06-14] MEDS: Sodium Citrate/Citric Acid* 15 ML UDC PO SCH ×3 (08:23→20:39)
[2018-06-14] MEDS: DOXYcycline CAP(*) 100 MG PO SCH ×2 (08:24→20:38)
[2018-06-14] MEDS: Calcitriol CAP* 0.25 MCG PO SCH (08:24)
[2018-06-14] MEDS: Cholecalciferol TAB* 1000 UNITS PO SCH (08:24)
[2018-06-14] MEDS: Metoprolol Succinate XL TAB* 100 MG PO SCH (08:25)
[2018-06-14] MEDS: Aspirin EC TAB* 81 MG TAB.EC PO SCH (08:25)
[2018-06-14] MEDS: Isosorbide Mononitrate ER TAB* 30 MG PO SCH (08:25)
[2018-06-14] MEDS: Metoprolol Succinate XL TAB* 25 MG PO SCH (08:25)
[2018-06-14] MEDS: Metolazone TAB* 5 MG PO SCH (08:25)
[2018-06-14] MEDS: Insulin LISPRO* 1 UNITS UNIT SUBCUT SCH ×4 (08:25→20:45)
[2018-06-14] MEDS: Furosemide TAB* 40 MG PO SCH ×2 (08:25→20:38)
[2018-06-14] MEDS: Gabapentin CAP(*) 100 MG PO SCH ×3 (08:25→20:38)
[2018-06-14] MEDS: amLODIPine TAB* 5 MG PO SCH (08:26)
[2018-06-14] MEDS ORDERED: Patiromer POWDER* 8.4 GM PAK PO ONE (10:12)
[2018-06-15] MEDS: Heparin VIAL(*) 5000 UNITS/ML VIAL (FIVE THOUSAND) SUBCUT SCH ×3 (00:26→14:13)
[2018-06-15] MEDS: Levothyroxine TAB* 25 MCG TAB PO SCH (05:44)
[2018-06-15] MEDS: Sodium Citrate/Citric Acid* 15 ML UDC PO SCH ×2 (07:53→14:13)
[2018-06-15] MEDS: Cholecalciferol TAB* 1000 UNITS PO SCH (07:54)
[2018-06-15] MEDS: Insulin LISPRO* 1 UNITS UNIT SUBCUT SCH ×2 (07:54→11:43)
[2018-06-15] MEDS: Calcitriol CAP* 0.25 MCG PO SCH (07:54)
[2018-06-15] MEDS: Aspirin EC TAB* 81 MG TAB.EC PO SCH (07:55)
[2018-06-15] MEDS: Furosemide TAB* 40 MG PO SCH (07:55)
[2018-06-15] MEDS: Gabapentin CAP(*) 100 MG PO SCH ×2 (07:55→14:08)
[2018-06-15] MEDS: amLODIPine TAB* 5 MG PO SCH (07:56)
[2018-06-15] MEDS: DOXYcycline CAP(*) 100 MG PO SCH (07:56)
[2018-06-15] MEDS: Metoprolol Succinate XL TAB* 25 MG PO SCH (07:56)
[2018-06-15] MEDS: Metoprolol Succinate XL TAB* 100 MG PO SCH (07:57)
[2018-06-15] MEDS: Isosorbide Mononitrate ER TAB* 30 MG PO SCH (07:57)
[2018-06-15] MEDS: Metolazone TAB* 5 MG PO SCH (07:57)
[2018-06-15] MEDS: oxyCODONE TAB* 5 MG TAB PO PRN ×2 (07:57→14:07)
--- NOTE | 2018-06-15 08:21 | PN ---
Progress Note - Progress Note Date of Service: 06/15/18 SOAP: Subjective: CC: osteomyelitis HPI: 62 year old man with right great toe osteomyelitis and fever, tolerated amputation well. Appetite is good, interested in discharge. No fever, rash, or diarrhea. Objective: Vital Signs Temp 36.8 C 06/15/18 02:33 Pulse 55 06/15/18 02:33 Resp 16 06/15/18 07:57 BP 136/66 06/15/18 02:33 Pulse Ox 94 06/15/18 02:33 Intake & Output 06/14/18 06/15/18 06/15/18 18:59 06:59 18:59 Intake Total 240 0 Output Total 425 Balance -185 0 Weight 228 lb Intake: Oral 240 0 Output: Urine 425 Other: # Bowel Movements 0 # Voids 1 Gen:awake, no distress Heart:RRR no murmur Lungs:CTA BL Abd:+BS NTND soft Skin: no rash MSK: right foot wrapped Assessment: 1. MRSA chronic osteomyelitis right great toe s/p 1st MTP disarticulation 2. MRSA bacteremia / BC, cleared, no stigmata IE 3. obesity 4. T2DM Plan: 1. doxycycline 100 mg po bid for 21 more days, fu with me 1-2 weeks 25 minutes floor time>50% face to face discussing antibiotic and rehab plans
[2018-06-15 12:55] VITALS: BP 120/61
--- NOTE | 2018-06-15 13:48 | DS ---
CC: Daiana Bautista NP; Dr. Will; Dr. Cooper; Dr. Whitaker; [facility] * DISCHARGE SUMMARY: DATE OF ADMISSION: 06/04/18 DATE OF DISCHARGE: 06/15/18 PRIMARY CARE PROVIDER: Daiana Bautista NP. DISCHARGE DIAGNOSES: 1. MRSA septicemia. 2. Right toe osteomyelitis, likely MRSA positive, status post amputation of the right great toe performed by Dr. Whitaker on 06/05/18. 3. Acute kidney injury on chronic kidney insufficiency. 4. Mild hyperkalemia, losartan was discontinued. SECONDARY DIAGNOSES: 1. History of type 1 diabetes with diabetic neuropathy and gastroparesis. 2. Hypertension. 3. Hyperlipidemia. 4. Anxiety. 5. Gout. 6. Nephrotic syndrome with chronic kidney disease stage 3. 7. History of possible congestive heart failure in the past. 8. History of knee surgery in the past. 9. Status post appendectomy remotely. MEDICATIONS AT DISCHARGE: Include: 1. Doxycycline 100 mg p.o. b.i.d. for a total of 21 days. 2. Aspirin 81 mg daily. 3. Vitamin D 3000 units p.o. daily. 4. Imdur 30 mg daily. 5. Synthroid 25 mcg daily. 6. Metoprolol succinate 125 mg daily. 7. Albuterol inhaler on a p.r.n. basis. 8. Norvasc 10 mg daily. 9. Calcitriol 0.25 mcg daily. 10. Furosemide 40 mg b.i.d. 11. Zaroxolyn 5 mg daily. LABORATORY DATA: On 06/14/18, sodium 137, potassium 4.1, chloride 98, carbon dioxide 30, BUN 67, creatinine 3.27. That was obtained a day prior to discharge. At that point, the patient received a dose of Kayexalate and the patient's losartan was discontinued. It was recommended for the patient to have another basic metabolic panel drawn in approximately 3 to 5 days. CBC on 06/14/18 showed white blood cell count of 6.7, hemoglobin 9.1, hematocrit 27 and platelets 350,000. Microbiology studies showed aerobic blood cultures were positive for MRSA 1 out of 4 bottles. CONSULTATIONS DURING THE HOSPITAL STAY: Included: 1. Dr. Cooper from Infectious Disease. 2. Dr. Whitaker from Orthopedic surgery. PROCEDURES PERFORMED: Included: On 06/05/18, right great toe amputation due to osteomyelitis performed by Dr. Whitaker. At discharge, the patient reminded to keep his dressings clean, dry and intact until seen by Dr. Whitaker next week for followup. Ambulation at discharge is heel weightbearing, one boot is in place on the right postoperative foot. Transthoracic echocardiogram obtained on 06/05/18 showed moderate LVH, EF of 60 % to 65% with abnormal left ventricular diastolic function observed. The right ventricle is moderately dilated. The aortic valve leaflets are mildly thickened with good excursion and function. There was mitral annulus calcification. There was regurgitation. Venous Doppler study obtained on 06/12/18 showed no right lower extremity DVT and not positive for Bojorquez cyst. HOSPITALIZATION COURSE: Louie Carrillo is a 62-year-old male with history of nephrotic syndrome who presented to the hospital on 06/02/18 with complaints of his toe hurting. The patient was noted to have osteomyelitis of the right great toe and one blood culture positive for MRSA. He was admitted to the medicine service and seen by Dr. Cooper from Infectious Disease. Initially, he was placed on vancomycin and then switched to doxycycline as per Dr. Cooper 's recommendation. The patient underwent right great toe amputation by Dr. Whitaker on 06/05/18. The pathology from this surgery is still pending at the time of dictation. By the time of discharge, he was placed at that point on oral antibiotics from IV vancomycin. It is recommended for the patient to continue vancomycin p.o. for a total of 21 days. Please also note that the patient had suffered from acute kidney injury and chronic renal insufficiency during his hospital stay and by the time of discharge, his creatinine normalized at 3.27, but it is not back to his baseline. It is recommended for the patient to have repeat basic metabolic panel drawn in approximately 3 to 5 days as mentioned above. PHYSICAL EXAMINATION AT THE TIME OF DISCHARGE: Blood pressure 126/59, heart rate of 57 and regular, respiratory rate 16, oxygen saturation 94% on room air, temperature 98.3. General: The patient is a very pleasant 62-year-old male who is in no acute distress. Alert, awake, and oriented x3. HEENT: Head: Atraumatic, normocephalic. Eyes: Pupils are equal and reactive to light and accommodation. Oropharynx is clear. Mucosa moist. Neck: Supple. No JVD. No bruits bilaterally. Cardiovascular: Regular rate and rhythm with 2/6 systolic ejection murmur noted on auscultation of the apex. Respiratory: Clear to auscultation bilaterally. Abdomen: Soft, nontender. Bowel sounds present in all 4 quadrants. Extremities: There is +1 pitting pedal edema, but otherwise there is no clubbing or cyanosis. The right foot has postoperative dressings in place, they were not removed for evaluation by the time of discharge. Neuro Evaluation: Speech clear. Cranial nerves II through XII grossly intact. Motor strength is 5/5 bilaterally. At discharge, the patient is recommended to follow up with Dr. Whitaker next week. The patient is also recommended to follow up with Dr. Cooper in approximately 1 to 2 weeks. The patient is also to follow up with a physician at [facility] for initial history and physical. Basic metabolic panel is recommended to be obtained in approximately 3 to 5 days after discharge. Please note that this is a short summary of the patient's hospitalization. Please refer to further medical records for details. TIME SPENT: Approximately 40 minutes were spent on the patient's discharge. [id number]/[facility] #: [id number] MTDD
== END 2018-06-15 14:05 | DRG 710 ==
LOC: ED 07:12 → MED 09:18
PROVIDERS: ADMIT Internal Medicine; ATTEND Internal Medicine
PROC: 0Y6M0Z9 Detachment at Right Foot, Partial 1st Ray, Open Approach (ICD-10-PCS; principal; 2018-06-05 11:00)
DX: A41.02 Sepsis due to Methicillin resistant Staphylococcus aureus (principal); M86.171 Other acute osteomyelitis, right ankle and foot; N17.9 Acute kidney failure, unspecified; M86.671 Other chronic osteomyelitis, right ankle and foot; I13.0 Hypertensive heart and chronic kidney disease with heart failure and stage 1 through stage 4 chronic kidney disease, or unspecified chronic kidney disease; I50.30 Unspecified diastolic (congestive) heart failure; R65.20 Severe sepsis without septic shock; E11.69 Type 2 diabetes mellitus with other specified complication; E11.40 Type 2 diabetes mellitus with diabetic neuropathy, unspecified; E78.5 Hyperlipidemia, unspecified; F41.9 Anxiety disorder, unspecified; M10.9 Gout, unspecified; E11.22 Type 2 diabetes mellitus with diabetic chronic kidney disease; N18.3 Chronic kidney disease, stage 3 (moderate); E11.43 Type 2 diabetes mellitus with diabetic autonomic (poly)neuropathy; K31.84 Gastroparesis; E11.21 Type 2 diabetes mellitus with diabetic nephropathy; J44.9 Chronic obstructive pulmonary disease, unspecified; E07.9 Disorder of thyroid, unspecified; F41.0 Panic disorder [episodic paroxysmal anxiety]; B95.62 Methicillin resistant Staphylococcus aureus infection as the cause of diseases classified elsewhere; E11.621 Type 2 diabetes mellitus with foot ulcer; L97.519 Non-pressure chronic ulcer of other part of right foot with unspecified severity; E66.9 Obesity, unspecified; E87.5 Hyperkalemia; I34.0 Nonrheumatic mitral (valve) insufficiency; Z88.8 Allergy status to other drugs, medicaments and biological substances; Z82.5 Family history of asthma and other chronic lower respiratory diseases; Z82.49 Family history of ischemic heart disease and other diseases of the circulatory system; Z87.01 Personal history of pneumonia (recurrent); Z68.32 Body mass index [BMI] 32.0-32.9, adult; Z79.82 Long term (current) use of aspirin
CPT/HCPCS: 36415; 80048; 80053; 80202; 82565; 83036; 83605; 84520; 85025; 85027; 85610; 85652; 85730; 86140; 87040; 87070; 87073; 87077; 87150; 87186; 87205; 88305; 88311; 93005; 93306; 96374; 99284; A9270-GY; C8929; G8978-GP-CJ; G8979-GP-CI; J0692; J1644; J2020; J2250; J2270; J2405; J2543; J2704; J3010; J3370

== ENCOUNTER 2018-07-29 03:16 | Emergency (ER) | payer OTHER ==
[2018-07-29] MEDS ORDERED: LORazepam INJ* 2 MG/ML 1 ML VIAL IV PUSH ONE (03:31)
[2018-07-29] MEDS ORDERED: Morphine VIAL* 4 MG/ML VIAL (1 ml vial) IV ONE (03:31)
[2018-07-29] MEDS ORDERED: Ondansetron INJ* 2 MG/ML VIAL IV ONE (03:32)
--- NOTE | 2018-07-29 03:41 | ED ---
Back Pain - HPI Summary HPI Summary: A 62 y/o male brought in by [place] ambulance presents to [facility] with a chief complaint of lower back pain since getting up out of bed to go to the bathroom at 02:00 07/29/18. The patient rates his pain as a constant 6/10. He couldnt stand up or walk due to a sharp pain. He denies numbness or tingling. He sees Dr. Cooper and has a dressing over his right first toe. He comes [place] [facility] [place], and Saturdays for IV abx. He is able to urinate OK, last urinating 30 minutes [employer]ITION [employer]INE [employer]PER[employer]. - History of Current Complaint Chief Complaint: EDBackInjuryPain Stated Complaint: BACK PAIN Time Seen by Provider: 07/29/18 03:18 Hx Obtained From: Patient, EMS Onset/Duration: Sudden Onset, Lasting Hours, Still Present Onset/Duration: Started Hours Ago, Still Present Timing: Constant, Lasting Hours Back Pain Location: Is Discrete @ - lower back Severity Initially: Moderate Severity Currently: Moderate Pain Intensity: 6 Pain Scale Used: 0-10 Numeric Character: Sharp Aggravating Symptom(s): Movement Alleviating Symptom(s): Nothing Associated Signs And Symptoms: Negative: Fever, Numbness, Tingling - Allergies/Home Medications Allergies/Adverse Reactions: Allergies Allergy/AdvReac Type Severity Reaction Status Date / Time lisinopril Allergy Difficulty Verified 07/28/18 14:50 Breathing niacin Allergy Rash Verified 07/28/18 14:50 Home Medications: Home Medications Atorvastatin* [Lipitor*] 80 mg PO DAILY 07/29/18 [History Confirmed 07/29/18] Butalbital/Acetaminophen [Butalbital/Acetaminophen 50-325 mg] 1 tab PO Q8HR PRN 07/29/18 [History Confirmed 07/29/18] Cyclobenzaprine TAB* [Flexeril 10 MG TAB*] 10 mg PO TID PRN 07/29/18 [History Confirmed 07/29/18] Metoprolol Tartrate TAB* [Lopressor TAB*] 75 mg PO BID 07/29/18 [History Confirmed 07/29/18] metFORMIN* [Glucophage 1000 MG TAB *] 1,000 mg PO BID 07/29/18 [History Confirmed 07/29/18] PMH/Surg Hx/FS Hx/Imm Hx Endocrine/Hematology History: Reports: Hx Diabetes - TYPE 2 / ON ORAL MEDS, Hx Thyroid Disease Cardiovascular History: Reports: Hx Angina, Hx Hypercholesterolemia, Hx Hypertension Denies: Hx Coronary Artery Disease, Hx Myocardial Infarction, Hx Pacemaker/ ICD, Hx Valvular Heart Disease, Other Cardiovascular Problems/Disorders Respiratory History: Reports: Hx Chronic Obstructive Pulmonary Disease (COPD), Hx Pneumonia, Other Respiratory Problems/Disorders - uses albuterol inhaler at home Denies: Hx Asthma GI History: Denies: Hx Ulcer History: Reports: Other Problems/Disorders - Chronic kidney disease stage 3 Musculoskeletal History: Reports: Hx Gout, Other Musculoskeletal History - HIP PAIN Denies: Hx Arthritis, Hx Osteoporosis, Hx Scoliosis Sensory History: Reports: Hx Contacts or Glasses Denies: Hx Hearing Aid Opthamlomology History: Reports: Hx Contacts or Glasses Neurological History: Reports: Hx Headaches Denies: Other Neuro Impairments/Disorders Psychiatric History: Reports: Hx Anxiety, Hx Panic Disorder - Surgical History Surgery Procedure, Year, and Place: POLYPS REMOVED INTESTINE. APPENDECTOMY. KNEE SURGERY 1998 Hx Anesthesia Reactions: No Infectious Disease History: No Infectious Disease History: Denies: Hx Clostridium Difficile, Hx Hepatitis, Hx Human Immunodeficiency Virus (HIV), Hx of Known/Suspected MRSA, Hx Shingles, Hx Tuberculosis, Hx Known/ Suspected VRE, Hx Known/Suspected VRSA, History Other Infectious Disease, Traveled Outside the [place] in Last 30 Days - Family History Known Family History: Positive: Cardiac Disease, Hypertension, Other - father - asthma, emphysema - Social History Alcohol Use: None Alcohol Amount: quit Hx Substance Use: No Substance Use Type: Reports: None Hx Tobacco Use: No Smoking Status (MU): Never Smoked Tobacco Review of Systems Negative: Fever Positive: no symptoms reported Positive: Myalgia - lower back pain Negative: Paresthesia, Numbness All Other Systems Reviewed And Are Negative: Yes Physical Exam - Summary Physical Exam Summary: VITAL SIGNS: Reviewed. GENERAL: Patient is a well-developed and nourished MALE who is lying comfortable in the stretcher. Patient is not in any acute respiratory distress. HEAD AND FACE: No signs of trauma. No ecchymosis, hematomas or skull depressions. No sinus tenderness. EYES: PERRLA, EOMI x 2, No injected conjunctiva, no nystagmus. EARS: Hearing grossly intact. Ear canals and tympanic membranes are within normal limits. MOUTH: Oropharynx within normal limits. NECK: Supple, trachea is midline, no adenopathy, no JVD, no carotid bruit, no c- spine tenderness, neck with full ROM. CHEST: Symmetric, no tenderness at palpation LUNGS: Clear to auscultation bilaterally. No wheezing or crackles. CVS: Regular rate and rhythm, S1 and S2 present, no murmurs or gallops appreciated. ABDOMEN: Soft, non-tender. No signs of distention. No rebound no guarding, and no masses palpated. Bowel sounds are normal. EXTREMITIES: Tenderness right lower back, bilateral straight leg test is positive in both legs, dressing over right first toe. NEURO: Alert and oriented x 3. No acute neurological deficits. Speech is normal and follows commands. SKIN: Dry and warm Triage Information Reviewed: Yes Vital Signs On Initial Exam: Initial Vitals Temp Pulse Resp BP Pulse Ox 98 F 67 18 143/81 99 07/29/18 03:20 07/29/18 03:20 07/29/18 03:20 07/29/18 03:20 07/29/18 03:20 Vital Signs Reviewed: Yes Diagnostics - Vital Signs Vital Signs Temp Pulse Resp BP Pulse Ox 07/29/18 03:20 98 F 67 18 143/81 99 - Laboratory Lab Statement: Any lab studies that have been ordered have been reviewed, and results considered in the medical decision making process. Re-Evaluation - Re-Evaluation First Eval Re-Evaluation Time: 04:24 Change: Improved Comment: Patient is feeling better and able to ambulate with a walker. Back Pain Course/Dx - Course Course Of Treatment: A 62 y/o male brought in by [place] ambulance presents to [facility] with a chief complaint of lower back pain since getting up out of bed to go to the bathroom at 02:00 07/29/18. The physical exam revealed tenderness right lower back, bilateral straight leg test is positive in both legs, dressing over right first toe. In the ED course the patient was given Morphine IV, Zofran IV and Ativan IV. Upon re-eval the patient is feeling better and able to ambulate with a walker. The patient will be discharged with a prescription for Percocet. Strict return precautions were given and he was instucted to follow up with his PCP in 1-2 days. The patient is agreeable with this plan. - Diagnoses Provider Diagnoses: Low back pain Discharge - Sign-Out/Discharge Documenting (check all that apply): Patient Departure - DC - Discharge Plan Condition: Stable Disposition: HOME Prescriptions: oxyCODONE/Acetamin 5/325 MG* [Percocet 5/325 TAB*] 1 tab PO Q6H PRN #14 tab MDD 4 PRN Reason: Pain Referrals: Daiana Bautista [Primary Care Provider] - (1-2 days) Additional Instructions: RETURN TO THE EMERGENCY DEPARTMENT FOR CHANGING OR WORSENING SYMPTOMS. FOLLOW UP WITH PCP IN 1-2 DAYS. - Billing Disposition and Condition Condition: STABLE Disposition: Home - Attestation Statements Document Initiated by Debbie: Yes Documenting Karloibe: Cade Peace Provider For Whom Debbie is Documenting (Include Credential): Harleen Lacey MD Scribe Attestation: Cade Reyes scribed for Harleen Lacey MD on 07/29/18 at 0459. Scribe Documentation Reviewed: Yes Provider Attestation: The documentation as recorded by the Cade gifford accurately reflects the service I personally performed and the decisions made by Khurram avelar MD Status of Scrmarcos Document: Viewed
--- OUTSIDE RECORDS SUMMARY | 2018-07-29 04:24 | XMS REPORT | Continuity of Care Document ---
:1955 External Reference #:[id number] Author Name Cheslea Clark Care Team Providers Name Role Phone Daiana Bautista, LIDA Primary Care Physician Unavailable Payers Type Date Identification Numbers Payment Provider Subscriber Policy Number: [id number] Josef Louie E Lorena LEO Group Name: [id number] [address] PayID: [id number] [place] [address] Expires: 2016 Policy Number: [id number] Va/ Non Va Care Louie Carrillo III PayID: [id number] [address] [address] [place] [address] Advance Directives Description No Information Available Problems Date Description Provider Status Onset: 06/09/2018 Sepsis due to methicillin resistant Cortney Hester M.D. Active Staphylococcus aureus Onset: 06/09/2018 Acute osteomyelitis of ankle and/or Cortney Hester M.D. Active foot Onset: 06/09/2018 Type 2 diabetes mellitus Cortney Hester M.D. Active Onset: 06/09/2018 Nephrotic syndrome Cortney Hester M.D. Active Onset: 06/09/2018 Chronic kidney disease stage 3 Cortney Hester M.D. Active Onset: 06/09/2018 Acute renal failure syndrome Cortney Hester M.D. Active Onset: 06/09/2018 Acquired absence of other right toe(s) Cortney Hester M.D. Active Onset: 06/10/2018 Osteomyelitis, unspecified Simran Zhang DO Active Onset: 06/11/2018 Unspecified diastolic (congestive) Simran Zhang DO Active heart failure Family History Date Family Member(s) Problem(s) Comments General Diabetes General Heart Disease General Hypertension Social History Type Date Description Comments Sex Unknown Lives With Alone Occupation Unemployed ETOH Use Denies alcohol use Tobacco Use Start: Unknown Patient has never smoked Smoking Status Reviewed: 06/30/18 Patient has never smoked Exercise Type/Frequency Does not exercise Allergies, Adverse Reactions, Alerts Date Description Reaction Status Severity Comments 01/15/2017 Blood Pressure Med. Active pt didnt know what med. Medications Medication Date Status Form Strength Qnty SIG Indications Ordering Provider Linezolid 06/30/ Active Tablets 600mg 42tabs one by [id number] Arden DKedar 2018 mouth [place], twice a M.D. day Ciprofloxacin HCL 06/30/ Active Tablets 250mg 30tabs one by [id number] Arden D. 2018 mouth [place], twice M.D. daily Doxycycline 06/15/ Active Capsules 100mg one Unknown Hyclate 2018 tablet twice daily for 21 days (per [facility] DC summary) Metoprolol / Active Tablets 75mg 1 by Unknown Tartrate 0000 mouth twice a day Amlodipine / Active Tablets 10mg 1 by Unknown Besylate 0000 mouth every day Cyclobenzaprine / Active Tablets 10mg one by Unknown HCL 0000 mouth three times a day as needed spasm Atorvastatin / Active Tablets 80mg 1 by Unknown Calcium 0000 mouth every day Aspirin 00/ Active Tablets 1 by Unknown 0000 mouth every day Metformin HCL / Active Tablets 1000mg 1 by Unknown 0000 mouth twice a day Vitamin D / Active Unknown 0000 Imdur / Active Unknown 0000 Levothyroxine / Active Tablets 25mcg 1 by Unknown Sodium 0000 mouth every day Metoprolol / Active Tablets ER 100mg 1 by Unknown Succinate ER 0000 24HR mouth every day Calcitriol / Active Capsules 0.25mcg 1 by Unknown 0000 mouth every day Furosemide 00/ Active Tablets 40mg 1 by Unknown 0000 mouth every day Zaroxolyn / Active Tablets 5mg 1 tab by Unknown 0000 mouth daily 30 min before lasix Albuterol Sulfate / Active Unknown 0000 Butalbital-Acetam / Active Tablets 50-325mg 1 tab by Unknown inophen 0000 mouth every 8 hours as needed for severe headahce s, no not take on days when using mapap Cipro / Hx Tablets 500mg 1 by Unknown 0000 - mouth 02/03/ twice a 2016 day Doxycycline / Hx Capsules 100mg 1 by Unknown Monohydrate 0000 - mouth 02/03/ twice a 2016 day Colchicine / Hx Capsules 0.6mg take one Unknown 0000 - by mouth 02/03/ every 2016 day Immunizations Description No Information Available Vital Signs Date Vital Result Comment 06/30/2018 12:11pm Height 70 inches 5'10" Weight 218.00 lb Heart Rate 74 /min BP Systolic 150 mmHg BP Diastolic 80 mmHg Respiratory Rate 14 /min Pain Level 0 BMI (Body Mass Index) 31.3 kg/m2 06/30/2018 9:13am Height 70 inches 5'10" Weight 218.00 lb Heart Rate 60 /min BP Systolic Sitting 154 mmHg BP Diastolic Sitting 80 mmHg Respiratory Rate 14 /min Body Temperature 97.1 F BMI (Body Mass Index) 31.3 kg/m2 06/23/2018 10:18am Height 70 inches 5'10" Heart Rate 64 /min BP Systolic 142 mmHg BP Diastolic 92 mmHg Body Temperature 97.2 F Pain Level 0 06/18/2018 12:05pm Height 70 inches 5'10" Heart Rate 60 /min BP Systolic 124 mmHg BP Diastolic 70 mmHg Body Temperature 97.9 F Pain Level 0 02/04/2017 8:41am Height 70 inches 5'10" Weight 211.38 lb Heart Rate 60 /min BP Systolic Sitting 154 mmHg BP Diastolic Sitting 96 mmHg Respiratory Rate 14 /min Body Temperature 97.2 F BMI (Body Mass Index) 30.3 kg/m2 01/15/2017 10:48am Height 70 inches 5'10" Weight 217.00 lb Heart Rate 66 /min BP Systolic 130 mmHg BP Diastolic 80 mmHg Respiratory Rate 15 /min Body Temperature 97.8 F Pain Level 4 BMI (Body Mass Index) 31.1 kg/m2 Results Description No Information Available Procedures Date Code Description Status 06/05/2018 54477 ECHO Transthorasic Realtime 2D W Doppler & Color Flow Hosp Completed 06/05/2018 23311 Amputation Toe MP JT Completed 06/05/2018 38069 Amputation Toe MP JT Completed 08/24/2017 19112 ECHO Transthorasic Realtime 2D W Doppler & Color Flow Hosp Completed 12/29/2016 14305 EKG, Interpretation Only Completed 02/20/2016 37334 EEG Recording Awake & Asleep Completed 02/19/2016 78758 EEG Recording Awake & Drowsy Completed 10/12/2013 28849 Treadmill Interp/Report Only Completed 10/12/2013 40305 Stress Test Supervsn W/Out I/R Completed Encounters Type Date Location Provider Dx Diagnosis Office Visit 06/18/2018 Orthopedic Bhaskar Whitaker M86.671 Other chronic 11:15a Services Of Nick Ibarra osteomyelitis, right ankle and foot Office Visit 06/15/2018 [facility] Arden Watson M86.671 Other chronic 12:11p Infectious Fred Pinto osteomyelitis, Diseases right ankle and foot Z89.411 Acquired absence of right great toe Office Visit 06/15/2018 [facility] Emily A41.02 Sepsis due to 8:50a Assoc,asher Steel M.D. Methicillin Hospitalists resistant Staphylococcus aureus N17.9 Acute kidney failure, unspecified N18.3 Chronic kidney disease, stage 3 (moderate) E11.22 Type 2 diabetes mellitus w diabetic chronic kidney disease Z89.421 Acquired absence of other right toe(s) M86.9 Osteomyelitis, unspecified E11.69 Type 2 diabetes mellitus with other specified complication Office Visit 06/13/2018 8:49a [facility] Simran N17.9 Acute kidney Assoc,asher Zhang DO failure, Hospitalists unspecified A41.02 Sepsis due to Methicillin resistant Staphylococcus aureus N18.3 Chronic kidney disease, stage 3 (moderate) E11.69 Type 2 diabetes mellitus with other specified complication E11.22 Type 2 diabetes mellitus w diabetic chronic kidney disease M86.9 Osteomyelitis, unspecified I50.30 Unspecified diastolic (congestive) heart failure Office Visit 06/11/2018 [facility] Arden Watson E11.69 Type 2 diabetes 12:05p For Ivan Pinto M.D. 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 Office Visit 06/11/2018 8:48a [facility] Simran N17.9 Acute kidney Assoc,asher Zhang DO failure, Hospitalists unspecified A41.02 Sepsis due to Methicillin resistant Staphylococcus aureus N18.3 Chronic kidney disease, stage 3 (moderate) M86.9 Osteomyelitis, unspecified E11.69 Type 2 diabetes mellitus with other specified complication E11.22 Type 2 diabetes mellitus w diabetic chronic kidney disease I50.30 Unspecified diastolic (congestive) heart failure Office Visit 06/10/2018 8:48a [facility] Simran N17.9 Acute kidney Assoc,pc Vicente, DO failure, Hospitalists unspecified N18.3 Chronic kidney disease, stage 3 (moderate) M86.9 Osteomyelitis, unspecified A41.02 Sepsis due to Methicillin resistant Staphylococcus aureus E11.69 Type 2 diabetes mellitus with other specified complication E11.22 Type 2 diabetes mellitus w diabetic chronic kidney disease I50.30 Unspecified diastolic (congestive) heart failure [facility] Sepsis due to 8:48a Assasher servin M.D. Methicillin Hospitalists resistant Staphylococcus aureus N17.9 Acute kidney failure, unspecified M86.171 Other acute osteomyelitis, right ankle and foot E11.69 Type 2 diabetes mellitus with other specified complication N04.9 Nephrotic syndrome with unspecified morphologic changes E11.22 Type 2 diabetes mellitus w diabetic chronic kidney disease N18.3 Chronic kidney disease, stage 3 (moderate) [facility] A[facility].02 Sepsis due to 8:47a asher Wells M.D. Methicillin Hospitalists resistant Staphylococcus aureus N17.9 Acute kidney failure, unspecified M86.171 Other acute osteomyelitis, right ankle and foot E11.69 Type 2 diabetes mellitus with other specified complication N04.9 Nephrotic syndrome with unspecified morphologic changes E11.22 Type 2 diabetes mellitus w diabetic chronic kidney disease N18.3 Chronic kidney disease, stage 3 (moderate) Office Visit 06/08/2018 [facility] Arden Watson E11.69 Type 2 diabetes 10:49a For Infectious Fred Pinto mellitus with Diseases other specified complication M86.171 Other acute osteomyelitis, right ankle and foot N17.9 Acute kidney failure, unspecified N04.9 Nephrotic syndrome with unspecified morphologic changes R78.81 Bacteremia E11.21 Type 2 diabetes mellitus with diabetic nephropathy Office [facility]/07[facility]2018 [facility] A41.02 Sepsis due to 8:47a Assasher servin M.D. Methicillin Hospitalists resistant Staphylococcus aureus N17.9 Acute kidney failure, unspecified N04.9 Nephrotic syndrome with unspecified morphologic changes M86.171 Other acute osteomyelitis, right ankle and foot E11.69 Type 2 diabetes mellitus with other specified complication E11.22 Type 2 diabetes mellitus w diabetic chronic kidney disease N18.3 Chronic kidney disease, stage 3 (moderate) Office Visit 06/06/2018 [facility] A41.02 Sepsis due to 8:47a asher Wells M.D. Methicillin Hospitalists resistant Staphylococcus aureus N17.9 Acute kidney failure, unspecified M86.171 Other acute osteomyelitis, right ankle and foot E11.69 Type 2 diabetes mellitus with other specified complication Z89.421 Acquired absence of other right toe(s) N04.9 Nephrotic syndrome with unspecified morphologic changes E11.22 Type 2 diabetes mellitus w diabetic chronic kidney disease N18.3 Chronic kidney disease, stage 3 (moderate) Office Visit 06/05/2018 [facility] A41.02 Sepsis due to 8:47a asher Wells M.D. Methicillin Hospitalists resistant Staphylococcus aureus N17.9 Acute kidney failure, unspecified M86.171 Other acute osteomyelitis, right ankle and foot E11.69 Type 2 diabetes mellitus with other specified complication N04.9 Nephrotic syndrome with unspecified morphologic changes E11.22 Type 2 diabetes mellitus w diabetic chronic kidney disease N18.3 Chronic kidney disease, stage 3 (moderate) Office Visit 06/04/2018 8:46a [facility] N17.9 Acute kidney Assasher servin M.D. failure, Hospitalists unspecified M86.171 Other acute osteomyelitis, right ankle and foot N18.3 Chronic kidney disease, stage 3 (moderate) E11.22 Type 2 diabetes mellitus w diabetic chronic kidney disease N04.9 Nephrotic syndrome with unspecified morphologic changes E11.69 Type 2 diabetes mellitus with other specified complication Office Visit 11/07/2017 8:34a [facility] Emily Steel, R06.02 Shortness of asher Wells M.D. breath Hospitalists Office Visit 11/06/2017 8:33a [facility] Emily Steel, R06.02 Shortness of Assasher servin M.D. breath Hospitalists E11.21 Type 2 diabetes mellitus with diabetic nephropathy R05 Cough N18.4 Chronic kidney disease, stage 4 (severe) Office Visit 11/05/2017 8:33a [facility] Jt R06.02 Shortness of Assoc,HOMAR Blanc breath Hospitalists E11.21 Type 2 diabetes mellitus with diabetic nephropathy R05 Cough N18.4 Chronic kidney disease, stage 4 (severe) Office Visit 2017 8:32a [facility] Jt R06.02 Shortness of Assoc,HOMAR Blanc breath Hospitalists E11.21 Type 2 diabetes mellitus with diabetic nephropathy R05 Cough N18.4 Chronic kidney disease, stage 4 (severe) Office Visit 11/03/2017 8:31a [facility] Jt R06.02 Shortness of Assoc,HOMAR Blanc breath Hospitalists E11.21 Type 2 diabetes mellitus with diabetic nephropathy R05 Cough N18.4 Chronic kidney disease, stage 4 (severe) Office Visit 11/02/2017 [facility] J44.1 Chronic 8:29a Assasher servin, ALISON obstructive Hospitalists pulmonary disease w (acute) exacerbation R05 Cough R06.02 Shortness of breath [facility] R60.1 Generalized edema 9:20a asher Wells M.D. Hospitalists E11.22 Type 2 diabetes mellitus w diabetic chronic kidney disease N18.3 Chronic kidney disease, stage 3 (moderate) I10 Essential (primary) hypertension [facility] R60.1 Generalized edema 9:19a asher Wells M.D. 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 Hospitalists E11.22 Type 2 diabetes mellitus w diabetic chronic kidney disease N18.3 Chronic kidney disease, stage 3 (moderate) I10 Essential (primary) hypertension Office Visit 02/04/2017 8:30a [facility] Arden Watson L03.113 Cellulitis of For Ivan Pinto M.D. right upper limb Diseases E11.40 Type 2 diabetes mellitus with diabetic neuropathy, unsp Office Visit 01/15/2017 Orthopedic Guillermina L03.113 Cellulitis of 10:30a Services Of Fred Horta right upper limb C.M.A. 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 right upper limb Hospitalists E11.40 Type 2 diabetes mellitus with diabetic neuropathy, unsp I10 Essential (primary) hypertension N17.9 Acute kidney failure, unspecified Office Visit 01/07/2017 Orthopedic Grace L03.113 Cellulitis of 10:07a Services Of C.MKedarANIRALI Hernandez right upper limb Office Visit 01/07/2017 [facility] Nancie Amaral, L03.113 Cellulitis of 8:29a Assmalathipc N.P. right upper limb Hospitalists N17.9 Acute kidney failure, unspecified E11.40 Type 2 diabetes mellitus with diabetic neuropathy, unsp I10 Essential (primary) hypertension Office Visit 01/06/2017 8:26a [facility] Nancie Munir, L03.113 Cellulitis of Assoc,pc N.P. 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 right upper limb Hospitalists N17.9 Acute kidney failure, unspecified E11.40 Type 2 diabetes mellitus with diabetic neuropathy, unsp I10 Essential (primary) hypertension Office Visit 01/04/2017 [facility], L03.113 Cellulitis of Assoc,pc N.P. right upper limb Hospitalists N17.9 Acute kidney failure, unspecified E11.40 Type 2 diabetes mellitus with diabetic neuropathy, unsp I10 Essential (primary) hypertension Office Visit 01/03/2017 10:11a Orthopedic Bayron F M79.89 Other specified Services Of MD Ruchi soft tissue C.M.A. disorders Office Visit 01/03/2017 2:06p [facility] Arden Watson 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 Infectious Fred Pinto disorders Diseases L03.113 Cellulitis of right upper limb R79.82 Elevated C-reactive protein (CRP) E11.9 Type 2 diabetes mellitus without complications Office Visit 01/03/2017 [facility] L03.113 Cellulitis of 8:43a asher Wells NP right upper limb Hospitalists N17.9 Acute kidney failure, unspecified E11.40 Type 2 diabetes mellitus with diabetic neuropathy, unsp I10 Essential (primary) hypertension Office Visit 01/02/2017 [facility] L03.113 Cellulitis of 8:43a asher Wells, ALISON right upper limb Hospitalists N17.9 Acute kidney failure, unspecified E11.40 Type 2 diabetes mellitus with diabetic neuropathy, unsp I10 Essential (primary) hypertension Office Visit 01/02/2017 11:06a [facility] Arden Watson 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 Infectious Fred Pinto disorders Diseases L03.113 Cellulitis of right upper limb E11.9 Type 2 diabetes mellitus without complications M10.9 Gout, unspecified Office Visit 01/01/2017 [facility] L03.113 Cellulitis of 8:42a Assoc,asher [place], ORTHOTIC PRACTITIONER right upper limb Hospitalists N17.9 Acute kidney failure, unspecified E11.40 Type 2 diabetes mellitus with diabetic neuropathy, unsp I10 Essential (primary) hypertension Office Visit 01/01/2017 10:58a [facility] Arden Watson 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 Infectious Fred Pinto disorders Diseases L03.113 Cellulitis of right upper limb E11.9 Type 2 diabetes mellitus without complications M10.9 Gout, unspecified Office Visit 12/31/2016 [facility] L03.113 Cellulitis of 8:42a Assoc,asher [place], ORTHOTIC PRACTITIONER right upper limb Hospitalists N17.9 Acute kidney failure, unspecified E11.40 Type 2 diabetes mellitus with diabetic neuropathy, unsp I10 Essential (primary) hypertension Office Visit 12/31/2016 10:53a [facility] Arden Watson 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 Infectious Fred Pinto disorders Diseases M25.421 Effusion, right elbow L03.113 Cellulitis of right upper limb E11.9 Type 2 diabetes mellitus without complications Office Visit 12/30/2016 [facility] L03.113 Cellulitis of 8:41a Assoc,asher [place], ORTHOTIC PRACTITIONER right upper limb Hospitalists N17.9 Acute kidney failure, unspecified E11.40 Type 2 diabetes mellitus with diabetic neuropathy, unsp I10 Essential (primary) hypertension Office Visit 12/30/2016 10:46a [facility] Ari Watson M79.631 Pain in right Infectious Fred Pinto forearm Diseases M79.89 Other specified soft tissue disorders E11.9 Type 2 diabetes mellitus without complications Office Visit 12/29/2016 [facility] L03.113 Cellulitis of 8:40a Assoc,pc [place], ORTHOTIC PRACTITIONER right upper limb Hospitalists N17.9 Acute kidney failure, unspecified E11.40 Type 2 diabetes mellitus with diabetic neuropathy, unsp I10 Essential (primary) hypertension Office Visit 02/21/2016 [facility] R41.82 Altered mental 12:40p Assoc,asher Nielsen MD status, Hospitalists unspecified E11.8 Type 2 diabetes mellitus with unspecified complications I10 Essential (primary) hypertension M79.605 Pain in left leg Office Visit 02/20/2016 [facility] Matt R41.82 Altered mental 12:38p Assoc,asher Nielsen MD status, Hospitalists unspecified E11.8 Type 2 diabetes mellitus with unspecified complications I10 Essential (primary) hypertension M79.605 Pain in left leg Office Visit 02/19/2016 [facility] Mary R41.82 Altered mental 4:15p Clinic Fred Lees status, unspecified M79.605 Pain in left leg R20.0 Anesthesia of skin Office Visit 02/19/2016 [facility] Eyal M54.16 Radiculopathy, 12:37p Assoc,asher Dixon N.Hussain. lumbar region Hospitalists R41.82 Altered mental status, unspecified I10 Essential (primary) hypertension E11.8 Type 2 diabetes mellitus with unspecified complications Office Visit 10/12/2013 10:54a [facility] 786.51 Pain Precordial Assoc,asher Thurman M.D. Hospitalists 276.1 Hyposmolality & Or Hyponatremia 250.00 Diabetes Mellitus W/O Compl Type II Or Unspec Controlled Office Visit 10/11/2013 10:46a [facility] 786.51 Pain Precordial Assoc,asher Thurman M.D. Hospitalists 276.1 Hyposmolality & Or Hyponatremia 250.00 Diabetes Mellitus W/O Compl Type II Or Unspec Controlled Plan of Treatment Future Appointment(s):07/15/2018 9:10 am - Arden Pinto M.D. [facility]/18/2018 - Bhaskar Whitaker M.D.M86.671 Other chronic osteomyelitis, right ankle and footNew Medication:Linezolid 600 mg - one by mouth twice a dayCiprofloxacin HCL 250 mg - one by mouth twice dailyFollow up:As needed
--- OUTSIDE RECORDS SUMMARY | 2018-07-29 04:24 | XMS REPORT | Continuity of Care Document ---
:1955 External Reference #:[id number] Author Name EmeterioHaylie juarez Care Team Providers Name Role Phone Daiana Bautista FNP Primary Care Physician Unavailable Payers Type Date Identification Numbers Payment Provider Subscriber Policy Number: [id number] Josef Louie Angelita Lorena BAILEY Group Name: [id number] [address] PayID: [id number] [place] [address] Expires: 2016 Policy Number: [id number] Va/ Non Va Care Louie Riddleley LEO PayID: [id number] [address] [address] [place] [address] Advance Directives Description No Information Available Problems [...] Tablets 250mg 30tabs one by M86.671 Arden DKedar 2018 mouth [place], twice M.D. daily Doxycycline 06/15/ Active Capsules 100mg one Unknown Hyclate 2018 tablet twice daily for 21 days (per [facility] [place]) Metoprolol / Active Tablets 75mg [...] Vital Signs Date Vital Result Comment 06/30/2018 9:13am Height 70 inches 5'10" Weight [...] Available Procedures Date Code Description Status 06/05/2018 72700 ECHO Transthorasic Realtime 2D W Doppler & Color Flow Hosp Completed 06/05/2018 13439 Amputation Toe MP JT Completed 06/05/2018 99130 Amputation Toe MP JT Completed 08/24/2017 83324 ECHO Transthorasic Realtime 2D W Doppler & Color Flow Hosp Completed 12/29/2016 27721 EKG, Interpretation Only Completed 02/20/2016 09681 EEG Recording Awake & Asleep Completed 02/19/2016 95141 EEG Recording Awake & Drowsy Completed 10/12/2013 47324 Treadmill Interp/Report Only Completed 10/12/2013 31000 Stress Test Supervsn W/Out I/R Completed Encounters Type Date Location Provider Dx Diagnosis Office Visit 06/18/2018 Orthopedic Bhaskar Whitaker, M86.671 Other chronic 11:15a Services Of Nick Ibarra osteomyelitis, right ankle and foot Office Visit 06/15/2018 [facility] For Arden Watson M86.671 Other chronic 12:11p Infectious Fred Pinto osteomyelitis, Diseases right ankle and foot 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 Methicillin Hospitalists resistant Staphylococcus aureus N17.9 Acute kidney failure, unspecified N18.3 Chronic kidney disease, stage 3 (moderate) E11.22 Type 2 diabetes mellitus w diabetic chronic kidney disease Z89.421 Acquired absence of other right toe(s) M86.9 Osteomyelitis, unspecified E11.69 Type 2 diabetes mellitus with other specified complication Office Visit 06/13/2018 8:49a [facility] Simran N17.9 Acute kidney Assoc,asher Zhang, DO failure, Hospitalists unspecified A41.02 Sepsis due to Methicillin resistant Staphylococcus aureus N18.3 Chronic kidney disease, stage 3 (moderate) E11.69 Type 2 diabetes mellitus with other specified complication E11.22 Type 2 diabetes mellitus w diabetic chronic kidney disease M86.9 Osteomyelitis, unspecified I50.30 Unspecified diastolic (congestive) heart failure Office Visit 06/11/2018 [facility] Arden Watson E11.69 Type 2 diabetes 12:05p For Ivan Pinto M.D. 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 Office Visit 06/11/2018 8:48a [facility] Simran N17.9 Acute kidney Assoc,pc Vicente, DO failure, Hospitalists unspecified A41.02 Sepsis due to Methicillin resistant Staphylococcus aureus N18.3 Chronic kidney disease, stage 3 (moderate) M86.9 Osteomyelitis, unspecified E11.69 Type 2 diabetes mellitus with other specified complication E11.22 Type 2 diabetes mellitus w diabetic chronic kidney disease I50.30 Unspecified diastolic (congestive) heart failure Office Visit 06/10/2018 8:48a [facility] Simran N17.9 Acute kidney Assoc,pc Vicente, DO failure, Hospitalists unspecified N18.3 Chronic kidney disease, stage 3 (moderate) M86.9 Osteomyelitis, unspecified A41.02 Sepsis due to Methicillin resistant Staphylococcus aureus E11.69 Type 2 diabetes mellitus with other specified complication E11.22 Type 2 diabetes mellitus w diabetic chronic kidney disease I50.30 Unspecified diastolic (congestive) heart failure Office [facility] 06/09[facility] A41.02 Sepsis due to 8:48a Assocasher M.D. Methicillin Hospitalists resistant Staphylococcus aureus N17.9 Acute kidney failure, unspecified M86.171 Other acute osteomyelitis, right ankle and foot E11.69 Type 2 diabetes mellitus with other specified complication N04.9 Nephrotic syndrome with unspecified morphologic changes E11.22 Type 2 diabetes mellitus w diabetic chronic kidney disease N18.3 Chronic kidney disease, stage 3 (moderate) Office Visit 06/08/2018 [facility] A41.02 Sepsis due to 8:47a Assasher servin M.D. Methicillin Hospitalists resistant Staphylococcus aureus N17.9 Acute kidney failure, unspecified M86.171 Other acute osteomyelitis, right ankle and foot E11.69 Type 2 diabetes mellitus with other specified complication N04.9 Nephrotic syndrome with unspecified morphologic changes E11.22 Type 2 diabetes mellitus w diabetic chronic kidney disease N18.3 Chronic kidney disease, stage 3 (moderate) Office Visit 06/08/2018 [facility] Arden Watson E11.69 Type 2 diabetes 10:49a For Ivan Pinto M.D. mellitus with Diseases other specified complication M86.171 Other acute osteomyelitis, right ankle and foot N17.9 Acute kidney failure, unspecified N04.9 Nephrotic syndrome with unspecified morphologic changes R78.81 Bacteremia E11.21 Type 2 diabetes mellitus with diabetic nephropathy Office Visit 06/07/2018 [facility] A41.02 Sepsis due to 8:47a Assasher servin [...] Office Visit 06/06/2018 [facility] Cortney A41.02 Sepsis due to 8:47a asher Wells [...] disease, stage 3 (moderate) Office Visit 06/05/2018 [facility] A41.02 Sepsis due to 8:47a asher Wells [...] Visit 06/04/2018 8:46a [facility] Cortney N17.9 Acute kidney asher Wells M.D. failure, Hospitalists unspecified M86.171 Other acute osteomyelitis, right ankle and foot N18.3 Chronic kidney disease, stage 3 (moderate) E11.22 Type 2 diabetes mellitus w diabetic chronic kidney disease N04.9 Nephrotic syndrome with unspecified morphologic changes E11.69 Type 2 diabetes mellitus with other specified complication Office Visit 11/07/2017 8:34a [facility] Emily Steel, R06.02 Shortness of Assocasher M.D. breath Hospitalists Office Visit 11/06/2017 8:33a [facility] Emily Steel R06.02 Shortness of Assocasher M.D. breath Hospitalists E11.21 Type 2 diabetes mellitus with diabetic nephropathy R05 Cough N18.4 Chronic kidney disease, stage 4 (severe) Office Visit 11/05/2017 8:33a [facility] Jt R06.02 Shortness of Assocasher PA breath Hospitalists E11.21 Type 2 diabetes mellitus with diabetic nephropathy R05 Cough N18.4 Chronic kidney disease, stage 4 (severe) Office Visit 2017 8:32a [facility] Jt R06.02 Shortness of Assoc,HOMAR Balnc breath Hospitalists E11.21 Type 2 diabetes mellitus with diabetic nephropathy R05 Cough N18.4 Chronic kidney disease, stage 4 (severe) Office Visit 11/03/2017 8:31a [facility] Jt R06.02 Shortness of Assoc,HOMAR Blanc breath Hospitalists E11.21 Type 2 diabetes mellitus with diabetic nephropathy R05 Cough N18.4 Chronic kidney disease, stage 4 (severe) Office Visit 11/02/2017 [facility] J44.1 Chronic 8:29a Assasher servin, ALISON obstructive Hospitalists pulmonary disease w (acute) exacerbation R05 Cough R06.02 Shortness of breath [facility] R60.1 Generalized edema 9:20a asher Wells M.D. Hospitalists E11.22 Type 2 diabetes mellitus w diabetic chronic kidney disease N18.3 Chronic kidney disease, stage 3 (moderate) I10 Essential (primary) hypertension Office Visit 08/27/2017 [facility] Milvia, R60.1 Generalized edema 9:19a asher Wells M.D. Hospitalists E11.22 Type 2 diabetes mellitus w diabetic chronic kidney disease N18.3 Chronic kidney disease, stage 3 (moderate) I10 Essential (primary) hypertension Office Visit 08/26/2017 [facility] Milvia, R60.1 Generalized edema 9:18a asher Wells M.D. Hospitalists E11.22 Type 2 diabetes mellitus w diabetic chronic kidney disease N18.3 Chronic kidney disease, stage 3 (moderate) I10 Essential (primary) hypertension Office Visit 08/25/2017 [facility] Milvia, R60.1 Generalized edema 9:17a asher Wells M.D. Hospitalists E11.22 Type 2 diabetes mellitus w diabetic chronic kidney disease N18.3 Chronic kidney disease, stage 3 (moderate) I10 Essential (primary) hypertension Office Visit 08/24/2017 [facility] Milvia, R60.1 Generalized edema 9:15a asher Wells M.D. Hospitalists E11.22 Type 2 diabetes mellitus w diabetic chronic kidney disease N18.3 Chronic kidney disease, stage 3 (moderate) I10 Essential (primary) hypertension Office Visit 08/23/2017 [facility] Emily Steel, R60.1 Generalized edema 9:14a asher Wells M.D. Hospitalists E11.22 Type 2 diabetes mellitus w diabetic chronic kidney disease N18.3 Chronic kidney disease, stage 3 (moderate) I10 Essential (primary) hypertension Office Visit 02/04/2017 8:30a [facility] Arden Watson L03.113 Cellulitis of For Ivan Pinto M.D. 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 L03.113 Cellulitis of right upper limb M10.9 Gout, unspecified R79.82 Elevated C-reactive protein (CRP) Office Visit 01/08/2017 8:29a [facility] Nancie Amaral, L03.113 Cellulitis of Assoc,pc N.PKedar right upper limb Hospitalists E11.40 Type 2 diabetes mellitus with diabetic neuropathy, unsp I10 Essential (primary) hypertension N17.9 Acute kidney failure, unspecified Office Visit 01/07/2017 Orth[facility] Grace L03.113 Cellulitis of 10:07a Services Of NIRALI Samayoa right upper limb Office Visit 01/07/2017 [facility] Nancie Amaral, L03.113 Cellulitis of 8:29a Assmalathi,pc N.P. right upper limb Hospitalists N17.9 Acute kidney failure, unspecified E11.40 Type 2 diabetes mellitus with diabetic neuropathy, unsp I10 Essential (primary) hypertension Office Visit 01/06/2017 8:26a [facility] Nancie Amaral L03.113 Cellulitis of Assoc,pc N.P. 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.113 Cellulitis of Assoc,pc N.P. right upper limb Hospitalists N17.9 Acute kidney failure, unspecified E11.40 Type 2 diabetes mellitus with diabetic neuropathy, unsp I10 Essential (primary) hypertension Office Visit 01/04/2017 8[facility] L03.113 Cellulitis of Assoc,pc N.P. right upper limb Hospitalists N17.9 Acute kidney failure, unspecified E11.40 Type 2 diabetes mellitus with diabetic neuropathy, unsp I10 Essential (primary) hypertension Office Visit 01/03/2017 10:11a Orthopedic Bayron F M79.89 Other specified Services Of MD Ruchi soft tissue C.M.A. 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 Infectious Fred Pinto disorders Diseases L03.113 Cellulitis of right upper limb R79.82 Elevated C-reactive protein (CRP) E11.9 Type 2 diabetes mellitus without complications Office Visit 01/03/2017 [facility] L03.113 Cellulitis of 8:43a asher Wells, BAKERY CLERK right upper limb Hospitalists N17.9 Acute kidney failure, unspecified E11.40 Type 2 diabetes mellitus with diabetic neuropathy, unsp I10 Essential (primary) hypertension Office Visit 01/02/2017 [facility] L03.113 Cellulitis of 8:43a Assasher servin, BAKERY CLERK right upper limb Hospitalists N17.9 Acute kidney failure, unspecified E11.40 Type 2 diabetes mellitus with diabetic neuropathy, unsp I10 Essential (primary) hypertension Office Visit 01/02/2017 11:06a [facility] Arden Watson 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 Infectious Fred Pinto disorders Diseases L03.113 Cellulitis of right upper limb E11.9 Type 2 diabetes mellitus without complications M10.9 Gout, unspecified Office Visit 01/01/2017 [facility] L03.113 Cellulitis of 8:42a asher Wells, BAKERY CLERK right upper limb Hospitalists N17.9 Acute kidney failure, unspecified E11.40 Type 2 diabetes mellitus with diabetic neuropathy, unsp I10 Essential (primary) hypertension Office Visit 01/01/2017 10:58a [facility] Arden Watson 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 Infectious Fred Pinto disorders Diseases L03.113 Cellulitis of right upper limb E11.9 Type 2 diabetes mellitus without complications M10.9 Gout, unspecified Office Visit 12/31/2016 [facility] L03.113 Cellulitis of 8:42a asher Wells, BAKERY CLERK right upper limb Hospitalists N17.9 Acute kidney failure, unspecified E11.40 Type 2 diabetes mellitus with diabetic neuropathy, unsp I10 Essential (primary) hypertension Office Visit 12/31/2016 10:53a [facility] Arden Watson 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 Infectious Fred Pinto disorders Diseases M25.421 Effusion, right elbow L03.113 Cellulitis of right upper limb E11.9 Type 2 diabetes mellitus without complications Office Visit 12/30/2016 [facility] L03.113 Cellulitis of 8:41a asher Wells, BAKERY CLERK right upper limb Hospitalists N17.9 Acute kidney failure, unspecified E11.40 Type 2 diabetes mellitus with diabetic neuropathy, unsp I10 Essential (primary) hypertension Office Visit 12/30/2016 10:46a [facility] Ari Watson M79.631 Pain in right Infectious Fred Pinto forearm Diseases M79.89 Other specified soft tissue disorders E11.9 Type 2 diabetes mellitus without complications Office Visit 12/29/2016 [facility] L03.113 Cellulitis of 8:40a asher Wells, BAKERY CLERK right upper limb Hospitalists N17.9 Acute kidney failure, unspecified E11.40 Type 2 diabetes mellitus with diabetic neuropathy, unsp I10 Essential (primary) hypertension Office Visit 02/21/2016 [facility] Matt R41.82 Altered mental 12:40p asher Wells MD status, Hospitalists unspecified E11.8 Type 2 diabetes mellitus with unspecified complications I10 Essential (primary) hypertension M79.605 Pain in left leg Office Visit 02/20/2016 [facility] Matt R41.82 Altered mental 12:38p Assoc,asher Nielsen MD status, Hospitalists unspecified E11.8 Type 2 diabetes mellitus with unspecified complications I10 Essential (primary) hypertension M79.605 Pain in left leg Office Visit 02/19/2016 [facility] Mary R41.82 Altered mental 4:15p Clinic Fred Lees status, unspecified M79.605 Pain in left leg R20.0 Anesthesia of skin Office Visit 02/19/2016 [facility] Eyal M54.16 Radiculopathy, 12:37p Assoc,asher Dixon N.P. lumbar region Hospitalists R41.82 Altered mental status, unspecified I10 Essential (primary) hypertension E11.8 Type 2 diabetes mellitus with unspecified complications Office Visit 10/12/2013 10:[facility]a [facility] 786.51 Pain Precordial Assoc,asher Thurman M.D. Hospitalists 276.1 Hyposmolality & Or Hyponatremia 250.00 Diabetes Mellitus W/O Compl Type II Or Unspec Controlled Office Visit 10/11/2013 10:46a [facility] 786.51 Pain Precordial Assoc,asher Thurman M.D. Hospitalists 276.1 Hyposmolality & Or Hyponatremia 250.00 Diabetes Mellitus W/O Compl Type II Or Unspec Controlled Plan of Treatment Future Appointment(s):07/15/2018 9:10 am - Arden Pinto M.D. [facility]/11/2018 - Bhaskar Whitaker M.D.M86.671 Other chronic osteomyelitis, right ankle and footFollow up:1 weekZ89.411 Acquired absence of right great toe
--- OUTSIDE RECORDS SUMMARY | 2018-07-29 04:24 | XMS REPORT | Continuity of Care Document ---
:1955 External Reference #:[id number] Author Name BartonSheila viveros Care Team Providers Name Role Phone Daiana Bautista FNP Primary Care Physician Unavailable Payers Type Date Identification Numbers Payment Provider Subscriber Policy Number: [id number] Josef Carrillo III Group Name: [id number] [address] PayID: [id number] [place] [address] Expires: 2016 Policy Number: [id number] Va/ Non Va Care Louie Angelita Lorena BAILEY PayID: [id number] [address] [address] [place] [address] Advance Directives Description No Information Available Problems [...] Patient has never smoked Smoking Status Reviewed: 07/24/18 Patient has never smoked Exercise Type/Frequency Does not exercise Allergies, Adverse Reactions, Alerts Date Description Reaction Status Severity Comments 01/15/2017 Blood Pressure Med. Active pt didnt know what med. Medications Medication Date Status Form Strength Qnty SIG Indications Ordering Provider Ciprofloxacin HCL 06/30/ Active Tablets 250mg 45tabs one by M86.671 Arden Watson 2018 mouth [place], twice M.D. daily Doxycycline 06/15/ Active Capsules 100mg one Unknown Hyclate 2018 tablet twice daily for 21 days (per [facility] DC summary) Metoprolol / Active Tablets 75mg 1 by Unknown Tartrate 0000 mouth twice a day Amlodipine / Active Tablets 10mg 1 by Unknown Besylate 0000 mouth every day Cyclobenzaprine / Active Tablets 10mg one by Unknown HCL 0000 mouth three times a day as needed spasm Atorvastatin / Active Tablets 80mg 1 by Unknown Calcium 0000 mouth every day Aspirin / Active Tablets 1 by Unknown 0000 mouth [...] by Unknown 0000 mouth every day Furosemide / Active Tablets 40mg 1 by Unknown 0000 mouth every day Zaroxolyn / Active Tablets 5mg 1 tab by Unknown 0000 mouth daily 30 min before lasix Albuterol Sulfate / Active Unknown 0000 Butalbital-Acetam / Active Tablets 50-325mg 1 tab by Unknown inophen 0000 mouth every 8 hours as needed for severe headahce s, no not take on days when using mapap Linezolid 06/30/ Hx Tablets 600mg 42tabs one by [id number] Arden Watson 2017 - mouth [place]queen, 07/24/ twice a M.D. 2018 day Cipro / Hx Tablets 500mg 1 by Unknown 0000 - mouth 02/03/ twice a 2016 day Doxycycline / Hx Capsules 100mg 1 by Unknown Monohydrate 0000 - mouth 02/03/ twice a 2016 day Colchicine / Hx Capsules 0.6mg take one Unknown 0000 - by mouth 02/03/ every 2016 day Immunizations Description No Information Available Vital Signs Date Vital Result Comment 07/24/2018 10:59am Height 70 inches 5'10" Weight 225.38 lb Heart Rate 72 /min BP Systolic Sitting 142 mmHg BP Diastolic Sitting 86 mmHg Respiratory Rate 16 /min Body Temperature 96.3 F BMI (Body Mass Index) 32.3 kg/m2 06/30/2018 12:11pm Height 70 inches 5'10" Weight [...] BMI (Body Mass Index) 31.1 kg/m2 Results Test Date Facility Test Result H/L Range Note Comp Metabolic Panel 07/24/2018 [facility] Sodium 136 mmol/L N 135-[address] [place] [address] [phone] Potassium 4.8 mmol/L N 3.5-5.0 Chloride 101 mmol/L N 101-111 Co2 Carbon Dioxide 25 mmol/L N 22-32 Anion Gap 10 mmol/L N 2-11 Glucose 89 mg/dL N 70-100 Blood Urea Nitrogen 53 mg/dL High 6-24 Creatinine 2.71 mg/dL High 0.67-1.17 BUN/Creatinine Ratio 19.6 N 8-20 Calcium 9.3 mg/dL N 8.6-10.3 Total Protein 7.8 g/dL N 6.4-8.9 Albumin 3.6 g/dL N 3.2-5.2 Globulin 4.2 g/dL High 2-4 Albumin/Globulin Ratio 0.9 Low 1-3 Total Bilirubin 0.30 mg/dL N 0.2-1.0 Alkaline Phosphatase 50 U/L N 34-104 Alt 19 U/L N 7-52 Ast 14 U/L N 13-39 Egfr Non- 24.0 >60 Egfr 29.1 >60 1 CBC Auto Diff 07/24/2018 [facility] White Blood 10.2 10^3/uL N 3.5-10.[address] [place] [address] [phone] Red Blood Count 4.14 10^6/uL N 4.00-5.40 Hemoglobin 10.6 g/dL Low 14.0-18.0 Hematocrit 32 % Low 42-52 Mean Corpuscular Volume 77 fL Low 80-94 Mean Corpuscular Hemoglobin 26 pg Low 27-31 Mean Corpuscular HGB Conc 33 g/dL N 31-36 Red Cell Distribution Width 17 % High 10.5-15 Platelet Count 407 10^3/uL N 150-450 Mean Platelet Volume 7.8 fL N 7.4-10.4 Abs Neutrophils 7.3 10^3/uL N 1.5-7.7 Abs Lymphocytes 1.8 10^3/uL N 1.0-4.8 Abs Monocytes 0.7 10^3/uL N 0-0.8 Abs Eosinophils 0.3 10^3/uL N 0-0.6 Abs Basophils 0.1 10^3/uL N 0-0.2 Abs Nucleated RBC 0 10^3/uL Granulocyte % 71.2 % Lymphocyte % 17.6 % Monocyte % 6.9 % Eosinophil % 3.1 % Basophil % 1.2 % Nucleated Red Blood Cells % 0.1 Laboratory test 07/24/2018 [facility] C Reactive 17.97 mg/L High <8.[address] Protein [place] [id number] [phone] 1 Because ethnic data is not always readily available, this report includes an eGFR for both -Americans and non- Americans. The National Kidney Disease Education Program (NKDEP) does not endorse the use of the MDRD equation for patients that are not between the ages of 18 and 70, are , have extremes of body size, muscle mass, or nutritional status, or are non- or non-. According to the National Kidney Foundation, irrespective of diagnosis, the stage of the disease is based on the level of kidney function: Stage Description GFR(mL/min/1.73 m(2)) 1 Kidney damage with normal or decreased GFR 90 2 Kidney damage with mild decrease in GFR 60-89 3 Moderate decrease in GFR 30-59 4 Severe decrease in GFR 15-29 5 Kidney failure <15 (or dialysis) Procedures Date Code Description Status 06/05/2018 80217 ECHO Transthorasic Realtime 2D W Doppler & Color Flow Hosp Completed 06/05/2018 89477 EKG, Interpretation Only Completed 06/05/2018 06441 Amputation Toe MP JT Completed 06/05/2018 56103 Amputation Toe MP JT Completed 08/24/2017 54488 ECHO Transthorasic Realtime 2D W Doppler & Color Flow Hosp Completed 12/29/2016 56723 EKG, Interpretation Only Completed 02/20/2016 96155 EEG Recording Awake & Asleep Completed 02/19/2016 62380 EEG Recording Awake & Drowsy Completed 10/12/2013 90182 Treadmill Interp/Report Only Completed 10/12/2013 43014 Stress Test Supervsn W/Out I/R Completed Encounters Type Date Location Provider Dx Diagnosis Office Visit 06/30/2018 [facility] Ari Hutchins.671 Other chronic 9:30a Infectious Fred Pinto osteomyelitis, Diseases right ankle and foot 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 ankle and foot Office Visit 06/15/2018 [facility] Arden Watson M86.671 Other chronic 12:11p For Infectious [place], osteomyelitis, right Diseases M.D. 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 Methicillin Hospitalists resistant Staphylococcus aureus N17.9 Acute kidney failure, unspecified N18.3 Chronic kidney disease, stage 3 (moderate) E11.22 Type 2 diabetes mellitus w diabetic chronic kidney disease Z89.421 Acquired absence of other right toe(s) M86.9 Osteomyelitis, unspecified E11.69 Type 2 diabetes mellitus with other specified complication Office Visit 06/13/2018 8:49a [facility]ran N17.9 Acute kidney Assoc,asher Zhang, DO failure, Hospitalists unspecified A41.02 Sepsis due to Methicillin resistant Staphylococcus aureus N18.3 Chronic kidney disease, stage 3 (moderate) E11.69 Type 2 diabetes mellitus with other specified complication E11.22 Type 2 diabetes mellitus w diabetic chronic kidney disease M86.9 Osteomyelitis, unspecified I50.30 Unspecified diastolic (congestive) heart failure Office Visit 06/11/2018 [facility] Arden Watson E11.69 Type 2 diabetes 12:05p For Infectious Fred Pinto 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 Office Visit 06/11/2018 8:48a [facility] Simran N17.9 Acute kidney Assoc,asher Zhang, DO failure, Hospitalists unspecified A41.02 Sepsis due to Methicillin resistant Staphylococcus aureus N18.3 Chronic kidney disease, stage 3 (moderate) M86.9 Osteomyelitis, unspecified E11.69 Type 2 diabetes mellitus with other specified complication E11.22 Type 2 diabetes mellitus w diabetic chronic kidney disease I50.30 Unspecified diastolic (congestive) heart failure Office Visit 06/10/2018 8:48a [facility] N17.9 Acute kidney Assoc,asher Zhang, DO failure, Hospitalists unspecified N18.3 Chronic kidney disease, stage 3 (moderate) M86.9 Osteomyelitis, unspecified A41.02 Sepsis due to Methicillin resistant Staphylococcus aureus E11.69 Type 2 diabetes mellitus with other specified complication E11.22 Type 2 diabetes mellitus w diabetic chronic kidney disease I50.30 Unspecified diastolic (congestive) heart failure Office Visit 06/09/2018 [facility] A41.02 Sepsis due to 8:48a Assocasher M.D. Methicillin Hospitalists resistant Staphylococcus aureus N17.9 Acute kidney failure, unspecified M86.171 Other acute osteomyelitis, right ankle and foot E11.69 Type 2 diabetes mellitus with other specified complication N04.9 Nephrotic syndrome with unspecified morphologic changes E11.22 Type 2 diabetes mellitus w diabetic chronic kidney disease N18.3 Chronic kidney disease, stage 3 (moderate) [facility] A[facility] Sepsis due to 8:47a Assocasher M.D. Methicillin Hospitalists resistant Staphylococcus aureus N17.9 Acute kidney failure, unspecified M86.171 Other acute osteomyelitis, right ankle and foot E11.69 Type 2 diabetes mellitus with other specified complication N04.9 Nephrotic syndrome with unspecified morphologic changes E11.22 Type 2 diabetes mellitus w diabetic chronic kidney disease N18.3 Chronic kidney disease, stage 3 (moderate) Office Visit 06/08/2018 [facility] Arden Watson E11.69 Type 2 diabetes 10:49a For Ivan Pinto M.D. mellitus with Diseases other specified complication M86.171 Other acute osteomyelitis, right ankle and foot N17.9 Acute kidney failure, unspecified N04.9 Nephrotic syndrome with unspecified morphologic changes R78.81 Bacteremia E11.21 Type 2 diabetes mellitus with diabetic nephropathy Office Visit 06/07/2018 [facility] A41.02 Sepsis due to 8:47a Assasher servin M.D. Methicillin Hospitalists resistant Staphylococcus aureus N17.9 Acute kidney failure, unspecified N04.9 Nephrotic syndrome with unspecified morphologic changes M86.171 Other acute osteomyelitis, right ankle and foot E11.69 Type 2 diabetes mellitus with other specified complication E11.22 Type 2 diabetes mellitus w diabetic chronic kidney disease N18.3 Chronic kidney disease, stage 3 (moderate) Office Visit 06/06/2018 [facility] A41.02 Sepsis due to 8:47a Assasher servin [...] disease, stage 3 (moderate) Office Visit [facility]/05[facility]2018 [facility] A41.02 Sepsis due to 8:47a asher Wells M.D. Methicillin Hospitalists resistant Staphylococcus aureus N17.9 Acute kidney failure, unspecified M86.171 Other acute osteomyelitis, right ankle and foot E11.69 Type 2 diabetes mellitus with other specified complication N04.9 Nephrotic syndrome with unspecified morphologic changes E11.22 Type 2 diabetes mellitus w diabetic chronic kidney disease N18.3 Chronic kidney disease, stage 3 (moderate) Office Visit 06/04/2018 10:45a [facility] Bhaskar E11.621 Type 2 diabetes Services Of Fred Whitaker mellitus with C.M.A. foot ulcer M86.171 Other acute osteomyelitis, right ankle and foot L97.518 Non-prs chronic ulcer oth prt right foot with oth severity Office Visit 06/04/2018 8:46a [facility] N17.9 Acute kidney Assocasher M.D. failure, Hospitalists unspecified M86.171 Other acute osteomyelitis, right ankle and foot N18.3 Chronic kidney disease, stage 3 (moderate) E11.22 Type 2 diabetes mellitus w diabetic chronic kidney disease N04.9 Nephrotic syndrome with unspecified morphologic changes E11.69 Type 2 diabetes mellitus with other specified complication Office Visit 11/07/2017 8:34a [facility] Emily Steel, R06.02 Shortness of Assocasher M.D. breath Hospitalists Office Visit 11/06/2017 8:33a [facility] Emily Moranhn, R06.02 Shortness of Assoc,asher Ibarra breath Hospitalists E11.21 Type 2 diabetes mellitus with diabetic nephropathy R05 Cough N18.4 Chronic kidney disease, stage 4 (severe) Office Visit 11/05/2017 8:33a [facility] R06.02 Shortness of Assoc,pc Ricardo PA breath Hospitalists E11.21 Type 2 diabetes mellitus with diabetic nephropathy R05 Cough N18.4 Chronic kidney disease, stage 4 (severe) Office Visit 2017 8:32a [facility] R06.02 Shortness of Assoc,pc Ricardo PA breath Hospitalists E11.21 Type 2 diabetes mellitus with diabetic nephropathy R05 Cough N18.4 Chronic kidney disease, stage 4 (severe) Office Visit 11/03/2017 8:31a [facility] R06.02 Shortness of Assoc,pc Ricardo, PA breath Hospitalists E11.21 Type 2 diabetes mellitus with diabetic nephropathy R05 Cough N18.4 Chronic kidney disease, stage 4 (severe) Office Visit 11/02/2017 [facility] J44.1 Chronic 8:29a Assoc,asher Lord, ALISON obstructive Hospitalists pulmonary disease w (acute) exacerbation R05 Cough R06.02 Shortness of breath Office Visit 08/28/2017 [facility] Steel, R60.1 Generalized edema 9:20a asher Wells M.D. Hospitalists E11.22 Type 2 diabetes mellitus w diabetic chronic kidney disease N18.3 Chronic kidney disease, stage 3 (moderate) I10 Essential (primary) hypertension Office Visit 08/27/2017 [facility] Steel, R60.1 Generalized edema 9:19a asher Wells M.D. Hospitalists E11.22 Type 2 diabetes mellitus w diabetic chronic kidney disease N18.3 Chronic kidney disease, stage 3 (moderate) I10 Essential (primary) hypertension Office Visit 08/26/2017 [facility] Emily Steel, R60.1 Generalized edema 9:18a asher Wells M.D. Hospitalists E11.22 Type 2 diabetes mellitus w diabetic chronic kidney disease N18.3 Chronic kidney disease, stage 3 (moderate) I10 Essential (primary) hypertension Office Visit 08/25/2017 [facility] Emily Steel, R60.1 Generalized edema 9:17a asher Wells M.D. Hospitalists E11.22 Type 2 diabetes mellitus w diabetic chronic kidney disease N18.3 Chronic kidney disease, stage 3 (moderate) I10 Essential (primary) hypertension [facility] Generalized edema 9:15a asher Wells M.D. Hospitalists E11.22 Type 2 diabetes mellitus w diabetic chronic kidney disease N18.3 Chronic kidney disease, stage 3 (moderate) I10 Essential (primary) hypertension [facility] R60.1 Generalized edema 9:14a asher Wells M.D. Hospitalists E11.22 Type 2 diabetes mellitus w diabetic chronic kidney disease N18.3 Chronic kidney disease, stage 3 (moderate) I10 Essential (primary) hypertension Office Visit 02/04/2017 8:30a [facility] Arden Watson L03.113 Cellulitis of For Infectious Fred Pinto right upper limb Diseases E11.40 Type 2 diabetes mellitus with diabetic neuropathy, unsp Office Visit 01/15/2017 [facility] Guillermina L03.113 Cellulitis of 10:30a Services Of Nick Horta M.D. right upper limb [facility] L[facility].113 Cellulitis of 8:29a ,pc N.P. 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 right upper limb Hospitalists N17.9 Acute kidney failure, unspecified E11.40 Type 2 diabetes mellitus with diabetic neuropathy, unsp I10 Essential (primary) hypertension Office Visit 01/05/2017 8:26a [facility] Nancie Amaral, L03.113 Cellulitis of Assoc,pc N.P. right upper limb Hospitalists N17.9 Acute kidney failure, unspecified E11.40 Type 2 diabetes mellitus with diabetic neuropathy, unsp I10 Essential (primary) hypertension Office Visit 01/04/2017 8:44a [facility] Nancie Amaral, L03.113 Cellulitis of Assoc,pc N.P. 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 Infectious Fred Pinto disorders Diseases L03.113 Cellulitis of right upper limb R79.82 Elevated C-reactive protein (CRP) E11.9 Type 2 diabetes mellitus without complications Office Visit 01/03/2017 [facility] Bayron Nance M79.89 Other specified 10:11a Services Of Nick Hopper MD soft tissue disorders Office Visit 01/03/2017 [facility] L03.113 Cellulitis of 8:43a asher Wells NP right upper limb Hospitalists N17.9 Acute kidney failure, unspecified E11.40 Type 2 diabetes mellitus with diabetic neuropathy, unsp I10 Essential (primary) hypertension Office Visit 01/02/2017 [facility] L03.113 Cellulitis of 8:43a Assoc,pc [place], CRUSHER FEEDER right upper limb Hospitalists N17.9 Acute kidney failure, unspecified E11.40 Type 2 diabetes mellitus with diabetic neuropathy, unsp I10 Essential (primary) hypertension Office Visit 01/02/2017 11:06a [facility] Arden Watson 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 Infectious Fred Pinto disorders Diseases L03.113 Cellulitis of right upper limb E11.9 Type 2 diabetes mellitus without complications M10.9 Gout, unspecified Office Visit 01/01/2017 [facility] L03.113 Cellulitis of 8:42a asher Wells, CR[employer]EDER right upper limb Hospitalists N17.9 Acute kidney failure, unspecified E11.40 Type 2 diabetes mellitus with diabetic neuropathy, unsp I10 Essential (primary) hypertension Office Visit 01/01/2017 10:58a [facility] Arden Watson 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 Infectious Fred Pinto disorders Diseases L03.113 Cellulitis of right upper limb E11.9 Type 2 diabetes mellitus without complications M10.9 Gout, unspecified Office Visit 12/31/2016 10:53a [facility] Arden Watson 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 Infectious Fred Pinto disorders Diseases M25.421 Effusion, right elbow L03.113 Cellulitis of right upper limb E11.9 Type 2 diabetes mellitus without complications Office Visit 12/31/2016 [facility] L03.113 Cellulitis of 8:42a asher Wells, CRUSHER [employer]EDER right upper limb Hospitalists N17.9 Acute kidney failure, unspecified E11.40 Type 2 diabetes mellitus with diabetic neuropathy, unsp I10 Essential (primary) hypertension Office Visit 12/30/2016 [facility] L03.113 Cellulitis of 8:41a asher Wells, CR[employer]ER right upper limb Hospitalists N17.9 Acute kidney failure, unspecified E11.40 Type 2 diabetes mellitus with diabetic neuropathy, unsp I10 Essential (primary) hypertension Office Visit 12/30/2016 10:46a [facility] Ari Watson M79.631 Pain in right Infectious Fred Pinto forearm Diseases M79.89 Other specified soft tissue disorders E11.9 Type 2 diabetes mellitus without complications Office Visit 12/29/2016 [facility] L03.113 Cellulitis of 8:40a asher [place], ALISON right upper limb Hospitalists N17.9 Acute kidney failure, unspecified E11.40 Type 2 diabetes mellitus with diabetic neuropathy, unsp I10 Essential (primary) hypertension Office Visit 02/21/2016 [facility] Matt R41.82 Altered mental 12:40p Assoc,asher Nielsen MD status, Hospitalists unspecified E11.8 Type 2 diabetes mellitus with unspecified complications I10 Essential (primary) hypertension M79.605 Pain in left leg Office Visit 02/20/2016 [facility] Matt R41.82 Altered mental 12:38p Assoc,asher Nielsen MD status, Hospitalists unspecified E11.8 Type 2 diabetes mellitus with unspecified complications I10 Essential (primary) hypertension M79.605 Pain in left leg Office Visit 02/19/2016 [facility] R41.82 Altered mental 4:15p [facility] Lees status, unspecified M79.605 Pain in left leg R20.0 Anesthesia of skin Office Visit 02/19/2016 [facility] Eyal M54.16 Radiculopathy, 12:37p Assoc,asher Dixon N.Hussain. lumbar region Hospitalists R41.82 Altered mental status, unspecified I10 Essential (primary) hypertension E11.8 Type 2 diabetes mellitus with unspecified complications Office Visit 10/12/2013 10:54a [facility] 786.51 Pain Precordial Assoc,asher Thurman M.D. Hospitalists 276.1 Hyposmolality & Or Hyponatremia 250.00 Diabetes Mellitus W/O Compl Type II Or Unspec Controlled Office Visit 10/11/2013 10:46a [facility] 786.51 Pain Precordial Assoc,asher Thurman M.D. Hospitalists 276.1 Hyposmolality & Or Hyponatremia 250.00 Diabetes Mellitus W/O Compl Type II Or Unspec Controlled Plan of Treatment Future Appointment(s):07/29/2018 10:50 am - Arden Pinto M.D. at [facility]/2019 - Arden Pinto M.D.M86.671 Other chronic osteomyelitis, right ankle and footComments:midline, cipro PO, daptomycin 500 mg IV Q48hrs for 14 days. Weekly cbc, cmp, crp, ckFollow up:end of next weekB95.62 Methicillin resis staph infct causing diseases classd keuqkjR70.69 Type 2 diabetes mellitus with other specified complication
[2018-07-29 05:00] VITALS: BP 145/77
== END 2018-07-29 05:20 | disposition home or self-care (01) ==
LOC: ED 03:16
DX: M54.5 Low back pain (principal); E11.22 Type 2 diabetes mellitus with diabetic chronic kidney disease; I12.9 Hypertensive chronic kidney disease with stage 1 through stage 4 chronic kidney disease, or unspecified chronic kidney disease; N18.3 Chronic kidney disease, stage 3 (moderate); Z79.84 Long term (current) use of oral hypoglycemic drugs; E78.00 Pure hypercholesterolemia, unspecified; Z88.8 Allergy status to other drugs, medicaments and biological substances
CPT/HCPCS: 96374; 96375; 99283; J2060; J2270; J2405

== ENCOUNTER 2018-09-29 07:44 | Emergency (ER) | payer OTHER ==
--- OUTSIDE RECORDS SUMMARY | 2018-09-29 08:24 | XMS REPORT | Continuity of Care Document ---
:1955 External Reference #:[id number] Author Name EmeterioHaylie juarez Care Team Providers Name Role Phone Daiana Bautista FNP Primary Care Physician Unavailable Payers Date Identification Numbers Payment Provider Subscriber Policy Number: [id number] Josef Carrillo III Group Name: [id number] [address] PayID: [id number] [place] [address] Expires: 2016 Policy Number: [id number] Va/ Non Va Care Louie Angelita Lorena BAILEY PayID: [id number] [address] [address] [place] [address] Advance Directives Description No Information Available Problems [...] heart failure Family History Date Family Member(s) Observation Comments General Diabetes General Heart Disease General Hypertension Social History Type Date Description Comments Sex Unknown Lives With Alone Occupation Unemployed ETOH Use Denies alcohol use Tobacco Use Start: Unknown Patient has never smoked Smoking Status Reviewed: 09/15/18 Patient has never smoked Exercise Type/Frequency Does not exercise Allergies, Adverse Reactions, Alerts Date Description Reaction Status Severity Comments 01/15/2017 Blood Pressure Med. Active pt didnt know what med. Medications Medication Date Status Form Strength Qnty SIG Indications Ordering Provider Metoprolol / Active Tablets 75mg 1 by [...] every 8 hours as needed for severe headahces , no not take on days when using [facility] Iron / Active Tablets 325(65Fe) 1 by Lily, 0000 mg mouth Daiana once LIDA Campoverde daily Linezolid 06/30/ Hx Tablets 600mg 42tab one by M86.671 Arden 2017 - s mouth D. 07/24/ twice a Millie, 2018 day M.D. Ciprofloxacin HCL 06/30/ Hx Tablets 250mg 45tab one by [id number] Arden 2018 - s mouth D. twice Macque, 2018 daily M.D. Doxycycline 06/15/ Hx Capsules 100mg one Unknown Hyclate 2018 - tablet 2018 daily for 21 days (per [facility] summary) Cipro / Hx Tablets 500mg 1 by Unknown 0000 - mouth 02/03/ twice a 2016 day Doxycycline / Hx Capsules 100mg 1 by Unknown Monohydrate 0000 - mouth 02/03/ twice a 2017 day Colchicine / Hx Capsules 0.6mg take one Unknown 0000 - by mouth 02/03/ every day 2016 Daptomycin / Hx Solution 500mg iv every Unknown 0000 - Rec 48 hours 08/11/ x 2 wks 2019 at [facility] Immunizations Description No Information Available Vital Signs Date Vital Result Comment 09/15/2018 10:07am Height 70 inches 5'10" Weight 224.25 lb Heart Rate 60 /min BP Systolic Sitting 140 mmHg BP Diastolic Sitting 74 mmHg Respiratory Rate 14 /min Body Temperature 96.9 F BMI (Body Mass Index) 32.2 kg/m2 08/11/2018 10:40am Height 70 inches 5'10" Weight 221.00 lb Heart Rate 72 /min BP Systolic Sitting 138 mmHg BP Diastolic Sitting 66 mmHg Respiratory Rate 14 /min Body Temperature 97.8 F BMI (Body Mass Index) 31.7 kg/m2 08/04/2018 10:31am Height 70 inches 5'10" Weight 221.00 lb Heart Rate 72 /min BP Systolic Sitting 138 mmHg BP Diastolic Sitting 64 mmHg Respiratory Rate 14 /min Body Temperature 99.2 F BMI (Body Mass Index) 31.7 kg/m2 07/29/2018 11:19am Height 70 inches 5'10" Weight 225.00 lb Heart Rate 72 /min BP Systolic Sitting 140 mmHg BP Diastolic Sitting 76 mmHg Respiratory Rate 14 /min Body Temperature 97.3 F BMI (Body Mass Index) 32.3 kg/m2 07/24/2018 10:59am Height 70 inches 5'10" Weight [...] Result H/L Range Note Comp Metabolic Panel 08/03/2018 [facility] Sodium 136 mmol/L N 135-145 [address] [place] [address] [phone] Potassium 4.3 mmol/L N 3.5-5.0 Chloride 102 mmol/L N 101-111 Co2 Carbon Dioxide 26 mmol/L N 22-32 Anion Gap 8 mmol/L N 2-11 Glucose 108 mg/dL High 70-100 Blood Urea Nitrogen 64 mg/dL High 6-24 Creatinine 3.33 mg/dL High 0.67-1.17 BUN/Creatinine Ratio 19.2 N 8-20 Calcium 8.9 mg/dL N 8.6-10.3 Total Protein 8.0 g/dL N 6.4-8.9 Albumin 3.8 g/dL N 3.2-5.2 Globulin 4.2 g/dL High 2-4 Albumin/Globulin Ratio 0.9 Low 1-3 Total Bilirubin 0.30 mg/dL N 0.2-1.0 Alkaline Phosphatase 37 U/L N 34-104 Alt 15 U/L N 7-52 Ast 13 U/L N 13-39 Egfr Non- 19.0 >60 Egfr 22.9 >60 1 Laboratory test 08/03/2018 [facility] Creatine 47 U/L N 10- [address] Kinase(CK) [place] [address] [phone] C Reactive Protein 29.80 mg/L High <8.01 CBC Auto Diff 08/03/2018 [facility] White Blood 9.4 10^3/uL N 3.5-10.[address] [place] [address] [phone] Red Blood Count 3.81 10^6/uL Low 4.00-5.40 Hemoglobin 9.8 g/dL Low 14.0-18.0 Hematocrit 29 % Low 42-52 Mean Corpuscular Volume 76 fL Low 80-94 Mean Corpuscular Hemoglobin 26 pg Low 27-31 Mean Corpuscular HGB Conc 34 g/dL N 31-36 Red Cell Distribution Width 17 % High 10.5-15 Platelet Count 379 10^3/uL N 150-450 Mean Platelet Volume 7.4 fL N 7.4-10.4 Abs Neutrophils 7.0 10^3/uL N 1.5-7.7 Abs Lymphocytes 1.3 10^3/uL N 1.0-4.8 Abs Monocytes 0.7 10^3/uL N 0-0.8 Abs Eosinophils 0.3 10^3/uL N 0-0.6 Abs Basophils 0.1 10^3/uL N 0-0.2 Abs Nucleated RBC 0 10^3/uL Granulocyte % 74.5 % Lymphocyte % 14.1 % Monocyte % 7.3 % Eosinophil % 2.8 % Basophil % 1.3 % Nucleated Red Blood Cells % 0 CBC Auto Diff 07/28/2018 [facility] White Blood 9.2 10^3/uL N 3.5-10.[address] [place] [address] [phone] Red Blood Count 3.74 10^6/uL Low 4.00-5.40 Hemoglobin 9.5 g/dL Low 14.0-18.0 Hematocrit 29 % Low 42-52 Mean Corpuscular Volume 77 fL Low 80-94 Mean Corpuscular Hemoglobin 26 pg Low 27-31 Mean Corpuscular HGB Conc 33 g/dL N 31-36 Red Cell Distribution Width 17 % High 10.5-15 Platelet Count 304 10^3/uL N 150-450 Mean Platelet Volume 7.8 fL N 7.4-10.4 Abs Neutrophils 6.6 10^3/uL N 1.5-7.7 Abs Lymphocytes 1.3 10^3/uL N 1.0-4.8 Abs Monocytes 1.0 10^3/uL High 0-0.8 Abs Eosinophils 0.2 10^3/uL N 0-0.6 Abs Basophils 0.1 10^3/uL N 0-0.2 Abs Nucleated RBC 0 10^3/uL Granulocyte % 72.3 % Lymphocyte % 13.9 % Monocyte % 10.5 % Eosinophil % 2.1 % Basophil % 1.2 % Nucleated Red Blood Cells % 0 Comp Metabolic Panel 07/28/2018 [facility] Sodium 135 mmol/L N 135-[address] [place] [id number] [phone] Potassium 3.9 mmol/L N 3.5-5.0 Chloride 102 mmol/L N 101-111 Co2 Carbon Dioxide 24 mmol/L N 22-32 Anion Gap 9 mmol/L N 2-11 Glucose 113 mg/dL High 70-100 Blood Urea Nitrogen 51 mg/dL High 6-24 Creatinine 3.07 mg/dL High 0.67-1.17 BUN/Creatinine Ratio 16.6 N 8-20 Calcium 8.5 mg/dL Low 8.6-10.3 Total Protein 7.3 g/dL N 6.4-8.9 Albumin 3.6 g/dL N 3.2-5.2 Globulin 3.7 g/dL N 2-4 Albumin/Globulin Ratio 1.0 N 1-3 Total Bilirubin 0.30 mg/dL N 0.2-1.0 Alkaline Phosphatase 40 U/L N 34-104 Alt 18 U/L N 7-52 Ast 13 U/L N 13-39 Egfr Non- 20.8 >60 Egfr 25.2 >60 2 Laboratory test 07/28/2018 [facility] C Reactive 33.22 mg/L High <8.[address] [place] [address] [phone] Creatine Kinase(CK) 42 U/L N 10-223 Iron & Iron Binding 07/28/2018 [facility] Iron 24 g/dL Low 50-[address] [place] [address] [phone] Unsaturated Iron Binding < 315 g/dL Total Iron Binding Capacity 330 g/dL N 250-450 Transferrin 236 mg/dL N 203-362 % Iron Saturation 7 % Low 15-55 Laboratory test 07/28/2018 [facility] Ferritin 42.8 ng/mL N 24 -336 [address] [place] [address] [phone] Comp Metabolic Panel 07/24/2018 [facility] Sodium 136 mmol/L N 135-145 [address] [place] [address] [phone] Potassium 4.8 mmol/L N 3.5-5.0 Chloride 101 [...] Egfr Non- 24.0 >60 Egfr 29.1 >60 3 CBC Auto Diff 07/24/2018 [facility] White Blood 10.2 10^3/uL N 3.5-10.[address] [place] [address] [phone] Red Blood Count 4.14 10^6/uL N 4.00-5.40 [...] Blood Cells % 0.1 Laboratory test 07/24/2018 [facility] C Reactive 17.97 mg/L High <8.[address] [place] [address] [phone] 1 Because ethnic data is not always [...] 15-29 5 Kidney failure <15 (or dialysis) 2 Because ethnic data is not always readily [...] 15-29 5 Kidney failure <15 (or dialysis) 3 Because ethnic data is not always readily [...] dialysis) Procedures Date Code Description Status 06/05/2018 14029 ECHO Transthorasic Realtime 2D W Doppler & Color Flow Hosp Completed 06/05/2018 82868 EKG, Interpretation Only Completed 06/05/2018 95734 Amputation Toe MP JT Completed 06/05/2018 40292 Amputation Toe MP JT Completed 08/24/2017 62552 ECHO Transthorasic Realtime 2D W Doppler & Color Flow Hosp Completed 12/29/2016 35121 EKG, Interpretation Only Completed 02/20/2016 25673 EEG Recording Awake & Asleep Completed 02/19/2016 59417 EEG Recording Awake & Drowsy Completed 10/12/2013 09717 Treadmill Interp/Report Only Completed 10/12/2013 14404 Stress Test Supervsn W/Out I/R Completed Encounters Type Date Location Provider Dx Diagnosis Office Visit 08/11/2018 [facility] Arden Watson I89.0 Lymphedema, not 9:50a Infectious Diseases Lashonda PintoD. elsewhere classified E11.69 Type 2 diabetes mellitus with other specified complication M86.671 Other chronic osteomyelitis, right ankle and foot Office Visit 08/04/2018 10:30a [facility] Arden Watson B95.62 Methicillin resis For Infectious Francisco Pinto. 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 osteomyelitis, Diseases right ankle and foot B95.62 Methicillin resis staph infct causing diseases classd elsr E11.69 Type 2 diabetes mellitus with other specified complication D50.9 Iron deficiency anemia, unspecified Office Visit 07/24/2018 [facility] Arden Watson M86.671 Other chronic 10:50a For Infectious Lashonda PintoD. osteomyelitis, Diseases right ankle and foot B95.62 Methicillin resis staph infct causing diseases classd elswhr E11.69 Type 2 diabetes mellitus with other specified complication Office Visit 06/30/2018 [facility] Arden Watson M86.671 Other chronic 9:30a For Infectious Lashonda PintoD. 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 ankle and foot Office Visit 06/15/2018 [facility] Arden Watson M86.671 Other chronic 12:11p For Infectious Macqueen, osteomyelitis, right Diseases MShayy. 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 Methicillin Hospitalists resistant Staphylococcus aureus N17.9 Acute kidney failure, unspecified N18.3 Chronic kidney disease, stage 3 (moderate) E11.22 Type 2 diabetes mellitus w diabetic chronic kidney disease Z89.421 Acquired absence of other right toe(s) M86.9 Osteomyelitis, unspecified E11.69 Type 2 diabetes mellitus with other specified complication Office Visit 06/13/2018 8:49a [facility] N17.9 Acute kidney Assoc,pc Vicente, DO failure, Hospitalists unspecified A41.02 Sepsis due to Methicillin resistant Staphylococcus aureus N18.3 Chronic kidney disease, stage 3 (moderate) E11.69 Type 2 diabetes mellitus with other specified complication E11.22 Type 2 diabetes mellitus w diabetic chronic kidney disease M86.9 Osteomyelitis, unspecified I50.30 Unspecified diastolic (congestive) heart failure Office Visit 06/11/2018 [facility] Arden Watson E11.69 Type 2 diabetes 12:05p For Ivan Pinto M.D. 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3 Chronic kidney disease, stage 3 (moderate) M86.9 Osteomyelitis, unspecified A41.02 Sepsis due to Methicillin resistant Staphylococcus aureus E11.69 Type 2 diabetes mellitus with other specified complication E11.22 Type 2 diabetes mellitus w diabetic chronic kidney disease I50.30 Unspecified diastolic (congestive) heart failure Office Visit 06/09/2018 [facility] [place] A41.02 Sepsis due to 8:48a Assoc,pc Mir, M.D. Methicillin Hospitalists resistant Staphylococcus aureus N17.9 Acute kidney failure, unspecified M86.171 Other acute osteomyelitis, right ankle and foot E11.69 Type 2 diabetes mellitus with other specified complication N04.9 Nephrotic syndrome with unspecified morphologic changes E11.22 Type 2 diabetes mellitus w diabetic chronic kidney disease N18.3 Chronic kidney disease, stage 3 (moderate) Office Visit 06/08/2018 [facility] A41.02 Sepsis due to 8:47a asher Wells M.D. Methicillin Hospitalists resistant Staphylococcus aureus N17.9 Acute kidney failure, unspecified M86.171 Other acute osteomyelitis, right ankle and foot E11.69 Type 2 diabetes mellitus with other specified complication N04.9 Nephrotic syndrome with unspecified morphologic changes E11.22 Type 2 diabetes mellitus w diabetic chronic kidney disease N18.3 Chronic kidney disease, stage 3 (moderate) Office Visit 06/08/2018 [facility] Arden Watson E11.69 Type 2 diabetes 10:49a For Infectious Fred Pinto mellitus with Diseases other specified complication M86.171 Other acute osteomyelitis, right ankle and foot N17.9 Acute kidney failure, unspecified N04.9 Nephrotic syndrome with unspecified morphologic changes R78.81 Bacteremia E11.21 Type 2 diabetes mellitus with diabetic nephropathy Office Visit 06/07/2018 [facility] A41.02 Sepsis due to 8:47a asher Wells M.D. Methicillin Hospitalists resistant Staphylococcus aureus N17.9 Acute kidney failure, unspecified N04.9 Nephrotic syndrome with unspecified morphologic changes M86.171 Other acute osteomyelitis, right ankle and foot E11.69 Type 2 diabetes mellitus with other specified complication E11.22 Type 2 diabetes mellitus w diabetic chronic kidney disease N18.3 Chronic kidney disease, stage 3 (moderate) Office Visit 06/06/2018 [facility] A41.02 Sepsis due to 8:47a asher [...] disease, stage 3 (moderate) Office Visit 06/05/2018 [facility] [place] A41.02 Sepsis due to 8:47a asher [...] stage 3 (moderate) Office Visit 06/04/2018 8:46a [facility] [place] N17.9 Acute kidney asher Wells M.D. failure, Hospitalists unspecified M86.171 Other acute osteomyelitis, right ankle and foot N18.3 Chronic kidney disease, stage 3 (moderate) E11.22 Type 2 diabetes mellitus w diabetic chronic kidney disease N04.9 Nephrotic syndrome with unspecified morphologic changes E11.69 Type 2 diabetes mellitus with other specified complication Office Visit 06/04/2018 10:45a [facility] Bh[facility] E11.621 Type 2 diabetes [facility] Whitaker mellitus with C.M.A. foot ulcer M86.171 Other acute osteomyelitis, right ankle and foot L97.518 Non-prs chronic ulcer oth prt right foot with oth severity Office Visit 11/07/2017 8:34a [facility] Emily Steel, R06.02 Shortness of asher Wells M.D. breath Hospitalists Office Visit 11/06/2017 8:33a [facility] Emily Steel R06.02 Shortness of asher Wells M.D. breath Hospitalists E11.21 Type 2 diabetes mellitus with diabetic nephropathy R05 Cough N18.4 Chronic kidney disease, stage 4 (severe) Office Visit 11/05/2017 8:33a [facility] [place] R06.02 Shortness of Assocasher PA breath Hospitalists E11.21 Type 2 diabetes mellitus with diabetic nephropathy R05 Cough N18.4 Chronic kidney disease, stage 4 (severe) Office Visit 2017 8:32a [facility] [place] R06.02 Shortness of Assoc,HOMAR Blanc breath Hospitalists E11.21 Type 2 diabetes mellitus with diabetic nephropathy R05 Cough N18.4 Chronic kidney disease, stage 4 (severe) Office Visit 11/03/2017 8:31a [facility] [place] R06.02 Shortness of Assoc,HOMAR Blanc breath Hospitalists E11.21 Type 2 diabetes mellitus with diabetic nephropathy R05 Cough N18.4 Chronic kidney disease, stage 4 (severe) Office Visit 11/02/2017 [facility] [place] J44.1 Chronic 8:29a ahser Wells NP obstructive Hospitalists pulmonary disease w (acute) exacerbation R05 Cough R06.02 Shortness of breath [facility] R60.1 Generalized edema 9:20a asher Wells M.D. Hospitalists E11.22 Type 2 diabetes mellitus w diabetic chronic kidney disease N18.3 Chronic kidney disease, stage 3 (moderate) I10 Essential (primary) hypertension Office Visit 08/27/2017 [facility] Emily Hohn, R60.1 Generalized edema 9:19a asher Wells M.D. Hospitalists E11.22 Type 2 diabetes mellitus w diabetic chronic kidney disease N18.3 Chronic kidney disease, stage 3 (moderate) I10 Essential (primary) hypertension Office Visit 08/26/2017 [facility] Emily Hohn, R60.1 Generalized edema 9:18a asher Wells M.D. Hospitalists E11.22 Type 2 diabetes mellitus w diabetic chronic kidney disease N18.3 Chronic kidney disease, stage 3 (moderate) I10 Essential (primary) hypertension Office Visit 08/25/2017 [facility] Emily Hohn, R60.1 Generalized edema 9:17a asher Wells M.D. Hospitalists E11.22 Type 2 diabetes mellitus w diabetic chronic kidney disease N18.3 Chronic kidney disease, stage 3 (moderate) I10 Essential (primary) hypertension Office Visit 08/24/2017 [facility] Emily Hohn, R60.1 Generalized edema 9:15a asher Wells M.D. Hospitalists E11.22 Type 2 diabetes mellitus w diabetic chronic kidney disease N18.3 Chronic kidney disease, stage 3 (moderate) I10 Essential (primary) hypertension [facility], R60.1 Generalized edema 9:14a asher Wells M.D. Hospitalists E11.22 Type 2 diabetes mellitus w diabetic chronic kidney disease N18.3 Chronic kidney disease, stage 3 (moderate) I10 Essential (primary) hypertension Office Visit 02/04/2017 8:30a [facility] Arden Watson L03.113 Cellulitis of For Infectious Fred Pinto right upper limb Diseases E11.40 Type 2 diabetes mellitus with diabetic neuropathy, unsp Office Visit 01/15/2017 [facility] Guillermina L03.113 Cellulitis of 10:30a Services Of Fred Horta right upper limb C.M.A. 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 right upper limb Hospitalists E11.40 Type 2 diabetes mellitus with diabetic neuropathy, unsp I10 Essential (primary) hypertension N17.9 Acute kidney failure, unspecified Office Visit 01/07/2017 [facility] Grace L03.113 Cellulitis of 10:07a Services Of NIRALI Samayoa right upper limb [facility] L[facility].113 Cellulitis of 8:29a Assmalathi,pc N.P. 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 right upper limb Hospitalists N17.9 Acute kidney failure, unspecified E11.40 Type 2 diabetes mellitus with diabetic neuropathy, unsp I10 Essential (primary) hypertension Office Visit 01/05/2017 [facility] L03.113 Cellulitis of Assoc,pc N.P. right upper limb Hospitalists N17.9 Acute kidney failure, unspecified E11.40 Type 2 diabetes mellitus with diabetic neuropathy, unsp I10 Essential (primary) hypertension Office Visit 01/04/2017 [facility] L03.113 Cellulitis of Assoc,pc N.P. right upper limb Hospitalists N17.9 Acute kidney failure, unspecified E11.40 Type 2 diabetes mellitus with diabetic neuropathy, unsp I10 Essential (primary) hypertension Office Visit 01/03/2017 2:06p [facility] Arden Watson 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 Infectious Fred Pinto disorders Diseases L03.113 Cellulitis of right upper limb R79.82 Elevated C-reactive protein (CRP) E11.9 Type 2 diabetes mellitus without complications Office Visit 01/03/2017 [facility] Bayron Nance M79.89 Other specified 10:11a Services Of Nick Hopper MD soft tissue disorders Office Visit 01/03/2017 [facility] L03.113 Cellulitis of 8:43a asher Wells NP right upper limb Hospitalists N17.9 Acute kidney failure, unspecified E11.40 Type 2 diabetes mellitus with diabetic neuropathy, unsp I10 Essential (primary) hypertension Office Visit 01/02/2017 11:06a [facility] Arden Watson 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 Infectious Fred Pinto disorders Diseases L03.113 Cellulitis of right upper limb E11.9 Type 2 diabetes mellitus without complications M10.9 Gout, unspecified Office Visit 01/02/2017 [facility] L03.113 Cellulitis of 8:43a asher Wells NP right upper limb Hospitalists N17.9 Acute kidney failure, unspecified E11.40 Type 2 diabetes mellitus with diabetic neuropathy, unsp I10 Essential (primary) hypertension Office Visit 01/01/2017 [facility] L03.113 Cellulitis of 8:42a asher Wells [employer] right upper limb Hospitalists N17.9 Acute kidney failure, unspecified E11.40 Type 2 diabetes mellitus with diabetic neuropathy, unsp I10 Essential (primary) hypertension Office Visit 01/01/2017 10:58a [facility] Arden Watson 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 Infectious Fred Pinto disorders Diseases L03.113 Cellulitis of right upper limb E11.9 Type 2 diabetes mellitus without complications M10.9 Gout, unspecified Office Visit 12/31/2016 [facility] L03.113 Cellulitis of 8:42a asher Wells NP right upper limb Hospitalists N17.9 Acute kidney failure, unspecified E11.40 Type 2 diabetes mellitus with diabetic neuropathy, unsp I10 Essential (primary) hypertension Office Visit 12/31/2016 10:53a [facility] Arden Watson 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 Infectious Fred Pinto disorders Diseases M25.421 Effusion, right elbow L03.113 Cellulitis of right upper limb E11.9 Type 2 diabetes mellitus without complications Office Visit 12/30/2016 [facility] L03.113 Cellulitis of 8:41a asher Wells NP right upper limb Hospitalists N17.9 Acute kidney failure, unspecified E11.40 Type 2 diabetes mellitus with diabetic neuropathy, unsp I10 Essential (primary) hypertension Office Visit 12/30/2016 10:46a [facility] Ari Watson M79.631 Pain in right Infectious Fred Pinto forearm Diseases M79.89 Other specified soft tissue disorders E11.9 Type 2 diabetes mellitus without complications Office Visit 12/29/2016 [facility] L03.113 Cellulitis of 8:40a asher Wells NP right upper limb Hospitalists N17.9 Acute kidney failure, unspecified E11.40 Type 2 diabetes mellitus with diabetic neuropathy, unsp I10 Essential (primary) hypertension Office Visit 02/21/2016 [facility] R41.82 Altered mental 12:40p asher Wells MD status, Hospitalists unspecified E11.8 Type 2 diabetes mellitus with unspecified complications I10 Essential (primary) hypertension M79.605 Pain in left [facility] 12:38p asher Wells MD status, Hospitalists unspecified E11.8 Type 2 diabetes mellitus with unspecified complications I10 Essential (primary) hypertension M79.605 Pain in left leg Office Visit 02/19/2016 [facility] R41.82 Altered mental 4:15p [facility] status, unspecified M79.605 Pain in left leg R20.0 Anesthesia of skin Office Visit 02/19/2016 [facility]al M54.16 Radiculopathy, 12:37p Assoc,asher Dixon N.P. lumbar region Hospitalists R41.82 Altered mental status, unspecified I10 Essential (primary) hypertension E11.8 Type 2 diabetes mellitus with unspecified complications Office Visit 10/12/2013 10:54a [facility] 786.51 Pain Precordial Assoc,asher Thurman M.D. Hospitalists 276.1 Hyposmolality & Or Hyponatremia 250.00 Diabetes Mellitus W/O Compl Type II Or Unspec Controlled Office Visit 10/11/2013 10:46a [facility] 786.51 Pain Precordial Assoc,asher Thurman M.D. Hospitalists 276.1 Hyposmolality & Or Hyponatremia 250.00 Diabetes Mellitus W/O Compl Type II Or Unspec Controlled Plan of Treatment 09/15/2018 - Arden Pinto M.D.E11.69 Type 2 diabetes mellitus with other specified [id number] Acquired absence of right great toeI89.0 Lymphedema, not elsewhere classifiedComments:continue to wrap, he could use compression stockings on both feet
--- NOTE | 2018-09-29 08:42 | ED ---
Complex/Multi-Sys Presentation - HPI Summary HPI Summary: Pt is a 62 y/o male who presents to the ED c/o flank pain and toe pain. Last night his RLE was numb, but this has now resolved. He also began to have flank pain, which is rated a 9/10 in severity and described as aching. The pain is located over the small of the back with the kidneys and is non-radiating. This morning at 1:00 he began to have throbbing right great toe pain. The toe pain is constant and is rated a 9/10 in severity. He denies any fever, CP, SOB, abdominal pain, dysuria, hematuria, or neck pain. He has a bandage on his right foot, put on by his mother last night. He is able to ambulate slowly with a shuffling gait. Pt has taken Tylenol for his sx without relief. Pt is accompanied by his daughter. He is on several medications but is unsure of the names, and he took his medications this morning. Pt was recently on antibiotics and is unsure of the name. PMHx DM, HTN, HLD, right great toe amputation, back pain. He denies any hx of kidney stones, but has stage 3 chronic kidney disease as per medical records. Pt has Lyme disease. Pt saw Dr. Pinto last week and has an appointment with him on 10/01/18. He is a wound clinic patient. He is difficult to understand and is unable to give full details of his history. Pt denies any hx of back surgeries. He denies smoking, alcohol use, or drug use. Pt is on disability and lives with his parents. FHx DM from his mother, HTN from his father, and [place] from his grandfather. Pt is allergic to Lisinopril and Niacin. - History Of Current Complaint Chief Complaint: EDBackInjuryPain Time Seen by Provider: 09/29/18 07:56 Hx Obtained From: Patient, Family/Summer Internship - Daughter Onset/Duration: Gradual Onset, Still Present Timing: Constant Severity Currently: Severe - 9/10 Character: Throbbing Aggravating Factor(s): Nothing Alleviating Factor(s): Nothing Associated Signs And Symptoms: Positive: Back Pain. Negative: SOB, Chest Pain, Abdominal Pain, Dysuria, Fever Related History: Similar Episode/Diagnosed As: - hx DM and right great toe amputation - Allergies/Home Medications Allergies/Adverse Reactions: Allergies Allergy/AdvReac Type Severity Reaction Status Date / Time lisinopril Allergy Difficulty Verified 08/01/18 12:07 Breathing niacin Allergy Rash Verified 08/01/18 12:07 PMH/Surg Hx/FS Hx/Imm Hx Endocrine/Hematology History: Reports: Hx Diabetes - TYPE 2 / ON ORAL MEDS, Hx Thyroid Disease Cardiovascular History: Reports: Hx Angina, Hx Hypercholesterolemia, Hx Hypertension Denies: Hx Coronary Artery Disease, Hx Myocardial Infarction, Hx Pacemaker/ ICD, Hx Valvular Heart Disease, Other Cardiovascular Problems/Disorders Respiratory History: Reports: Hx Chronic Obstructive Pulmonary Disease (COPD), Hx Pneumonia, Other Respiratory Problems/Disorders - uses albuterol inhaler at home Denies: Hx Asthma GI History: Denies: Hx Ulcer History: Reports: Other Problems/Disorders - Chronic kidney disease stage 3 Denies: Hx Kidney Stones Musculoskeletal History: Reports: Hx Back Problems - back pain, Hx Gout, Other Musculoskeletal History - HIP PAIN Denies: Hx Arthritis, Hx Osteoporosis, Hx Scoliosis Sensory History: Reports: Hx Contacts or Glasses Denies: Hx Hearing Aid Opthamlomology History: Reports: Hx Contacts or Glasses Neurological History: Reports: Hx Headaches Denies: Other Neuro Impairments/Disorders Psychiatric History: Reports: Hx Anxiety, Hx Depression, Hx Panic Disorder - Surgical History Surgery Procedure, Year, and Place: POLYPS REMOVED INTESTINE. APPENDECTOMY. KNEE SURGERY 1998 Hx Anesthesia Reactions: No Infectious Disease History: Yes - Lyme disease Infectious Disease History: Denies: Hx Clostridium Difficile, Hx Hepatitis, Hx Human Immunodeficiency Virus (HIV), Hx of Known/Suspected MRSA, Hx Shingles, Hx Tuberculosis, Hx Known/ Suspected VRE, Hx Known/Suspected VRSA, History Other Infectious Disease, Traveled Outside the [place] in Last 30 Days - Family History Known Family History: Positive: Cardiac Disease - [place] - grandfather, Hypertension - father, Diabetes - mother, Other - father - asthma, emphysema - Social History Occupation: Disabled Lives: With Family - parents Alcohol Use: None Alcohol Amount: quit Hx Substance Use: No Substance Use Type: Reports: None Hx Tobacco Use: No Smoking Status (MU): Never Smoked Tobacco Review of Systems Negative: Fever Negative: Chest Pain Negative: Shortness Of Breath Negative: Abdominal Pain Negative: dysuria, hematuria Positive: Myalgia - low back, bilateral, Other - right great toe pain, NEGATIVE : neck pain Positive: Other - wound on right foot Positive: Numbness - RLE, resolved All Other Systems Reviewed And Are Negative: Yes Physical Exam - Summary Physical Exam Summary: Appearance: Ill-appearing, moderate pain distress, well-nourished Skin: Warm, dry, bandage on right foot with serous drainage, opening of crease on ventral surface of right second toe, no red streaks, band-aid on left third, fourth, and fifth toes with minimal serous drainage, macerated tissue between the left fourth and fifth toes, redness on left anterior tibia measuring 11 cm in length without streaking Head: Normal Head/Face inspection, atraumatic Eyes: Conjunctiva clear ENT: Normal inspection Neck: Supple, no nodes, no JVD Respiratory: Lungs clear, normal breath sounds, no respiratory distress Cardio: RRR, No murmur, pulses normal, brisk capillary refill Abdomen: Soft, nontender, left-sided surgical scar Bowel sounds: Present Musculoskeletal: Strength Intact/ROM intact, no calf tenderness, 2+ pitting edema of BLE, metatarsal amputation of right great toe, right great toe stub and second toe red and swollen Back: No spinal or thoracic tenderness. No lumbar spinal tenderness. Minor spasm on left paraspinal muscles. Psychological: Normal Neuro: Alert, muscle tone normal, no focal deficit Triage Information Reviewed: Yes Vital Signs On Initial Exam: Initial Vitals Temp Pulse Resp BP Pulse Ox 97.9 F 57 18 147/72 98 09/29/18 07:51 09/29/18 07:51 09/29/18 07:51 09/29/18 07:51 09/29/18 07:51 Vital Signs Reviewed: Yes Diagnostics - Vital Signs Vital Signs Temp Pulse Resp BP Pulse Ox 09/29/18 07:51 97.9 F 57 18 147/72 98 - Laboratory Result Diagrams: 09/29/18 09:25 09/29/18 09:25 Lab Statement: Any lab studies that have been ordered have been reviewed, and results considered in the medical decision making process. - CT CT A/P CT Interpretation Completed By: Radiologist Summary of CT Findings: Mild diverticulosis of the colon without findings of acute diverticulitis. Post. appendectomy. Negative for urolithiasis or obstructive uropathy. Scoliosis and degenerative spondylosis and facet joint osteoarthritis. ED physician reviewed radiology report. Re-Evaluation - Re-Evaluation First Eval Re-Evaluation Time: 11:03 Change: Improved Comment: Discussed discharge plans. Relief of pain, and no new complaints. Nurse bandaged both feet prior to discharge. Complex Multi-Symp Course/Dx Course Of Treatment: Pt is a 62 y/o male who presents to the ED c/o RLE numbness , low back pain, and throbbing right great toe pain. He denies any fever, CP, SOB, abdominal pain, dysuria, hematuria, or neck pain. PMHx DM, HTN, HLD, right great toe amputation, back pain. Pt medications reviewed this visit. Nurses notes reviewed. Allergies noted. A physical exam revealed bandage on right foot with serous drainage, opening of crease on ventral surface of right second toe, no red streaks, band-aid on left third, fourth, and fifth toes with minimal serous drainage, macerated tissue between the left fourth and fifth toes, redness on left anterior tibia measuring 11 cm in length without streaking, left -sided abdominal surgical scar, 2+ pitting edema of BLE, metatarsal amputation of right great toe, right great toe stub and second toe red and swollen, No spinal or thoracic tenderness, No lumbar spinal tenderness, Minor spasm on left paraspinal muscles. BG of 93. A CT A/P revealed Mild diverticulosis of the colon without findings of acute diverticulitis. Post appendectomy. Negative for urolithiasis or obstructive uropathy. Scoliosis and degenerative spondylosis and facet joint osteoarthritis. Final dx are acute low back pain, CKD stage 3 due to type 2 diabetes mellitus, and anemia. He will be discharged home and is agreeable with this plan. - Diagnoses Provider Diagnoses: Acute low back pain, CKD stage 3 due to type 2 diabetes mellitus, Anemia Discharge - Sign-Out/Discharge Documenting (check all that apply): Patient Departure - Discharge Patient Received Moderate/Deep Sedation with Procedure: No - Discharge Plan Condition: Improved Disposition: HOME Prescriptions: oxyCODONE/Acetamin 5/325 MG* [Percocet 5/325 TAB*] 1 tab PO Q12H PRN #6 tab MDD 2 PRN Reason: Pain Patient Education Materials: Acute Low Back Pain (ED) Referrals: Daiana Bautista [Primary Care Provider] - 2 Days Additional Instructions: We did not find a serious cause of your back pain today. You were given morphine for the pain. Dr. Carrillo prescribed more percocet for you, which based on your kidney function, you may take twice a day. Return to the ER if any new or worsening symptoms. Keep your appointment with Dr. Pinto scheduled for 10/01/18. - Attestation Statements Document Initiated by Scribe: Yes Documenting Scribe: Zandra Rayo Provider For Whom Scribe is Documenting (Include Credential): Courtney Carrillo MD Scribe Attestation: Zandra Reyes, scribed for Courtney Carrillo MD on 09/29/18 at 1107.
[2018-09-29] MEDS ORDERED: Morphine INJ* 10 MG/ML 1 ML CARPUJECT IV ONE (09:01)
[2018-09-29] MEDS ORDERED: NS 0.9% 1000 ML** 1,000 ML IV ONE (09:01)
[2018-09-29] MEDS ORDERED: Ondansetron INJ* 2 MG/ML VIAL IV ONE (09:01)
[2018-09-29 09:36] LABS: ABS Basophils 0.1 10^3/ul (0-0.2); ABS Eosinophils 0.2 10^3/ul (0-0.6); ABS Lymphocytes 1.2 10^3/ul (1.0-4.8); ABS Monocytes 0.8 10^3/ul (0-0.8); ABS Neutrophils 6.7 10^3/ul (1.5-7.7); ABS Nucleated RBC 0 10^3/ul; Eosinophil % 1.9 %; Hematocrit 28 % (36-46); Hemoglobin 9.5 g/dL (14.0-18.0); Lymphocyte % 13.5 %; Mean Corpuscular HGB Conc 34 g/dL (31-36); Mean Corpuscular Hemoglobin 26 pg (27-31); Mean Corpuscular Volume 77 fL (80-94); Nucleated Red Blood Cells % 0; Platelet Count 361 10^3/uL (150-450); Red Blood Count 3.64 10^6 /uL (4.18-5.48); Red Cell Distribution Width 15 % (10.5-15)
[2018-09-29 09:58] LABS: Urine Appearance Cloudy; Urine Bacteria Absent (Absent); Urine Bilirubin Negative (Negative); Urine Blood 1+ (Negative); Urine Color Yellow; Urine Glucose Negative (Negative); Urine Ketones Negative (Negative); Urine Nitrite Negative (Negative); Urine Protein 2+(100 mg/dL) (Negative); Urine Red Blood Cell Trace(0-2/hpf) (Absent); Urine Specific Gravity 1.012 (1.010-1.030); Urine Urobilinogen Negative (Negative); Urine White Blood Cell Trace(0-5/hpf) (Absent)
[2018-09-29 10:00] LABS: Albumin 3.6 g/dL (3.2-5.2); Albumin/Globulin Ratio 0.9 (1-3); BUN/Creatinine Ratio 22.4 (8-20); C Reactive Protein 23.47 mg/L (<8.01); Calcium 8.5 mg/dL (8.6-10.3); EGFR African American 27.9 (>60); EGFR Non-African American 23.1 (>60); Globulin 3.8 g/dL (2-4); Potassium 4.2 mmol/L (3.5-5.0); Total Bilirubin 0.3 mg/dL (0.2-1.0); Total Protein 7.4 g/dL (6.4-8.9)
[2018-09-29] MEDS ORDERED: Morphine 10 MG/ML VIAL (1 ml) IV ONE (10:00)
[2018-09-29 11:06] VITALS: BP 150/81
== END 2018-09-29 11:22 | disposition home or self-care (01) ==
LOC: ED 07:44
DX: E11.22 Type 2 diabetes mellitus with diabetic chronic kidney disease (principal); N18.3 Chronic kidney disease, stage 3 (moderate); D64.9 Anemia, unspecified; R10.84 Generalized abdominal pain; M79.674 Pain in right toe(s); M54.9 Dorsalgia, unspecified; I10 Essential (primary) hypertension; E78.5 Hyperlipidemia, unspecified; J44.9 Chronic obstructive pulmonary disease, unspecified; M54.5 Low back pain; Z89.429 Acquired absence of other toe(s), unspecified side
CPT/HCPCS: 36415; 74176; 80053; 81003; 81015; 83605; 85025; 86140; 87086; 96374; 96375; 96376; 99282; J2270; J2405

== ENCOUNTER 2018-10-07 22:11 | Emergency (ER) | payer OTHER ==
[2018-10-08] MEDS ORDERED: Morphine 4 MG/ML VIAL (1 ml) 4 MG/ML VIAL IM ONE (00:25)
[2018-10-08 00:51] LABS: ABS Basophils 0.1 10^3/ul (0-0.2); ABS Eosinophils 0.3 10^3/ul (0-0.6); ABS Lymphocytes 1.4 10^3/ul (1.0-4.8); ABS Monocytes 1.2 10^3/ul (0-0.8); ABS Neutrophils 7.7 10^3/ul (1.5-7.7); ABS Nucleated RBC 0 10^3/ul; Eosinophil % 2.8 %; Hematocrit 28 % (36-46); Hemoglobin 9.2 g/dL (14.0-18.0); Lymphocyte % 13.3 %; Mean Corpuscular HGB Conc 34 g/dL (31-36); Mean Corpuscular Hemoglobin 26 pg (27-31); Mean Corpuscular Volume 77 fL (80-94); Mean Platelet Volume 7.6 fL (7.4-10.4); Nucleated Red Blood Cells % 0; Platelet Count 326 10^3/uL (150-450); Red Blood Count 3.55 10^6 /uL (4.18-5.48); Red Cell Distribution Width 15 % (10.5-15); White Blood Count 10.8 10^3/uL (3.5-10.8)
[2018-10-08 00:56] LABS: Albumin 3.6 g/dL (3.2-5.2); Albumin/Globulin Ratio 0.9 (1-3); C Reactive Protein 77.56 mg/L (<8.01); Calcium 8.5 mg/dL (8.6-10.3); EGFR African American 26.4 (>60); EGFR Non-African American 21.8 (>60); Globulin 4.1 g/dL (2-4); Potassium 4.5 mmol/L (3.5-5.0); Total Bilirubin 0.3 mg/dL (0.2-1.0); Total Protein 7.7 g/dL (6.4-8.9)
--- NOTE | 2018-10-08 01:13 | ED ---
Lower Extremity - HPI Summary HPI Summary: 62-year-old male presents with right foot pain today. He states he has a history of an infected toe that requiring amputation. He currently on antibiotic but unsure which and is followed up dr wu. He denies any fevers. He states his pain medicine last night. He denies any injury. He admits occasional numbness but none currently. He states it is a very sharp pain. He states he tried some ibuprofen with no relief. He sees the wound clinic tomorrow. He denies any drainage. - History of Current Complaint Chief Complaint: EDExtremityLower Stated Complaint: IM HAVING A LOT OF PAIN IN MY RIGHT FOOT PER PT Time Seen by Provider: 10/08/18 00:17 Pain Intensity: 10 - Allergies/Home Medications Allergies/Adverse Reactions: Allergies Allergy/AdvReac Type Severity Reaction Status Date / Time lisinopril Allergy Difficulty Verified 10/07/18 22:17 Breathing niacin Allergy Rash Verified 10/07/18 22:17 PMH/Surg Hx/FS Hx/Imm Hx Endocrine/Hematology History: Reports: Hx Diabetes - TYPE 2 / ON ORAL MEDS, Hx Thyroid Disease Cardiovascular History: Reports: Hx Angina, Hx Hypercholesterolemia, Hx Hypertension Denies: Hx Coronary Artery Disease, Hx Myocardial Infarction, Hx Pacemaker/ ICD, Hx Valvular Heart Disease, Other Cardiovascular Problems/Disorders Respiratory History: Reports: Hx Chronic Obstructive Pulmonary Disease (COPD), Hx Pneumonia, Other Respiratory Problems/Disorders - uses albuterol inhaler at home Denies: Hx Asthma GI History: Denies: Hx Ulcer History: Reports: Other Problems/Disorders - Chronic kidney disease stage 3 Denies: Hx Kidney Stones Musculoskeletal History: Reports: Hx Back Problems - back pain, Hx Gout, Other Musculoskeletal History - HIP PAIN Denies: Hx Arthritis, Hx Osteoporosis, Hx Scoliosis Sensory History: Reports: Hx Contacts or Glasses Denies: Hx Hearing Aid Opthamlomology History: Reports: Hx Contacts or Glasses Neurological History: Reports: Hx Headaches Denies: Other Neuro Impairments/Disorders Psychiatric History: Reports: Hx Anxiety, Hx Depression, Hx Panic Disorder - Surgical History Surgery Procedure, Year, and Place: POLYPS REMOVED INTESTINE. APPENDECTOMY. KNEE SURGERY 1998 Hx Anesthesia Reactions: No Infectious Disease History: Yes Infectious Disease History: Denies: Hx Clostridium Difficile, Hx Hepatitis, Hx Human Immunodeficiency Virus (HIV), Hx of Known/Suspected MRSA, Hx Shingles, Hx Tuberculosis, Hx Known/ Suspected VRE, Hx Known/Suspected VRSA, History Other Infectious Disease, Traveled Outside the [place] in Last 30 Days - Family History Known Family History: Positive: Cardiac Disease - [place] - grandfather, Hypertension - father, Diabetes - mother, Other - father - asthma, emphysema - Social History Alcohol Use: None Alcohol Amount: quit Hx Substance Use: No Substance Use Type: Reports: None Hx Tobacco Use: No Smoking Status (MU): Never Smoked Tobacco Review of Systems Negative: Fever Negative: Chest Pain Negative: Shortness Of Breath Positive: Myalgia - right foot pain All Other Systems Reviewed And Are Negative: Yes Physical Exam Triage Information Reviewed: Yes Vital Signs On Initial Exam: Initial Vitals Temp Pulse Resp BP Pulse Ox 97.6 F 68 16 155/67 100 10/07/18 22:14 10/07/18 22:14 10/07/18 22:14 10/07/18 22:14 10/07/18 22:14 Vital Signs Reviewed: Yes Appearance: Positive: Well-Appearing Skin: Positive: Warm, Dry, Other - no erythema noted to right foot, healing ampuation area Head/Face: Positive: Normal Head/Face Inspection Eyes: Positive: Normal, Conjunctiva Clear ENT: Positive: Pharynx normal Respiratory/Lung Sounds: Positive: Clear to Auscultation, Breath Sounds Present Cardiovascular: Positive: Normal, RRR Musculoskeletal: Positive: Limited @ - right foot due to pain, Other - tenderness over lateral aspect of right foot, no erythema, diffuse swelling noted of leg, sensation grossly intact, good pulses Neurological: Positive: Normal Psychiatric: Positive: Normal Diagnostics - Vital Signs Vital Signs Temp Pulse Resp BP Pulse Ox 10/08/18 01:10 77 16 168/97 98 10/07/18 22:14 97.6 F 68 16 155/67 100 - Laboratory Lab Results: Lab Results 10/08/18 10/08/18 Range/Units 00:32 00:32 WBC 10.8 (3.5-10.8) 10^3/uL RBC 3.55 L (4.18-5.48) 10^6 /uL Hgb 9.2 L (14.0-18.0) g/dL Hct 28 L (36-46) % MCV 77 L (80-94) fL MCH 26 L (27-31) pg MCHC 34 (31-36) g/dL RDW 15 (10.5-15) % Plt Count 326 (150-450) 10^3/uL MPV 7.6 (7.4-10.4) fL Neut % (Auto) 71.9 % Lymph % (Auto) 13.3 % [place] % (Auto) 11.0 % Eos % (Auto) 2.8 % Baso % (Auto) 1.0 % Absolute Neuts (auto) 7.7 (1.5-7.7) 10^3/ul Absolute Lymphs (auto) 1.4 (1.0-4.8) 10^3/ul Absolute Monos (auto) 1.2 H (0-0.8) 10^3/ul Absolute Eos (auto) 0.3 (0-0.6) 10^3/ul Absolute Basos (auto) 0.1 (0-0.2) 10^3/ul Absolute Nucleated RBC 0 10^3/ul Nucleated RBC % 0 Sodium 137 (135-145) mmol/L Potassium 4.5 (3.5-5.0) mmol/L Chloride 103 (101-111) mmol/L Carbon Dioxide 22 (22-32) mmol/L Anion Gap 12 H (2-11) mmol/L BUN 56 H (6-24) mg/dL Creatinine 2.95 H (0.67-1.17) mg/dL Est GFR ( Amer) 26.4 (>60) Est GFR (Non-Af Amer) 21.8 (>60) BUN/Creatinine Ratio 19.0 (8-20) Glucose 111 H (70-100) mg/dL Calcium 8.5 L (8.6-10.3) mg/dL Total Bilirubin 0.30 (0.2-1.0) mg/dL AST 12 L (13-39) U/L ALT 15 (7-52) U/L Alkaline Phosphatase 42 (34-104) U/L C-Reactive Protein 77.56 H (<8.01) mg/L Total Protein 7.7 (6.4-8.9) g/dL Albumin 3.6 (3.2-5.2) g/dL Globulin 4.1 H (2-4) g/dL Albumin/Globulin Ratio 0.9 L (1-3) Result Diagrams: 10/08/18 00:32 10/08/18 00:32 Lab Statement: Any lab studies that have been ordered have been reviewed, and results considered in the medical decision making process. - Radiology foot Radiology Interpretation Completed By: ED Physician Summary of Radiographic Findings: post amputation, no deformity seen on lateral aspect of foot Re-Evaluation - Re-Evaluation First Eval Re-Evaluation Time: 01:30 Change: Improved Comment: some improvement in pain Lower Extremity Course/Dx - Course Course Of Treatment: 62-year-old male presents with right foot pain today. He states he has a history of an infected toe that requiring amputation. He currently on antibiotic but unsure which and is followed up dr wu. He denies any fevers. He states his pain medicine last night. He denies any injury. He admits occasional numbness but none currently. He states it is a very sharp pain. He states he tried some ibuprofen with no relief. He sees the wound clinic tomorrow. He denies any drainage. On exam no erythema noted. Tenderness over lateral aspect of right foot. nontender over amputation. X- ray appears normal. wbc normal. Do not suspect infection at this time. gave a short course of pain medication to go home with. Told to follow up with wound clinic as scheduled today. Patient understands agrees with plan. - Diagnoses Differential Diagnosis/HQI/PQRI: Positive: Fracture (Closed), Sprain, Strain Provider Diagnoses: Right foot pain Discharge - Sign-Out/Discharge Documenting (check all that apply): Patient Departure Patient Received Moderate/Deep Sedation with Procedure: No - Discharge Plan Condition: Good Disposition: HOME Patient Education Materials: R.I.C.E. Treatment (ED) Referrals: Daiana Bautista [Primary Care Provider] - Additional Instructions: keep follow up with wound clinic take tyenlol as needed for pain every 6 hours, use percocet every 6 hours as needed for pain elevate extremity ice follow up with primary Return to ED if develop any fevers or any new or worsening symptoms - Billing Disposition and Condition Condition: GOOD Disposition: Home
[2018-10-08] MEDS ORDERED: Gabapentin CAP(*) 300 MG PO ONE (01:17)
[2018-10-08 02:07] VITALS: BP 178/83
--- NOTE | 2018-10-08 07:12 | PN ---
Progress Note - Progress Note Date of Service: 10/07/18 Note: Pt. seen in ED last night for right lateral foot pain without report of injury per ED provider's note. Final foot xray read per radiology: Foot xray per radiology: IMPRESSION: 1. FINDINGS MOST CONSISTENT WITH A NONDISPLACED SUBACUTE FRACTURE OF THE SECOND PROXIMAL PHALANX. 2. SOFT TISSUE SWELLING, NO SPECIFIC EVIDENCE FOR OSTEOMYELITIS. IF THERE IS A HIGH CLINICAL INDEX OF SUSPICION FOR OSTEOMYELITIS CONSIDER AN MRI STUDY WITHOUT CONTRAST OR A THREE-PHASE BONE SCAN. Per ED note pt. had lateral foot pain on exam. Pt. reportedly currently on antibx and has an appointment with the wound clinic 10/08/18. No change in treatment needed at this time.
== END 2018-10-08 02:06 | disposition home or self-care (01) ==
LOC: ED 22:11
DX: M79.671 Pain in right foot (principal); Z89.429 Acquired absence of other toe(s), unspecified side; E11.22 Type 2 diabetes mellitus with diabetic chronic kidney disease; I12.9 Hypertensive chronic kidney disease with stage 1 through stage 4 chronic kidney disease, or unspecified chronic kidney disease; N18.3 Chronic kidney disease, stage 3 (moderate); Z79.84 Long term (current) use of oral hypoglycemic drugs; J44.9 Chronic obstructive pulmonary disease, unspecified; Z88.8 Allergy status to other drugs, medicaments and biological substances
CPT/HCPCS: 36415; 80053; 85025; 86140; 96372; 99282; A9270-GY; J2270

== ENCOUNTER 2018-11-13 17:17 | Emergency (ER) | payer MEDICARE, MEDICAID ==
--- OUTSIDE RECORDS SUMMARY | 2018-11-13 17:39 | XMS REPORT | Continuity of Care Document ---
:1955 External Reference #:[id number] Author Name EmeterioHaylie juarez Care Team Providers Name Role Phone Daiana Bautista, LIDA Primary Care Physician Unavailable Payers Date Identification Numbers Payment Provider Subscriber Policy Number: [id number] Josef Carrillo III Group Name: [id number] [address] PayID: [id number] [place] [address] Expires: 2016 Policy Number: [id number] Va/ Non Va Care Louie Angelita Lorena BAILEY PayID: [id number] [address] [address] [place] [address] Advance Directives Description No Information Available Problems Active Problems Provider Date Sepsis due to methicillin resistant Cortney Hester M.D. Onset: 06/09/2018 Staphylococcus aureus Acute osteomyelitis of ankle and/or foot Cortney Hester M.D. Onset: 2017 Type 2 diabetes mellitus Cortney Hester M.D. Onset: 06/09/2018 Nephrotic syndrome Cortney Hester M.D. Onset: 06/09/2018 Chronic kidney disease stage 3 Cortney Hester M.D. Onset: 06/09/2018 Acute renal failure syndrome Cortney Hester M.D. Onset: 06/09/2018 Acquired absence of other right toe(s) Cortney Hester M.D. Onset: 06/09/2018 Osteomyelitis, unspecified Simran Zhang DO Onset: 06/10/2018 Unspecified diastolic (congestive) heart Simran Zhang DO Onset: 06/11/2018 failure Family History Date Family Member(s) Observation Comments General Diabetes General Heart Disease General Hypertension Social History Type Date Description Comments Sex Unknown Lives With Alone Occupation Unemployed ETOH Use Denies alcohol use Tobacco Use Start: Unknown Patient has never smoked Smoking Status Reviewed: 11/02/18 Patient has never smoked Exercise Type/Frequency Does not exercise Allergies, Adverse Reactions, Alerts Active Allergies Reaction Severity Comments Date Blood Pressure Med. pt didnt know what med. 01/15/2017 Medications Active Medications SIG Qnty Indications Ordering Date Provider Tramadol HCL one by mouth 10tabs M79.671 Arden Watson 10/08/2018 50mg Tablets twice daily as Fred Pinto needed for pain Terbinafine HCL apply to leg 30gm B35.4 Aredn Watson 09/23/2018 1% Cream rash twice Fred Pinto daily [facility] Iron 1 by mouth once Daiana Bautista 325(65Fe) mg Tablets daily LIDA Campoverde Butalbital-Acetaminophen 1 tab by mouth Unknown every 8 hours 50-325mg Tablets as needed for severe headahces, no not take on days when using mapap Albuterol Sulfate Unknown Zaroxolyn 1 tab by mouth Unknown 5mg Tablets daily 30 min before lasix Furosemide 1 by mouth Unknown 40mg Tablets every day Calcitriol 1 by mouth Unknown 0.25mcg Capsules every day Metoprolol Succinate ER 1 by mouth Unknown 100mg every day Tablets ER 24HR Levothyroxine Sodium 1 by mouth Unknown 25mcg every day Tablets Imdur Unknown Vitamin D Unknown Metformin HCL 1 by mouth Unknown 1000mg Tablets twice a day Aspirin 1 by mouth Unknown Tablets every day Atorvastatin Calcium 1 by mouth Unknown 80mg every day Tablets Cyclobenzaprine HCL one by mouth Unknown 10mg three times a Tablets day as needed spasm Amlodipine Besylate 1 by mouth Unknown 10mg every day Tablets Metoprolol Tartrate 1 by mouth Unknown 75mg twice a day Tablets History Medications Doxycycline Hyclate 1 by mouth twice 30tabs M79.671 Arden Watson 10/08/2018 - a day Fred Pinto 11/01/2018 100mg Tablets Cephalexin 1 by mouth three 42tabs L97.529 Arden Watson 09/23/2018 - 500mg times a day Fred Pinto 11/01/2018 Tablets Linezolid one by mouth 42tabs M86.671 Arden Watson 06/30/2018 - 600mg Tablets twice a day Fred Pinto 07/24/2018 Ciprofloxacin HCL one by mouth 45tabs M86.671 Arden Watson 06/30/2018 - 250mg twice daily Fred Pinto 09/14/2018 Tablets Doxycycline Hyclate one tablet twice Unknown 06/15/2018 - daily for 21 07/27/2018 100mg Capsules days (per [facility] DC summary) Cipro 1 by mouth twice Unknown - 500mg Tablets a day 02/03/2017 Doxycycline 1 by mouth twice Unknown - Monohydrate a day 02/03/2017 100mg Capsules Colchicine take one by Unknown - 0.6mg mouth every day 02/03/2017 Capsules Daptomycin iv every 48 Unknown - 500mg hours x 2 wks at 08/11/2018 [facility] Immunizations Description No Information Available Vital Signs Date Vital Result Comment 11/02/2018 3:11pm Height 70 inches 5'10" Weight 227.00 lb Heart Rate 60 /min BP Systolic Sitting 138 mmHg BP Diastolic Sitting 88 mmHg Respiratory Rate 14 /min Body Temperature 97.9 F BMI (Body Mass Index) 32.6 kg/m2 10/08/2018 3:46pm Height 70 inches 5'10" Weight 225.00 lb Heart Rate 70 /min BP Systolic Sitting 124 mmHg BP Diastolic Sitting 80 mmHg Respiratory Rate 16 /min Body Temperature 98.0 F Pain Level 3 BMI (Body Mass Index) 32.3 kg/m2 10/01/2018 1:16pm Height 70 inches 5'10" Weight 225.00 lb Heart Rate 64 /min BP Systolic Sitting 124 mmHg BP Diastolic Sitting 70 mmHg Respiratory Rate 14 /min Body Temperature 97.6 F BMI (Body Mass Index) 32.3 kg/m2 09/23/2018 9:01am Height 70 inches 5'10" Weight 227.00 lb Heart Rate 72 /min BP Systolic Sitting 72 mmHg BP Diastolic Sitting 78 mmHg Respiratory Rate 16 /min Body Temperature 97.0 F BMI (Body Mass Index) 32.6 kg/m2 09/15/2018 10:07am Height 70 inches 5'10" Weight [...] H/L Range Note Comp Metabolic Panel 08/03/2018 [facility] Sodium 136 mmol/L N 135-[address] [place] [address] [phone] Potassium 4.3 mmol/L N 3.5-5.0 Chloride 102 [...] Egfr 22.9 >60 1 Laboratory test 08/03/2018 [facility] Creatine 47 U/L N 10- [address] Kinase(CK) [place] [address] [phone] C Reactive Protein 29.80 mg/L High <8.01 CBC Auto Diff 08/03/2018 [facility] White Blood 9.4 10^3/uL N 3.5-10.[address] [place] [address] [phone] Red Blood Count 3.81 10^6/uL Low 4.00-5.40 [...] Cells % 0 CBC Auto Diff 07/28/2018 [facility] White Blood 9.2 10^3/uL N 3.5-10.[address] [place] [address] [phone] Red Blood Count 3.74 10^6/uL Low 4.00-5.40 [...] Cells % 0 Comp Metabolic Panel 07/28/2018 [facility] Sodium 135 mmol/L N 135-145 [address] [place] [address] [phone] Potassium 3.9 mmol/L N 3.5-5.0 Chloride 102 [...] Egfr 25.2 >60 2 Laboratory test 07/28/2018 [facility] C Reactive 33.22 mg/L High <8.[address] [place] [address] [phone] Creatine Kinase(CK) 42 U/L N 10-223 Iron & Iron Binding 07/28/2018 [facility] Iron 24 g/dL Low 50-212 [address]acity [address] [place] [address] [phone] Unsaturated Iron Binding < 315 g/dL Total Iron Binding Capacity 330 g/dL N 250-450 Transferrin 236 mg/dL N 203-362 % Iron Saturation 7 % Low 15-55 Laboratory test 07/28/2018 [facility] Ferritin 42.8 ng/mL N 24 -[address] [place] [address] [phone] Comp Metabolic Panel 07/24/2018 [facility] Sodium 136 mmol/L N 135-[address] [place] [address] [phone] Potassium 4.8 mmol/L N 3.5-5.0 Chloride 101 [...] 29.1 >60 3 CBC Auto Diff 07/24/2018 [facility] White Blood 10.2 10^3/uL N 3.5-10.[address] [place] [address] [phone] Red Blood Count 4.14 10^6/uL N 4.00-5.40 [...] Blood Cells % 0.1 Laboratory test 07/24/2018 [facility] C Reactive 17.97 mg/L High <8.[address] [place] [place] [address] [phone] 1 Because ethnic data is not always [...] dialysis) Procedures Date Code Description Status 06/05/2018 00479 ECHO Transthorasic Realtime 2D W Doppler & Color Flow Hosp Completed 06/05/2018 49034 EKG, Interpretation Only Completed 06/05/2018 59025 Amputation Toe MP JT Completed 06/05/2018 02085 Amputation Toe MP JT Completed 08/24/2017 19441 ECHO Transthorasic Realtime 2D W Doppler & Color Flow Hosp Completed 12/29/2016 55273 EKG, Interpretation Only Completed 02/20/2016 61473 EEG Recording Awake & Asleep Completed 02/19/2016 80642 EEG Recording Awake & Drowsy Completed 10/12/2013 40665 Treadmill Interp/Report Only Completed 10/12/2013 40780 Stress Test Supervsn W/Out I/R Completed Encounters Type Date Location Provider Dx Diagnosis Office Visit 10/08/2018 [facility] Ari Watson M79.671 Pain in right 3:20p Infectious Fred Pinto foot Diseases Office Visit 10/01/2018 [facility] Ari Storey L97.529 Non- pressure 1:20p Infectious ALISON Schwartz chronic ulcer Diseases oth prt left foot w unsp severity L03.116 Cellulitis of left lower limb B35.4 Tinea corporis E11.621 Type 2 diabetes mellitus with foot ulcer Office Visit 09/23/2018 [facility] Arden Watson L97.529 Non-pressure 9:10a For Infectious Fred Pinto chronic ulcer oth Diseases prt left foot w unsp severity L03.116 Cellulitis of left lower limb B35.4 Tinea corporis E11.621 Type 2 diabetes mellitus with foot ulcer Office Visit 09/15/2018 [facility] Arden Watson E11.69 Type 2 diabetes 10:30a For Infectious Fred Pinto mellitus with Diseases other specified complication Z89.411 Acquired absence of right great toe I89.0 Lymphedema, not elsewhere classified Office Visit 08/11/2018 9:50a [facility] Arden Watson I89.0 Lymphedema, not Infectious Fred Pinto elsewhere Diseases classified E11.69 Type 2 diabetes mellitus with other specified complication M86.671 Other chronic osteomyelitis, right ankle and foot Office Visit 08/04/2018 10:30a [facility] Arden Watson B95.62 Methicillin resis For Infectious Fred Pinto staph infct Diseases causing diseases classd elsr E11.69 Type 2 diabetes mellitus with other specified complication Z89.411 Acquired absence of right great toe N18.3 Chronic kidney disease, stage 3 (moderate) M86.671 Other chronic osteomyelitis, right ankle and foot D50.9 Iron deficiency anemia, unspecified Office Visit 07/29/2018 [facility] Arden Watson M86.671 Other chronic 10:50a For Infectious Lashonda PintoDKedar osteomyelitis, Diseases right ankle and foot B95.62 Methicillin resis staph infct causing diseases classd elsr E11.69 Type 2 diabetes mellitus with other specified complication D50.9 Iron deficiency anemia, unspecified Office Visit 07/24/2018 [facility] Arden Watson M86.671 Other chronic 10:50a For Infectious Lashonda PintoD. osteomyelitis, Diseases right ankle and foot B95.62 Methicillin resis staph infct causing diseases classd elswhr E11.69 Type 2 diabetes mellitus with other specified complication Office Visit 06/30/2018 [facility] Arden Watson M86.671 Other chronic 9:30a For Infectious Fred Pinto osteomyelitis, Diseases right ankle and foot 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 ankle and foot Office Visit 06/15/2018 [facility] Arden Watson M86.671 Other chronic 12:11p For Infectious [place]queen, osteomyelitis, right Diseases M.D. ankle and foot Z89.411 Acquired absence of right great toe Office Visit 06/15/2018 [facility] Emily A41.02 Sepsis due to 8:50a Assoc,asher Steel M.D. Methicillin Hospitalists resistant Staphylococcus aureus N17.9 Acute kidney failure, unspecified N18.3 Chronic kidney disease, stage 3 (moderate) E11.22 Type 2 diabetes mellitus w diabetic chronic kidney disease Z89.421 Acquired absence of other right toe(s) M86.9 Osteomyelitis, unspecified E11.69 Type 2 diabetes mellitus with other specified complication Office Visit 06/13/2018 8:49a [facility] Simran N17.9 Acute kidney Assoc,asher Zhang, DO failure, Hospitalists unspecified A41.02 Sepsis due to Methicillin resistant Staphylococcus aureus N18.3 Chronic kidney disease, stage 3 (moderate) E11.69 Type 2 diabetes mellitus with other specified complication E11.22 Type 2 diabetes mellitus w diabetic chronic kidney disease M86.9 Osteomyelitis, unspecified I50.30 Unspecified diastolic (congestive) heart failure Office Visit 06/11/2018 [facility] Arden Watson E11.69 Type 2 diabetes 12:05p For Infectious Francisco Pinto. 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 [facility] Assoc,asher Zhang, DO failure, Hospitalists unspecified A41.02 Sepsis due to Methicillin resistant Staphylococcus aureus N18.3 Chronic kidney disease, stage 3 (moderate) M86.9 Osteomyelitis, unspecified E11.69 Type 2 diabetes mellitus with other specified complication E11.22 Type 2 diabetes mellitus w diabetic chronic kidney disease I50.30 Unspecified diastolic (congestive) heart failure Office Visit 06/10/2018 8:48a [facility] Simran N17.9 Acute kidney Assoc,pc Vicente, DO failure, Hospitalists unspecified N18.3 Chronic kidney disease, stage 3 (moderate) M86.9 Osteomyelitis, unspecified A41.02 Sepsis due to Methicillin resistant Staphylococcus aureus E11.69 Type 2 diabetes mellitus with other specified complication E11.22 Type 2 diabetes mellitus w diabetic chronic kidney disease I50.30 Unspecified diastolic (congestive) heart failure [facility] Sepsis due to 8:48a Assocasher M.D. Methicillin Hospitalists resistant Staphylococcus aureus N17.9 Acute kidney failure, unspecified M86.171 Other acute osteomyelitis, right ankle and foot E11.69 Type 2 diabetes mellitus with other specified complication N04.9 Nephrotic syndrome with unspecified morphologic changes E11.22 Type 2 diabetes mellitus w diabetic chronic kidney disease N18.3 Chronic kidney disease, stage 3 (moderate) [facility] Sepsis due to 8:47a Assocasher M.D. Methicillin Hospitalists resistant Staphylococcus aureus N17.9 Acute kidney failure, unspecified M86.171 Other acute osteomyelitis, right ankle and foot E11.69 Type 2 diabetes mellitus with other specified complication N04.9 Nephrotic syndrome with unspecified morphologic changes E11.22 Type 2 diabetes mellitus w diabetic chronic kidney disease N18.3 Chronic kidney disease, stage 3 (moderate) Office Visit 06/08/2018 [facility] Arden Watson E11.69 Type 2 diabetes 10:49a For Ivan Pinto M.D. mellitus with Diseases other specified complication M86.171 Other acute osteomyelitis, right ankle and foot N17.9 Acute kidney failure, unspecified N04.9 Nephrotic syndrome with unspecified morphologic changes R78.81 Bacteremia E11.21 Type 2 diabetes mellitus with diabetic nephropathy [facility] A[facility] Sepsis due to 8:47a [...] disease, stage 3 (moderate) [facility] A[facility].02 Sepsis due to 8:47a [...] disease, stage 3 (moderate) Office Visit 06/05/2018 [facility] Cortney A41.02 Sepsis due to 8:47a [...] stage 3 (moderate) Office Visit 06/04/2018 8:46a [facility] Cortney N17.9 Acute kidney asher Wells [...] with oth severity Office Visit 11/07/2017 8:34a [facility] Emily Steel, R06.02 Shortness of asher Wells M.D. breath Hospitalists Office Visit 11/06/2017 8:33a [facility] Emily Steel, R06.02 Shortness of asher Wells M.D. breath Hospitalists E11.21 Type 2 diabetes mellitus with diabetic nephropathy R05 Cough N18.4 Chronic kidney disease, stage 4 (severe) Office Visit 11/05/2017 8:33a [facility] Jt R06.02 Shortness of Assoc,HOMAR Blanc breath Hospitalists E11.21 Type 2 diabetes mellitus with diabetic nephropathy R05 Cough N18.4 Chronic kidney disease, stage 4 (severe) Office Visit 2017 8:32a [facility] Jt R06.02 Shortness of Assoc,HOMAR Blanc breath Hospitalists E11.21 Type 2 diabetes mellitus with diabetic nephropathy R05 Cough N18.4 Chronic kidney disease, stage 4 (severe) Office Visit 11/03/2017 8:31a [facility] Jt R06.02 Shortness of Assoc,HOMAR Blanc breath Hospitalists E11.21 Type 2 diabetes mellitus with diabetic nephropathy R05 Cough N18.4 Chronic kidney disease, stage 4 (severe) Office Visit 11/02/2017 [facility] Juana J44.1 Chronic 8:29a asher Wells, ALISON obstructive Hospitalists pulmonary disease w (acute) exacerbation R05 Cough R06.02 Shortness of breath [facility] R60.1 Generalized edema 9:20a asher Wells M.D. Hospitalists E11.22 Type 2 diabetes mellitus w diabetic chronic kidney disease N18.3 Chronic kidney disease, stage 3 (moderate) I10 Essential (primary) hypertension [facility]2017 [facility], R60.1 Generalized edema 9:19a asher Wells M.D. 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 right upper limb Diseases E11.40 Type 2 diabetes mellitus with diabetic neuropathy, unsp Office Visit 01/15/2017 [facility] Guillermina L03.113 Cellulitis of 10:30a Services Of Fred Horta right upper limb C.M.A. 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 right upper limb Hospitalists E11.40 Type 2 diabetes mellitus with diabetic neuropathy, unsp I10 Essential (primary) hypertension N17.9 Acute kidney failure, unspecified Office Visit 01/07/2017 [facility] Grace L03.113 Cellulitis of 10:07a Services Of CKedarMNIRALI Parrish right upper limb Office Visit 01/07/2017 [facility] Nancie Amaral, L03.113 Cellulitis of 8:29a Assmalathi,pc N.P. right upper limb Hospitalists N17.9 Acute kidney failure, unspecified E11.40 Type 2 diabetes mellitus with diabetic neuropathy, unsp I10 Essential (primary) hypertension Office Visit 01/06/2017 2:22p [facility] Arden Watson 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 Infectious Fred Pinto disorders Diseases L03.113 Cellulitis of right upper limb M10.9 Gout, unspecified R79.82 Elevated C-reactive protein (CRP) Office [facility] 01/06[facility]2017 [facility] L03.113 Cellulitis of Assoc,pc N.P. right upper limb Hospitalists N17.9 Acute kidney failure, unspecified E11.40 Type 2 diabetes mellitus with diabetic neuropathy, unsp I10 Essential (primary) hypertension Office Visit 01/05/2017 8:26a [facility], L03.113 Cellulitis of Assoc,pc N.P. right upper limb Hospitalists N17.9 Acute kidney failure, unspecified E11.40 Type 2 diabetes mellitus with diabetic neuropathy, unsp I10 Essential (primary) hypertension Office Visit 01/04/2017 8:44a [facility] Munir, L03.113 Cellulitis of Assoc,pc N.P. right upper limb Hospitalists N17.9 Acute kidney failure, unspecified E11.40 Type 2 diabetes mellitus with diabetic neuropathy, unsp I10 Essential (primary) hypertension Office Visit 01/03/2017 [facility] L03.113 Cellulitis of 8:43a asher Wells, ALISON right upper limb Hospitalists N17.9 Acute kidney failure, unspecified E11.40 Type 2 diabetes mellitus with diabetic neuropathy, unsp I10 Essential (primary) hypertension Office Visit 01/03/2017 10:11a [facility] Bayron F M79.89 Other specified Services Of MD Ruchi soft tissue C.M.A. disorders Office Visit 01/03/2017 2:06p [facility] Arden Watson 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 Infectious Fred Pinto disorders Diseases L03.113 Cellulitis of right upper limb R79.82 Elevated C-reactive protein (CRP) E11.9 Type 2 diabetes mellitus without complications Office Visit 01/02/2017 [facility] L03.113 Cellulitis of 8:43a asher Wells, [employer] AP[employer]IS[employer] right upper limb Hospitalists N17.9 Acute kidney failure, unspecified E11.40 Type 2 diabetes mellitus with diabetic neuropathy, unsp I10 Essential (primary) hypertension Office Visit 01/02/2017 11:06a [facility] Arden Watson 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 Infectious Fred Pinto disorders Diseases L03.113 Cellulitis of right upper limb E11.9 Type 2 diabetes mellitus without complications M10.9 Gout, unspecified Office Visit 01/01/2017 10:58a [facility] Arden Watson 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 Infectious Fred Pinto disorders Diseases L03.113 Cellulitis of right upper limb E11.9 Type 2 diabetes mellitus without complications M10.9 Gout, unspecified Office Visit 01/01/2017 [facility] L03.113 Cellulitis of 8:42a asher Wells, ALISON right upper limb Hospitalists N17.9 Acute kidney failure, unspecified E11.40 Type 2 diabetes mellitus with diabetic neuropathy, unsp I10 Essential (primary) hypertension Office Visit 12/31/2016 [facility] L03.113 Cellulitis of 8:42a asher Wells [employer] right upper limb Hospitalists N17.9 Acute kidney failure, unspecified E11.40 Type 2 diabetes mellitus with diabetic neuropathy, unsp I10 Essential (primary) hypertension Office Visit 12/31/2016 10:53a [facility] Arden Watson 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 Infectious Fred Pinto disorders Diseases M25.421 Effusion, right elbow L03.113 Cellulitis of right upper limb E11.9 Type 2 diabetes mellitus without complications Office Visit 12/30/2016 [facility] L03.113 Cellulitis of 8:41a asher Wells, [employer] right upper limb Hospitalists N17.9 Acute kidney failure, unspecified E11.40 Type 2 diabetes mellitus with diabetic neuropathy, unsp I10 Essential (primary) hypertension Office Visit 12/30/2016 10:46a [facility] Ari Watson M79.631 Pain in right Infectious Fred Pinto forearm Diseases M79.89 Other specified soft tissue disorders E11.9 Type 2 diabetes mellitus without complications Office Visit 12/29/2016 [facility] L03.113 Cellulitis of 8:40a asher Wells, [employer] right upper limb Hospitalists N17.9 Acute kidney failure, unspecified E11.40 Type 2 diabetes mellitus with diabetic neuropathy, unsp I10 Essential (primary) hypertension Office Visit 02/21/2016 [facility] Matt R41.82 Altered mental 12:40p Assoc,asher Nielsen MD status, Hospitalists unspecified E11.8 Type 2 diabetes mellitus with unspecified complications I10 Essential (primary) hypertension M79.605 Pain in left leg Office Visit 02/20/2016 [facility] Matt R41.82 Altered mental 12:38p Assoc,asher Nielsen MD status, Hospitalists unspecified E11.8 Type 2 diabetes mellitus with unspecified complications I10 Essential (primary) hypertension M79.605 Pain in left leg Office Visit 02/19/2016 [facility] R41.82 Altered mental 4:15p [facility] status, unspecified M79.605 Pain in left leg R20.0 Anesthesia of skin Office Visit 02/19/2016 [facility] Eyal M54.16 Radiculopathy, 12:37p Assoc,asher Dixon N.P. lumbar region Hospitalists R41.82 Altered mental status, unspecified I10 Essential (primary) hypertension E11.8 Type 2 diabetes mellitus with unspecified complications Office Visit 10/12/2013 10:54a [facility] 786.51 Pain Precordial Assoc,asher Thurman M.D. Hospitalists 276.1 Hyposmolality & Or Hyponatremia 250.00 Diabetes Mellitus W/O Compl Type II Or Unspec Controlled Office Visit 10/11/2013 10:46a [facility] 786.51 Pain Precordial Assoc,asher Thurman M.D. Hospitalists 276.1 Hyposmolality & Or Hyponatremia 250.00 Diabetes Mellitus W/O Compl Type II Or Unspec Controlled Plan of Treatment 10/08/2018 - Arden Pinto M.D.M79.671 Pain in right footNew Medication: Tramadol HCL 50 mg - one by mouth twice daily as needed for painDoxycycline Hyclate 100 mg - 1 by mouth twice a dayComments:slight erythema lateral foot with tenderness; CRP done in ER yesterday is increased while on keflex;may be early foot infection will add doxycycline and he will continue keflex that he has been on for left foot cellulitis, which is improved . To ER if worsening pain or redness.
[2018-11-13] MEDS ORDERED: Furosemide IV* 10 MG/ML VIAL (40 MG) IV SLOW PU ONE (18:04)
[2018-11-13 18:45] LABS: ABS Basophils 0.1 10^3/ul (0-0.2); ABS Eosinophils 0.2 10^3/ul (0-0.6); ABS Lymphocytes 1.2 10^3/ul (1.0-4.8); ABS Monocytes 0.6 10^3/ul (0-0.8); ABS Neutrophils 5.3 10^3/ul (1.5-7.7); Eosinophil % 3.3 %; Hematocrit 27 % (42-52); Hemoglobin 9.1 g/dL (14.0-18.0); Lymphocyte % 16.2 %; Mean Corpuscular HGB Conc 33 g/dL (31-36); Mean Corpuscular Hemoglobin 26 pg (27-31); Mean Corpuscular Volume 79 fL (80-94); Mean Platelet Volume 7.7 fL (7.4-10.4); Platelet Count 270 10^3/uL (150-450); Red Blood Count 3.43 10^6 /uL (4.18-5.48); Red Cell Distribution Width 17 % (10.5-15); White Blood Count 7.5 10^3/uL (3.5-10.8)
[2018-11-13 19:07] LABS: Albumin 3.8 g/dL (3.2-5.2); BUN/Creatinine Ratio 13.5 (8-20); C Reactive Protein 27.54 mg/L (<8.01); Calcium 8.5 mg/dL (8.6-10.3); EGFR African American 26.2 (>60); EGFR Non-African American 21.6 (>60); Globulin 3.9 g/dL (2-4); Potassium 4.4 mmol/L (3.5-5.0); Total Bilirubin 0.3 mg/dL (0.2-1.0); Total Protein 7.7 g/dL (6.4-8.9)
[2018-11-13 19:09] LABS: Troponin I 0.01 ng/mL (<0.04)
--- NOTE | 2018-11-13 19:14 | ED ---
Respiratory - HPI Summary HPI Summary: 63-year-old male presents with shortness of breath for the past 3 days. He states he feels like he is retaining fluids. He states it is worse at night and when he tried to lay down. He states has to sleep on more pills. Has not checked his weight. He denies any fevers. He admits to dry cough. Has history of bronchitis associated feels different. He is nonsmoker. He denies any chest pain. He states the shortness breath is intermittent. He states he is not able to to walk as far as he normally is able to. He denies abdominal pain. No nausea vomiting. Has been following up with the wound clinic for her right foot. He states that they discharged him because he was doing well. not currently on antibiotics. - History of Current Complaint Chief Complaint: EDExtremityLower Stated Complaint: DIFFICULTY BREATHING AND BOTH LEGS SWOLLEN PER PT Time Seen by Provider: 11/13/18 17:55 Pain Intensity: 0 - Allergy/Home Medications Allergies/Adverse Reactions: Allergies Allergy/AdvReac Type Severity Reaction Status Date / Time lisinopril Allergy Difficulty Verified 11/13/18 17:32 Breathing niacin Allergy Rash Verified 11/13/18 17:32 PMH/Surg Hx/FS Hx/Imm Hx Endocrine/Hematology History: Reports: Hx Diabetes - TYPE 2 / ON ORAL MEDS, Hx Thyroid Disease Cardiovascular History: Reports: Hx Angina, Hx Hypercholesterolemia, Hx Hypertension Denies: Hx Coronary Artery Disease, Hx Myocardial Infarction, Hx Pacemaker/ ICD, Hx Valvular Heart Disease, Other Cardiovascular Problems/Disorders Respiratory History: Reports: Hx Chronic Obstructive Pulmonary Disease (COPD), Hx Pneumonia, Other Respiratory Problems/Disorders - uses albuterol inhaler at home Denies: Hx Asthma GI History: Denies: Hx Ulcer History: Reports: Other Problems/Disorders - Chronic kidney disease stage 3 Denies: Hx Kidney Stones Musculoskeletal History: Reports: Hx Back Problems - back pain, Hx Gout, Other Musculoskeletal History - HIP PAIN Denies: Hx Arthritis, Hx Osteoporosis, Hx Scoliosis Sensory History: Reports: Hx Contacts or Glasses Denies: Hx Hearing Aid Opthamlomology History: Reports: Hx Contacts or Glasses Neurological History: Reports: Hx Headaches Denies: Other Neuro Impairments/Disorders Psychiatric History: Reports: Hx Anxiety, Hx Depression, Hx Panic Disorder - Surgical History Surgery Procedure, Year, and Place: POLYPS REMOVED INTESTINE. APPENDECTOMY. KNEE SURGERY 1998 Hx Anesthesia Reactions: No Infectious Disease History: No Infectious Disease History: Denies: Hx Clostridium Difficile, Hx Hepatitis, Hx Human Immunodeficiency Virus (HIV), Hx of Known/Suspected MRSA, Hx Shingles, Hx Tuberculosis, Hx Known/ Suspected VRE, Hx Known/Suspected VRSA, History Other Infectious Disease, Traveled Outside the [place] in Last 30 Days - Family History Known Family History: Positive: Cardiac Disease - [place] - grandfather, Hypertension - father, Diabetes - mother, Other - father - asthma, emphysema - Social History Alcohol Use: None Alcohol Amount: quit Hx Substance Use: No Substance Use Type: Reports: None Hx Tobacco Use: No Smoking Status (MU): Never Smoked Tobacco Review of Systems Negative: Fever Negative: Chest Pain Positive: Shortness Of Breath, Cough Negative: Abdominal Pain All Other Systems Reviewed And Are Negative: Yes Physical Exam Triage Information Reviewed: Yes Vital Signs On Initial Exam: Initial Vitals Temp Pulse Resp BP Pulse Ox 99.7 F 57 20 148/68 97 11/13/18 17:27 11/13/18 17:27 11/13/18 17:27 11/13/18 17:27 11/13/18 17:27 Vital Signs Reviewed: Yes Appearance: Positive: Well-Appearing Skin: Positive: Warm, Dry Head/Face: Positive: Normal Head/Face Inspection Eyes: Positive: Normal, EOMI, ANDERS, Conjunctiva Clear ENT: Positive: Pharynx normal Respiratory/Lung Sounds: Positive: Clear to Auscultation, Breath Sounds Present Cardiovascular: Positive: Normal, RRR Abdomen Description: Positive: Nontender, Soft Bowel Sounds: Positive: Present Musculoskeletal: Positive: Normal Neurological: Positive: Normal Psychiatric: Positive: Normal Diagnostics - Vital Signs Vital Signs Temp Pulse Resp BP Pulse Ox 11/13/18 18:26 59 157/74 98 11/13/18 18:01 63 96 11/13/18 17:27 99.7 F 57 20 148/68 97 - Laboratory Lab Results: Lab Results 11/13/18 11/13/18 11/13/18 Range/Units 18:17 18:18 18:18 WBC 7.5 (3.5-10.8) 10^3/uL RBC 3.43 L (4.18-5.48) 10^6 /uL Hgb 9.1 L (14.0-18.0) g/dL Hct 27 L (42-52) % MCV 79 L (80-94) fL MCH 26 L (27-31) pg MCHC 33 (31-36) g/dL RDW 17 H (10.5-15) % Plt Count 270 (150-450) 10^3/uL MPV 7.7 (7.4-10.4) fL Neut % (Auto) 71.0 % Lymph % (Auto) 16.2 % [place] % (Auto) 8.4 % Eos % (Auto) 3.3 % Baso % (Auto) 1.1 % Absolute Neuts (auto) 5.3 (1.5-7.7) 10^3/ul Absolute Lymphs (auto) 1.2 (1.0-4.8) 10^3/ul Absolute Monos (auto) 0.6 (0-0.8) 10^3/ul Absolute Eos (auto) 0.2 (0-0.6) 10^3/ul Absolute Basos (auto) 0.1 (0-0.2) 10^3/ul Absolute Nucleated RBC 0.0 10^3/ul Nucleated RBC % 0.0 Sodium 138 (135-145) mmol/L Potassium 4.4 (3.5-5.0) mmol/L Chloride 109 (101-111) mmol/L Carbon Dioxide 22 (22-32) mmol/L Anion Gap 7 (2-11) mmol/L BUN 40 H (6-24) mg/dL Creatinine 2.96 H (0.67-1.17) mg/dL Est GFR ( Amer) 26.2 (>60) Est GFR (Non-Af Amer) 21.6 (>60) BUN/Creatinine Ratio 13.5 (8-20) Glucose 138 H (70-100) mg/dL Lactic Acid 0.7 (0.5-2.0) mmol/L Calcium 8.5 L (8.6-10.3) mg/dL Total Bilirubin 0.30 (0.2-1.0) mg/dL AST 13 (13-39) U/L ALT 12 (7-52) U/L Alkaline Phosphatase 50 (34-104) U/L Troponin I 0.01 (<0.04) ng/mL C-Reactive Protein 27.54 H (<8.01) mg/L B-Natriuretic Peptide (<=100) pg/mL Total Protein 7.7 (6.4-8.9) g/dL Albumin 3.8 (3.2-5.2) g/dL Globulin 3.9 (2-4) g/dL Albumin/Globulin Ratio 1.0 (1-3) /09/29 Range/Units 18:18 WBC (3.5-10.8) 10^3/uL RBC (4.18-5.48) 10^6 /uL Hgb (14.0-18.0) g/dL Hct (42-52) % MCV (80-94) fL MCH (27-31) pg MCHC (31-36) g/dL RDW (10.5-15) % Plt Count (150-450) 10^3/uL MPV (7.4-10.4) fL Neut % (Auto) % Lymph % (Auto) % [place] % (Auto) % Eos % (Auto) % Baso % (Auto) % Absolute Neuts (auto) (1.5-7.7) 10^3/ul Absolute Lymphs (auto) (1.0-4.8) 10^3/ul Absolute Monos (auto) (0-0.8) 10^3/ul Absolute Eos (auto) (0-0.6) 10^3/ul Absolute Basos (auto) (0-0.2) 10^3/ul Absolute Nucleated RBC 10^3/ul Nucleated RBC % Sodium (135-145) mmol/L Potassium (3.5-5.0) mmol/L Chloride (101-111) mmol/L Carbon Dioxide (22-32) mmol/L Anion Gap (2-11) mmol/L BUN (6-24) mg/dL Creatinine (0.67-1.17) mg/dL Est GFR ( Amer) (>60) Est GFR (Non-Af Amer) (>60) BUN/Creatinine Ratio (8-20) Glucose (70-100) mg/dL Lactic Acid (0.5-2.0) mmol/L Calcium (8.6-10.3) mg/dL Total Bilirubin (0.2-1.0) mg/dL AST (13-39) U/L ALT (7-52) U/L Alkaline Phosphatase (34-104) U/L Troponin I (<0.04) ng/mL C-Reactive Protein (<8.01) mg/L B-Natriuretic Peptide 577 H (<=100) pg/mL Total Protein (6.4-8.9) g/dL Albumin (3.2-5.2) g/dL Globulin (2-4) g/dL Albumin/Globulin Ratio (1-3) Result Diagrams: 11/13/18 18:18 11/13/18 18:18 Lab Statement: Any lab studies that have been ordered have been reviewed, and results considered in the medical decision making process. - Radiology chest Radiology Interpretation Completed By: Radiologist Summary of Radiographic Findings: IMPRESSION: FINDINGS CONSISTENT WITH COPD, NO EVIDENCE FOR ACUTE DISEASE. Re-Evaluation - Re-Evaluation First Eval Re-Evaluation Time: 19:21 Comment: states has been feeling better but a little wheezing. Second Eval Re-Evaluation Time: 20:26 Change: Improved Comment: feeling better would like to go home Disposition - Course Course Of Treatment: 63-year-old male presents with shortness of breath for the past 3 days. He states he feels like he is retaining fluids. He states it is worse at night and when he tried to lay down. He states has to sleep on more pills. Has not checked his weight. He denies any fevers. He admits to dry cough. Has history of bronchitis associated feels different. He is nonsmoker. He denies any chest pain. He states the shortness breath is intermittent. He states he is not able to to walk as far as he normally is able to. He denies abdominal pain. No nausea vomiting. Has been following up with the wound clinic for her right foot. He states that they discharged him because he was doing well. not currently on antibiotics. On exam lungs clear to auscultation with decreased breath sounds heard. Having edema noted to bilteral legs. no wound seen on right foot. EKG shows sinus bradycardia. wbc normal. Anemic consistent with previous. kidney function consistent with previous. BNP is 500. Gave Lasix and feeling better. ambulated to bathroom without difficulty o2 stat not drop below 97. chest xray shows copd. gave breathing treatment and feeling better. discussed patient states this does not feel like normal bronchitis so will hold off on steriods at this time. told to use inhaler otherwise. discussed increasing lasix and patient would like to do it gradually. will increase lasix to 60mg in morning and 40mg at night for next week. told to limit salt intake and elevated legs. told needs to follow up Friday or Friday to reevaluate lasix dose to see if needs to be increased from there. told if develop worsening sob or chest pain to return. patient understand and agrees with plan. - Differential Dx - Cardiopulmonary Differential Diagnoses - Cardiopulmonary: Bronchitis, CHF, Lower Resp Infection - Diagnoses Provider Diagnoses: Shortness of breath, (HFpEF) heart failure with preserved ejection fraction Discharge - Sign-Out/Discharge Documenting (check all that apply): Patient Departure Patient Received Moderate/Deep Sedation with Procedure: No - Discharge Plan Condition: Good Disposition: HOME Prescriptions: Furosemide TAB* [Lasix TAB*] 20 mg PO DAILY #7 tab Patient Education Materials: Heart Failure (ED) Referrals: Daiana Bautista [Primary Care Provider] - Additional Instructions: increase lasix to 60mg morning and 40mg at night use compression socks, elevated legs record daily weight limit salt intake Follow up with primary within 4 days Return to ED if develop chest pain, worsening shortness of breath or any new or worsening symptoms - Billing Disposition and Condition Condition: GOOD Disposition: Home
[2018-11-13] MEDS ORDERED: Albuterol/Ipratropium NEB.SOL* Albuterol 2.5 MG/Ipratropium 0.5 MG 3 ML INH ONE (19:20)
[2018-11-13 20:56] VITALS: BP 141/69
== END 2018-11-13 20:54 | disposition home or self-care (01) ==
LOC: ED 17:17
DX: I11.0 Hypertensive heart disease with heart failure (principal); I50.30 Unspecified diastolic (congestive) heart failure; E11.9 Type 2 diabetes mellitus without complications; E07.9 Disorder of thyroid, unspecified; E78.00 Pure hypercholesterolemia, unspecified; J44.9 Chronic obstructive pulmonary disease, unspecified; F41.9 Anxiety disorder, unspecified; F32.9 Major depressive disorder, single episode, unspecified; R06.02 Shortness of breath; Z88.8 Allergy status to other drugs, medicaments and biological substances; Z79.84 Long term (current) use of oral hypoglycemic drugs; Z79.51 Long term (current) use of inhaled steroids
CPT/HCPCS: 36415; 71046; 80053; 83605; 83880; 84484; 85025; 86140; 93005; 96374; 99282; A9270-GY; J1940

== ENCOUNTER 2018-11-17 10:12 | Emergency (ER) | payer MEDICARE, MEDICAID ==
[2018-11-17 12:10] LABS: ABS Basophils 0.1 10^3/ul (0-0.2); ABS Eosinophils 0.3 10^3/ul (0-0.6); ABS Lymphocytes 1.4 10^3/ul (1.0-4.8); ABS Monocytes 0.5 10^3/ul (0-0.8); ABS Neutrophils 5.5 10^3/ul (1.5-7.7); Eosinophil % 3.3 %; Hematocrit 30 % (42-52); Hemoglobin 10.1 g/dL (14.0-18.0); Lymphocyte % 17.6 %; Mean Corpuscular HGB Conc 34 g/dL (31-36); Mean Corpuscular Hemoglobin 26 pg (27-31); Mean Corpuscular Volume 78 fL (80-94); Nucleated Red Blood Cells % 0.1; Platelet Count 304 10^3/uL (150-450); Red Blood Count 3.85 10^6 /uL (4.18-5.48); Red Cell Distribution Width 16 % (10.5-15); White Blood Count 7.8 10^3/uL (3.5-10.8)
[2018-11-17 12:21] LABS: BUN/Creatinine Ratio 13.5 (8-20); C Reactive Protein 15.62 mg/L (<8.01); Calcium 9.1 mg/dL (8.6-10.3); EGFR African American 24.8 (>60); EGFR Non-African American 20.5 (>60); Globulin 4.1 g/dL (2-4); Potassium 4.4 mmol/L (3.5-5.0); Total Bilirubin 0.3 mg/dL (0.2-1.0); Total Protein 8.1 g/dL (6.4-8.9)
[2018-11-17 12:23] LABS: Troponin I 0.01 ng/mL (<0.04)
--- NOTE | 2018-11-17 13:05 | ED ---
Lower Extremity - HPI Summary HPI Summary: Patient is a 63 y/o male who presents to the ED c/o edema. He was here on for SOB and edema, and his Lasix dose was increased. Patient still reports intermittent SOB and BLE edema. Pain is rated a 4/10 in severity. He denies any CP, abdominal pain, fever, or chills. He was sent here by his PCP for further evaluation, who believes that the diuretic is no longer working. Patient is accompanied by his daughter. PMHx DM, HTN, CHF, COPD, CKD. He denies the use of blood thinners. - History of Current Complaint Chief Complaint: EDExtremityLower Stated Complaint: RETAINING FLUID PER PT Time Seen by Provider: 11/17/18 12:59 Hx Obtained From: Patient, Family/Career Resource Specialist - Daughter, Medical Records Mechanism Of Injury: Other - No injury Onset/Duration: Still Present Severity Currently: Moderate Pain Intensity: 4 Pain Scale Used: 0-10 Numeric Timing: Constant Location: Is Discrete @ - BLE Associated Signs And Symptoms: Positive: Swelling Aggravating Factor(s): Nothing Alleviating Factor(s): Nothing - Allergies/Home Medications Allergies/Adverse Reactions: Allergies Allergy/AdvReac Type Severity Reaction Status Date / Time lisinopril Allergy Difficulty Verified 11/17/18 13:31 Breathing niacin Allergy Rash Verified 11/17/18 13:31 PMH/Surg Hx/FS Hx/Imm Hx Endocrine/Hematology History: Reports: Hx Diabetes - TYPE 2 / ON ORAL MEDS, Hx Thyroid Disease Cardiovascular History: Reports: Hx Angina, Hx Congestive Heart Failure, Hx Hypercholesterolemia, Hx Hypertension Denies: Hx Coronary Artery Disease, Hx Myocardial Infarction, Hx Pacemaker/ ICD, Hx Valvular Heart Disease, Other Cardiovascular Problems/Disorders Respiratory History: Reports: Hx Chronic Obstructive Pulmonary Disease (COPD), Hx Pneumonia, Other Respiratory Problems/Disorders - uses albuterol inhaler at home Denies: Hx Asthma GI History: Denies: Hx Ulcer History: Reports: Other Problems/Disorders - Chronic kidney disease stage 3 Denies: Hx Kidney Stones Musculoskeletal History: Reports: Hx Back Problems - back pain, Hx Gout, Other Musculoskeletal History - HIP PAIN Denies: Hx Arthritis, Hx Osteoporosis, Hx Scoliosis Sensory History: Reports: Hx Contacts or Glasses Denies: Hx Hearing Aid Opthamlomology History: Reports: Hx Contacts or Glasses Neurological History: Reports: Hx Headaches Denies: Other Neuro Impairments/Disorders Psychiatric History: Reports: Hx Anxiety, Hx Depression, Hx Panic Disorder - Surgical History Surgery Procedure, Year, and Place: POLYPS REMOVED INTESTINE. APPENDECTOMY. KNEE SURGERY 1998 Hx Anesthesia Reactions: No Infectious Disease History: No Infectious Disease History: Denies: Hx Clostridium Difficile, Hx Hepatitis, Hx Human Immunodeficiency Virus (HIV), Hx of Known/Suspected MRSA, Hx Shingles, Hx Tuberculosis, Hx Known/ Suspected VRE, Hx Known/Suspected VRSA, History Other Infectious Disease, Traveled Outside the [place] in Last 30 Days - Family History Known Family History: Positive: Cardiac Disease - [place] - grandfather, Hypertension - father, Diabetes - mother, Other - father - asthma, emphysema - Social History Alcohol Use: None Alcohol Amount: quit Hx Substance Use: No Substance Use Type: Reports: None Hx Tobacco Use: No Smoking Status (MU): Never Smoked Tobacco Review of Systems Negative: Fever, Chills Negative: Chest Pain Positive: Shortness Of Breath - intermittent Negative: Abdominal Pain Positive: Edema - BLE All Other Systems Reviewed And Are Negative: Yes Physical Exam - Summary Physical Exam Summary: GENERAL: Patient is a well-developed and nourished M who is lying comfortable in the stretcher. Patient is not in any acute respiratory distress. HEAD AND FACE: Normocephalic EYES: PERRLA, EOMI x 2. EARS: Hearing grossly intact. MOUTH: Oropharynx within normal limits. NECK: Supple, trachea is midline, no adenopathy, no JVD, no carotid bruit. CHEST: Symmetric, no tenderness at palpation LUNGS: Clear to auscultation bilaterally. No wheezing or crackles. CVS: Regular rate and rhythm, S1 and S2 present, no murmurs or gallops appreciated. ABDOMEN: Soft, non-tender. Bowel sounds are normal. No abnormal abdominal pulsations. EXTREMITIES: Full ROM in all major joints, no cyanosis or clubbing. 3+ pitting edema of BLE. Erythema on anterior aspect of left foot. Right great toe amputation. NEURO: Alert and oriented x 3. No acute neurological deficits. Speech is normal and follows commands. SKIN: Dry and warm Triage Information Reviewed: Yes Vital Signs On Initial Exam: Initial Vitals Temp Pulse Resp BP Pulse Ox 98.7 F 55 18 142/65 98 11/17/18 10:26 11/17/18 10:26 11/17/18 10:26 11/17/18 10:26 11/17/18 10:26 Vital Signs Reviewed: Yes Diagnostics - Vital Signs Vital Signs Temp Pulse Resp BP Pulse Ox 11/17/18 12:15 97.9 F 59 18 151/76 96 11/17/18 10:26 98.7 F 55 18 142/65 98 - Laboratory Lab Results: Lab Results 11/17/18 11/17/18 11/17/18 Range/Units 11:55 11:55 11:55 WBC 7.8 (3.5-10.8) 10^3/uL RBC 3.85 L (4.18-5.48) 10^6 /uL Hgb 10.1 L (14.0-18.0) g/dL Hct 30 L (42-52) % MCV 78 L (80-94) fL MCH 26 L (27-31) pg MCHC 34 (31-36) g/dL RDW 16 H (10.5-15) % Plt Count 304 (150-450) 10^3/uL MPV 8.0 (7.4-10.4) fL Neut % (Auto) 71.0 % Lymph % (Auto) 17.6 % [place] % (Auto) 6.7 % Eos % (Auto) 3.3 % Baso % (Auto) 1.4 % Absolute Neuts (auto) 5.5 (1.5-7.7) 10^3/ul Absolute Lymphs (auto) 1.4 (1.0-4.8) 10^3/ul Absolute Monos (auto) 0.5 (0-0.8) 10^3/ul Absolute Eos (auto) 0.3 (0-0.6) 10^3/ul Absolute Basos (auto) 0.1 (0-0.2) 10^3/ul Absolute Nucleated RBC 0.0 10^3/ul Nucleated RBC % 0.1 Sodium 137 (135-145) mmol/L Potassium 4.4 (3.5-5.0) mmol/L Chloride 106 (101-111) mmol/L Carbon Dioxide 21 L (22-32) mmol/L Anion Gap 10 (2-11) mmol/L BUN 42 H (6-24) mg/dL Creatinine 3.10 H (0.67-1.17) mg/dL Est GFR ( Amer) 24.8 (>60) Est GFR (Non-Af Amer) 20.5 (>60) BUN/Creatinine Ratio 13.5 (8-20) Glucose 84 (70-100) mg/dL Lactic Acid 0.6 (0.5-2.0) mmol/L Calcium 9.1 (8.6-10.3) mg/dL Total Bilirubin 0.30 (0.2-1.0) mg/dL AST 14 (13-39) U/L ALT 13 (7-52) U/L Alkaline Phosphatase 55 (34-104) U/L Troponin I 0.01 (<0.04) ng/mL C-Reactive Protein 15.62 H (<8.01) mg/L B-Natriuretic Peptide (<=100) pg/mL Total Protein 8.1 (6.4-8.9) g/dL Albumin 4.0 (3.2-5.2) g/dL Globulin 4.1 H (2-4) g/dL Albumin/Globulin Ratio 1.0 (1-3) /01/29 Range/Units 11:55 WBC (3.5-10.8) 10^3/uL RBC (4.18-5.48) 10^6 /uL Hgb (14.0-18.0) g/dL Hct (42-52) % MCV (80-94) fL MCH (27-31) pg MCHC (31-36) g/dL RDW (10.5-15) % Plt Count (150-450) 10^3/uL MPV (7.4-10.4) fL Neut % (Auto) % Lymph % (Auto) % [place] % (Auto) % Eos % (Auto) % Baso % (Auto) % Absolute Neuts (auto) (1.5-7.7) 10^3/ul Absolute Lymphs (auto) (1.0-4.8) 10^3/ul Absolute Monos (auto) (0-0.8) 10^3/ul Absolute Eos (auto) (0-0.6) 10^3/ul Absolute Basos (auto) (0-0.2) 10^3/ul Absolute Nucleated RBC 10^3/ul Nucleated RBC % Sodium (135-145) mmol/L Potassium (3.5-5.0) mmol/L Chloride (101-111) mmol/L Carbon Dioxide (22-32) mmol/L Anion Gap (2-11) mmol/L BUN (6-24) mg/dL Creatinine (0.67-1.17) mg/dL Est GFR ( Amer) (>60) Est GFR (Non-Af Amer) (>60) BUN/Creatinine Ratio (8-20) Glucose (70-100) mg/dL Lactic Acid (0.5-2.0) mmol/L Calcium (8.6-10.3) mg/dL Total Bilirubin (0.2-1.0) mg/dL AST (13-39) U/L ALT (7-52) U/L Alkaline Phosphatase (34-104) U/L Troponin I (<0.04) ng/mL C-Reactive Protein (<8.01) mg/L B-Natriuretic Peptide 337 H (<=100) pg/mL Total Protein (6.4-8.9) g/dL Albumin (3.2-5.2) g/dL Globulin (2-4) g/dL Albumin/Globulin Ratio (1-3) Result Diagrams: 11/17/18 11:55 11/17/18 11:55 Lab Statement: Any lab studies that have been ordered have been reviewed, and results considered in the medical decision making process. - Radiology CXR Radiology Interpretation Completed By: Radiologist Summary of Radiographic Findings: NO ACTIVE CARDIOPULMONARY DISEASE IS NOTED. ED physician reviewed radiology report. - Ultrasound No standard instances Ultrasound Interpretation Completed By: Radiologist Summary of Ultrasound Findings: Venous Doppler Study: NO EVIDENCE OF DEEP VENOUS THROMBOSIS OF EITHER LOWER EXTREMITY IS PRESENT. Popliteal cyst in the right measuring 4.8 x 1.3 x 2.8 cm. ED physician reviewed radiology report. - EKG 14:34 Cardiac Rate: Bradycardia - 55 bpm EKG Rhythm: Sinus Bradycardia ST Segment: Normal Summary of EKG Findings: Nl axis, nl intervals Re-Evaluation - Re-Evaluation First Eval Re-Evaluation Time: 15:50 Change: Unchanged Comment: Discussed discharge plan. Lower Extremity Course/Dx - Course Course Of Treatment: Patient is a 63 y/o male who presents to the ED c/o BLE edema and SOB. He was here on 11/13/18 for SOB and edema, and his Lasix dose was increased. A physical exam revealed 3+ pitting edema of BLE. Erythema on anterior aspect of left foot. Right great toe amputation. A CXR was negative. An EKG revealed bradycardia at a rate of 55 bpm. A venous Doppler study revealed NO EVIDENCE OF DEEP VENOUS THROMBOSIS OF EITHER LOWER EXTREMITY IS PRESENT. Popliteal cyst in the right measuring 4.8 x 1.3 x 2.8 cm. All bloodwork is at baseline, vital signs are completely stable. In the course patient received 60 mg IV Lasix and Fentanyl. Final dx of BLE edema and popliteal cyst. Patient will be discharged. I discussed results with patient, and he reports feeling better. He is hemodynamically stable and safe for discharge. Strict return precautions given and he will otherwise follow up with his PCP. - Diagnoses Provider Diagnoses: Edema of both lower extremities, Popliteal cyst - Physician Notifications Discussed Care Of Patient With: Emily Steel Time Discussed With Above Provider: 15:48 Instructed by Provider To: Other - She reviewed the records and does not see a reason to admit the patient since normal vitals and labs are at baseline. Discharge - Sign-Out/Discharge Documenting (check all that apply): Patient Departure - Discharge Patient Received Moderate/Deep Sedation with Procedure: No - Discharge Plan Condition: Good Disposition: HOME Patient Education Materials: Leg Edema (ED) Referrals: Daiana Bautista [Primary Care Provider] - (1-3 days) Additional Instructions: RETURN TO THE EMERGENCY DEPARTMENT FOR CHANGING OR WORSENING SYMPTOMS. - Billing Disposition and Condition Condition: GOOD Disposition: Home - Attestation Statements Document Initiated by Debbie: Yes Documenting Scribe: Zandra Rayo Provider For Whom Debbie is Documenting (Include Credential): Savana Farrell MD Scribe Attestation: Zandra Reyes, scribed for Savana Farrell MD on 11/17/18 at 1814. Scribe Documentation Reviewed: Yes Provider Attestation: The documentation as recorded by the Zandra gifford accurately reflects the service I personally performed and the decisions made by me, Savana Farrell MD Status of Scribe Document: Viewed
[2018-11-17] MEDS ORDERED: fentaNYL* 50 MCG/ML 2 ML VIAL (100 MCG VIAL) IV SLOW PU ONE (13:55)
[2018-11-17] MEDS ORDERED: Furosemide IV* 10 MG/ML 10 ML VIAL (100 MG) IV ONE (14:50)
[2018-11-17 16:09] VITALS: BP 156/72
== END 2018-11-17 16:07 | disposition home or self-care (01) ==
LOC: ED 10:12
DX: R60.0 Localized edema (principal); M71.21 Synovial cyst of popliteal space [Baker], right knee; E07.9 Disorder of thyroid, unspecified; Z79.84 Long term (current) use of oral hypoglycemic drugs; E78.00 Pure hypercholesterolemia, unspecified; E11.22 Type 2 diabetes mellitus with diabetic chronic kidney disease; N18.3 Chronic kidney disease, stage 3 (moderate); I13.0 Hypertensive heart and chronic kidney disease with heart failure and stage 1 through stage 4 chronic kidney disease, or unspecified chronic kidney disease; I50.9 Heart failure, unspecified; J44.9 Chronic obstructive pulmonary disease, unspecified; F32.9 Major depressive disorder, single episode, unspecified; F41.9 Anxiety disorder, unspecified; R00.1 Bradycardia, unspecified
CPT/HCPCS: 36415; 71045; 80053; 83605; 83880; 84484; 85025; 86140; 93005; 93970; 96374; 96375; 99283; J1940; J3010

== ENCOUNTER → 2018-12-24 07:34 | Emergency (ER) | payer MEDICARE, MEDICAID ==
[~2018-12-24 07:34] MED LIST: Acetaminophen TAB* 325 MG PO ONE; Dexamethasone IV* 4 MG/ML 5 ML VIAL (20 MG) IVPB ONE; Lactated Ringers 1000 ML Bag* 1,000 ML IV SCH; cefTRIAXone(*) 1 GM in NS 0.9% 50 ML* 50 ML IVPB ONE
--- NOTE | 2018-12-24 08:45 | ED ---
Upper Extremity Pain - HPI Summary HPI Summary: Pt is a 63 y/o M presenting to the ED with a chief complaint of R hand edema. He states it began to appear edematous 3-4 days ago on 12/20-12/21, then he began experiencing pain that shoots up through his R arm. He believes he hit his hand in his sleep which initially caused the edema. He has hx of HTN, DM, and gout. He initially thought it was gout but the pain through his R arm is abnormal. He reports nausea, and subjective fever. He denies excessive intake of red meat, wine, or cheeses, CP, SOB, dysuria, or burning with urination. He also reports he had his R great toe amputated, he has some associated sores, but the last time it was checked was approximately 2-3 weeks ago. It was amputated because of decreased kidney function d/t HTN complications. - History of Current Complaint Chief Complaint: EDExtremityUpper Stated Complaint: PAIN/SWELLING IN RT ARM PER PT Time Seen by Provider: 12/24/18 07:57 Hx Obtained From: Patient Mechanism Of Injury: Other - believes he hit his hand in the night Onset/Duration: Started Days Ago, Still Present Timing: Constant, Lasting Days Severity Initially: Mild Severity Currently: Moderate Pain Location: Arm - R, Hand - R Character: Sharp - "shooting pain" Aggravating Factor(s): Nothing Alleviating Factor(s): Nothing Associated Signs & Symptoms: Positive: Redness, Fever. Negative: Chest Pain, SOB - Allergies/Home Medications Allergies/Adverse Reactions: Allergies Allergy/AdvReac Type Severity Reaction Status Date / Time lisinopril Allergy Difficulty Verified 12/24/18 07:50 Breathing niacin Allergy Rash Verified 12/24/18 07:50 PMH/Surg Hx/FS Hx/Imm Hx Previously Healthy: No Endocrine/Hematology History: Reports: Hx Diabetes - TYPE 2 / ON ORAL MEDS, Hx Thyroid Disease Cardiovascular History: Reports: Hx Angina, Hx Congestive Heart Failure, Hx Hypercholesterolemia, Hx Hypertension Denies: Hx Coronary Artery Disease, Hx Myocardial Infarction, Hx Pacemaker/ ICD, Hx Valvular Heart Disease, Other Cardiovascular Problems/Disorders Respiratory History: Reports: Hx Chronic Obstructive Pulmonary Disease (COPD), Hx Pneumonia, Other Respiratory Problems/Disorders - uses albuterol inhaler at home Denies: Hx Asthma GI History: Denies: Hx Ulcer History: Reports: Other Problems/Disorders - Chronic kidney disease stage 3 Denies: Hx Kidney Stones Musculoskeletal History: Reports: Hx Back Problems - back pain, Hx Gout, Other Musculoskeletal History - HIP PAIN Denies: Hx Arthritis, Hx Osteoporosis, Hx Scoliosis Sensory History: Reports: Hx Contacts or Glasses Denies: Hx Hearing Aid Opthamlomology History: Reports: Hx Contacts or Glasses Neurological History: Reports: Hx Headaches Denies: Other Neuro Impairments/Disorders Psychiatric History: Reports: Hx Anxiety, Hx Depression, Hx Panic Disorder - Surgical History Surgery Procedure, Year, and Place: POLYPS REMOVED INTESTINE. APPENDECTOMY. KNEE SURGERY 1998 Hx Anesthesia Reactions: No - Immunization History Immunizations Up to Date: Yes Infectious Disease History: No Infectious Disease History: Denies: Hx Clostridium Difficile, Hx Hepatitis, Hx Human Immunodeficiency Virus (HIV), Hx of Known/Suspected MRSA, Hx Shingles, Hx Tuberculosis, Hx Known/ Suspected VRE, Hx Known/Suspected VRSA, History Other Infectious Disease, Traveled Outside the [place] in Last 30 Days - Family History Known Family History: Positive: Cardiac Disease - [place] - grandfather, Hypertension - father, Diabetes - mother, Other - father - asthma, emphysema - Social History Alcohol Use: None Alcohol Amount: quit Hx Substance Use: No Substance Use Type: Reports: None Hx Tobacco Use: No Smoking Status (MU): Never Smoked Tobacco Review of Systems Positive: Fever Negative: Chest Pain Negative: Shortness Of Breath Positive: Nausea Negative: burning, dysuria Positive: Myalgia - R hand, shooting up R arm, Edema All Other Systems Reviewed And Are Negative: Yes Physical Exam - Summary Physical Exam Summary: Constitutional: Well-developed, Well-nourished, Alert. (-) Distressed Skin: Significant amount of chronic skin changes in the LE; erythema not c/w cellulitis, appears more as hyperpigmentation. Skin is peeling diffusely on the pts body d/t sun exposure. HENT: Normocephalic; Atraumatic Eyes: Conjunctiva normal Neck: Musculoskeletal ROM normal neck. (-) JVD, (-) Stridor, (-) Tracheal deviation Cardio: Rhythm regular, rate normal, Heart sounds normal; Intact distal pulses; The pedal pulses are 2+ and symmetric. Radial pulses are 2+ and symmetric. Pulmonary/Chest wall: Effort normal. (-) Respiratory distress, (-) Wheezes, (-) Rales Abd: Soft, (-) tenderness, (-) Distension, (-) Guarding, (-) Rebound Musculoskeletal: Majority of the great toe on the R foot is amputated. The second toe on the R foot has dry skin. There are chronic deformities in each toe on the R foot, skin breakdown between the second and third toes, and onychomycosis of every nail. The L foot has skin breakdown between the first and second toes. There is a fair amount of 2+ pitting edema in the bilateral LE that is relatively symmetric. Pedal pulses bilaterally intact. On the RUE, the R hand is notably edematous. Edema is mostly prominent on the dorsum with erythema present. There is no breakdown of the skin. R hand is asymmetrically warmer in comparison to L hand, there is onychomycosis in almost every digit of the R hand. The web spaces are clean. All compartments of the RUE are supple, ROM is intact, pulses are strong and intact, the skin is warm and well-perfused. Capillary refill is intact. Upper and lower RUE is nonedematous, edema is localized to the wrist and hand only. Neuro: Alert, Oriented x3 Psych: Mood and affect Normal Triage Information Reviewed: Yes Vital Signs On Initial Exam: Initial Vitals Temp Pulse Resp BP Pulse Ox 98.2 F 94 20 154/74 97 12/24/18 07:39 12/24/18 07:39 12/24/18 07:39 12/24/18 07:39 12/24/18 07:39 Vital Signs Reviewed: Yes Diagnostics - Vital Signs Vital Signs Temp Pulse Resp BP Pulse Ox 12/24/18 08:23 85 140/80 97 12/24/18 08:10 92 97 12/24/18 07:54 85 132/72 96 12/24/18 07:53 82 96 12/24/18 07:39 98.2 F 94 20 154/74 97 - Laboratory Result Diagrams: 12/24/18 10:23 12/24/18 10:23 Lab Statement: Any lab studies that have been ordered have been reviewed, and results considered in the medical decision making process. Re-Evaluation - Re-Evaluation 1st re-eval Re-Evaluation Time: 12:35 Change: Improved Comment: I spoke with the patient about discharge plans, and he is stable and agreeable. I informed him of the plans to give him steroids and Keflex, and he is agreeable and willing to take the medications. Course/Dx - Course Course Of Treatment: Pt is a 63 y/o M presenting to the ED with a chief complaint of R hand edema. He states it began to appear edematous 3-4 days ago on 12/20-12/21, then he began experiencing pain that shoots up through his R arm. He reports nausea, and subjective fever. He denies excessive intake of red meat , wine, or cheeses, CP, SOB, dysuria, or burning with urination. On exam, the pt's skin has ignificant amount of chronic skin changes in the LE; erythema not c/w cellulitis, appears more as hyperpigmentation. Skin is peeling diffusely on the pts body d/t sun exposure. In musculoskeletal: Majority of the great toe on the R foot is amputated. The second toe on the R foot has dry skin. There are chronic deformities in each toe on the R foot, skin breakdown between the second and third toes, and onychomycosis of every nail. The L foot has skin breakdown between the first and second toes. There is a fair amount of 2+ pitting edema in the bilateral LE that is relatively symmetric. Pedal pulses bilaterally intact. On the RUE, the R hand is notably edematous. Edema is mostly prominent on the dorsum with erythema present. There is no breakdown of the skin. R hand is asymmetrically warmer in comparison to L hand, there is onychomycosis in almost every digit of the R hand. The web spaces are clean. All compartments of the RUE are supple, ROM is intact, pulses are strong and intact, the skin is warm and well-perfused. Capillary refill is intact. Upper and lower RUE is nonedematous, edema is localized to the wrist and hand only. The pts BUN is up, his CRP is 100, and his uric acid is 12.5. Due to these findings, it seems to be more like cellulitis with gout. Ill give the patient Decadron with some steroids to treat this. Due to the pt being stable, nonsystemic, afebrile, and not tachycardic, the pt will be discharged with dx of acute gouty arthritis with concomitant cellulitis. He will be sent home with prescriptions to alleviate the inflammatory site. He is stable and agreeable with this plan. - Diagnoses Provider Diagnoses: Acute gouty arthritis, Cellulitis Discharge - Sign-Out/Discharge Documenting (check all that apply): Patient Departure Patient Received Moderate/Deep Sedation with Procedure: No - Discharge Plan Condition: Good Disposition: HOME Prescriptions: Cephalexin CAP* [Keflex CAP*] 500 mg PO QID 7 Days #28 cap methylPREDNISolone [Medrol Dosepak 4 MG*] 0 mg PO .SEE TABITHA INSTRUCTION #1 tab predniSONE [Prednisone 20 MG TAB] 20 mg PO BID 3 Days #6 tablet Patient Education Materials: Cellulitis (ED), Gout (ED) Referrals: Daiana Bautista [Primary Care Provider] - Additional Instructions: Please take your prescribed medications as instructed. Please follow up with your primary care physician within the next 2-3 days. Return to the emergency department with any new or worsening symptoms. - Billing Disposition and Condition Condition: GOOD Disposition: Home - Attestation Statements Document Initiated by Debbie: Yes Documenting Scribe: Re Celeste Provider For Whom Debbie is Documenting (Include Credential): Serge Denise MD. Scribe Attestation: Re Reyes scribed for Serge Denise MD. on 12/24/18 at 1711. Scribe Documentation Reviewed: Yes Provider Attestation: The documentation as recorded by the Re gifford accurately reflects the service I personally performed and the decisions made by , Serge Denise MD. Status of Scribe Document: Viewed
[2018-12-24 10:33] LABS: ABS Basophils 0.1 10^3/ul (0-0.2); ABS Lymphocytes 1.1 10^3/ul (1.0-4.8); ABS Neutrophils 7.1 10^3/ul (1.5-7.7); Eosinophil % 0.5 %; Hematocrit 29 % (42-52); Hemoglobin 9.9 g/dL (14.0-18.0); Lymphocyte % 11.6 %; Mean Corpuscular HGB Conc 34 g/dL (31-36); Mean Corpuscular Hemoglobin 26 pg (27-31); Mean Corpuscular Volume 78 fL (80-94); Platelet Count 298 10^3/uL (150-450); Red Blood Count 3.77 10^6 /uL (4.18-5.48); Red Cell Distribution Width 16 % (10-15); White Blood Count 9.3 10^3/uL (3.5-10.8)
[2018-12-24 10:53] LABS: Albumin 3.9 g/dL (3.2-5.2); C Reactive Protein 99.66 mg/L (<8.01); Calcium 9.2 mg/dL (8.6-10.3); EGFR African American 21.5 (>60); EGFR Non-African American 17.8 (>60); Globulin 4.1 g/dL (2-4); Magnesium 2.5 mg/dL (1.9-2.7); Potassium 3.9 mmol/L (3.5-5.0); Total Bilirubin 0.5 mg/dL (0.2-1.0); Uric Acid 12.5 mg/dL (4.4-7.6)
[2018-12-24 13:02] VITALS: BP 168/88
== END | disposition home or self-care (01) ==
LOC: ED 07:34
DX: M10.041 Idiopathic gout, right hand (principal); L03.113 Cellulitis of right upper limb; R50.9 Fever, unspecified; R11.0 Nausea; B35.1 Tinea unguium; E11.9 Type 2 diabetes mellitus without complications; Z79.84 Long term (current) use of oral hypoglycemic drugs; J44.9 Chronic obstructive pulmonary disease, unspecified; E11.22 Type 2 diabetes mellitus with diabetic chronic kidney disease; N18.3 Chronic kidney disease, stage 3 (moderate); Z89.411 Acquired absence of right great toe; Z88.8 Allergy status to other drugs, medicaments and biological substances
CPT/HCPCS: 36415; 80053; 82550; 83605; 83735; 84550; 85025; 86140; 96361; 96365; 96375; 99283; A9270-GY; J0696; J1100

== ENCOUNTER 2019-04-03 22:05 | Emergency (ER) | payer MEDICAID, MEDICARE ==
--- NOTE | 2019-04-04 00:39 | ED ---
Lower Extremity - HPI Summary HPI Summary: The patient is a 63 y/o M presenting to [facility] with a chief complaint of increasing edema in the BLE worsening over the last four days. He reports that he has run out of his medications that he usually takes (unsure of which ones, but states he still has his diuretics and has been taking them). He notes that the pain he is experiencing in his legs has caused him difficulty ambulating. He does use compression socks, which his daughter applies daily. He additionally c/o decreased appetite. Currently, his symptoms are rated 8/10 in severity. PMHx: DM, thyroid disease, angina, CHF, HLD, HTN, COPD, PNA, kidney disease, gout, right foot surgery with great toe amputation. FHx: cardiac disease, HTN, DM. Nonsmoker, no EtOH, no substance use. Medications reviewed. Allergies noted. - History of Current Complaint Chief Complaint: EDExtremityLower Stated Complaint: DIFFICULTY WALKING PER PT Time Seen by Provider: 04/04/19 00:31 Hx Obtained From: Patient Mechanism Of Injury: Other - ran out of medications Onset of Pain: Days Onset/Duration: Days - four Severity Initially: Moderate Severity Currently: Severe Pain Intensity: 8 Pain Scale Used: 0-10 Numeric Timing: Lasting Days Location: Is Discrete @ - BLE Character Of Pain: Aching Associated Signs And Symptoms: Positive: Swelling - BLE, Other - decreased appetite Aggravating Factor(s): Ambulation Alleviating Factor(s): Rest - Allergies/Home Medications Allergies/Adverse Reactions: Allergies Allergy/AdvReac Type Severity Reaction Status Date / Time lisinopril Allergy Difficulty Verified 04/03/19 22:09 Breathing niacin Allergy Rash Verified 04/03/19 22:09 PMH/Surg Hx/FS Hx/Imm Hx Endocrine/Hematology History: Reports: Hx Diabetes - TYPE 2 / ON ORAL MEDS, Hx Thyroid Disease Cardiovascular History: Reports: Hx Angina, Hx Congestive Heart Failure, Hx Hypercholesterolemia, Hx Hypertension Denies: Hx Coronary Artery Disease, Hx Myocardial Infarction, Hx Pacemaker/ ICD, Hx Valvular Heart Disease, Other Cardiovascular Problems/Disorders Respiratory History: Reports: Hx Chronic Obstructive Pulmonary Disease (COPD), Hx Pneumonia, Other Respiratory Problems/Disorders - uses albuterol inhaler at home Denies: Hx Asthma GI History: Denies: Hx Ulcer History: Reports: Other Problems/Disorders - Chronic kidney disease stage 3 Denies: Hx Kidney Stones Musculoskeletal History: Reports: Hx Back Problems - back pain, Hx Gout, Other Musculoskeletal History - HIP PAIN Denies: Hx Arthritis, Hx Osteoporosis, Hx Scoliosis Sensory History: Reports: Hx Contacts or Glasses Denies: Hx Hearing Aid Opthamlomology History: Reports: Hx Contacts or Glasses Neurological History: Reports: Hx Headaches Denies: Other Neuro Impairments/Disorders Psychiatric History: Reports: Hx Anxiety, Hx Depression, Hx Panic Disorder - Surgical History Surgical History: Yes Surgery Procedure, Year, and Place: POLYPS REMOVED INTESTINE. APPENDECTOMY. KNEE SURGERY 1998. right big toe amputation Hx Anesthesia Reactions: No Infectious Disease History: No Infectious Disease History: Denies: Hx Clostridium Difficile, Hx Hepatitis, Hx Human Immunodeficiency Virus (HIV), Hx of Known/Suspected MRSA, Hx Shingles, Hx Tuberculosis, Hx Known/ Suspected VRE, Hx Known/Suspected VRSA, History Other Infectious Disease, Traveled Outside the in Last 30 Days - Family History Known Family History: Positive: Cardiac Disease - [place] - grandfather, Hypertension - father, Diabetes - mother, Other - father - asthma, emphysema - Social History Alcohol Use: None Alcohol Amount: quit Hx Substance Use: No Substance Use Type: Reports: None Hx Tobacco Use: No Smoking Status (MU): Never Smoked Tobacco Review of Systems Positive: Other - Negative: decreased appetite. Positive: Edema - BLE, Other - difficulty ambulating secondary to pain in BLE All Other Systems Reviewed And Are Negative: Yes Physical Exam - Summary Physical Exam Summary: Appearance: Well-appearing, Well-nourished, lying in bed comfortably Skin: Area of cellulitis on the left anterior mid-leg without fluctuance or drainage which seems to be what is bothering him, Warm, dry Eyes: sclera anicteric, no conjunctival pallor ENT: mucous membranes moist, pharynx appears normal Neck: Supple, nontender Respiratory: Clear to auscultation, no signs of respiratory distress Cardiovascular: Normal S1, S2. No murmurs. Normal distal pulses in tibial and radial bilaterally. Abdomen: Soft, nontender, normal active bowel sounds present Musculoskeletal: Normal, Strength/ROM Intact Neurological: A&Ox3, awake and alert, mentation is normal, speech is fluent and appropriate Psychiatric: affect is normal, does not appear anxious or depressed Triage Information Reviewed: Yes Vital Signs On Initial Exam: Initial Vitals Temp Pulse Resp BP Pulse Ox 98.6 F 88 16 166/87 97 04/03/19 22:08 04/03/19 22:08 04/03/19 22:08 04/03/19 22:08 04/03/19 22:08 Vital Signs Reviewed: Yes Diagnostics - Vital Signs Vital Signs Temp Pulse Resp BP Pulse Ox 04/03/19 22:08 98.6 F 88 16 166/87 97 - Laboratory Lab Statement: Any lab studies that have been ordered have been reviewed, and results considered in the medical decision making process. Lower Extremity Course/Dx - Course Course Of Treatment: Pt is a 63 y/o M with cc of increasing BLE edema over the last four days after not having medications. Upon physical exam, the pt exhibits an area of cellulitis on the left anterior mid-leg without any fluctuance or drainage that appears to be the region of which he is experiencing pain from. He is administered Keflex in the ED to start the course of treatment for dx of cellulitis. He understands and agrees with plan for discharge and need to return to the ED for any new or worsening symptoms. - Diagnoses Provider Diagnoses: Cellulitis Discharge ED - Sign-Out/Discharge Documenting (check all that apply): Patient Departure - Patient will be discharged home. Patient Received Moderate/Deep Sedation with Procedure: No - Discharge Plan Condition: Stable Disposition: HOME Prescriptions: Cephalexin CAP* [Keflex CAP*] 500 mg PO QID 7 Days #28 cap Patient Education Materials: Cellulitis (ED) Referrals: Daiana Bautista [Primary Care Provider] - 3 Days (if not improving) - Billing Disposition and Condition Condition: STABLE Disposition: Home - Attestation Statements Document Initiated by Debbie: Yes Documenting Scribe: Dian Foley Provider For Whom Debbie is Documenting (Include Credential): MD Karlo Wellsiburiel Attestation: Dian Reyes scribed for Dr. aMndo Anderson MD on 04/05/19 at 045. Scribe Documentation Reviewed: Yes Provider Attestation: The documentation as recorded by the Dian gifford accurately reflects the service I personally performed and the decisions made by me, Dr. Mando Anderson MD Status of Scribe Document: Viewed
[2019-04-04] MEDS ORDERED: Cephalexin CAP* 500 MG PO ONE (00:43)
[2019-04-04 01:31] VITALS: BP 168/89
== END 2019-04-04 01:31 | disposition home or self-care (01) ==
LOC: ED 22:05
DX: L03.116 Cellulitis of left lower limb (principal); R60.0 Localized edema; I13.0 Hypertensive heart and chronic kidney disease with heart failure and stage 1 through stage 4 chronic kidney disease, or unspecified chronic kidney disease; I50.9 Heart failure, unspecified; N18.3 Chronic kidney disease, stage 3 (moderate); E11.22 Type 2 diabetes mellitus with diabetic chronic kidney disease; Z79.84 Long term (current) use of oral hypoglycemic drugs; J44.9 Chronic obstructive pulmonary disease, unspecified; Z89.411 Acquired absence of right great toe; Z88.8 Allergy status to other drugs, medicaments and biological substances; Z82.49 Family history of ischemic heart disease and other diseases of the circulatory system; Z83.3 Family history of diabetes mellitus; Z82.5 Family history of asthma and other chronic lower respiratory diseases
CPT/HCPCS: 99282; A9270-GY

== ENCOUNTER 2019-06-01 09:19 | Emergency (ER) | payer MEDICARE ==
--- NOTE | 2019-06-01 09:50 | ED ---
Complex/Multi-Sys Presentation - HPI Summary HPI Summary: Patient is a 63-year-old male who presents emergency department for complaints of worsening shortness of breath and wound and redness to his left lower leg. Patient has a history of diabetes and CHF. Currently taking lasix. Patient notes he has felt more short of breath over the last few days. Denies cough, fever, chest pain. Patient no wrist a wound to his left lower leg last week that has developed redness and warmth. Patient denies fever or chills. Symptoms are moderate in severity. No current modifying factors. - History Of Current Complaint Chief Complaint: EDExtremityLower Time Seen by Provider: 06/01/19 09:32 Hx Obtained From: Patient - Allergies/Home Medications Allergies/Adverse Reactions: Allergies Allergy/AdvReac Type Severity Reaction Status Date / Time lisinopril Allergy Difficulty Verified 06/01/19 09:26 Breathing niacin Allergy Rash Verified 06/01/19 09:26 Home Medications: Home Medications Ferrous Sulfate TAB* 325 mg PO DAILY 06/01/19 [History Confirmed 06/01/19] Losartan TAB* [Cozaar TAB*] 25 mg PO DAILY 06/01/19 [History Confirmed 06/01/19] Metolazone TAB* [Zaroxolyn TAB*] 2.5 mg PO DAILY 06/01/19 [History Confirmed ] Metoprolol Succinate XL TAB* [Toprol XL TAB*] 25 mg PO DAILY 06/01/19 [History Confirmed 06/01/19] Metoprolol Succinate XL TAB* [Toprol XL TAB*] 100 mg PO DAILY 06/01/19 [History Confirmed 06/01/19] PMH/Surg Hx/FS Hx/Imm Hx Previously Healthy: Yes Endocrine/Hematology History: Reports: Hx Diabetes - TYPE 2 / ON ORAL MEDS, Hx Thyroid Disease Cardiovascular History: Reports: Hx Angina, Hx Congestive Heart Failure, Hx Hypercholesterolemia, Hx Hypertension Denies: Hx Coronary Artery Disease, Hx Myocardial Infarction, Hx Pacemaker/ ICD, Hx Valvular Heart Disease, Other Cardiovascular Problems/Disorders Respiratory History: Reports: Hx Chronic Obstructive Pulmonary Disease (COPD), Hx Pneumonia, Other Respiratory Problems/Disorders - uses albuterol inhaler at home Denies: Hx Asthma GI History: Denies: Hx Ulcer History: Reports: Other Problems/Disorders - Chronic kidney disease stage 3 Denies: Hx Kidney Stones Musculoskeletal History: Reports: Hx Back Problems - back pain, Hx Gout, Other Musculoskeletal History - HIP PAIN Denies: Hx Arthritis, Hx Osteoporosis, Hx Scoliosis Sensory History: Reports: Hx Contacts or Glasses Denies: Hx Hearing Aid Opthamlomology History: Reports: Hx Contacts or Glasses Neurological History: Reports: Hx Headaches Denies: Other Neuro Impairments/Disorders Psychiatric History: Reports: Hx Anxiety, Hx Depression, Hx Panic Disorder - Surgical History Surgery Procedure, Year, and Place: POLYPS REMOVED INTESTINE. APPENDECTOMY. KNEE SURGERY 1998. right big toe amputation Hx Anesthesia Reactions: No Infectious Disease History: No Infectious Disease History: Denies: Hx Clostridium Difficile, Hx Hepatitis, Hx Human Immunodeficiency Virus (HIV), Hx of Known/Suspected MRSA, Hx Shingles, Hx Tuberculosis, Hx Known/ Suspected VRE, Hx Known/Suspected VRSA, History Other Infectious Disease, Traveled Outside the in Last 30 Days - Family History Known Family History: Positive: Cardiac Disease - [place] - grandfather, Hypertension - father, Diabetes - mother, Other - father - asthma, emphysema - Social History Occupation: Retired Lives: With Family Alcohol Use: None Alcohol Amount: quit Hx Substance Use: No Substance Use Type: Reports: None Hx Tobacco Use: No Smoking Status (MU): Never Smoked Tobacco Review of Systems Constitutional: Negative Negative: Fever Cardiovascular: Negative Negative: Palpitations, Chest Pain Positive: Shortness Of Breath. Negative: Cough Gastrointestinal: Negative Negative: Vomiting Positive: Other - leg swelling. Positive: Other - Wound and redness to left lower garg. All Other Systems Reviewed And Are Negative: Yes Physical Exam Triage Information Reviewed: Yes Vital Signs On Initial Exam: Initial Vitals Temp Pulse Resp BP Pulse Ox 97.4 F 53 20 162/80 98 06/01/19 09:21 06/01/19 09:21 06/01/19 09:21 06/01/19 09:21 06/01/19 09:21 Vital Signs Reviewed: Yes Appearance: Positive: Well-Appearing - Pt. sitting on bed in NAD. Pleasant. Skin: Positive: Warm, Dry Head/Face: Positive: Normal Head/Face Inspection Eyes: Positive: Normal, EOMI Neck: Positive: Supple Respiratory/Lung Sounds: Positive: Other - Mild crackles in bases. Cardiovascular: Positive: Normal, RRR Musculoskeletal: Positive: Other - +1 pitting bilaterally. To right anterior lower leg there is a superficial abrasion with erythema and warmth spreading. No calf tenderness. Neurological: Positive: Normal, CN Intact II-III Psychiatric: Positive: Affect/Mood Appropriate Procedures - Sedation Patient Received Moderate/Deep Sedation with Procedure: No Diagnostics - Vital Signs Vital Signs Temp Pulse Resp BP Pulse Ox 06/01/19 09:21 97.4 F 53 20 162/80 98 - Laboratory Result Diagrams: 06/01/19 10:36 06/01/19 10:36 Lab Statement: Any lab studies that have been ordered have been reviewed, and results considered in the medical decision making process. Complex Multi-Symp Course/Dx Course Of Treatment: Patient with wound and mild cellulitis to left lower leg. He complains of increased shortness of breath and has mild crackles on exam. Vital signs are stable with a appropriate oxygen saturation on room air. Basic labs and chest x-ray ordered. EKG done at 1004 shows a sinus bracycardia of 55bpm, normal axis, no ST elevation or depression, similar to prior tracing. CXR shows mild pulmonary interstitial fluid per radiology. CBC shows normal WBC and chronic anemia, minimally elevated CRP, chronic renal insufficiency, BNP elevated at 447. Pt. given 60mg IV lasix and SOB improving. Pt. comfortable with dc. Will start on keflex for cellulitis. To call pcp tomorrow for f.u in 2- 3 days. Will return to er if sxs change or worsen. - Diagnoses Provider Diagnoses: CHF (congestive heart failure), Cellulitis Discharge ED - Sign-Out/Discharge Documenting (check all that apply): Patient Departure - Discharge Plan Condition: Improved Disposition: HOME Prescriptions: Cephalexin CAP* [Keflex CAP*] 500 mg PO QID #40 cap Patient Education Materials: Heart Failure (ED), Cellulitis (ED) Referrals: Daiana Bautista [Primary Care Provider] - Additional Instructions: Call your PCP tomorrow for a recheck in 2-3 days Take antibiotic as directed Elevate legs and apply warm compresses Decrease salt and fluid intake Return to ER if symptoms change or worsen - Billing Disposition and Condition Condition: IMPROVED Disposition: Home - Attestation Statements Provider Attestation: I was available for consult. This patient was seen by the [facility]. The patient was not presented to, seen by, or examined by me. Michele Vaughan MD
[2019-06-01 10:43] LABS: ABS Basophils 0.1 10^3/ul (0-0.2); ABS Eosinophils 0.2 10^3/ul (0-0.6); ABS Lymphocytes 1.5 10^3/ul (1.0-4.8); ABS Monocytes 0.9 10^3/ul (0-0.8); ABS Neutrophils 4.7 10^3/ul (1.5-7.7); Eosinophil % 2.9 %; Hematocrit 30 % (42-52); Hemoglobin 10.2 g/dL (14.0-18.0); Lymphocyte % 20.5 %; Mean Corpuscular HGB Conc 34 g/dL (31-36); Mean Corpuscular Hemoglobin 27 pg (27-31); Mean Corpuscular Volume 80 fL (80-94); Mean Platelet Volume 7.5 fL (7.4-10.4); Platelet Count 253 10^3/uL (150-450); Red Cell Distribution Width 16 % (10-15); White Blood Count 7.4 10^3/uL (3.5-10.8)
[2019-06-01 11:39] LABS: Albumin 3.9 g/dL (3.2-5.2); Albumin/Globulin Ratio 1.1 (1-3); BUN/Creatinine Ratio 17.1 (8-20); C Reactive Protein 10.25 mg/L (<8.01); Calcium 8.8 mg/dL (8.6-10.3); EGFR African American 23.8 (>60); EGFR Non-African American 19.7 (>60); Globulin 3.7 g/dL (2-4); Potassium 4.7 mmol/L (3.5-5.0); Total Bilirubin 0.4 mg/dL (0.2-1.0); Total Protein 7.6 g/dL (6.4-8.9)
[2019-06-01] MEDS ORDERED: Furosemide IV* 10 MG/ML 10 ML VIAL (100 MG) IV ONE (11:45)
[2019-06-01 13:54] VITALS: BP 180/96
== END 2019-06-01 13:52 | disposition home or self-care (01) ==
LOC: ED 09:19
DX: I11.0 Hypertensive heart disease with heart failure (principal); I50.9 Heart failure, unspecified; L03.116 Cellulitis of left lower limb; Z79.84 Long term (current) use of oral hypoglycemic drugs; Z79.899 Other long term (current) drug therapy; E11.9 Type 2 diabetes mellitus without complications; E07.9 Disorder of thyroid, unspecified; E78.00 Pure hypercholesterolemia, unspecified; J44.9 Chronic obstructive pulmonary disease, unspecified; F41.9 Anxiety disorder, unspecified; F32.9 Major depressive disorder, single episode, unspecified; Z90.89 Acquired absence of other organs; Z88.8 Allergy status to other drugs, medicaments and biological substances
CPT/HCPCS: 36415; 71045; 80053; 83880; 85025; 86140; 93005; 96374; 99282; J1940

== ENCOUNTER 2019-06-26 13:42 | Emergency (ER) | payer MEDICARE ==
[2019-06-26 14:35] LABS: ABS Basophils 0.1 10^3/ul (0-0.2); ABS Eosinophils 0.3 10^3/ul (0-0.6); ABS Lymphocytes 1.2 10^3/ul (1.0-4.8); ABS Monocytes 0.8 10^3/ul (0-0.8); ABS Neutrophils 4.8 10^3/ul (1.5-7.7); Eosinophil % 3.7 %; Hematocrit 30 % (42-52); Hemoglobin 10.1 g/dL (14.0-18.0); Lymphocyte % 16.4 %; Mean Corpuscular HGB Conc 34 g/dL (31-36); Mean Corpuscular Hemoglobin 27 pg (27-31); Mean Corpuscular Volume 80 fL (80-94); Mean Platelet Volume 7.8 fL (7.4-10.4); Nucleated Red Blood Cells % 0.2; Platelet Count 250 10^3/uL (150-450); Red Cell Distribution Width 16 % (10-15); White Blood Count 7.1 10^3/uL (3.5-10.8)
[2019-06-26 14:50] LABS: Albumin 3.8 g/dL (3.2-5.2); BUN/Creatinine Ratio 18.2 (8-20); C Reactive Protein 59.35 mg/L (<8.01); Calcium 8.4 mg/dL (8.6-10.3); EGFR African American 20.1 (>60); EGFR Non-African American 16.6 (>60); Globulin 3.9 g/dL (2-4); Potassium 4.4 mmol/L (3.5-5.0); Total Bilirubin 0.3 mg/dL (0.2-1.0); Total Protein 7.7 g/dL (6.4-8.9)
--- NOTE | 2019-06-26 16:12 | ED ---
Respiratory - HPI Summary HPI Summary: This patient is a 63 year old male with a Hx of CHF presenting to [facility] with a chief complaint of SOB. He states he feels pulmonary chest pain on inspiration and expiration. He denies fever, N/V/D. He took Lasix to some relief for his symptoms. He had a MRSA infection one year ago. - History of Current Complaint Chief Complaint: EDShortnessOfBreath Stated Complaint: SHORT OF BREATH Time Seen by Provider: 06/26/19 16:03 Hx Obtained From: Patient Onset/Duration: Lasting Hours Pain Intensity: 3 Character: Dyspnea at Rest - Allergy/Home Medications Allergies/Adverse Reactions: Allergies Allergy/AdvReac Type Severity Reaction Status Date / Time lisinopril Allergy Difficulty Verified 06/26/19 13:47 Breathing niacin Allergy Rash Verified 06/26/19 13:47 PMH/Surg Hx/FS Hx/Imm Hx Endocrine/Hematology History: Reports: Hx Diabetes - TYPE 2 / ON ORAL MEDS, Hx Thyroid Disease Cardiovascular History: Reports: Hx Angina, Hx Congestive Heart Failure, Hx Hypercholesterolemia, Hx Hypertension Denies: Hx Coronary Artery Disease, Hx Myocardial Infarction, Hx Pacemaker/ ICD, Hx Valvular Heart Disease, Other Cardiovascular Problems/Disorders Respiratory History: Reports: Hx Chronic Obstructive Pulmonary Disease (COPD), Hx Pneumonia, Other Respiratory Problems/Disorders - uses albuterol inhaler at home Denies: Hx Asthma GI History: Denies: Hx Ulcer History: Reports: Other Problems/Disorders - Chronic kidney disease stage 3 Denies: Hx Kidney Stones Musculoskeletal History: Reports: Hx Back Problems - back pain, Hx Gout, Other Musculoskeletal History - HIP PAIN Denies: Hx Arthritis, Hx Osteoporosis, Hx Scoliosis Sensory History: Reports: Hx Contacts or Glasses Denies: Hx Hearing Aid Opthamlomology History: Reports: Hx Contacts or Glasses Neurological History: Reports: Hx Headaches Denies: Other Neuro Impairments/Disorders Psychiatric History: Reports: Hx Anxiety, Hx Depression, Hx Panic Disorder - Surgical History Surgery Procedure, Year, and Place: POLYPS REMOVED INTESTINE. APPENDECTOMY. KNEE SURGERY 1998. right big toe amputation Hx Anesthesia Reactions: No Infectious Disease History: No Infectious Disease History: Denies: Hx Clostridium Difficile, Hx Hepatitis, Hx Human Immunodeficiency Virus (HIV), Hx of Known/Suspected MRSA, Hx Shingles, Hx Tuberculosis, Hx Known/ Suspected VRE, Hx Known/Suspected VRSA, History Other Infectious Disease, Traveled Outside the [place] in Last 30 Days - Family History Known Family History: Positive: Cardiac Disease - [place] - grandfather, Hypertension - father, Diabetes - mother, Other - father - asthma, emphysema - Social History Alcohol Use: None Alcohol Amount: quit Hx Substance Use: No Substance Use Type: Reports: None Hx Tobacco Use: No Smoking Status (MU): Never Smoked Tobacco Review of Systems Negative: Fever Positive: Chest Pain - Pulmonary Positive: Shortness Of Breath Negative: Vomiting, Diarrhea, Nausea All Other Systems Reviewed And Are Negative: Yes Physical Exam - Summary Physical Exam Summary: VITAL SIGNS: Reviewed. GENERAL: Patient is a well-developed and nourished MALE who is lying comfortable in the stretcher. Patient is not in any acute respiratory distress. HEAD AND FACE: No signs of trauma. No ecchymosis, hematomas or skull depressions. No sinus tenderness. EYES: PERRLA, EOMI x 2, No injected conjunctiva, no nystagmus. EARS: Hearing grossly intact. Ear canals and tympanic membranes are within normal limits. MOUTH: Oropharynx within normal limits. NECK: Supple, trachea is midline, no adenopathy, no JVD, no carotid bruit, no c- spine tenderness, neck with full ROM. CHEST: Symmetric, no tenderness at palpation. LUNGS: Crackles in bases of the lungs bilaterally, decreased breath sounds. CVS: Regular rate and rhythm, S1 and S2 present, no murmurs or gallops appreciated. ABDOMEN: Soft, non-tender. No signs of distention. No rebound, no guarding, and no masses palpated. Bowel sounds are normal. EXTREMITIES: FROM in all major joints, no edema, no cyanosis or clubbing. Right big toe amputation. NEURO: Alert and oriented x 3. No acute neurological deficits. Speech is normal and follows commands. SKIN: Dry and warm. Triage Information Reviewed: Yes Vital Signs On Initial Exam: Initial Vitals Temp Pulse Resp BP Pulse Ox 98.7 F 59 16 178/82 98 06/26/19 13:43 06/26/19 13:43 06/26/19 13:43 06/26/19 13:43 06/26/19 13:43 Vital Signs Reviewed: Yes Procedures - Sedation Patient Received Moderate/Deep Sedation with Procedure: No Diagnostics - Vital Signs Vital Signs Temp Pulse Resp BP Pulse Ox 06/26/19 13:43 98.7 F 59 16 178/82 98 - Laboratory Lab Results: Lab Results 06/26/19 06/26/19 06/26/19 Range/Units 14:23 14:23 14:23 WBC 7.1 (3.5-10.8) 10^3/uL RBC 3.80 L (4.18-5.48) 10^6 /uL Hgb 10.1 L (14.0-18.0) g/dL Hct 30 L (42-52) % MCV 80 (80-94) fL MCH 27 (27-31) pg MCHC 34 (31-36) g/dL RDW 16 H (10-15) % Plt Count 250 (150-450) 10^3/uL MPV 7.8 (7.4-10.4) fL Neut % (Auto) 67.8 % Lymph % (Auto) 16.4 % Anson % (Auto) 10.6 % Eos % (Auto) 3.7 % Baso % (Auto) 1.5 % Absolute Neuts (auto) 4.8 (1.5-7.7) 10^3/ul Absolute Lymphs (auto) 1.2 (1.0-4.8) 10^3/ul Absolute Monos (auto) 0.8 (0-0.8) 10^3/ul Absolute Eos (auto) 0.3 (0-0.6) 10^3/ul Absolute Basos (auto) 0.1 (0-0.2) 10^3/ul Absolute Nucleated RBC 0.0 10^3/ul Nucleated RBC % 0.2 Sodium 134 L (135-145) mmol/L Potassium 4.4 (3.5-5.0) mmol/L Chloride 104 (101-111) mmol/L Carbon Dioxide 21 L (22-32) mmol/L Anion Gap 9 (2-11) mmol/L BUN 68 H (6-24) mg/dL Creatinine 3.73 H (0.67-1.17) mg/dL Est GFR ( Amer) 20.1 (>60) Est GFR (Non-Af Amer) 16.6 (>60) BUN/Creatinine Ratio 18.2 (8-20) Glucose 105 H (70-100) mg/dL Lactic Acid 0.7 (0.5-2.0) mmol/L Calcium 8.4 L (8.6-10.3) mg/dL Total Bilirubin 0.30 (0.2-1.0) mg/dL AST 10 L (13-39) U/L ALT 13 (7-52) U/L Alkaline Phosphatase 50 (34-104) U/L Troponin I 0.00 (<0.03) ng/mL C-Reactive Protein 59.35 H (<8.01) mg/L B-Natriuretic Peptide (<=100) pg/mL Total Protein 7.7 (6.4-8.9) g/dL Albumin 3.8 (3.2-5.2) g/dL Globulin 3.9 (2-4) g/dL Albumin/Globulin Ratio 1.0 (1-3) 06/26/19 Range/Units 14:23 WBC (3.5-10.8) 10^3/uL RBC (4.18-5.48) 10^6 /uL Hgb (14.0-18.0) g/dL Hct (42-52) % MCV (80-94) fL MCH (27-31) pg MCHC (31-36) g/dL RDW (10-15) % Plt Count (150-450) 10^3/uL MPV (7.4-10.4) fL Neut % (Auto) % Lymph % (Auto) % Anson % (Auto) % Eos % (Auto) % Baso % (Auto) % Absolute Neuts (auto) (1.5-7.7) 10^3/ul Absolute Lymphs (auto) (1.0-4.8) 10^3/ul Absolute Monos (auto) (0-0.8) 10^3/ul Absolute Eos (auto) (0-0.6) 10^3/ul Absolute Basos (auto) (0-0.2) 10^3/ul Absolute Nucleated RBC 10^3/ul Nucleated RBC % Sodium (135-145) mmol/L Potassium (3.5-5.0) mmol/L Chloride (101-111) mmol/L Carbon Dioxide (22-32) mmol/L Anion Gap (2-11) mmol/L BUN (6-24) mg/dL Creatinine (0.67-1.17) mg/dL Est GFR ( Amer) (>60) Est GFR (Non-Af Amer) (>60) BUN/Creatinine Ratio (8-20) Glucose (70-100) mg/dL Lactic Acid (0.5-2.0) mmol/L Calcium (8.6-10.3) mg/dL Total Bilirubin (0.2-1.0) mg/dL AST (13-39) U/L ALT (7-52) U/L Alkaline Phosphatase (34-104) U/L Troponin I (<0.03) ng/mL C-Reactive Protein (<8.01) mg/L B-Natriuretic Peptide 230 H (<=100) pg/mL Total Protein (6.4-8.9) g/dL Albumin (3.2-5.2) g/dL Globulin (2-4) g/dL Albumin/Globulin Ratio (1-3) Result Diagrams: 06/26/19 14:23 06/26/19 14:23 Lab Statement: Any lab studies that have been ordered have been reviewed, and results considered in the medical decision making process. - Radiology CXR Radiology Interpretation Completed By: Radiologist Summary of Radiographic Findings: No radiographic evidence of acute cardiopulmonary disease. ED Physician has reviewed this report. - EKG 1513 Cardiac Rate: Bradycardia - 53 BPM EKG Rhythm: Sinus Bradycardia Summary of EKG Findings: No ST elevations. ED Physician has reviewed and interpreted this report. Disposition - Course Assessment/Plan: This patient is a 63 year old male with a Hx of CHF presenting to [facility] with a chief complaint of SOB. He states he feels pulmonary chest pain on inspiration and expiration. He denies fever, N/V/D. He took Lasix to some relief for his symptoms. He had a MRSA infection one year ago. Blood work without any significant abnormality except for slight anemia, sodium 138, BUN is 68, creatinine is 3.73 which is his baseline. Glucose 105, CRP of 59.3, BNP is 2:30. Chest x-ray impression: No radiographic evidence for acute cardiopulmonary disease. However the patient reports he is having this productive cough that the bronchitis. But because of his multiple comorbidities I would place the patient in 5 the course of azithromycin. I discussed all the findings and test results with the patient. Patient was instructed to return to the emergency room immediately if any of the symptoms return or worsen . Plan of care was discussed with the patient and understands and agrees. All questions were answered at patient satisfaction. There were no further complaints or concerns. Lung exam before discharge: CTA B/L. Good air exchange. No wheezing or crackles heard. CVS: S1 and S2 present. No murmurs appreciated. Patient is alert and oriented x 3. Patient is hemodynamically stable. Patient will be discharged home with follow up reimbursement analyst in the next 2-3 days - Diagnoses Provider Diagnoses: Bronchitis Discharge ED - Sign-Out/Discharge Documenting (check all that apply): Patient Departure - Discharge - Discharge Plan Condition: Stable Disposition: HOME Prescriptions: Azithromycin TAB* [Zithromax TAB (Z-TABITHA) 250 mg #6 tabs] 250 mg PO DAILY #4 tab Patient Education Materials: Acute Bronchitis (ED) Referrals: Daiana Bautista [Primary Care Provider] - Additional Instructions: Return to ED with new or worsening symptoms. - Billing Disposition and Condition Condition: STABLE Disposition: Home - Attestation Statements Document Initiated by Debbie: Yes Documenting Scribe: Bhaskar Jones Provider For Whom Debbie is Documenting (Include Credential): Chencho Armstrong MD Scribe Attestation: Bhaskar Reyes scribed for Chencho Armstrong MD on 06/26/19 at 1834. Scribe Documentation Reviewed: Yes Provider Attestation: The documentation as recorded by the Bhaskar gifford accurately reflects the service I personally performed and the decisions made by , Chencho Armstrong MD Status of Scribe Document: Viewed
[2019-06-26] MEDS ORDERED: cefTRIAXone(*) 1 GM in NS 0.9% 50 ML* 50 ML IVPB ONE (16:13)
[2019-06-26] MEDS ORDERED: Azithromycin TAB* 250 MG PO ONE (18:15)
[2019-06-26 18:33] LABS: Urine Appearance Clear; Urine Bilirubin Negative (Negative); Urine Blood 1+ (Negative); Urine Color Yellow; Urine Glucose Negative (Negative); Urine Ketones Negative (Negative); Urine Nitrite Negative (Negative); Urine Protein 2+(100 mg/dL) (Negative); Urine Specific Gravity 1.011 (1.010-1.030); Urine Urobilinogen Negative (Negative)
[2019-06-26 18:36] LABS: Urine Bacteria Absent (Absent); Urine Red Blood Cell Trace(0-2/hpf) (Absent); Urine White Blood Cell Absent (Absent)
[2019-06-26 18:39] VITALS: BP 167/83
== END 2019-06-26 18:30 | disposition home or self-care (01) ==
LOC: ED 13:42
DX: J40 Bronchitis, not specified as acute or chronic (principal); E11.22 Type 2 diabetes mellitus with diabetic chronic kidney disease; I13.0 Hypertensive heart and chronic kidney disease with heart failure and stage 1 through stage 4 chronic kidney disease, or unspecified chronic kidney disease; N18.3 Chronic kidney disease, stage 3 (moderate); E07.9 Disorder of thyroid, unspecified; E78.00 Pure hypercholesterolemia, unspecified; I50.9 Heart failure, unspecified; J44.9 Chronic obstructive pulmonary disease, unspecified; F41.9 Anxiety disorder, unspecified; F32.9 Major depressive disorder, single episode, unspecified; Z79.84 Long term (current) use of oral hypoglycemic drugs; Z79.899 Other long term (current) drug therapy; Z88.8 Allergy status to other drugs, medicaments and biological substances
CPT/HCPCS: 36415; 71046; 80053; 81003; 81015; 83605; 83880; 84484; 85025; 86140; 87641; 93005; 96365; 96366; 99283; A9270-GY; J0696

== ENCOUNTER 2019-07-17 15:57 | Inpatient (IN) | payer MEDICARE ==
[2019-07-17] MEDS ORDERED: NS 0.9% 1000 ML** 1,000 ML IV ONE (16:22)
--- NOTE | 2019-07-17 16:22 | ED ---
Neurological HPI - HPI Summary HPI Summary: This pt is a 63 y/o male presenting to [facility] c/o an episode of slurred speech, difficulty walking, unresponsive for about 3 minutes today, now resolved. Family member reports patient was in an event and having a conversation at around 1530 today when patient began to slur his words, "went blank," and was unable to walk. Per family member, pt couldn't walk and they took him to their house. Family member states this episode lasted about 3 minutes and then resolved. Per family member, at baseline pt has always struggled to walk as patient shuffles and does not walk secondary to DM and neuropathy. Pt reports feeling lightheaded, nauseous, and "pain all over." Denies weakness, visual changes, abd pain, diarrhea, constipation, fever. Per family members, blood glucose at home MANAGER EDUCATION was 125. Per family member pt is back to baseline but does state patient is a little more weak when ambulating. Family believes there was a rapid change in pt and believe pt had a stroke but patient was never diagnosed with a stroke. PMHx: HTN, DM, Lyme disease, CHF, anemia, thyroid disease. Denies hx of [place]. Pt denies recent medication changes. Denies tobacco use. Allergies to Lisinopril and Niacin. Medications reviewed. Allergies noted. - History of Current Complaint Chief Complaint: EDNeurologicalDeficit Stated Complaint: TROUBLE TALKING/WALKING PER NEPHEW Time Seen by Provider: 07/17/19 16:06 Hx Obtained From: Patient, Family/Internal Control Analyst Onset/Duration: Sudden Onset, Resolved Timing: Sudden Onset Onset Severity: Moderate Current Severity: None Neurological Deficit Location: Generalized Pain Intensity: 0 - denies pain Pain Scale Used: 0-10 Numeric Character: Responsiveness Aggravating: Nothing Alleviating: Nothing Associated Signs and Symptoms: Positive: Lightheadness, Nausea/Vomiting - Nausea. Negative: Visual Changes, Weakness, Fever, Diarrhea - Additional Pertinent History Primary Care Physician: PATTI - Allergy/Home Medications Allergies/Adverse Reactions: Allergies Allergy/AdvReac Type Severity Reaction Status Date / Time lisinopril Allergy Difficulty Verified 06/26/19 13:47 Breathing niacin Allergy Rash Verified 06/26/19 13:47 PMH/Surg Hx/FS Hx/Imm Hx Endocrine/Hematology History: Reports: Hx Diabetes - TYPE 2 / ON ORAL MEDS, Hx Thyroid Disease Cardiovascular History: Reports: Hx Angina, Hx Congestive Heart Failure, Hx Hypercholesterolemia, Hx Hypertension Denies: Hx Coronary Artery Disease, Hx Myocardial Infarction, Hx Pacemaker/ ICD, Hx Valvular Heart Disease, Other Cardiovascular Problems/Disorders Respiratory History: Reports: Hx Chronic Obstructive Pulmonary Disease (COPD), Hx Pneumonia, Other Respiratory Problems/Disorders - uses albuterol inhaler at home Denies: Hx Asthma GI History: Denies: Hx Ulcer History: Reports: Other Problems/Disorders - Chronic kidney disease stage 3 Denies: Hx Kidney Stones Musculoskeletal History: Reports: Hx Back Problems - back pain, Hx Gout, Other Musculoskeletal History - HIP PAIN Denies: Hx Arthritis, Hx Osteoporosis, Hx Scoliosis Sensory History: Reports: Hx Contacts or Glasses Denies: Hx Hearing Aid Opthamlomology History: Reports: Hx Contacts or Glasses Neurological History: Reports: Hx Headaches Denies: Other Neuro Impairments/Disorders Psychiatric History: Reports: Hx Anxiety, Hx Depression, Hx Panic Disorder - Surgical History Surgery Procedure, Year, and Place: POLYPS REMOVED INTESTINE. APPENDECTOMY. KNEE SURGERY 1998. right big toe amputation Hx Anesthesia Reactions: No Infectious Disease History: Yes Infectious Disease History: Denies: Hx Clostridium Difficile, Hx Hepatitis, Hx Human Immunodeficiency Virus (HIV), Hx of Known/Suspected MRSA, Hx Shingles, Hx Tuberculosis, Hx Known/ Suspected VRE, Hx Known/Suspected VRSA, History Other Infectious Disease, Traveled Outside the [place] in Last 30 Days - Family History Known Family History: Positive: Cardiac Disease - [place] - grandfather, Hypertension - father, Diabetes - mother, Other - father - asthma, emphysema - Social History Alcohol Use: None Alcohol Amount: quit Hx Substance Use: No Substance Use Type: Reports: None Hx Tobacco Use: No Smoking Status (MU): Never Smoked Tobacco Review of Systems Negative: Fever, Chills Negative: Other - NEGATIVE: visual changes Positive: Nausea. Negative: Abdominal Pain, Diarrhea, Other - NEGATIVE: constipation Neurological: Other - POSITIVE: lightheadedness Positive: Slurred Speech. Negative: Weakness All Other Systems Reviewed And Are Negative: Yes Physical Exam - Summary Physical Exam Summary: Constitutional: Well-developed, Well-nourished, Alert. (-) Distressed Skin: Warm, Dry HENT: Normocephalic; Atraumatic Eyes: Conjunctiva normal Neck: Musculoskeletal ROM normal neck. (-) JVD, (-) Stridor, (-) Tracheal deviation Cardio: Rhythm regular, rate normal, Heart sounds normal; Intact distal pulses. Radial pulses are 2+ and symmetric. (-) Murmur Pulmonary/Chest wall: Effort normal. (-) Respiratory distress, (-) Wheezes, (-) Rales Abd: Soft. (-) Tenderness, (-) Distension, (-) Guarding, (-) Rebound Musculoskeletal: (-) Edema Lymph: (-) Cervical adenopathy Neuro: Alert, Oriented x3, Strength normal, Cranial nerves II-XII are grossly intact. (-) Dysmetria, (-) Nystagmus, (-) Ataxia by finger to nose testing, (-) Sensory deficit. Psych: Mood and affect Normal Triage Information Reviewed: Yes Vital Signs On Initial Exam: Initial Vitals Temp Pulse Resp BP Pulse Ox 98.2 F 59 19 147/79 98 07/17/19 15:58 07/17/19 15:58 07/17/19 15:58 07/17/19 15:58 07/17/19 15:58 Vital Signs Reviewed: Yes - Brianna Coma Scale Best Eye Response: 4 - Spontaneous Best Motor Response: 6 - Obeys Commands Best Verbal Response: 5 - Oriented Coma Scale Total: 15 Procedures - Sedation Patient Received Moderate/Deep Sedation with Procedure: No Diagnostics - Vital Signs Vital Signs Temp Pulse Resp BP Pulse Ox 07/17/19 15:58 98.2 F 59 19 147/79 98 - Laboratory Result Diagrams: 07/17/19 16:30 07/17/19 16:30 Lab Statement: Any lab studies that have been ordered have been reviewed, and results considered in the medical decision making process. - CT Brain CT CT Interpretation Completed By: Radiologist Summary of CT Findings: IMPRESSION: There is no evidence of intracranial mass or hemorrhage. Dr. Vaughan has reviewed this report. - EKG 16:32 Cardiac Rate: Bradycardia - at 54 bpm EKG Rhythm: Sinus Bradycardia Summary of EKG Findings: EKG at 1632 shows sinus bradycardia at a rate of 54 bpm. No obvious ischemic changes. NIH Scale - NIH Scale Level of Consciousness: Alert/Keenly Responsive Ask Patient the Month and His/Her Age: Both Correct Ask Pt to Open/Close Eyes and Dry Roller/Release Non-Paretic Hand: Both Correctly Best Gaze (Only Horizontal Eye Movement): Normal Visual Field Testing: No Visual Loss Facial Paresis-Pt to Smile & Close Eyes or Grimace Symmetry: Normal/Symmetrical Motor Function - Right Arm: No Drift-Holds 10 Seconds Motor Function - Left Arm: No Drift-Holds 10 Seconds Motor Function - Right Leg: No Drift-Holds 10 Seconds Motor Function - Left Leg: No Drift-Holds 10 Seconds Limb Ataxia-Must be out of Proportion to Weakness Present: Absent Sensory (Use Pinprick to Test Arms/Legs/Trunk/Face): Normal Best Language (Describe Picture, Name Items): No Aphasia Dysarthria (Read Several Words): Normal Extinction and Inattention: No Abnormality Total Score: 0 Re-Evaluation - Re-Evaluation First Eval Re-Evaluation Time: 17:44 Comment: Reviewed admission plan. Course/Dx - Course Course Of Treatment: Patient is here with slurred speech that has resolved. Patient had a NIHSS of 0 upon arrival. Patient had blood work performed which showed CKD at his baseline. Patient had negative CT brain. Patient cannot have a CTA due to his CKD. Neurology was called and they recommended MRI of the brain, carotid ultrasound, and admission to the hospital. - Diagnoses Provider Diagnoses: TIA (transient ischemic attack), CKD (chronic kidney disease), Diabetes - Physician Notifications Discussed Care Of Patient With: Graham Chao Time Discussed With Above Provider: 17:31 Instructed by Provider To: Other - Discussed with Dr. Chao, neurologist, who recommends admission, MRI, and carotid US. [17:19] Discussed with Dr. العراقي, hospitalist, who accepted the pt for admission. Discharge ED - Sign-Out/Discharge Documenting (check all that apply): Patient Departure - Admit to [facility] [place] - Discharge Plan Condition: Stable Disposition: ADMITTED TO [facility] Referrals: Daiana Bautista [Primary Care Provider] - - Billing Disposition and Condition Condition: STABLE Disposition: Admitted to [facility] - Attestation Statements Document Initiated by Scribe: Yes Documenting Scribe: Zuleima Cohn Provider For Whom Scribe is Documenting (Include Credential): Michele Vaughan MD Scribe Attestation: Zuleima Reyes, scribed for Michele Vaughan MD on 07/17/19 at 1846. Scribe Documentation Reviewed: Yes Provider Attestation: The documentation as recorded by the scribe, Zuleima Cohn accurately reflects the service I personally performed and the decisions made by me, Michele Vaughan MD Status of Debbie Document: Viewed
[2019-07-17 16:36] LABS: ABS Basophils 0.1 10^3/ul (0-0.2); ABS Eosinophils 0.2 10^3/ul (0-0.6); ABS Lymphocytes 0.9 10^3/ul (1.0-4.8); ABS Monocytes 0.8 10^3/ul (0-0.8); ABS Neutrophils 5.9 10^3/ul (1.5-7.7); Eosinophil % 2.3 %; Hematocrit 29 % (42-52); Hemoglobin 10.2 g/dL (14.0-18.0); Mean Corpuscular HGB Conc 36 g/dL (31-36); Mean Corpuscular Hemoglobin 28 pg (27-31); Mean Corpuscular Volume 78 fL (80-94); Mean Platelet Volume 7.6 fL (7.4-10.4); Platelet Count 291 10^3/uL (150-450); Red Cell Distribution Width 15 % (10-15); White Blood Count 7.9 10^3/uL (3.5-10.8)
[2019-07-17 16:53] LABS: Albumin 3.8 g/dL (3.2-5.2); BUN/Creatinine Ratio 20.8 (8-20); Calcium 8.4 mg/dL (8.6-10.3); EGFR African American 17.8 (>60); EGFR Non-African American 14.7 (>60); Globulin 3.9 g/dL (2-4); Total Bilirubin 0.4 mg/dL (0.2-1.0); Total Protein 7.7 g/dL (6.4-8.9)
[2019-07-17] MEDS ORDERED: Clopidogrel TAB* 300 MG PO ONE (17:46)
[2019-07-17] MEDS ORDERED: Aspirin 81 mg CHEW TAB* 81 MG TAB.CHEW PO ONE (17:46)
[2019-07-17 18:59] LABS: Urine Appearance Clear; Urine Bilirubin Negative (Negative); Urine Blood 1+ (Negative); Urine Color Yellow; Urine Glucose Negative (Negative); Urine Ketones Negative (Negative); Urine Nitrite Negative (Negative); Urine Protein 2+(100 mg/dL) (Negative); Urine Specific Gravity 1.012 (1.010-1.030); Urine Urobilinogen Negative (Negative)
[2019-07-17 19:14] LABS: Urine Bacteria 1+ (Absent); Urine Red Blood Cell Trace(0-2/hpf) (Absent); Urine White Blood Cell Trace(0-5/hpf) (Absent)
[2019-07-17] MEDS ORDERED: Ondansetron ODT TAB* 4 MG SL PRN (19:23)
--- NOTE | 2019-07-17 21:30 | HP ---
CC: Daiana Bautista NP * [facility] MEDICINE HISTORY AND PHYSICAL: DATE OF ADMISSION: 07/17/19 PRIMARY CARE PHYSICIAN: Daiana Bautista NP ATTENDING PHYSICIAN: Dr. Zuleima العراقي * (dictation provided by Nancie Amaral NP) . CHIEF COMPLAINT: Staring spell. HISTORY OF PRESENT ILLNESS: Mr. Carrillo is a 63-year-old male with a past medical history of chronic anemia, chronic kidney disease and nephrotic syndrome , hypertension, hyperlipidemia, and type 2 diabetes with gastroparesis, who presents today at the hospital with concern for episode of staring. Mr. Carrillo provides the history today, but he does not remember the events that led to his admission. He states that he has been feeling generally in his normal state of health over the past few weeks. Intermittently, he has been not quite feeling himself and perhaps a bit nauseous, but nothing more significant than that. Today, he woke up and was feeling well. He ate lunch and then this afternoon was described to have had an episode where he was staring of in the distance. There are no family members here available at the bedside to describe this episode to me, but this is what it was reported to the emergency room staff. The patient states that he does remember coming to the hospital and was driven in by family and he feels that he is back to baseline and per the emergency room providers, his family concurred. In the emergency room, Mr. Carrillo had a CT of the brain, which showed no acute abnormality. He had labs, which confirmed his chronic anemia and his chronic kidney disease; however, his BUN and creatinine are slightly elevated from baseline. His urine shows no evidence of infection. His EKG shows sinus rhythm with no evidence of ischemia. PAST MEDICAL HISTORY: 1. History of chronic anemia. 2. Chronic kidney disease, stage 4. 3. Nephrotic syndrome. 4. Hypertension. 5. Hyperlipidemia. 6. Anxiety. 7. Gout. 8. History of type 2 diabetes, not currently on medications, diet controlled. PAST SURGICAL HISTORY: 1. History of a right great toe amputation due to osteomyelitis. 2. History of knee surgery in the past. 3. Status post appendectomy. MEDICATIONS: Medications outpatient: The patient states that the ED providers examined the patient's bottles of medications to perform the medication reconciliation; however, the patient states that he is not on antibiotics, which were listed on his medication reconciliation. I have attempted to call the family, but has not gotten an answer tonight. Thus far, the medication reconciliation is as follows, which should be corroborated. He is on: 1. Metoprolol succinate 125 mg p.o. daily. 2. Losartan 25 mg p.o. daily. 3. Ferrous sulfate 325 mg p.o. daily. 4. Amlodipine 10 mg p.o. daily. 5. Metolazone 2.5 mg p.o. daily. 6. Furosemide 20 mg p.o. daily. 7. Levothyroxine 25 mcg p.o. daily. 8. Isosorbide mononitrate ER 30 mg p.o. daily. ALLERGIES: To LISINOPRIL and NIACIN. FAMILY HISTORY: The patient's father had AK, pacemaker, and asthma. SOCIAL HISTORY: No report of tobacco use. The patient is a former drinker, but has not drunk in many years. No report of drug use. His mother, Tricia, will be the healthcare proxy. REVIEW OF SYSTEMS: A 14-point review of systems was completed with Mr. Carrillo and all those not mentioned above were negative. PHYSICAL EXAMINATION GENERAL: Mr. Carrillo is sitting up in the bed. He is in no acute distress. VITAL SIGNS: Temperature 98.2, pulse rate 55, respiratory rate 19, O2 saturation 95% on room air, blood pressure 140/69. HEENT: Extraocular movements are intact. LUNGS: Clear to auscultation bilaterally with no accessory muscle use and good aeration. ABDOMEN: Soft and nontender with bowel sounds positive x4. HEART: S1, S2. No murmur, rub, or gallop and regular. EXTREMITIES: No cyanosis. Positive 1+ edema. NEUROLOGIC: He is alert. He is oriented x3. He moves all extremities equally. There is no facial asymmetry or focal weakness. SKIN: Intact. DIAGNOSTIC STUDIES/LAB DATA: WBC 7.9, hemoglobin 10.2, hematocrit 29, platelet count 291. Sodium 132, potassium 4.0, chloride , BUN 86, creatinine 4.13. Urine shows no evidence of infection. Again, the CT brain is normal. EKG shows sinus bradycardia with heart rate of 54. No evidence of ischemia. ASSESSMENT: Mr. Carrillo is a 63-year-old male with a past medical history of chronic anemia, chronic kidney disease with nephrotic syndrome, apparent diet- controlled diabetes, who presents today to the hospital with concern for an episode of staring off in space with concern for possible transient ischemic attack or potentially a seizure. Our plans are for inpatient admission as I expect his length of stay to be greater than 2 days for the following. 1. Transient ischemic attack versus seizure. Plan to order EEG. The patient will be seeing Dr. Chao in consultation. Dr. Chao has recommended MRI and carotid ultrasound, which have been ordered. The patient was given a Plavix load and aspirin load in the ED. I will continue with aspirin daily until Dr. Chao will see the patient tomorrow and determine whether or not additional Plavix is needed. The patient will have neuro checks per routine. He will be monitored on the telemetry unit. In terms of risk factors, he does have hypertension, which at least here appears generally well controlled. He has diabetes, glucose is normal on arrival. The last seen hemoglobin A1c from our record was in May, we will repeat and we will recheck lipids. 2. Chronic kidney disease. His creatinine and BUN are elevated from baseline. He has received 1 L of IV fluids already in the emergency room. My plan for now is to hold his metolazone and furosemide and to recheck his labs in the a.m. to determine whether or not those should be dosed at that point. I do not plan to give further IV fluids since he has already been hydrated in the ED. 3. Hypertension. Plan to continue his amlodipine, his isosorbide, his losartan and his metoprolol. 4. Hypothyroidism. Continue levothyroxine. 5. Type 2 diabetes. Apparently, the patient is not on any medications. Plan to corroborate with him now and to also double check with his family tomorrow when someone is available. 6. DVT prophylaxis with heparin subcu. 7. Code status is full code. TIME SPENT: Approximately 60 minutes was spent on the admission of this patient ; more than half the time was spent with the patient at the bedside reviewing the events leading up to this hospitalization and performing the physical examination, and reviewing my plan of care. NANCIE AMARAL NP [id number]/[facility] #: [id number] MAG
[2019-07-17] MEDS: Heparin VIAL(*) 5000 UNITS/ML VIAL (FIVE THOUSAND) SUBCUT SCH (22:17)
[2019-07-17] MEDS: Acetaminophen TAB* 325 MG PO PRN (22:46)
[2019-07-18] MEDS: Levothyroxine TAB* 25 MCG TAB PO SCH (05:32)
[2019-07-18] MEDS: Heparin VIAL(*) 5000 UNITS/ML VIAL (FIVE THOUSAND) SUBCUT SCH ×3 (05:33→21:13)
[2019-07-18] MEDS: Metoprolol Succinate XL TAB* 100 MG PO SCH (09:01)
[2019-07-18] MEDS: Losartan TAB* 25 MG PO SCH (09:14)
[2019-07-18] MEDS: Ferrous Sulfate TAB* 325 MG PO SCH (09:14)
[2019-07-18] MEDS: Isosorbide Mononitrate ER TAB* 30 MG PO SCH (09:15)
[2019-07-18] MEDS: Aspirin TAB* 325 MG PO SCH (09:15)
[2019-07-18] MEDS: amLODIPine TAB* 5 MG PO SCH (09:15)
[2019-07-18 09:49] LABS: ABS Basophils 0.1 10^3/ul (0-0.2); ABS Eosinophils 0.1 10^3/ul (0-0.6); ABS Lymphocytes 0.8 10^3/ul (1.0-4.8); ABS Monocytes 0.6 10^3/ul (0-0.8); ABS Neutrophils 4.3 10^3/ul (1.5-7.7); Eosinophil % 2.1 %; Hematocrit 29 % (42-52); Hemoglobin 9.9 g/dL (14.0-18.0); Lymphocyte % 13.4 %; Mean Corpuscular HGB Conc 34 g/dL (31-36); Mean Corpuscular Hemoglobin 27 pg (27-31); Mean Corpuscular Volume 79 fL (80-94); Mean Platelet Volume 7.6 fL (7.4-10.4); Platelet Count 274 10^3/uL (150-450); Red Blood Count 3.65 10^6 /uL (4.18-5.48); Red Cell Distribution Width 15 % (10-15); White Blood Count 5.9 10^3/uL (3.5-10.8)
[2019-07-18 10:07] LABS: BUN/Creatinine Ratio 22.2 (8-20); Calcium 8.3 mg/dL (8.6-10.3); EGFR African American 20.8 (>60); EGFR Non-African American 17.2 (>60)
[2019-07-18] MEDS ORDERED: Iron Sucrose* 200 MG in NS 0.9% 100 ML* 100 ML IVPB ONE (14:37)
[2019-07-18] MEDS: Clopidogrel TAB* 75 MG PO SCH (15:27)
--- NOTE | 2019-07-18 15:41 | CONS ---
CC: Daiana Bautista NP * NEUROLOGY CONSULTATION: DATE OF CONSULT: 07/18/19 LOCATION: He is an inpatient in room 453. REFERRING PROVIDER: Nancie Amaral NP CHIEF COMPLAINT: Episode of confusion and difficulty walking. HISTORY OF PRESENT ILLNESS: Louie Carrillo is a 63-year-old gentleman who presented to the emergency room yesterday with an episode of staring, slurred speech, and difficulty walking. The history was from the patient, the medical record, and I spoke with his mother who was present. He was at a family event yesterday. He had felt fine earlier in the day. He does not recall feeling dizzy, lightheaded, or faint. The next thing he knows he was "not feeling well " and being helped to walk. He was brought by his family into the emergency room. He recalls the ride into the emergency room and being in the emergency room. He has felt fine since. He feels fine today. He reports what other people told him he was like, but he does not recall the episode itself. He denies headache or feeling faint or dizzy. I spoke with his mother. She said he was fine, but then started to slur his speech and seemed very confused. He was red in the face. He was not able to walk independently. They helped him to a bed and laid him down. They had to use a wheelchair. Normally he gets around with a walker or can walk independently. She believes it lasted about 10 to 15 minutes and then he returned to normal. During that time, he tried to interact, but his speech was slurred. It was his mother's opinion that he was always aware of his surroundings, but he is amnestic for the entire episode. There was no evidence of weakness on one side of his body or face according to his mother. She did not notice any involuntary movements such as shaking or jerking. He did not look pale, but rather red in the face. There is no prior history of stroke, transient ischemic attack, or seizures. He was seen by Dr. Mary Lees of Neurology in 2016 when he was in the hospital with lower extremity pain and was treated with narcotics and became confused. He had an EEG, which was interpreted as normal other than mild diffuse slowing. There is no history of head trauma, meningitis, or epilepsy. He had an MRI of the brain on 02/19/16 with indication listed as headache. It was interpreted as normal and I reviewed the images and I agree. PAST MEDICAL HISTORY: Notable for chronic renal insufficiency. His BUN was more elevated than it usually is upon presentation to the emergency room yesterday as was his creatinine. He said he had been drinking fluids well and eating reasonably well. Past medical history is also notable for type 2 diabetes with peripheral neuropathy, peripheral vascular disease, anemia of chronic disease, nephrotic syndrome, hypertension, hyperlipidemia, gout, anxiety disorder. PAST SURGICAL HISTORY: Notable for toe amputations for osteomyelitis, orthopedic surgeries. MEDICATIONS: At home consist of: 1. Metoprolol 125 mg p.o. daily. 2. Amlodipine 10 mg p.o. daily. 3. Metolazone 2.5 mg p.o. daily. 4. Furosemide 20 mg p.o. daily. 5. Levothyroxine 25 mcg p.o. daily. 6. Isosorbide mononitrate ER 30 mg p.o. daily. He does not take aspirin or other antiplatelet agents on a regular basis. ALLERGIES: He is allergic to LISINOPRIL and NIACIN. FAMILY HISTORY: Notable for a father with history of coronary artery disease. Mother is in good health. SOCIAL HISTORY: He used to drink excessively, but not for years. He does not smoke cigarettes. REVIEW OF SYSTEMS: Negative for headaches, change in vision, weight change, faints, shortness of breath, chest pain. He has had some nausea intermittently , but no vomiting. The rest of the 14-point review of systems is unremarkable other than the history of present illness and past medical history. PHYSICAL EXAM: He is an overweight gentleman, who is otherwise well hydrated and well nourished. His heart rate is running in the 50s and in sinus on the monitor. Blood pressure is running from a low of 120/48 to a high of 155/81, most recently 144/66. Respiratory rate is 16 and oxygen saturation is 96% on room air. Lungs are clear bilaterally. Heart is in a regular rate and rhythm with a grade 3/6 systolic murmur at left sternal border. There are no cervical bruits. Oral mucosa is moist and there is no oral trauma. He has amputation of some toes on the right foot. He has 2+ ankle edema bilaterally. Neurological Exam: Pupils are small and about 2 to perhaps 2.5 mm. They react weakly to light by about half a millimeter. Eye movements are normal. Funduscopic exam reveals sharp discs bilaterally. I do not see any hemorrhages or embolic phenomenon. Visual sanchez are full to confrontation bilaterally. Facial musculature is symmetric. Palate and tongue appear normal and speech is clear without dysarthria. Tongue protrudes in the midline and palate rises symmetrically. Facial sensation to light touch is symmetric. Hearing is intact. Shoulder shrug is normal bilaterally. Motor exam reveals ankle dorsiflexor weakness bilaterally, but normal strength proximally and distally in the upper extremities and proximally in the lower extremities. Sensory exam is notable for absent light touch in the lower extremities below the knees. He has absent temperature sensation below the knees. He is diminished to light touch in the hands to above the wrists bilaterally. Temperature sensation is diminished in the hands, but not the forearms. He is areflexic. Plantar responses are equivocal. There is a mild high frequency tremor in the outstretched hands. There is no myoclonus or asterixis. Finger taps are normal in the hands. He is alert and oriented to person, place, and time. His memory seems quite good other than the time around the episode described in the history of present illness. Language is fluent. DIAGNOSTIC STUDIES/LAB DATA: Includes a CT scan of the brain from yesterday, which I reviewed the images of. Interpretation was no evidence of intracranial mass or hemorrhage. I reviewed the images and I believe it does look quite normal. EKG from yesterday reveals sinus bradycardia at a rate of 54. He has a borderline HI interval at 0.20. Other laboratory data is notable for a CBC remarkable for a hemoglobin of 10.2 yesterday, which is consistent with historical values. White blood cell count is not elevated. His chemistries on admission are notable for creatinine of 4.13, which is slightly higher than historical norms. It is down to 3.61 today , which is more similar to values in 2019, but it has been rising it appears over the last couple of years. His BUN yesterday when he came in was 86, which is higher than his historical norms and is down a little bit to 80 today. The rest of his chemistry profile is fairly unremarkable. His electrolytes are fairly normal, calcium is 8.3 on 07/18/19 which is also similar to historical norms. His last TSH in the record is from 2018. IMPRESSION AND PLAN: Impression is that of an episode of confusion, slurred speech, and difficulty walking for which the patient is amnestic. Differential diagnosis includes transient ischemic attack, partial seizure, metabolic or cardiovascular event. He was a little bit more azotemic than usual when he came in, but the event seems more circumscribed than would be expected for a purely metabolic problem. He is a little bit bradycardic and he has not had his TSH checked in a while and he is on levothyroxine, so I would recommend that that be checked. He has orders in for an EEG, carotid ultrasound, and MRI of the brain without contrast , which I agree with. I spoke with Dr. Vaughan on the phone yesterday and recommended that we load Mr. Carrillo with clopidogrel 300 mg as well as aspirin 81 mg and maintain that until his workup is complete and we have more a definitive diagnosis. I put in a maintenance dose of clopidogrel 75 mg today. I put in the order for the TSH. The MRI scan will be done tomorrow since today is a Friday and we will get the EEG in the morning as well. I am not sure when the carotid ultrasound will be done. For now, he appears quite stable. I have discussed the plan with Mr. Carrillo and his daughter who is present in the room. I will sign him out to Dr. Carlos Soriano, who will be on for Neurology starting tomorrow morning. [id number]/[facility] #: [id number] MTDD
[2019-07-18 16:07] LABS: TSH (Thyroid Stimulating Horm) 0.82 mcIU/mL (0.34-5.60)
--- NOTE | 2019-07-18 16:07 | PN ---
Subjective Date of Service: 07/18/19 Interval History: Mr. Carrillo states that he is "not bad." He notes that he had an episode of slurred speech, weakness and difficutly moving b/l LE, which has since resolved. H&P also mentions an episode of staring. He does not remember this event. He c/o occasional chills. He has no other complaints today. Objective Active Medications: Acetaminophen (Tylenol Tab*) 650 mg PO Q6H PRN PRN Reason: PAIN - MILD Last Admin: 07/17/19 22:46 Dose: 650 mg Amlodipine Besylate (Norvasc Tab*) 10 mg PO DAILY [facility] Last Admin: 07/18/19 09:15 Dose: 10 mg Aspirin (Aspirin Tab*) 325 mg PO DAILY [facility] Last Admin: 07/18/19 09:15 Dose: 325 mg Clopidogrel Bisulfate (Plavix Tab*) 75 mg PO DAILY [facility] Last Admin: 07/18/19 15:27 Dose: 75 mg Ferrous Sulfate (Ferrous Sulfate Tab*) 325 mg PO DAILY [facility] Last Admin: 07/18/19 09:14 Dose: 325 mg Heparin Sodium (Porcine) (Heparin Vial(*)) 5,000 units SUBCUT Q8HR [facility] Last Admin: 07/18/19 13:36 Dose: 5,000 units Isosorbide Mononitrate (Imdur Er Tab*) 30 mg PO DAILY [facility] Last Admin: 07/18/19 09:15 Dose: 30 mg Levothyroxine Sodium (Synthroid Tab*) 25 mcg PO DAILY@0600 [facility] Last Admin: 07/18/19 05:32 Dose: 25 mcg Losartan Potassium (Cozaar Tab*) 25 mg PO DAILY [facility] Last Admin: 07/18/19 09:14 Dose: 25 mg Metoprolol Succinate (Toprol Xl Tab*) 100 mg PO DAILY [facility] Last Admin: 07/18/19 09:01 Dose: Not Given Ondansetron HCl (Zofran Odt Tab*) 4 mg SL Q6H PRN PRN Reason: NAUSEA/VOMITING Vital Signs: Temp Pulse Resp BP Pulse Ox 97.8 F 56 16 144/66 96 07/18/19 08:13 07/18/19 08:13 07/18/19 08:13 07/18/19 08:13 07/18/19 08:13 Oxygen Devices in Use Now: None Appearance: Mr. Carrillo is an obese middle-aged white male who is sitting up in bed. He appears to be in no acute distress. Eyes: No Scleral Icterus, PERRLA Ears/Nose/Mouth/Throat: NL Teeth, Lips, Gums, Clear Oropharnyx, Mucous Membranes Moist Neck: NL Appearance and Movements; NL JVP, Trachea Midline Respiratory: Symmetrical Chest Expansion and Respiratory Effort, Clear to Auscultation Cardiovascular: NL Sounds; No Murmurs; No JVD, RRR, No Edema Abdominal: NL Sounds; No Tenderness; No Distention, No Hepatosplenomegaly Extremities: No Edema, No Clubbing, Cyanosis Neurological: Alert and Oriented x 3, NL Muscle Strength and Tone, - - CN II- XII grossly intact Result Diagrams: 07/18/19 09:41 07/18/19 09:40 Assess/Plan/Problems-Billing Assessment: 63yom PMHx HTN, HLD, diet controlled DM who presented to the ER with episode of staring, slurred speech, b/l LE weakness which has since resolved; he is awaiting completion of TIA workup. - Patient Problems (1) Dysarthria Comment: -presents with episode of staring, slurred speech, b/l LE weakness, since resolved -neurology consulting; thank you for recommendations -MRI brain, US carotids ordered, pending -Lipids, HA1c pending -continue asa, plavix -TSH pending (2) Acute kidney injury superimposed on CKD Comment: -likely pre-renal -improved with IVF -monitor intermittently (3) HTN (hypertension) Comment: -SBP 120-150'2 -continue metoprolol, amlodipine, Imdur, losartan (4) Diabetes Comment: -diet controlled -repeat HA1c (5) Anemia Comment: -IV iron today -continue ferrous sulfate (6) HLD (hyperlipidemia) Comment: -h/o HLD, but does not appear to be on atorvaston -repeat lipids tomorrow a.m. (7) Hypothyroidism Comment: -TSH pending -continue levothyroxine (8) DVT prophylaxis Comment: -SQ heparin (9) Full code status Status and Disposition: Inpatient. Discharge when stable.
[2019-07-19] MEDS ORDERED: Melatonin 3 MG TAB PO ONE ×2 (01:29→01:33)
[2019-07-19] MEDS: Levothyroxine TAB* 25 MCG TAB PO SCH (05:26)
[2019-07-19] MEDS: Heparin VIAL(*) 5000 UNITS/ML VIAL (FIVE THOUSAND) SUBCUT SCH ×3 (05:26→20:33)
[2019-07-19] MEDS: Aspirin TAB* 325 MG PO SCH (08:00)
[2019-07-19] MEDS: Ferrous Sulfate TAB* 325 MG PO SCH (08:00)
[2019-07-19] MEDS: amLODIPine TAB* 5 MG PO SCH (08:00)
[2019-07-19] MEDS: Losartan TAB* 25 MG PO SCH (08:00)
[2019-07-19] MEDS: Isosorbide Mononitrate ER TAB* 30 MG PO SCH (08:00)
[2019-07-19] MEDS: Clopidogrel TAB* 75 MG PO SCH (08:00)
[2019-07-19] MEDS: Metoprolol Succinate XL TAB* 100 MG PO SCH (08:00)
[2019-07-19 08:46] LABS: HDL Cholesterol 29.1 mg/dL
[2019-07-19 09:32] LABS: Ferritin 150.4 ng/mL (24-336)
--- NOTE | 2019-07-19 13:00 | EEG ---
ELECTROENCEPHALOGRAPHY: DATE OF STUDY: 07/19/19 - ROOM #453 ORDERED BY: Nancie Amaral NP. MEDICATIONS: 1. Amlodipine. 2. Aspirin. 3. Plavix. 4. Imdur. 5. Losartan. 6. Metoprolol. 7. Heparin. 8. Levothyroxine. DURATION: 8:58 to 9:21 CLINICAL STATE: Awake and drowsy. REPORT: The most prominent feature of this recording was occasional, diffuse, frontally predominant 2-4 Hz delta and theta range slowing lasting for 1-2 seconds. Otherwise, the waking background showed appropriate organization with clearly defined anterior-posterior voltage and frequency gradients. There was a well- defined posterior dominant rhythm of 9 Hz, which was symmetrical and showed normal reactivity. Anteriorly, there was an expected pattern of lower voltage, irregular, mixed faster frequencies. Attenuation of the occipital rhythm accompanied drowsiness. Hyperventilation and photic stimulation were not performed. Single electrode EKG showed normal sinus rhythm with a rate of 70 beats per minute. CLINICAL IMPRESSION: This is an abnormal awake and drowsy EEG due to frontally predominant, but also diffuse occasional polymorphic slowing of the background. These findings are suggestive of mild, nonspecific, diffuse encephalopathy. [id number]/[facility] #: [id number] [facility] INSANEHeather
[2019-07-19 13:49] LABS: BUN/Creatinine Ratio 22.5 (8-20); Calcium 8.8 mg/dL (8.6-10.3); EGFR African American 23.9 (>60); EGFR Non-African American 19.8 (>60); Potassium 4.2 mmol/L (3.5-5.0)
--- NOTE | 2019-07-19 17:30 | PN ---
Subjective Date of Service: 07/19/19 Interval History: Patient has no complaints this morning. He denies numbness/weakness/tingling to extremities, changes in vision, dizziness/lightheadedness, palpitations, chest pain, difficulty breathing. Objective Active Medications: Acetaminophen (Tylenol Tab*) 650 mg PO Q6H PRN PRN Reason: PAIN - MILD Last Admin: 07/19/19 00:00 Dose: 650 mg Amlodipine Besylate (Norvasc Tab*) 10 mg PO DAILY [facility] Last Admin: 07/19/19 08:00 Dose: 10 mg Aspirin (Aspirin Tab*) 325 mg PO DAILY [facility] Last Admin: 07/19/19 08:00 Dose: 325 mg Carbidopa/Levodopa (Sinemet 25/100 Tab(*)) 0.5 tab PO BEDTIME [facility] Clopidogrel Bisulfate (Plavix Tab*) 75 mg PO DAILY [facility] Last Admin: 07/19/19 08:00 Dose: 75 mg Heparin Sodium (Porcine) (Heparin Vial(*)) 5,000 units SUBCUT Q8HR [facility] Last Admin: 07/19/19 12:49 Dose: 5,000 units Isosorbide Mononitrate (Imdur Er Tab*) 30 mg PO DAILY [facility] Last Admin: 07/19/19 08:00 Dose: 30 mg Levothyroxine Sodium (Synthroid Tab*) 25 mcg PO DAILY@0600 [facility] Last Admin: 07/19/19 05:26 Dose: 25 mcg Losartan Potassium (Cozaar Tab*) 25 mg PO DAILY [facility] Last Admin: 07/19/19 08:00 Dose: 25 mg Metoprolol Succinate (Toprol Xl Tab*) 100 mg PO DAILY [facility] Last Admin: 07/19/19 08:00 Dose: 100 mg Ondansetron HCl (Zofran Odt Tab*) 4 mg SL Q6H PRN PRN Reason: NAUSEA/VOMITING Vital Signs - 8 hr 07/19/19 07/19/19 11:15 16:24 Temperature 97.6 F 97.5 F Pulse Rate 58 55 Respiratory 18 16 Rate Blood Pressure 149/63 146/61 (mmHg) O2 Sat by Pulse 100 100 Oximetry Oxygen Devices in Use Now: None Appearance: White male who appears older than stated age, sitting in chair, appearing comfortable and in NAD; restricted affect Eyes: No Scleral Icterus, - - PERRL Ears/Nose/Mouth/Throat: Mucous Membranes Moist Neck: Trachea Midline Respiratory: Symmetrical Chest Expansion and Respiratory Effort, Clear to Auscultation Cardiovascular: NL Sounds; No Murmurs; No JVD, RRR Abdominal: - - abd soft, nontender, nondistended Extremities: No Edema, No Clubbing, Cyanosis Skin: No Rash or Ulcers Neurological: Alert and Oriented x 3, NL Muscle Strength and Tone, - - sensation grossly normal Result Diagrams: 07/18/19 09:41 07/19/19 13:10 Microbiology and Other Data: Microbiology 07/17/19 18:50 Urine Culture - Final Urine No Growth (<1,000 CFU/mL) Assess/Plan/Problems-Billing Assessment: 63yom PMHx HTN, HLD, diet controlled DM who presented to the ER with episode of staring, slurred speech, b/l LE weakness which has since resolved; he is awaiting completion of TIA workup. - Patient Problems (1) Dysarthria Current Visit: Yes Status: Acute Code(s): R47.1 - DYSARTHRIA AND ANARTHRIA SNOMED Code(s): 8136897 Comment: -presents with episode of staring, slurred speech, b/l LE weakness. This has since resolved -neurology consulting; appreciate recommendations -MRI brain pending still at time of this note in the late evening -US carotids with 50-69% stenosis on right side -EEG with nonspecific encephalopathy -LDL 76, starting low dose statin -continue asa, plavix -echo pending (2) Shuffling gait Current Visit: Yes Status: Acute Code(s): R26.89 - OTHER ABNORMALITIES OF GAIT AND MOBILITY SNOMED Code(s): 88898463 Comment: -appreciate neurology consult; Dr. Soriano noted this on exam -in combination with his restricted affect, Dr. Soriano has concern for Parkinson' s -starting sinemet 12.[address] Soriano's rec (3) CKD (chronic kidney disease) Current Visit: Yes Status: Acute Code(s): N18.9 - CHRONIC KIDNEY DISEASE, UNSPECIFIED SNOMED Code(s): 178219608 Comment: -at baseline today (4) Anemia Current Visit: Yes Status: Acute Code(s): D64.9 - ANEMIA, UNSPECIFIED SNOMED Code(s): 783126384 Comment: -iron studies entirely within normal limits -likely anemia of chronic disease related to CKD or possibly thalassemia -d/c iron supplement (5) Hypothyroidism Current Visit: Yes Status: Acute Code(s): E03.9 - HYPOTHYROIDISM, UNSPECIFIED SNOMED Code(s): 39883822 Comment: -TSH wnl -continue levothyroxine (6) (HFpEF) heart failure with preserved ejection fraction Current Visit: No Status: Acute Code(s): I50.30 - UNSPECIFIED DIASTOLIC ( CONGESTIVE) HEART FAILURE SNOMED Code(s): 634828742 Comment: -chronic bilateral LE edema -would perhaps benefit from gentle po diuresis outpatient, but will avoid at this time as patient presented with JAJA which resolved only today -continue losartan and metoprolol -ordering TEDs (7) Diabetes Current Visit: No Status: Chronic Code(s): E11.9 - TYPE 2 DIABETES MELLITUS WITHOUT COMPLICATIONS SNOMED Code(s): 84283573 Comment: -diet controlled -HA1c=6.3% indicating good control (8) HTN (hypertension) Current Visit: No Status: Chronic Code(s): I10 - ESSENTIAL (PRIMARY) HYPERTENSION SNOMED Code(s): 50724652 Comment: -normotensive -continue metoprolol, amlodipine, Imdur, losartan (9) DVT prophylaxis Current Visit: No Status: Acute Priority: Medium Code(s): OBR1666 - SNOMED Code(s): 003115265 Comment: -SQ heparin (10) Full code status Current Visit: No Status: Acute Code(s): Z78.9 - OTHER SPECIFIED HEALTH STATUS SNOMED Code(s): 348880974 Status and Disposition: Inpatient awaiting MRI
[2019-07-19] MEDS: Atorvastatin* 20 MG TAB PO SCH (18:18)
[2019-07-19] MEDS: Acetaminophen TAB* 325 MG PO PRN ×2 (18:30)
[2019-07-19] MEDS ORDERED: Carbidopa/Levodop 25/100 MG TAB(*) PO SCH (21:00)
[2019-07-19] MEDS ORDERED: Melatonin 3 MG TAB PO PRN (22:36)
[2019-07-20] MEDS: Acetaminophen TAB* 325 MG PO PRN ×2 (02:09→14:36)
--- NOTE | 2019-07-20 03:13 | PN ---
NEUROLOGY PROGRESS NOTE: DATE OF SERVICE: 07/19/19 The patient is being cared by HOMAR Knutson. The patient was admitted on 07/17/19. Dr. Chao was consulted on 07/18/19 to evaluate the patient for an episode of confusion and slurred speech. The patient also has had difficulty walking. The history was mostly obtained by the daughter Evelin and the patient today. The patient stated that he is back to his normal self. The episode of slurred speech, confusion, and difficulty walking lasted for approximately 10 to 15 minutes and it was witnessed by the patient's mother. 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 At baseline, the patient walks very slow. He has not had any tremors. However, the family did state that he usually talks normal, but has recently been having trouble with talking lately. His speech seems to intermittently be slurred. The patient denied any recent falls. He denied any head injury. He had an EEG today that was notable for mild encephalopathy. He had a carotid Doppler study that was notable for possible 50% to 69% stenosis of the right ICA. No ICA stenosis on the left. MEDICATIONS: The patient was placed on aspirin and Plavix therapy. He is currently on high-dose aspirin of 325 mg p.o. daily. He is also on acetaminophen 650 mg every 6 hours as needed, Norvasc 10 mg p.o. daily, heparin subcu injection 5000 units every 8 hours, levothyroxine 25 mcg p.o. daily, Cozaar 25 mg p.o. daily, metoprolol 100 mg p.o. daily, ondansetron 4 mg daily. PHYSICAL EXAMINATION: Orthostatic BP was normal today. BP 130/86. HR 60. RR : 14. Pulse Ox: 98% on RA. General: A well-nourished, well-developed man, in no acute distress. Head: Atraumatic/normocephalic without any obvious abnormality. Neck is supple and symmetrical with no carotid bruit. Chest: Clear to auscultation bilaterally. Cardiovascular: Regular rate and rhythm with normal S1, S2. Extremities: Great toe amputation on the right. Pitting edema 2+ bilaterally. Psych: Flat affect. Normal mood. Neurologic Examination : Mental status: Awake and alert, oriented to person, place, time, and general circumstances. The patient does have evidence of psychomotor slowing. He has got bradyphrenia as well as bradykinesia. He has hypophonic speech. Masked facies was prominent during the examination. Cranial nerves: Pupils equal, round, and reactive to light. Extraocular muscles are intact. There is no facial asymmetry. Motor Examination: The patient has cogwheel rigidity, left greater than right. Strength 5/5 in the upper and lower extremities except for he has got EHL weakness graded as 4/5 bilaterally. Severe distal to proximal sensory gradient demarcated at the knees bilaterally to pinprick and light touch throughout. He has absent vibration at the medial malleolus bilaterally. Coordination: Normal [id number] bilaterally. Reflexes: Trace in the uppers and 0 at the lowers bilaterally. Gait: Normal based gait. He has fenestrated gait with small steps and en bloc turning, loss of arm swing, left worse than the right. The patient was able to walk approximately 30 feet and then had to walk back due to shortness of breath. ASSESSMENT AND RECOMMENDATION: Mr. 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 The symptoms seem to have resolved. I have a low suspicion for stroke, but a non- localizable TIA cannot be entirely excluded. Slurred speech and confusion is difficult to localize as it could be the cause of an anterior or posterior cerebral circulations TIA. On examination today, there is concerns that the patient may have some parkinsonism features. The patient has cogwheel rigidity, bradykinesia, bradyphrenia, shuffling gait, en bloc turning, loss of the arm swing (left more than right). He does not have any tremors at all. While I do not suspect that this is the cause of the patient's transient episode of confusion, gait abnormality or slurred speech, but certainly can be a contributing factor. I met with the patient's daughter, Evelin, as well as discussed this with the patient. We discussed the possible diagnosis of parkinsonism or idiopathic Parkinson's disease. He was never exposed to anti-psychotic therapy in the past. I discussed the disease process as well as a potential treatment. Evelin had relayed that if her dad is interested we can trial him on Sinemet 25 /100 to take half a tablet by mouth every 8 hours to see if his gait, speech, and mobility improves. If he tolerates the low Sinemet dose, we could increase the dose to 1 mg t.i.d. after 3 weeks. The side effects of Sinemet were discussed with the patient and Evelin and include, but are not limited to GI discomfort, orthostatic hypotension, and hallucinations. Please note that I personally checked the patient's orthostatic vitals today and they were normal. I agree with obtaining an MRI to evaluate for any vascular phenomenon and also to evaluate for possible vascular causes of Parkinson's disease. Please reduce the patient's aspirin dose to 81 mg and continue the Plavix 75 mg for a total treatment duration of 21 days. Please note that the patient has not had a transthoracic echo. Please order a transthoracic echo with bubble study to be done tomorrow. In terms of the ICA stenosis, please continue DAPT and statin therapy. He should have a repeat carotid ultrasound in six months. I will follow up with the patient tomorrow. Furthermore, the patient should be followed up with Neurology, specifically Dr. Chao/Marcial in 3 to 4 weeks. This would be a good time period to reassess the patient if he actually has improvement in his motor function. [id number]/[facility] #: [id number] MAG
[2019-07-20] MEDS: Heparin VIAL(*) 5000 UNITS/ML VIAL (FIVE THOUSAND) SUBCUT SCH ×2 (06:03→13:11)
[2019-07-20] MEDS: Levothyroxine TAB* 25 MCG TAB PO SCH (06:05)
[2019-07-20] MEDS: Losartan TAB* 25 MG PO SCH (08:20)
[2019-07-20] MEDS: amLODIPine TAB* 5 MG PO SCH (08:20)
[2019-07-20] MEDS: Isosorbide Mononitrate ER TAB* 30 MG PO SCH (08:20)
[2019-07-20] MEDS: Metoprolol Succinate XL TAB* 100 MG PO SCH (08:20)
[2019-07-20] MEDS: Clopidogrel TAB* 75 MG PO SCH (08:20)
[2019-07-20] MEDS ORDERED: Aspirin EC TAB* 81 MG TAB.EC PO SCH (09:00)
--- NOTE | 2019-07-20 11:26 | PN ---
Subjective Date of Service: 07/20/19 Length of Stay: 3 Days Neurology is following for suspected TIA and parkinsonism. Interval History: The patient is sitting in a chair in no distress. He feels better and has not experienced any slurred speech, confusion, or worsening in his gait. He did receive Sinemet last night. He denied any visual hallucinations or GI discomfort. He feels that he has improvement in his movement, I doubt that it' s related to Sinemet therapy. Labs, imaging, and other diagnostic studies: - WBC: 5.9, Sodium: 135, Creatinine: 3.20, BUN: 72, Vitamin B12: 389, LDL: 76, TSH: 0.82, Urinalysis: no pyuria. - EEG 07/19/19: abnormal awake and drowsy EEG due to frontally predominant slowing. - MRI brain 07/19/19: No area of restricted diffusion to suggest acute infarction. Left Mastoid Effusion. - Carotid Doppler study 07/19/19: possible 50-69% stenosis in the right ICA. No left ICA stenosis. Review of Systems: Denied CP, SOB, or palpitations. Objective Active Medications: Acetaminophen (Tylenol Tab*) 650 mg PO Q6H PRN PRN Reason: PAIN - MILD Last Admin: 07/20/19 02:09 Dose: 650 mg Amlodipine Besylate (Norvasc Tab*) 10 mg PO DAILY [facility] Last Admin: 07/20/19 08:20 Dose: 10 mg Aspirin (Aspirin Ec Tab*) 81 mg PO DAILY [facility] Last Admin: 07/20/19 08:20 Dose: 81 mg Atorvastatin Calcium (Lipitor*) 20 mg PO 1700 [facility] Last Admin: 07/19/19 18:18 Dose: 20 mg Carbidopa/Levodopa (Sinemet 25/100 Tab(*)) 0.5 tab PO BEDTIME [facility] Last Admin: 07/19/19 20:33 Dose: 0.5 tab Clopidogrel Bisulfate (Plavix Tab*) 75 mg PO DAILY [facility] Last Admin: 07/20/19 08:20 Dose: 75 mg Heparin Sodium (Porcine) (Heparin Vial(*)) 5,000 units SUBCUT Q8HR [facility] Last Admin: 07/20/19 06:03 Dose: 5,000 units Isosorbide Mononitrate (Imdur Er Tab*) 30 mg PO DAILY [facility] Last Admin: 01/07/20 08:20 Dose: 30 mg Levothyroxine Sodium (Synthroid Tab*) 25 mcg PO DAILY@0600 [facility] Last Admin: 07/20/19 06:05 Dose: 25 mcg Losartan Potassium (Cozaar Tab*) 25 mg PO DAILY [facility] Last Admin: 07/20/19 08:20 Dose: 25 mg Melatonin (Melatonin) 3 mg PO BEDTIME PRN PRN Reason: INSOMNIA Last Admin: 07/19/19 22:53 Dose: 3 mg Metoprolol Succinate (Toprol Xl Tab*) 100 mg PO DAILY [facility] Last Admin: 07/20/19 08:20 Dose: 100 mg Ondansetron HCl (Zofran Odt Tab*) 4 mg SL Q6H PRN PRN Reason: NAUSEA/VOMITING Vital Signs 07/19/19 07/19/19 07/19/19 16:24 19:15 20:00 Temperature 97.5 F 97.8 F Pulse Rate 55 54 Respiratory 16 16 16 Rate Blood Pressure 146/61 132/42 (mmHg) O2 Sat by Pulse 100 98 Oximetry 07/19/19 07/20/19 07/20/19 23:15 03:15 07:15 Temperature 97.9 F 97.6 F 97.9 F Pulse Rate 60 62 57 Respiratory 14 14 12 Rate Blood Pressure 129/45 153/62 142/64 (mmHg) O2 Sat by Pulse 97 99 100 Oximetry 07/20/19 07:29 Temperature Pulse Rate Respiratory 20 Rate Blood Pressure (mmHg) O2 Sat by Pulse Oximetry Intake and Output Last 24 Hours 07/18/19 07/19/19 07/20/19 07/21/19 06:59 06:59 06:59 06:59 Intake Total 1000 1310 1825 Output Total 0 0 0 Balance 1000 1310 1825 Weight 228 lb 3.2 oz 228 lb 3.2 oz Intake: IV Fluids 1000 IVPB 110 iron sucrose 110 Oral 0 1200 1825 Output: Urine 0 0 0 Other: Estimated Void Medium # Bowel Movements 2 Estimated Stool Amount Medium # Voids 2 3 Oxygen Devices in Use Now: None Neurology Exam: General: Well nourished, well developed, and in no acute distress HEENT: Normocephelic/atraumatic, sclera anicteric, mucous membranes moist Neck: Supple Chest: Clear to auscultation bilaterally Cardiovascular: RRR, holosystolic murmur. Extremities: No clubbing, cyanosis, or edema. Right toe amputation. Neurological Findings: Awake, alert, and oriented to person, place, and time. Speech: fluent without dysarthria, repetition intact Cranial Nerve: PERRL, EOM intact, VFF, no nystagmus,. Masked facies. Motor: s/s throughout, proximal and distal extremities x4 tone/bulk normal Sensation: distal to proximal sensory gradient to pinprick demarcated at the knees bilaterally. Absent vibration at the medial malleolus. Deep Tendon Reflex: trace in the upper extremity, 0 at the lower extremity. Finger to nose, rapid alternating movements intact without tremor, no dysdiadochokinesia Gait: intact with reduced arm swings in bilateral extremities. Result Diagrams: 07/18/19 09:41 07/19/19 13:10 Microbiology and Other Data: Microbiology 07/17/19 18:50 Urine Culture - Final Urine No Growth (<1,000 CFU/mL) Assessment/Plan Mr. Louie Carrillo is a 63-year-old man with history of Lyme disease with complicated neuropathy and polyradiculopathy, DMII, CKD, who presented with an episode of slurred speech, confusion, and gait abnormality. 1. Slurred speech, confusion and gait abnormality. - Since the symptoms have resolved, there is a concern for possible non- localizable TIA. - NIHSS: 0. - Continue aspirin and Plavix for 21 days, then resume aspirin 81 mg daily on . - Atorvastatin 20 mg nightly - TIA education completed. - No need for PT/OT/TAX PROFESSIONAL evaluation since the patient is back to his baseline. - Pending TTE with bubble study. The patient can be discharged once that's complete and if it's unremarkable. 2. Examination findings of bradykinesia, cogwheel rigidity, shuffling gait, masked face, and loss of arm swings. These findings are concerning for Parkinson's disease or parkinsonism. Certainly, the patient's gait abnormality is multifactorial and could also be related to arthritis in the hips, right toe amputation, and neuropathy. However, an underlying neurodegenerative disorder such as Parkinson's disease is also suspected. - He was started on Sinemet last night. He is tolerating a small dose of 25- 100 half tablet three times a day. I recommend follow-up to see if dose escalation is necessary. - Fall precautions were discussed with the patient. I encouraged him and Evelin (daughter) to evaluate if his gait or bradykinesia improves with Sinemet. - Follow-up with [facility] in 3-4 weeks.
[2019-07-20 15:47] VITALS: BP 154/64
[2019-07-20] MEDS: Atorvastatin* 20 MG TAB PO SCH (15:57)
--- NOTE | 2019-07-20 16:55 | ECHO ---
*[facility]* [place] [address] Fax #: [phone] Transthoracic Echocardiogram Patient: Louie Carrillo : 1955 Study Date: 07/20/2019 Age: 63 Gender: M HR: 62 bpm Height: 70 in /177.8 cm BSA: 2.21 m^2 Weight: 227.5 lb /103.4 kg BMI: 32.7 kg/m^2 *Accounting Analyst: * Izabela Gonzalez [facility] *Referring Physician: * Carlos Soriano *Reading Physician: * Montez Ybarra MD Indications: TIA. History: Lyme disease. Congestive heart failure. Functional status: Renal failure. Risk factors: Hypertension. Diabetes mellitus. Dyslipidemia. Conclusions Summary: - Left ventricle: Systolic function is hyperdynamic. The estimated ejection fraction is 70-75%. Wall motion is normal; there are no regional wall motion abnormalities. - Right ventricle: Systolic function is normal. - Atrial septum: A PFO is not demonstrated by color Doppler or agitated saline contrast. - Mitral valve: There is trace regurgitation. - Aortic valve: There is no evidence of stenosis. There is no significant regurgitation. - Tricuspid valve: There is trace regurgitation. - Pulmonary arteries: Systolic pressure can not be accurately estimated. - Study data: No prior study is available for comparison. Study data: Transthoracic echocardiogram. Procedure: Transthoracic echocardiography was performed. Image quality was fair. A bubble study was performed. Complete 2D, spectral Doppler, and color flow Doppler. Location: Bedside. Patient status: Inpatient. Patient room number: 453-01. No prior study is available for comparison. Rhythm: Normal sinus rhythm. Findings Left ventricle: The cavity size is normal. Wall thickness is mildly increased. Prominent basal septum measuring at 1.8 cm. Systolic function is hyperdynamic. The estimated ejection fraction is 70-75%. Abnormal diastolic function. Wall motion is normal; there are no regional wall motion abnormalities. The outflow tract shows moderate hypertrophy and mild obstruction. Right ventricle: The cavity size is mildly dilated. Wall thickness is mildly increased. Systolic function is normal. Left atrium: The atrium is mildly dilated. Right atrium: The atrium is normal in size. Atrial septum: A PFO is not demonstrated by color Doppler or agitated saline contrast. Negative bubble study images 63 and 64. Mitral valve: The leaflets are mildly thickened. Borderline mitral valve stenosis. There is trace regurgitation. Aortic valve: The annulus is mildly calcified. The valve is trileaflet. The leaflets are mildly thickened. There is no evidence of stenosis. There is no significant regurgitation. Tricuspid valve: The leaflets are normal thickness. There is no evidence of stenosis. There is trace regurgitation. Pulmonic valve: The leaflets are normal thickness. There is no evidence of stenosis. There is trace regurgitation. Aorta: Aortic root: The aortic root is appears normal. Ascending aorta: The ascending aorta is mildly dilated. Aortic arch: The aortic arch is appears normal. Pericardium: There is no significant pericardial effusion. Pulmonary arteries: The main pulmonary artery is normal-sized. Systolic pressure can not be accurately estimated. Systemic veins: Inferior vena cava: The vessel is normal in size. There is (>= 50%) respiratory change in the IVC dimension. Measurements Left ventricle Value Ref Aortic valve Value Ref KELY, LAX 4.5 cm 4.2 - 5.8 Bravo diam, ED 2.3 cm ---- ESD, LAX (L) 2.4 cm 2.5 - 4.0 Peak v, S 2.7 m/sec ---- FS, LAX (H) 47 % 25 - 43 VTI, S 65.4 cm ---- PW, ED, LAX (H) 1.2 cm 0.6 - 1.0 Mean grad, S 16.0 mm Hg ---- IVS/PW, ED 1.06 Peak grad, S 25.0 mm Hg ---- E', lat bravo, TDI (L) 8.2 cm/sec >=10.0 LVOT/AV, VTI ratio 0.57 -- -- E/e', lat bravo, 17 LAURA, VTI 1.78 cm^2 ---- TDI LAURA, Vmax 1.81 cm^2 ---- E', med bravo, TDI (L) 4.5 cm/sec >=7.0 E/e', med bravo, 31 Mitral valve Value Ref TDI Peak E 1.38 m/sec ---- E', avg, TDI 6.4 cm/sec Peak A 1.23 m/sec ---- E/e', avg, TDI (H) 22 <=14 Decel time 261 ms -- -- PHT 82 ms ---- LVOT Value Ref Mean grad, D 5.0 mm Hg ---- Diam, S 2.00 cm Peak grad, D 8.0 mm Hg ---- Area 3.1 cm^2 Peak E/A ratio 1.1 ---- Peak james, S 1.56 m/sec MVA, PHT 2.7 cm^2 ---- VTI, S 37.0 cm Peak grad, S 10 mm Hg Pulmonic valve Value Ref Mean grad, S 6 mm Hg Peak v, S 1.34 m/sec ---- SV 117 ml Peak grad, S 7.0 mm Hg ---- SV/bsa 53 ml/m^2 Aortic root Value Ref Ventricular septum Value Ref Root diam 3.5 cm <4.3 IVS, ED (H) 1.2 cm 0.6 - 1.0 Root max diam, ED 3.5 cm <4.3 Right ventricle Value Ref Ascending aorta Value Ref AW thickness, ED (H) 0.6 cm 0.1 - 0.5 AAo AP diam, S 4.0 cm ---- KELY, LAX 4.1 cm KELY minor ax, A4C (H) 4.0 cm 1.9 - 3.5 Aortic arch Value Ref mid Arch diam 2.0 cm ---- Left atrium Value Ref Decending aorta Value Ref AP dim, ES (H) 4.40 cm 3.00 - Francis peak james 1.34 m/sec ---- 4.00 ML dim, A4C 4.2 cm Inferior vena cava Value Ref SI dim, A4C 5.7 cm Diam 2.0 cm ---- Vol/bsa, ES, 1-p 28 ml/m^2 12 - 37 A4C Vol/bsa, ES, A/L (H) 38 ml/m^2 16 - 34 Right atrium Value Ref SI dim, ES 4.8 cm 3.4 - 5.3 ML dim, ES, A4C 3.9 cm 2.6 - 4.4 SI dim, ES, A4C 4.8 cm 3.4 - 5.3 Estimated RAP 3 mm Hg Legend: (L) and (H) daniela values outside specified reference range. Prepared and electronically signed by Montez Ybarra MD 07/20/2019 15:58
--- NOTE | 2019-07-21 00:19 | DS ---
CC: Daiana Bautista NP * DISCHARGE SUMMARY: DATE OF ADMISSION: 07/17/19 DATE OF DISCHARGE: 07/20/19 ATTENDING PHYSICIAN WHILE IN THE HOSPITAL: Dr. Heredia * (dictated by HOMAR Knutson). PRIMARY CARE PROVIDER: Daiana Bautista NP. PRIMARY DIAGNOSES: 1. Likely transient ischemic attack. 2. Possible Parkinsonism. SECONDARY DIAGNOSES: 1. History of chronic anemia, likely related to anemia of chronic disease. 2. Chronic kidney disease stage 4. 3. Nephrotic syndrome. 4. Hypertension. 5. Hyperlipidemia. 6. Anxiety. 7. Gout. 8. Diet-controlled diabetes mellitus type 2. 9. Peripheral neuropathy. 10. Peripheral vascular disease. SIGNIFICANT STUDIES WHILE IN THE HOSPITAL: EEG on 07/19/19; this is an abnormal awake and drowsy EEG due to frontally predominant, but also diffuse occasional polymorphic slowing of the background. These findings are suggestive of mild, nonspecific diffuse encephalopathy. Brain CT on 07/17/19, impression: No evidence of intracranial mass or hemorrhage. Brain MRI on 07/19/19, impression: Unremarkable MRI of the brain. No restricted diffusion to suggest acute infarct, mass or effusion. Carotid Doppler: There is elevation of the peak systolic velocities of the right internal carotid artery consistent with 50% to 69% right internal carotid artery stenosis, though this may be artifactually exaggerated by tortuous vessels. No left internal carotid artery stenosis. Transthoracic echocardiogram on 07/20/19, EF of 70% to 75%. There are no regional wall motion abnormalities. There is outflow tract moderate hypertrophy and mild obstruction. PERTINENT LAB DATA: Iron panel within normal limits. LDL 76, B12 389, TSH 3.82. HISTORY OF PRESENT ILLNESS/HOSPITAL COURSE: Louie Carrillo is a 63-year-old white male with a past medical history significant for CKD, hypertension, hyperlipidemia, anxiety, diabetes mellitus type 2, who presented to the emergency department due to an episode of slurred speech, confusion, and difficulty ambulating. The patient does not recall this episode himself but his mother did provide good history of this to Dr. Chao, who saw the patient in consultation from neurology service. The patient was admitted for workup regarding this episode. An EEG does not demonstrate any evidence of possible seizure, however, does demonstrate encephalopathy. The MRI ruled out acute infarct and at this point, it appears that the patient likely experienced a TIA. He was started on dual antiplatelet therapy during his hospitalization as well as a statin. Later upon evaluation by followup by Dr. Soriano with the neurology service, he did have concern with Parkinsonism given the patient's gait in addition to his restricted affect, suggested starting Sinemet and therefore this was started on the day prior to discharge. Additionally, the patient has no PFO or ASD demonstrated on echocardiogram, and at this point he is ready for discharge as he is neurologically within normal limits and back to his ambulatory baseline. Additionally, he had acute kidney injury at the time of admission. The etiology of this is unclear, though there were no urine studies collected and it is possibly related to his diuretic use, therefore these were held during his hospital stay. Ultimately, his BUN and creatinine returned back to his baseline. Initially during his hospital stay, his hemoglobin A1c was found to be 6.3 indicating good control. Of note, the patient was minimally hypertensive during his hospital stay, sometimes systolic blood pressure in the 150s. PHYSICAL EXAM ON THE DAY OF DISCHARGE: General: White male, appears older than stated age, sitting in hospital chair, appearing comfortable, in no acute distress with restricted affect. Cardio: Regular rhythm without murmurs, rubs , or gallops. Lungs: Clear to auscultation throughout. Neuro: Sensation grossly intact throughout. Strength 5/5 in all extremities. Speech is clear. The patient is alert and oriented x3. DISCHARGE PLAN: DIET: Carbohydrate consistent diet. ACTIVITY: The patient may return to his normal activity as tolerated. The patient should follow up with Dr. Chao in 1 month. He should follow up with his primary care provider in 7 to 10 days regarding his hospitalization. He should continue Plavix and aspirin for 1 month and ultimately after 1 month he could continue with just aspirin and his Plavix can be discontinued. At the time of followup with his primary care provider, repeat BMP should be performed to demonstrate if there is any further kidney injury and perhaps some adjustments in his antihypertensive should occur, especially considering his significant LVH, which is likely due to longstanding hypertension. Dr. Chao will follow up with patient regarding his Sinemet. The patient was advised to return to the emergency department if he is experiencing unilateral weakness, numbness or tingling, facial droop, slurred speech, loss of consciousness, chest pain, difficulty breathing, or other concerning symptoms. DISCHARGE MEDICATIONS: New medications: 1. Aspirin 81 mg p.o. daily. 2. Lipitor 20 mg p.o. daily. 3. Sinemet 25/100, 0.5 tab p.o. at bedtime. 4. Plavix 75 mg p.o. daily. Continued home medications: 1. Imdur 30 mg p.o. daily. 2. Synthroid 25 mcg p.o. daily. 3. Lasix 20 mg p.o. daily. 4. Metolazone 2.5 mg p.o. daily. 5. Amlodipine 10 mg p.o. daily. 6. Losartan 25 mg p.o. daily. CONDITION ON DISCHARGE: Stable. DISPOSITION: Home. TIME SPENT: Approximately 40 minutes was spent on this discharge, more than half of this time was spent at bedside evaluating the patient, discussing the plan of care. HOMAR KNUTSON [id number]/[facility] #: [id number] MTDHeather
== END 2019-07-20 17:50 | disposition home or self-care (01) | DRG 69 ==
LOC: ED 15:57 → MEDTELE 19:20
PROVIDERS: ADMIT Internal Medicine; ATTEND Internal Medicine
DX: G45.9 Transient cerebral ischemic attack, unspecified (principal); G93.40 Encephalopathy, unspecified; N17.9 Acute kidney failure, unspecified; N04.9 Nephrotic syndrome with unspecified morphologic changes; N18.4 Chronic kidney disease, stage 4 (severe); I13.0 Hypertensive heart and chronic kidney disease with heart failure and stage 1 through stage 4 chronic kidney disease, or unspecified chronic kidney disease; I50.30 Unspecified diastolic (congestive) heart failure; D63.1 Anemia in chronic kidney disease; G20 Parkinson's disease; E11.43 Type 2 diabetes mellitus with diabetic autonomic (poly)neuropathy; E66.3 Overweight; E11.22 Type 2 diabetes mellitus with diabetic chronic kidney disease; E11.42 Type 2 diabetes mellitus with diabetic polyneuropathy; I12.9 Hypertensive chronic kidney disease with stage 1 through stage 4 chronic kidney disease, or unspecified chronic kidney disease; E78.5 Hyperlipidemia, unspecified; F41.9 Anxiety disorder, unspecified; R47.1 Dysarthria and anarthria; M10.9 Gout, unspecified; K31.84 Gastroparesis; Z79.899 Other long term (current) drug therapy; Z88.8 Allergy status to other drugs, medicaments and biological substances; Z82.49 Family history of ischemic heart disease and other diseases of the circulatory system; Z82.5 Family history of asthma and other chronic lower respiratory diseases; Z68.32 Body mass index [BMI] 32.0-32.9, adult
CPT/HCPCS: 36415; 70450; 70551; 80048; 80053; 80061; 81003; 81015; 82607; 82728; 83036; 83540; 83550; 84443; 84484; 85025; 87086; 93005; 93306; 93880; 95700; 95816; 99285; A9270-GY; J1644; J1756

== ENCOUNTER 2019-09-23 10:08 | Emergency (ER) | payer MEDICARE ==
--- OUTSIDE RECORDS SUMMARY | 2019-09-23 10:18 | XMS REPORT | Continuity of Care Document ---
:1955 External Reference #:[id number] Author Name Graham Chao M.D. (transmitted by agent of provider Pam Anderson) Address [address], [place] [address] Care Team Providers Name Role Phone Daiana Bautista FNP - Family Care Team Information Research Biologist [phone] Problems Active Problems Provider Date Sepsis due [...] heart Simran Zhang DO Onset: 06/11/2018 failure Social History Type Date Description Comments Sex Unknown ETOH Use Denies alcohol use Tobacco Use Start: Unknown Patient has never smoked Recreational Drug Use Denies Drug Use Smoking Status Reviewed: 08/12/19 Patient has never smoked Exercise Type/Frequency Does not exercise Allergies, Adverse Reactions, Alerts Active Allergies Reaction Severity Comments Date Blood Pressure Med. pt didnt know what med. 01/15/2017 Medications Active Medications SIG Qnty Indications Ordering Date Provider Carbidopa-Levodopa ER 1 po in the 60tabs G20 Graham Lawton 08/12/2019 morning and 1 Fred Chao 50-200mg Tablets ER at 5 pm Tramadol HCL one by mouth 10tabs M79.671 Arden Watson 10/08/2018 50mg Tablets twice daily as Fred Pinto needed for pain Terbinafine HCL apply to leg 30gm B35.4 Arden Watson 09/23/2018 1% Cream rash twice Fred Pinto daily [facility] Iron 1 by mouth once Daiana Bautista 325(65Fe) mg Tablets daily Nirali, LIDA Butalbital-Acetaminophen 1 tab by mouth Unknown every [...] mouth Unknown 75mg twice a day Tablets Immunizations Description No Information Available Vital Signs Date Vital Result Comment 08/12/2019 10:27am Height 70 inches 5'10" Weight 233.00 lb Heart Rate 56 /min BP Systolic Sitting 122 mmHg BP Diastolic Sitting 80 mmHg BMI (Body Mass Index) 33.4 kg/m2 11/02/2018 3:11pm Height 70 inches 5'10" Weight 227.00 lb Heart Rate 60 /min BP Systolic Sitting 138 mmHg BP Diastolic Sitting 88 mmHg Respiratory Rate 14 /min Body Temperature 97.9 F BMI (Body Mass Index) 32.6 kg/m2 Results Description No Information Available Procedures Date Code Description Status 07/20/2019 48949 ECHO Transthorasic Realtime 2D W Doppler & Color Flow Hosp Completed 07/19/2019 13125 EEG Recording Awake & Drowsy Completed Medical Devices Description No Information Available Encounters Type Date Location Provider Dx Diagnosis Office Visit 07/20/2019 [facility] Soriano MD R41.0 Disorientation, 7:00a unspecified R47.81 Slurred speech R26.2 Difficulty in walking, not elsewhere classified R29.898 Oth symptoms and signs involving the musculoskeletal system Office Visit 07/19/2019 [facility] R41.0 Disorientation, 7:00a Clinic MD Christie unspecified R47.81 Slurred speech R26.2 Difficulty in walking, not elsewhere classified R29.898 Oth symptoms and signs involving the musculoskeletal system Office 07/18/2019 [facility] Lawton R41.0 Disorientation, Visit 7:00a Ronit Chao M.D. unspecified R47.81 Slurred speech R26.2 Difficulty in walking, not elsewhere classified Assessments Date Code Description Provider 08/12/2019 G20 Parkinson's disease Graham Chao M.D. 08/12/2019 G45.9 Transient cerebral ischemic attack, Graham Chao M.D. unspecified 08/12/2019 G31.84 Mild cognitive impairment, so stated Graham Chao M.D. 07/20/2019 G45.9 Transient cerebral ischemic attack, Montez Ybarra M.D. unspecified 07/20/2019 R41.0 Disorientation, unspecified Carlos Soriano MD 07/20/2019 R47.81 Slurred speech Carlos Soriano MD 07/20/2019 R26.2 Difficulty in walking, not elsewhere Carlos Soriano MD classified 07/20/2019 R29.898 Other symptoms and signs involving the Carlos Soriano MD musculoskeletal system 07/19/2019 R41.0 Disorientation, unspecified Carlos Soriano MD 07/19/2019 R47.81 Slurred speech Cralos Soriano MD 07/19/2019 R26.2 Difficulty in walking, not elsewhere Carlos Soriano MD classified 07/19/2019 R29.898 Other symptoms and signs involving the Carlos Soriano MD musculoskeletal system 07/18/2019 R41.0 Disorientation, unspecified Graham Chao M.D. 07/18/2019 R47.81 Slurred speech Graham Chao M.D. 07/18/2019 R26.2 Difficulty in walking, not elsewhere Graham Caho M.D. classified Plan of Treatment Future Appointment(s):02/04/2020 10:00 am - Marcial Goodman NP at [facility]/12/2019 - Graham Chao M.D.G20 Parkinson's diseaseNew Medication: Carbidopa-Levodopa ER 50-200 mg - 1 po in the morning and 1 at 5 pmFollow up:6 months with EricG45.9 Transient cerebral ischemic attack, unspecifiedFollow up: stop Plavix (clopidogrel) but continue JpditxuV98.84 Mild cognitive impairment, so stated Functional Status Description No Information Available Mental Status Description No Information Available Referrals Description No Information Available
--- NOTE | 2019-09-23 10:48 | ED ---
Progress - Progress Note Progress Note: Patient is being seen primarily by Jd Santiago. He reports left hand swelling since a few days ago, worse since last night. He also reports nausea. [facility] and received a tetanus vaccine in his left arm. He denies any alcohol or IV drug use. Medication list reviewed. Allergy list reviewed. Physical Exam: Left hand swelling and erythema at the PIP joint of the middle and ring finger, he cannot bend at those joints; no streaking redness of his forearm. Course/Dx - Course Course Of Treatment: Patient assented by the physician janitorial assistant and I personally saw the patient. Patient here with 4 days of finger swelling and his middle and ring finger at the PIP joint. Patient does have a history of gout but does have limited range of motion in his fingers. Due to this, septic arthritis is in the differential. Patient will have blood performed. Patient eventually had an elevated CRP so orthopedic surgery was counseled to. Patient had an MRI which showed no evidence of septic arthritis of the discharged after the orthopedic surgeon evaluated the patient in person - Diagnoses Provider Diagnoses: Septic arthritis Discharge ED - Sign-Out/Discharge Documenting (check all that apply): Patient Departure - Discharge - Discharge Plan Condition: Good Disposition: HOME - Billing Disposition and Condition Condition: GOOD Disposition: Home - Attestation Statements Document Initiated by Debbie: Yes Documenting Karloibe: Anne Diaz Provider For Whom Debbie is Documenting (Include Credential): Michele Vaughan MD Scribe Attestation: Anne Reyes, scribed for Michele Vaughan MD on 09/23/19 at 1714. Scribe Documentation Reviewed: Yes Provider Attestation: The documentation as recorded by the Anne gifford accurately reflects the service I personally performed and the decisions made by me, Michele Vaughan MD Status of Scribe Document: Viewed
[2019-09-23] MEDS ORDERED: Acetaminophen TAB* 325 MG PO ONE (10:58)
--- NOTE | 2019-09-23 11:14 | ED ---
Upper Extremity Pain - HPI Summary HPI Summary: Pt. is a 63 y.o male who presents to the ER for pain and swelling to left hand x 3-4 days. Pt. denies injury. Pt. notes he has been feeling unwell with subjective fevers. Pt. notes hx of gout but states sxs today feel completely different than prior episodes. Pt. notes he is unable to bend fingers of left hand secondary to pain. Past hx of DM, CKD, anemia, HTN, HLD. Sxs are moderate in severity. Moving and touching left hand makes sxs worse. Nothing improves sxs. Pt. notes he had a tetanus immunization to his left upper arm last week. - History of Current Complaint Chief Complaint: EDGeneral Stated Complaint: SWOLLEN HAND FROM INJECTION PER PT Time Seen by Provider: 09/23/19 10:19 Hx Obtained From: Patient - Allergies/Home Medications Allergies/Adverse Reactions: Allergies Allergy/AdvReac Type Severity Reaction Status Date / Time lisinopril Allergy Difficulty Verified 09/23/19 10:09 Breathing niacin Allergy Rash Verified 09/23/19 10:09 Home Medications: Home Medications amLODIPine TAB* [Norvasc 5 mg TAB*] 10 mg PO DAILY #60 tab 02/21/16 [Rx Confirmed 09/23/19] Isosorbide Mononitrate ER TAB* [Imdur ER TAB*] 30 mg PO DAILY 08/12/17 [History Confirmed 09/23/19] Levothyroxine TAB* [Synthroid 25 MCG TAB*] 25 mcg PO DAILY 08/12/17 [History Confirmed 09/23/19] Losartan TAB* [Cozaar TAB*] 25 mg PO DAILY 06/01/19 [History Confirmed 09/23/19] Metolazone TAB* [Zaroxolyn TAB*] 5 mg PO DAILY 06/01/19 [History Confirmed 09/22] Aspirin EC TAB* [Ecotrin EC Low Dose 81 MG*] 81 mg PO DAILY #30 tab.ec 07/20/19 [Rx Confirmed 09/23/19] Clopidogrel TAB* [Plavix TAB*] 75 mg PO DAILY #30 tab 07/20/19 [Rx Confirmed 07/02] Atorvastatin* [Lipitor 20 MG*] 20 mg PO DAILY 09/23/19 [History Confirmed ] Carbidopa/Levodop CR 50/200(*) [Sinemet CR 50/200(*)] 1 tab PO BID 09/23/19 [ History Confirmed 09/23/19] DOXYcycline CAP(*) [DOXYcycline 100MG CAP(*)] 100 mg PO BID 09/23/19 [History Confirmed 09/23/19] Ferrous Sulfate TAB* 324 mg PO DAILY 09/23/19 [History Confirmed 09/23/19] Furosemide TAB* [Lasix TAB*] 60 mg PO DAILY 09/23/19 [History Confirmed 09/23/19 ] Ketoconazole 1 applic TOPICAL . DIRECTED 09/23/19 [History Confirmed 09/23/19] Ketoconazole 2 % CREAM (NF) [Nizoral 2% CREAM (NF)] 1 applic TOPICAL DAILY 09/22 [History Confirmed 09/23/19] Metoprolol Succinate XL TAB* [Toprol XL TAB*] 125 mg PO DAILY 09/23/19 [History Confirmed 09/23/19] Nystatin CREAM* 1 applic TOPICAL BID 09/23/19 [History Confirmed 09/23/19] Sennosides/Docusate Sodium [Docusate Sodium-Sennosides Tab] 1 each PO DAILY 07/02 [History Confirmed 09/23/19] guaiFENesin [Guaifenesin] 400 mg PO Q4H PRN 09/23/19 [History Confirmed 09/23/19 ] predniSONE 20 mg TAB [Deltasone 20 MG TAB*] 40 mg PO DAILY #10 tab 09/23/19 [Rx] traMADol TAB* [Ultram*] 50 mg PO BEDTIME PRN 09/23/19 [History Confirmed ] PMH/Surg Hx/FS Hx/Imm Hx Previously Healthy: Yes Endocrine/Hematology History: Reports: Hx Diabetes - TYPE 2 / ON ORAL MEDS, Hx Thyroid Disease Cardiovascular History: Reports: Hx Angina, Hx Congestive Heart Failure, Hx Hypercholesterolemia, Hx Hypertension Denies: Hx Coronary Artery Disease, Hx Myocardial Infarction, Hx Pacemaker/ ICD, Hx Valvular Heart Disease, Other Cardiovascular Problems/Disorders Respiratory History: Reports: Hx Chronic Obstructive Pulmonary Disease (COPD), Hx Pneumonia, Other Respiratory Problems/Disorders - uses albuterol inhaler at home Denies: Hx Asthma GI History: Denies: Hx Ulcer History: Reports: Other Problems/Disorders - Chronic kidney disease stage 3 Denies: Hx Kidney Stones Musculoskeletal History: Reports: Hx Back Problems - back pain, Hx Gout, Other Musculoskeletal History - HIP PAIN Denies: Hx Arthritis, Hx Osteoporosis, Hx Scoliosis Sensory History: Reports: Hx Contacts or Glasses Denies: Hx Hearing Aid Opthamlomology History: Reports: Hx Contacts or Glasses Neurological History: Reports: Hx Headaches Denies: Other Neuro Impairments/Disorders Psychiatric History: Reports: Hx Anxiety, Hx Depression, Hx Panic Disorder - Surgical History Surgery Procedure, Year, and Place: POLYPS REMOVED INTESTINE. APPENDECTOMY. KNEE SURGERY 1998. right big toe amputation Hx Anesthesia Reactions: No Infectious Disease History: No Infectious Disease History: Reports: Hx of Known/Suspected MRSA - NARES Denies: Hx Clostridium Difficile, Hx Hepatitis, Hx Human Immunodeficiency Virus (HIV), Hx Shingles, Hx Tuberculosis, Hx Known/Suspected VRE, Hx Known/ Suspected VRSA, History Other Infectious Disease, Traveled Outside the in Last 30 Days - Family History Known Family History: Positive: Cardiac Disease - [place] - grandfather, Hypertension - father, Diabetes - mother, Other - father - asthma, emphysema - Social History Occupation: Disabled Lives: With Family Alcohol Use: None Alcohol Amount: quit Hx Substance Use: No Substance Use Type: Reports: None Hx Tobacco Use: No Smoking Status (MU): Never Smoked Tobacco Review of Systems Constitutional: Negative Negative: Palpitations, Chest Pain Respiratory: Negative Negative: Shortness Of Breath, Cough Gastrointestinal: Negative Positive: Other - swelling and pain to left hand. Neurological/Mental Status: Negative All Other Systems Reviewed And Are Negative: Yes Physical Exam Triage Information Reviewed: Yes Vital Signs On Initial Exam: Initial Vitals Temp Pulse Resp BP Pulse Ox 97.5 F 57 18 135/72 98 09/23/19 10:09/23/19 10:09/23/19 10:09/23/19 10:09/23/19 10:09 Vital Signs Reviewed: Yes Appearance: Positive: Well-Appearing - Pt. sitting up in bed in NAD. Appears older than stated age. Skin: Positive: Warm, Dry Head/Face: Positive: Normal Head/Face Inspection Eyes: Positive: Normal, EOMI Neck: Positive: Supple Respiratory/Lung Sounds: Positive: Clear to Auscultation, Breath Sounds Present Cardiovascular: Positive: Normal, RRR Musculoskeletal: Positive: Other - Moderate edema and erythema to left hand. Mostly located to MCP and PIP joints of 3rd and 4th digits. Hand is very warm to touch. Unable to flex 3rd and 4th digits secondary to pain. No wounds noted. Neurological: Positive: Normal, CN Intact II-III Psychiatric: Positive: Affect/Mood Appropriate Procedures - Sedation Patient Received Moderate/Deep Sedation with Procedure: No Diagnostics - Vital Signs Vital Signs Temp Pulse Resp BP Pulse Ox 09/23/19 10:09 97.5 F 57 18 135/72 98 - Laboratory Result Diagrams: 09/23/19 10:49 09/23/19 10:52 Lab Statement: Any lab studies that have been ordered have been reviewed, and results considered in the medical decision making process. Course/Dx - Course Course Of Treatment: Pt. with moderate edema, erythema and signficiant pain to left hand. Afebrile but notes subjective fever. Pt. examined by Dr. Vaughan as well. Suspect septic arthritis vs gout. CBC shows chronic anemia. CKD. Will hold on colchicine given renal function. Tylenol given for pain. CRP elevated at 90. Uric acid 10. Case discussed with jono Saba., who recommends MRI to evaluate for effusion, IV ancef and admit to hospitalist service. Case discussed with Dr. Steel and she is concerned pt. does not need to be admitted at this time due to concern of bed availability. She would like MRI and ortho to see pt. first. 1330: Pt. examined by ortho PAC, Priya Huitron. Plan to admit to ortho serive. MRI per radiology: IMPRESSION: Soft tissue swelling with fluid surrounding the extensor tendons of the dorsum. of the hand. Findings are consistent with tenosynovitis. Soft tissue edema in the. subcutaneous tissue of the hand is noted. Pt. examined in ED around 1530 by jono Saba. He reviewed MRI and examined pt. Dr. Whitaker feels this is most likely gout and not septic arthritis. Dr. Whitaker recommends discharge home from ED with 40mg pred x 5 days. Thye will see him in office in 2 days. Pt. will return to ER for increasd pain/redness/swelling, fever or if concerned. - Diagnoses Differential Diagnosis/HQI/PQRI: Positive: Arthritis, Bursitis, Septic Arthritis , Strain, Sprain Provider Diagnoses: Septic arthritis Discharge ED - Sign-Out/Discharge Documenting (check all that apply): Patient Departure - Discharge Plan Condition: Good Disposition: HOME - Billing Disposition and Condition Condition: GOOD Disposition: Home - Attestation Statements Provider Attestation: See separate chart Addendum entered and electronically signed by Jd Santiago PA 09/23/19 16:06: ED Addendum Addendum: DIAGNOSIS: GOUT
[2019-09-23 11:19] LABS: ALT < 3 U/L (7-52); AST 8 U/L (13-39); Albumin 3.6 g/dL (3.2-5.2); Alkaline Phosphatase 52 U/L (34-104); Anion Gap 11 mmol/L (2-11); BUN/Creatinine Ratio 19.8 (8-20); Blood Urea Nitrogen 74 mg/dL (6-24); C Reactive Protein 90.84 mg/L (<8.01); CO2 Carbon Dioxide 23 mmol/L (22-32); Calcium 8.6 mg/dL (8.6-10.3); Chloride 97 mmol/L (101-111); EGFR Non-African American 16.5 (>60); Globulin 3.7 g/dL (2-4); Glucose 89 mg/dL (70-100); Potassium 3.7 mmol/L (3.5-5.0); Sodium 131 mmol/L (135-145); Total Protein 7.3 g/dL (6.4-8.9); Uric Acid 10.7 mg/dL (4.4-7.6)
[2019-09-23 11:24] LABS: Influenza A Molecular Negative (Negative); Influenza B Molecular Negative (Negative)
[2019-09-23 12:10] LABS: ABS Basophils 0.1 10^3/ul (0-0.2); ABS Eosinophils 0.1 10^3/ul (0-0.6); ABS Monocytes 0.8 10^3/ul (0-0.8); ABS Neutrophils 7.7 10^3/ul (1.5-7.7); Hematocrit 30 % (42-52); Hemoglobin 10.1 g/dL (14.0-18.0); Lymphocyte % 10.3 %; Mean Corpuscular HGB Conc 34 g/dL (31-36); Mean Corpuscular Hemoglobin 27 pg (27-31); Mean Corpuscular Volume 80 fL (80-94); Mean Platelet Volume 7.8 fL (7.4-10.4); Platelet Count 287 10^3/uL (150-450); Red Blood Count 3.71 10^6 /uL (4.18-5.48); Red Cell Distribution Width 15 % (10-15); White Blood Count 9.7 10^3/uL (3.5-10.8)
[2019-09-23] MEDS ORDERED: ceFAZolin 2 GM PREMIX in ORs 2 GM/50 ML BAG IVPB ONE (12:41)
[2019-09-23] MEDS ORDERED: NS 0.9% 1000 ML** 1,000 ML IV ONE (12:44)
[2019-09-23 13:26] LABS: Erythrocyte Sed Rate 100 mm/Hr (0-19)
[2019-09-23] MEDS ORDERED: diPHENhydraMINE PO* 25 MG PO PRN (14:20)
[2019-09-23] MEDS ORDERED: Ondansetron INJ* 2 MG/ML VIAL IV PRN (14:20)
[2019-09-23] MEDS ORDERED: Ondansetron ODT TAB* 4 MG PO PRN (14:20)
[2019-09-23] MEDS ORDERED: Magnesium Hydroxide LIQ* 30 ML UDC PO PRN (14:20)
[2019-09-23] MEDS ORDERED: oxyCODONE TAB* 5 MG TAB PO PRN ×2 (14:20)
[2019-09-23] MEDS ORDERED: diPHENhydraMINE IV* 50 MG/ML 1 ml VIAL (BENADRYL) IV PRN (14:20)
[2019-09-23] MEDS ORDERED: Morphine INJ* 2 MG/ML 1 ML SYRINGE (TWO MG - NEW SYRINGE VERSION) IV PRN (14:20)
[2019-09-23] MEDS ORDERED: Cyclobenzaprine TAB* 10 MG PO PRN (14:20)
[2019-09-23] MEDS ORDERED: guaiFENesin 100 mg/5 ml LIQ unit dose cup PO PRN (14:31)
[2019-09-23] MEDS ORDERED: traMADol TAB* 50 MG PO PRN (14:31)
--- NOTE | 2019-09-23 15:50 | PN ---
Progress Note - Progress Note Date of Service: 09/23/19 Note: see full consult note for details Left hand with multifocal pain of wrist, 3rd and 4th PIP with mild associated erythema and edema. Most consistent with gout. rec 40 mg prednisone in ER and qd x 5-10 days with follow up with ortho in 2 days. If worsens or becomes systemically ill return to ER. Discussed with Jd GRAF who will DC. Pt seen and examined and MRI reviewed with Dr Whitaker who agrees with assessment and plan
[2019-09-23 16:45] LABS: ABS Basophils 0.1 10^3/ul (0-0.2); ABS Eosinophils 0.1 10^3/ul (0-0.6); ABS Monocytes 0.9 10^3/ul (0-0.8); ABS Neutrophils 7.5 10^3/ul (1.5-7.7); Hematocrit 30 % (42-52); Hemoglobin 10.3 g/dL (14.0-18.0); Lymphocyte % 10.5 %; Mean Corpuscular HGB Conc 34 g/dL (31-36); Mean Corpuscular Hemoglobin 28 pg (27-31); Mean Corpuscular Volume 80 fL (80-94); Mean Platelet Volume 7.5 fL (7.4-10.4); Platelet Count 286 10^3/uL (150-450); Red Blood Count 3.76 10^6 /uL (4.18-5.48); Red Cell Distribution Width 15 % (10-15); White Blood Count 9.5 10^3/uL (3.5-10.8)
[2019-09-23 16:53] LABS: Activated Partial Thrombo Time 32.9 seconds (26.0-38.0); INR 1.19 (0.82-1.09)
[2019-09-23 17:01] LABS: EGFR African American 19.7 (>60); EGFR Non-African American 16.3 (>60)
--- NOTE | 2019-09-23 17:09 | CONS ---
CONSULTATION REPORT: DATE OF CONSULT: 09/23/19. LOCATION: Consult done in the emergency room. ATTENDING ORTHOPEDIC PROVIDER: Dr. Bhaskar Whitaker. CHIEF COMPLAINT: Left hand pain. HISTORY OF PRESENT ILLNESS: The patient is a 63-year-old male who presented to [facility] on 09/23/19 with the complaint of left hand pain, onset 3 days ago, with worsening each day. He reports that he has difficulty flexing and extending fingers as well as wrist. He has had no trauma. He does have a history of gout. He does have a history of MRSA infection. He has not been systemically ill. He has felt that he has had subjective chills, but has had no fever. He has not been recently ill. He did have a tetanus shot in the deltoid of this arm earlier this week with no redness or pain int his area. Pain and redness have not not progressed proximally past the wrist. He has no numbness or tingling. PAST MEDICAL HISTORY: Chronic anemia, stage 4 kidney disease, nephrotic syndrome, hypertension, hyperlipidemia, anxiety, gout, type 2 diabetes. PAST SURGICAL HISTORY: Significant for right great toe amputation due to osteomyelitis, history of knee surgery in the past, status post appendectomy. ALLERGIES: LISINOPRIL and NIACIN. FAMILY HISTORY: Father with RI, pacemaker, asthma. SOCIAL HISTORY: No tobacco, drug, or alcohol use. REVIEW OF SYSTEMS: General: No fever. Positive for chills. HEENT: No headache. No head trauma. Cardiac: No chest pain. Respiratory: No shortness of breath. GI: No abdominal pain, nausea, vomiting, or diarrhea. : No dysuria. Musculoskeletal: Positive for left third, fourth digit and wrist pain. No other extremity pain. Neuro: Sensation intact without any numbness or tingling. PHYSICAL EXAM: Vital Signs: Temperature 97.5, pulse rate 57, respiratory rate 18, oxygen saturation 98% on room air, blood pressure 135/72. General: Well appearing, in no acute distress, nontoxic appearing. HEENT: Normocephalic, atraumatic. Lungs: Normal rate and effort of breathing. Abdomen: Nondistended. Extremities: Bilateral lower extremities and right upper extremity with skin envelope intact. Nontender to palpation. Able to flex and extend all digits without any pain. Left upper extremity: Skin envelope intact. He has erythema spanning from the PIPs of digits 3 and 4 to the MCPs as well as over the wrist with the dorsum of the hand free of erythema, though mildly edematous. This is localized erythema without any streaking proximally. Mildly tender to palpation over erythematous regions without any fluctuance. He is able to tolerate passive flex and extend at the wrist as well as all MCPs and PIPs, though there is limited range of motion of the wrist due to pain as well as limited at the third and fourth MCP and PIP due to pain. Able fully extend all digits and form a loose fist. There is no tenderness of the palm. There is no tenderness along the flexor or extensor tendons within the hand. Swelling is limited to the proximal phalanx of the third and fourth digits. Neuro: Sensation intact to light touch distally. Vascular: DP 2+. Capillary refills in 2 seconds distally. DIAGNOSTIC STUDIES/LAB DATA: Left hand x-ray shows small amount of fluid around the extensor tendons and dorsum of the hand with some soft tissue edema. Hand x- ray on the left shows periarticular erosions at the second and fifth MCPs. White blood cell count 9.7, hemoglobin 10.1, hematocrit 30, platelets 287. White cell differential 79, 10, 8, 1, 0. Chemistry: Sodium 131, potassium 3.7 , creatinine 3.74, uric acid 10.7. CRP 90. Sed rate 100. ASSESSMENT: This is most likely gout demonstrated by multifocal area of pain in the third and fourth digits as well as the wrist, cannot entirely rule out infection, although this is much less likely. PLAN: The patient will be given 40 mg of prednisone p.o. while in the emergency room. Emergency room already gave him some Ancef. He can be discharged on 40 mg daily and see Orthopedics in 2 days. If pain or swelling worsens or if he becomes systemically ill, please return to the emergency room. The patient was seen and examined with Dr. Bhaskar Whitaker who agrees that this is most likely gout and the patient can go home. If he does develop any symptoms consistent with infection such as fever, chills, worsening pain, numbness, decreased range of motion of the digits or wrist then he should return to the emergency room right away. HOMAR MCNEIL [id number]/[facility] #: [id number]/[facility]PS #: [id number] MAG
[2019-09-23 17:15] VITALS: BP 125/66
--- NOTE | 2019-09-23 17:42 | CONS ---
CONSULTATION REPORT: DATE OF CONSULT: ADDENDUM: PHYSICAL EXAM: Vital Signs: Temperature 97.5, pulse rate 57, respiratory rate 18, oxygen saturation 98% on room air, blood pressure 135/72. General: Well appearing, in no acute distress, nontoxic appearing. HEENT: Normocephalic, atraumatic. Extraocular movements are intact. Lungs: Normal rate and effort of breathing. Abdomen: Nondistended. Extremities: Bilateral lower extremities and right upper extremities; skin envelope intact, nontender to palpation, flexes and extends all joints without any pain. Left upper extremity ; skin envelope is intact. He has erythema spanning from the PIPs of digits 3 and 4 to the MCPs as well as over the wrist. This is localized erythema without any streaking. Mildly tender to palpation over these regions without any fluctuance. He is unable to passively flex and extend at the wrist as well as all MCPs and PIPs, though there is limited range of motion of the wrist due to pain as well as at the third and fourth MCP and PIP. Unable to fully strain and form a loose fist. There is no tenderness of the palm. There is no tenderness along the flexor or extensor tendons within the hand. Swelling is limited to the proximal phalanx of the third and fourth digits. There is no fusiform digit. Neuro: Sensation intact to light touch distally. Vascular: DP 2+. Capillary refills in 2 seconds distally. DIAGNOSTIC STUDIES/LAB DATA: Left hand x-ray shows small amount of fluid around the extensor tendons and dorsum of the hand with some soft tissue edema. Hand x- ray on the left shows periarticular erosions at the second and fifth MCPs. White blood cell count 9.7, hemoglobin 10.1, hematocrit 30, platelets 287. White cell differential 79, 10, 8, 1, 0. Chemistry: Sodium 131, potassium 3.7 , creatinine 3.74, uric acid 10.7. CRP 90. Sed rate 100. ASSESSMENT: This is most likely gout with multifocal area of pain in the third and fourth digits as well as the wrist, cannot entirely rule out infection, although this is much less likely. PLAN: The patient will be given 40 mg of prednisone p.o. while in the emergency room. Emergency room already gave him some Ancef. He can be discharged on 40 mg daily and see Orthopedics in 2 days. If pain or swelling worsens or if he becomes systemically ill, please return to the emergency room. The patient was seen and examined with Dr. Bhaskar Whitaker who agrees that this is most likely gout and the patient can go home. If he does develop any symptoms consistent with infection such as fever, chills, worsening pain, numbness, decreased range of motion of the digits or wrist then he should return to the emergency room right away. HOMAR MCNEIL [id number]/[facility] #: [id number] MTDD
[2019-09-23] MEDS ORDERED: Magnesium Hydroxide LIQ* 30 ML UDC PO SCH (21:00)
[2019-09-23] MEDS ORDERED: Docusate CAP* 100 MG PO SCH (21:00)
[2019-09-23] MEDS ORDERED: Carbidopa/Levodop CR 50/200(*) TAB.CR PO SCH (21:00)
[2019-09-23] MEDS ORDERED: Nystatin CREAM* 15 GM TUBE TOPICAL SCH (21:00)
[2019-09-23] MEDS ORDERED: Heparin VIAL(*) 5000 UNITS/ML VIAL (FIVE THOUSAND) SUBCUT SCH (21:00)
[2019-09-23] MEDS ORDERED: Acetaminophen TAB* 325 MG PO SCH (22:00)
[2019-09-23] MEDS ORDERED: DOXYcycline CAP(*) 100 MG PO SCH (23:00)
[2019-09-24] MEDS ORDERED: Levothyroxine TAB* 25 MCG TAB PO SCH (06:00)
[2019-09-24] MEDS ORDERED: Docusate LIQ* 100 MG/10 ML UDC PO SCH (09:00)
[2019-09-24] MEDS ORDERED: Atorvastatin* 20 MG TAB PO SCH (09:00)
[2019-09-24] MEDS ORDERED: Clopidogrel TAB* 75 MG PO SCH (09:00)
[2019-09-24] MEDS ORDERED: Aspirin EC TAB* 81 MG TAB.EC PO SCH (09:00)
[2019-09-24] MEDS ORDERED: amLODIPine TAB* 5 MG PO SCH (09:00)
[2019-09-24] MEDS ORDERED: Isosorbide Mononitrate ER TAB* 30 MG PO SCH (09:00)
[2019-09-24] MEDS ORDERED: Senna TAB 8.6 mg* TAB PO SCH (09:00)
[2019-09-24] MEDS ORDERED: Vitamin THERAPEUTIC TAB PO SCH (09:00)
[2019-09-24] MEDS ORDERED: Ketoconazole 2 % CREAM (NF) 30 GM TUBE TOPICAL SCH (09:00)
[2019-09-24] MEDS ORDERED: Furosemide TAB* 20 MG PO SCH (09:00)
[2019-09-24] MEDS ORDERED: Losartan TAB* 25 MG PO SCH (09:00)
[2019-09-24] MEDS ORDERED: Metoprolol Succinate XL TAB* 50 MG PO SCH (09:00)
[2019-09-24] MEDS ORDERED: Metolazone TAB* 5 MG PO SCH (09:00)
[2019-09-24] MEDS ORDERED: Ferrous Sulfate TAB* 325 MG PO SCH (12:00)
== END 2019-09-23 17:16 | disposition home or self-care (01) ==
LOC: ED 10:08 → SSU 14:20 → UNDOADMIN 14:20
DX: M00.9 Pyogenic arthritis, unspecified (principal); R60.0 Localized edema; E11.22 Type 2 diabetes mellitus with diabetic chronic kidney disease; I13.0 Hypertensive heart and chronic kidney disease with heart failure and stage 1 through stage 4 chronic kidney disease, or unspecified chronic kidney disease; N18.3 Chronic kidney disease, stage 3 (moderate); I50.9 Heart failure, unspecified; E03.9 Hypothyroidism, unspecified; F41.9 Anxiety disorder, unspecified; E78.5 Hyperlipidemia, unspecified; E78.00 Pure hypercholesterolemia, unspecified; J44.9 Chronic obstructive pulmonary disease, unspecified; R51 Headache; Z79.84 Long term (current) use of oral hypoglycemic drugs; Z79.890 Hormone replacement therapy; Z79.899 Other long term (current) drug therapy; Z79.82 Long term (current) use of aspirin; M10.9 Gout, unspecified; Z82.49 Family history of ischemic heart disease and other diseases of the circulatory system; Z89.411 Acquired absence of right great toe
CPT/HCPCS: 36415; 80053; 82565; 84520; 84550; 85025; 85610; 85652; 85730; 86140; 87040; 96365; 96366; 99282; A9270-GY; J0690; J7512

== ENCOUNTER 2020-04-12 03:03 | Inpatient (IN) ==
[2020-04-12 04:05] LABS: ABS Basophils 0.1 10^3/ul (0-0.2); ABS Eosinophils 0.2 10^3/ul (0-0.6); ABS Lymphocytes 0.7 10^3/ul (1.0-4.8); ABS Monocytes 1.2 10^3/ul (0-0.8); ABS Neutrophils 13.1 10^3/ul (1.5-7.7); Eosinophil % 1.1 %; Hematocrit 28 % (42-52); Hemoglobin 9.9 g/dL (14.0-18.0); Lymphocyte % 4.8 %; Mean Corpuscular HGB Conc 35 g/dL (31-36); Mean Corpuscular Hemoglobin 29 pg (27-31); Mean Corpuscular Volume 83 fL (80-94); Mean Platelet Volume 7.4 fL (7.4-10.4); Platelet Count 255 10^3/uL (150-450); Red Blood Count 3.42 10^6 /uL (4.18-5.48); Red Cell Distribution Width 14 % (10-15); White Blood Count 15.3 10^3/uL (3.5-10.8)
[2020-04-12 04:22] LABS: Albumin 3.9 g/dL (3.2-5.2); BUN/Creatinine Ratio 26.1 (8-20); Calcium 8.2 mg/dL (8.6-10.3); EGFR African American 21.9 (>60); EGFR Non-African American 18.1 (>60); Globulin 3.8 g/dL (2-4); Potassium 4.4 mmol/L (3.5-5.0); Total Bilirubin 0.5 mg/dL (0.2-1.0); Total Protein 7.7 g/dL (6.4-8.9)
[2020-04-12 04:25] LABS: Troponin I 0.01 ng/mL (<0.03)
[2020-04-12 04:33] LABS: Activated Partial Thrombo Time 27.2 seconds (26.0-38.0); INR 1.14 (0.82-1.09)
[2020-04-12] MEDS ORDERED: cefTRIAXone 1 gm/50 mL NS BAG 1 GM/50 ML BAG IV ONE (04:45)
[2020-04-12 05:27] LABS: Urine Appearance Clear; Urine Bilirubin Negative (Negative); Urine Blood 1+ (Negative); Urine Color Yellow; Urine Glucose Negative (Negative); Urine Ketones Negative (Negative); Urine Nitrite Negative (Negative); Urine Protein 2+(100 mg/dL) (Negative); Urine Specific Gravity 1.011 (1.010-1.030); Urine Urobilinogen Negative (Negative)
[2020-04-12 06:06] LABS: Urine Bacteria Absent (Absent); Urine Red Blood Cell Trace(0-2/hpf) (Absent); Urine White Blood Cell Absent (Absent)
[2020-04-12] MEDS ORDERED: Furosemide 40 mg/4 ml IV VIAL IV SLOW PU ONE (06:59)
[2020-04-12] MEDS: Azithromycin 500 mg/250 ml NS 500 MG/250 ML BAG IVPB SCH (13:35)
[2020-04-12] MEDS: Heparin 5000 UNITS/ML 1 mL VIAL SUBCUT SCH ×2 (13:35→21:24)
[2020-04-12 16:54] LABS: Influenza A Molecular Negative (Negative); Influenza B Molecular Negative (Negative)
[2020-04-12] MEDS: Carbidopa/Levodop CR 50/200 TAB.CR PO SCH (17:11)
[2020-04-12 22:32] LABS: Erythrocyte Sed Rate 65 mm/Hr (0-19)
[2020-04-13] MEDS: Morphine 2 MG/ML SYRINGE IV PRN ×3 (02:54→21:09)
[2020-04-13] MEDS: Heparin 5000 UNITS/ML 1 mL VIAL SUBCUT SCH ×3 (05:48→21:10)
[2020-04-13] MEDS ORDERED: cefTRIAXone 1 gm/50 mL NS BAG 1 GM/50 ML BAG IVPB SCH (06:00)
[2020-04-13 06:37] LABS: ABS Basophils 0.1 10^3/ul (0-0.2); ABS Monocytes 0.8 10^3/ul (0-0.8); ABS Neutrophils 5.1 10^3/ul (1.5-7.7); Eosinophil % 0.2 %; Hematocrit 27 % (42-52); Hemoglobin 9.7 g/dL (14.0-18.0); Mean Corpuscular HGB Conc 36 g/dL (31-36); Mean Corpuscular Hemoglobin 29 pg (27-31); Mean Corpuscular Volume 82 fL (80-94); Mean Platelet Volume 7.9 fL (7.4-10.4); Platelet Count 219 10^3/uL (150-450); Red Cell Distribution Width 14 % (10-15)
[2020-04-13 06:46] LABS: Calcium 8.1 mg/dL (8.6-10.3); EGFR Non-African American 18.2 (>60); Magnesium 1.9 mg/dL (1.9-2.7); Potassium 3.8 mmol/L (3.5-5.0)
[2020-04-13] MEDS: Aspirin EC 81 mg TAB.EC (enteric coated) PO SCH (07:59)
[2020-04-13] MEDS: Isosorbide Mononit ER 30mg TAB PO SCH (07:59)
[2020-04-13] MEDS: Docusate LIQ 100 MG/10 ML UDC PO SCH (08:00)
[2020-04-13] MEDS: Senna TAB 8.6 mg TAB PO SCH (08:00)
[2020-04-13] MEDS: Carbidopa/Levodop CR 50/200 TAB.CR PO SCH ×2 (08:06→18:20)
[2020-04-13] MEDS: Azithromycin 500 mg/250 ml NS 500 MG/250 ML BAG IVPB SCH (09:08)
[2020-04-13] MEDS ORDERED: Furosemide 40 mg/4 ml IV VIAL IV ONE (09:30)
[2020-04-13] MEDS ORDERED: Vancomycin per Pharmacy 1 EA NOTE FOLLOW UP PRN (10:54)
[2020-04-13] MEDS ORDERED: Cefepime ADVAN 1 GM in NS 0.9% 50 ML 50 ML IVPB SCH (11:00)
[2020-04-13] MEDS ORDERED: Vancomycin 2,000 MG in NS 0.9% 500 ml BAG 500 ML IVPB ONE (11:00)
[2020-04-13] MEDS: Cefepime 1 GM in Dextrose 1 GM/50 ML BAG IV SCH ×2 (11:25→22:29)
[2020-04-14 00:06] LABS: Urine Creatinine Concentration 92.65 mg/dL
[2020-04-14] MEDS: Morphine 2 MG/ML SYRINGE IV PRN ×2 (02:00→10:09)
[2020-04-14] MEDS: Heparin 5000 UNITS/ML 1 mL VIAL SUBCUT SCH ×3 (05:44→21:11)
[2020-04-14] MEDS ORDERED: Vancomycin Random Level NOTE FOLLOW UP ONE (06:00)
[2020-04-14 07:32] LABS: ABS Basophils 0.1 10^3/ul (0-0.2); ABS Eosinophils 0.3 10^3/ul (0-0.6); ABS Lymphocytes 1.3 10^3/ul (1.0-4.8); ABS Monocytes 1.1 10^3/ul (0-0.8); ABS Neutrophils 5.5 10^3/ul (1.5-7.7); Eosinophil % 3.6 %; Hematocrit 26 % (42-52); Hemoglobin 9.2 g/dL (14.0-18.0); Lymphocyte % 15.4 %; Mean Corpuscular HGB Conc 36 g/dL (31-36); Mean Corpuscular Hemoglobin 30 pg (27-31); Mean Corpuscular Volume 83 fL (80-94); Mean Platelet Volume 8.1 fL (7.4-10.4); Platelet Count 213 10^3/uL (150-450); Red Blood Count 3.12 10^6 /uL (4.18-5.48); Red Cell Distribution Width 14 % (10-15); White Blood Count 8.2 10^3/uL (3.5-10.8)
[2020-04-14 07:46] LABS: Anion Gap 11 mmol/L (2-11); BUN/Creatinine Ratio 23.7 (8-20); Blood Urea Nitrogen 85 mg/dL (6-24); C Reactive Protein 69.34 mg/L (<8.01); CO2 Carbon Dioxide 21 mmol/L (22-32); Calcium 7.9 mg/dL (8.6-10.3); Chloride 104 mmol/L (101-111); EGFR Non-African American 17.3 (>60); Glucose 84 mg/dL (70-100); Magnesium 2.1 mg/dL (1.9-2.7); Phosphorus 6.5 mg/dL (2.5-5.0); Sodium 136 mmol/L (135-145)
[2020-04-14 07:52] LABS: % Iron Saturation 10 % (15-55); Iron 28 ug/dL (50-212); Total Iron Binding Capacity 287 mcg/dL (250-450); Transferrin 205 mg/dL (203-362); Unsaturated Iron Binding < 272 ug/dL; Vancomycin Random 16.6 mcg/mL
[2020-04-14 08:08] LABS: Ferritin 107.2 ng/mL (24-336)
[2020-04-14] MEDS: Docusate LIQ 100 MG/10 ML UDC PO SCH (10:03)
[2020-04-14] MEDS: Isosorbide Mononit ER 30mg TAB PO SCH (10:04)
[2020-04-14] MEDS: Aspirin EC 81 mg TAB.EC (enteric coated) PO SCH (10:04)
[2020-04-14] MEDS: Senna TAB 8.6 mg TAB PO SCH (10:07)
[2020-04-14] MEDS: Carbidopa/Levodop CR 50/200 TAB.CR PO SCH ×2 (10:08→18:04)
[2020-04-14] MEDS: Cefepime 1 GM in Dextrose 1 GM/50 ML BAG IV SCH (12:15)
[2020-04-14] MEDS ORDERED: Vancomycin 1000 MG in NS 0.9% 250 ML IVPB ONE (13:00)
[2020-04-15] MEDS ORDERED: Vancomycin Random Level NOTE FOLLOW UP ONE (06:00)
[2020-04-15] MEDS: Heparin 5000 UNITS/ML 1 mL VIAL SUBCUT SCH ×3 (06:18→22:02)
[2020-04-15 07:01] LABS: ABS Basophils 0.1 10^3/ul (0-0.2); ABS Eosinophils 0.3 10^3/ul (0-0.6); ABS Lymphocytes 1.2 10^3/ul (1.0-4.8); ABS Monocytes 0.8 10^3/ul (0-0.8); ABS Neutrophils 4.8 10^3/ul (1.5-7.7); Eosinophil % 4.4 %; Hematocrit 26 % (42-52); Mean Corpuscular HGB Conc 35 g/dL (31-36); Mean Corpuscular Hemoglobin 29 pg (27-31); Mean Corpuscular Volume 83 fL (80-94); Platelet Count 207 10^3/uL (150-450); Red Blood Count 3.07 10^6 /uL (4.18-5.48); Red Cell Distribution Width 14 % (10-15); White Blood Count 7.2 10^3/uL (3.5-10.8)
[2020-04-15 07:17] LABS: BUN/Creatinine Ratio 24.4 (8-20); Calcium 8.1 mg/dL (8.6-10.3); EGFR African American 21.4 (>60); EGFR Non-African American 17.7 (>60); Magnesium 2.2 mg/dL (1.9-2.7); Potassium 4.4 mmol/L (3.5-5.0)
[2020-04-15 07:35] LABS: Vancomycin Random 20.5 mcg/mL
[2020-04-15] MEDS: Aspirin EC 81 mg TAB.EC (enteric coated) PO SCH (09:02)
[2020-04-15] MEDS: Senna TAB 8.6 mg TAB PO SCH (09:02)
[2020-04-15] MEDS: Isosorbide Mononit ER 30mg TAB PO SCH (09:02)
[2020-04-15] MEDS: Docusate LIQ 100 MG/10 ML UDC PO SCH (09:03)
[2020-04-15] MEDS: Carbidopa/Levodop CR 50/200 TAB.CR PO SCH ×2 (09:13→17:20)
[2020-04-15 10:43] LABS: Erythrocyte Sed Rate 79 mm/Hr (0-19)
[2020-04-15] MEDS: Cefepime 1 GM in Dextrose 1 GM/50 ML BAG IV SCH (12:20)
[2020-04-16] MEDS: Heparin 5000 UNITS/ML 1 mL VIAL SUBCUT SCH ×3 (05:50→21:27)
[2020-04-16] MEDS ORDERED: Vancomycin Random Level NOTE FOLLOW UP ONE (06:00)
[2020-04-16 06:20] LABS: ABS Basophils 0.1 10^3/ul (0-0.2); ABS Eosinophils 0.3 10^3/ul (0-0.6); ABS Lymphocytes 1.4 10^3/ul (1.0-4.8); ABS Monocytes 0.8 10^3/ul (0-0.8); ABS Neutrophils 5.3 10^3/ul (1.5-7.7); Eosinophil % 3.4 %; Hematocrit 25 % (42-52); Hemoglobin 8.7 g/dL (14.0-18.0); Lymphocyte % 17.5 %; Mean Corpuscular HGB Conc 35 g/dL (31-36); Mean Corpuscular Hemoglobin 29 pg (27-31); Mean Corpuscular Volume 83 fL (80-94); Mean Platelet Volume 7.6 fL (7.4-10.4); Platelet Count 207 10^3/uL (150-450); Red Blood Count 2.98 10^6 /uL (4.18-5.48); Red Cell Distribution Width 14 % (10-15); White Blood Count 7.8 10^3/uL (3.5-10.8)
[2020-04-16 06:38] LABS: BUN/Creatinine Ratio 24.1 (8-20); Calcium 7.9 mg/dL (8.6-10.3); EGFR African American 20.2 (>60); EGFR Non-African American 16.7 (>60); Potassium 4.8 mmol/L (3.5-5.0)
[2020-04-16 06:43] LABS: Vancomycin Random 17.9 mcg/mL
[2020-04-16] MEDS ORDERED: Vancomycin 750 MG in NS 0.9% 250 ML IVPB ONE (08:30)
[2020-04-16] MEDS: Isosorbide Mononit ER 30mg TAB PO SCH (09:26)
[2020-04-16] MEDS: Aspirin EC 81 mg TAB.EC (enteric coated) PO SCH (09:27)
[2020-04-16] MEDS: Senna TAB 8.6 mg TAB PO SCH (09:27)
[2020-04-16] MEDS: Docusate LIQ 100 MG/10 ML UDC PO SCH (09:28)
[2020-04-16] MEDS: Carbidopa/Levodop CR 50/200 TAB.CR PO SCH ×2 (09:33→16:31)
[2020-04-16] MEDS: Cefepime 1 GM in Dextrose 1 GM/50 ML BAG IV SCH (12:39)
[2020-04-17] MEDS: Heparin 5000 UNITS/ML 1 mL VIAL SUBCUT SCH ×3 (05:23→21:04)
[2020-04-17] MEDS ORDERED: Vancomycin Random Level NOTE FOLLOW UP ONE (06:00)
[2020-04-17 06:51] LABS: ABS Basophils 0.1 10^3/ul (0-0.2); ABS Eosinophils 0.3 10^3/ul (0-0.6); ABS Lymphocytes 1.4 10^3/ul (1.0-4.8); ABS Monocytes 0.7 10^3/ul (0-0.8); ABS Neutrophils 4.9 10^3/ul (1.5-7.7); Eosinophil % 4.3 %; Hematocrit 25 % (42-52); Hemoglobin 8.7 g/dL (14.0-18.0); Lymphocyte % 19.3 %; Mean Corpuscular HGB Conc 35 g/dL (31-36); Mean Corpuscular Hemoglobin 29 pg (27-31); Mean Corpuscular Volume 83 fL (80-94); Mean Platelet Volume 7.9 fL (7.4-10.4); Platelet Count 232 10^3/uL (150-450); Red Blood Count 3.02 10^6 /uL (4.18-5.48); Red Cell Distribution Width 14 % (10-15); White Blood Count 7.5 10^3/uL (3.5-10.8)
[2020-04-17 06:58] LABS: BUN/Creatinine Ratio 25.7 (8-20); Calcium 8.1 mg/dL (8.6-10.3); EGFR African American 19.3 (>60); EGFR Non-African American 15.9 (>60); Potassium 4.8 mmol/L (3.5-5.0)
[2020-04-17 07:49] LABS: Vancomycin Random 20.6 mcg/mL
[2020-04-17] MEDS: Aspirin EC 81 mg TAB.EC (enteric coated) PO SCH (09:07)
[2020-04-17] MEDS: Senna TAB 8.6 mg TAB PO SCH (09:07)
[2020-04-17] MEDS: Isosorbide Mononit ER 30mg TAB PO SCH (09:07)
[2020-04-17] MEDS: Docusate LIQ 100 MG/10 ML UDC PO SCH (09:08)
[2020-04-17] MEDS: Carbidopa/Levodop CR 50/200 TAB.CR PO SCH ×2 (09:18→17:57)
[2020-04-17 11:04] LABS: C Reactive Protein 59.67 mg/L (<8.01)
[2020-04-17] MEDS: Cefepime 1 GM in Dextrose 1 GM/50 ML BAG IV SCH (12:56)
[2020-04-17 14:40] LABS: Chlamydia trachomatis NAA Negative (Negative); Neisseria gonorrhoeae (GC) NAA Negative (Negative)
[2020-04-18] MEDS: Heparin 5000 UNITS/ML 1 mL VIAL SUBCUT SCH ×3 (05:32→22:21)
[2020-04-18] MEDS ORDERED: Vancomycin Random Level NOTE FOLLOW UP ONE (06:00)
[2020-04-18 07:18] LABS: EGFR African American 19.9 (>60); EGFR Non-African American 16.4 (>60)
[2020-04-18 07:21] LABS: Vancomycin Random 17.5 mcg/mL
[2020-04-18] MEDS: Docusate LIQ 100 MG/10 ML UDC PO SCH (08:50)
[2020-04-18] MEDS: Aspirin EC 81 mg TAB.EC (enteric coated) PO SCH (08:50)
[2020-04-18] MEDS: Isosorbide Mononit ER 30mg TAB PO SCH (08:50)
[2020-04-18] MEDS: Senna TAB 8.6 mg TAB PO SCH (08:50)
[2020-04-18] MEDS: Carbidopa/Levodop CR 50/200 TAB.CR PO SCH ×2 (08:58→17:36)
[2020-04-18] MEDS ORDERED: Vancomycin 750 MG in NS 0.9% 250 ML IVPB ONE (11:00)
[2020-04-18] MEDS: Cefepime 1 GM in Dextrose 1 GM/50 ML BAG IV SCH (11:39)
[2020-04-19] MEDS: Heparin 5000 UNITS/ML 1 mL VIAL SUBCUT SCH ×3 (05:44→20:51)
[2020-04-19 07:03] LABS: Hematocrit 23 % (42-52); Hemoglobin 8.1 g/dL (14.0-18.0); Mean Corpuscular HGB Conc 35 g/dL (31-36); Mean Corpuscular Hemoglobin 29 pg (27-31); Mean Corpuscular Volume 82 fL (80-94); Mean Platelet Volume 8.2 fL (7.4-10.4); Platelet Count 221 10^3/uL (150-450); Red Blood Count 2.81 10^6 /uL (4.18-5.48); Red Cell Distribution Width 13 % (10-15); White Blood Count 6.6 10^3/uL (3.5-10.8)
[2020-04-19] MEDS: Isosorbide Mononit ER 30mg TAB PO SCH (09:19)
[2020-04-19] MEDS: Aspirin EC 81 mg TAB.EC (enteric coated) PO SCH (09:21)
[2020-04-19] MEDS: Senna TAB 8.6 mg TAB PO SCH (09:25)
[2020-04-19] MEDS: Carbidopa/Levodop CR 50/200 TAB.CR PO SCH ×2 (09:28→17:48)
[2020-04-19] MEDS: Docusate LIQ 100 MG/10 ML UDC PO SCH (09:29)
[2020-04-19] MEDS: Cefepime 1 GM in Dextrose 1 GM/50 ML BAG IV SCH (12:24)
[2020-04-19 13:16] LABS: C Reactive Protein 43.36 mg/L (<8.01)
[2020-04-20] MEDS ORDERED: Vancomycin Trough Check NOTE FOLLOW UP ONE (06:00)
[2020-04-20] MEDS ORDERED: Vancomycin Random Level NOTE FOLLOW UP ONE (06:00)
[2020-04-20] MEDS: Heparin 5000 UNITS/ML 1 mL VIAL SUBCUT SCH ×2 (06:06→12:54)
[2020-04-20 06:34] LABS: EGFR African American 18.1 (>60); EGFR Non-African American 14.9 (>60)
[2020-04-20 06:35] LABS: Vancomycin Random 18.4 mcg/mL
[2020-04-20] MEDS: Docusate LIQ 100 MG/10 ML UDC PO SCH (09:15)
[2020-04-20] MEDS: Aspirin EC 81 mg TAB.EC (enteric coated) PO SCH (09:15)
[2020-04-20] MEDS: Senna TAB 8.6 mg TAB PO SCH (09:16)
[2020-04-20] MEDS: Isosorbide Mononit ER 30mg TAB PO SCH (09:16)
[2020-04-20] MEDS: Carbidopa/Levodop CR 50/200 TAB.CR PO SCH ×2 (09:19→17:13)
[2020-04-20] MEDS ORDERED: Vancomycin 750 MG in NS 0.9% 250 ML IVPB ONE (10:00)
[2020-04-20] MEDS: Cefepime 1 GM in Dextrose 1 GM/50 ML BAG IV SCH (12:52)
[2020-04-20 21:37] VITALS: BP 130/55
[2020-04-22] MEDS ORDERED: Vancomycin Random Level NOTE FOLLOW UP ONE (06:00)
== END 2020-04-20 20:30 | disposition home or self-care (01) | DRG 540 ==
LOC: ED 03:03 → MED 03:03
PROVIDERS: ADMIT Nurse Practitioner Family; ATTEND Internal Medicine

== ENCOUNTER 2021-02-20 09:07 | Inpatient (IN) ==
[2021-02-20 09:55] LABS: ABS Eosinophils 0.1 10^3/ul (0-0.6); ABS Lymphocytes 1.4 10^3/ul (1.0-4.8); ABS Monocytes 0.5 10^3/ul (0-0.8); ABS Neutrophils 4.3 10^3/ul (1.5-7.7); Eosinophil % 1.1 %; Hematocrit 35 % (42-52); Hemoglobin 11.5 g/dL (14.0-18.0); Lymphocyte % 22.2 %; Mean Corpuscular HGB Conc 33 g/dL (31-36); Mean Corpuscular Hemoglobin 26 pg (27-31); Mean Corpuscular Volume 80 fL (80-94); Nucleated Red Blood Cells % 0.2; Platelet Count 189 10^3/uL (150-450); Red Blood Count 4.42 10^6 /uL (4.18-5.48); Red Cell Distribution Width 15 % (10-15); White Blood Count 6.3 10^3/uL (3.5-10.8)
[2021-02-20 10:10] LABS: Albumin 3.6 g/dL (3.2-5.2); Calcium 7.7 mg/dL (8.6-10.3); EGFR African American 8.3 (>60); EGFR Non-African American 6.9 (>60); Globulin 3.7 g/dL (2-4); Potassium 4.2 mmol/L (3.5-5.0); Total Bilirubin 0.5 mg/dL (0.2-1.0); Total Protein 7.3 g/dL (6.4-8.9)
[2021-02-20] MEDS ORDERED: guaiFENesin 100 mg/5 ml LIQ unit dose cup PO PRN (12:42)
[2021-02-20] MEDS: Heparin 5000 UNITS/ML 1 mL VIAL SUBCUT SCH ×2 (13:38→20:49)
[2021-02-20] MEDS ORDERED: Remdesivir 100 mg Vial 200 MG in NS 0.9% 250 ml 210 ML IV ONE (14:30)
[2021-02-20] MEDS ORDERED: NS 0.9% 1000 ml BAG 1,000 ML IV SCH (14:45)
[2021-02-20] MEDS ORDERED: guaiFENesin/CODIENE 100mg/10mg 5 ML UDC PO PRN (17:40)
[2021-02-20] MEDS ORDERED: Albuterol HFA INHALER 8 gm MDI INH PRN (17:40)
[2021-02-20] MEDS: Carbidopa/Levodop 25/100 MG TAB PO SCH (20:47)
[2021-02-21 04:45] LABS: ABS Eosinophils 0.1 10^3/ul (0-0.6); ABS Lymphocytes 1.7 10^3/ul (1.0-4.8); ABS Monocytes 0.5 10^3/ul (0-0.8); ABS Neutrophils 2.9 10^3/ul (1.5-7.7); Eosinophil % 1.8 %; Hematocrit 35 % (42-52); Hemoglobin 11.3 g/dL (14.0-18.0); Lymphocyte % 32.6 %; Mean Corpuscular HGB Conc 33 g/dL (31-36); Mean Corpuscular Hemoglobin 26 pg (27-31); Mean Corpuscular Volume 80 fL (80-94); Mean Platelet Volume 7.7 fL (7.4-10.4); Platelet Count 168 10^3/uL (150-450); Red Blood Count 4.37 10^6 /uL (4.18-5.48); Red Cell Distribution Width 14 % (10-15); White Blood Count 5.1 10^3/uL (3.5-10.8)
[2021-02-21 04:57] LABS: INR 1.21 (0.86-1.15)
[2021-02-21 05:01] LABS: ALT < 3 U/L (7-52); AST 12 U/L (13-39); Albumin 3.4 g/dL (3.2-5.2); Alkaline Phosphatase 56 U/L (35-149); Anion Gap 11 mmol/L (2-11); Blood Urea Nitrogen 34 mg/dL (6-24); CO2 Carbon Dioxide 25 mmol/L (22-32); Calcium 7.7 mg/dL (8.6-10.3); Chloride 97 mmol/L (101-111); EGFR African American 8.2 (>60); EGFR Non-African American 6.7 (>60); Globulin 3.3 g/dL (2-4); Glucose 62 mg/dL (70-100); Potassium 4.3 mmol/L (3.5-5.0); Sodium 133 mmol/L (135-145); Total Protein 6.7 g/dL (6.4-8.9)
[2021-02-21] MEDS: Heparin 5000 UNITS/ML 1 mL VIAL SUBCUT SCH ×3 (05:47→20:17)
[2021-02-21] MEDS ORDERED: Heparin 1,000 UNIT/ML 10 ml (10,000 UNITS) CATHLAB/DIALYSIS DIALYSIS ONE (08:00)
[2021-02-21] MEDS: Carbidopa/Levodop 25/100 MG TAB PO SCH ×2 (08:33→20:17)
[2021-02-21] MEDS: Isosorbide Mononit ER 30mg TAB PO SCH (08:33)
[2021-02-21] MEDS: Aspirin EC 81 mg TAB.EC (enteric coated) PO SCH (08:33)
[2021-02-21] MEDS ORDERED: Remdesivir 100 mg Vial 100 MG in NS 0.9% 250 ml 230 ML IV SCH ×2 (09:00→21:00)
[2021-02-21 10:17] LABS: Hepatitis B Surface Ab Immune (Immune)
[2021-02-21] MEDS: oxyCODONE/Acetamin 5/325 mg TAB PO PRN ×2 (10:33→18:33)
[2021-02-22 06:04] LABS: ABS Eosinophils 0.1 10^3/ul (0-0.6); ABS Lymphocytes 1.5 10^3/ul (1.0-4.8); ABS Monocytes 0.5 10^3/ul (0-0.8); ABS Neutrophils 3.4 10^3/ul (1.5-7.7); Eosinophil % 1.2 %; Hematocrit 34 % (42-52); Hemoglobin 11.4 g/dL (14.0-18.0); Mean Corpuscular HGB Conc 34 g/dL (31-36); Mean Corpuscular Hemoglobin 26 pg (27-31); Mean Corpuscular Volume 79 fL (80-94); Mean Platelet Volume 8.4 fL (7.4-10.4); Platelet Count 215 10^3/uL (150-450); Red Blood Count 4.33 10^6 /uL (4.18-5.48); Red Cell Distribution Width 15 % (10-15); White Blood Count 5.5 10^3/uL (3.5-10.8)
[2021-02-22] MEDS: Heparin 5000 UNITS/ML 1 mL VIAL SUBCUT SCH ×3 (06:10→20:34)
[2021-02-22 06:12] LABS: INR 1.26 (0.86-1.15)
[2021-02-22 06:24] LABS: ALT < 3 U/L (7-52); AST 9 U/L (13-39); Albumin 3.7 g/dL (3.2-5.2); Alkaline Phosphatase 63 U/L (35-149); Anion Gap 11 mmol/L (2-11); Blood Urea Nitrogen 32 mg/dL (6-24); CO2 Carbon Dioxide 29 mmol/L (22-32); Calcium 8.2 mg/dL (8.6-10.3); Chloride 93 mmol/L (101-111); EGFR Non-African American 8.3 (>60); Globulin 3.8 g/dL (2-4); Glucose 86 mg/dL (70-100); Potassium 4.5 mmol/L (3.5-5.0); Sodium 133 mmol/L (135-145); Total Protein 7.5 g/dL (6.4-8.9)
[2021-02-22] MEDS: Isosorbide Mononit ER 30mg TAB PO SCH (09:17)
[2021-02-22] MEDS: Aspirin EC 81 mg TAB.EC (enteric coated) PO SCH (09:18)
[2021-02-22] MEDS: Carbidopa/Levodop 25/100 MG TAB PO SCH ×2 (09:18→20:34)
[2021-02-22 14:41] LABS: Hepatitis B Surface Antigen Nonreactive (Nonreactive)
[2021-02-22 16:16] LABS: TSH Ultra Thyroid Stim Horm 3.59 mcIU/mL (0.34-5.60)
[2021-02-22] MEDS: oxyCODONE/Acetamin 5/325 mg TAB PO PRN (20:34)
[2021-02-23] MEDS: Heparin 5000 UNITS/ML 1 mL VIAL SUBCUT SCH ×3 (05:57→21:24)
[2021-02-23 06:07] LABS: ABS Eosinophils 0.1 10^3/ul (0-0.6); ABS Lymphocytes 1.9 10^3/ul (1.0-4.8); ABS Monocytes 0.5 10^3/ul (0-0.8); ABS Neutrophils 3.4 10^3/ul (1.5-7.7); Eosinophil % 1.6 %; Hematocrit 34 % (42-52); Hemoglobin 11.2 g/dL (14.0-18.0); Lymphocyte % 31.7 %; Mean Corpuscular HGB Conc 33 g/dL (31-36); Mean Corpuscular Hemoglobin 26 pg (27-31); Mean Corpuscular Volume 80 fL (80-94); Mean Platelet Volume 8.4 fL (7.4-10.4); Nucleated Red Blood Cells % 0.1; Platelet Count 230 10^3/uL (150-450); Red Blood Count 4.31 10^6 /uL (4.18-5.48); Red Cell Distribution Width 15 % (10-15)
[2021-02-23 06:19] LABS: ALT < 3 U/L (7-52); AST 9 U/L (13-39); Albumin 3.6 g/dL (3.2-5.2); Alkaline Phosphatase 59 U/L (35-149); Anion Gap 15 mmol/L (2-11); Blood Urea Nitrogen 42 mg/dL (6-24); CO2 Carbon Dioxide 26 mmol/L (22-32); Calcium 7.9 mg/dL (8.6-10.3); Chloride 92 mmol/L (101-111); EGFR Non-African American 6.6 (>60); Globulin 3.7 g/dL (2-4); Glucose 63 mg/dL (70-100); INR 1.23 (0.86-1.15); Potassium 4.4 mmol/L (3.5-5.0); Sodium 133 mmol/L (135-145); Total Protein 7.3 g/dL (6.4-8.9)
[2021-02-23] MEDS: Carbidopa/Levodop 25/100 MG TAB PO SCH ×2 (08:45→21:23)
[2021-02-23] MEDS: Isosorbide Mononit ER 30mg TAB PO SCH (08:45)
[2021-02-23] MEDS: Aspirin EC 81 mg TAB.EC (enteric coated) PO SCH (08:45)
[2021-02-23] MEDS: oxyCODONE/Acetamin 5/325 mg TAB PO PRN ×2 (09:06→18:23)
[2021-02-23] MEDS: Heparin 1,000 UNIT/ML 10 ml (10,000 UNITS) CATHLAB/DIALYSIS DIALYSIS SCH ×3 (13:16→15:02)
[2021-02-23] MEDS ORDERED: Albumin Human 25% 25 GM/100 ML BTL IV ONE (15:21)
[2021-02-24] MEDS: Heparin 5000 UNITS/ML 1 mL VIAL SUBCUT SCH ×3 (06:11→20:47)
[2021-02-24 07:34] LABS: Hematocrit 37 % (42-52); Hemoglobin 12.5 g/dL (14.0-18.0); Mean Corpuscular HGB Conc 34 g/dL (31-36); Mean Corpuscular Hemoglobin 26 pg (27-31); Mean Corpuscular Volume 79 fL (80-94); Mean Platelet Volume 8.2 fL (7.4-10.4); Platelet Count 271 10^3/uL (150-450); Red Blood Count 4.74 10^6 /uL (4.18-5.48); Red Cell Distribution Width 15 % (10-15); White Blood Count 6.5 10^3/uL (3.5-10.8)
[2021-02-24 07:49] LABS: INR 1.2 (0.86-1.15)
[2021-02-24 07:51] LABS: ALT < 3 U/L (7-52); AST 13 U/L (13-39); Albumin 3.9 g/dL (3.2-5.2); Alkaline Phosphatase 61 U/L (35-149); Anion Gap 12 mmol/L (2-11); Blood Urea Nitrogen 23 mg/dL (6-24); CO2 Carbon Dioxide 28 mmol/L (22-32); Calcium 8.3 mg/dL (8.6-10.3); Chloride 93 mmol/L (101-111); EGFR African American 13.6 (>60); EGFR Non-African American 11.2 (>60); Globulin 4.1 g/dL (2-4); Glucose 62 mg/dL (70-100); Potassium 4.3 mmol/L (3.5-5.0); Sodium 133 mmol/L (135-145)
[2021-02-24 07:55] LABS: ABS Basophils 0.1 10^3/ul (0-0.2); ABS Eosinophils 0.1 10^3/ul (0-0.6); ABS Lymphocytes 1.6 10^3/ul (1.0-4.8); ABS Monocytes 0.5 10^3/ul (0-0.8); ABS Neutrophils 4.3 10^3/ul (1.5-7.7); Eosinophil % 1.3 %; Lymphocyte % 24.3 %
[2021-02-24] MEDS: Aspirin EC 81 mg TAB.EC (enteric coated) PO SCH (08:42)
[2021-02-24] MEDS: Carbidopa/Levodop 25/100 MG TAB PO SCH ×2 (08:42→20:47)
[2021-02-24] MEDS: oxyCODONE/Acetamin 5/325 mg TAB PO PRN ×2 (08:43→20:45)
[2021-02-25] MEDS: Heparin 5000 UNITS/ML 1 mL VIAL SUBCUT SCH ×3 (05:29→20:56)
[2021-02-25] MEDS: Aspirin EC 81 mg TAB.EC (enteric coated) PO SCH (08:46)
[2021-02-25] MEDS: Carbidopa/Levodop 25/100 MG TAB PO SCH ×2 (08:46→20:56)
[2021-02-25] MEDS ORDERED: Isosorbide Mononit ER 30mg TAB PO SCH (09:00)
[2021-02-25] MEDS ORDERED: Dextrose 50% Syringe 50 ml 25 GM/50 ML SYRINGE ONE (09:02)
[2021-02-25 10:01] LABS: INR 1.2 (0.86-1.15)
[2021-02-25 10:09] LABS: ALT < 3 U/L (7-52); AST 11 U/L (13-39); Albumin 3.8 g/dL (3.2-5.2); Alkaline Phosphatase 55 U/L (35-149); Anion Gap 11 mmol/L (2-11); Blood Urea Nitrogen 32 mg/dL (6-24); CO2 Carbon Dioxide 28 mmol/L (22-32); Calcium 8.1 mg/dL (8.6-10.3); Chloride 91 mmol/L (101-111); EGFR Non-African American 8.3 (>60); Globulin 3.7 g/dL (2-4); Glucose 214 mg/dL (70-100); Potassium 3.8 mmol/L (3.5-5.0); Sodium 130 mmol/L (135-145); Total Protein 7.5 g/dL (6.4-8.9)
[2021-02-25] MEDS: oxyCODONE/Acetamin 5/325 mg TAB PO PRN (13:06)
[2021-02-25] MEDS ORDERED: D5NS 0.9% 1000 ml BAG 1,000 ML IV SCH (14:00)
[2021-02-26] MEDS ORDERED: Al Hydrox/Mg Hydrox/Simet LIQ 30 ML UDC PO PRN (03:13)
[2021-02-26] MEDS: Heparin 5000 UNITS/ML 1 mL VIAL SUBCUT SCH ×3 (05:56→21:13)
[2021-02-26] MEDS: Aspirin EC 81 mg TAB.EC (enteric coated) PO SCH (07:34)
[2021-02-26] MEDS: Carbidopa/Levodop 25/100 MG TAB PO SCH ×2 (07:35→21:13)
[2021-02-26] MEDS: Heparin 1,000 UNIT/ML 10 ml (10,000 UNITS) CATHLAB/DIALYSIS DIALYSIS SCH ×2 (13:07→14:01)
[2021-02-26] MEDS: oxyCODONE/Acetamin 5/325 mg TAB PO PRN ×2 (15:03→23:08)
[2021-02-27] MEDS: Heparin 5000 UNITS/ML 1 mL VIAL SUBCUT SCH ×2 (05:47→12:32)
[2021-02-27] MEDS: oxyCODONE/Acetamin 5/325 mg TAB PO PRN (08:44)
[2021-02-27] MEDS: Aspirin EC 81 mg TAB.EC (enteric coated) PO SCH (08:44)
[2021-02-27] MEDS: Carbidopa/Levodop 25/100 MG TAB PO SCH (08:44)
[2021-02-27 11:42] VITALS: BP 91/53
== END 2021-02-27 14:45 | disposition home or self-care (01) | DRG 177 ==
LOC: ED 09:07 → MED 09:07 → SUATTDRO 02-21 07:00
PROVIDERS: ADMIT Hospitalist; ATTEND Internal Medicine